=== PATIENT | female | born 2000 | race Caucasian/White ===

== ENCOUNTER 2023-10-23 14:11 | Outpatient (OUT) | payer OTHER, MEDICAID, SELFPAY ==
--- NOTE | 2023-10-23 14:14 | US_ITS ---
[address] [address] Patient Name: SHIV ZUÑIGA MRN: [id number] date: 2000 Sex: F Assigned Patient Location: [facility] Current Patient Location: [facility] Accession/Order Number: [id number] Exam Date: 10/23/2023 14:14 Report Date: 10/23/2023 15:13 At the request of: MEJIA BROWN Procedure: US OB transvaginal EXAMINATION: US OB transvaginal HISTORY: MISSED MENSES COMPARISON: No relevant comparison available. FINDINGS: Transvaginal images Alcocer intrauterine gestation Gestational sac: 3.18 cm, 8 weeks 1 day CRL: 2.16 cm, 8 weeks 6 days Yolk sac: 3.4 mm Heart rate: 174 beats minute Cervix: Closed, 3.5 cm The ovaries are normal in appearance Clinical age: 8 weeks 5 days Clinical VELMA: 05/29/2024 Ultrasound age: 8 weeks 6 days Ultrasound VELMA: 05/26/2024 US/US OB transvaginal IMPRESSION: Viable alcocer intrauterine gestation measuring 8 weeks 6 days Electronically authenticated by: HYUN WASHINGTON Date: 10/23/2023 15:13
== END 2023-10-23 14:12 | disposition home or self-care (01) ==
LOC: NOMS 14:11
PROVIDERS: PCP Internal Medicine; Visit Provider Obstetrics & Gynecology
DX: Z34.91 Encounter for supervision of normal pregnancy, unspecified, first trimester (principal); Z3A.08 8 weeks gestation of pregnancy; N92.6 Irregular menstruation, unspecified
CPT/HCPCS: 76817

== ENCOUNTER 2023-11-01 11:10 | Outpatient (OUT) | payer OTHER, MEDICAID, SELFPAY ==
[2023-11-01 11:39] LABS: Basophils Percent Auto 0.4 % (0.2-2.0); Eosinophils Absolute Auto 0.1 10^3/uL (0.0-0.7); Eosinophils Percent Auto 1.3 % (0.9-7.0); Hematocrit 37.1 % (36.0-48.0); Hemoglobin 12.6 g/dL (12.0-16.0); Immature Granulocytes Abs Auto 0.04 10^3/uL (0.00-0.03); Immature Granulocytes Pct Auto 0.5 % (0.0-0.5); Lymphocytes Absolute Auto 1.6 10^3/uL (1.2-3.8); Lymphocytes Percent Auto 18.7 % (20.5-60.0); Mean Corpuscular Hemoglobin 30.5 pg (26.7-34.0); Mean Corpuscular Volume 89.8 fL (81.0-99.0); Mean Platelet Volume 10.5 fL (9.5-13.5); Monocytes Absolute Auto 0.8 10^3/uL (0.3-0.8); Neutrophils Absolute Auto 5.9 10^3/uL (1.4-6.5); Neutrophils Percent Auto 70.1 % (43.0-75.0); Platelet Count 231 10^3/uL (150-450); Red Blood Count 4.13 10^6/uL (4.20-5.40); Red Cell Distribution Width 11.9 % (11.0-15.0); White Blood Count 8.4 10^3/uL (4.0-11.0)
[2023-11-01 11:48] LABS: Amphetamine Screen Urine NEGATIVE (NEGATIVE); Barbiturates Screen Urine NEGATIVE (NEGATIVE); Benzodiazepines Screen Urine NEGATIVE (NEGATIVE); Buprenorphine Screen Urine NEGATIVE (NEGATIVE); Cannabinoid Screen Urine NEGATIVE (NEGATIVE); Cocaine Screen Urine NEGATIVE (NEGATIVE); Methadone Screen Urine NEGATIVE (NEGATIVE); Methamphetamines Screen Urine NEGATIVE (NEGATIVE); Opiate Screen Urine NEGATIVE (NEGATIVE); Oxycodone Screen Urine NEGATIVE (NEGATIVE); Phencyclidine Screen Urine NEGATIVE (NEGATIVE); Tricyclic Antidepressant Urine NEGATIVE (NEGATIVE)
[2023-11-01 12:07] LABS: Estimated Average Glucose 103 mg/dL; Glycohemoglobin A1C 5.2 % (4.5-6.2)
[2023-11-01 12:52] LABS: BOX Test Sent Out UNITY
[2023-11-01 12:53] LABS: BOX Test Reference Lab UNITY
[2023-11-02 09:07] LABS: Rapid Plasma Reagin, Quant Non Reactive titer (NonRea<1:1); Rubella Antibodies, IgG 1.53 index (Immune >0.99)
[2023-11-02 11:07] LABS: HBsAg Screen Negative (Negative); HCV Ab Non Reactive (Non Reactive); HIV Ab/p24 Ag Screen Non Reactive (Non Reactive)
== END 2023-11-01 11:11 | disposition home or self-care (01) ==
LOC: LAB 11:11
PROVIDERS: PCP Internal Medicine; Visit Provider Obstetrics & Gynecology
DX: Z34.81 Encounter for supervision of other normal pregnancy, first trimester (principal); Z36.0 Encounter for antenatal screening for chromosomal anomalies; N92.6 Irregular menstruation, unspecified
CPT/HCPCS: 36415; 80307; 83036; 85025; 86592; 86762; 86803; 86850; 86900; 86901; 87086; 87340; 87389

== ENCOUNTER 2023-12-24 19:08 | Outpatient (REF) | payer MEDICAID, SELFPAY ==
--- OUTSIDE RECORDS SUMMARY | 2023-12-24 19:26 | XMS_ITS | CCD ---
Author Organization [facility] Care Team Providers Care Funnel Setter Name Role Phone Chica Whitmore Unavailable Unavailable Terence Pyle Unavailable Unavailable Nataprawira, Avani Unavailable Unavailable Chica Whitmore Unavailable Unavailable Al Bustillo Unavailable Unavailable Terence Pyle Primary Care Provider Pankaj Berger Unavailable Haim FILE CONVERSION OPERATOR-TRIMMING ASSEMBLER, FILE CONVERSION OPERATOR-CEMENT SPRAYER HELPERChica Unavailable Unavailable Terence Pyle Unavailable Unavailable Nataprawira, Avani Unavailable Unavailable Chica Whitmore Unavailable Unavailable Al Bustillo Unavailable Unavailable Terence Pyle Unavailable Unavailable Unavailable Chica Whitmore Unavailable Unavailable OK TYSON Primary Care Physician Pankaj Berger Unavailable Albert White Unavailable Chacho Domingo Unavailable Laura Day Unavailable Brenda Armstrong Unavailable DO Ok Tyson Primary Care Provider [phone] DO Ok Tyson Attending Provider Terence Pyle Primary Care Unavailabl e Self, Referral Referring Unavailable Ms. Chica Whitmore Attending UnavailTerence Munoz Primary Care Unavailemre e Ms. Chica Whitmore Attending Unavaila DO Ok Dlilon Primary Care Provider DO Terence Tolentino Attending Provider DO Chica Newman Attending Provider MD Yuval Pete Admit Provider MD Yuval Pete Attending Provider MD Reyna King Attending Provider Rayray Aquino Attending Unavailable DO Ok Tyson Primary Care Provider JOSE Molina Attending Provider MD Artur Kang Attending Provider Ok Tyson Primary Care Unavailable Yuval Pete Admitting Unavailable Yuval Pete Attending Unavailable Marbella, Ok Primary Care Unavailable Visci, Terence Admitting Unavailable Visci, Terence Attending Unavailable Charleschak, Ok Primary Care Unavailable Kuns - CHC, Florentino Blake Admitting Unavailable Kuns - CHC, Florentino Blake Attending Unavailable Charleschadrake, Ok Primary Care Unavailable Didion, Rahel Admitting Unavailable Didmeagan, Rahel Attending Unavailable Rinkes, Chica Admitting Unavailable Rinravindra, Chica Attending Unavailable Fernando, Reyna Admitting Unavailable Fernando, Reyna Attending Unavailable Marbella, Ok Primary Care Unavailable Chayaompaula, Artur Son Admitting Unavai labtammi Korompaula, Artur Son Attending Unavai lable Marbella, Ok Primary Care Unavailable DIDIONRAHEL Attending Unavailable VISCI, TERENCE Harry Attending Unavailable VISCI, TERENCE Harry Referring Unavailable VISCI, TERENCE Harry Attending Unavailable VISCI, TERENCE Harry Referring Unavailable MARBELLA, OK Munson Attending Unavailable OK TYSON Referring Unavailable VISCI, TERENCE Harry Attending Unavailable VISCI, TERENCE Harry Referring Unavailable NAVID CANTU Attending Unavailable Ok Tyson DO Primary Care Provider Luis Antonio Blas DO Unavailable Allergies Allergy Classification Reported Allergen(s) Allergy Type Date of Onset Reaction(s) Facility (6 sources) Wheat preparation; Translations: [wheat] Drug Allergy 08-30-2022 Abdominal Pain [facility] Medications Current Medications Medication Drug Class(es) Dates Sig (Normalized) Sig (Original) Ajovy (20 sources) Ajovy Active busPIRone hydrochloride 5 mg oral tablet (6 sources) Start: 07-03-2023 take 5 mg by mouth twice daily Buspirone Active 5 MG PO Twice daily July 03, 2023 12:00am Start: 02-16-2020 End: 08-30-2020 take 1 tablet by mouth twice daily busPIRone HCl - 5 MG Oral Tablet take 1 tablet by mouth twice a day Quantity: 60 Refills: 2 Ordered: 09-Mar-2020 Haim GARCIA-MT, Chica GROVES Start : 16-Feb-2020 End : 30-Aug-2020 Complete 1 ml galcanezumab-gnlm 120 mg/ml prefilled syringe (9 sources) Start: 07-09-2023 inject 120 mg by subcutaneous injection once Emgality 120 MG/ML prefilled syringe Inject 120 mg under the skin 1 (one) time 07/09/2023 Active Start: 04-26-2021 Emgality 120 M G/ML Subcutaneous Solution Auto-injector Start 240mg SC x 1 then 120mg SC q monthly Quantity: 1 Refills: 5 Ordered: 26-Apr-2021 Haim GARCIA-MT, Chica GROVES Start : 26-Apr-2021 Active This will replace Ajquynhy with insurance approval. hydrOXYzine pamoate 25 mg oral capsule (20 sources) Antihistamine Start: 01-14-2021 take 1-2 capsules by mouth four times daily as needed for anxiety Vistaril 25 mg Cap 1-2 cap(s), Oral, QID, PRN as needed for anxiety, # 20 cap(s), Refills(s) 0 Start Date: 01/14/21 Status: Ordered Start: 09-13-2019 hydrOXYzine HC l - 25 MG Oral Tablet TAKE 1 TABLET BY MOUTH NEEDED FOR ANXIETY Quantity: 90 Refills: 1 Ordered: 13-Apr-2020 Haim GARCIA-TM, Chica GROVES Start : 13-Sep-2019 Active hyoscyamine sulfate 0.125 mg sublingual tablet (20 sources) Start: 12-20-2020 take 1 tablet under the tongue every four to six hours Hyoscyamine Sulfate SL 0.125 MG 1 tablet under the tongue and allow to dissolve Sublingual every 4-6 hours for 30 days Dec, Active Start: 11-06-2020 Start: 12-24-2019 Hyoscyamine Argueta lfate 0.125 MG Sublingual Tablet Sublingual Quantity: 90 Refills: 0 Ordered: 24-Dec-2019 DO Start : 24-Dec-2019 Active Start: 12-24-2019 Hyoscyamine Argueta lfate 0.125 MG Sublingual Tablet Sublingual Quantity: 90 Refills: 0 Start : 24-Dec-2019 Active take 1 tablet under the tongue three times daily as needed Levsin/SL 0.125 MG 1 tablet under the tongue and allow to dissolve as needed Sublingual Three times a day for 30 Not-Taking ivabradine 5 mg oral tablet (1 source) Hyperpolarization-activated Cyclic Nucleotide-gated Channel Lexi Start: 07-04-2023 take 1 tablet by mouth twice daily at mealtime Ivabradine (Corlanor) 5 mg tablet Active 2.5 MG PO Twice daily 90 90 July 04, 2023 12:00am must administer with a meal/food linaclotide 0.145 mg oral capsule (20 sources) Guanylate Cyclase-C Agonist Start: 2021 Linzess 145 MCG 1 capsule at least 30 minutes before the first meal of the day on an empty stomach Orally Once a day for 30 day(s) Feb, Active Start: 10-16-2020 End: 09-18-2022 take 1 capsule by mouth once daily Linaclotide (Linzess) 72 mcg capsule Discontinued 72 MCG PO Daily October 16, 2020 12:00am September 18, 2022 8:28am Start: 03-16-2020 Linzess 290 MC G Oral Capsule Quantity: 90 Refills: 0 Ordered: 16-Mar-2020 DO Start : 16-Mar-2020 Active Start: 11-17-2019 End: 11-26-2019 take 1 capsule by mouth once daily Linaclotide (Linzess) 145 mcg capsule Discontinued 145 MCG PO Daily November 17, 2019 12:00am November 26, 2019 10:13am take 1 capsule by [facility] every twenty-four hours Linzess 72 MCG 1 cap(s) Orally Once a day for 30 day(s) Active take 1 capsule by [facility] every twenty-four hours Linzess 145 MCG 1 cap(s) Orally Once a day for 30 day(s) Active Linzess Active meclofenamate 100 mg oral capsule (1 source) Start: 05-17-2021 End: 05-22-2021 take 1 capsule by mouth three times daily meclofenamate 100 mg Cap 100 mg = 1 cap(s), Oral, TID, X 5 day(s), # 15 cap(s), Refills(s) 0, Pharmacy: [facility] [id number] [facility] [employer], 157.5, cm, 05/17/21 20:52:00 EDT, Height/Length Dosing, 47.8, kg, 05/17/21 20:52:00 EDT, Weight Dosing Start Date: 05/17/21 Stop Date: 05/22/21 Status: Ordered methylPREDNISolone 4 mg oral tablet (3 sources) Corticosteroid Start: 12-13-2020 Medrol (Dusty) 4 MG as directed Orally for 6 days Dec, Active 24 hr metoprolol succinate 25 mg extended release oral tablet (3 sources) beta-Adrenergic Lexi Start: 10-23-2023 End: 10-22-2024 take 1 tablet by mouth once daily metoprolol succinate XL (Toprol-XL) 25 MG 24 hr tablet Indications: Palpitations Take 1 tablet (25 mg) by mouth Daily Do not crush or chew. 30 tablet 10/23/2023 10/22/2024 Active propranolol hydrochloride 40 mg oral tablet (11 sources) beta-Adrenergic Lexi Start: 07-04-2023 take 40 mg by mouth twice daily Propranolol Active 40 MG PO Twice daily 180 90 July 04, 2023 12:00am Start: 07-03-2023 End: 07-04-2023 take 1 capsule by mouth once daily Propranolol (Inderal La) 80 mg capsule,extended release 24hr Discontinued 80 MG PO Daily July 03, 2023 12:00am July 04, 2023 11:03am Start: 09-26-2017 End: 09-28-2017 take 10 mg by mouth once daily Propranolol Discontinued 10 MG PO Daily September 26, 2017 12:00am September 28, 2017 10:12pm Completed/Discontinued Medications Medication Drug Class(es) Dates Sig (Normalized) Sig (Original) adapalene 0.001 mg/mg / benzoyl peroxide 0.025 mg/mg topical gel (13 sources) Retinoid Start: 07-03-2020 Adapalene-Benzoyl Peroxide 0.1-2.5 % External Gel Quantity: 45 Refills: 0 Ordered: 03-Jul-2020 DO Start : 03-Jul-2020 Active Ajovy 225 MG/1.5ML Subcutaneous Solution Auto-injector (1 source) Start: 11-05-2019 inject 225 mg by subcutaneous injection every month Ajovy 225 MG/1.5ML Subcutaneous Solution Auto-injector INJECT 225 MG Once monthly Quantity: 1 Refills: 3 Haim FILE CONVERSION OPERATOR-TRIMMING ASSEMBLER, FILE CONVERSION OPERATOR-CEMENT SPRAYER HELPER, Chica Start : 05-Nov-2019 Active 1.5 ML Pen [id number] 200 actuat albuterol 0.09 mg/actuat metered dose inhaler (18 sources) beta2-Adrenergic Agonist Start: 12-13-2020 take 2 puff(s) by inhalation every four hours as needed Albuterol Sulfate HFA 108 (90 Base) MCG/ACT 2 puffs as needed Inhalation every 4 hrs Dec, Active Start: 12-13-2020 take 2 puff(s) by in halation every four hours as needed Albuterol Sulfate HFA 108 (90 Base) MCG/ACT 2 puffs as needed Inhalation every 4 hrs Dec, Active Start: 12-13-2020 Start: 12-13-2020 take 2 puff(s) by mo uth every four hours as needed Albuterol Sulfate HFA 108 (90 Base) MCG/ACT Inhalation Aerosol Solution INHALE 2 PUFFS BY MOUTH EVERY 4 HOURS NEEDED Quantity: 7 Refills: 0 Ordered: 13-Dec-2020 DO Start : 13-Dec-2020 Active Start: 12-13-2020 take 2 puff(s) by mo uth every four hours as needed Albuterol Sulfate HFA 108 (90 Base) MCG/ACT Inhalation Aerosol Solution INHALE 2 PUFFS BY MOUTH EVERY 4 HOURS NEEDED Quantity: 7 Refills: 0 Ordered: 13-Dec-2020 DO Start : 13-Dec-2020 Active amitriptyline hydrochloride 25 mg oral tablet (2 sources) Tricyclic Antidepressant Start: 10-25-2020 take 1 tablet by mouth at bedtime Amitriptyline HCl - 25 MG Oral Tablet TAKE 1 TABLET BY MOUTH AT BEDTIME Quantity: 30 Refills: 0 Ordered: 21-Nov-2020 DO Start : 25-Oct-2020 Complete azithromycin 250 mg oral tablet (8 sources) Macrolide Antimicrobial Start: 10-09-2020 End: 10-16-2020 take 1 tablet by mouth once daily Azithromycin (Zithromax Z-Dusty) 250 mg Tablet Discontinued 250 MG PO Daily October 09, 2020 12:00am October 16, 2020 12:31am start on day 2 of therapy first dose given in ER cefdinir 300 mg oral capsule (17 sources) Cephalosporin Antibacterial Start: 11-05-2019 take 2 capsules by mouth once daily Cefdinir 300 MG Oral Capsule TAKE 2 CAPSULES DAILY. Quantity: 2 Refills: 0 Ordered: 05-Nov-2019 Haim HADDADN-TRIMMING ASSEMBLER, FILE CONVERSION OPERATOR-CEMENT SPRAYER HELPERChica Start : 05-Nov-2019 Active cephalexin 500 mg oral capsule (8 sources) Cephalosporin Antibacterial Start: 09-29-2017 End: 03-27-2018 take 1 capsule by mouth every eight hours Cephalexin (Keflex) 500 mg capsule Discontinued 500 MG PO Q8H 30 08September 29, 2017 12:00am March 27, 2018 10:29pm ciprofloxacin 500 mg oral tablet (1 source) Quinolone Antimicrobial Start: 01-02-2021 take 1 tablet by mouth every twelve hours Ciprofloxacin HCl 500 MG 1 tablet Orally every 12 hrs for 14 days Dec, Not-Taking ciprofloxacin 3 mg/ml / dexamethasone 1 mg/ml otic suspension (6 sources) Corticosteroid, Quinolone Antimicrobial Start: 11-19-2020 Ciprofloxacin-Dexa methasone 0.3-0.1 % Otic Suspension INSTILL 4 DROPS INTO EACH EAR TWICE A DAY FOR 7 DAYS Quantity: 8 Refills: 0 Ordered: 19-Nov-2020 DO Start : 19-Nov-2020 Complete Start: 11-19-2020 Ciprodex 0.3-0 .1 % 4 drops into both ears Otic Twice a day for 7 days Nov, Active citalopram 20 mg oral tablet (4 sources) Serotonin Reuptake Inhibitor Start: 08-25-2019 take 1 tablet by mouth once daily Citalopram Hydrobromide 20 MG Oral Tablet take 1 tablet by mouth once daily Quantity: 30 Refills: 3 Haim HADDADN-TRIMMING ASSEMBLER, FILE CONVERSION OPERATOR-CEMENT SPRAYER HELPERChica Start : 25-Aug-2019 Active Start: 08-25-2019 Citalopram Hyd robromide 10 MG Oral Tablet TAKE 1 AND 1/2 TABLETS DAILY. Quantity: 45 Refills: 5 Haim FILE CONVERSION OPERATOR-TRIMMING ASSEMBLER, FILE CONVERSION OPERATOR-CEMENT SPRAYER HELPER, Chica Start : 25-Aug-2019 Active clonazePAM 0.5 mg oral tablet (18 sources) Benzodiazepine Start: 12-25-2020 take 0.5-1 tablets by mouth three times daily as needed for anxiety clonazePAM 0.5 MG Oral Tablet TAKE 1/2-1 TABLET BY MOUTH 3 TIMES A DAY NEEDED FOR ANXIETY Quantity: 60 Refills: 0 Ordered: 25-Jan-2021 DO Start : 25-Dec-2020 Active Start: 10-16-2020 End: 09-18-2022 take 1 tablet by mouth twice daily Clonazepam (Klonopin) 0.5 mg tablet Discontinued 0.5 MG PO Twice daily 23 08October 16, 2020 6:51am September 18, 2022 8:28am dicyclomine hydrochloride 10 mg oral capsule (10 sources) Anticholinergic Start: 10-16-2020 End: 09-18-2022 take 10 mg by mouth three times daily Dicyclomine Discontinued 10 MG PO Three times daily October 16, 2020 12:00am September 18, 2022 8:28am diphenhydrAMINE hydrochloride 25 mg oral capsule (8 sources) Histamine-1 Receptor Antagonist Start: 03-27-2019 End: 11-12-2019 take 25 mg by mouth four times daily Diphenhydramine Hcl Discontinued 25 MG PO Four times daily March 27, 2019 1:00am November 12, 2019 9:48pm docusate sodium 100 mg oral capsule (5 sources) Start: 09-20-2022 End: 07-04-2023 take 1 capsule by mouth once daily Docusate Sodium (Colace) 100 mg capsule Discontinued 100 MG PO Daily September 20, 2022 12:00am July 04, 2023 10:12am doxycycline hyclate 100 mg oral capsule (20 sources) Tetracycline-class Drug Start: 11-26-2019 End: 10-09-2020 take 100 mg by mouth once daily Doxycycline Hyclate Discontinued 100 MG PO Daily November 26, 2019 12:00am October 09, 2020 3:24pm Start: 07-19-2019 Doxycycline Hy clate 100 MG Oral Capsule Quantity: 30 Refills: 0 Ordered: 19-Jul-2019 DO Start : 19-Jul-2019 Active Start: 03-27-2019 End: 11-12-2019 take 100 mg by mouth once daily Doxycycline Hyclate Discontinued 100 MG PO Daily March 27, 2019 1:00am November 12, 2019 9:48pm Doxycycline Not- Taking Doxycycline Acti ve DULoxetine 20 mg delayed release oral capsule (20 sources) Serotonin and Norepinephrine Reuptake Inhibitor Start: 02-05-2019 take 1 capsule by mouth twice daily DULoxetine HCl - 20 MG Oral Capsule Delayed Release Particles TAKE 1 CAPSULE BY MOUTH TWICE A DAY Quantity: 60 Refills: 4 Haim GARCIA-TRIMMING ASSEMBLER, JOSE-Chica CURTIS Start : 05-Feb-2019 Active Start: 10-11-2018 End: 10-16-2020 take 60 mg by mouth once daily Duloxetine Discontinued 60 MG PO Daily October 11, 2018 12:00am October 16, 2020 12:31am Start: 09-30-2018 take 1 capsule by mo ut once daily DULoxetine HCl - 40 MG Oral Capsule Delayed Release Particles TAKE 1 CAPSULE BY MOUTH EVERY DAY Quantity: 30 Refills: 2 Haim HADDADN-MT, JOSE-Chica CURTIS Start : 30-Sep-2018 Active DULoxetine HCl N ot-Taking DULoxetine HCl A ctive 1 ml erenumab-aooe 70 mg/ml auto-injector (7 sources) Start: 04-09-2021 inject 1 mL by subcutaneous injection every month Aimovig 70 MG/ML Subcutaneous Solution Auto-injector ADMINISTER 1 ML UNDER THE SKIN 1 TIME MONTHLY Quantity: 1 Refills: 3 Ordered: 09-Apr-2021 Haim HADDADN-TRIMMING ASSEMBLER, FILE CONVERSION OPERATOR-Chica CURTIS Start : 09-Apr-2021 Active escitalopram 10 mg oral tablet (8 sources) Serotonin Reuptake Inhibitor Start: 09-26-2017 End: 10-11-2018 take 10 mg by mouth once daily Escitalopram Oxalate Discontinued 10 MG PO Daily September 26, 2017 12:00am October 11, 2018 7:25pm Norethindrone-E.Est radiol-Iron (16 sources) Estrogen Start: 03-27-2019 End: 10-09-2020 take 1 tablet by mouth once daily Norethindrone-E.Es tradiol-Iron Discontinued 1 TAB PO Daily March 27, 2019 1:00am October 09, 2020 3:25pm Start: 10-11-2018 End: 03-27-2019 Norethindrone-E.Estradiol-Ir on (03/01 (28)) 1 mg-20 mcg (21)/75 mg (7) tablet Discontinued 1 TAB PO Daily October 11, 2018 12:00am March 27, 2019 10:57pm ferrous sulfate 325 mg oral tablet (5 sources) Start: 09-20-2022 End: 07-04-2023 take 325 mg by mouth once daily Ferrous Sulfate Discontinued 325 MG PO Daily September 20, 2022 12:00am July 04, 2023 10:12am fluconazole 150 mg oral tablet (1 source) Azole Antifungal Start: 06-29-2020 Fluconazole 1 50 MG Oral Tablet Quantity: 1 Refills: 0 Ordered: 29-Jun-2020 DO Start : 29-Jun-2020 Complete FLUoxetine 20 mg oral capsule (20 sources) Serotonin Reuptake Inhibitor Start: 11-29-2020 take 1 capsule by mouth once daily FLUoxetine HCl - 20 MG Oral Capsule TAKE 1 CAPSULE BY MOUTH EVERY DAY Quantity: 90 Refills: 0 Ordered: 29-Nov-2020 DO Start : 29-Nov-2020 Active Start: 11-01-2020 take 1 capsule by mo [facility] once daily FLUoxetine HCl - 10 MG Oral Capsule TAKE ONE CAPSULE BY MOUTH ONE TIME DAILY Quantity: 30 Refills: 0 Ordered: 01-Nov-2020 DO Start : 01-Nov-2020 Active Start: 03-29-2020 take 1 tablet by ashtyn once daily FLUoxetine HCl - 20 MG Oral Tablet TAKE 1 & 1/2 TABLETS BY MOUTH DAILY Quantity: 135 Refills: 1 Ordered: 30-Aug-2020 GERMAIN Manriquez Kathleen Start : 29-Mar-2020 Active Start: 03-29-2020 take 1.5 tablets by mouth once daily FLUoxetine HCl - 20 MG Oral Tablet TAKE 1.5 TABLET Daily Quantity: 45 Refills: 3 GERMAIN Manriquez Kathleen Start : 29-Mar-2020 Active PROzac Active 1.5 ml fremanezumab-vfrm 150 mg/ml prefilled syringe (18 sources) Start: 11-12-2019 End: 09-18-2022 Fremanezumab-Vfrm (Ajovy Autoinjector) 225 mg/1.5 mL auto-injector Discontinued 225 MG SUBCUT As Directed November 12, 2019 12:00am September 18, 2022 8:28am Start: 11-05-2019 End: 04-09-2021 inject 225 mg by subcutaneous injection every month Ajovy 225 MG/1.5ML Subcutaneous Solution Auto-injector INJECT 225 MG Once monthly Quantity: 1 Refills: 3 Ordered: 26-Mar-2021 Haim GARCIA-MT, JOSE-Chica CURTIS Start : 05-Nov-2019 End : 09-Apr-2021 Complete ibuprofen 800 mg oral tablet (16 sources) Nonsteroidal Anti-inflammatory Drug Start: 10-13-2018 End: 03-27-2019 take 800 mg by mouth every six hours Ibuprofen Discontinued 800 MG PO Q6H October 13, 2018 12:00am March 27, 2019 10:57pm Start: 09-29-2017 End: 10-11-2018 Ibuprofen Discontinued 600 M G PO every 6 to 8 hours September 29, 2017 12:00am October 11, 2018 7:25pm Julyl .07/09 (9 sources) .07/09 Not -Taking Act sigifredo ketorolac tromethamine 10 mg oral tablet (20 sources) Nonsteroidal Anti-inflammatory Drug, Cyclooxygenase Inhibitor Start: 03-29-2020 take 1 tablet by mouth every six hours Ketorolac Tromethamine 10 MG Oral Tablet take 1 tablet at headache onset may repeat once in 6 hours if needed. Quantity: 15 Refills: 0 Ordered: 22-Aug-2020 Haim GARCIA-MT, JOSE-Chica CURTIS Start : 29-Mar-2020 Active Start: 03-27-2019 End: 11-12-2019 take 10 mg by mouth four times daily Ketorolac Discontinued 10 MG PO Four times daily March 27, 2019 1:00am November 12, 2019 9:48pm Start: 04-29-2018 take 1 tablet by ashtyn th every six hours Ketorolac Tromethamine 10 MG Oral Tablet take 1 tablet at headache onset may repeat once in 6 hours if needed. Quantity: 15 Refills: 0 Haim GARCIA-MT, JOSE-Chica CURTIS Start : 29-Apr-2018 Active lamoTRIgine 25 mg oral tablet (20 sources) Mood Stabilizer, Anti-epileptic Agent Start: 11-26-2019 End: 10-16-2020 take 50 mg by mouth twice daily Lamotrigine Discontinued 50 MG PO Twice daily November 26, 2019 12:00am October 16, 2020 12:31am Start: 03-27-2019 End: 11-12-2019 take 25 mg by mouth four times daily Lamotrigine Discontinued 25 MG PO Four times daily March 27, 2019 1:00am November 12, 2019 9:48pm Start: 12-30-2018 End: 08-30-2020 take 2 tablets by mouth twice daily lamoTRIgine 25 MG Oral Tablet TAKE 2 TABLETS BY MOUTH TWICE A DAY Quantity: 360 Refills: 0 Ordered: 12-Dec-2019 Haim FILE CONVERSION OPERATOR-TRIMMING ASSEMBLER, FILE CONVERSION OPERATOR-CEMENT SPRAYER HELPER, Chica Start : 30-Dec-2018 End : 30-Aug-2020 Complete lamoTRIgine Not- Taking lamoTRIgine Acti ve LORazepam 0.5 mg oral tablet (20 sources) Benzodiazepine Start: 10-27-2019 End: 10-16-2020 Lorazepam Discontinued 0.5 MG PO As Directed November 12, 2019 12:00am October 16, 2020 12:31am lubiprostone 0.008 mg oral capsule (13 sources) Chloride Channel Activator Start: 12-08-2019 End: 08-30-2020 Amitiza 8 MCG Oral Capsule Quantity: 60 Refills: 0 Ordered: 08-Dec-2019 DO Start : 08-Dec-2019 End : 30-Aug-2020 Complete Start: 12-07-2019 take 1 capsule by mo [facility] twice daily at mealtime Amitiza 8 MCG 1 capsule with food and water Orally Twice a day for 30 day(s) Nov, Not-Taking magnesium oxide 400 mg oral capsule (2 sources) Start: 07-03-2023 End: 07-04-2023 take 400 mg by mouth once daily Magnesium Oxide Discontinued 400 MG PO Daily July 03, 2023 12:00am July 04, 2023 10:12am metoclopramide 10 mg oral tablet (8 sources) Dopamine-2 Receptor Antagonist Start: 03-27-2019 End: 11-12-2019 take 1 tablet by mouth every six hours Metoclopramide Hcl (Reglan) 10 mg tablet Discontinued 10 MG PO Q6H March 27, 2019 1:00am November 12, 2019 9:48pm metroNIDAZOLE 500 mg oral tablet (3 sources) Nitroimidazole Antimicrobial Start: 01-02-2021 take 1 tablet by mouth three times daily metroNIDAZOLE 500 MG Oral Tablet TAKE 1 TABLET BY MOUTH 3 TIMES A DAY FOR 14 DAYS Quantity: 42 Refills: 0 Ordered: 02-Jan-2021 DO Start : 02-Jan-2021 Complete midodrine hydrochloride 5 mg oral tablet (6 sources) alpha-Adrenergic Agonist Start: 05-11-2021 take 1 tablet by mouth three times daily Midodrine HCl - 5 MG Oral Tablet Take 1 tablet by mouth three times a day Quantity: 270 Refills: 0 Ordered: 03-Sep-2021 Haim FILE CONVERSION OPERATOR-TRIMMING ASSEMBLER, FILE CONVERSION OPERATOR-CEMENT SPRAYER HELPER, Chica Start : 11-May-2021 Active Josie 0.25-35 MG-MCG Oral Tablet (5 sources) Start: 05-21-2021 take 3 tablets by mouth once daily, then take 2 tablets by mouth once daily, then take 1 tablet by mouth once daily Josie 0.25-35 MG-MCG Oral Tablet TAKE 3 TABS DAILY FOR 3 DAYS, 2 TABS DAILY FOR 2 DAYS, THEN 1 TABLET DAILY THEREAFTER Quantity: 28 Refills: 0 Ordered: 21-May-2021 DO Start : 21-May-2021 Active minocycline 100 mg oral capsule (13 sources) Tetracycline-class Drug Start: 07-30-2020 Minocycline HCl - 100 MG Oral Capsule Quantity: 30 Refills: 0 Ordered: 30-Jul-2020 DO Start : 30-Jul-2020 Active naproxen 500 mg oral tablet (8 sources) Nonsteroidal Anti-inflammatory Drug Start: 03-27-2019 End: 11-12-2019 take 1 tablet by mouth twice daily Naproxen (Naprosyn) 500 mg tablet Discontinued 500 MG PO Twice daily March 27, 2019 1:00am November 12, 2019 9:48pm nitrofurantoin, macrocrystals 25 mg / nitrofurantoin, monohydrate 75 mg oral capsule (16 sources) Nitrofuran Antibacterial Start: 04-10-2022 End: 09-18-2022 take 1 capsule by mouth every twelve hours at mealtime Nitrofurantoin Monohyd/M-Cryst (Macrobid) 100 mg capsule Discontinued 100 MG PO Q12H April 10, 2022 1:00am September 18, 2022 8:28am Administer with a meal/food: swallow whole; do not open, crush, dissolve, or chew Start: 10-16-2020 End: 03-23-2021 take 1 capsule by mouth every twelve hours at mealtime Nitrofurantoin Monohyd/M-Cryst (Macrobid) 100 mg capsule Discontinued 100 MG PO Q12H 10 October 16, 2020 12:00am March 23, 2021 1:05pm administer with a meal/food; swallow whole; do not open, crush, dissolve , or chew omeprazole 40 mg delayed release oral capsule (20 sources) Proton Pump Inhibitor Start: 10-09-2020 End: 09-18-2022 take 40 mg by mouth once daily Omeprazole Discontinued 40 MG PO Daily 84 84 October 09, 2020 12:00am September 18, 2022 8:29am Omeprazole Activ e ondansetron 4 mg disintegrating oral tablet (20 sources) Serotonin-3 Receptor Antagonist Start: 03-27-2019 End: 11-12-2019 take 4 mg by mouth every eight hours Ondansetron Discontinued 4 MG PO Q8H March 27, 2019 1:00am November 12, 2019 9:48pm Start: 04-29-2018 Zofran 4 MG 1 tablet Orally prn for 21 days Sep, Active Start: 09-29-2017 End: 03-27-2018 take 1 tablet by mouth every eight hours Ondansetron (Zofran Odt) 4 mg tablet,disintegrating Discontinued 4 MG PO Q8H 9 3 September 29, 2017 12:00am March 27, 2018 10:30pm plecanatide 3 mg oral tablet (16 sources) Start: 11-26-2019 Trulance 3 MG Oral Tablet Quantity: 30 Refills: 0 Ordered: 26-Nov-2019 DO Start : 26-Nov-2019 Active Plecanatide (Trulance) 3 mg tablet (8 sources) Start: 11-26-2019 End: 10-09-2020 take 1 tablet by mouth once daily Plecanatide (Trulance) 3 mg tablet Discontinued 3 MG PO Daily November 26, 2019 12:00am October 09, 2020 3:25pm polyethylene glycol 3350 88332 mg powder for oral solution (20 sources) Osmotic Laxative Start: 11-13-2019 End: 10-16-2020 Polyethylene Glycol 3350 (Miralax) 17 gram/dose powder Discontinued 17 GM PO Twice daily 510 November 13, 2019 12:00am October 16, 2020 12:31am MiraLax Active polyethylene glycol 3350 638561 mg / potassium chloride 2970 mg / sodium bicarbonate 6740 mg / sodium chloride 5860 mg / sodium sulfate 42925 mg powder for oral solution (8 sources) Osmotic Laxative Start: 11-17-2019 End: 11-26-2019 Peg 3350-Electrolytes (Golytely) 236-22.74-6.74 -5.86 gram recon soln Discontinued 240 ML PO Once 4000 November 17, 2019 12:00am November 26, 2019 8:47am May drink 240 mLs or 8 ounces every 10 minutes until the entire bottle is consumed predniSONE 5 mg oral tablet (20 sources) Start: 10-09-2020 End: 03-23-2021 Prednisone Discontinued 5 MG PO Daily October 09, 2020 12:00am March 23, 2021 1:05pm take 4 tablets for 14 days. take 3 tablets for 7 days. take 2 tablets for 7 days. take 1 tablet for 7 days. Start: 10-13-2018 End: 10-13-2018 take 40 mg by mouth once daily Prednisone Discontinued 40 MG PO Daily October 13, 2018 12:00am October 13, 2018 6:20pm predniSONE Activ e Ghxnsjob-Wff-Up-Fa (5 sources) Start: 09-18-2022 End: 07-04-2023 take 1 tablet by mouth once Vtpimbrr-Oeu-Rh-Fa Discontinued TAB PO September 18, 2022 12:00am July 04, 2023 10:12am Start: 09-18-2022 take 1 tablet by mouth once Pr enatal Aouucnej-Pna-Ho-Fa Active TAB PO September 18, 2022 12:00am promethazine hydrochloride 12.5 mg oral tablet (20 sources) Phenothiazine Start: 07-03-2023 End: 07-04-2023 take 12.5 mg by mouth every six hours Promethazine Discontinued 12.5 MG PO Every 6 hours July 03, 2023 12:00am July 04, 2023 10:12am Start: 10-09-2020 take 1 tablet by ashtyn every six hours Promethazine HCl 12.5 MG 1 tablet as needed Orally every 6 hrs for 30 day(s) 30 Aug, 2021 Active Start: 09-27-2017 End: 09-28-2017 take 12.5 mg by mouth every six hours Promethazine Discontinued 12.5 MG PO Q6H September 27, 2017 12:00am September 28, 2017 10:12pm rifAXIMin 550 mg oral tablet (2 sources) Rifamycin Antibacterial Start: 11-24-2020 take 1 tablet by mouth three times daily Xifaxan 550 MG Oral Tablet TAKE ONE TABLET BY MOUTH THREE TIMES A DAY FOR 14 DAYS. Quantity: 42 Refills: 0 Ordered: 04-Dec-2020 DO Start : 24-Nov-2020 Complete rizatriptan 5 mg oral tablet (6 sources) Serotonin-1b and Serotonin-1d Receptor Agonist Start: 12-30-2018 take 1 tablet by mouth every two hours as needed, then take 3 tablets by mouth every twenty-four hours as needed Rizatriptan Benzoate 5 MG Oral Tablet TAKE 1 TABLET AT ONSET OF HEADACHE. MAY REPEAT EVERY 2 HOURS NEEDED. MAXIMUM 3 TABLETS IN 24 HOURS. Quantity: 9 Refills: 3 Haim FILE CONVERSION OPERATOR-TRIMMING ASSEMBLER, FILE CONVERSION OPERATOR-CEMENT SPRAYER HELPER, [place] Start : 30-Dec-2018 Active sacrosidase 8500 unt/ml oral solution (13 sources) Sucrose-specific Enzyme Start: 02-23-2021 take 1 mL by mouth three times daily at mealtime Sucraid 8500 UNIT/ML 1 ML Orally TID WITH MEALS AND SNACK for 30 day(s) Feb, Not-Taking Start: 02-23-2021 SUMAtriptan 25 mg oral tablet (8 sources) Serotonin-1b and Serotonin-1d Receptor Agonist Start: 10-11-2018 End: 03-27-2019 Sumatriptan Succinate (Imitrex) 25 mg tablet Discontinued 25 MG PO As Directed October 11, 2018 12:00am March 27, 2019 10:57pm tegaserod 6 mg oral tablet (13 sources) Serotonin-4 Receptor Antagonist Start: 07-11-2020 Zelnorm 6 MG Oral Tablet Quantity: 180 Refills: 0 Ordered: 11-Jul-2020 DO Start : 11-Jul-2020 Active 24 hr topiramate 50 mg extended release oral capsule (16 sources) Start: 10-11-2018 End: 03-27-2019 take 1 capsule by mouth once daily Topiramate (Trokendi Xr) 50 mg capsule,extended release 24hr Discontinued 50 MG PO Daily October 11, 2018 12:00am March 27, 2019 10:57pm Start: 09-26-2017 End: 10-11-2018 take 25 mg by mouth once daily Topiramate Discontinued 25 MG PO Daily September 26, 2017 12:00am October 11, 2018 7:25pm verapamil hydrochloride 40 mg oral tablet (7 sources) Calcium Channel Lexi Start: 03-22-2021 End: 05-30-2021 take 1 tablet by mouth three times daily Verapamil HCl - 40 MG Oral Tablet TAKE 1 TABLET 3 times daily Quantity: 90 Refills: 2 Ordered: 22-Mar-2021 Haim HADDADN-TRIMMING ASSEMBLER, JOSE-CEMENT SPRAYER HELPER, [place] Start : 22-Mar-2021 End : 30-May-2021 Complete Problems Active Problems Problem Classification Problem Date Documented Da te Episodic/Chronic Abdominal pain (20 sources) Unspecified abdominal pain; Translations: [Chronic abdominal pain] Onset: 04-27-2021 Resolved: 04-27-2021 Episodic Anxiety disorders (20 sources) Anxiety; Translations: [Anxiety state, unspecified] Onset: 02-21-2020 10-16-2020 Chronic Cardiac dysrhythmias (20 sources) Postural orthostatic tachycardia syndrome ; Translations: [Other specified cardiac dysrhythmias] 07-03-2023 Chronic Contraceptive and procreative management (1 source) Intrauterine contraception; Translations: [Presence of (intrauterine) contraceptive device] Episodic Fluid and electrolyte disorders (2 sources) Hypokalemia; Translations: [Hypokalemia] Onset: 05-17-2021 Episodic Headache; including migraine (20 sources) Migraine; Translations: [Migraine, unspecified, without mention of intractable migraine without mention of status migrainosus] Onset: 11-25-2021 05-04-2021 Chronic Headache; including migraine (8 sources) Headache; Translations: [Headache] 03-08-2021 Episodic Immunity disorders (13 sources) Immunoglobulin A deficiency; 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 Resolved: 2021 Chronic Menstrual disorders (3 sources) Menometrorrhagia; Translations: [Excessive and frequent menstruation with irregular cycle] Onset: 11-01-2022 11-01-2022 Chronic Mood disorders (6 sources) Mood swings; Translations: [Mood swings] Chronic Mood disorders (17 sources) Mood swings; Translations: [Emotional lability] Episodic Nausea and vomiting (20 sources) Nausea; Translations: [Nausea] Onset: 11-06-2020 Resolved: 11-06-2020 Episodic Nonspecific chest pain (17 sources) Precordial pain; Translations: [Precordial pain] Episodic Other bone disease and musculoskeletal deformities (8 sources) Costal chondritis; Translations: [Chondrocostal junction syndrome [Tietze]] 10-13-2018 Episodic Other circulatory disease (7 sources) Postural orthostatic tachycardia syndrome ; Translations: [POTS (postural orthostatic tachycardia syndrome)] Onset: 07-04-2023 Episodic Other disorders of stomach and duodenum (20 sources) Indigestion; Translations: [Functional dyspepsia] Episodic Other female genital disorders (2 sources) Abnormal uterine bleeding; Translations: [Other specified abnormal uterine and vaginal bleeding] Onset: 05-17-2021 Chronic Other female genital disorders (7 sources) History of past delivery; Translations: [Status post vaginal delivery] 09-19-2022 Episodic Other gastrointestinal disorders (20 sources) Celiac disease; Translations: [Celiac disease] Onset: 11-01-2022 05-04-2021 Chronic Other gastrointestinal disorders (4 sources) Celiac disease; Translations: [Celiac disease] Onset: 11-06-2020 Resolved: 2021 Chronic Other gastrointestinal disorders (17 sources) Other specified diseases of intestine; Translations: [Small intestinal bacterial overgrowth (SIBO)] Onset: 02-15-2021 Resolved: 07-03-2021 Episodic Other nutritional; endocrine; and metabolic disorders (14 sources) Fructose metabolism disorder; 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, unspecified] Chronic Other nutritional; endocrine; and metabolic disorders (1 source) Disorder of fructose metabolism, unspecified Onset: 2021 Resolved: 2021 Chronic Other and delivery including normal (8 sources) ; Translations: [Encounter for supervision of normal , unspecified, unspecified trimester] 04-10-2022 Episodic Other upper respiratory infections (10 sources) Acute pharyngitis, unspecified; Translations: [Acute upper respiratory infection, unspecified] Onset: 11-19-2020 Resolved: 12-13-2020 Episodic Pneumonia (except that caused by tuberculosis or sexually transmitted disease) (8 sources) Pneumonia; Translations: [Pneumonia, unspecified organism] 10-09-2020 Episodic Residual codes; unclassified (5 sources) Gestation period, 38 weeks; Translations: [38 weeks gestation of ] 09-18-2022 Episodic Residual codes; unclassified (2 sources) 38 weeks gestation of ; Translations: [ state, incidental] 09-20-2022 Episodic Residual codes; unclassified (2 sources) Gestation period, 13 weeks; Translations: [13 weeks gestation of ] 11-25-2023 Episodic Substance-related disorders (4 sources) Smoker; Translations: [Nicotine dependence, unspecified, uncomplicated] Onset: 11-01-2022 11-25-2021 Chronic Comment on above: Added secondary to d ocumentation in Social History. Syncope (20 sources) Syncope; Translations: [Syncope and collapse] Episodic Unclassified (1 source) Encounter for immunization; Translations: [Encounter for immunization] Onset: 11-11-2022 Unclassified (1 source) Encounter for care and examination of lactating mother; Translations: [Encounter for care and examination of lactating mother] Onset: 09-23-2022 Unclassified (1 source) Encounter for supervision of normal first , third trimester; Translations: [Encounter for supervision of normal first , third trimester] Onset: 09-18-2022 Unclassified (1 source) Encounter for screening for Streptococcus B; Translations: [Encounter for screening for Streptococcus B] Onset: 09-03-2022 Unclassified (1 source) Encounter for suspected problem with amniotic cavity and membrane ruled out; Translations: [Encounter for suspected problem with amniotic cavity and membrane ruled out] Onset: 08-10-2022 Unclassified (3 sources) OB Reminders Onset: 07-23-2022 07-23-2022 Urinary tract infections (20 sources) Bacterial urinary infection; Translations: [Urinary tract infection, site not specified] 10-16-2020 Episodic Past or Other Problems Problem Classification Problem Date Documented Da te Episodic/Chronic Cardiac dysrhythmias (7 sources) Palpitations; Translations: [Sinus tachycardia] Onset: 05-31-2023 06-18-2023 Episodic Immunizations and screening for infectious disease (4 sources) Contact with and (suspected) exposure to other viral communicable diseases; Translations: [Contact with and (suspected) exposure to other viral communicable diseases Z20.828] Onset: 11-19-2020 Resolved: 04-04-2021 Episodic Malaise and fatigue (9 sources) Asthenia; Translations: [Weakness] Onset: 02-21-2020 04-10-2022 Episodic Other connective tissue disease (20 sources) Pelvic floor dysfunction; Translations: [Other specified disorders of muscle] Onset: 11-01-2022 11-01-2022 Episodic Other connective tissue disease (1 source) Other specified disorders of muscle Onset: 2021 Resolved: 2021 Episodic Other ear and sense organ disorders (1 source) Other infective otitis externa, bilateral; Translations: [Other infective acute otitis externa of both ears H60.393] Onset: 11-19-2020 Resolved: 11-19-2020 Episodic Other gastrointestinal disorders (20 sources) Constipation; Translations: [Constipation, unspecified] Onset: 02-21-2020 11-17-2019 Episodic Other gastrointestinal disorders (3 sources) Constipation, unspecified; Translations: [Constipation K59.00] Onset: 11-06-2020 Resolved: 2021 Episodic Residual codes; unclassified (1 source) 36 weeks gestation of ; Translations: [36 weeks gestation of ] Onset: 09-03-2022 Episodic NEGATED: Highlighted row has not occurred!Residual codes; unclassified (20 sources) Disease Episodic Results Test Name Value Interpretation Reference Range Facility Urinalysis macro (dipstick) panel (U)on 11-25-2023 Bilirubin, UA Negative Negative - 4(70) +++ mg/dL [facility] Blood, UA Negative Negative - 50 Soto/mcL [facility] Clarity, UA Clear [facility] Color, UA Yellow [facility] Glucose, UA Negative Negative - 1999(110) ++++ mg/dL [facility] Interpretation and review of laboratory results Abnormal [facility] Ketones, UA Negative Negative - 160(16) ++++ mg/dL [facility] Leukocytes, UA Trace Negative - 500+++ Adarsh/mcL [facility] Nitrite, UA Negative Negative - Positive [facility] pH, UA 5.5 5 - 9 [facility] Protein, UA Negative Negative - 1999(20) ++++ mg/dL [facility] Spec Grav, UA 1.02 1 - 1.03 [facility] Urobilinogen, UA 0.2 0.2 - 12 mg/dL [facility] FPG ECG *OFFICE ONLY*on 06-11 FPG ECG *OFFICE ONLY* [facility] [place] [address] [place] [address] Electrocardiograph Report Signed Patient: Shiv Evangelista MR#: [id number] : 2000 Acct:[id number] Age/Sex: 23 / F ADM Date: 07/04/23 Loc: [facility] Room: Type: [facility] Attending Dr: Artur Kang MD Ordering Provider: Artur Kang MD Date of Service: 07/04/23 ECG/FPG ECG *OFFICE ONLY*: G90.A - Postural orthostatic tachycardia syndrome [POTS] Copies to: Test Reason : Blood Pressure : / mmHG Vent. Rate : 077 BPM Atrial Rate : 077 BPM P-R Int : 114 ms QRS Dur : 082 ms QT Int : 372 ms P-R-T Axes : 074 076 021 degrees QTc Int : 420 ms Normal sinus rhythm Nonspecific T wave abnormality Abnormal ECG Confirmed by Emmy Jimenez ([id number]) on 07/08/2023 1:09:14 PM Referred By: Electronically Signed By:mEmy Jimenez Transcribed By: MUS Signed By Emmy Jimenez MD 4 [id number] Normal [facility] Automated basophil %Ordered By: YUVAL PETE on 09-19-2022 Basophils/100 WBC (Bld) 0.2 % Normal . [facility] Comment on above: Order Comment: Comme nt Draw at 630 am Performed By: #### C BC #### [address] Automated basophil countOrde red By: YUVAL PETE on 09-19-2022 Basophils (Bld) [#/Vol] 0.0 10*3/uL Normal 0.0-0.2 [facility] Comment on above: Order Comment: Comme nt Draw at 630 am Result Comment: PERF ORMED BY: [place] [address] PATHOLOGIST JAVA DEVELOPER CONSULTANT CRAIG ROWE M.D. Performed By: #### C BC #### [address] Automated blood monocyte cou ntOrdered By: YUVAL PETE on 09-19-2022 Monocytes (Bld) [#/Vol] 1.5 10*3/uL High 0.0-0.8 [facility] Comment on above: Order Comment: Comme nt Draw at 630 am Performed By: #### C BC #### [address] Automated eosinophil %Ordere d By: YUVAL PETE on 09-19-2022 Eosinophils/100 WBC (Bld) 0.1 % Normal . [facility] Comment on above: Order Comment: Comme nt Draw at 630 am Performed By: #### C BC #### [address] Automated eosinophil countOr dered By: YUVAL PETE on 09-19-2022 Eosinophils (Bld) [#/Vol] 0.0 10*3/uL Normal 0.0-0.45 [facility] Comment on above: Order Comment: Comme nt Draw at 630 am Performed By: #### C BC #### [address] Automated monocyte %Ordered By: YUVAL PETE on 09-19-2022 Monocytes/100 WBC (Bld) 10.2 % Normal . [facility] Comment on above: Order Comment: Comme nt Draw at 630 am Performed By: #### C BC #### [address] Automated neutrophil %Ordere d By: YUVAL PETE on 09-19-2022 Neutrophils/100 WBC (Bld) 81.0 % Normal . [facility] Comment on above: Order Comment: Comme nt Draw at 630 am Performed By: #### C BC #### [place] [address] Complete Blood Count Auto Di ffon 09-19-2022 Mean Corpuscular HGB Conc 33.2 g/dL Normal 32.0-35.0 [facility] Comment on above: Order Comment: Comme nt Draw at 630 am Performed By: #### C BC #### [address] NRBC% 0.0 /100{WBC} Normal 0-0.5 [facility] Comment on above: Order Comment: Comme nt Draw at 630 am Performed By: #### C BC #### [address] Erythrocyte distribution wid th [Ratio] by Automated countOrdered By: YUVAL PETE on 09-19-2022 Erythrocyte distribution width (RBC) [Ratio] 13.3 % Normal 11.9-15.3 [facility] Comment on above: Order Comment: Comme nt Draw at 630 am Performed By: #### C BC #### [address] Erythrocytes [#/volume] in B lood by Automated countOrdered By: YUVAL PETE on 09-19-2022 RBC (Bld) [#/Vol] 3.24 10*6/uL Low 3.60-5.00 [facility] Comment on above: Order Comment: Comme nt Draw at 630 am Performed By: #### C BC #### [address] Hematocrit [Volume Fraction] of Blood by Automated countOrdered By: YUVAL PETE on 09-19-2022 Hematocrit (Bld) [Volume fraction] 28.0 % Low 34.0-46.4 [facility] Comment on above: Order Comment: Comme nt Draw at 630 am Performed By: #### C BC #### [address] Hemoglobin [Mass/volume] in BloodOrdered By: YUVAL PETE on 09-19-2022 Hemoglobin (Bld) [Mass/Vol] 9.3 g/dL Low 11.8-15.4 [facility] Comment on above: Order Comment: Comme nt Draw at 630 am Performed By: #### C BC #### [facility] [address] [place] [address] Leukocytes [#/volume] correc dionicio for nucleated erythrocytes in Blood by Automated counOrdered By: YUVAL PETE on 09-19-2022 WBC corrected for nucl RBC Auto (Bld) [#/Vol] 14.2 10*3/uL 3.8-11.6 [facility] Leukocytes [#/volume] in Blo od by Automated countOrdered By: YUVAL PETE on 09-19-2022 WBC (Bld) [#/Vol] 14.2 10*3/uL High 3.8-11.6 [facility] Comment on above: Order Comment: Comme nt Draw at 630 am Performed By: #### C BC #### [place] [address] [place] Lymphocytes [#/volume] in Bl ood by Automated countOrdered By: YUVAL PETE on 09-19-2022 Lymphocytes (Bld) [#/Vol] 1.2 10*3/uL Normal 1.00-4.8 [facility] Comment on above: Order Comment: Comme nt Draw at 630 am Performed By: #### C BC #### [place] [address] [place] Lymphocytes/100 leukocytes i n Blood by Automated countOrdered By: YUVAL PETE on 09-19-2022 Lymphocytes/100 WBC (Bld) 8.5 % Normal . [facility] Comment on above: Order Comment: Comme nt Draw at 630 am Performed By: #### C BC #### [place] [address] [place] MCH [Entitic mass] by Automa dionicio countOrdered By: YUVAL PETE on 09-19-2022 MCH (RBC) [Entitic mass] 28.7 pg Normal 24.7-34.3 [facility] Comment on above: Order Comment: Comme nt Draw at 630 am Performed By: #### C BC #### [address] [place] [address] [place] MCHC Auto (RBC) [Mass/Vol]Or dered By: YUVAL PETE on 09-19-2022 MCHC (RBC) [Mass/Vol] 33.2 g/dL 32.0-35.0 [facility] MCV [Entitic volume] by Auto mated countOrdered By: YUVAL PETE on 09-19-2022 MCV (RBC) [Entitic vol] 86.3 fL Normal 80-100 [facility] Comment on above: Order Comment: Comme nt Draw at 630 am Performed By: #### C BC #### [address] Neutrophils [#/volume] in Bl ood by Automated countOrdered By: YUVAL PETE on 09-19-2022 Neutrophils (Bld) [#/Vol] 11.5 10*3/uL High 1.8-7.7 [facility] Comment on above: Order Comment: Comme nt Draw at 630 am Performed By: #### C BC #### [address] Nucleated erythrocytes [Pres ence] in Blood by Automated countOrdered By: YUVAL PETE on 09-19-2022 Nucleated RBC Auto Ql (Bld) 0.0 /100{WBC} 0-0.5 [facility] Platelet mean volume [Entiti c volume] in Blood by Automated countOrdered By: YUVAL PETE on 09-19-2022 Platelet mean volume (Bld) [Entitic vol] 8.8 fL Normal 6.3-10.7 [facility] Comment on above: Order Comment: Comme nt Draw at 630 am Performed By: #### C BC #### [place] [address] [place] Platelets [#/volume] in Bloo d by Automated countOrdered By: YUVAL PETE on 09-19-2022 Platelets (Bld) [#/Vol] 181 10*3/uL Normal 150-450 [facility] Comment on above: Order Comment: Comme nt Draw at 630 am Performed By: #### C BC #### [address] [place] [address] [place] ABO/RH Typeon 09-18-2022 ABO and Rh group Nom (Bld) Blood group A Rh(D) positive Normal [facility] Comment on above: Result Comment: PERF ORMED BY: [place] [address] PATHOLOGIST JAVA DEVELOPER CONSULTANT CRAIG ROWE M.D. ABO/Rh Retypeon 09-18-2022 ABO/RH Recheck Result Positive Normal [facility] Comment on above: Result Comment: PERF ORMED BY: [place] [address] PATHOLOGIST JAVA DEVELOPER CONSULTANT CRAIG ROWE M.D. Amphetamine Screen Ql (U)Ord ered By: YUVAL PETE on 09-18-2022 Amphetamines Ql (U) Negative Negative [facility] Automated epithelial cells c ount in urine sediment (number/area)Ordered By: YUVAL PETE on 09-18-2022 Epithelial cells Auto (Urine sed) [#/Area] 10-19 [HPF] 0-2 [facility] Automated erythrocytes count in urine sediment (number/area)Ordered By: YUVAL PETE on 09-18-2022 RBC Auto (Urine sed) [#/Area] 0-1 [HPF] 0-4 [facility] Automated leukocytes count i n urine sediment (number/area)Ordered By: YUVAL PETE on 09-18-2022 WBC Auto (Urine sed) [#/Area] 20-49 [HPF] 0-4 [facility] Automated urine color determ inationOrdered By: YUVAL PETE on 09-18-2022 Color (U) Yellow Normal Yellow [facility] Comment on above: Order Comment: Name Collection Type:: Voided Performed By: #### R [place] W RFX #### [facility] , #### CBC #### [facility] [address] Automated urine hyaline cast s count (number/volume)Ordered By: YUVAL PETE on 09-18-2022 Hyaline casts Auto (U) [#/Vol] None seen [LPF] 0-1 [facility] Barbiturates [Presence] in U rine by Screen methodOrdered By: YUVAL PETE on 09-18-2022 Barbiturates Screen Ql (U) Negative Negative [facility] Benzodiazepines Screen Ql (U )Ordered By: YUVAL PETE on 09-18-2022 Benzodiazepines Ql (U) Negative Negative [facility] Benzoylecgonine [Presence] i n Urine by Screen methodOrdered By: YUVAL PETE on 09-18-2022 Benzoylecgonine Screen Ql (U) Negative Negative [facility] Bilirubin Test strip Ql (U)O rdered By: YUVAL PETE on 09-18-2022 Bilirubin Ql (U) Negative Negative [facility] Complete Blood Count Auto Di ffon 09-18-2022 Basophils (Bld) [#/Vol] 0.1 10*3/uL Normal 0.0-0.2 [facility] Comment on above: Result Comment: PERF ORMED BY: [place] [address] PATHOLOGIST JAVA DEVELOPER CONSULTANT CRAIG ROWE M.D. Performed By: #### R W[place] W RFX #### [facility] , #### CBC #### [facility] [address] [place] [address] [place] Basophils/100 WBC (Bld) 0.6 % Normal . [facility] Comment on above: Performed By: #### R W[place] W RFX #### [facility] , #### CBC #### [facility] [address] [place] [address] [place] Eosinophils (Bld) [#/Vol] 0.1 10*3/uL Normal 0.0-0.45 [facility] Comment on above: Performed By: #### R W[place] W RFX #### [facility] , #### CBC #### [facility] [address] [place] [address] [place] Eosinophils/100 WBC (Bld) 0.5 % Normal . [facility] Comment on above: Performed By: #### R W[place] W RFX #### [facility] , #### CBC #### [address] Erythrocyte distribution width (RBC) [Ratio] 13.2 % Normal 11.9-15.3 [facility] Comment on above: Performed By: #### R W[place] W RFX #### [facility] , #### CBC #### [address] Hematocrit (Bld) [Volume fraction] 31.8 % Low 34.0-46.4 [facility] Comment on above: Performed By: #### R W[place] W RFX #### [facility] , #### CBC #### [address] Hemoglobin (Bld) [Mass/Vol] 10.8 g/dL Low 11.8-15.4 [facility] Comment on above: Performed By: #### R W[place] W RFX #### [facility] , #### CBC #### [address] Lymphocytes (Bld) [#/Vol] 1.2 10*3/uL Normal 1.00-4.8 [facility] Comment on above: Performed By: #### R W[place] W RFX #### [facility] , #### CBC #### [place] [address] [place] Lymphocytes/100 WBC (Bld) 11.8 % Normal . [facility] Comment on above: Performed By: #### R WV W RFX #### [facility] , #### CBC #### [address] MCH (RBC) [Entitic mass] 29.0 pg Normal 24.7-34.3 [facility] Comment on above: Performed By: #### R WV W RFX #### [facility] , #### CBC #### [address] MCV (RBC) [Entitic vol] 85.7 fL Normal 80-100 [facility] Comment on above: Performed By: #### R WV W RFX #### [facility] , #### CBC #### [address] Mean Corpuscular HGB Conc 33.8 g/dL Normal 32.0-35.0 [facility] Comment on above: Performed By: #### R WV W RFX #### [facility] , #### CBC #### [address] Monocytes (Bld) [#/Vol] 1.0 10*3/uL High 0.0-0.8 [facility] Comment on above: Performed By: #### R WV W RFX #### [facility] , #### CBC #### [address] Monocytes/100 WBC (Bld) 9.3 % Normal . [facility] Comment on above: Performed By: #### R WV W RFX #### [facility] , #### CBC #### [address] Neutrophils (Bld) [#/Vol] 8.0 10*3/uL High 1.8-7.7 [facility] Comment on above: Performed By: #### R WV W RFX #### [facility] , #### CBC #### [address] Neutrophils/100 WBC (Bld) 77.8 % Normal . [facility] Comment on above: Performed By: #### R WV W RFX #### [facility] , #### CBC #### [facility] [address] NRBC% 0.1 /100{WBC} Normal 0-0.5 [facility] Comment on above: Performed By: #### R WV W RFX #### [facility] , #### CBC #### [facility] [address] [place] [address] Platelet mean volume (Bld) [Entitic vol] 8.9 fL Normal 6.3-10.7 [facility] Comment on above: Performed By: #### R WV W RFX #### [facility] , #### CBC #### [facility] [address] [place] [address] Platelets (Bld) [#/Vol] 195 10*3/uL Normal 150-450 [facility] Comment on above: Performed By: #### R WV W RFX #### [facility] , #### CBC #### [facility] [address] [place] [address] RBC (Bld) [#/Vol] 3.72 10*6/uL Normal 3.60-5.00 [facility] Comment on above: Performed By: #### R WV W RFX #### [facility] , #### CBC #### [facility] [address] [place] [address] WBC (Bld) [#/Vol] 10.3 10*3/uL Normal 3.8-11.6 [facility] Comment on above: Performed By: #### R WV W RFX #### [facility] , #### CBC #### [facility] [address] [place] [address] Dipstick and Microscopicon 0 09-18-2022 Appearance (U) Cloudy Critically abnormal Clear [facility] Comment on above: Order Comment: Name Collection Type:: Voided Performed By: #### R WV W RFX #### [facility] , #### CBC #### [address] Bacteria,Urine 2+ High None Seen [facility] Comment on above: Order Comment: Name Collection Type:: Voided Performed By: #### R WV W RFX #### [facility] , #### CBC #### [address] Bilirubin,Urine Negative Normal Negative [facility] Comment on above: Order Comment: Name Collection Type:: Voided Performed By: #### R WV W RFX #### [facility] , #### CBC #### [address] Glucose Ql (U) Normal Normal Normal [facility] Comment on above: Order Comment: Name Collection Type:: Voided Performed By: #### R WV W RFX #### [facility] , #### CBC #### [address] Hyaline Casts,Urine None Seen Normal 0-1 [facility] Comment on above: Order Comment: Name Collection Type:: Voided Result Comment: PERF ORMED BY: [place] [address] PATHOLOGIST JAVA DEVELOPER CONSULTANT CRAIG ROWE M.D. Performed By: #### R WV W RFX #### [facility] , #### CBC #### [address] Ketones Ql (U) Negative Normal Negative [facility] Comment on above: Order Comment: Name Collection Type:: Voided Performed By: #### R WV W RFX #### [facility] , #### CBC #### [address] Leukocyte esterase Test strip Ql (U) 4+ High Negative [facility] Comment on above: Order Comment: Name Collection Type:: Voided Performed By: #### R WV W RFX #### [facility] , #### CBC #### [address] Nitrite,Urine Negative Normal Negative [facility] Comment on above: Order Comment: Name Collection Type:: Voided Performed By: #### R WV W RFX #### [facility] , #### CBC #### [address] Occult Blood,Urine Trace High Negative [facility] Comment on above: Order Comment: Name Collection Type:: Voided Result Comment: PERF ORMED BY: [place] [address] PATHOLOGIST JAVA DEVELOPER CONSULTANT CRAIG ROWE M.D. Performed By: #### R WV W RFX #### [facility] , #### CBC #### [address] Protein,Urine Negative Normal Negative [facility] Comment on above: Order Comment: Name Collection Type:: Voided Performed By: #### R WV W RFX #### [facility] , #### CBC #### [facility] [address] [place] [address] [place] RBC LM.HPF (Urine sed) [#/Area] 0 /[HPF] Normal 0-4 [facility] Comment on above: Order Comment: Name Collection Type:: Voided Performed By: #### R WV W RFX #### [facility] , #### CBC #### [address] Specificy Abbot,Urine 1.004 Normal 1.001-1.030 [facility] Comment on above: Order Comment: Name Collection Type:: Voided Performed By: #### R WV W RFX #### [facility] , #### CBC #### [facility] [address] [place] [address] Squamous Epithelial Cell,Urine 10-19 High 0-2 [facility] Comment on above: Order Comment: Name Collection Type:: Voided Performed By: #### R WV W RFX #### [facility] , #### CBC #### [address] Urobilinogen,Urine Normal Normal Normal [facility] Comment on above: Order Comment: Name Collection Type:: Voided Performed By: #### R WV W RFX #### [facility] , #### CBC #### [address] WBC,Urine 20-49 High 0-4 [facility] Comment on above: Order Comment: Name Collection Type:: Voided Performed By: #### R WV W RFX #### [facility] , #### CBC #### [address] Ketones Auto test strip (U) [Mass/Vol]Ordered By: YUVAL PETE on 09-18-2022 Ketones (U) [Mass/Vol] Negative Negative [facility] Nitrite Test strip Ql (U)Ord ered By: YUVAL PETE on 09-18-2022 Nitrite Ql (U) Negative Negative [facility] OB Urine Drug Screen (NO THC )on 09-18-2022 Amphetamine Screen,Urine Negative Normal Negative [facility] Comment on above: Performed By: #### R WV W RFX #### [facility] , #### CBC #### [address] Barbiturate Screen,Urine Negative Normal Negative [facility] Comment on above: Performed By: #### R WV W RFX #### [facility] , #### CBC #### [facility] [address] Benzodiazepines Screen,Urine Negative Normal Negative [facility] Comment on above: Performed By: #### R WV W RFX #### [facility] , #### CBC #### [facility] [address] Cocaine Screen,Urine Negative Normal Negative [facility] Comment on above: Performed By: #### R WV W RFX #### [facility] , #### CBC #### [address] Opiate Screen,Urine Negative Normal Negative [facility] Comment on above: Performed By: #### R WV W RFX #### [facility] , #### CBC #### [address] Phencyclidine Screen, Urine Negative Normal Negative [facility] Comment on above: Result Comment: Thes e are unconfirmed results and should not be used for legal purposes. Drug Cut-Off Concentration: AMPH 1000 ng/mL LESLEY 200 ng/mL NETTIE 200 ng/mL COCM 300 ng/mL OP 300 ng/mL PCP 25 ng/mL PERFORMED BY: [place] [address] PATHOLOGIST JAVA DEVELOPER CONSULTANT CRAIG ROWE M.D. Performed By: #### R WV W RFX #### [facility] , #### CBC #### [address] Opiates [Presence] in Urine by Screen methodOrdered By: YUVAL PETE on 09-18-2022 Opiates Screen Ql (U) Negative Negative [facility] Phencyclidine Screen Ql (U)O rdered By: YUVAL PETE on 09-18-2022 Phencyclidine Ql (U) Negative Negative [facility] Comment on above: These are unconfirme d results and should not be used for legal purposes. Drug Cut-Off Concentration: AMPH 1000 ng/mL LESLEY 200 ng/mL NETTIE 200 ng/mL COCM 300 ng/mL OP 300 ng/mL PCP 25 ng/mL Protein Auto test strip (U) [Mass/Vol]Ordered By: YUVAL PETE on 09-18-2022 Protein (U) [Mass/Vol] Negative Negative [facility] RPR w/rfx to Quant TP Abson 09-18-2022 RPR, Rfx Quant RPR Non-Reactive Normal Non Reactive [facility] Comment on above: Result Comment: Perf ormed at: - [facility] [place] [address] [id number] [employer] Tender: Tony Avila PhD, Phone: [phone] PERFORMED BY: [place] [address] PATHOLOGIST JAVA DEVELOPER CONSULTANT CRAIG ROWE M.D. Performed By: #### R WV W RFX #### [facility] , #### CBC #### [address] Reagin Ab [Presence] in Seru m by RPROrdered By: YUVAL PETE on 09-18-2022 Reagin Ab RPR Ql (S) Non-Reactive Non Reactive [facility] Comment on above: Performed at: - [facility] [place] [id number] Director: Tony Avila PhD, Phone: [phone] Specific gravity Auto test s trip (U) [Rel density]Ordered By: YUVAL PETE on 09-18-2022 Specific gravity (U) [Rel density] 1.004 1.001-1.030 [facility] Urine Cultureon 09-18-2022 Bacteria identified Cx Nom (U) 50,000 colonies/ml mixed bacterial skin contaminants 2 Days PERFORMED BY: [place] [address] PATHOLOGIST JAVA DEVELOPER CONSULTANT CRAIG ROWE M.D. Normal [facility] Comment on above: Performed By: #### R WV W RFX #### [facility] , #### CBC #### [facility] [address] Urine bacteria detection by automated methodOrdered By: YUVAL PTEE on 09-18-2022 Bacteria Auto Ql (U) 2+ None Seen [facility] Urine clarity by refractomet ry automatedOrdered By: YUVAL PETE on 09-18-2022 Clarity Refractometry automated (U) Cloudy Clear [facility] Urine culture routineOrdered By: YUVAL PETE on 09-18-2022 Bacteria identified Cx Nom (U) 2 Days [facility] Urine glucose measurement by automated test strip (mass/volume)Ordered By: YUVAL PETE on 09-18-2022 Glucose Auto test strip (U) [Mass/Vol] Normal mg/dL Normal [facility] Urine hemoglobin detection b y automated test stripOrdered By: YUVAL PETE on 09-18-2022 Hemoglobin Auto test strip Ql (U) Trace Negative [facility] Urine leukocyte esterase det ection by automated test stripOrdered By: YUVAL PETE on 09-18-2022 Leukocyte esterase Auto test strip Ql (U) 4+ Negative [facility] Urine pH measurement by auto mated test stripOrdered By: YUVAL PETE on 09-18-2022 pH (U) 7.0 [pH] Normal 5.0-9.0 [facility] Comment on above: Order Comment: Name Collection Type:: Voided Performed By: #### R WV W RFX #### [facility] , #### CBC #### [facility] [address] [place] [address] Urobilinogen Auto test strip (U) [Mass/Vol]Ordered By: YUVAL PETE on 09-18-2022 Urobilinogen (U) [Mass/Vol] Normal mg/dL Normal [facility] Group B Streptococcus cultur eOrdered By: Chica Newman on 09-03-2022 S. agalactiae Org specific cx Ql (Unsp spec) No Group B Beta Streptococcus Isolated 3 Days [facility] Strep B Cultureon 09-03-2022 Strep B Culture No Group B Beta Streptococcus Isolated 3 Days PERFORMED BY: [place] [address] PATHOLOGIST JAVA DEVELOPER CONSULTANT CRAIG ROWE M.D. Normal [facility] Comment on above: Performed By: #### C USTB #### [address] Amnisure(Pamg-1)on Amnisure Negative Normal Negative [facility] Comment on above: Order Comment: Comme nt For suspected repture of membranes Result Comment: PERF ORMED BY: [place] [address] PATHOLOGIST JAVA DEVELOPER CONSULTANT CRAIG ROWE M.D. Performed By: #### R WV W RFX #### [facility] , #### CBC #### [address] Amphetamine Screen Ql (U)Ord ered By: Terence Tolentino on 08-10-2022 Amphetamines Ql (U) Negative Negative [facility] Automated erythrocytes count in urine sediment (number/area)Ordered By: Terence Tolentino on 08-10-2022 RBC Auto (Urine sed) [#/Area] 0-1 [HPF] 0-4 [facility] Automated leukocytes count i n urine sediment (number/area)Ordered By: Terence Tolentino on 08-10-2022 WBC Auto (Urine sed) [#/Area] 10-19 [HPF] 0-4 [facility] Automated urine color determ inationOrdered By: Terence Tolentino on 08-10-2022 Color (U) Yellow Normal Yellow [facility] Comment on above: Order Comment: Name Collection Type:: Voided Performed By: #### C UU, ADDONUAPLUS, OBUDS #### [facility] [address] [place] [address] Barbiturates [Presence] in U rine by Screen methodOrdered By: Terence Tolentino on 08-10-2022 Barbiturates Screen Ql (U) Negative Negative [facility] Benzodiazepines Screen Ql (U )Ordered By: Terence Tolentino on 08-10-2022 Benzodiazepines Ql (U) Negative Negative [facility] Benzoylecgonine [Presence] i n Urine by Screen methodOrdered By: Terence Tolentino on 08-10-2022 Benzoylecgonine Screen Ql (U) Negative Negative [facility] Bilirubin Test strip Ql (U)O rdered By: Terence Tolentino on 08-10-2022 Bilirubin Ql (U) Negative Negative [facility] Dipstick and Microscopicon 0 08-10-2022 Appearance (U) Clear Normal Clear [facility] Comment on above: Order Comment: Name Collection Type:: Voided Performed By: #### C UU, ADDONUAPLUS, OBUDS #### [address] Bacteria,Urine None Seen Normal None Seen [facility] Comment on above: Order Comment: Name Collection Type:: Voided Performed By: #### C UU, ADDONUAPLUS, OBUDS #### [address] Bilirubin,Urine Negative Normal Negative [facility] Comment on above: Order Comment: Name Collection Type:: Voided Performed By: #### C UU, ADDONUAPLUS, OBUDS #### [address] Glucose Ql (U) Normal Normal Normal [facility] Comment on above: Order Comment: Name Collection Type:: Voided Performed By: #### C UU, ADDONUAPLUS, OBUDS #### [address] Hyaline Casts,Urine None Seen Normal 0-8 [facility] Comment on above: Order Comment: Name Collection Type:: Voided Result Comment: PERF ORMED BY: [place] [address] PATHOLOGIST JAVA DEVELOPER CONSULTANT CRAIG ROWE M.D. Performed By: #### C UU, ADDONUAPLUS, OBUDS #### [address] Ketones Ql (U) Negative Normal Negative [facility] Comment on above: Order Comment: Name Collection Type:: Voided Performed By: #### C UU, ADDONUAPLUS, OBUDS #### [address] Leukocyte esterase Test strip Ql (U) 4+ High Negative [facility] Comment on above: Order Comment: Name Collection Type:: Voided Performed By: #### C UU, ADDONUAPLUS, OBUDS #### [place] [address] [place] Nitrite,Urine Negative Normal Negative [facility] Comment on above: Order Comment: Name Collection Type:: Voided Performed By: #### C UU, ADDONUAPLUS, OBUDS #### [address] Occult Blood,Urine Negative Normal Negative [facility] Comment on above: Order Comment: Name Collection Type:: Voided Result Comment: PERF ORMED BY: [place] [address] PATHOLOGIST JAVA DEVELOPER CONSULTANT CRAIG ROEW M.D. Performed By: #### C UU, ADDONUAPLUS, OBUDS #### [place] [address] [place] Protein,Urine Negative Normal Negative [facility] Comment on above: Order Comment: Name Collection Type:: Voided Performed By: #### C UU, ADDONUAPLUS, OBUDS #### [place] [address] [place] RBC LM.HPF (Urine sed) [#/Area] 0 /[HPF] Normal 0-4 [facility] Comment on above: Order Comment: Name Collection Type:: Voided Performed By: #### C UU, ADDONUAPLUS, OBUDS #### [address] Specificy Abbot,Urine 1.004 Normal 1.001-1.030 [facility] Comment on above: Order Comment: Name Collection Type:: Voided Performed By: #### C UU, ADDONUAPLUS, OBUDS #### [facility] [address] Squamous Epithelial Cell,Urine 0-1 Normal 0-2 [facility] Comment on above: Order Comment: Name Collection Type:: Voided Performed By: #### C UU, ADDONUAPLUS, OBUDS #### [address] Urobilinogen,Urine Normal Normal Normal [facility] Comment on above: Order Comment: Name Collection Type:: Voided Performed By: #### C UU, ADDONUAPLUS, OBUDS #### [address] WBC,Urine 10-19 High 0-4 [facility] Comment on above: Order Comment: Name Collection Type:: Voided Performed By: #### C UU, ADDONUAPLUS, OBUDS #### [address] Ketones Auto test strip (U) [Mass/Vol]Ordered By: Terence Tolentino on 08-10-2022 Ketones (U) [Mass/Vol] Negative Negative [facility] - UrinalysisOrder ed By: Terence Tolentino on 08-10-2022 Hyaline casts LM Ql (Urine sed) None seen [LPF] 0-8 [facility] Nitrite Test strip Ql (U)Ord ered By: Terence Tolentino on 08-10-2022 Nitrite Ql (U) Negative Negative [facility] No Panel InformationOrdered By: Terence Tolentino on 08-10-2022 Membranes Rupture (PAMG-1) Negative Negative [facility] OB Urine Drug Screen (NO THC )on 08-10-2022 Amphetamine Screen,Urine Negative Normal Negative [facility] Comment on above: Performed By: #### C UU, ADDONUAPLUS, OBUDS #### [address] Barbiturate Screen,Urine Negative Normal Negative [facility] Comment on above: Performed By: #### C UU, ADDONUAPLUS, OBUDS #### [facility] [address] Benzodiazepines Screen,Urine Negative Normal Negative [facility] Comment on above: Performed By: #### C UU, ADDONUAPLUS, OBUDS #### [address] Cocaine Screen,Urine Negative Normal Negative [facility] Comment on above: Performed By: #### C UU, ADDONUAPLUS, OBUDS #### [address] Opiate Screen,Urine Negative Normal Negative [facility] Comment on above: Performed By: #### C UU, ADDONUAPLUS, OBUDS #### [address] Phencyclidine Screen, Urine Negative Normal Negative [facility] Comment on above: Result Comment: Thes e are unconfirmed results and should not be used for legal purposes. Drug Cut-Off Concentration: AMPH 1000 ng/mL LESLEY 200 ng/mL NETTIE 200 ng/mL COCM 300 ng/mL OP 300 ng/mL PCP 25 ng/mL PERFORMED BY: [place] [address] PATHOLOGIST JAVA DEVELOPER CONSULTANT CRAIG ROWE M.D. Performed By: #### C UU, ADDONUAPLUS, OBUDS #### [facility] [address] [place] [address] Opiates [Presence] in Urine by Screen methodOrdered By: Terence Tolentino on 08-10-2022 Opiates Screen Ql (U) Negative Negative [facility] Phencyclidine Screen Ql (U)O rdered By: Terence Tolentino on 08-10-2022 Phencyclidine Ql (U) Negative Negative [facility] Comment on above: These are unconfirme d results and should not be used for legal purposes. Drug Cut-Off Concentration: AMPH 1000 ng/mL LESLEY 200 ng/mL NETTIE 200 ng/mL COCM 300 ng/mL OP 300 ng/mL PCP 25 ng/mL Protein Auto test strip (U) [Mass/Vol]Ordered By: Terence Tolentino on 08-10-2022 Protein (U) [Mass/Vol] Negative Negative [facility] Specific gravity Auto test s trip (U) [Rel density]Ordered By: Terence Tolentino on 08-10-2022 Specific gravity (U) [Rel density] 1.004 1.001-1.030 [facility] Squamous epithelial cells de tection in urine sediment by light microscopyOrdered By: Terence Tolentino on 08-10-2022 Epithelial cells.squamous LM Ql (Urine sed) 0-1 [HPF] 0-2 [facility] Urine Cultureon 08-10-2022 Bacteria identified Cx Nom (U) 50,000 colonies/ml mixed bacterial skin contaminants 2 Days PERFORMED BY: [place] [address] PATHOLOGIST JAVA DEVELOPER CONSULTANT CRAIG ROWE M.D. Normal [facility] Comment on above: Performed By: #### C UU, ADDONUAPLUS, OBUDS #### [address] Urine bacteria detection by automated methodOrdered By: Terence Tolentino on 08-10-2022 Bacteria Auto Ql (U) None seen None Seen [facility] Urine clarity by refractomet ry automatedOrdered By: Terence Tolentino on 08-10-2022 Clarity Refractometry automated (U) Clear Clear [facility] Urine culture routineOrdered By: Terence Tolentino on 08-10-2022 Bacteria identified Cx Nom (U) 2 Days [facility] Urine glucose measurement by automated test strip (mass/volume)Ordered By: Terence Tolentino on 08-10-2022 Glucose Auto test strip (U) [Mass/Vol] Normal mg/dL Normal [facility] Urine hemoglobin detection b y automated test stripOrdered By: Terence Tolentino on 08-10-2022 Hemoglobin Auto test strip Ql (U) Negative Negative [facility] Urine leukocyte esterase det ection by automated test stripOrdered By: Terence Tolentino on 08-10-2022 Leukocyte esterase Auto test strip Ql (U) 4+ Negative [facility] Urine pH measurement by auto mated test stripOrdered By: Terence Tolentino on 08-10-2022 pH (U) 7.0 [pH] Normal 5.0-9.0 [facility] Comment on above: Order Comment: Name Collection Type:: Voided Performed By: #### C DAYO RITCHIE OBUDS #### [address] Urobilinogen Auto test strip (U) [Mass/Vol]Ordered By: Terence Tolentino on 08-10-2022 Urobilinogen (U) [Mass/Vol] Normal mg/dL Normal [facility] Coding Summary.on 11-28-2021 Coding Summary. [id number] Gh0bWw+PGhlYWQ+PE1FV FMbF75vtPPyjC4OB7oJL F9KPFXWKOOTTT0VLX0hp LO3WJyaC3XvdnGf IxeadBFwUL07NSn5VDK3 uLmtXAcqsT3jsEZqX3y5 OeDiYU64wV65ULifPFFc WzW0WyVqcsycwZUj Q8lbJvAujTMqXlw+PHRh YmxlIHdpZHRoPScxMDAl OyRumFxvMZ4qGy4eWFDu LWNvbGxhcHNlOiBj l0mvNKFtUTmzGI3xzQlu P0GijOQ2VMDbo7s8Rj35 dHI+QCElXQS5xZggTMrw r400VkDsk6glSVH0 oXTqOCruPYU4F71gt5B9 DQAnLEErGYB6bLO5wK2e oOlqfilkE9OpiJKkClD6 UDB7sQYilS7hhIli syqghP5gKuz+K15USJ3B MODBJE4ZZvq8C1BvOeuo dHI+AM86FIHzQM83fARg rZUpi3vhhZp8WqRr UTWkFES8pHhyUFmas2Hc OCFpK40hqJStb6C6KEJf sAawaTChAmJoeWA3bV7q BKonodeeg4loswyz Jucff7qzsx58jD09T26b ZTfmPUZiAQY3VLCzYSMw mTotdj4bfA8jNv6+IDxj y8eva9vdcQw4XkVa IAOfksEldKitFXM5j0Nh Le77Z5HdvGujy0TnAfq8 ds69gOJzh9T2pCB1BQbf ECBozS2eDDjxKbJ5 IPEkTbPwtA52rXKyPSwy Mj3goBrlkLunHV9mWHLy uwuzBGDttZ6dKBOowPDl sBsiVM0fCVYkodxn o856PbJlGQV0CYThaFLq M3KzyV9uNyJaGOAuRIGk W5ChqITmQLvyQ231SHyx PrV7EOSleyYwU7Cu TVRgfSizBcO4d1Y1Lv4Y v0UwgrkqNLO1KFcrCTKl YfM9QvUfSjF7V5ZyVvm9 KVEfgCduCO9pO2In AESoqqxzikyumGX9MGMc XXLbgN61tWImAXgdLt7x v7L8m377TJGqBYXhnF81 Ap1xmZplGZAltFTX uT6zecznb7zxwndjWwFi FFLyBHc6FAn8ONQiaTxu NaSdOMK7InH6QOP5tUNp gR1ogPjzssbwzR5y Oyc+V03xeB9kHVT1AOQ5 wwmxRCFawdVmTP52PL96 B7ReTmtfkEXxcUK+PGRp eaJzzDhqUW7gSiXw g7oor6DkWTunM0JxQOZs JEgeQmt8TEEiYYC8bPB0 tC7mOXTdHByxq3B2aVZ2 I7RetvCxmf2es0qo JKRrBTtsF55waKWug6W7 RJSrnDI8MTFwbNgqDlJd iX82Jfc+PQKmsWffj5Cu Fqrbx5iye4hfvVh6 IjMwJSIgdmFsaWduPSJ0 b4DfXd46K04iYYypTDJu GIQpBYReLCMhoOvhdv7g vF2lPo4+PGNvbCB3 uEN2xA0pDUJqMqQ7DSxm Y821AoVtaKLjUhrus8ms c6zxwYy7XdBkBRIqhiYd fTgiMYC8i6CaLu24 F44lZJvgHCZaCMSwCNIb UVDugKneho0avP9mWi8+ IN9xq5jdpx47fY00xCU+ EJUvKFU3yJuyWEyy CBQsbT2oGEgiCwR7TXNv JvTbaU23pLQqQZlwXn2p kYhieZtmAB3mCQUcfdfz k726RzAqn6veMPCc zZMmWJnxPFE9N49df4Y9 THDoOZHeQUD8sCF1wZ6r bGlnbjogbGVmdDsgdmVy zGzbHNwvCCuaB430 IHRvcDsnPlBhdGllbnQg PzTpWDv3H9NnEyg9VMCt wNvtTP9woLVsPZrlCj6h nDjixYpnNB5sOBHq whioh065EfYry3fxYPAv iMJuRXkeFLW4X54se9D0 ZKEcLJItQHQ9tXB5fW5y bGlnbjogbGVmdDsg mcDigGklZGkwTLceK221 IHRvcDsnPkJpcnRoIERh yCO3RY19OO28tLNlh3A1 aZI0W1VyNXRbhhwr vjttrIR6HEQmAKZhuD90 Qc3bmHfpBj1jOIMyJUB8 COZwrUHnH8DihP3fLxNc DDIfRJQkO8LxtDDx EQfwI962CMcjHvW1JJKb toYpO2XkBZIdcTdlXzQ7 c3A2Gy0GQ1O5XS52KT49 eVOne3Z6jSE0L6Dh KPWkfksknsbjvPJ9OWLs GDMykT50Aw0tvAegYi7p PUJdUBP9TQIhoZQsN9So gF0lKhIoCXYbXIQr F3JxdSWzIFouX157QZdj GaU2FMByakKdC6PqOOGt uPuuStX9b1S6Ap8OHKp6 KZ18LK87cFPzk4E1 kKD9J8BuNDFowtnseuzl oOK0QLUiEODehS62Dk4q wAhfAr7zRVGbYVQ4NIPb aEHcI4UdmL9zZlIk JBEyRYHrM8CnvLElLCxl U223IVosXeP0KMLzsbMd G6CuYOJsfLuqAuV2w1D3 Vp6HAJFyHR07AWH1 iXQ2HF07DY23P5KgQsgz dGFibGU+PHRhYmxlIHdp ZHRoPScxMDAlJyBzdHls JK1vXn4xZGCwYVAq aKptvMIqRyDmd9ohUHRb YGhcSY7jlQucQ9WvhXP3 RFRsj6u3Em12K54cM9Qr dXA+MJZmkFU6aSW3 dX6tCePqUiO9YTwdW607 SaDdbSHpUjfpl6obz7sx sFx2IvP4TDYlzpZftIcf DSO0t7RlNu15F87j IHdpZHRoPSIxNSUiIHZh sVxwsb5zcN1eIq4+PGNv jYB2cEC8wL5sNxLqZcD1 XBhdK199AoCtyNZh Jbuzs2wub0jphMj3FuUr ZNDgjnOppWimWLX2n5Vh Ge30T9KqvYvrr3ZxKrr9 ot29jBEat0C4nBC2 B6DfXZFkdqiwwXFvrFrh AX2kFSGucsqpEKIqbL9d USPyE2p4LbNmCgR5RAcm E2ZrhbZ2HTBgnXXo RGdfJJQ1K17sc3V3VHBj SJEoCWK1mCL1sU3lyIbs bjogbGVmdDsgdmVydGlj SEikBPlaO547BVMb pNhhDLPcuV1jHKFdrXLd zDqdDO4uHMGzognnZyMJ EZhsKSATIL7LWEX9Z9Km Rhb5GMQqwSdeTT4k rDFzHJasAm2vvQulnPkc EB8bLRNnoimfXHYpwG2d VQHqcLEkeUxjJQ7rHSAo lqhuv408ZfUqLBP7 PPPbyVZoV6TpuI4jVjGo URYxTCZmP4QafWKyOEqm J077JWzcHbI1OWTvkuJm A0WgCXRgoGyiNhL4 l1O4Pp9gVP5yKO4pEESr ED81UM09xHXzw1L2jIR8 E2BuGIXkmcndinyqhJR2 SRNmRXXoqZ03jUZy OSvlCq7yq5D9z629NUMv BXEzaY63Ab7nsMofKNRf gEMQdL9snuxvl9uxeajs NtUwSEUbTJe3DEy7 WJYxpPykBoVeMIA0XaF4 VGI4yDOcmK8dnZclaygi xT5tOjx+MjAgWWVhcnM8 I9IaSpx0SXGreVyp PR7uxBUeVGypHm4gaPal pLtfJG6sBMQtjaleZMUn hW4tCTYvvWLnuWpzQK7q USDzyvibi006NhBp TDS2RVIdiWAlJ6OgmI3j HaMvPJIsSLCsI4WaoULr AYsrG446MDqnItY4OOQf ccJxU6NgTGNxwJfg ZuZ1n1A5Jv3EIP2cyUY0 Z1AiMec9LJKqpSksUL6x mRWnFXycPt2qfPhfqOyu XJ4nNSCzdnlaIPTb mS4fUKVccMXeeYbcXM1i XZVcxosoa784LwRmGOV4 OAMofTZlM2AogK3mGrHm EUWbSGUlI2BzkOJv HIyyH340OOdyHzS0JUQp atPqJ7PuOMSkjYklOzV2 o9J5No7CvQZxK7NoS6h5 X2TaGwqxaHY+PC90 LDGfAL87eTOlwRKbo3pk fVf1NnSfZJBmDBV2dCux UIgci8GbMWWyB49gtPFj a1J2UYHakAsvfCWj LkKvnMC3xC6jSPcgqqhv u2jrahpvHetfe4tjgj45 gY61G67oYVoeHIRpRKAs XSAfNDLxnAgkvw6d dB1bQa6+UFGfqUU8hHG7 hM7vFoClIdQ2VMfxY188 XlDkiVBsGyato8aar5xk eXe8SxXuVXAisuBf mIqgMGJ5q5FmFi88W87q IHdpZHRoPSIyMCUiIHZh tYxkbf6qrR7bNl4+PC9j o3hrcj36fA84rTA+ YRIlYXN5tTqzGCjsIQDw zM6oSTcbRcB1GWJrChXm gU94yLVjYGlgLg7ieDru jCwkLV1pNGHoppqp n155OdSmh4qyZDGisWJp PLokFGT7C97oq6I7DQOm ENMkKSX0kUJ9wE6hkKfg bjogbGVmdDsgdmVy nBerCZcqVFiwS359WZOg pHhiSpSxiIGeK2togzRT IC3wLooyhDI+PHRkIHN0 mJrfZSsyUONkhZ9w UVAiZ9i2MzKdNeW9SEvh W7CoikO0BPKxbULvWMUv hYTArE5fzgjwh9eorhxc YaVrHOEcKMn3REh6 AQEpoNvrXuPlMPA7WeS5 QUL8aWEwoO9fhQmfhcsv bZ7jFpq+RklOOjwvdGQ+ JJYrVXM7cVtsTTeo OJSszL2mYHNgS7b2WkXh SqY4SHikC4RwdvC7PAAj cMDrUNUpgSZXgO3hrrrf w5xgcsdfOuAzOWTc OXv4JIq0WLBdoDpvJsJd HPG5FvT5LNU5cPAktH0c rKcfmwzceH8uZfb+TVJO OjwvdGQ+PHRkIHN0 bIkrGFbzDGFkiG8lJMUe L8t5GfJgPaG2VOpfH2Eg wzR0CYPbrZLhNEMwfIRH rG4mzxixx1teiluj JgPrUYOnJPy8RWz5STNw zHqwNuNeRNY9TtK1SHE0 oBEzwW1bsWjdnljbbM3d Oyc+MSX3SMS3WJ63 EG92R8ZuFbganPSisWN+ PHRhYmxlIHdpZHRoPScx BSIbVtZzeQovRU4yEs4b ZGVyLWNvbGxhcHNl OiBj (more content not included)... [facility] Discharge Instructionson Discharge Instructions [id number] 5#1.00CD:127 [facility] ED Clinical Summaryon 2021 ED Clinical Summary [place] [address] ED Clinical Summary Person Information Name: SHIV EVANGELISTA/[facility] Age: 21 Years : 2000 Sex: Female Language: Moldovan PCP: OK TYSON DO Marital Status: Single Visit Id: Visit Reason: Headache - Recurrent; Nausea; MIGRAINE Speciality: Acuity: 3 Enc Type: Emergency Med Service: Emergency Arrival: 11/25/2021 18:57:45 Discharge: 11/25/2021 23:47:04 LOS: 000 04:50 Checkin: 11/25/2021 18:57:45 Checkout: 11/25/2021 23:47:04 Dispo Type: Home (Routine DC) EVENTS: Event Name Event Status Request Date/Time Start Date/Time Complete Date/Time Arrive Complete 11/25/2021 18:57:45 11/25/2021 18:57:45 11/25/2021 18:57:45 Document Home Meds Request 11/25/2021 18:57:45 Triage Complete 11/25/2021 18:57:45 11/25/2021 19:01:45 11/25/2021 19:01:45 RN Exam Complete 11/25/2021 20:17:40 11/25/2021 20:17:40 11/25/2021 20:17:40 Bed Assign Complete 11/25/2021 21:33:33 11/25/2021 21:33:33 11/25/2021 21:33:33 Dr Exam Complete 11/25/2021 21:33:33 11/25/2021 21:35:45 11/25/2021 21:35:45 Registration Complete 11/25/2021 21:35:45 11/25/2021 21:42:51 11/25/2021 21:42:51 Reg Complete Request 11/25/2021 21:42:51 Reg Bed Request Complete 11/25/2021 21:42:51 11/25/2021 21:42:51 11/25/2021 21:42:51 Meds Admin Complete 11/25/2021 22:06:16 11/25/2021 22:20:15 Discharge Complete 11/25/2021 23:32:03 11/25/2021 23:47:16 11/25/2021 23:47:16 Transfer Complete 11/25/2021 23:47:16 11/25/2021 23:47:16 11/25/2021 23:47:16 ADDR[address]: [id number] [facility] [id number] [facility] DOC NOTES: MEDICAL INFORMATION: Prescriptions Given: Medications to Continue with No Changes Other Medications hydrOXYzine (Vistaril 25 mg Cap) 1-2 cap(s) By Mouth 4 times a day as needed as needed for anxiety. Refills: 0. PATIENT EDUCATION INFORMATION: Instructions: Migraine Headache Follow up: With: Address: When: [address], [address] [address] [facility] (1) In 3 days DIAGNOSIS: Migraine headache [facility] ED Note-Physicianon 11-27-19 ED Note-Physician Basic Information Time Seen: Rayray Aquino DO 11/25/2021 21:35 Chief Complaint pt reports hx of headaches, tok her meds at home. not getting better. nausea History of Present Illness HPI: Patient is a 21-year-old female past medical history of celiac disease and migraines who presents the ED for a headache. Patient states that tonight she developed a headache that feels like her previous migraines. She tried taking her at home medications with minimal improvement. She states the pressure is mainly in her temples. She states that she has some slightly blurred vision but this is also typical of her past migraines. She denies any numbness or weakness. She denies any recent fevers or chills. She denies any neck pain or stiffness. ROS: A 10 point review of systems is negative except as noted above. Physical exam: General: nontoxic appearing and in no distress HEENT: Mucous membranes moist Neuro: awake and alert cranial nerves II through XII are intact. Gross motor and station all 4 extremities are intact. Neck: supple, trachea midline. No meningismus Card: Heart regular rate and rhythm no murmur Resp: Lungs clear to auscultation no wheeze or rhonchi Abd: Soft and nondistended. No tenderness with no rebound or guarding. Ext: No gross deformity or edema Physical Exam Vitals & Measurements T: 36.9 ?C(Tympanic) HR: 69(Peripheral) RR: 14 BP: 123/83 SpO2: 100% HT: 157 cm WT: 48 kg BMI: 19.47 Medical Decision Making Patient is well-appearing in no distress. His headache is typical of her prior migraines and have been progressively this evening. No recent trauma or illness. No signs of meningitis on my exam. We will give her IV fluids Toradol Reglan and Benadryl. On reassessment after medications and fluids the patient states that she has had complete resolution of the headache and she feels much better. We discussed the plan of discharge with continued oral hydration and rest and she will follow closely with her primary care physician. We discussed return precautions. Patient states understanding agreement this plan was discharged in stable condition. Assessment/Plan Migraine headache (G43.909: Migraine, unspecified, not intractable, without status migrainosus) Orders: diphenhydrAMINE, 25 mg = 0.5 mL, Injection, IV Push, Once, Stop date 11/25/21 22:05:00 EDT, STAT, Start date 11/25/21 22:05:00 EDT, 11/25/21 22:05:00 EDT ketorolac, 15 mg = 1 mL, Injection, IV Push, Once, Stop date 11/25/21 22:06:00 EDT, STAT, Start date 11/25/21 22:06:00 EDT, 11/25/21 22:06:00 EDT metoclopramide, 10 mg = 2 mL, Injection, IV Push, Once, Stop date 11/25/21 22:05:00 EDT, STAT, Start date 11/25/21 22:05:00 EDT, 11/25/21 22:05:00 EDT Sodium Chloride 0.9% intravenous solution, 1,000 mL, Soln-IV, IV, Once, Stop date 11/25/21 22:06:00 EDT, STAT, Start date 11/25/21 22:06:00 EDT, mL/hr, Infuse over 61, minute(s) Medications Administered Given diphenhydrAMINE 50 mg/mL Inj, 25 mg, IV Push ketorolac 15 mg/mL Inj, 15 mg, IV Push metoclopramide 5 mg/mL Inj, 10 mg, IV Push [id number] [F], 1000 mL, IV Disposition Plan Discharge Prescription List Prescriptions No active prescription medications Follow-up With When Contact Information OK TYSON In [address], [address] [place] [address]- Business (1) Additional Instructions: Patient Education Migraine Headache Problem List/Past Medical History Ongoing Smoker Historical Celiac disease Migraine Procedure/Surgical History Colonoscopy, Esophagogastroduoden oscopy. Medications Inpatient diphenhydrAMINE 50 mg/mL Inj, 25 mg= 0.5 mL, IV Push, Once ketorolac 15 mg/mL Inj, 15 mg= 1 mL, IV Push, Once metoclopramide 5 mg/mL Inj, 10 mg= 2 mL, IV Push, Once NS 1000 ml Bolus, 1000 mL, IV, Once Home Vistaril 25 mg Cap, 1-2 cap(s), Oral, QID, PRN Allergies No Known Allergies Social History Alcohol - Denies Alcohol Use, 01/14/2021 Current, 1-2 times per month, 11/25/2021 Substance Abuse - Denies Substance Abuse, 01/14/2021 Tobacco - Denies Tobacco Use, 01/14/2021 Vaping, 11/25/2021 Never (less than 100 in lifetime) Tobacco Use:., 01/14/2021 Lab Results No qualifying data available. Diagnostic Results No qualifying data available. [facility] Comment on above: Result Comment: Elec tronically Signed By: Rayray Aquino DO\.br\Date and Time Signed: 11/25/21 23:32 EDT ED Patient Education Noteon 11-26-2021 ED Patient Education Note Neurology Migraine Headache A migraine headache is an intense, throbbing pain on one side or both sides of the head. Migraine headaches may also cause other symptoms, such as nausea, vomiting, and sensitivity to light and noise. A migraine headache can last from 4 hours to 3 days. Talk with your doctor about what things may bring on (trigger) your migraine headaches. What are the causes? The exact cause of this condition is not known. However, a migraine may be caused when nerves in the brain become irritated and release chemicals that cause inflammation of blood vessels. This inflammation causes pain. This condition may be triggered or caused by: ? Drinking alcohol. ? Smoking. ? Taking medicines, such as: ? Medicine used to treat chest pain (nitroglycerin). ? control pills. ? Estrogen. ? Certain blood pressure medicines. ? Eating or drinking products that contain nitrates, glutamate, aspartame, or tyramine. Aged cheeses, chocolate, or caffeine may also be triggers. ? Doing physical activity. Other things that may trigger a migraine headache include: ? Menstruation. ? . ? Hunger. ? Stress. ? Lack of sleep or too much sleep. ? Weather changes. ? Fatigue. What increases the risk? The following factors may make you more likely to experience migraine headaches: ? Being a certain age. This condition is more common in people who are 25?55 years old. ? Being female. ? Having a family history of migraine headaches. ? Being . ? Having a mental health condition, such as depression or anxiety. ? Being obese. What are the signs or symptoms? The main symptom of this condition is pulsating or throbbing pain. This pain may: ? Happen in any area of the head, such as on one side or both sides. ? Interfere with daily activities. ? Get worse with physical activity. ? Get worse with exposure to bright lights or loud noises. Other symptoms may include: ? Nausea. ? Vomiting. ? Dizziness. ? General sensitivity to bright lights, loud noises, or smells. Before you get a migraine headache, you may get warning signs (an aura). An aura may include: ? Seeing flashing lights or having blind spots. ? Seeing bright spots, halos, or zigzag lines. ? Having tunnel vision or blurred vision. ? Having numbness or a tingling feeling. ? Having trouble talking. ? Having muscle weakness. Some people have symptoms after a migraine headache (postdromal phase), such as: ? Feeling tired. ? Difficulty concentrating. How is this diagnosed? A migraine headache can be diagnosed based on: ? Your symptoms. ? A physical exam. ? Tests, such as: ? CT scan or an MRI of the head. These imaging tests can help rule out other causes of headaches. ? Taking fluid from the spine (lumbar puncture) and analyzing it (cerebrospinal fluid analysis, or CSF analysis). How is this treated? This condition may be treated with medicines that: ? Relieve pain. ? Relieve nausea. ? Prevent migraine headaches. Treatment for this condition may also include: ? Acupuncture. ? Lifestyle changes like avoiding foods that trigger migraine headaches. ? Biofeedback. ? Cognitive behavioral therapy. Follow these instructions at home: Medicines ? Take vyhx-mdu-fvxpujz and prescription medicines only as told by your health care provider. ? Ask your health care provider if the medicine prescribed to you: ? Requires you to avoid driving or using heavy machinery. ? Can cause constipation. You may need to take these actions to prevent or treat constipation: ? Drink enough fluid to keep your urine pale yellow. ? Take hema-buc-spbgmer or prescription medicines. ? Eat foods that are high in fiber, such as beans, whole grains, and fresh fruits and vegetables. ? Limit foods that are high in fat and processed sugars, such as fried or sweet foods. Lifestyle ? Do not drink alcohol. ? Do not use any products that contain nicotine or tobacco, such as cigarettes, e-cigarettes, and chewing tobacco. If you need help quitting, ask your health care provider. ? Get at least 8 hours of sleep every night. ? Find ways to manage stress, such as meditation, deep breathing, or yoga. General instructions ? Keep a journal to find out what may trigger your migraine headaches. For example, write down: ? What you eat and drink. ? How much sleep you get. ? Any change to your diet or medicines. ? If you have a migraine headache: ? Avoid things that make your symptoms worse, such as bright lights. ? It may help to lie down in a dark, quiet room. ? Do not drive or use heavy machinery. ? Ask your health care provider what activities are safe for you while you are experiencing symptoms. ? Keep all follow-up visits as told by your health care provider. This is important. Contact a health care provider if: ? You develop symptoms that are different or (more content not included)... [facility] ED Patient Summaryon 022 ED Patient Summary [address] [address] Patient Discharge Instructions Person Information Name: SHIV EVANGELISTA Age: 21 Years Arrival Date: 11/25/2021 18:57:45 Discharge Diagnosis: Migraine headache Primary Care Physician: OK TYSON DO Provider Information Primary Provider: Rayray Aquino DO Advanced Construction Representative:None The exam and treatment you received in the Emergency Department were for an urgent problem and are not intended as complete care. It is important that you follow up with a doctor, nurse practitioner, or physician?s quality assistant for ongoing care. If your symptoms become worse or you do not improve as expected and you are unable to reach your usual health care provider, you should return to the Emergency Department. We are available 24 hours a day. SHIV EVANGELISTA has been given the following list of patient education materials, prescriptions and follow-up instructions: Follow-up Instructions: With: Address: When: [address], [address] [address] Business (1) In 3 days In the event that this physician does not participate in your insurance network, please consult with your insurance company to find a nearby participating provider. Patient Education Materials: Migraine Headache A MESSAGE TO ALL PATIENTS REGARDING OPIOIDS PRESCRIPTION OPIOIDS: WHAT YOU NEED TO KNOW Prescription opioids can be used to help relieve kpvfsrra-sa-njhijr pain and are often prescribed following a surgery or injury, or for certain health conditions. These medications can be an important part of the treatment but also come with serious risks. It is important to work with your healthcare provider to make sure you are getting the safest, most effective care. WHAT ARE THE RISKS AND SIDE EFFECTS OF OPIOID USE? Prescription opioids carry serious risks of addiction and overdose, especially with prolonged use. An opioid overdose, often marked by slowed breathing, can cause sudden . The use of prescription opioids can have a number of side effects as well, even when taken as directed: ? Tolerance?meaning you might need to take more of the medication for the same pain relief ? Physical dependence?meaning you have symptoms of withdrawal when a medication is stopped ? Increased sensitivity to pain ? Constipation ? Nausea, vomiting, and dry mouth ? Sleepiness and dizziness ? Confusion ? Depression ? Low levels of testosterone that can result in lower sex drive, energy, and strength ? Itching and sweating RISKS ARE GREATER WITH: ? History of drug misuse, substance use disorder, or overdose ? Mental health conditions (such as depression or anxiety) ? Sleep apnea ? Older age (65 years and older) ? Avoid alcohol while taking prescription opioids. Also, unless specifically advised by your health care provider, medications to avoid include: ? Benzodiazepines (such as Xanax or Valium) ? Muscle relaxants (such as Soma or Flexeril) ? Hypnotics (such as Ambien or Lunesta) ? Other prescription opioids KNOW YOUR OPTIONS Talk to your health care provider about ways to manage your pain that don?t involve prescription opioids. Some of these options may actually work better and have fewer risks and side effects. Options may include: ? Pain relievers such as acetaminophen, ibuprofen, and naproxen ? Some medication that are also used for depression or seizures ? Physical therapy and exercise ? Cognitive behavioral therapy, a psychological, goal-directed approach, in which patients learn how to modify physical, behavioral, and emotional triggers of pain and stress. IF YOU ARE PRESCRIBED OPIOIDS FOR PAIN: ? Never take opioids in greater amounts or more often than prescribed. ? Follow up with your primary health care provider. o Work together to create a plan on how to manage your pain. o Talk about ways to help manage your pain that don?t involve prescription opioids. o Talk about any and all concerns and side effects. ? Help prevent misuse and abuse o Never sell or share prescription opioids. o Never use another person?s prescription opioids. ? Store prescription opioids in a secure place and out of reach of others (this may include visitors, children, friends, and family). ? Safely dispose of unused prescription opioids: Find your community drug take-back program or your pharmacy mail-back program, or flush them down the toilet, following guidance from the Food and Drug Administration (www.fda.gov/Drugs/R esourcesForYou). ? Visit www.cdc.gov/drugover dose to learn about the risks of opioids abuse and overdose. ? If you believe you may be struggling with addiction, tell your health child care center assistant director and ask for guidance or call [facility]?S National Helpline at 7-022-625-Silvigen. .[employer] Source: Department of Health and Human (more content not included)... [facility] Progress Note-Nurseon 2021 Progress Note-Nurse Pt. brought back to ed bed 13 [facility] Progress Note-Nurse Pt. states her headache is completely gone and she is ready to go home. [facility] Consent for Treatmenton 11-10 Consent for Treatment [id number] 21 [id number] #1.00CD:127 [facility] Urine culture routineOrdered By: Ok Tyson on 10-11-2021 Bacteria identified Cx Nom (U) Klebsiella pneumoniae [facility] Automated epithelial cells c ount in urine sediment (number/area)Ordered By: Ok Tyson on 10-09-2021 Epithelial cells Auto (Urine sed) [#/Area] 20-49 [HPF] 0-2 [facility] Automated erythrocytes count in urine sediment (number/area)Ordered By: Ok Tyson on 10-09-2021 RBC Auto (Urine sed) [#/Area] None seen [HPF] 0-4 [facility] Automated leukocytes count i n urine sediment (number/area)Ordered By: Ok Tyson on 10-09-2021 WBC Auto (Urine sed) [#/Area] 1-2 [HPF] 0-4 [facility] Automated urine hyaline cast s count (number/volume)Ordered By: Ok Tyson on 10-09-2021 Hyaline casts Auto (U) [#/Vol] None seen [LPF] 0-1 [facility] Bilirubin Test strip Ql (U)O rdered By: Ok Tyson on 10-09-2021 Bilirubin Ql (U) Negative Negative [facility] Color Auto (U)Ordered By: Anna Tyson on 10-09-2021 Color (U) Yellow Yellow [facility] Ketones Auto test strip (U) [Mass/Vol]Ordered By: Ok Tyson on 10-09-2021 Ketones (U) [Mass/Vol] Negative Negative [facility] Nitrite Test strip Ql (U)Ord ered By: Ok Tyson on 10-09-2021 Nitrite Ql (U) Negative Negative [facility] Protein Auto test strip (U) [Mass/Vol]Ordered By: Ok Tyson on 10-09-2021 Protein (U) [Mass/Vol] Negative Negative [facility] Specific gravity Auto test s trip (U) [Rel density]Ordered By: Ok Tyson on 10-09-2021 Specific gravity (U) [Rel density] 1.005 1.001-1.030 [facility] Urine bacteria detection by automated methodOrdered By: Ok Tyson on 10-09-2021 Bacteria Auto Ql (U) 3+ None Seen [facility] Urine clarity by refractomet ry automatedOrdered By: Ok Tyson on 10-09-2021 Clarity Refractometry automated (U) Clear Clear [facility] Urine glucose measurement by automated test strip (mass/volume)Ordered By: Ok Tyson on 10-09-2021 Glucose Auto test strip (U) [Mass/Vol] Normal mg/dL Normal [facility] Urine hemoglobin detection b y automated test stripOrdered By: Ok Tyson on 10-09-2021 Hemoglobin Auto test strip Ql (U) Negative Negative [facility] Urine leukocyte esterase det ection by automated test stripOrdered By: Ok Tyson on 10-09-2021 Leukocyte esterase Auto test strip Ql (U) 2+ Negative [facility] Urobilinogen Auto test strip (U) [Mass/Vol]Ordered By: Ok Tyson on 10-09-2021 Urobilinogen (U) [Mass/Vol] Normal mg/dL Normal [facility] pH Auto test strip (U)Ordere d By: Ok Tyson on 10-09-2021 pH (U) 7.0 [pH] 5.0-9.0 [facility] Albumin [Mass/volume] in Ser um or PlasmaOrdered By: Ok Tyson on 09-13-2021 Albumin [Mass/Vol] 4.5 g/dL 3.2-5.5 [facility] Creatinine and Glomerular fi ltration rate.predicted panel (S/P/Bld)Ordered By: Ok Tyson on 09-13-2021 Creatinine [Mass/Vol] 0.71 mg/dL 0.44-1.03 [facility] Estimated glomerular filtrat ion rate (GFR) non- AmericanOrdered By: Ok Tyson on 09-13-2021 GFR/1.73 sq M.predicted among non-blacks MDRD (S/P/Bld) [Vol rate/Area] > 60 mL/Min [facility] Globulin Calc (S) [Mass/Vol] Ordered By: Ok Tyson on 09-13-2021 Globulin (S) [Mass/Vol] 2.5 g/dL [facility] No Panel InformationOrdered By: Ok Tyson on 09-13-2021 Estimated GFR () > 60 mL/Min [facility] Comment on above: GFR estimated refere nce range: According to KDOQI guidelines, <60 ml/min/1.73m2 is sufficient to diagnose a patient with chronic kidney disease. Pharmacy Creatinine Clearance (Chem N/A [facility] Protein [Mass/volume] in Ser um or PlasmaOrdered By: Ok Tyson on 09-13-2021 Protein [Mass/Vol] 7.0 g/dL 6.1-7.9 [facility] Serum or plasma alanine schmid otransferase measurement without P-5'-P (enzymatic activiOrdered By: Ok Tyson on 09-13-2021 ALT No additional P-5'-P [Catalytic activity/Vol] 18 U/L 10-60 [facility] Serum or plasma albumin/glob ulin mass ratioOrdered By: Ok Tyson on 09-13-2021 Albumin/Globulin [Mass ratio] 1.8 {ratio} [facility] Serum or plasma alkaline pascale sphatase measurement (enzymatic activity/volume)Ordered By: Ok Tyson on 09-13-2021 ALP [Catalytic activity/Vol] 51 U/L 32-92 [facility] Serum or plasma aspartate am inotransferase measurement (enzymatic activity/volume)Ordered By: Ok Tyson on 09-13-2021 AST [Catalytic activity/Vol] 23 U/L 10-42 [facility] Serum or plasma calcium acosta urement (mass/volume)Ordered By: Ok Tyson on 09-13-2021 Calcium [Mass/Vol] 9.2 mg/dL 8.2-10.2 [facility] Serum or plasma chloride danis surement (moles/volume)Ordered By: Ok Tyson on 09-13-2021 Chloride [Moles/Vol] 104 mmol/L 95-114 [facility] Serum or plasma glucose acosta urement (mass/volume)Ordered By: Ok Tyson on 09-13-2021 Glucose [Mass/Vol] 82 mg/dL 70-100 [facility] Comment on above: ADA recommended refe rence range Random Glucose Reference Range is dependent on time and content of last meal. Glucose of more than 200 mg/dL in a nonstressed, ambulatory subject supports the diagnosis of Diabetes Mellitus. Serum or plasma potassium me asurement (moles/volume)Ordered By: Ok Tyson on 09-13-2021 Potassium [Moles/Vol] 3.4 mmol/L 3.5-5.1 [facility] Serum or plasma sodium measu rement (moles/volume)Ordered By: Ok Tyson on 09-13-2021 Sodium [Moles/Vol] 139 mmol/L 136-146 [facility] Serum or plasma total biliru bin measurement (mass/volume)Ordered By: Ok Tyson on 09-13-2021 Bilirubin [Mass/Vol] 0.4 mg/dL 0.3-1.2 [facility] Serum or plasma total carbon dioxide measurement (moles/volume)Ordered By: Ok Tyson on 09-13-2021 CO2 [Moles/Vol] 28.3 mmol/L 22.0-30.0 [facility] Serum or plasma urea nitroge n measurement (mass/volume)Ordered By: Ok Tyson on 09-13-2021 Urea nitrogen [Mass/Vol] 8 mg/dL 11-02 [facility] Q - Strep pneumo Ab 23 serot ypeson 06-15-2021 SEROTYPE 1 (1) 91.7 Normal [facility] Specialist Comment on above: Order Comment: [facility] performed at: [employer] [facility],, [address] [place] [address], , Gis Professor: Angela Feng MD,PhD,MANOHAR [facility] Collection Date/Time: [facility] Results Received Date/Time: [facility] Reported Date/Time: FASTING: NO Performed By: #### 1 [id number] #### [facility] [address] [place] [address] SEROTYPE 12 (12F) 3.7 Normal [facility] Comment on above: Order Comment: [facility] performed at: [employer] [facility],, [address] [place] [address], , Gis Professor: Angela Feng MD,PhD,MANOHAR [facility] Collection Date/Time: [facility] Results Received Date/Time: [facility] Reported Date/Time: FASTING: NO Performed By: #### 1 [id number] #### [facility] [address] [place] [address] SEROTYPE 14 (14) 163.4 [facility] Comment on above: Order Comment: [facility] performed at: [employer],, [address] [place] [address], , Gis Professor: Angela Feng MD,PhD,MANOHAR [facility] Collection Date/Time: [facility] Results Received Date/Time: [facility] Reported Date/Time: FASTING: NO Performed By: #### 1 [id number] #### [facility] [address] [place] [address] SEROTYPE 17 (17F) 4.6 Normal [facility] Specialist Comment on above: Order Comment: [facility] performed at: , [facility],, [address] [place] [address], , Gis Professor: Angela Feng MD,PhD,MANOHAR [facility] Collection Date/Time: [facility] Results Received Date/Time: [facility] Reported Date/Time: FASTING: NO Performed By: #### 1 [id number] #### [facility] [address] [place] [address] SEROTYPE 19 (19F) 18.2 Normal [facility] Specialist Comment on above: Order Comment: [facility] performed at: [facility], [facility] [facility],, [address] [place] [address], , Gis Professor: Angela Feng MD,PhD,MANOHAR [facility] Collection Date/Time: [facility] Results Received Date/Time: [facility] Reported Date/Time: FASTING: NO Performed By: #### 1 [id number] #### [facility] [address] [place] [address] SEROTYPE 2 (2) 4.7 Normal [facility] [employer] Merch[employer]iser Comment on above: Order Comment: [facility] performed at: [facility], [facility],, [facility] [place], [place], , Gis Professor: Angela Feng MD,PhD,MANOHAR [facility] Collection Date/Time: [facility] Results Received Date/Time: [facility] Reported Date/Time: FASTING: NO Performed By: #### 1 [id number] #### [facility] [address] [place] [address] SEROTYPE 20 (20) 3.8 Normal [facility] Comment on above: Order Comment: [facility] performed at: [facility], [employer] [facility],, [address] [place] [address], , Gis Professor: Angela Feng MD,PhD,MANOHAR [facility] Collection Date/Time: [facility] Results Received Date/Time: [facility] Reported Date/Time: FASTING: NO Performed By: #### 1 [id number] #### [facility] [address] [place] [address] SEROTYPE 22 (22F) 4.0 Normal [facility] Comment on above: Order Comment: [facility] performed at: [facility], [facility] [facility],, [address] [place] [address], , Gis Professor: Angela Feng MD,PhD,MANOHAR [facility] Collection Date/Time: [facility] Results Received Date/Time: [facility] Reported Date/Time: FASTING: NO Performed By: #### 1 [id number] #### [facility] [address] [place] [address] SEROTYPE 23 (23F) 5.7 Normal [facility] Comment on above: Order Comment: [facility] performed at: [facility], [facility] [facility],, [address] [place] [address], , Gis Professor: Angela Feng MD,PhD,MANOHAR [facility] Collection Date/Time: [facility] Results Received Date/Time: [facility] Reported Date/Time: FASTING: NO Performed By: #### 1 [id number] #### [facility] [address] [place] [address] SEROTYPE 26 (6B) 7.1 Normal [facility] Comment on above: Order Comment: [facility] performed at: [facility], [employer] [facility] [facility],, [address] [place], [place], , Gis Professor: Angela Feng MD,PhD,MANOHAR [facility] Collection Date/Time: [facility] Results Received Date/Time: [facility] Reported Date/Time: FASTING: NO Performed By: #### 1 [id number] #### [facility] [address] [place] [address] SEROTYPE 3 (3) 5.2 Normal [facility] Comment on above: Order Comment: [facility] performed at: [facility], [employer] [facility] [facility],, [facility] [place], , Gis Professor: Angela Feng MD,PhD,MANOHAR [facility] Collection Date/Time: [facility] Results Received Date/Time: [facility] Reported Date/Time: FASTING: NO Performed By: #### 1 [id number] #### [facility] [address] [place] [address] SEROTYPE 34 (10A) 20.3 Normal [facility] Comment on above: Order Comment: [facility] performed at: [facility], [employer] [facility] [facility],, [address] [place], [place], , Gis Professor: Angela Feng MD,PhD,MANOHAR [facility] Collection Date/Time: [facility] Results Received Date/Time: [facility] Reported Date/Time: FASTING: NO Performed By: #### 1 [id number] #### [facility] [address] [place] [address] SEROTYPE 4 (4) 2.2 Normal [facility] Specialist Comment on above: Order Comment: [facility] performed at: [facility], [facility] [facility],, [address] [place], [place], , Gis Professor: Angela Feng MD,PhD,MANOHAR [facility] Collection Date/Time: [facility] Results Received Date/Time: [facility] Reported Date/Time: FASTING: NO Performed By: #### 1 [id number] #### [facility] [address] [place] [address] SEROTYPE 43 (11A) 10.7 Normal [facility] Comment on above: Order Comment: [facility] performed at: [facility], [employer] [facility] [facility],, [address] [place], [place] [address], , Gis Professor: Angela Feng MD,PhD,MANOHAR [facility] Collection Date/Time: [facility] Results Received Date/Time: [facility] Reported Date/Time: FASTING: NO Performed By: #### 1 [id number] #### [facility] [address] [place] [address] SEROTYPE 5 (5) 2.5 Normal [facility] Retail Sales Merchandiser Comment on above: Order Comment: [facility] performed at: [facility], [facility] [facility],, [address] [place], [place] [address], , Gis Professor: Angela Feng MD,PhD,MANOHAR [facility] Collection Date/Time: [facility] Results Received Date/Time: [facility] Reported Date/Time: FASTING: NO Performed By: #### 1 [id number] #### [facility] [address] [place] [address] SEROTYPE 51 (7F) 4.3 Normal [facility] Comment on above: Order Comment: [facility] performed at: [facility], [facility] [facility],, [address] [place] [address], , Gis Professor: Angela Feng MD,PhD,MANOHAR [facility] Collection Date/Time: [facility] Results Received Date/Time: [facility] Reported Date/Time: FASTING: NO Performed By: #### 1 [id number] #### [facility] [address] [place] [address] SEROTYPE 54 (15B) 9.3 Normal [facility] Comment on above: Order Comment: [facility] performed at: [facility], [facility],, [address] [place] [address], , Gis Professor: Angela Feng MD,PhD,MANOHAR [facility] Collection Date/Time: [facility] Results Received Date/Time: [facility] Reported Date/Time: FASTING: NO Performed By: #### 1 [id number] #### [facility] [address] [place] [address] SEROTYPE 56 (18C) 15.2 [facility] Comment on above: Order Comment: [facility] Testing performed at: [facility], [employer] [facility],, [address] [place] [address], , Gis Professor: Angela Feng MD,PhD,MANOHAR [facility] Collection Date/Time: [facility] Results Received Date/Time: [facility] Reported Date/Time: FASTING: NO Performed By: #### 1 [id number] #### [facility] [address] [place] [address] SEROTYPE 57 (19A) 1.3 Normal [facility] Comment on above: Order Comment: [facility] performed at: [employer], [employer] [facility] [facility],, [address] [place] [address], , Gis Professor: Angela Feng MD,PhD,MANOHAR [facility] Collection Date/Time: [facility] Results Received Date/Time: [facility] Reported Date/Time: FASTING: NO Performed By: #### 1 [id number] #### [facility] [address] [place] [address] SEROTYPE 68 (9V) 2.5 [facility] Comment on above: Order Comment: [facility] performed at: [employer], [employer] [facility] [facility],, [address] [place] [address], , Gis Professor: Angela Feng MD,PhD,MANOHAR [facility] Collection Date/Time: [facility] Results Received Date/Time: [facility] Reported Date/Time: FASTING: NO Performed By: #### 1 [id number] #### [facility] [address] [place] [address] SEROTYPE 70 (33F) 2.5 [facility] Comment on above: Order Comment: [facility] Testing performed at: [employer], [employer] [facility] [facility],, [address] [place] [address], , Gis Professor: Angela Feng MD,PhD,MANOHAR [facility] Collection Date/Time: [facility] Results Received Date/Time: [facility] Reported Date/Time: FASTING: NO Result Comment: Sero logic correlates of protection against pneumococcal disease have not been rigorously established for all patient populations. Published data and expert consensus (including WHO) suggest protection from invasive disease usually occurs at levels >or =0.3-0.50 mcg/mL for healthy children receiving pneumococcal conjugate vaccines. Higher titers may be necessary to protect from non-invasive infection (e.g., pneumonia, otitis, sinusitis). Expert opinion suggests that a cut-off of >= 1.3 mcg/mL may be a more relevant value to assess antibody responses after pneumococcal polysaccharide vaccines or for immunocompromised patients. In addition to antibody quantity, protection also depends on antibody avidity and opsonophagocytic activity. Some experts consider that post-vaccination (4-6 weeks) IgG seroconversion and/or 2- to 4-fold rise in IgG titers for >50% to 70% of vaccine serotypes demonstrates a normal post-vaccine serologic response. Persons with high initial serotype-specific titers may have less robust responses. [facility] uses a multi-analyte immunodetection (MAID) method. The method employs the Zamzee flow cytometric system which measures multiple analytes simultaneously. The FDA standard reference serum 89-S is used as the calibration standard. Results are reported in mcg/mL. This assay detects all of the 23 of the serotypes in the 23-valent polysaccharide vaccine and 12 of the 13 serotypes in the 13-valent conjugate vaccine. This test was developed and its analytical performance characteristics have been determined by [facility]. It has not been cleared or approved by FDA. This assay has been validated pursuant to the CLIA regulations and used for clinical purposes. For additional information, please refer to http://education.[employer]/faq/QHY623 (This link is being provided for informational/ educational purposes only.) Performed By: #### 1 [id number] #### [facility] [address] [place] [address] SEROTYPE 8 (8) 9.8 Normal [facility] Retail Sales Merchandiser Comment on above: Order Comment: [facility] performed at: [employer], [employer] [facility],, [address] [place], [address], Gis Professor: Angela Feng MD,PhD,MANOHAR [facility] Collection Date/Time: [id number] [facility] Results Received Date/Time: [facility] Reported Date/Time: FASTING: NO Performed By: #### 1 [id number] #### [facility] Default [address] [place] [address] SEROTYPE 9 (9N) 2.8 Normal [facility] Retail Sales Merchandiser Comment on above: Order Comment: [facility] Testing performed at: [employer], [employer] [facility] [facility],, [address] [place], [address], Gis Professor: Angela Feng MD,PhD,MANOHAR [facility] Collection Date/Time: [facility] Results Received Date/Time: [facility] Reported Date/Time: FASTING: NO Performed By: #### 1 [id number] #### [facility] Default [address] [place] [address] Office Visit (Pediatric Neur ology)on 05-30-2021 Follow-up visit Diagnoses/Problems Migraine (346.90) (G43.909) Anxiety (300.00) (F41.9) POTS (postural orthostatic tachycardia syndrome) (427.89) (I49.8) Patient Discussion/Summary You are doing better to some degree with the amount of things that you manage. Headaches may have had a mild improvement. Dizziness is still there but again may be slightly better. I have talked with you about the followin. Head MRI was normal. 2. Continue to watch headache frequency with the Aimovig. 3. Continue with the current Midodrine dose for another 1-2 weeks then call. will discuss the option of an incraese at that. 4. Continue with Prozac for now. 5. Continue to work on anxiety management strategies. 6. Can use cocktail to break headache once they occur. 7. Call with updates. My nurse is Yolanda Calvillo at [phone]. 8. Follow up in 2-3 months with updates in the interim. Chief Complaint Patient here for follow up migraines. Accompanied by mother. History of Present Illness Shiv is a 21 year old young woman with POTS, anxiety and headaches. She was seen last in March. At that time, headaches had increased. She was changed to Aimovig. Since the change to AImovig, she has not had a change in frequency but better in severity. She feels that they are secondary to final coming up. 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 She has 18 months left. Mood has been all over the place and has been like that through the school year. Her psychiatrist has her on Prozac, 40 mg daily without much change in mood. No thoughts of self harm She increased the dose 6 weeks ago. 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 She will be at [employer]. She has also been diagnosed IGA deficiency, celiac and fructose intolerance. She denies any other autoimmune issues. She has another rheumatology appt at the end of the month. She just got the pneumonia vaccine. Sleep: Hydroxyzine helps but causes hangover sleepiness. She does not like the way that she feels when taking it. Weight is 107 down from 123. Mood is better than it was 2 months ago. Panic attacks are there but manageable with all the changes--new job, new apartment, academics. Dizziness is still there, maybe slightly better, Midodrine was started and she just started on 5 mg TID. Review of Systems A review of systems finds no other pertinent positives. Active Problems Anxiety (300.00) (F41.9) Chest pain, midsternal (786.51) (R07.89) Migraine (346.90) (G43.909) Mood swings (799.24) (R45.86) POTS (postural orthostatic tachycardia syndrome) (427.89) (I49.8) Syncope (780.2) (R55) Urinary tract infection, bacterial (599.0,041.9) (N39.0,A49.9) Family History Family history of migraine headaches (V17.2) (Z82.0) Family history of syncope (V19.8) (Z84.89) Family history of syncope (V19.8) (Z84.89) Social History Feels safe at home Has smoke detectors Lives with parents () Non-smoker (V49.89) (Z78.9) Older siblings Allergies No Known Drug Allergies Recorded By: Mary Ellen Land; 06/27/2016 1:49:25 PM Current Meds Medication NameInstruction Adapalene-Benzoyl Peroxide 0.1-2.5 % External Gel Aimovig 70 MG/ML Subcutaneous Solution Auto-injectorADMINIS TER 1 ML UNDER THE SKIN 1 TIME MONTHLY Albuterol Sulfate HFA 108 (90 Base) MCG/ACT Inhalation Aerosol SolutionINHALE 2 PUFFS BY MOUTH EVERY 4 HOURS NEEDED Cefdinir 300 MG Oral CapsuleTAKE 2 CAPSULES DAILY. clonazePAM 0.5 MG Oral TabletTAKE 1/2-1 TABLET BY MOUTH 3 TIMES A DAY NEEDED FOR ANXIETY Doxycycline Hyclate 100 MG Oral Capsule Emgality 120 MG/ML Subcutaneous Solution Auto-injectorStart 240mg SC x 1 then 120mg SC q monthly FLUoxetine HCl - 10 MG Oral CapsuleTAKE ONE CAPSULE BY MOUTH ONE TIME DAILY FLUoxetine HCl - 20 MG Oral CapsuleTAKE 1 CAPSULE BY MOUTH EVERY DAY FLUoxetine HCl - 20 MG Oral TabletTAKE 1 AND 1/2 TABLETS BY MOUTH DAILY hydrOXYzine HCl - 25 MG Oral TabletTAKE 1 TABLET BY MOUTH NEEDED FOR ANXIETY hydrOXYzine Pamoate 25 MG Oral CapsuleTAKE 1 TO 2 CAPSULES BY MOUTH DIRECTED NEEDED FOR ANXIETY Hyoscyamine Sulfate 0.125 MG Sublingual Tablet Sublingual Ketorolac Tromethamine 10 MG Oral Tablettake 1 tablet at headache onset may repeat once in 6 hours if needed. Linzess 145 MCG Oral Capsule Linzess 290 MCG Oral Capsule LORazepam 0.5 MG Oral TabletTAKE 1 TABLET NEEDED BY MOUTH FOR ANXIETY Midodrine HCl - 5 MG Oral TabletTAKE 1 TABLET 3 TIMES DAILY. Josie 0.25-35 MG-MCG Oral TabletTAKE 3 TABS DAILY FOR 3 DAYS, 2 TABS DAILY FOR 2 DAYS, THEN 1 TABLET DAILY THEREAFTER Minocycline HCl - 100 MG Oral Capsule Omeprazole 40 MG Oral Capsule Delayed ReleaseTAKE 1 CAPSULE BY MOUTH EVERY DAY 30 MINUTES BEFORE MORNING MEAL FOR 30 DAYS Ondansetron HCl - 4 MG Oral Tablettake 1 tablet by mouth AT ONSET OF HEADACHE Trulance 3 MG Oral Tablet Verapamil HCl - 40 MG Oral TabletTAKE 1 TABLET 3 times daily Zelnorm 6 MG Oral Tablet Vitals V (more content not included)... Normal [facility] CHEMISTRYOrdered By: SYSTEM SYSTEM on 05-17-2021 Anion gap [Moles/Vol] 11 mmol/L Normal 6 - 16 mEq/L [facility] Calcium [Mass/Vol] 9.3 mg/dL Normal 8.9 - 11. 1 mg/dL [facility] Chloride [Moles/Vol] 103 mmol/L Normal 101 - 1 11 mmol/L [facility] CO2 [Moles/Vol] 27 mmol/L Normal 21 - 31 mmol/L [facility] Creatinine [Mass/Vol] 0.8 mg/dL Normal 0.5 - 1.3 mg/dL [facility] GFR/1.73 sq M.predicted among blacks MDRD (S/P/Bld) [Vol rate/Area] mL/min/1.73 m2 Normal >=59mL/min/ 1.73 m2 [facility] Chem S GFR/1.73 sq M.predicted among non-blacks MDRD (S/P/Bld) [Vol rate/Area] mL/min/1.73 m2 Normal >=59mL/min/ 1.73 m2 [facility] S Glucose [Mass/Vol] 152 mg/dL Normal 55 - 199 mg/dL [facility] Potassium [Moles/Vol] 3.3 mmol/L Low 3.5 - 5.3 mmol/L [facility] Sodium [Moles/Vol] 138 mmol/L Normal 135 - 145 mmol/L [facility] Urea nitrogen [Mass/Vol] 9 mg/dL Normal 5 - 21 mg/dL [facility] Urea nitrogen/Creatinine [Mass ratio] 11 mg/mg Normal 10 - 20 [facility] HEMATOLOGYOrdered By: SYSTEM SYSTEM on 05-17-2021 Basophils/100 WBC (Bld) 0.6 % Normal 0.0 - 2.0 % [facility] Basophils/Leukocytes Auto (Bld) [Pure # fraction] 0.0 E9/L Normal 0.0 - 0.2 E9/L [facility] Eosinophils/100 WBC (Bld) 2.1 % Normal 0.0 - 8.0 % [facility] Eosinophils/Leukocytes Auto (Bld) [Pure # fraction] 0.1 E9/L Normal 0.0 - 0.5 E9/L [facility] Lymphocytes/100 WBC (Bld) 33.5 % Normal 14.0 - 50.0 % [facility] Lymphocytes/Leukocytes Auto (Bld) [Pure # fraction] 2.0 E9/L Normal 1.0 - 4.0 E9/L [facility] Monocytes/100 WBC (Bld) 7.8 % Normal 4.0 - 14.0 % [facility] Monocytes/Leukocytes Auto (Bld) [Pure # fraction] 0.5 E9/L Normal 0.2 - 1.0 E9/L [facility] Neutrophils/100 WBC (Bld) 56.0 % Normal 36.0 - 75.0 % [facility] Neutrophils/Leukocytes Auto (Bld) [Pure # fraction] 3.4 E9/L Normal 2.0 - 7.5 E9/L [facility] HEMATOLOGYOrdered By: Laury Alexandra on 05-17-2021 Erythrocyte distribution width (RBC) [Ratio] 13.0 % Normal 10.9 - 14.2 % [facility] Hematocrit (Bld) [Volume fraction] 36.6 % Normal 34.0 - 46.0 % [facility] Hemoglobin (Bld) [Mass/Vol] 12.3 g/dL Normal 12.0 - 16.0 gm/dL [facility] MCH (RBC) [Entitic mass] 30.2 pg Normal 27.0 - 34.0 pg [facility] MCHC (RBC) [Mass/Vol] 33.6 g/dL Normal 31.4 - 36.0 gm/dL [facility] MCV (RBC) [Entitic vol] 90.0 fL Normal 80.0 - 100.0 fL [facility] Platelet mean volume (Bld) [Entitic vol] 8.2 fL Normal 6.4 - 10.8 fL [facility] Platelets (Bld) [#/Vol] 241.0 E9/L Normal 150. 0 - 500.0 E9/L [facility] RBC (Bld) [#/Vol] 4.1 E12/L Low 4.3 - 5.9 E12/L [facility] WBC corrected for nucl RBC Auto (Bld) [#/Vol] 6.1 E9/L Normal 4.0 - 11.0 E9/L [facility] SEROLOGYOrdered By: Genevieve Rodriguez lps on 05-17-2021 HCG.beta subunit (U) [Moles/Vol] Negative Normal [facility] URINALYSISOrdered By: Genevieve collins on 05-17-2021 Bilirubin Ql (U) Negative (05/17/21 9:31 PM) Normal Negative [facility] UA Auto SS Clarity (U) SL CLOUDY Invalid Interpretation Code [facility]A Auto SS Color (U) Red *ABN* (05/17/21 9:31 PM) Invalid Interpretation Code Yellow [facility] UA Auto SS Epithelial cells.squamous LM.HPF (Urine sed) [#/Area] 3-4 /HPF Normal 0-2/HPF [facility] UA Aut o SS Glucose Test strip (U) [Mass/Vol] Negative (05/17/21 9:31 PM) Normal Negative [facility] UA Auto SS Hemoglobin Ql (U) 3+ *ABN* (05/17/21 9:31 PM) Invalid Interpretation Code Negative [facility] UA Auto SS Ketones (U) [Mass/Vol] Negative (05/17/21 9:31 PM) Normal Negative [facility] UA Auto SS [place].plasma/[place]. RBC (Bld) [Mass ratio] >75 /HPF Invalid Interpretation Code 0-3/HPF [facility] UA Auto SS Nitrite Ql (U) Negative (05/17/21 9:31 PM) Normal Negative [facility] UA Auto SS pH (U) 6.0 *NA* (05/17/21 9:31 PM) Invalid Interpretation Code 5.0 - 9.0 [facility] UA Auto SS Protein (U) [Mass/Vol] 1+ *ABN* (05/17/21 9:31 PM) Invalid Interpretation Code Negative [facility] UA Auto SS Specific gravity (U) [Rel density] <=1.005 *NA* (05/17/21 9:31 PM) Invalid Interpretation Code 1.005 - 1.030 [facility] UA Auto SS UA Spec Desc Clean Catch (05/17/21 9:31 PM) Normal [facility] UA Auto SS Urobilinogen Qn (U) [id number] {Deny'U}/dL Normal 0.0 - 1.0 EU/dL [facility] UA Auto SS WBC Auto Ql (U) Negative (05/17/21 9:31 PM) Normal Negative [facility] UA Auto SS WBC LM.HPF (Urine sed) [#/Area] 0-5 /HPF Normal 0-5/HPF [facility] UA Auto SS Q - Diptheria/Tetanus Abon 0 04-13-2021 DIPHTHERIA ANTITOXOID 0.59 IU/mL Normal [facility] [employer] [employer] Comment on above: Order Comment: [facility] performed at: [facility], [facility], [address], [place], [place], , Gis Professor: Gurmeet Rabago M.D.,PhD [facility] Collection Date/Time: [facility] Results Received Date/Time: [facility] Reported Date/Time: Result Comment: Refe rence Range: 0.10 IU/mL or greater Interpretive Criteria: <0.10 IU/mL Nonprotective Antibody Level > Or = 0.10 IU/mL Protective Antibody Level Antibody levels >= 0.10 IU/mL are considered protective. After a primary series of three properly spaced diphtheria toxoid doses in adults or four doses in infants, a protective level of antitoxin (defined as > or = 0.10 IU of antitoxin/mL) is reached in more than 95% of immunized persons. This test was developed and its analytical performance characteristics have been determined by [facility] [place], [place]. It has not been cleared or approved by the U.S. Food and Drug Administration. This assay has been validated pursuant to the CLIA regulations and is used for clinical purposes. Performed By: #### 1 6963X, 24335M, 05420G, 11597Q, 46813P, 79139K, 64751 #### [facility] [address] [place] [address] TETANUS ANTITOXOID 0.71 IU/mL Normal [facility] [employer] Merch[employer] Comment on above: Order Comment: [facility] performed at: [facility], [facility], [address], [place], [place], , Gis Professor: Gurmeet Rabago M.D.,PhD [facility] Collection Date/Time: [facility] Results Received Date/Time: [facility] Reported Date/Time: Result Comment: Refe rence range (Healthy Immunized): 0.10 IU/mL or greater Antibody levels of >= 0.10 IU/mL are considered protective. However, tetanus can still occur in some individuals with such antibody levels. These results should not be used to determine the necessity to administer antitoxin when clinically indicated. This test was developed and its analytical performance characteristics have been determined by [facility] [place]. It has not been cleared or approved by the U.S. Food and Drug Administration. This assay has been validated pursuant to the CLIA regulations and is used for clinical purposes. Performed By: #### 1 6963X, 29571V, 51211Q, 11241J, 28752Y, 29736H, 95567 #### [facility] [address] [place] [address] Q - HIV AB, HIV 1/2, EIAon 0 04-13-2021 HIV AG/AB, 4TH GEN Non-Reactive Normal NON-REACT IV E [facility] Comment on above: Order Comment: [facility] performed at: [employer], [facility], [address] [place] [address], [address] [place] [address], [phone], Gis Professor: David Mancilla MD [facility] Collection Date/Time: [facility] Results Received Date/Time: [facility] Reported Date/Time: Result Comment: HIV- 1 antigen and HIV-1/HIV-2 antibodies were not detected. There is no laboratory evidence of HIV infection. PLEASE NOTE: This information has been disclosed to you from records whose confidentiality may be protected by state law. If your state requires such protection, then the state law prohibits you from making any further disclosure of the information without the specific written consent of the person to whom it pertains, or as otherwise permitted by law. A general authorization for the release of medical or other information is NOT sufficient for this purpose. For additional information please refer to http://education.[employer]/faq/KGB796 (This link is being provided for informational/ educational purposes only.) The performance of this assay has not been clinically validated in patients less than 2 years old. Performed By: #### 1 6963X, 23103W, 52470F, 47572I, 90048E, 75202Y, 16220 #### [facility] [address] [place] [address] Q - IGA,SERUMon 04-13-2021 IMMUNOGLOBULIN A 58 mg/dL Normal 47-310 [facility] Specialist Comment on above: Order Comment: [facility] performed at: [employer], [facility], [address] , [address] [place] [address], [address] [place] [address], Gis Professor: David Mancilla MD [facility] Collection Date/Time: [facility] Results Received Date/Time: [facility] Reported Date/Time: Performed By: #### 1 6963X, 83479R, 17382N, 24910N, 25671F, 21945Y, 05114 #### [facility] [address] [place] [address] Q - IGE,SERUMon 04-13-2021 IMMUNOGLOBULIN E 7 kU/L Normal [facility] Specialist Comment on above: Order Comment: [facility] performed at: [employer], [facility], [address] [facility], [address] [place] [address], [address] [place] [address], Gis Professor: David Mancilla MD [facility] Collection Date/Time: [facility] Results Received Date/Time: [facility] Reported Date/Time: Performed By: #### 1 6963X, 51056I, 92364X, 83407O, 33297M, 44259K, 09998 #### [facility] [address] [place] [address] Q - IGG,SERUMon 04-13-2021 IMMUNOGLOBULIN G 912 mg/dL Normal 600-1640 [facility] Retail Sales Merchandiser Comment on above: Order Comment: [facility] Testing performed at: [facility] [facility], [address] [facility], [address] [place] [address], [address] [place] [address], Gis Professor: David Mancilla MD [facility] Collection Date/Time: [facility] Results Received Date/Time: [facility] Reported Date/Time: Performed By: #### 1 6963X, 61364J, 97703Z, 18996L, 79027G, 16728O, 03874 #### [facility] [address] [place] [address] Q - IGM,SERUMon 04-13-2021 IMMUNOGLOBULIN M 73 mg/dL Normal 50-300 [facility] Specialist Comment on above: Order Comment: [facility] performed at: [facility], [facility], [address], [address], [place], [address], Gis Professor: David Mancilla MD [facility] Collection Date/Time: [facility] Results Received Date/Time: [facility] Reported Date/Time: Performed By: #### 1 6963X, 89047T, 59137K, 20161I, 88300X, 86366J, 00315 #### [facility] [address] [place] [address] Q - Strep pneumo Ab 23 serot ypeson 04-13-2021 SEROTYPE 1 (1) 0.8 Normal [facility] Specialist Comment on above: Order Comment: [facility] performed at: [facility], [facility],, [address] [place], [place], , Gis Professor: Angela Feng MD,PhD,MANOHAR [facility] Collection Date/Time: [facility] Results Received Date/Time: [facility] Reported Date/Time: Performed By: #### 1 6963X, 88428R, 81720X, 97054N, 66656J, 58688I, 27842 #### [facility] [address] [place] [address] SEROTYPE 12 (12F) <0.3 Normal [facility] Comment on above: Order Comment: [facility] performed at: [facility], [facility],, [address] [place], [place], , Gis Professor: Angela Feng MD,PhD,MANOHAR [facility] Collection Date/Time: [facility] Results Received Date/Time: [facility] Reported Date/Time: Performed By: #### 1 6963X, 96155A, 75655L, 10814G, 36667E, 58115X, 71100 #### [facility] [address] [place] [address] SEROTYPE 14 (14) 1.1 Normal [facility] Comment on above: Order Comment: [facility] performed at: [facility], [facility],, [address] [place], [place], , Gis Professor: Angela Feng MD,PhD,MANOHAR [facility] Collection Date/Time: [facility] Results Received Date/Time: [facility] Reported Date/Time: Performed By: #### 1 6963X, 83422V, 42511X, 52450J, 37654J, 74059N, 90751 #### [facility] [address] [place] [address] SEROTYPE 17 (17F) 1.9 Normal [facility] Comment on above: Order Comment: [facility] performed at: [facility], [facility],, [address] [place] [address], , Gis Professor: Angela Feng MD,PhD,MANOHAR [facility] Collection Date/Time: [facility] Results Received Date/Time: [facility] Reported Date/Time: Performed By: #### 1 6963X, 28253V, 74006Q, 21754U, 07170U, 00044P, 65759 #### [facility] [address] [place] [address] SEROTYPE 19 (19F) 2.3 Normal [facility] Comment on above: Order Comment: [facility] performed at: [facility], [facility],, [address] [place], [place], , Gis Professor: Angela Feng MD,PhD,MANOHAR [facility] Collection Date/Time: [facility] Results Received Date/Time: [facility] Reported Date/Time: Performed By: #### 1 6963X, 51050T, 99127U, 58811H, 41569O, 94075S, 05305 #### [facility] [address] [place] [address] SEROTYPE 2 (2) <0.3 Normal [facility] Specialist Comment on above: Order Comment: [facility] performed at: [facility], [facility],, [address] [place] [address], , Gis Professor: Angela Feng MD,PhD,MANOHAR [facility] Collection Date/Time: [facility] Results Received Date/Time: [facility] Reported Date/Time: Performed By: #### 1 6963X, 32632A, 12196E, 31877S, 09742L, 41295P, 66291 #### [facility] [address] [place] [address] SEROTYPE 20 (20) 1.0 Normal [facility] Comment on above: Order Comment: [facility] performed at: [facility], [facility],, [address] [place] [address], , Gis Professor: Angela Feng MD,PhD,MANOHAR [facility] Collection Date/Time: [facility] Results Received Date/Time: [facility] Reported Date/Time: Performed By: #### 1 6963X, 44363G, 59281B, 06325A, 17782Q, 96566Z, 12215 #### [facility] [address] [place] [address] SEROTYPE 22 (22F) <0.3 Normal [facility] Comment on above: Order Comment: [facility] performed at: [facility], [facility],, [address] [place] [address], , Gis Professor: Angela Feng MD,PhD,MANOHAR [facility] Collection Date/Time: [facility] Results Received Date/Time: [facility] Reported Date/Time: Performed By: #### 1 6963X, 39400C, 89198N, 02573V, 38517C, 07522O, 66915 #### [facility] [address] [place] [address] SEROTYPE 23 (23F) 3.6 Normal [facility] Comment on above: Order Comment: [facility] performed at: [employer], [facility],, [address] [place] [address], , Gis Professor: Angela Feng MD,PhD,MANOHAR [facility] Collection Date/Time: [facility] Results Received Date/Time: [facility] Reported Date/Time: Performed By: #### 1 6963X, 91243S, 48057B, 66575B, 83737Z, 58445F, 37422 #### [facility] [address] [place] [address] SEROTYPE 26 (6B) 4.5 Normal [facility] Comment on above: Order Comment: [facility] performed at: [employer] [facility],, [address] [place] [address], , Gis Professor: Angela Feng MD,PhD,MANOHAR [facility] Collection Date/Time: [facility] Results Received Date/Time: [facility] Reported Date/Time: Performed By: #### 1 6963X, 06182Q, 96789G, 83313B, 89876P, 40454Z, 24247 #### [facility] [address] [place] [address] SEROTYPE 3 (3) 1.7 Normal [facility] Specialist Comment on above: Order Comment: [facility] performed at: [facility], [facility],, [address] [place] [address], , Gis Professor: Angela Feng MD,PhD,MANOHAR [facility] Collection Date/Time: [facility] Results Received Date/Time: [facility] Reported Date/Time: Performed By: #### 1 6963X, 30639C, 95293T, 15463X, 13328F, 74758C, 37278 #### [facility] [address] [place] [address] SEROTYPE 34 (10A) 1.6 Normal [facility] Retail Sales Merchandiser Comment on above: Order Comment: [facility] performed at: [employer], [facility],, [address] [place] [address], , Gis Professor: Angela Feng MD,PhD,MANOHAR [facility] Collection Date/Time: [facility] Results Received Date/Time: [facility] Reported Date/Time: Performed By: #### 1 6963X, 99967U, 78925E, 62441K, 26267U, 56600D, 28472 #### [facility] [address] [place] [address] SEROTYPE 4 (4) 0.4 Normal [facility] Retail Sales Merchandiser Comment on above: Order Comment: [facility] performed at: [employer], [facility],, [address] [place], [place], , Gis Professor: Angela Feng MD,PhD,MANOHAR [facility] Collection Date/Time: [facility] Results Received Date/Time: [facility] Reported Date/Time: Performed By: #### 1 6963X, 48986X, 77855V, 42411P, 50052H, 48785S, 37163 #### [facility] [address] [place] [address] SEROTYPE 43 (11A) 0.9 Normal [facility] Comment on above: Order Comment: [facility] performed at: [facility], [facility],, [address] [place] [address], , Gis Professor: Angela Feng MD,PhD,MANOHAR [facility] Collection Date/Time: [facility] Results Received Date/Time: [facility] Reported Date/Time: Performed By: #### 1 6963X, 08908A, 76505D, 49267J, 09680L, 34160G, 33704 #### [facility] [address] [place] [address] SEROTYPE 5 (5) 0.6 Normal [facility] Specialist Comment on above: Order Comment: [facility] performed at: [facility], [facility],, [address] [place] [address], , Gis Professor: Angela Feng MD,PhD,MANOHAR [facility] Collection Date/Time: [facility] Results Received Date/Time: [facility] Reported Date/Time: Performed By: #### 1 6963X, 53389P, 45839O, 95044T, 38265T, 24429V, 20788 #### [facility] [address] [place] [address] SEROTYPE 51 (7F) 0.4 Normal [facility] Comment on above: Order Comment: [facility] performed at: [facility], [facility],, [address] [place], [place], , Gis Professor: Angela Feng MD,PhD,MANOHAR [facility] Collection Date/Time: [facility] Results Received Date/Time: [facility] Reported Date/Time: Performed By: #### 1 6963X, 18075R, 71720N, 97271X, 83812C, 24274E, 84713 #### [facility] Default [address] [place] [address] SEROTYPE 54 (15B) <0.3 Normal [facility] Comment on above: Order Comment: [facility] performed at: [facility], [facility],, [facility] [place], , Gis Professor: Angela Feng MD,PhD,MANOHAR [facility] Collection Date/Time: [facility] Results Received Date/Time: [facility] Reported Date/Time: Performed By: #### 1 6963X, 23851G, 05224F, 00622Y, 39114M, 86886R, 74389 #### [facility] [address] [place] [address] SEROTYPE 56 (18C) 1.1 Normal [facility] Comment on above: Order Comment: [facility] performed at: [facility], [facility],, [address] [place], [place] [address], [place], , Gis Professor: Angela Feng MD,PhD,MANOHAR [facility] Collection Date/Time: [facility] Results Received Date/Time: [facility] Reported Date/Time: Performed By: #### 1 6963X, 37026V, 63538S, 75270H, 42008S, 88527Y, 07789 #### [facility] [address] [place] [address] SEROTYPE 57 (19A) 0.4 [facility] Comment on above: Order Comment: [facility] Testing performed at: [facility], [facility],, [address] [place], [place], , Gis Professor: Angela Feng MD,PhD,MANOHAR [facility] Collection Date/Time: [facility] Results Received Date/Time: [facility] Reported Date/Time: Performed By: #### 1 6963X, 25569Z, 41957U, 94561G, 79306A, 00361U, 26260 #### [facility] [address] [place] [address] SEROTYPE 68 (9V) 0.5 Normal [facility] Comment on above: Order Comment: [facility] performed at: [employer],, [address] [place] [address], , Gis Professor: Angela Feng MD,PhD,MANOHAR [facility] Collection Date/Time: [facility] Results Received Date/Time: [facility] Reported Date/Time: Performed By: #### 1 6963X, 35857G, 76312G, 16152Q, 24325G, 78740G, 08833 #### [facility] [address] [place] [address] SEROTYPE 70 (33F) 0.3 Normal [facility] Comment on above: Order Comment: [facility] performed at: [employer],, [address] [place] [address], , Gis Professor: Angela Feng MD,PhD,MANOHAR [facility] Collection Date/Time: [facility] Results Received Date/Time: [facility] Reported Date/Time: Result Comment: Sero logic correlates of protection against pneumococcal disease have not been rigorously established for all patient populations. Published data and expert consensus (including WHO) suggest protection from invasive disease usually occurs at levels >or =0.3-0.50 mcg/mL for healthy children receiving pneumococcal conjugate vaccines. Higher titers may be necessary to protect from non-invasive infection (e.g., pneumonia, otitis, sinusitis). Expert opinion suggests that a cut-off of >= 1.3 mcg/mL may be a more relevant value to assess antibody responses after pneumococcal polysaccharide vaccines or for immunocompromised patients. In addition to antibody quantity, protection also depends on antibody avidity and opsonophagocytic activity. Some experts consider that post-vaccination (4-6 weeks) IgG seroconversion and/or 2- to 4-fold rise in IgG titers for >50% to 70% of vaccine serotypes demonstrates a normal post-vaccine serologic response. Persons with high initial serotype-specific titers may have less robust responses. [facility] uses a multi-analyte immunodetection (MAID) method. The method employs the Zamzee flow cytometric system which measures multiple analytes simultaneously. The FDA standard reference serum 89-S is used as the calibration standard. Results are reported in mcg/mL. This assay detects all of the 23 of the serotypes in the 23-valent polysaccharide vaccine and 12 of the 13 serotypes in the 13-valent conjugate vaccine. This test was developed and its analytical performance characteristics have been determined by [facility]. It has not been cleared or approved by FDA. This assay has been validated pursuant to the CLIA regulations and used for clinical purposes. For additional information, please refer to http://education.[employer]/faq/ALT266 (This link is being provided for informational/ educational purposes only.) Performed By: #### 1 6963X, 64196X, 27682A, 54295C, 92175T, 40487L, 53816 #### [facility] Default [address] [place] [address] SEROTYPE 8 (8) 0.3 Normal [facility] Retail Sales Merchandiser Comment on above: Order Comment: [facility] performed at: , [facility],, [address] [place] [address], [address], Gis Professor: Angela Feng MD,PhD,MANOHAR [facility] Collection Date/Time: [facility] Results Received Date/Time: [facility] Reported Date/Time: Performed By: #### 1 6963X, 52348K, 48290P, 93310M, 06248G, 54707Q, 92236 #### [facility] Default [address] [place] [address] SEROTYPE 9 (9N) <0.3 Normal [employer] Merchandiser Comment on above: Order Comment: [facility] performed at: [facility], [facility],, [address] [place], [address], Gis Professor: Angela Feng MD,PhD,MANOHAR [facility] Collection Date/Time: [facility] Results Received Date/Time: [facility] Reported Date/Time: Performed By: #### 1 6963X, 72966Z, 71873R, 62764T, 57219K, 67444V, 09244 #### [facility] [address] [place] [address] Chart Updateon 04-12-2021 Chart Update Chart Update Shiv had a migraine today and was unable to attend class. Signatures Electronically signed by : Chica Whitmore, FILE CONVERSION OPERATOR-TRIMMING ASSEMBLER FILE CONVERSION OPERATOR-CEMENT SPRAYER HELPER; Apr 12 2021 3:16PM EST (Author) Normal [employer] COVID + FLU Quick Testingon 04-04-2021 SARS-CoV-2 (COVID-19) RNA PAMELA+probe Ql (Unsp spec) Negative Electronifie Other COVID + FLU Quick Testing Negative Electronifie Other Office Visit (Pediatric Neur ology)on 03-22-2021 Follow-up visit Diagnoses/Problems Migraine (346.90) (G43.909) Anxiety (300.00) (F41.9) Orders Migraine Start: Verapamil HCl - 40 MG Oral Tablet; TAKE 1 TABLET 3 times daily MRI Brain without Contrast; Status:Hold For - Scheduling; Requested for:[id number]; Does patient have exposure to metal fragments? : N Radiologist to Determine Optimal Study : Y Requesting physician's phone/pager number? : [phone] Does the patient have a Cochlear Implant, Pacemaker, Defibrilator, Pacing Wire, Brain Aneurysm Clip, Implanted Nerve or Bone Graft Simulator, Implanted Breast Tissue Director Of Product Design, Glucose Monitor, or Neulasta Device? : No Is the patient or breast feeding? : No What are the patient's signs and symptoms? : Migraines that are now waking her from sleep Patient Discussion/Summary Shiv is having an increase in migraines, anxiety and moodiness. She continues to have issues with her bowels. She is having some issues with sleep initiation. She has had one headache that has woken her from a headache, without having gone to bed with a headache. I have talked with her about the followin. Headaches have woken her from sleep. I am ordering a head MRI 2. We talked about starting Verapamil. Dosing schedule will be sent 3. Continue with the Ajovy until the benefit from the Verapamil is noted. 4. Continue with Prozac as well as working with your psychiatrist. 5. Continue to work on anxiety management strategies. 6. Can use cocktail to break headache once they occur. 7. Call with updates. My nurse is Yolanda Calvillo at [phone]. 8. Follow up in 2-3 months with updates in the interim. Chief Complaint An interactive audio and video telecommunication system which permits real time communications between the patient (at the originating site) and provider (at the distant site) was utilized to provide this telehealth service. Verbal consent was requested and obtained from SHIV EVANGELISTA on this date, 03/22/2021 03:30 PM , for a telehealth visit. Follow up migraines Accompanied by alone. History of Present Illness This visit was completed via phone or [employer] due to the restrictions of the COVID-19 pandemic. All issues as below were discussed and addressed but no physical exam was performed. If it was felt that the patient should be evaluated in clinic then they were directed there. The patient/guardian verbally consented to the visit. Shiv is a 21 year old young woman with POTS, anxiety and headaches. She was seen last in August. She has also been diagnosed IGA deficiency, celiac and fructose intolerance. She denies any other autoimmune issues. She is still really constipated. Headaches have increased in frequency and she is now complaining of headaches 2-3 times per week. Anxiety is also increased She is on Prozac 30 mg daily. She is taking Hydroxyzine at bed but does not like the way that she feels in the morning. Ajovi monthly Zofran as needed and omeprazole. Sleep: Hydroxyzine helps but causes hangover sleepiness. She is able to fall asleep on her own. Weight is 107 down from 123. Mood is down, she does not smile as much. 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 She has been having more issues with dizziness. Review of Systems A review of systems finds headaches. Active Problems Anxiety (300.00) (F41.9) Chest pain, midsternal (786.51) (R07.89) Migraine (346.90) (G43.909) Mood swings (799.24) (R45.86) POTS (postural orthostatic tachycardia syndrome) (427.89) (I49.8) Syncope (780.2) (R55) Urinary tract infection, bacterial (599.0,041.9) (N39.0,A49.9) Family History Family history of migraine headaches (V17.2) (Z82.0) Family history of syncope (V19.8) (Z84.89) Family history of syncope (V19.8) (Z84.89) Social History Feels safe at home Has smoke detectors Lives with parents () Non-smoker (V49.89) (Z78.9) Older siblings Allergies No Known Drug Allergies Recorded By: Mary Ellen Land; 06/27/2016 1:49:25 PM Current Meds Medication NameInstruction Adapalene-Benzoyl Peroxide 0.1-2.5 % External Gel Ajovy 225 MG/1.5ML Subcutaneous Solution Auto-injectorINJECT 225 MG Once monthly Albuterol Sulfate HFA 108 (90 Base) MCG/ACT Inhalation Aerosol SolutionINHALE 2 PUFFS BY MOUTH EVERY 4 HOURS NEEDED Cefdinir 300 MG Oral CapsuleTAKE 2 CAPSULES DAILY. clonazePAM 0.5 MG Oral TabletTAKE 1/2-1 TABLET BY MOUTH 3 TIMES A DAY NEEDED FOR ANXIETY Doxycycline Hyclate 100 MG Oral Capsule FLUoxetine HCl - 10 MG Oral CapsuleTAKE ONE CAPSULE BY MOUTH ONE TIME DAILY FLUoxetine HCl - 20 MG Oral CapsuleTAKE 1 CAPSULE BY MOUTH EVERY DAY FLUoxetine HCl - 20 MG Oral TabletTAKE 1 AND 1/2 TABLETS BY MOUTH DAILY hydrOXYzine HCl - 25 MG Oral TabletTAKE 1 TABLET BY MOUTH NEEDED FOR ANXIETY Hyoscyamine Sulfate 0.125 MG Sublingual Tablet Sublingual Ketorolac Tromethamine 10 MG Oral Tablettake 1 tablet at headach (more content not included)... Normal [facility] XR Abdomen Single View (KUB) *on 03-08-2021 XR Abdomen Single View (KUB)* HISTORY: Nausea and generalized abdominal pain. Chronic constipation. COMPARISON: CT 11/12/2019 RESULT: Nonspecific nondilated bowel gas pattern. Feces throughout the colon. No abnormal calcifications. No acute osseous findings. Lung bases unremarkable. No other significant abnormality. IMPRESSION: No acute radiographic findings. Report reported and signed by Butch Sanchez on 03/08/2021 194 Normal [facility] [employer] COVID Quick Testingon 2021 Result Negative [employer] Other COVID Quick Testingon 2020 Result Negative [employer] Other COVID Quick Testingon 2020 Result Negative [facility] Other Quick Strepon 11-19-2020 S. pyogenes Org specific cx Ql (Throat) Negative [employer] Other Quick Strep [employer] Other CNTHERAPYon 11-13-2020 CNTHERAPY OT[facility] SHIV EVANGELISTA ([id number]) 2 F Date Time Provider Department 11/13/20 10:45 AM LYNN POTTS PTAGauri Date Time Provider Department Center 11/13/2020 10:45 AM [id number] POTTS PTAGauri [facility] Reason for Visit: Physical Therapy [503] PT Discharge [752] Visit Diagnosis:Spasm of muscle [M62.838] Allergies As of Date: 11/13/2020 (No Known Allergies) Date Reviewed: 02/21/2020 Reviewed by: Bela Esquivel MD - Fully Assessed Prescriptions as of 10/08/2021 - tegaserod hydrogen maleate 6 mg tablet (ZELNORM) Take 1 tablet (6 mg) by mouth twice daily before meals. - linaCLOtide (LINZESS) 290 mcg capsule Take 1 capsule by mouth DAILY (6 AM). - hyoscyamine sublingual (LEVSIN SL) 0.125 mg DISSOLVE 1 TABLET UNDER THE TONGUE THREE TIMES A DAY NEEDED - citalopram (CELEXA) 20 mg tablet Take 2 tablets by mouth once daily. - busPIRone (BUSPAR) 5 mg tablet Take 1 tablet by mouth daily at bedtime. - AJOVY AUTOINJECTOR 225 mg/1.5 mL auto-injector Inject 1.5 mL subcutaneously once every month. - hydrOXYzine HCl (ATARAX) 25 mg tablet Take 1 tablet by mouth every 4 hours as needed. - , 1.5 mg-30 mcg (21)/75 mg (7) tablet Take 1 tablet by mouth once daily. - lamoTRIgine ER (LAMICTAL XR) 50 mg 24 hr tablet Take 2 tablets by mouth twice daily. [facility] CNTHERAPYon 11-09-2020 CNTHERAPY OT/PT/Speech Visit ([facility]) SHIV EVANGELISTA ([id number]) 2 F Date Time Provider Department 11/09/20 11:30 AM ALEXANDRA SUAREZ Date Time Provider Department Center 11/09/2020 11:30 AM [id number] SUAREZ [facility] Reason for Visit: PT Eval [747] Primary Visit Diagnosis:Spasm of muscle [M62.838] Other Visit Diagnosis:Constipati on, unspecified constipation type [K59.00] Allergies As of Date: 11/09/2020 (No Known Allergies) Date Reviewed: 02/21/2020 Reviewed by: Bela Esquivel MD - Fully Assessed Prescriptions as of 11/09/2020 - tegaserod hydrogen maleate 6 mg tablet (ZELNORM) Take 1 tablet (6 mg) by mouth twice daily before meals. - linaCLOtide (LINZESS) 290 mcg capsule Take 1 capsule by mouth DAILY (6 AM). - hyoscyamine sublingual (LEVSIN SL) 0.125 mg DISSOLVE 1 TABLET UNDER THE TONGUE THREE TIMES A DAY NEEDED - citalopram (CELEXA) 20 mg tablet Take 2 tablets by mouth once daily. - busPIRone (BUSPAR) 5 mg tablet Take 1 tablet by mouth daily at bedtime. - AJOVY AUTOINJECTOR 225 mg/1.5 mL auto-injector Inject 1.5 mL subcutaneously once every month. - hydrOXYzine HCl (ATARAX) 25 mg tablet Take 1 tablet by mouth every 4 hours as needed. - JUNEL FE .5, 28, 1.5 mg-30 mcg (21)/75 mg (7) tablet Take 1 tablet by mouth once daily. - lamoTRIgine ER (LAMICTAL XR) 50 mg 24 hr tablet Take 2 tablets by mouth twice daily. Progress Notes: Alexandra Suarez, PT 11/09/2020 2:30 PM Signed Episode Visit Count: 1 Therapist That Will Oversee The Plan Of Care: Alexandra Howell Start of Care Date: 11/09/20 Onset Date: 11/10/19 Patient Identified by Name and Date of : Yes REHABILITATION AND SPORTS THERAPY PHYSICAL THERAPY EVALUATION PLAN OF CARE: Assessment: Shiv Evangelista is a 20 year old female seen today for constipation ongoing for over a year. Patient presents with impaired pelvic floor muscle dynamics, increased muscle spasm internally and/or externally, poor bowel/toileting habits, decreased fiber intake, decreased fluid intake, high level of anxiety and lack of home exercise program which are all contributing to patient's constipation. Patient may benefit from continuation of skilled physical therapy services to address these impairments and limitations to improve quality of life. Prognosis: Fair Fair due to: clinical presentation;chronic nature of impairments;decrease d motivation;limited tolerance to activity Goals for Episode of Care: created on 11/09/20 through 01/08/21 Pelvic Pain: Patient to demonstrate independence in HEP Patient displays increased flexibility in hips to allow for decrease pain Patient displays decreased muscle spasms in levator and puborectalis to allow for decreased pain levels and ability to lengthening pelvic floor for bowel movement. Patient demonstrates ability to perform diaphragmatic breathing and relaxation Patient will be able to decrease muscle resting tone of pelvic floor muscles to allow for decreased pain. Patient reports a reduction in abdominal pain, bloating or gas Patient reports less constipation that initial evaluation Pt will report bowel movement weekly. Knowledgeable regarding prophylaxis. Patient Goals: have a bowel movement Planned Interventions, Frequency, and Duration: Current Frequency: 1x/week Duration: 8 weeks Total Number of Visits Planned: 8 Planned Treatment Interventions: Therapeutic exercise (80629);Neuromuscula r re-education (39702);Manual therapy (13627);Therapeutic activities (88054);Self-fci management (38845);Patient/Fami ly/Caregiver Education;Biofeedbac k Pelvic (07501,02001) PLAN FOR NEXT VISIT: toileting positions, colon massage, internal release, external soft tissue work Patient demonstrates good understanding of plan of care and treatment. The above goals and plan of care were discussed and agreed upon by patient/family. Transfer of Care Due To: Closer to Home Patient transferring care to: Lynn Potts PT SUBJECTIVE: Shiv Evangelista is a 20 year old female seen today for Pt reports that she started to have constipation and nausea about a year ago without known cause. Pt has tried PT closer to home with no relief, They worked on her back and that was it, not pelvic floor PT. Pt was diagnosed with Celiac 3 weeks ago will have breath test coming up soon. Pt has high level of anxiety and has seen psych services for 2 weeks taking Prozac now. 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 Normal [facility] Office Visit (Pediatric Neur ology)on 08-30-2020 Follow-up visit Diagnoses/Problems Anxiety (300.00) (F41.9) Migraine (346.90) (G43.909) Mood swings (799.24) (R45.86) Syncope (780.2) (R55) Patient Discussion/Summary Shiv is having an increase in anxiety and moodiness. She continues to have issues with her bowels. She has been having more issues with headaches. Sleep is related to the level of anxiety but overall better. I have talked with her about the followin. Schedule a biofeedback session with Ramona Rice, EVER 2. Restart Prozac 10 mg then 20 mg at bed. Note effect on anxiety. 3. Look into counseling options through the school. 4. Continue to use Ativan for panic attacks. 5. Continue with the Ajovy for migraine management 6. Can use cocktail to break headache once they occur. 7. Call with updates. My nurse is Yolanda Calvillo at [phone]. 8. Follow up in 2-3 months with updates in the interim. Chief Complaint Follow up POTS Accompanied by mother. History of Present Illness Shiv is a 20 year old young woman with POTS, anxiety and headaches. She is taking 2 summer courses. She [facility] [employer] [employer] [facility] and is taking her courses through [employer] campus. She stopped all her meds because she felt foggy. She stopped all her meds a few weeks ago. She stopped the Prozac as she had been taking 30 mg.Anxiety was at least 50 % better on the Prozac, She sleeps with mom every night that she is at home. She sleeps better when she sleeps with mom. She still gets up and goes to work. She is seeing her friends more than in the past. When she is happy it's appropriate. She has had an increase in migraine complaints. The last one she lost vision in her left eye, peripheral in with a bad headache. She still takes Hydroxyzine 25 mg at anxiety onset. This is taken infrequently. She is also taking Amitiza 8 mg BID She is still having issues with constipation and GI has recommended pelvic floor PT. Panic attacks have reduced in frequency, last one being 2 months ago. Headaches have increased again but most likely related to the anxiety. She had a beneficial response to the Migraine cocktail in the past. Headaches may have worsened off the Lamictal. She had headaches over the holidays as well. She still works at [employer]. She denies any thoughts about hurting herself unless she is having a panic attack. She has been having more issues with dizziness. Review of Systems A review of systems finds soma anxiety and increase in headaches. Active Problems Anxiety (300.00) (F41.9) Chest pain, midsternal (786.51) (R07.89) Migraine (346.90) (G43.909) Mood swings (799.24) (R45.86) POTS (postural orthostatic tachycardia syndrome) (427.89) (I49.8) Syncope (780.2) (R55) Urinary tract infection, bacterial (599.0,041.9) (N39.0,A49.9) Family History Family history of migraine headaches (V17.2) (Z82.0) Family history of syncope (V19.8) (Z84.89) Family history of syncope (V19.8) (Z84.89) Social History Feels safe at home Has smoke detectors Lives with parents () Non-smoker (V49.89) (Z78.9) Older siblings Allergies No Known Drug Allergies Recorded By: Mary Ellen Land; 06/27/2016 1:49:25 PM Current Meds Medication NameInstruction Adapalene-Benzoyl Peroxide 0.1-2.5 % External Gel Ajovy 225 MG/1.5ML Subcutaneous Solution Auto-injectorINJECT 225 MG Once monthly Cefdinir 300 MG Oral CapsuleTAKE 2 CAPSULES DAILY. Doxycycline Hyclate 100 MG Oral Capsule FLUoxetine HCl - 20 MG Oral TabletTAKE 1 AND 1/2 TABLETS BY MOUTH DAILY hydrOXYzine HCl - 25 MG Oral TabletTAKE 1 TABLET BY MOUTH NEEDED FOR ANXIETY Hyoscyamine Sulfate 0.125 MG Sublingual Tablet Sublingual Ketorolac Tromethamine 10 MG Oral Tablettake 1 tablet at headache onset may repeat once in 6 hours if needed. Linzess 145 MCG Oral Capsule Linzess 290 MCG Oral Capsule LORazepam 0.5 MG Oral TabletTAKE 1 TABLET NEEDED BY MOUTH FOR ANXIETY Minocycline HCl - 100 MG Oral Capsule Ondansetron HCl - 4 MG Oral Tablettake 1 tablet by mouth AT ONSET OF HEADACHE Trulance 3 MG Oral Tablet Zelnorm 6 MG Oral Tablet Vitals Vital Signs Recorded: [id number] 01:02PM [id number] lb 7.31 oz 2-20 Weight Acwheogksr12 % Physical Exam Constitutional - Well dressed, well nourished child, no apparent distress. Skin - No neurocutaneous stigmata. HEENT- Normocephalic/atraum atic, mucous membranes moist, no scleral icterus, conjunctiva pink, and nondysmorphic facies. Cardiovascular - RRR, normal S1/S2. No murmur auscultated. No neurovascular bruits. Respiratory - Lungs clear to auscultation bilaterally with good air exchange Extremities - Full range of motion, warm and well perfused with brisk capillary refill Neurologic - Mental Status: Alert and interactive. Oriented to person, place and time. Normal attention and concentration. Fluent spontaneous speech with no paraphrasic errors. Cranial Nerve II: Visual morgan full to confrontation bilaterally. Fundoscopi (more content not included)... Normal [facility] No report was sent Normal [facility] Provider [facility] 01-17-2020 Provider Orders [id number] [facility] Vital Signs Date Time Vital Sign Value Performing Clinician Facility 11-25-2023 14:49-0400 Body mass index (BMI) [Ratio] 25.15 kg/m2 [employer] Work Phone: [facility] 11-25-2023 14:49-0400 Body weight 62.37 kg [employer] Work Phone: [facility] 11-25-2023 14:49-0400 Diastolic blood pressure 68 mm[Hg] [employer] Work Phone: [facility] 11-25-2023 14:49-0400 Systolic blood pressure 118 mm[Hg] [employer] Work Phone: [facility] 07-04-2023 10:15-0400 Body height 157.48 cm DO Ok [employer] Work Phone: [facility] 07-04-2023 10:15-0400 Body mass index (BMI) [Ratio] 23.8 kg/m2 DO Ok Charleschak Work Phone: [facility] 07-04-2023 10:15-0400 Body weight 58.96 kg DO Ok Vaschak Work Phone: [facility] 07-04-2023 10:15-0400 Diastolic blood pressure 70 mm[Hg] DO Ok Vaschak Work Phone: [facility] 07-04-2023 10:15-0400 Heart rate 72 /min DO Ok Charleschak Work Phone: [facility] 07-04-2023 10:15-0400 Respiratory rate 18 /min DO Ok Giacomok Work Phone: [facility] 07-04-2023 10:15-0400 SaO2% (BldA) [Mass fraction] 98 % DO Ok Giacomok Work Phone: [facility] 07-04-2023 10:15-0400 Systolic blood pressure 124 mm[Hg] DO Ok Charleschak Work Phone: [facility] 09-20-2022 08:00-0400 Body temperature 97.9 [degF] DO Ok Giacomok Work Phone: [facility] 09-20-2022 08:00-0400 Diastolic blood pressure 74 mm[Hg] DO Ok Charleschak Work Phone: [facility] 09-20-2022 08:00-0400 Heart rate 73 /min DO Ok Charleschak Work Phone: [facility] 09-20-2022 08:00-0400 Respiratory rate 18 /min DO Ok Charleschak Work Phone: [facility] 09-20-2022 08:00-0400 SaO2% (BldA) [Mass fraction] 98 % DO Ok Vaschak Work Phone: [facility] 09-20-2022 08:00-0400 Systolic blood pressure 118 mm[Hg] DO Ok Marbella Work Phone: [facility] 09-18-2022 08:29-0400 Body height 157.48 cm DO Ok Tyson Work Phone: [facility] 09-18-2022 08:29-0400 Body weight 72.57 kg DO Ok Tyson Work Phone: [facility] 08-10-2022 17:06-0400 Diastolic blood pressure 78 mm[Hg] DO Ok Tyson Work Phone: [facility] 08-10-2022 17:06-0400 Heart rate 105 /min DO Ok Tyson Work Phone: [facility] 08-10-2022 17:06-0400 Systolic blood pressure 133 mm[Hg] DO Ok Tyson Work Phone: [facility] 08-10-2022 17:00-0400 Respiratory rate 16 /min DO Ok Tyson Work Phone: [facility] 08-10-2022 16:38-0400 SaO2% (BldA) [Mass fraction] 98 % DO Ok Tyson Work Phone: [facility] 11-25-2021 23:45-0400 Diastolic blood pressure 71 mm[Hg] Rayray Kenia [facility] 11-25-2021 23:45-0400 Heart rate 77 /min Rayray Kenia [facility] 11-25-2021 23:45-0400 Hourly Rounding Rayray Kenia [facility] 11-25-2021 23:45-0400 Respiratory rate 18 /min Rayray Kenia [facility] 11-25-2021 23:45-0400 SaO2% (BldA) [Mass fraction] 100 % Rayray Kenia [facility] 11-25-2021 23:45-0400 Systolic blood pressure 105 mm[Hg] Rayray Kenia [facility] 11-25-2021 22:00-0400 Diastolic blood pressure 83 mm[Hg] Rayray Kenia [facility] 11-25-2021 22:00-0400 Heart rate 69 /min Rayray Kenia [facility] 11-25-2021 22:00-0400 Hourly Rounding Rayray Kenia [facility] 11-25-2021 22:00-0400 Respiratory rate 14 /min Rayray Kenia [facility] 11-25-2021 22:00-0400 Systolic blood pressure 123 mm[Hg] Rayray Kenia [facility] 11-25-2021 19:00-0400 Body temperature 98.42 [degF] Rayray Kenia [facility] 11-25-2021 19:00-0400 Diastolic blood pressure 81 mm[Hg] Rayray Kenia [facility] 11-25-2021 19:00-0400 Heart rate 79 /min Rayray Kenia [facility] 11-25-2021 19:00-0400 Hourly Rounding Rayray Kenia [facility] 11-25-2021 19:00-0400 Respiratory rate 12 /min Rayray Kenia [facility] 05-30-2021 12:44-0400 Body height 160 cm Treence Pyle Work Phone: BW-Fszzdybjv-Qynkvkr y H DO Work Phone: 05-30-2021 12:44-0400 Body mass index (BMI) [Ratio] 19.65 kg/m2 Terence Pyle Work Phone: NA-Fjodnctpn-Ycmnekg y H DO Work Phone: 05-30-2021 12:44-0400 Body surface area Derived from formula 1.5 m2 Terence Pyle Work Phone: JN-Wxiixwugc-Xxnsvom y H DO Work Phone: 05-30-2021 12:44-0400 Body temperature 98.5 [degF] Terence Pyle Work Phone: CU-Xheawdjhs-Vtfxfht y H DO Work Phone: 05-30-2021 12:44-0400 Body weight 50.3 kg Terence Pyle Work Phone: VK-Ioiujqnln-Athnzpk y H DO Work Phone: 05-30-2021 12:44-0400 Diastolic blood pressure 74 mm[Hg] Terence Pyle Work Phone: TB-Lcpotkcyc-Bgbxcxk y H DO Work Phone: 05-30-2021 12:44-0400 Heart rate 74 /min Terence Pyle Work Phone: UT-Apyaprubt-Owbcgaz y H DO Work Phone: 05-30-2021 12:44-0400 Systolic blood pressure 120 mm[Hg] Terence Pyle Work Phone: BF-Wcrtkyyqp-Sawjlkg y H DO Work Phone: 05-17-2021 23:00-0400 Diastolic blood pressure 61 mm[Hg] [facility] 05-17-2021 23:00-0400 Heart rate 81 /min [facility] 05-17-2021 23:00-0400 SaO2% (BldA) [Mass fraction] 97 % [facility] 05-17-2021 23:00-0400 Systolic blood pressure 106 mm[Hg] [facility] 05-17-2021 20:48-0400 Body temperature 98.6 [degF] [facility] 05-17-2021 20:48-0400 Diastolic blood pressure 83 mm[Hg] [facility] 05-17-2021 20:48-0400 Heart rate 97 /min [facility] 05-17-2021 20:48-0400 Respiratory rate 16 /min [facility] 05-17-2021 20:48-0400 SaO2% (BldA) [Mass fraction] 98 % [facility] 05-17-2021 20:48-0400 Systolic blood pressure 128 mm[Hg] [facility] 04-04-2021 14:45-0500 Body height 157.48 cm Albert White Other [employer] Other 04-04-2021 14:45-0500 Body mass index (BMI) [Ratio] 20.3 kg/m2 Albert White Other [employer] Other 04-04-2021 14:45-0500 Body temperature 100 [degF] Albert White Other [employer] Other 04-04-2021 14:45-0500 Body weight 50.35 kg Albert White Other [employer] Other 04-04-2021 14:45-0500 Respiratory rate 16 /min Albert White Other [employer] Other 04-04-2021 14:45-0500 SaO2% (BldA) [Mass fraction] 99 % Albert White Other [employer] Other 2021 10:00-0500 Body height 157.48 cm Pankaj Berger Other [employer] Other 2021 10:00-0500 Body mass index (BMI) [Ratio] 20.3 kg/m2 Pankaj Ditty Other [employer] Other 2021 10:00-0500 Body weight 50.35 kg Pankaj Dittangela Other [employer] Other 2021 10:00-0500 Diastolic blood pressure 67 mm[Hg] Pankaj Ab Other [employer] Other 2021 10:00-0500 Systolic blood pressure 108 mm[Hg] Pankaj Berger Other [employer] Other 12-13-2020 13:10-0400 Body height 157.48 cm Chacho Domingo Other [employer] Other 12-13-2020 13:10-0400 Body mass index (BMI) [Ratio] 21.03 kg/m2 Chacho Domingo Other [employer] Other 12-13-2020 13:10-0400 Body temperature 98.4 [degF] Chacho Domingo Other [employer] Other 12-13-2020 13:10-0400 Body weight 52.16 kg Chacho Domingo Other [employer] Other 12-13-2020 13:10-0400 Diastolic blood pressure 81 mm[Hg] Chacho Domingo Other [employer] Other 12-13-2020 13:10-0400 SaO2% (BldA) [Mass fraction] 100 % Chacho Domingo Other [employer] Other 12-13-2020 13:10-0400 Systolic blood pressure 127 mm[Hg] Chacho Domingo Other [employer] Other 11-19-2020 13:15-0400 Body height 157.48 cm Albert White Other [employer] Other 11-19-2020 13:15-0400 Body mass index (BMI) [Ratio] 20.12 kg/m2 Albert White Other [employer] Other 11-19-2020 13:15-0400 Body temperature 98.9 [degF] Albert Christopher Other [employer] Other 11-19-2020 13:15-0400 Body weight 49.9 kg Albert White Other [employer] Other 11-19-2020 13:15-0400 Diastolic blood pressure 91 mm[Hg] Albert White Other [employer] Other 11-19-2020 13:15-0400 SaO2% (BldA) [Mass fraction] 100 % Albert Christopher Other [employer] Other 11-19-2020 13:15-0400 Systolic blood pressure 149 mm[Hg] Albert Christopher Other [employer] Other 11-06-2020 15:00-0400 Body weight 51.26 kg Pankaj Berger Other [facility] Other 08-30-2020 13:02-0400 Body weight 56 kg Terence Hess Pyle Work Phone: PR-Mjyovkeedg-Nclxxb nds Work Phone: 08-30-2020 13:02-0400 42 1 Terence Pyle Work Phone: KF-Mazfsbwrem-Ykxmou nds Work Phone: Comment on above: 2-20_WPerc 11-05-2019 12:33-0400 BMI (Body Mass Index) 22.76 kg/m2 Chica Haim ZY-Ephdxhaqdw-Arcdmx ogy-Admin RBC 585 Work Phone: 11-05-2019 12:33-0400 Body weight 56.81 kg Chica Haim WC-Ykwyjmbxmh-H eurol ogy-Admin RBC 585 Work Phone: 11-05-2019 12:33-0400 BP Diastolic 77 mm[Hg] Chica Haim RR-Wpdhkuldky-C eurol ogy-Admin RBC 585 Work Phone: 11-05-2019 12:33-0400 BP Systolic 127 mm[Hg] Chica Haim JQ-Sdqjgjtkqi-T eurol ogy-Admin RBC 585 Work Phone: 11-05-2019 12:33-0400 BSA (Body Surface Area) 1.57 m2 Chica Haim OK-Fngsabgaow-Ehaofo ogy-Admin RBC 585 Work Phone: 11-05-2019 12:33-0400 Height 158 cm Chica Haim CS-Rlbchrwzkh-X eurol ogy-Admin RBC 585 Work Phone: 11-05-2019 12:33-0400 21 1 Chica Haim NT-Qxaxtvgeng-Q eurol ogy-Admin RBC 585 Work Phone: Comment on above: 2-20 Stature Percentile 11-05-2019 12:33-0400 49 1 Chica Haim QK-Ufrcfyajox-L eurol ogy-Admin RBC 585 Work Phone: Comment on above: 2-20 Weight Percentile 11-05-2019 12:33-0400 64 1 Chica Haim SQ-Aefywlonju-S eurol ogy-Admin RBC 585 Work Phone: Comment on above: BMI Percentile 08-25-2019 12:37-0400 BMI (Body Mass Index) 22.79 kg/m2 Chica Haim YB-Xprreateay-Bmuzcq og-Admin RBC 585 Work Phone: 08-25-2019 12:37-0400 Body weight 56.9 kg Chica Haim TZ-Ecwizvuabt-J eurol og-Admin RBC 585 Work Phone: 08-25-2019 12:37-0400 BP Diastolic 76 mm[Hg] Chica Haim IE-Kthzjhtizk-S eurol og-Admin RBC 585 Work Phone: 08-25-2019 12:37-0400 BP Systolic 126 mm[Hg] Chica Haim MY-Fbdkuurppz-C eurol og-Admin RBC 585 Work Phone: 08-25-2019 12:37-0400 BSA (Body Surface Area) 1.57 m2 Chica Haim ZQ-Fzkurfsynz-Ftkatx og-Admin RBC 585 Work Phone: 08-25-2019 12:37-0400 Height 158 cm Chica Haim DF-Nanqchixln-O eurol og-Admin RBC 585 Work Phone: 08-25-2019 12:37-0400 21 1 Chica Haim IS-Cowavmgxfy-D eurol og-Admin RBC 585 Work Phone: Comment on above: 2-20 Stature Percentile 08-25-2019 12:37-0400 51 1 Chica Haim SY-Zxesczvusj-O eurol og-Admin RBC 585 Work Phone: Comment on above: 2-20 Weight Percentile 08-25-2019 12:37-0400 65 1 Chica Haim WK-Nhkjjymade-D eurol og-Admin RBC 585 Work Phone: Comment on above: BMI Percentile Encounters Encounter Date Encounter Type Care Provider Facility Start: 11-25-2023 End: 11-25-2023 flow sheet Navid Alondra DO Work Phone: [facility] Comment on above: Second trimester pre gnancy; 13 weeks gestation of Start: 11-25-2023 End: 11-25-2023 Bamboo flowsheet Navid Alondra DO Work Phone: [facility] Start: 11-25-2023 End: 11-25-2023 Bamboo flowsheet Navid Alondra DO Work Phone: [facility] Start: 11-25-2023 End: 11-25-2023 ambulatory NAVID ALONDRA Not Available Start: 10-23-2023 End: 10-23-2023 ambulatory RAHEL DIDION Not Available Start: 08-06-2023 End: 08-06-2023 ambulatory TERENCE A VISCI Not Available Start: 07-04-2023 End: 07-04-2023 ambulatory DO Ok Tyson Work Phone: [facility] Work Phone: Start: 07-04-2023 End: 07-04-2023 Patient encounter procedure DO Ok Tyson Work Phone: [facility] Work Phone: Start: 06-18-2023 End: 06-18-2023 ambulatory OK TYSON Not Available Start: 06-07-2023 Non-patient / Non-visit DO Guillermo Tyson Work Phone: [facility] Work Phone: Start: 06-02-2023 End: 06-02-2023 ambulatory TERENCE A VISCI Not Available Start: 05-31-2023 End: 05-31-2023 Patient encounter procedure DO Ok Tyson Work Phone: [facility] Work Phone: Start: 05-31-2023 End: 05-31-2023 ambulatory DO Ok Tyson Work Phone: [facility] Work Phone: Start: 05-23-2023 End: 05-23-2023 ambulatory TERENCE TOLENTINO Not Available Start: 05-14-2023 End: 05-14-2023 ambulatory RAHEL MOLINA Not Available Start: 11-11-2022 End: 11-11-2022 ambulatory Ok Tyson Facility:[facility] Start: 09-23-2022 End: 09-23-2022 Patient encounter procedure DO Ok Tyson Work Phone: [facility]- [facility] Work Phone: Start: 09-23-2022 End: 09-23-2022 ambulatory DO Ok Tyson Work Phone: [facility] Work Phone: Start: 09-18-2022 End: 09-20-2022 Evaluation and management of inpatient DO Ok Tyson Work Phone: [facility] [place] Work Phone: Start: 09-03-2022 End: 09-03-2022 ambulatory Chica Newman Facility:[facility] Start: 09-03-2022 End: 09-03-2022 Departed Referred DO Ok Tyson Work Phone: [facility] [place] Work Phone: Start: 08-10-2022 End: 08-10-2022 Patient encounter procedure DO Ok Tyson Work Phone: [facility]-3 [place] - O/P Start: 08-10-2022 End: 08-10-2022 ambulatory DO Ok Tyson Work Phone: [facility] Work Phone: Start: 11-25-2021 End: 11-26-2021 Emergency department patient visit Rayray Aquino Facility[place] Start: 11-25-2021 End: 11-25-2021 Emergency department patient visit Rayray Aquino [facility] Start: 10-09-2021 End: 10-09-2021 Patient encounter procedure DO Ok Charlesisabela Work Phone: [facility] Start: 09-23-2021 End: 09-23-2021 ambulatory Pankaj Berger Other [employer] Other Start: 09-23-2021 Telephone encounter Pankaj Serrano [facility] Start: 09-18-2021 End: 09-18-2021 ambulatory Pankaj Berger Other [employer] Other Start: 09-18-2021 Telephone encounter Pankaj Serrano [facility] Start: 09-13-2021 End: 09-13-2021 Patient encounter procedure DO Ok Charlesisabela Work Phone: [facility] Start: 09-03-2021 Rx Renewal Terence Eugene er Work Phone: PV-Kiwxlhnzzb-Nqhhys 220 Work Phone: Start: 08-20-2021 End: 08-20-2021 Patient encounter procedure DO Ok Charlesisabela Work Phone: [facility] Start: 07-03-2021 End: 07-03-2021 ambulatory Pankaj Berger Other [employer] Other Start: 07-03-2021 Telephone encounter Pankaj Serrano [facility] Start: 06-11-2021 End: 06-11-2021 ambulatory Pankaj Berger Other [employer] Other Start: 06-11-2021 Telephone encounter Pankaj Serrano [facility] Start: 06-02-2021 Rx Renewal Terence Eugene er Work Phone: BZ-Vlvewbombl-Yjwrelqfe-Ad min RBC 585 Work Phone: Start: 05-30-2021 ambulatory Terence Negroph Edenilson Facility: Start: 05-30-2021 Office outpatient vi sit 15 minutes Terence Pyle Work Phone: FE-Oacslimdtu-Lyfkycyko-Ad min RBC 585 Work Phone: Start: 05-30-2021 Patient encounter procedure Terence Pyle Work Phone: JL-Cmyhdghgc-Zbbgykgf H DO Work Phone: Start: 05-17-2021 End: 05-17-2021 Emergency department patient visit [facility] Start: 05-11-2021 Telephone encounter Terence Pyle Work Phone: WO-Ihmqludpjd-Jskqftkmaok 220 Work Phone: Start: 04-27-2021 End: 04-27-2021 ambulatory Pankaj Berger Other [employer] Other Start: 04-27-2021 Telephone encounter Pankaj Serrano [facility] Start: 04-09-2021 AUDIT Terence Eugene er Work Phone: QZ-Spkpvnwcsw-Viyvtsssdsu 220 Work Phone: Start: 04-06-2021 End: 04-06-2021 ambulatory Albert White Other [employer] Other Start: 04-06-2021 Telephone encounter Albert Byr[facility] [address] Start: 04-05-2021 End: 04-05-2021 ambulatory Pankaj Berger Other [employer] Other Start: 04-05-2021 Telephone encounter Pankaj STONE [facility] Start: 04-04-2021 End: 04-04-2021 ambulatory Albert White Other [employer] Other Start: 04-04-2021 Office outpatient vi sit 15 minutes Albert White [facility] Start: 04-03-2021 End: 04-03-2021 ambulatory Pankaj Berger Other [employer] Other Start: 04-03-2021 Telephone encounter Pankaj STONE G [facility] Start: 03-30-2021 End: 03-30-2021 ambulatory Pankaj Berger Other [employer] Other Start: 03-30-2021 Telephone encounter Pankaj STONE [facility] Start: 03-26-2021 Rx Renewal Terence Eugene er Work Phone: IV-Zbmlqukcff-Itlautfl 1600 Work Phone: Start: 03-22-2021 ambulatory Terence Pyle Facility:[id number] Start: 03-22-2021 Office outpatient vi sit 15 minutes Terence Pyle Work Phone: AI-Jexrstmzxa-Algyhqqrh-Ad min RBC 585 Work Phone: Start: 03-22-2021 Patient encounter procedure Terence Pyle Work Phone: FX-Vdindppkxr-Wgaijq 220 Work Phone: Start: 2021 End: 2021 ambulatory Pankaj Berger Other [employer] Other Start: 2021 Patient encounter procedure Pankaj Berger [facility] Start: 03-07-2021 End: 03-07-2021 ambulatory Pankaj Berger Other [employer] Other Start: 03-07-2021 Telephone encounter Pankaj Serrano [facility] Start: 02-15-2021 End: 02-15-2021 ambulatory Pankaj Berger Other [employer] Other Start: 02-15-2021 Telephone encounter Pankaj Serrano [facility] Start: 02-12-2021 End: 02-12-2021 ambulatory Brenda Ginty Other [employer] Other Start: 02-12-2021 Office outpatient vi sit 5 minutes Brenda Gintangela [facility] Start: 12-20-2020 End: 12-20-2020 ambulatory Pankaj Berger Other [employer] Other Start: 12-20-2020 Telephone encounter Pankaj Serrano [facility] Start: 12-14-2020 (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 Laura Day F [facility] Start: 12-14-2020 End: 12-14-2020 ambulatory Laura Day Other [employer] Other Start: 12-13-2020 End: 12-13-2020 ambulatory Chacho Domingo Other [employer] Other Start: 12-13-2020 Office outpatient vi sit 15 minutes Chacho Domingo [facility] Start: 12-11-2020 End: 12-11-2020 ambulatory Pankaj Berger Other [employer] Other Start: 12-11-2020 Telephone encounter Pankaj STONE [facility] Start: 11-28-2020 AUDIT Terence Eugene er Work Phone: HE-Zrqbtzwuyh-Qaaanqfhx-Ad min RBC 585 Work Phone: Start: 11-27-2020 Telephone encounter Pankaj STONE G [facility] Start: 11-21-2020 Telephone encounter Pankaj STONE [facility] Start: 11-19-2020 Office outpatient vi sit 15 minutes Albert White [facility] [address] Start: 11-08-2020 Telephone encounter Pankaj Berger [facility] Start: 11-06-2020 Patient encounter procedure Pankaj Berger [facility] Start: 09-27-2020 AUDIT Terence R Valorie er Work Phone: YE-Jsovqmwihv-Gwrnavhks Work Phone: Start: 08-30-2020 Office outpatient vi sit 15 minutes Terence Pyle Work Phone: JU-Gxxvhzvbnb-Qnbbiueog Work Phone: Start: 08-22-2020 AUDIT Terence R Valorie er Work Phone: OW-Ecmmlyxosp-Vgkbyufrr-Ad min RBC 585 Work Phone: Start: 07-19-2020 Rx Renewal Terence R [place] er Work Phone: HQ-Pvpryrvtrt-Zbdpapcnz-Ad min RBC 585 Work Phone: Start: 03-29-2020 Patient encounter procedure Chicaandra Whitmore FILE CONVERSION OPERATOR-TRIMMING ASSEMBLER, FILE CONVERSION OPERATOR-CEMENT SPRAYER HELPER AN-Ejofbnubei-Uerjvasa 1600 Work Phone: Start: 12-29-2019 Patient encounter procedure Chica Whitmore FILE CONVERSION OPERATOR-TRIMMING ASSEMBLER, FILE CONVERSION OPERATOR-CEMENT SPRAYER HELPER HP-Jbjvytwbpo-Qhihfrwm 1600 Work Phone: Start: 12-24-2019 End: 12-24-2019 Patient encounter procedure Bree (Rug Backing Stenciler) Aleshia Work Phone: [facility] Start: 12-24-2019 Results Only Bree (Rug Backing Stenciler) Aleshia Work Phone: Colorectal Surgery Start: 12-10-2019 End: 12-10-2019 Orders Only Bree (Rug Backing Stenciler) Aleshia Work Phone: Gastroenterology Comment on above: Constipation, unspec ified constipation type (Primary Dx) Start: 11-05-2019 Patient encounter procedure Chica HOPEWG-Qfgbutihcn-Qyisbybok-Ad min RBC 585 Work Phone: Start: 08-25-2019 Patient encounter procedure Chica HOPECT-Dnhgvjodaw-Fmegsrgg-Adm in RBC 585 Work Phone: Start: 04-28-2019 Patient encounter procedure Chica HOPEKF-Rfwyjvzhcs-Hqblwznk-Adm in RBC 585 Work Phone: Start: 12-30-2018 Patient encounter procedure Chica HOPEUW-Ksgttrgzdi-Nyxvxmgeb Work Phone: Start: 09-30-2018 Patient encounter procedure Chica HOPEPF-Zwitnxclbf-Ydyypscxw Work Phone: Start: 04-29-2018 Patient encounter procedure Chica HOPEXN-Qoglrlboyg-Zaeywqbkc Work Phone: Start: 01-28-2018 Patient encounter procedure Chica HOPEOH-Uzwlxwgkwz-Mouqiphgv Work Phone: Start: 11-07-2017 Patient encounter procedure Chica HOPEKR-Joculbkkbi-Eegcgfonr Work Phone: Start: 08-01-2017 Patient encounter procedure Chica HOPEHB-Vjwmwzwrno-Eorrujcdx Work Phone: Start: 05-02-2017 Patient encounter procedure Chica HOPEVV-Gxpymteciz-Rwbuvkapd Work Phone: Procedures Date Procedure Procedure Detail Performing Clinician Start: 11-25-2023 Urnls dip stick/tablet rgnt non-auto w/o micrscp Navidangela Navaso DO Work Phone: Start: 09-18-2022 Urine culture DO Ok Charlesisabela Work Phone: Start: 09-03-2022 Streptococcus agalactiae culture DO Krunal tai Charlesmaritzadrake Work Phone: Start: 08-10-2022 Urine culture DO Ok Sotomaritzadrake Work Phone: Start: 12-24-2019 PT ED PATIENT INFORMATION Bree (Rug Backing Stenciler) Aleshia Work Phone: Start: 11-05-2019 IO EKG Electrocardiogram- 12 Lead Almaz Whitmore Colonoscopy Astrit Hajairoari Esophagogastroduodenoscopy A strit Matheusmarcus Urine culture DO Ok waters Work Phone: Plan of Treatment Date Care Activity Detail Author Start: 12-24-2023 End: 12-24-2023 Patient encounter procedure 12/24/2023 3:40 PM EST Routine [facility] [address] [place] [id number] Navid Cantu, DO [address] Jerardo Ann, [place] [address] [facility] Start: 11-25-2023 End: 11-25-2023 Patient encounter procedure 11/25/2023 2:10 PM EDT Routine [facility] [address] [place] [id number] Navid Cantu, DO [address] [place] [address] Dr Jerardo Ann, [facility] Arrived [facility] Comment on above: Arrived Start: 10-12-2023 Influenza vaccination Influenza Vacc ine (#1) [facility] Start: 07-04-2023 [facility] Start: 09-20-2022 [facility] Start: 09-19-2022 Hospital admission [facility] Start: 09-18-2022 Hospital admission [facility] Start: 08-10-2022 [facility] Start: 08-10-2022 Hospital admission [facility] Start: 08-10-2022 Bacteria identified in Urine by Culture Urine Culture [facility] Start: 10-09-2021 End: 10-09-2021 Patient encounter procedure Departed Clinical [facility] Start: 05-30-2021 FUV, Provider: Chica Whitmore, Status: Pen, Time: 12:30 PM FUV, Provider: Chica Whitmore, Status: Pen, Time: 12:30 PM QE-Zcrojyqito-Puumrw 220 Work Phone: Start: 02-28-2021 FUV, Provider: Chica Whitmore, Status: Pen, Time: 12:30 PM FUV, Provider: Chica Whitmore, Status: Pen, Time: 12:30 PM CZ-Ziwxnwbkrx-Xmiddv ogy-Admin RBC 585 Work Phone: Start: 08-30-2020 FUV, Provider: Chica Whitmore, Status: Pen, Time: 12:30 PM FUV, Provider: Chica Whitmore, Status: Pen, Time: 12:30 PM OW-Ndceglvmcp-Ekbzpa ogy-Admin RBC 585 Work Phone: Start: 10-12-2019 Influenza vaccination INFLUENZA (#1) [facility] Start: 2019 CHLAMYDIA SCREENING (18-24) CHLAMYDIA SCREENING (18-24) [facility] Start: 2019 GC (GONORRHEA) SCREE CHELSY (18-24) GC (GONORRHEA) SCREENING (18-24) [facility] Start: 2019 HEPATITIS C SCREENING HEPATITIS C SC REENING [facility] Start: 2019 HIV SCREENING HIV SCREENING [facility] Start: 2017 MENINGOCOCCAL CONJUG ATE (1 - 2-dose series) MENINGOCOCCAL CONJUGATE (1 - 2-dose series) [facility] Start: 2013 PHQ-A PHQ-A [facility] Start: 2012 HPV VACCINE (1 - 2-d ose series) HPV VACCINE (1 - 2-dose series) [facility] Start: 2008 Urine microalbumin profile DTAP,TDAP,TD (1 - Tdap) [facility] End: 12-09-2020 Anorectal manometry MANOMETRY ANORECTAL Endoscopy Routine Constipation, unspecified constipation type 1 Occurrences starting 12/23/2019 until 12/09/2020 [facility] Comment on above: 1 Occurrences starti ng 12/23/2019 until 12/09/2020 Patient Education [facility] Work Phone: Patient referral [facility] Work Phone: PT ED PATIENT INFORMATION PT ED PATIENT INFORMATION Other 12/24/2019 [facility] Immunizations Immunization Date Immunization Notes Care Provider Fa cili 11-11-2022 influenza, injectabl e, quadrivalent, preservative free Navid Alondra DO Work Phone: [facility] 11-11-2022 influenza virus vacc ine, unspecified formulation Navid Alondra DO Work Phone: [facility] 05-07-2021 pneumococcal polysaccharide vaccine, 23 valent Navid Alondra DO Work Phone: [facility] 10-25-2020 influenza, injectabl e, quadrivalent, preservative free Terence Pyle Work Phone: MR-Funetqulqv-Jcqkc a 220 Work Phone: 06-09-2020 COVID-19 mRNA-1273 (Moderna) DO Ok Tyson Work Phone: [facility] 06-06-2020 Moderna COVID-19 Vac cine 100 MCG/0.5ML Intramuscular Suspension Terence Pyle Work Phone: [facility] 05-09-2020 Moderna COVID-19 Vac cine 100 MCG/0.5ML Intramuscular Suspension Terence Pyle Work Phone: NU-Rnevcosdjt-Iuhjk ands Work Phone: 10-27-2019 meningococcal B vacc ine, recombinant, OMV, adjuvanted Terence Pyle Work Phone: JK-Ojnmigvbpv-Ysjje ands Work Phone: 10-07-2019 influenza, injectabl e, quadrivalent, preservative free Navid Alondra DO Work Phone: [facility] 03-04-2018 influenza, injectabl e, quadrivalent, preservative free Treence Pyle Work Phone: HI-Wadytxhmqa-Bbyxy ands Work Phone: 03-04-2018 meningococcal B vacc ine, recombinant, OMV, adjuvanted Terence Pyle Work Phone: YV-Eadmresnnm-Nrtax ands Work Phone: 03-04-2018 meningococcal oligosaccharide (groups A, C, Y and W-135) diphtheria toxoid conjugate vaccine (MCV4O) Terence Pyle Work Phone: SU-Fphwchussd-Bqwxg ands Work Phone: 10-24-2016 Human Papillomavirus 9-valent vaccine Terence Pyle Work Phone: UB-Qbhtseacjd-Voluh ands Work Phone: 10-02-2016 diphtheria, tetanus toxoids and acellular pertussis vaccine Navid Cantu Work Phone: [facility] 09-28-2015 Human Papillomavirus 9-valent vaccine Terence Pyle Work Phone: LX-Jnhkmpmbdc-Rwhfv ands Work Phone: 09-28-2015 meningococcal oligosaccharide (groups A, C, Y and W-135) diphtheria toxoid conjugate vaccine (MCV4O) Terence Pyle Work Phone: KB-Afltjoxdnb-Blbsz ands Work Phone: 08-26-2013 hepatitis A vaccine, pediatric/adolescent dosage, 2 dose schedule Terence Pyle Work Phone: ZT-Wonjuibkiw-Rrkiy ands Work Phone: 08-26-2013 tetanus toxoid, redu deisy diphtheria toxoid, and acellular pertussis vaccine, adsorbed Terence Pyle Work Phone: CK-Stjjkrbhsf-Irfnq ands Work Phone: 01-26-2009 novel Influenza-H1N1 -09, live virus for nasal administration Terence Pyle Work Phone: CW-Xmeoiynuod-Ftshe ands Work Phone: 12-28-2008 novel influenza-H1N1 -09, preservative-free, injectable Terence Pyle Work Phone: KU-Xfywbmyxtf-Enjbs ands Work Phone: 10-02-2006 diphtheria, tetanus toxoids and acellular pertussis vaccine, unspecified formulation Terence Jimena Edenilson Work Phone: JJ-Yjrzggbqfk-Hgyhd ands Work Phone: 10-02-2006 hepatitis A vaccine, unspecified formulation Terence Pyle Work Phone: NF-Bnwkhioqvr-Eitav ands Work Phone: 10-02-2006 measles, mumps and rubella virus vaccine Terence Plye Work Phone: QY-Qnwpyhlgbr-Fgmns ands Work Phone: 10-02-2006 poliovirus vaccine, inactivated Terence Pyle Work Phone: HY-Jxqmfvqeym-Chwsx ands Work Phone: 10-02-2006 varicella virus vaccine Marito Pyle Work Phone: WV-Ubnrkiccub-Krtat ands Work Phone: 06-01-2002 diphtheria, tetanus toxoids and acellular pertussis vaccine, unspecified formulation Terence Pyle Work Phone: QG-Duvjrmlaxq-Ikben ands Work Phone: 06-01-2002 haemophilus influenz ae type b vaccine, conjugate unspecified formulation Terence Pyle Work Phone: DY-Zpnplkskgp-Tldps ands Work Phone: 06-01-2002 measles, mumps and rubella virus vaccine Terence Pyle Work Phone: AR-Dzhactyaje-Cvoxr ands Work Phone: 06-01-2002 varicella virus vaccine Marito Pyle Work Phone: OK-Xdlcruielh-Vutye ands Work Phone: 2001 diphtheria, tetanus toxoids and acellular pertussis vaccine, unspecified formulation Terence Pyle Work Phone: IY-Lsemhllenq-Ceyuw ands Work Phone: 2001 haemophilus influenz ae type b conjugate and Hepatitis B vaccine Terence Pyle Work Phone: SV-Zumzbkwuac-Qnetj ands Work Phone: 2001 pneumococcal conjuga te vaccine, 7 valent Terence Pyle Work Phone: XM-Cbmtqztkfo-Enbtz ands Work Phone: 2001 poliovirus vaccine, inactivated Terence Pyle Work Phone: EH-Vodvqvxluy-Ssaqj ands Work Phone: 2001 diphtheria, tetanus toxoids and acellular pertussis vaccine, unspecified formulation Terence Pyle Work Phone: MM-Ewhzfjnwxn-Hijwm ands Work Phone: 2001 haemophilus influenz ae type b vaccine, conjugate unspecified formulation Terence Pyle Work Phone: OO-Gwrffzatys-Vvmpr ands Work Phone: 2001 pneumococcal conjuga te vaccine, 7 valent Terence Pyle Work Phone: IE-Kgggvdtmxr-Thmxc ands Work Phone: 2001 poliovirus vaccine, inactivated Terence Pyle Work Phone: SC-Xpnyczofkg-Rmftj ands Work Phone: 2001 diphtheria, tetanus toxoids and acellular pertussis vaccine, unspecified formulation Terence Pyle Work Phone: SN-Ufxcxmkszq-Lxtdi ands Work Phone: 2001 haemophilus influenz ae type b conjugate and Hepatitis B vaccine Terence Pyle Work Phone: VP-Wbplidortb-Leufv ands Work Phone: 2001 poliovirus vaccine, inactivated Terence Pyle Work Phone: UN-Aocbtznouo-Flekc ands Work Phone: 2001 hepatitis B vaccine, pediatric or pediatric/adolescent dosage Terence Pyle Work Phone: HA-Bvbmwmbboc-Ngnmx ands Work Phone: Payers Date Payer Category Payer Self-pay [id number] 2022 Private Health Insurance [employer] [id number] 2022 Unknown [id number] 2022 Medicaid [employer] [place] [id number] 2022 Medicaid [id number] 2021 Unknown 2021 Unknown [id number] 2019 Unknown MMO MMO SUPERMED PLUS [id number] 2019-Present PPO [id number] 2001 Unknown [id number] 2.16.840.1.743527.3.579.2. 356 2001 Unknown [id number] 2.16.840.1.011658.3.579.2. 727 2001 Unknown [id number] 2.16.840.1.690928.3.579.2. 1259 2001 Unknown [id number] 2.16.840.1.511776.3.579.2. 1259 2001 Unknown [id number] 2.16.840.1.996578.3.579.2. 9 2001 Unknown [id number] 2.16.840.1.663585.3.579.2. 9 2001 Unknown [id number] 2.16.840.1.435430.3.579.2. 1259 2001 Unknown [id number] 2.16.840.1.942491.3.579.2. 1259 2001 Unknown [id number] 2.16.840.1.707372.3.579.2. 1259 2001 Unknown [id number] 2.16.840.1.166647.3.579.2. 1259 1974 Unknown [id number] 2.16.840.1.802501.3.579.2. 356 Unknown [id number] Unknown HCAP/HFA/FAP Active [id number] Unknown [id number] 2.16.840.1.644402.3.579.2. 531 Unknown [id number] 2.16840.1.365946.3.579.2. 531 Unknown [id number] 2.16.840.1.369984.3.579.2. 531 Unknown [id number] 2.16.840.1.011916.3.579.2. 531 Unknown [id number] 2.16.840.1.140891.3.579.2. 531 Unknown [id number] 2.16.840.1.667081.3.579.2. 531 Unknown [id number] 2.16.840.1.295169.3.579.2. 531 Social History Date Type Detail Facility Assertion Unknown if ever smoked MG-Pe diatrics-[employer] Work Phone: Start: 2001 Sex Assigned At Not on file [facility] Exposure to SARS-CoV -2 (event) Unable to assess [facility] Start: 10-31-2022 End: 08-06-2023 Lives with parents () Lives with parents () VR-Pimttmvewq-Odnupfwoo- Admin RBC 585 Work Phone: Start: 01-14-2021 End: 07-16-2022 Tobacco smoking status Never smoked tobacco (finding) [facility] Start: 10-31-2022 End: 08-06-2023 Sex Assigned At Female [facility] Other Start: 2001 Sex Assigned At Female F [facility] Tobacco Vaping [facility] Tobacco smoking status No Smokin g Status Entered [facility] Start: 07-16-2022 Tobacco use and exposure Smokeless tobacco non-user [facility] Start: 10-23-2023 End: 11-25-2023 Alcoholic beverage intake Lifetime non-drinker (finding) [facility] How often to you hav e a drink containing alcohol? Never [facility] How many standard drinks containing alcohol do you have on a typical day? Patient does not drink [facility] Start: 07-16-2022 Alcohol Comment caffeine intak e: 1-2 cups per day; coffee [facility] Start: 09-06-2023 [facility] Start: 04-24-2022 Gender identity Identifies as female gender (finding) [facility] Medical Equipment Procedure Code Equipment Code Equipment Origin al Text Equipment Identifier Dates Capsule endoscopy, for patency of lumen evaluation Video capsule endoscopy system [id number] FDA Start: 04-25-2021 Goals Date Patient Goal Desired Activity /State Personal health goal Functional Status Date Assessment Result Facility 09-20-2022 Functional status Patient at Baseline [facility] Work Phone: 11-25-2021 Functional Status N/A [facility] NEGATED: Highlighted row Functional performance Functional status health issues are not documented Disease YQ-Holfmstbtz-Tpfdxv nds Work Phone: Mental Status Date Assessment Result Facility 09-20-2022 Cognitive function Cognitive Sta tus Patient at Baseline [facility] Work Phone: NEGATED: Highlighted row Cognitive function [Interpretation] Cognitive status health issues are not documented Disease [facility] Work Phone: Clinical Notes 08-10-2020 to 11-25-2023 Helene Thorne LPN - 11/25/2023 2:10 PM EDT Note Date & Type Note Facility 11-25-2023 History of Presen t illness Narrative Reason for Appointment: Patient ID: Shiv Evangelista is a 23 y.o. female who presents for Routine Visit Patient presents today for Return OB appointment. MEDICATIONS Current Outpatient Medications Medication Instructions Emgality 120 mg, Subcutaneous, Once metoprolol succinate XL (TOPROL-XL) 25 mg, Oral, Daily, Do not crush or chew. ALLERGIES Allergies Allergen Reactions Wheat Other Reaction(s): Unknown PROBLEMS Active Ambulatory Problems Diagnosis Date Noted Celiac disease ([facility]) 11/01/2022 Constipation due to outlet dysfunction 02/21/2020 Current smoker 11/01/2022 Menorrhagia with irregular cycle 11/01/2022 Migraine without aura ([facility]) 11/01/2022 Mixed anxiety depressive disorder 02/21/2020 Other fatigue 02/21/2020 Pelvic floor dysfunction 11/01/2022 Sinus tachycardia 06/18/2023 Palpitations 06/18/2023 Resolved Ambulatory Problems Diagnosis Date Noted No Resolved Ambulatory Problems Past Medical History: Diagnosis Date Anxiety Constipation, unspecified constipation type Depression (CMS/HCC) HISTORY PAST MEDICAL HISTORY SOCIAL HISTORY Past Medical History: Diagnosis Date Anxiety Celiac disease (CMS/HCC) Constipation, unspecified constipation type Depression (CMS/HCC) Menorrhagia with irregular cycle Migraine without aura (CMS/HCC) Pelvic floor dysfunction Social History Tobacco Use Smoking status: Never Smokeless tobacco: Never Vaping Use Vaping status: Never Used Substance Use Topics Alcohol use: Never Comment: caffeine intake: 1-2 cups per day; coffee Drug use: Never FAMILY HISTORY Family History Problem Relation Name Age of Onset Other (anxiety) Mother Shine Evangelista Hyperthyroidism Mother Westolin Evangelista hyperactive thyroid Diabetes Mother Mandolin Evangelista Hypertension Mother Mandolin Evangelista Hyperlipidemia Mother Westolin Evangelista Mental illness Mother Shine Evangelista No Known Problems Sister Hypertension Brother Eduardo Estrada Diabetes Maternal Grandmother Magy oN Other (blood clots) Paternal Great-Grandmother SURGICAL HISTORY Past Surgical History: Procedure Laterality Date ADENOIDECTOMY 01/01/2016 EGD 09/2020 EGD 02/2021 TONSILLECTOMY 01/01/2016 VAGINAL DELIVERY 09/18/2022 REVIEW OF SYSTEMS Review of Systems: Review of Systems Constitutional: Negative. HENT: Negative. Eyes: Negative. Respiratory: Negative. Cardiovascular: Negative. Gastrointestinal: Negative. Genitourinary: Negative. Musculoskeletal: Negative. Skin: Negative. Neurological: Negative. All other systems reviewed and are negative. Hematological: Negative. Endocrine: Negative. Allergic/Immunologic: Negative. OBJECTIVE Objective: Physical Exam Constitutional: Appearance: Normal appearance. She is well-developed. Cardiovascular: Rate and Rhythm: Normal rate and regular rhythm. Pulmonary: Effort: Pulmonary effort is normal. Breath sounds: Normal breath sounds. Abdominal: General: Bowel sounds are normal. There is no distension. Palpations: Abdomen is soft. Tenderness: There is no abdominal tenderness. There is no guarding or rebound. Musculoskeletal: General: No swelling. Normal range of motion. Right lower leg: No edema. Left lower leg: No edema. Neurological: Mental Status: She is alert and oriented to person, place, and time. Skin: General: Skin is warm and dry. Psychiatric: Mood and Affect: Mood normal. Behavior: Behavior normal. Vitals and nursing note reviewed. Exam conducted with a flower cutter present. Vitals: Estimated body mass index is 25.15 kg/m as calculated from the following: Height as of 6/26/24: 5' 2 . Weight as of this encounter: 137 lb 8 oz. BP: 118/68 Patient's last menstrual period was 08/23/2023. ASSESSMENT & PLAN ICD-10-CM 1. Second trimester Z34.92 2. 13 weeks gestation of Z3A.13 POCT urinalysis dipstick manually resulted New OB: Patient presents today for 1st time obstetrics appointment with provider. Patient is currently 13w3d . Patients history has been reviewed in great detail including any potential risks. Patient stated she currently has no complaints. Expectations throughout regarding labs, ultrasounds, and appointments have been discussed with the patient in detail. It was reiterated that the patient is to drink 6-8 glasses of water a day, eat 6 small meals a day, do not consume raw or undercooked meat, and stay away from [facility]. Patient has been consulted regarding any further do's and don'ts of . Patient voiced understanding and all questions and concerns were answered. Orders Placed This Encounter Procedures POCT urinalysis dipstick manually resulted Follow Up: Patient is to return in 4 weeks for routine OB appointment. Documented by Helene Thorne LPN on behalf of: Navid Cantu DO documented in this encounter 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 She denies any complaints, but does report mild left lower calf pressure . Reports lochia is moderate, denies passing any blood clots. Denies any lightheadedness, dizziness, vision changes,chest pain, shortness of breath, nausea, vomiting, fevers/chills. Denies havinga BM but does report passing flatus. Baby is doing well and is . Patient comments: no complaints, pain well controlled, tolerating diet and flatus present [place] baby status: doing well feeding status: exclusively breast feeding OB - PN: Obj Exam Physical Exam Vital signs: Vital Signs - 8 hr 09/20/22 00:25 Temperature 98.3 F Pulse Rate 77 Respiratory Rate 16 Blood Pressure 118/76 02 Sat by Pulse Oximetry 99 Oxygen Delivery Method Room Air Constitutional Constitutional: no acute distress HEENT Exam Head: Present normocephalic and atraumatic Eye: Present EOMI and PERRL ENT: Present mucous membranes moist Neck Exam Neck: Present supple and full ROM Respiratory Exam Respiratory: Present CTA bilaterally; Absent decreased breath sounds, rhonchi, stridor, wheezes, crackles or distant breath sounds Cardiovascular Exam Cardiovascular: Present RRR; Absent S1, S2, murmur, gallop or rubs Abdominal Exam Abdominal: Present soft and normoactive bowel sounds; Absent tenderness, distended, rebound, guarding or firm Fundus: Present firm Comments: U=0. no tenderness to palpation. Extremities Exam Extremities: Present pulses intact, normal capillary refill and calf tenderness;Absent cyanosis, clubbing, edema, palpable cord, Anabel's sign, tenderness or extremity cold to touch Comments: pt reports soreness in her LLE. Skin Exam Skin: Present intact and warm; Absent cyanosis or erythema Neurological Exam Neurological: Present alert and oriented X3 Psychiatric Exam Psychiatric: Present normal affect and normal thought process Urinary Catheter Management Urethral (Burton): Cath placed during this visit: no OB - PN: Obj Data Labs 09/19/22 07:02 Labs: 09/19/22 07:02: Uncorrected WBC Count 14.2 H, MCV 86.3, MCH 28.7, MCHC 33.2, RDW13.3, Plt Count 181, MPV 8.8, Neut % (Auto) 81.0, Lymph % (Auto) 8.5, [place] % (Auto) 10.2, Eos % (Auto) 0.1, Baso % (Auto) 0.2, Nucleat RBC Rel Count 0.0, Neut # (Auto) 11.5 H, Lymph # (Auto) 1.2, [place] # (Auto) 1.5 H, Eos # (Auto) 0.0,Baso # (Auto) 0.0 Microbiology Micro Results: Microbiology 09/18/22 08:20 Urine - Voided Urine Culture - Preliminary 50,000 colonies/ml mixed bacterial skin contaminants 1 Day Assessment/Plan Assessment (1) Status post vaginal delivery: Status: Acute Plan Vaginal delivery plan (if applicable): routine care Documented By: GAL Austin 09/20/22 07 13 Signed By: <Electronically signed by GAL Abraham> 09/20/22 1044 [facility] Work Phone: [phone]) 232-401608-10-2023 Progress note Author QUIN AVENDAÑO [facility] September 19, 2022 11:03am Note Date/Time September 19, 2022 11 :03am [facility] [address] [place] [address] SOCIAL WORK MANAGER Progress Note Signed Patient: Shiv Evangelista MR#: [id number] : 2000 Acct:[id number] Age/Sex: 22 / F Adm Date: 3 Loc: Room: [address] [place] [address] Type: ADM IN Attending Dr: Yuval Pete MD Copies to: ~ Date of Service: 09/19/2022 OB - PN: Subj Subjective Post Delivery Day #: Day 1 Interval history: Patient is status post forceps assisted vaginal delivery, PPD#1. Denies any complaints. Admits to perineal soreness . Reports lochia is moderate, denies passing any blood clots. Denies any chest pain, shortness of breath, nausea, vomiting, fevers/chills. Patient comments: no complaints, pain well controlled (Patient reports that her groin is sore and the pain is a 5/10. She does not feel she needs medication forthe pain yet.), tolerating diet (has not eaten much since delivery due to nausea) and other (Patient is ambulating and urinating without difficulty. She reports a moderate amount of vaginal bleeding with no clots. She has not passed gas or had a BM since delivery. She denies lightheadedness, SOB, chest pain, calf tenderness/edema, headache, or vision changes); no flatus present [place] baby status: doing well [place] feeding status: pumping and storing OB - PN: Obj Exam Physical Exam Vital signs: Vital Signs - 8 hr 09/18/22 22:43 09/18/22 22:44 09/18/22 22:47 Temperature 99.3 F H Pulse Rate 103 H 108 H Respiratory Rate Blood Pressure 111/56 L 106/52 L 02 Sat by Pulse Oximetry 09/18/22 23:03 09/18/22 23:18 09/18/22 23:32 Temperature Pulse Rate 102 H 85 85 Respiratory Rate Blood Pressure 115/68 112/57 L 110/55 L 02 Sat by Pulse Oximetry 09/18/22 23:47 09/19/22 00:02 09/19/22 00:18 Temperature Pulse Rate 78 85 91 H Respiratory Rate Blood Pressure 109/55 L 113/56 L 102/53 L 02 Sat by Pulse Oximetry 09/19/22 00:33 09/19/22 00:47 09/19/22 01:02 Temperature Pulse Rate 89 88 98 H Respiratory Rate Blood Pressure 105/65 97/57 L 102/55 L 02 Sat by Pulse Oximetry 09/19/22 01:17 09/19/22 01:32 09/19/22 02:45 Temperature 98.1 F Pulse Rate 91 H 81 87 Respiratory Rate Blood Pressure 102/56 L 104/58 L 119/68 02 Sat by Pulse Oximetry 09/18/22 22:55 09/18/22 23:10 09/18/22 23:25 Temperature Pulse Rate Respiratory Rate 16 16 16 Blood Pressure 02 Sat by Pulse Oximetry 09/18/22 23:40 09/18/22 23:55 09/19/22 00:10 Temperature 98.8 F Pulse Rate Respiratory Rate 16 16 16 Blood Pressure 02 Sat by Pulse Oximetry 09/19/22 00:25 09/19/22 00:40 09/19/22 01:10 Temperature Pulse Rate Respiratory Rate 16 16 16 Blood Pressure 02 Sat by Pulse Oximetry 09/19/22 01:40 09/19/22 02:40 09/19/22 03:40 Temperature 99.3 F H Pulse Rate 93 H Respiratory Rate 16 16 16 Blood Pressure 119/71 02 Sat by Pulse Oximetry 93 L 09/19/22 04:40 09/19/22 05:49 Temperature 98.9 F Pulse Rate 90 89 Respiratory Rate 16 16 Blood Pressure 120/62 115/70 02 Sat by Pulse Oximetry 98 98 Constitutional Constitutional: no acute distress and cooperative Comments: patient is tired but able to answer questions. She appears comfortable Respiratory Exam Respiratory: Present CTA bilaterally; Absent accessory muscle use, decreased breath sounds, rhonchi, stridor, wheezes or crackles Cardiovascular Exam Cardiovascular: Present RRR; Absent murmur, gallop or rubs Abdominal Exam Abdominal: Present soft; Absent normoactive bowel sounds (hypoactive bowel sounds), tenderness or distended Fundus: Present firm Comments: U=0 Extremities Exam Extremities: Present pulses intact; Absent cyanosis, clubbing, edema, calf tenderness, Anabel's sign or extremity cold to touch Skin Exam Skin: Present intact; Absent cyanosis or jaundice Psychiatric Exam Psychiatric: Present normal affect and normal thought process Urinary Catheter Management Urethral (Burton): Cath placed during this visit: no OB - PN: Obj Data Labs 09/18/22 14:25 Labs: 09/18/22 17:52: Blood Type Recheck A Positive 09/18/22 14:25: Blood Type A Positive 09/18/22 14:25: RPR w/Rflx to Titer Non reactive 09/18/22 14:25: Uncorrected WBC Count 10.3, MCV 85.7, MCH 29.0, MCHC 33.8, RDW 13.2, Plt Count 195, MPV 8.9, Neut % (Auto) 77.8, Lymph % (Auto) 11.8, [place] % (Auto) 9.3, Eos % (Auto) 0.5, Baso % (Auto) 0.6, Nucleat RBC Rel Count 0.1, Neut# (Auto) 8.0 H, Lymph # (Auto) 1.2, [place] # (Auto) 1.0 H, Eos # (Auto) 0.1, Baso # (Auto) 0.1 09/18/22 08:20: Urine Opiates Screen Negative, Ur Barbiturates Screen Negative, Ur Phencyclidine Scrn Negative, Ur Amphetamines Screen Negative, U Benzodiazepines Scrn Negative, Urine Cocaine Screen Negative 09/18/22 08:20: Urine Color Yellow, Urine Appearance Cloudy A, Urine pH 7.0, Ur Specific Abbot 1.004, Urine Protein Negative, Urine Glucose (UA) Normal, UrineKetones Negative, Urine Occult Blood Trace H, Urine Nitrite Negative, Urine Bilirubin Negative, Urine Urobilinogen Normal, Ur Leukocyte Esterase 4+ H, UrineRBC 0-1, Urine WBC 20-49 H, Ur Squamous Epith Cells 10-19 H, Urine Bacteria 2+ H, Hyaline Casts None seen Assessment/Plan Assessment (1) Status post vaginal delivery: Status: Acute Plan Vaginal delivery plan (if applicable): routine care Documented By: QUIN AVENDAÑO DO 09/19/22 0642 Signed By: <Electronically signed by QUIN AVENDAÑO DO> 09/19/22 1103 [facility] Work Phone: [phone]) 727-334808-09-2023 History and physical note Author YUVAL PETE [facility] September 18, 2022 9:22pm Note Date/Time September 18, 2022 9:2 2pm [facility] [address] [place] [address] SOCIAL WORK MANAGER History & Physical Signed Patient: Shiv Evangelista MR#: [id number] : 2000 Acct:[id number] Age/Sex: 22 / F Adm Date: 3 Loc: Room: [address] [place] [address] Type: ADM IN Attending Dr: Yuval Pete MD Copies to: MD Ok BOYD DO~ Date of Service: 09/18/2022 HPI History of Present Illness Chief complaint: I'm cramping HPI: Pt is a healthy primigravida at term. She presents to L+D complaining of contractions. 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 Para: 0 : 0 : 0 Livin LMP Date: 12/16/21 EDC by Ultrasound: 09/29/22 Family History (Updated 09/18/22 @ 15:54 by Mariangel Miller RN) Grandparent AA (aortic aneurysm) Myocardial infarction Social History Smoking Status: Never Smoked Tobacco Use: Denies Alcohol Use: Denies Drug Use: Denies Allergies & Medications Medications and Allergies Allergies wheat Allergy (Verified 09/18/22 08:27) Abdominal Pain Home Medications [id number]-[id number] 1 mg tablet tab PO 09/18/22 [History] Active Medications Carboprost Tromethamine (Carboprost Tromethamine 250 Mcg/Ml Vial) 250 mcg IM PRN PRN PRN Reason: Bleeding Stop: 09/19/22 14:14 Lactated Ringer's (Lactated Ringers) 1,000 mls @ 150 mls/hr IV .Q6H40M LASHA Stop: 09/18/23 14:14 Last Admin: 09/18/22 16:10 Dose: 150 mls/hr Oxytocin (Pitocin/Lr) 30 unit in 500 mls @ 2 mls/hr IV .Q24H [facility]; Protocol Stop: 09/18/23 14:14 Last Titration: 09/18/22 18:55 Dose: 16 milliunit/min, 16 mls/hr Lidocaine HCl (Lidocaine 1% 50 Ml Vial) 0 ml INFILTRATN PRN PRN PRN Reason: Local Anesthetics Stop: 09/19/22 14:14 Methylergonovine Maleate (Methylergonovine Maleate 0.2 Mg/Ml Ampul) 0.2 mg IM PRN PRN PRN Reason: Bleeding Stop: 09/19/22 14:14 Nalbuphine HCl (Nalbuphine 10 Mg/Ml Ampul) 5 mg IV-PUSH Q3H PRN PRN Reason: Pain Scale 1 - 3 Stop: 09/18/23 14:14 Nalbuphine HCl (Nalbuphine 10 Mg/Ml Ampul) 10 mg IV-PUSH Q3H PRN PRN Reason: Pain Scale 4 - 7 Stop: 09/18/23 14:14 Oxytocin (Oxytocin 10 Unit/Ml Vial) 20 unit IV ONCE PRN PRN Reason: Intraop Sodium Chloride (Sodium Chloride 0.9 % 10 Ml Syringe) 0 ml IV-PUSH PRN PRN PRN Reason: Flush Stop: 09/18/23 14:14 Last Admin: 09/18/22 14:47 Dose: 10 ml OB - Physical Exam Vital Signs Vital Signs: Temp 97.3 F L 09/18/22 21:13 Pulse 109 H 09/18/22 21:18 Resp 18 09/18/22 19:00 BP 122/88 09/18/22 21:18 Pulse Ox 99 09/18/22 15:45 Constitutional Constitutional: no acute distress HEENT Exam Head: Present normocephalic and atraumatic Respiratory Exam Respiratory: Absent respiratory distress Abdominal Exam Abdominal: Present soft; Absent rebound or guarding Detailed Labor and Delivery Exam Dilatation (cm): 3.5 cm Effacement (%): 70% Cervix: Mid Position Station: Minus 3 Membrane Status: Intact Heart Rate Baseline (Fetus A): 135 Heart Rate Decelerations (Fetus A): Absent Heart Rate Variability (Fetus A): Moderate (6-25 bpm) Contraction Pattern: Irritability OB Results Laboratory Results - Last 48 hrs. 09/18/22 17:52: Blood Type Recheck A Positive 09/18/22 14:25: Blood Type A Positive 09/18/22 14:25: Corrected WBC 10.3, Uncorrected WBC Count 10.3, RBC 3.72, Hgb 10.8 L, Hct 31.8 L, MCV 85.7, MCH 29.0, MCHC 33.8, RDW 13.2, Plt Count 195, MPV 8.9, Neut % (Auto) 77.8, Lymph % (Auto) 11.8, [place] % (Auto) 9.3, Eos % (Auto) 0.5, Baso % (Auto) 0.6, Nucleat RBC Rel Count 0.1, Neut # (Auto) 8.0 H, Lymph # (Auto) 1.2, [place] # (Auto) 1.0 H, Eos # (Auto) 0.1, Baso # (Auto) 0.1 09/18/22 08:20: Urine Opiates Screen Negative, Ur Barbiturates Screen Negative, Ur Phencyclidine Scrn Negative, Ur Amphetamines Screen Negative, U Benzodiazepines Scrn Negative, Urine Cocaine Screen Negative 09/18/22 08:20: Urine Color Yellow, Urine Appearance Cloudy A, Urine pH 7.0, Ur Specific Abbot 1.004, Urine Protein Negative, Urine Glucose (UA) Normal, Urine Ketones Negative, Urine Occult Blood Trace H, Urine Nitrite Negative, Urine Bilirubin Negative, Urine Urobilinogen Normal, Ur Leukocyte Esterase 4+ H, Urine RBC 0-1, Urine WBC 20-49 H, Ur Squamous Epith Cells 10-19 H, Urine Bacteria 2+ H, Hyaline Casts None seen Microbiology - Last 72 hours 09/18/22 08:20 Urine - Voided Urine Culture - Pending Assessment/Plan (1) 38 weeks gestation of : Code(s): Z3A.38 - 38 weeks gestation of Status: Acute Plan Admit in anticipation of vaginal delivery Documented By: YUVAL PETE MD 09/18/222117 Signed By: <Electronically signed by MD YUVAL PETE> 09/18/222121 [facility] Work Phone: [phone]) 687-247408-09-2023 [facility] Hospital Discharge instructions Patient Education 11/25/2021 23:47:17 Migraine Headache Migraine Headache A migraine headache is an intense, throbbing pain on one side or both sides of the head. Migraine headaches may also cause other symptoms, such as nausea, vomiting, and sensitivity to light and noise. A migraine headache can last from 4 hours to 3 days. Talk with your doctor about what things may bring on (trigger) your migraine headaches. What are the causes? The exact cause of this condition is not known. However, a migraine may be caused when nerves in the brain become irritated and release chemicals that cause inflammation of blood vessels. This inflammation causes pain. This condition may be triggered or caused by: Drinking alcohol. Smoking. Taking medicines, such as: ?Medicine used to treat chest pain (nitroglycerin). ? control pills. ?Estrogen. ?Certain blood pressure medicines. Eating or drinking products that contain nitrates, glutamate, aspartame, or tyramine. Aged cheeses,chocolate, or caffeine may also be triggers. Doing physical activity. Other things that may trigger a migraine headache include: Menstruation. . Hunger. Stress. Lack of sleep or too much sleep. Weather changes. Fatigue. What increases the risk? The following factors may make you more likely to experience migraine headaches: Being a certain age. This condition is more common in people who are 25 55 years old. Being female. Having a family history of migraine headaches. Being . Having a mental health condition, such as depression or anxiety. Being obese. What are the signs or symptoms? The main symptom of this condition is pulsating or throbbing pain. This pain may: Happen in any area of the head, such as on one side or both sides. Interfere with daily activities. Get worse with physical activity. Get worse with exposure to bright lights or loud noises. Other symptoms may include: Nausea. Vomiting. Dizziness. General sensitivity to bright lights, loud noises, or smells. Before you get a migraine headache, you may get warning signs (an aura). An aura may include: Seeing flashing lights or having blind spots. Seeing bright spots, halos, or zigzag lines. Having tunnel vision or blurred vision. Having numbness or a tingling feeling. Having trouble talking. Having muscle weakness. Some people have symptoms after a migraine headache (postdromal phase), such as: Feeling tired. Difficulty concentrating. How is this diagnosed? A migraine headache can be diagnosed based on: Your symptoms. A physical exam. Tests, such as: ?CT scan or an MRI of the head. These imaging tests can help rule out other causes of headaches. ?Taking fluid from the spine (lumbar puncture) and analyzing it (cerebrospinal fluid analysis, or CSF analysis). How is this treated? This condition may be treated with medicines that: Relieve pain. Relieve nausea. Prevent migraine headaches. Treatment for this condition may also include: Acupuncture. Lifestyle changes like avoiding foods that trigger migraine headaches. Biofeedback. Cognitive behavioral therapy. Follow these instructions at home: Medicines Take bxub-jdg-aewbjtd and prescription medicines only as told by your health care provider. Ask your health care provider if the medicine prescribed to you: ?Requires you to avoid driving or using heavy machinery. ?Can cause constipation. You may need to take these actions to prevent or treat constipation: ?Drink enough fluid to keep your urine pale yellow. ?Take gcki-sua-rqhggat or prescription medicines. ?Eat foods that are high in fiber, such as beans, whole grains, and fresh fruits and vegetables. ?Limit foods that are high in fat and processed sugars, such as fried or sweet foods. Lifestyle Do not drink alcohol. Do not use any products that contain nicotine or tobacco, such as cigarettes, e- cigarettes, and chewing tobacco. If you need help quitting, ask your health care provider. Get at least 8 hours of sleep every night. Find ways to manage stress, such as meditation, deep breathing, or yoga. General instructions Keep a journal to find out what may trigger your migraine headaches. For example, write down: ?What you eat and drink. ?How much sleep you get. ?Any change to your diet or medicines. If you have a migraine headache: ?Avoid things that make your symptoms worse, such as bright lights. ?It may help to lie down in a dark, quiet room. ?Do not drive or use heavy machinery. ?Ask your health care provider what activities are safe for you while you are experiencing symptoms. Keep all follow-up visits as told by your health care provider. This is important. Contact a health care provider if: You develop symptoms that are different or more severe than your usual migraine headache symptoms. You have more than 15 headache days in one month. Get help right away if: Your migraine headache becomes severe. Your migraine headache lasts longer than 72 hours. You have a fever. You have a stiff neck. You have vision loss. Your muscles feel weak or like you cannot control them. You start to lose your balance often. You have trouble walking. You faint. You have a seizure. Summary A migraine headache is an intense, throbbing pain on one side or both sides of the head. Migraines may also cause other symptoms, such as nausea, vomiting, and sensitivity to light and noise. This condition may be treated with medicines and lifestyle changes. You may also need to avoid certain things that trigger a migraine headache. Keep a journal to find out what may trigger your migraine headaches. Contact your health care provider if you have more than 15 headache days in a month or you develop symptoms that are different or more severe than your usual migraine headache symptoms. This information is not intended to replace advice given to you by your health care provider. Make sure you discuss any questions you have with your health care provider. Document Released: 01/27/2006 Document Revised: 05/21/2019 Document Reviewed: 03/11/2019 [employer] Patient Education 2020 [employer]. Follow Up Care 11/25/2021 18:58:56 With:OK TYSON Address: [address] [place] [address] [place], [facility] [address]- Business (1) When:Within 3 Day(s) [facility]10-16-2022 Evaluation + Plan noteExtracted from: Title:ED Note Author:Rayray Aquino DO Date :11/25/21 Migraine headache (G43.909: Migraine, unspecified, not intractable, without status migrainosus) Orders: diphenhydrAMINE, 25 mg = 0.5 mL, Injection, IV Push, Once, Stop date 11/25/21 22:05:00 EDT, STAT, Start date 11/25/21 22:05:00 EDT, 11/25/21 22:05:00 EDT ketorolac, 15 mg = 1 mL, Injection, IV Push, Once, Stop date 11/25/21 22:06:00 EDT, STAT, Start date 11/25/21 22:06:00 EDT, 11/25/21 22:06:00 EDT metoclopramide, 10 mg = 2 mL, Injection, IV Push, Once, Stop date 11/25/21 22:05:00 EDT, STAT, Start date 11/25/21 22:05:00 EDT, 11/25/21 22:05:00 EDT Sodium Chloride 0.9% intravenous solution, 1,000 mL, Soln-IV, IV, Once, Stop date 11/25/21 22:06:00 EDT, STAT, Start date 11/25/21 22:06:00 EDT, mL/hr, Infuse over 61, minute(s) [facility]08-29-2022 NoteHNO ID: [id number] Author: Lynn Potts, PT Service: ? Author Type: Physical Therapist Type: Progress Notes Filed: 10/08/2021 12:15 PM Note Text: 10/08/2021 [facility] REHABILITATION AND SPORTS THERAPY PHYSICAL THERAPY DISCONTINUANCE OF CARE Plan of Care Period: Start of Care Date: 11/09/20 Last Visit Date: 11/13/2020 Therapy Program: The following is a summary of the interventions provided for this episode of care; Therapeutic exercise, Neuromuscular re-education, Manual therapy, Therapeutic activities, Self-fci management, and Patient/Family/Caregiver Education Assessment: Based on most recent visit, patient was progressing as expected toward functional goals based on home exercise program compliance, pain levels, and documented subjective information on progress. Unable to formally assess goal achievement, as patient has not returned to therapy or scheduled additional follow-up appointments. Reason for Discontinuation of Care: Patient has not returned to therapy or scheduled additional follow-up appointments. [facility]05-24-2022 Evaluation note* Encounter Date Diagnosis Assessment Notes Treatment Notes Treatment Clinical Notes June, Small intestinal bacterial overgrowth (SIBO) (ICD-10 - K63.89) [employer] Other 05-02-2022 Evaluation note* Encounter Date Diagnosis Assessment Notes Treatment Notes Treatment Clinical Notes June, Small intestinal bacterial overgrowth (SIBO) (ICD-10 - K63.89) [facility] Other 04-08-2022 Hospital Discharge instructions Patient Education 05/17/2021 22:58:49 Hypokalemia Hypokalemia Hypokalemia means that the amount of potassium in the blood is lower than normal. Potassium is a chemical (electrolyte) that helps regulate the amount of fluid in the body. It also stimulates muscle tightening (contraction) and helps nerves work properly. Normally, most of the body's potassium is inside cells, and only a very small amount is in the blood. Because the amount in the blood is so small, minor changes to potassium levels in the blood can be life-threatening. What are the causes? This condition may be caused by: Antibiotic medicine. Diarrhea or vomiting. Taking too much of a medicine that helps you have a bowel movement (laxative)can cause diarrhea and lead to hypokalemia. Chronic kidney disease (CKD). Medicines that help the body get rid of excess fluid (diuretics). Eating disorders, such as bulimia. Low magnesium levels in the body. Sweating a lot. What are the signs or symptoms? Symptoms of this condition include: Weakness. Constipation. Fatigue. Muscle cramps. Mental confusion. Skipped heartbeats or irregular heartbeat (palpitations). Tingling or numbness. How is this diagnosed? This condition is diagnosed with a blood test. How is this treated? This condition may be treated by: Taking potassium supplements by mouth. Adjusting the medicines that you take. Eating more foods that contain a lot of potassium. If your potassium level is very low, you may need to get potassium through an IV and be monitored in the hospital. Follow these instructions at home: Take kdgn-wmv-deiaztt and prescription medicines only as told by your health care provider. This includes vitamins and supplements. Eat a healthy diet. A healthy diet includes fresh fruits and vegetables, whole grains, healthy fats, and lean proteins. If instructed, eat more foods that contain a lot of potassium. This includes: ?Nuts, such as peanuts and pistachios. ?Seeds, such as sunflower seeds and pumpkin seeds. ?Peas, lentils, and palmer beans. ?Whole grain and bran cereals and breads. ?Fresh fruits and vegetables, such as apricots, avocado, bananas, cantaloupe, kiwi, oranges, tomatoes, asparagus, and potatoes. ?Dunklin juice. ?Tomato juice. ?Red meats. ?Yogurt. Keep all follow-up visits as told by your health care provider. This is important. Contact a health care provider if you: Have weakness that gets worse. Feel your heart pounding or racing. Vomit. Have diarrhea. Have diabetes (diabetes mellitus) and you have trouble keeping your blood sugar (glucose) in your target range. Get help right away if you: Have chest pain. Have shortness of breath. Have vomiting or diarrhea that lasts for more than 2 days. Faint. Summary Hypokalemia means that the amount of potassium in the blood is lower than normal. This condition is diagnosed with a blood test. Hypokalemia may be treated by taking potassium supplements, adjusting the medicines that you take, or eating more foods that are high in potassium. If your potassium level is very low, you may need to get potassium through an IV and be monitored in the hospital. This information is not intended to replace advice given to you by your health care provider. Make sure you discuss any questions you have with your health care provider. Document Released: 01/27/2006 Document Revised: 09/09/2018 Document Reviewed: 09/09/2018 [employer] Patient Education 2020 [employer]. 05/17/2021 22:58:45 Abnormal Uterine Bleeding, Zzzi-cy-Wjea Abnormal Uterine Bleeding Abnormal uterine bleeding means bleeding more than usual from your uterus. It can include: Bleeding between periods. Bleeding after sex. Bleeding that is heavier than normal. Periods that last longer than usual. Bleeding after you have stopped having your period (menopause). There are many problems that may cause this. You should see a doctor for any kind of bleeding that is not normal. Treatment depends on the cause of the bleeding. Follow these instructions at home: Watch your condition for any changes. Do not use tampons, douche, or have sex, if your doctor tells you not to. Change your pads often. Get regular well-woman exams. Make sure they include a pelvic exam and cervical cancer screening. Keep all follow-up visits as told by your doctor. This is important. Contact a doctor if: The bleeding lasts more than one week. You feel dizzy at times. You feel like you are going to throw up (nauseous). You throw up. Get help right away if: You pass out. You have to change pads every hour. You have belly (abdominal) pain. You have a fever. You get sweaty. You get weak. You passing large blood clots from your vagina. Summary Abnormal uterine bleeding means bleeding more than usual from your uterus. There are many problems that may cause this. You should see a doctor for any kind of bleeding that is not normal. Treatment depends on the cause of the bleeding. This information is not intended to replace advice given to you by your health care provider. Make sure you discuss any questions you have with your health care provider. Document Released: 11/24/2009 Document Revised: 01/21/2017 Document Reviewed: 01/21/2017 [employer] Patient Education 2020 [employer]. Follow Up Care 05/17/2021 20:46:59 With:Sirisha MURPHY, ALICIA Bills Address: [address] [place] [id number]- When:2 to 4 days With:TERENCE PYLE MD Address: [address] [place] [id number]- When:05/20/2021 [facility]04-07-2022 Evaluation + Plan noteExtracted from: Title:ED Note Author:Mariana Steinberg PA-C Date :05/17/21 1. Dysfunctional uterine ble eding (N93.8: Other specified abnormal uterine and vaginal bleeding) Ordered: meclofenamate, 100 mg = 1 cap(s), Oral, TID, X 5 day(s), # 15 cap(s), Refills(s) 0, Pharmacy: [id number], 157.5, cm, 05/17/21 20:52:00 EDT, Height/Length Dosing, 47.8, kg, 05/17/21 20:52:00 EDT, Weight Dosing 2. Hypokalemia (E87.6: Hypokalemia) Ordered: meclofenamate, 100 mg = 1 cap(s), Oral, TID, X 5 day(s), # 15 cap(s), Refills(s) 0, Pharmacy: [facility] [id number] [facility], 157.5, cm, 05/17/21 20:52:00 EDT, Height/Length Dosing, 47.8, kg, 05/17/21 20:52:00 EDT, Weight Dosing Orders: potassium chloride, 40 mEq = 2 tab(s), Tab-ER, Oral, Once, Stop date 05/17/21 21:55:00 EDT, STAT, Start date 05/17/21 21:55:00 EDT, 05/17/21 21:55:00 EDT Automated Diff Basic Metabolic Panel CBC w/ Auto Diff eGFR U Beta Hcg Qual UA With Cult Reflex Urine Culture Diagnostic Tests Pending * Urine Culture 05/17/21 [facility]03-18-2022 Evaluation note* Encounter Date Diagnosis Assessment Notes Treatment Notes Treatment Clinical Notes Apr, Abdominal pain (ICD-10 - R10.9) [employer] Other 02-23-2022 Evaluation note* Encounter Date Diagnosis Assessment Notes Treatment Notes Treatment Clinical Notes Mar, Contact with and (suspected) exposure to other viral communicable diseases (ICD-10 - Z20.828) I suspect your symptoms are viral in origin. Your rapid Covid test was negative today, however, rapid Covid tests are not 100% accurate. We are going to send you for a covid PCR test. Drink plenty of fluids and get plenty of rest. If you develop chest pain, shortness of breath, or feel like you are going to pass out, go to the ER. [employer] Other 02-10-2022 Chief complaint Narrative - Reported* An interactive audio and video telecommunication system which permits real time communications between the patient (at the originating site) and provider (at the distant site) was utilized to providethis telehealth service. * Verbal consent was requested and obtained from SHIV EVANGELISTA on this date, 03/22/2021 03:30 PM , for atelehealth visit. * Follow up migraines * Accompanied by alone. WO-Napetpbaba-Yrezz[address] Work Phone: [phone] 458-934202-10-2022 Chief complaint Narrative - Reported* An interactive audio and video telecommunication system which permits real time communications between the patient (at the originating site) and provider (at the distant site) was utilized to providethis telehealth service. * Verbal consent was requested and obtained from SHIV EVANGELISTA on this date, 03/22/2021 03:30 PM , for atelehealth visit. * Follow up migraines * Accompanied by alone. SS-Avuqjjxlao-Whcwrotsa-Admin RBC [address] Work Phone: [phone] 394-173702-01-2022 History of Present illness Narrative* Shiv is a 21 year old young woman with POTS, anxiety and headaches. She was seen last in March. At that time, headaches had increased. She was changed to Aimovig. * Since the change to AImovig, she has not had a change in frequency but better in severity. She feels that they are secondary to final coming up. 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 She has 18 months left. * Mood has been all over the place and has been like that through the school year. * Her psychiatrist has her on Prozac, 40 mg daily without much change in mood. No thoughts of self harm She increased the dose 6 weeks ago. 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 She will be at [employer]. * She has also been diagnosed IGA deficiency, celiac and fructose intolerance. She denies any other autoimmune issues. She has another rheumatology appt at the end of the month. She just got the pneumonia vaccine. * Sleep: Hydroxyzine helps but causes hangover sleepiness. She does not like the way that she feels when taking it. * Weight is 107 down from 123. * Mood is better than it was 2 months ago. * Panic attacks are there but manageable with all the changes--new job, new apartment, academics. * Dizziness is still there, maybe slightly better, Midodrine was started and she just started on 5 mgTID. NB-Fcfceckvh-Xatvfimq H DO Work Phone: [phone]) [phone] History of Present illness Narrative* Shiv is a 21 year old young woman with POTS, anxiety and headaches. She was seen last in March. At that time, headaches had increased. She was changed to Aimovig. * Since the change to AImovig, she has not had a change in frequency but better in severity. She feels that they are secondary to final coming up. 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 She has 18 months left. * Mood has been all over the place and has been like that through the school year. * Her psychiatrist has her on Prozac, 40 mg daily without much change in mood. No thoughts of self harm She increased the dose 6 weeks ago. 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 She will be at [employer]. * She has also been diagnosed IGA deficiency, celiac and fructose intolerance. She denies any other autoimmune issues. She has another rheumatology appt at the end of the month. She just got the pneumonia vaccine. * Sleep: Hydroxyzine helps but causes hangover sleepiness. She does not like the way that she feels when taking it. * Weight is 107 down from 123. * Mood is better than it was 2 months ago. * Panic attacks are there but manageable with all the changes--new job, new apartment, academics. * Dizziness is still there, maybe slightly better, Midodrine was started and she just started on 5 mgTID. 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 Jones Feb, Constipation (ICD-10 - K59.00) Increase Linzess to 145mcg daily [employer] Other 01-06-2022 Evaluation note* Encounter Date Diagnosis Assessment Notes Treatment Notes Treatment Clinical Notes Feb, Small intestinal bacterial overgrowth (SIBO) (ICD-10 - K63.89) [employer] Other 01-03-2022 Evaluation note* Encounter Date Diagnosis Assessment Notes Treatment Notes Treatment Clinical Notes Feb, Contact with and (suspected) exposure to other viral communicable diseases (ICD-10 - Z20.828) Advised patient that rapid COVID antigen test today was negative. Encouraged supportive care including increasing rest, fluids, Tylenol/Motrin, OTC cold medications as directed on packaging. Patient to follow up with PCP if symptoms do not improve for COVID PCR test. Encouraged social distancing, good hand hygiene, mask wearing. Immediate evaluation in ER for shortness of breath, difficulty breathing, chest pain, fevers not breaking with antipyretic, any new or concerning symptoms listed on handout. Patient verbalizes understanding and is agreeable with treatment plan Feb, Other Additional time spent conducting pre-visit phone call, screening for symptoms, instructions on social distancing, application and removal of PPE, and cleaning of examination room, equipment and supplies was preformed. Patient education given for testing methodology and results. Patient care instructions given in writting by [facility] document [employer] Other 11-04-2021 Evaluation note* Encounter Date Diagnosis Assessment Notes Treatment Notes Treatment Clinical Notes Dec, Celiac disease/sprue (ICD-10 - K90.0) Dec, Constipation (ICD-10 - K59.00) Dec, Other Summary of Visit: (A) Low Fructose Nutriiton Therapy (B) Reviewed Gluten Free Nutrition Therapy (C) Log food and symptoms [employer] Other 11-03-2021 Evaluation note* Encounter Date Diagnosis Assessment Notes Treatment Notes Treatment Clinical Notes Dec, Contact with and (suspected) exposure to other viral communicable diseases (ICD-10 - Z20.828) covid test neg, see above tx plan. Dec, Viral URI (ICD-10 - J06.9) Informed pt that covid was negative. Will treat as viral at this time based on PE findings. Therefore, no abx is indicated for tx. Rx meds as directed. Take steroid with food. Use inhaler PRN. Supportive care as directed. Rest and push fluids. Pt denied school or work note. Pt to take otc antipyretic prn for fever and aches. If coughing patient may take otc cough medicine. Pt to f/u with pcp as needed for persistent or recurrent sx. Pt understood and agreed to treatment plan. Dec, Other Additional time spent conducting pre-visit phone call, screening for symptoms, instructions on social distancing, application and removal of PPE, and cleaning of examination room, equipment and supplies was preformed. Patient education given for testing methodology and results. Patient care instructions given in writting by [employer] [facility] document. [facility] Other 10-10-2021 Evaluation note* Encounter Date Diagnosis Assessment Notes Treatment Notes Treatment Clinical Notes Nov, Contact with and (suspected) exposure to other viral communicable diseases (ICD-10 - Z20.828) Nov, Sore throat (ICD-10 - J02.9) Nov, Other infective acute otitis externa of both ears (ICD-10 - H60.393) Use drops as directed. May use cotton ball to keep drops in place. Do not use any qtips or any other objects to clean out ears. Do not recommend swimming or baths while treatment going on; may shower. Nov, Other Additional time spent conducting pre-visit phone call, screening for symptoms, instructions on social distancing, application and removal of PPE, and cleaning of examination room, equipment and supplies was preformed. Patient education given for testing methodology and results. Patient care instructions given in writting by [employer] document. [employer] Other 10-04-2021 NoteHNO ID: [id number] Author: Lynn Potts PT Service: ? Author Type: Physical Therapist Type: Progress Notes Filed: 11/13/2020 3:32 PM Note Text: Episode Visit Count: 2 Therapist That Will Oversee The Plan Of Care: Lynn Potts Start of Care Date: 11/09/20 Onset Date: 11/10/19 Patient Identified by Name and Date of : Yes REHABILITATION AND SPORTS THERAPY PHYSICAL THERAPY TREATMENT NOTE ASSESSMENT: Shiv Evangelista demonstrated minimal improvement in symptoms and pain overall. Is going more regularly in terms of BM. Needs more work on lengthening, work on posture and deep breathing / relaxation. PLAN FOR NEXT VISIT: Continue with manual therapy, PF relaxation, deep breathing SUBJECTIVE: Patient Reason for Visit: Didn't do BFB at home wiht mirror or finger. Did do stretching. Had one BM yesterday, larger bowel movement but hard. Butt is sore after BM b/c its big. Not sore after first visit. Pain: Pain Pain Level: 7 Pain Location: Abdomen Description: Pressure Frequency: Continuous Post Treatment Pain Post Treatment Pain Level: No Change OBJECTIVE MEASURES WITH LEVEL OF FUNCTION: Pelvic Floor Water : 4-6 Bowel Aides / Supplements: linzess and miralax 1x per day Pelvic Floor Muscle Assessment Consent for pelvic assessment/testing and treatment: Patient was educated regarding pelvic floor physical therapy assessment/treatment which may include pelvic floor and girdle muscle assessment externally or internally (vaginal or rectal approach).;Patient verbalized consent for the above treatment approaches today. Patient understands they have control of the treatment and an opportunity to stop treatment at any time. Pelvic Floor Muscle Assessment: Muscle Dynamics (performed extenrally today) Recruitment of pelvic floor muscles: Uncoordinated Range of Motion: Decreased Ability to Lengthen pelvic floor: Difficulty at first, but improves with cueing and practice Non-leisa pelvic floor : Present Non-relaxing pelvic floor : Present Pelvic Floor Manual Assessment External Pelvic Region Tenderness/ Hyperactivity - Trunk: Upper abdominals;Rectus abdominus Upper abdominals: Bilateral (R>L mod) Lower abdominals: Bilateral (R>L miod) Suprapubic: Bilateral (min) Rectus abdominus: Bilateral (mod) TREATMENT: Manual Therapy: 1: See above 2: Colon massage 3: Tight R side thorughout 4: Educated on how to do at home Skilled Intervention: Manual skills to improve joint mobility, ROM, and decrease pain. Utilized anatomy knowledge of the therapist, and assessment of patient's response to intervention. Neuromuscular Re-Education: 1: Lengteing education - needs ongoing work on this 2: Some sort of BFB training at home 3: Relaxation training 4: Deep breathing 5: Posture, avoid position Skilled Intervention: Patient education as noted. Billing Neuromuscular Re-Education Treatment Minutes: 25 Manual TherapyTreatment Minutes: 20 Total Treatment Time Minutes (timed and untimed codes) : 45 Lynn Potts, [facility]30-[facility]21 NoteHNO ID: [id number] Author: Alexandra Suarez, PT Service: ? Author Type: Physical Therapist Type: Progress Notes Filed: 11/09/2020 2:30 PM Note Text: Episode Visit Count: 1 Therapist That Will Oversee The Plan Of Care: Alexandra Howell Start of Care Date: 11/09/20 Onset Date: 11/10/19 Patient Identified by Name and Date of : Yes REHABILITATION AND SPORTS THERAPY PHYSICAL THERAPY EVALUATION PLAN OF CARE: Assessment: Shiv Evangelista is a 20 year old female seen today for constipation ongoing for over a year. Patient presents with impaired pelvic floor muscle dynamics, increased muscle spasm internally and/or externally, poor bowel/toileting habits, decreased fiber intake, decreased fluid intake, high level of anxiety and lack of home exercise program which are all contributing to patient's constipation. Patient may benefit from continuation of skilled physical therapy services to address these impairments and limitations to improve quality of life. Prognosis: Fair Fair due to: clinical presentation;chronic nature of impairments;decreased motivation;limited tolerance to activity Goals for Episode of Care: created on 11/09/20 through 01/08/21 Pelvic Pain: Patient to demonstrate independence in HEP Patient displays increased flexibility in hips to allow for decrease pain Patient displays decreased muscle spasms in levator and puborectalis to allow for decreased pain levels and ability to lengthening pelvic floor for bowel movement. Patient demonstrates ability to perform diaphragmatic breathing and relaxation Patient will be able to decrease muscle resting tone of pelvic floor muscles to allow for decreased pain. Patient reports a reduction in abdominal pain, bloating or gas Patient reports less constipation that initial evaluation Pt will report bowel movement weekly. Knowledgeable regarding prophylaxis. Patient Goals: have a bowel movement Planned Interventions, Frequency, and Duration: Current Frequency: 1x/week Duration: 8 weeks Total Number of Visits Planned: 8 Planned Treatment Interventions: Therapeutic exercise (51699);Neuromuscular re-education (92151);Manual therapy (62344);Therapeutic activities (09842);Self-fci management (96291);Patient/Family/Caregiver Education;Biofeedback Pelvic ([id number]) PLAN FOR NEXT VISIT: toileting positions, colon massage, internal release, external soft tissue work Patient demonstrates good understanding of plan of care and treatment. The above goals and plan of care were discussed and agreed upon by patient/family. Transfer of Care Due To: Closer to Home Patient transferring care to: Lynn Potts, PT SUBJECTIVE: Shiv Evangelista is a 20 year old female seen today for Pt reports that she started to have constipation and nausea about a year ago without known cause. Pt has tried PT closer to home with no relief, They worked on her back and that was it, not pelvic floor PT. Pt was diagnosed with Celiac 3 weeks ago will have breath test coming up soon. Pt has high level of anxiety and has seen psych services for 2 weeks taking Prozac now. 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 Pain: Pain Pain Level: 8 Pain Location: Abdomen Description: Pressure (nauseous) Frequency: Continuous Post Treatment Pain Post Treatment Pain Level: No Change PROMIS Scales T-scores: mean of general population = 50. 5 points is clinically meaningfully difference Percentiles provide an indication of how the patient's score ranks in relation to the general population. Higher percentile rankings indicate better function/quality of life. 50th percentile is the average of the general population and indicates half of respondents had a worse score. T-scores: mean of general population = 50. 5 points is clinically meaningfully difference Percentiles provide an indication of how the patient's score ranks in relation to the general population. Higher percentile rankings indicate better function/quality of life. 50th percentile is the average of the general population and indicates half of respondents had a worse score. OBJECTIVE MEASURES WITH LEVEL OF FUNCTION: Pelvic Floor Pregnancies: 0 Pain with penetration: No History of low back pain: No Urinary/Bowel History : Bowel History;Urinary History Fluid Intake: Coffee;Water;Milk Water : 4 Coffee: 16 oz (decaf) Milk : 16 oz (almond) Difficulty evacuating / Excessive Straining: Sometimes Incomplete emptying: Yes Bowel Movement Frequency: will go months without a bowel movement Bowel Movement Co (more content not included)...[facility] 11-06-2020 Evaluation note* Encounter Date Diagnosis Assessment Notes Treatment Notes Treatment Clinical Notes Oct, Celiac disease/sprue (ICD-10 - K90.0) Celiac disease material was printed BEEN FOLLOWING GLUTEN FREE DIET. BREATH TESTING IS ORDERED AND SCHEDULED IN [place] Oct, Constipation (ICD-10 - K59.00) IS STILL TAKING THE MIRALAX AND LINZESS. PATIENT ENCOURAGED HOW TO USE MIRALAX MUCH SHE DOES NEED TO. ENCOURAGED TO GET UP AND MOVE SO BOWELS MOVE ALSO. STOP AMITRIPTYLINE AND START THE LEVSIN Oct, Nausea (ICD-10 - R11.0) [facility] Other 07-01-2021 History of Present illness Narrative* Shiv is a 20 year old young woman with POTS, anxiety and headaches. She is taking 2 summer courses. She [facility] [employer] [facility] and is taking her courses through [employer]. * She stopped all her meds because she felt foggy. She stopped all her meds a few weeks ago. She stopped the Prozac as she had been taking 30 mg.Anxiety was at least 50 % better on the Prozac, * She sleeps with mom every night that she is at home. She sleeps better when she sleeps with mom. She still gets up and goes to work. She is seeing her friends more than in the past. When she is happyit's appropriate. * She has had an increase in migraine complaints. The last one she lost vision in her left eye, peripheral in with a bad headache. * She still takes Hydroxyzine 25 mg at anxiety onset. This is taken infrequently. * She is also taking Amitiza 8 mg BID * She is still having issues with constipation and GI has recommended pelvic floor PT. * Panic attacks have reduced in frequency, last one being 2 months ago. * Headaches have increased again but most likely related to the anxiety. She had a beneficial response to the Migraine cocktail in the past. Headaches may have worsened off the Lamictal. She had headaches over the holidays as well. * She still works at [employer]. * She denies any thoughts about hurting herself unless she is having a panic attack. * She has been having more issues with dizziness. FU-Xsqtufkzxp-Dddiawhwy Work Phone: Evaluation noteNo InformationNort [facility] Other Evaluation noteNo assessment information available [facility] Work Phone: Evaluation note* Diagnosis Onset Date Resolution Status 38 weeks gestation of acute Status post vaginal delivery acute [facility] Work Phone: Evaluation note* Diagnosis Onset Date Resolution Status Anxiety acute Celiac disease acute POTS (postural orthostatic tachycardia syndrome) acute [facility] Work Phone: Evaluation note* Diagnosis Second trimester state, incidental 13 weeks gestation of documented in this encounter [facility] Narrative - Reported* Type Description Date Medical History anxiety Medical History celiac Medical History migraine headache Medical History POTS [facility] Other Hiskmym general Narrative - Reported* Type Description Date Medical History anxiety Medical History celiac disease Medical History migraine headache Medical History POTS [facility] Other Hisdjur general [facility] Other History of Present illness Narrative* This visit was completed via phone or [email or web address] due to the restrictions of the COVID-19 pandemic. Allissues as below were discussed and addressed but no physical exam was performed. If it was felt that the patient should be evaluated in clinic then they were directed there. The patient/guardian verbally consented to the visit. * Shiv is a 21 year old young woman with POTS, anxiety and headaches. She was seen last in August. She has also been diagnosed IGA deficiency, celiac and fructose intolerance. She denies any other autoimmune issues. She is still really constipated. * Headaches have increased in frequency and she is now complaining of headaches 2-3 times per week. Anxiety is also increased She is on Prozac 30 mg daily. She is taking Hydroxyzine at bed but does notlike the way that she feels in the morning. Ajovi monthly Zofran as needed and omeprazole. * Sleep: Hydroxyzine helps but causes hangover sleepiness. She is able to fall asleep on her own. * Weight is 107 down from 123. * Mood is down, she does not smile as much. 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 * She has been having more issues with dizziness. RV-Eqbfaebrgx-Zowyjl 220 Work Phone: History of Present illness Narrative* This visit was completed via phone or [email or web address] due to the restrictions of the COVID-19 pandemic. Allissues as below were discussed and addressed but no physical exam was performed. If it was felt that the patient should be evaluated in clinic then they were directed there. The patient/guardian verbally consented to the visit. * Shiv is a 21 year old young woman with POTS, anxiety and headaches. She was seen last in August. She has also been diagnosed IGA deficiency, celiac and fructose intolerance. She denies any other autoimmune issues. She is still really constipated. * Headaches have increased in frequency and she is now complaining of headaches 2-3 times per week. Anxiety is also increased She is on Prozac 30 mg daily. She is taking Hydroxyzine at bed but does notlike the way that she feels in the morning. Ajovi monthly Zofran as needed and omeprazole. * Sleep: Hydroxyzine helps but causes hangover sleepiness. She is able to fall asleep on her own. * Weight is 107 down from 123. * Mood is down, she does not smile as much. 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 * She has been having more issues with dizziness. WU-Vaabvioril-Gkapzomnd-Admin RBC 585 Work Phone: Hospital course Narrative No data available for this section [facility] Additional Instructions Try to rest today and stay off your feet. Take tylenol as needed.[facility] Work Phone: Instructions* Name Dates Details Instructions not documented PV-Wlznuwrtpw-Ujrheqcs 1600 Work Phone: Instructions* Name Dates Details Instructions not documented QO-Bxxpboepah-Xirkducv-Admin RBC 585 Work Phone: progress note No data available for this section [facility] Family History Grandmother Name Dates Details Family history of syncope(V1 9.8, Z84.89) Status:Active Mother Name Dates Details Family history of syncope(V1 9.8, Z84.89) Status:Active Family history of migraine h eadaches(V17.2, Z82.0) Status:Active Grandmother Name Dates Details Family history of syncope(V1 9.8, Z84.89) Status:Active Mother Name Dates Details Family history of syncope(V1 9.8, Z84.89) Status:Active Family history of migraine h eadaches(V17.2, Z82.0) Status:Active Grandmother Name Dates Details Family history of syncope(V1 9.8, Z84.89) Status:Active Mother Name Dates Details Family history of syncope(V1 9.8, Z84.89) Status:Active Family history of migraine h eadaches(V17.2, Z82.0) Status:Active Grandmother Name Dates Details Family history of syncope(V1 9.8, Z84.89) Status:Active Mother Name Dates Details Family history of syncope(V1 9.8, Z84.89) Status:Active Family history of migraine h eadaches(V17.2, Z82.0) Status:Active Grandmother Name Dates Details Family history of syncope(V1 9.8, Z84.89) Status:Active Mother Name Dates Details Family history of syncope(V1 9.8, Z84.89) Status:Active Family history of migraine h eadaches(V17.2, Z82.0) Status:Active Grandmother Name Dates Details Family history of syncope(V1 9.8, Z84.89) Status:Active Mother Name Dates Details Family history of syncope(V1 9.8, Z84.89) Status:Active Family history of migraine h eadaches(V17.2, Z82.0) Status:Active Grandmother Name Dates Details Family history of syncope(V1 9.8, Z84.89) Status:Active Mother Name Dates Details Family history of syncope(V1 9.8, Z84.89) Status:Active Family history of migraine h eadaches(V17.2, Z82.0) Status:Active Unknown Family Member Name Dates Details Family history of syncope: M other, Maternal Grandmother(V19.8, Z84.89) Status:Active Family history of migraine h eadaches: Mother(V17.2, Z82.0) Status:Active Unknown Family Member Name Dates Details Family history of migraine h eadaches: Mother(V17.2, Z82.0) Status:Active Family history of syncope: M other, Maternal Grandmother(V19.8, Z84.89) Status:Active Unknown Family Member Name Dates Details Family history of syncope: M other, Maternal Grandmother(V19.8, Z84.89) Status:Active Family history of migraine h eadaches: Mother(V17.2, Z82.0) Status:Active Unknown Family Member Name Dates Details Family history of syncope: M other, Maternal Grandmother(V19.8, Z84.89) Status:Active Family history of migraine h eadaches: Mother(V17.2, Z82.0) Status:Active Unknown Family Member Name Dates Details Family history of syncope: M other, Maternal Grandmother(V19.8, Z84.89) Status:Active Family history of migraine h eadaches: Mother(V17.2, Z82.0) Status:Active Grandmother Name Dates Details Family history of syncope(V1 9.8, Z84.89) Status:Active Mother Name Dates Details Family history of syncope(V1 9.8, Z84.89) Status:Active Family history of migraine h eadaches(V17.2, Z82.0) Status:Active Unknown Family Member Name Dates Details Family history of syncope: M other, Maternal Grandmother(V19.8, Z84.89) Status:Active Family history of migraine h eadaches: Mother(V17.2, Z82.0) Status:Active Unknown Family Member Name Dates Details Family history of syncope: M other, Maternal Grandmother(V19.8, Z84.89) Status:Active Family history of migraine h eadaches: Mother(V17.2, Z82.0) Status:Active Unknown Family Member Name Dates Details Family history of syncope: M other, Maternal Grandmother(V19.8, Z84.89) Status:Active Family history of migraine h eadaches: Mother(V17.2, Z82.0) Status:Active Unknown Family Member Name Dates Details Family history of migraine h eadaches: Mother(V17.2, Z82.0) Status:Active Family history of syncope: M other, Maternal Grandmother(V19.8, Z84.89) Status:Active Unknown Family Member Name Dates Details Family history of syncope: M other, Maternal Grandmother(V19.8, Z84.89) Status:Active Family history of migraine h eadaches: Mother(V17.2, Z82.0) Status:Active Unknown Family Member Name Dates Details Family history of migraine h eadaches: Mother(V17.2, Z82.0) Status:Active Family history of syncope: M other, Maternal Grandmother(V19.8, Z84.89) Status:Active Unknown Family Member Name Dates Details Family history of migraine h eadaches: Mother(V17.2, Z82.0) Status:Active Family history of syncope: M other, Maternal Grandmother(V19.8, Z84.89) Status:Active Unknown Family Member Name Dates Details Family history of migraine h eadaches: Mother(V17.2, Z82.0) Status:Active Family history of syncope: M other, Maternal Grandmother(V19.8, Z84.89) Status:Active Unknown Family Member Name Dates Details Family history of syncope: M other, Maternal Grandmother(V19.8, Z84.89) Status:Active Family history of migraine h eadaches: Mother(V17.2, Z82.0) Status:Active Relationship Condition Age at Onset Recorded Date/T imani Not Specified No pertinent family history Unknown Relationship Condition Age at Onset Recorded Date/T imani grandparent Aortic aneurysm Unknown Myocardial infarction Unknown Relationship Condition Age at Onset Recorded Date/T miani grandparent Aortic aneurysm Unknown Myocardial infarction Unknown Not Specified Hypertension Unknown Assessments Diagnosis Constipation, unspecified constipation type- Primary Summary Purpose Advance Directives Advance Directive Response Recorded Date/ Time Advance Directives No September 26, 2017 11:01pm Chief Complaint * Follow up POTS * Accompanied by mother. Patient here for follow up migraines.* Patient here for follow up migraines. * Accompanied by mother. Reason for Referral Reason evaluate and treat f or IgA deficiency Diagnosis 1 IgA deficiency (D80. 2) Referral Organization [facility] Referring Provider First Name Pankaj Referring Provider Last Name Ab Referring Provider Specialty Gastroenter ology Referred Organization [facility] Referred Provider Mike Jones Referred Address ,[place], [place],[address] Referred Provider Specialty Immunology Referral Priority Routine Chief Complaint and Reason for Visit Chief Complaint I49.8 R07.9 Elevated LFTs R35.0 Chief Complaint 33 wks iup, Contract ions, Possible Water Rupture Chief Complaint 33 wks iup, Contract ions, Possible Water Rupture Z36.85 Z3A.36 38 weeks iup contraction Reason for Visit 38 weeks gestation o f Status post vaginal delivery Chief Complaint 33 wks iup, Contract ions, Possible Water Rupture Z36.85 Z3A.36 38 weeks iup contraction z39.1 Reason for Visit 38 weeks gestation o f Status post vaginal delivery Chief Complaint R00.2 Chief Complaint R00.[address] requested by Rachel Fatima TRAP SETTER Chief Complaint R00.[address] requested by Rachel Fatima TRAP SETTER Reason for Visit Anxiety Celiac disease POTS (postural orthostatic tachycardia syndrome) Additional Source Comments Source Comments (unrecognize d section and content) In the event this informatio n is protected by the Federal Confidentiality of Alcohol and Drug Abuse Patient Records regulations: The Federal rules restrict any use of the information to criminally investigate or prosecute any alcohol or drug abuse patient.[facility] the event this information is protected by the Federal Confidentiality of Alcohol and Drug Abuse Patient Records regulations: The Federal rules restrict any use of the information to criminally investigate or prosecute any alcohol or drug abuse patient.[facility] INFORMATION SOURCE (unrecogn ized section and content) DATE CREATED AUTHOR 01/17/2020 [facility] DATE CREATED AUTHOR AUTHOR'S ORGANIZ ATION 06/08/2021 [facility] DATE CREATED AUTHOR AUTHOR'S ORGANIZ ATION 06/23/2021 [facility] dical Specialist DATE CREATED AUTHOR AUTHOR'S ORGANIZ ATION 10/09/2021 [facility] DATE CREATED AUTHOR AUTHOR'S ORGANIZ ATION 01/07/2022 [facility] ical Center DATE CREATED AUTHOR AUTHOR'S ORGANIZ ATION 11/16/2022 [facility] ical Center DATE CREATED AUTHOR AUTHOR'S ORGANIZ ATION 07/18/2023 [facility] DATE CREATED AUTHOR AUTHOR'S ORGANIZ ATION 11/27/2023 [facility] dical Specialists EPIC REASON FOR VISIT (unrecogniz ed section and content) Reason Comments Routine Visit Care Teams (unrecognized sec tion and content) Team Status: Inactive Member Role Status Dates Ok Tyson DO Primary Care Provider, Attending Lou mena Active Team Status: Active Member Role Status Dates Ok Tyson DO Primary Care Provider Active Team Status: Inactive Member Role Status Dates Ok Tyson DO Primary Care Provider Active Terence Tolentino DO Attending Provider Active Team Status: Inactive Member Role Status Dates Ok Tyson DO Primary Care Provider Active Yuval Pete MD Admit Provider, Attending Provider A ctive Team Status: Inactive Member Role Status Dates Chica Newman DO Attending Provider Active Team Status: Inactive Member Role Status Dates Ok Tyson DO Primary Care Provider Active Reyna King MD Attending Provider Active Team Status: Inactive Member Role Status Dates Ok Tyson DO Primary Care Provider Active Start: May 31, 2023 End: May 31, 2023 Rahel Molina APRN Attending Provider Active Start: May 31, 2023 End: May 31, 2023 Team Status: Active Member Role Status Dates Ok Tyson DO Primary Care Provider Active Start: June 07, 2023 Rahel Molina APRN Other Provider Active Star t: June 07, 2023 Emmy Jimenez MD Attending Provider Active Sta rt: June 07, 2023 Team Status: Active Member Role Status Dates Ok Tyson DO Primary Care Provider Active Start: July 04, 2023 Artur Kang MD Attending Provider Activ e Start: July 04, 2023 Team Status: Inactive Member Role Status Dates Ok Tyson DO Primary Care Provider Active Start: July 04, 2023 End: July 04, 2023 Artur Kang MD Attending Provider Activ e Start: July 04, 2023 End: July 04, 2023 Funnel Setter Relationship Specialty Start Date End Date Ok Tyson DO [address] [place] [address] PCP - General Internal Medicine 07/19/22 Luis Antonio Blas DO [address] [place] [address] PCP - Medical [place] [employer] 03/13/22 02/09/99 Funnel Setter Relationship Specialty Start Date End Date Ok Tyson DO [address] [place] [address] PCP - General Internal Medicine 07/19/22 Luis Antonio Blas DO [address] [place] [address] PCP - Medical [place] [employer] 03/13/22 02/09/99 Goals (unrecognized section and content) Goals may be documented in a n alternate section FOR RECORDS PERTAINING TO PATIENTS WHO ARE OR HAVE BEEN ENROLLED IN A CHEMICAL DEPENDENCY/SUBSTANCEABUSE PROGRAM, SOME INFORMATION MAY BE OMITTED. This clinical summary was aggregated from multiple sources. Caution should be exercised in using it in the provision of clinical care. This summary normalizes information from multiple sources, and as a consequence, information in this document may materially change the coding, format and clinical context of patient data. In addition, data may be omitted in some cases. CLINICAL DECISIONS SHOULD BE BASED ON THE PRIMARY CLINICAL RECORDS. [employer] [facility]. provides no warranty or guarantee of the accuracy or completeness of information in this document.
== END 2023-12-24 19:09 | disposition home or self-care (01) ==
LOC: LAB 19:08
PROVIDERS: PCP Internal Medicine; Visit Provider Obstetrics & Gynecology
DX: Z01.419 Encounter for gynecological examination (general) (routine) without abnormal findings (principal)
CPT/HCPCS: 88175

== ENCOUNTER 2024-01-10 08:04 | Outpatient (OUT) | payer MEDICAID, SELFPAY ==
--- NOTE | 2024-01-10 08:07 | US_ITS ---
[address] [address] Patient Name: SHIV ZUÑIGA MRN: [id number] date: 2000 Sex: F Assigned Patient Location: US Current Patient Location: Accession/Order Number: [id number] Exam Date: 01/10/2024 08:09 Report Date: 01/10/2024 08:59 At the request of: MEJIA BROWN Procedure: US OB cervical length EXAMINATION: US OB anatomy, US OB cervical length HISTORY: anatomic survey COMPARISON: Ultrasound OB transvaginal 10/23/2023 TECHNIQUE: Transabdominal sonographic examination was performed for obstetrical and evaluation. FINDINGS: Number: 1 Heart Rate: 142.11 bpm H.B. /min Amniotic Fluid Volume: Subjectively normal Placental Location: Anterior with lower margin 4.8 cm from os. Cervix Length: 4.27 cm ; closed. Incidental 0.5 cm nabothian cyst. ANATOMY: Normal Structures -cerebellum, choroid plexus, cisterna magna, lateral cerebral ventricles, orbits, midline falx, hard palate, four-chamber heart, RVOT, LVOT, stomach, kidneys, bladder, umbilical cord insertion into abdomen, three-vessel cord, cervical spine, thoracic spine, lumbar spine, sacral spine, right upper extremity, left upper extremity, right lower extremity, left lower extremity. SUBOPTIMALLY SEEN: None ABNORMALITIES: None BIOMETRY: BPD: 4.42 cm; 19 weeks 3 days; 24.10 % HC: 16.57 cm; 19 weeks 2 days; 13.20 % AC: 14.18 cm; 19 weeks 4 days; 29.40 % FL: 3.02 cm; 19 weeks 2 days; 20.20 % EFW:291.98 g; 17.70 % FL/AC: 21.29 FL/BPD: 68.31 HC/AC: 1.17 GESTATIONAL AGE: Age by EDC: 20 weeks 0 days Age by current US: 19 weeks 3 days VELMA by current US: 2024-06-02 VELMA by EDC: 2024-05-29 US/US OB cervical length IMPRESSION: 1. Single live intrauterine with growth detailed above. Electronically authenticated by: ALEXANDER WING Date: 01/10/2024 08:59
--- NOTE | 2024-01-10 08:07 | US_ITS ---
[address] [address] Patient Name: SHIV ZUÑIGA MRN: [id number] date: 2000 Sex: F Assigned Patient Location: US Current Patient Location: US Accession/Order Number: [id number] Exam Date: 01/10/2024 08:09 Report Date: 01/10/2024 08:59 At the request of: MEJIA BROWN Procedure: US OB anatomy EXAMINATION: US OB anatomy, US OB cervical length HISTORY: anatomic survey COMPARISON: Ultrasound OB transvaginal 10/23/2023 TECHNIQUE: Transabdominal sonographic examination was performed for obstetrical and evaluation. FINDINGS: Number: 1 Heart Rate: 142.11 bpm H.B. /min Amniotic Fluid Volume: Subjectively normal Placental Location: Anterior with lower margin 4.8 cm from os. Cervix Length: 4.27 cm ; closed. Incidental 0.5 cm nabothian cyst. ANATOMY: Normal Structures -cerebellum, choroid plexus, cisterna magna, lateral cerebral ventricles, orbits, midline falx, hard palate, four-chamber heart, RVOT, LVOT, stomach, kidneys, bladder, umbilical cord insertion into abdomen, three-vessel cord, cervical spine, thoracic spine, lumbar spine, sacral spine, right upper extremity, left upper extremity, right lower extremity, left lower extremity. SUBOPTIMALLY SEEN: None ABNORMALITIES: None BIOMETRY: BPD: 4.42 cm; 19 weeks 3 days; 24.10 % HC: 16.57 cm; 19 weeks 2 days; 13.20 % AC: 14.18 cm; 19 weeks 4 days; 29.40 % FL: 3.02 cm; 19 weeks 2 days; 20.20 % EFW:291.98 g; 17.70 % FL/AC: 21.29 FL/BPD: 68.31 HC/AC: 1.17 GESTATIONAL AGE: Age by EDC: 20 weeks 0 days Age by current US: 19 weeks 3 days VELMA by current US: 2024-06-02 VELMA by EDC: 2024-05-29 US/US OB anatomy IMPRESSION: 1. Single live intrauterine with growth detailed above. Electronically authenticated by: ALEXANDER WING Date: 01/10/2024 08:59
--- OUTSIDE RECORDS SUMMARY | 2024-01-10 08:07 | XMS_ITS | CCD ---
Author Organization [facility] Care Team Providers Care Mine Inspector Name Role Phone Chica Whitmore Unavailable Unavailable Terence Pyle Unavailable Unavailable Nataprawira, Avani Unavailable Unavailable Chica Whitmore Unavailable Unavailable Al Bustillo Unavailable Unavailable Terence Pyle Primary Care Provider Pankaj Berger Unavailable Haim FIRE CONTROL TECHNICIAN-RUBBER WASHER, FIRE CONTROL TECHNICIAN-THREAD MILLING MACHINE SET UP OPERATORChica Unavailable Unavailable Terence Pyle Unavailable Unavailable Nataprawira, Avani Unavailable Unavailable Chica Whitmore Unavailable Unavailable Al Bustillo Unavailable Unavailable Terence Pyle Unavailable Unavailable Unavailable Chica Whitmore Unavailable Unavailable OK TYSON Primary Care Physician [phone] Pankaj Berger Unavailable Albert White Unavailable Chacho Domingo Unavailable Laura Day Unavailable Brenda Armstrong Unavailable DO Ok Tyson Primary Care Provider DO Ok Tyson Attending Provider [phone] Terence Pyle Primary Care Unavailabl e Self, Referral Referring Unavailable Ms. Chica Whitmore Attending UnavailTerence Munoz Primary Care UnavailMs. Chica Lucia Attending UnavailDO Ok Rizzo Primary Care Provider [phone] DO Terence Tolentino Attending Provider DO Chica Newman Attending Provider [phone] MD Yuval Pete Admit Provider MD Yuval Pete Attending Provider MD Reyna King Attending Provider Rayray Aquino Attending Unavailable DO Ok Tyson Primary Care Provider JOSE Molina Attending Provider MD Artur Kang Attending Provider Ok Tyson DO Primary Care Provider Luis Antonio Blas DO Unavailable [phone] Artur Kang Attending Venecia Tyson, Ok Primary Care Unavailable Artur Kang Admitting Unavai marijale Rahel Molina Admitting Unavailable Didmeagan, Rahel Attending Unavailable Marbella, Ok [facility] Care Unavailable Yaritza Gonzalez Admitting Unavailable Yaritza Gonzalez Attending Unavailable Marbella, Ok [facility] Care Unavailable DIDRAHEL ESCALANTE Attending Unavailable VISCI, TERENCE Harry Attending Unavailable VISCI, TERENCE Harry Referring Unavailable VISCI, TERENCE Harry Attending Unavailable VISCI, TERENCE Harry Referring Unavailable OK TYSON Attending Unavailable OK TYSON Referring Unavailable VISCI, TERENCE Harry Attending Unavailable VISCI, TERENCE Harry Referring Unavailable ALONDRANAVID Melcohr Attending Unavailable SUZAN PATRICK Attending Unavailable ALONDRANAVID Melchor Attending Unavailable YARITZA GONZALEZ Attending Unavailable YARITZA GONZALEZ Referring Unavailable Allergies Allergy Classification Reported Allergen(s) Allergy Type Date of Onset Reaction(s) Facility (12 sources) Wheat preparation; Translations: [wheat] Drug Allergy 08-30-2022 Abdominal Pain [facility] Medications Current Medications Medication Drug Class(es) Dates Sig (Normalized) Sig (Original) Ajovy (20 sources) Ajovy Active 200 actuat albuterol 0.09 mg/actuat dry powder inhaler (20 sources) beta2-Adrenergic Agonist Start: 12-24-2023 End: 12-23-2024 take 2 puff(s) by inhalation every four hours for wheezing albuterol (ProAir RespiClick) 90 mcg/act breath-activated inhaler Indications: Upper respiratory tract infection, unspecified type Inhale 2 puffs every 4 (four) hours if needed for wheezing 1 each 12/24/2023 12/23/2024 Active Start: 12-13-2020 take 2 puff(s) by [...] Start: 12-13-2020 take 2 puff(s) by mo [facility] every four hours as needed Albuterol Sulfate HFA 108 (90 Base) MCG/ACT Inhalation Aerosol Solution INHALE 2 PUFFS BY MOUTH EVERY 4 HOURS NEEDED Quantity: 7 Refills: 0 Ordered: 13-Dec-2020 DO Start : 13-Dec-2020 Active Start: 12-13-2020 take 2 puff(s) by [facility] every four hours as needed Albuterol Sulfate HFA 108 (90 Base) MCG/ACT Inhalation Aerosol Solution INHALE 2 PUFFS BY MOUTH EVERY 4 HOURS NEEDED Quantity: 7 Refills: 0 Ordered: 13-Dec-2020 DO Start : 13-Dec-2020 Active busPIRone hydrochloride 5 mg oral tablet (6 sources) Start: 07-03-2023 take 5 mg by mouth twice daily Buspirone Active 5 MG PO Twice daily July 03, 2023 12:00am Start: 02-16-2020 End: 08-30-2020 take 1 tablet by mouth twice daily busPIRone HCl - 5 MG Oral Tablet take 1 tablet by mouth twice a day Quantity: 60 Refills: 2 Ordered: 09-Mar-2020 Haim GARCIA-RUBBER WASHER, JOSE-THREAD MILLING MACHINE SET UP OPERATORChica Start : 16-Feb-2020 End : 30-Aug-2020 Complete hydrOXYzine pamoate 25 mg oral capsule (20 [...] Quantity: 90 Refills: 1 Ordered: 13-Apr-2020 Haim FIRE CONTROL TECHNICIAN-RUBBER WASHER, FIRE CONTROL TECHNICIAN-THREAD MILLING MACHINE SET UP OPERATOR, Chica Start : 13-Sep-2019 Active hyoscyamine sulfate 0.125 [...] 26, 2019 10:13am take 1 capsule by [facility] every twenty-four hours Linzess 72 MCG 1 cap(s) Orally Once a day for 30 day(s) Active take 1 capsule by mo ut every twenty-four hours Linzess 145 MCG 1 cap(s) Orally Once a day for 30 day(s) Active Linzess Active magnesium oxide 400 mg oral tablet (8 sources) Start: 12-13-2023 take 1 tablet by mouth once daily magnesium oxide (Mag-Ox) 400 MG tablet Take 1 tablet by mouth Daily 12/13/2023 Active Start: 07-03-2023 End: 07-04-2023 take 400 mg by mouth once daily Magnesium Oxide Discontinued 400 MG PO Daily July 03, 2023 12:00am July 04, 2023 10:12am meclofenamate 100 mg oral capsule (1 source) Start: 05-17-2021 End: 05-22-2021 take 1 capsule by mouth three times daily meclofenamate 100 mg Cap 100 mg = 1 cap(s), Oral, TID, X 5 day(s), # 15 cap(s), Refills(s) 0, Pharmacy: [place] [id number] [facility], 157.5, cm, 05/17/21 20:52:00 EDT, Height/Length Dosing, 47.8, kg, 05/17/21 20:52:00 EDT, Weight Dosing Start Date: 05/17/21 Stop Date: 05/22/21 Status: Ordered methylPREDNISolone 4 mg oral tablet (3 sources) Corticosteroid Start: 12-13-2020 Medrol (Dusty) 4 MG as directed Orally for 6 days Dec, Active ondansetron 4 mg disintegrating oral tablet (20 sources) Serotonin-3 Receptor Antagonist Start: 12-13-2023 take 1 tablet by mouth every six hours for nausea ondansetron ODT (Zofran-ODT) 4 MG disintegrating tablet DISSOLVE 1 TABLET IN MOUTH EVERY 6 HOURS IF NEEDED FOR NAUSEA OR VOMITING 12/13/2023 Active Start: 03-27-2019 End: 11-12-2019 take 4 mg [...] 29, 2017 12:00am March 27, 2018 10:30pm propranolol hydrochloride 40 mg oral tablet (13 sources) beta-Adrenergic Lexi Start: 07-04-2023 take 1 tablet by mouth in the morning propranolol (Inderal) 40 MG tablet Take 40 mg by mouth in the morning and 40 mg before bedtime. 07/04/2023 Active Start: 07-03-2023 End: 07-04-2023 take 1 capsule [...] Once monthly Quantity: 1 Refills: 3 Haim FIRE CONTROL TECHNICIAN-RUBBER WASHER, Chica GROVES Start : 05-Nov-2019 Active 1.5 ML Pen amitriptyline hydrochloride 25 mg oral tablet (2 sources) Tricyclic Antidepressant Start: 10-25-2020 take 1 tablet by mouth at bedtime Amitriptyline HCl - 25 MG Oral Tablet TAKE 1 TABLET BY MOUTH AT BEDTIME Quantity: 30 Refills: 0 Ordered: 21-Nov-2020 DO Start : 25-Oct-2020 Complete azithromycin 250 mg oral tablet (14 sources) Macrolide Antimicrobial Start: 12-24-2023 End: 01-02-2024 azithromycin (Zithromax Z-Dusty) 250 MG tablet Indications: Acute cough , Exposure to pneumonia Take 2 tablets (500 mg) on Day 1, followed by 1 tablet (250 mg) once daily on Days 2 through 5. 6 tablet 12/24/2023 01/02/2024 Discontinued Start: 10-09-2020 End: 10-16-2020 take 1 tablet [...] Quantity: 2 Refills: 0 Ordered: 05-Nov-2019 Haim GARCIA-RUBBER WASHER, JOSE-Chica CURTIS Start : 05-Nov-2019 Active cephalexin 500 mg [...] once daily Quantity: 30 Refills: 3 Haim FIRE CONTROL TECHNICIAN-RUBBER WASHER, FIRE CONTROL TECHNICIAN-THREAD MILLING MACHINE SET UP OPERATOR, Chica Start : 25-Aug-2019 Active Start: 08-25-2019 Citalopram Hyd robromide 10 MG Oral Tablet TAKE 1 AND 1/2 TABLETS DAILY. Quantity: 45 Refills: 5 Haim FIRE CONTROL TECHNICIAN-RUBBER WASHER, FIRE CONTROL TECHNICIAN-THREAD MILLING MACHINE SET UP OPERATOR, Chica Start : 25-Aug-2019 Active clonazePAM 0.5 [...] A DAY Quantity: 60 Refills: 4 Haim STALLWORTH, Chica GROVES Start : 05-Feb-2019 Active Start: 10-11-2018 End: 10-16-2020 take 60 mg by mouth once daily Duloxetine Discontinued 60 MG PO Daily October 11, 2018 12:00am October 16, 2020 12:31am Start: 09-30-2018 take 1 capsule by [facility] once daily DULoxetine HCl - 40 MG Oral Capsule Delayed Release Particles TAKE 1 CAPSULE BY MOUTH EVERY DAY Quantity: 30 Refills: 2 Haim GARCIA-GERMAIN AMOR Kathleen Start : 30-Sep-2018 Active DULoxetine HCl N ot-Taking DULoxetine HCl A ctive 1 ml erenumab-aooe 70 mg/ml auto-injector (7 sources) Start: 04-09-2021 inject 1 mL by subcutaneous injection every month Aimovig 70 MG/ML Subcutaneous Solution Auto-injector ADMINISTER 1 ML UNDER THE SKIN 1 TIME MONTHLY Quantity: 1 Refills: 3 Ordered: 09-Apr-2021 Haim FIRE CONTROL TECHNICIAN-RUBBER WASHER, FIRE CONTROL TECHNICIAN-THREAD MILLING MACHINE SET UP OPERATOR, Chica Start : 09-Apr-2021 Active escitalopram 10 mg [...] Start: 10-11-2018 End: 03-27-2019 Norethindrone-E.Estradiol-Ir on (03/01 ()) 1 mg-20 mcg (21)/75 mg (7) tablet [...] Start: 11-01-2020 take 1 capsule by mo [facility] once daily FLUoxetine HCl - 10 MG Oral Capsule TAKE ONE CAPSULE BY MOUTH ONE TIME DAILY Quantity: 30 Refills: 0 Ordered: 01-Nov-2020 DO Start : 01-Nov-2020 Active Start: 02-17-2021 [facility] FLUox[facility] HCl - 20 MG [...] monthly Quantity: 1 Refills: 3 Ordered: 26-Mar-2021 GERMAIN Manriquez Kathleen Start : 05-Nov-2019 End : 09-Apr-2021 Complete 1 ml galcanezumab-gnlm 120 mg/ml prefilled syringe (11 sources) Start: 07-09-2023 End: 12-24-2023 inject 120 mg by subcutaneous injection once Emgality 120 MG/ML prefilled syringe Inject 120 mg under the skin 1 (one) time 07/09/2023 12/24/2023 Discontinued (Other) Start: 04-26-2021 Emgality 120 M G/ML Subcutaneous Solution Auto-injector Start 240mg SC x 1 then 120mg SC q monthly Quantity: 1 Refills: 5 Ordered: 26-Apr-2021 GERMAIN Manriquez Kathleen Start : 26-Apr-2021 Active This will replace Ajovy with insurance approval. ibuprofen 800 mg oral tablet (16 sources) Nonsteroidal Anti-inflammatory Drug Start: 10-13-2018 End: 03-27-2019 take 800 mg by mouth every six hours Ibuprofen Discontinued 800 MG PO Q6H October 13, 2018 12:00am March 27, 2019 10:57pm Start: 09-29-2017 End: 10-11-2018 Ibuprofen Discontinued 600 M G PO every 6 to 8 hours September 29, 2017 12:00am October 11, 2018 7:25pm Junel (9 sources) Julyl Not -Taking Act sigifredo ketorolac tromethamine 10 mg oral tablet (20 sources) Nonsteroidal Anti-inflammatory Drug, Cyclooxygenase Inhibitor Start: 03-29-2020 take 1 tablet by mouth every six hours Ketorolac Tromethamine 10 MG Oral Tablet take 1 tablet at headache onset may repeat once in 6 hours if needed. Quantity: 15 Refills: 0 Ordered: 22-Aug-2020 Haim GARCIA-MT, Chica GROVES Start : 29-Mar-2020 Active Start: 03-27-2019 End: [...] needed. Quantity: 15 Refills: 0 Haim GARCIA-MT, Chica GROVES Start : 29-Apr-2018 Active lamoTRIgine 25 mg [...] Quantity: 360 Refills: 0 Ordered: 12-Dec-2019 Haim FIRE CONTROL TECHNICIAN-RUBBER WASHER, FIRE CONTROL TECHNICIAN-THREAD MILLING MACHINE SET UP OPERATOR, Chica Start : 30-Dec-2018 End : 30-Aug-2020 [...] Complete Start: 12-07-2019 take 1 capsule by [facility] twice daily at mealtime Amitiza 8 MCG 1 capsule with food and water Orally Twice a day for 30 day(s) Nov, Not-Taking metoclopramide 10 mg oral tablet (8 sources) Dopamine-2 Receptor Antagonist Start: 03-27-2019 End: 11-12-2019 take 1 tablet by mouth every six hours Metoclopramide Hcl (Reglan) 10 mg tablet Discontinued 10 MG PO Q6H March 27, 2019 1:00am November 12, 2019 9:48pm 24 hr metoprolol succinate 25 mg extended release oral tablet (5 sources) beta-Adrenergic Lexi Start: 10-23-2023 End: 10-22-2024 take 1 tablet by mouth once daily metoprolol succinate XL (Toprol-XL) 25 MG 24 hr tablet Indications: Palpitations Take 1 tablet (25 mg) by mouth Daily Do not crush or chew. 30 tablet 10/23/2023 12/24/2023 Discontinued (Other) metroNIDAZOLE 500 mg oral tablet (3 sources) [...] Quantity: 270 Refills: 0 Ordered: 03-Sep-2021 Haim FIRE CONTROL TECHNICIAN-RUBBER WASHER, FIRE CONTROL TECHNICIAN-THREAD MILLING MACHINE SET UP OPERATOR, Chica Start : 11-May-2021 Active Josie 0.25-35 [...] mg capsule Discontinued 100 MG PO Q12H 11 14October 16, 2020 12:00am March 23, 2021 1:05pm administer with a meal/food; swallow whole; do not open, crush, dissolve , or chew omeprazole 40 mg delayed release oral capsule (20 sources) Proton Pump Inhibitor Start: 10-09-2020 End: 09-18-2022 take 40 mg by mouth once daily Omeprazole Discontinued 40 MG PO Daily 84 84 October 09, 2020 12:00am September 18, 2022 8:29am Omeprazole Activ e plecanatide 3 mg oral tablet (16 sources) [...] October 09, 2020 3:25pm polyethylene glycol 3350 09375 mg powder for oral solution (20 sources) Osmotic Laxative Start: 11-13-2019 End: 10-16-2020 Polyethylene Glycol 3350 (Miralax) 17 gram/dose powder Discontinued 17 GM PO Twice daily November 13, 2019 12:00am October 16, 2020 12:31am MiraLax Active polyethylene glycol 3350 [id number] mg / potassium chloride 2970 mg / sodium bicarbonate 6740 mg / sodium chloride 5860 mg / sodium sulfate 87292 mg powder for oral solution (8 sources) [...] October 13, 2018 6:20pm predniSONE Activ e Lzustlcw-Tah-Hn-Fa (5 sources) Start: 09-18-2022 End: 07-04-2023 take 1 tablet by mouth once Okdyoujc-Diu-Vm-Fa Discontinued TAB PO September 18, 2022 12:00am July 04, 2023 10:12am Start: 09-18-2022 take 1 tablet by mouth once Pr enatal Bzrnyvoe-Nuj-Ly-Fa Active TAB PO September 18, 2022 12:00am promethazine hydrochloride 12.5 mg oral tablet (20 sources) Phenothiazine Start: 07-03-2023 End: 07-04-2023 take 12.5 mg by mouth every six hours Promethazine Discontinued 12.5 MG PO Every 6 hours July 03, 2023 12:00am July 04, 2023 10:12am Start: 10-09-2020 take 1 tablet by ashtyn th every six hours Promethazine HCl 12.5 MG 1 tablet as needed Orally every 6 hrs for 30 day(s) Sep, Active Start: 09-27-2017 End: 09-28-2017 take 12.5 [...] 24 HOURS. Quantity: 9 Refills: 3 Haim HADDADN-RUBBER WASHER, JOSE-THREAD MILLING MACHINE SET UP OPERATOR, Chica Start : 30-Dec-2018 Active sacrosidase 8500 [...] Quantity: 90 Refills: 2 Ordered: 22-Mar-2021 Haim FIRE CONTROL TECHNICIAN-RUBBER WASHER, FIRE CONTROL TECHNICIAN-THREAD MILLING MACHINE SET UP OPERATOR, Chica Start : 22-Mar-2021 End : 30-May-2021 Complete Problems Active Problems Problem Classification Problem Date Documented Da te Episodic/Chronic Abdominal pain (20 sources) Unspecified abdominal pain; Translations: [Chronic abdominal pain] Onset: 04-27-2021 Resolved: 04-27-2021 Episodic Acute bronchitis (2 sources) Acute bronchitis; Translations: [Acute bronchitis, unspecified] 12-24-2023 Episodic Anxiety disorders (20 sources) Anxiety; Translations: [...] A [IgA]] Onset: 2021 Resolved: 2021 Chronic Immunizations and screening for infectious disease (6 sources) Contact with and (suspected) exposure to other viral communicable diseases; Translations: [Contact with and (suspected) exposure to other communicable diseases] Onset: 11-19-2020 Resolved: 04-04-2021 Episodic Menstrual disorders (9 sources) Menometrorrhagia; Translations: [Excessive and frequent menstruation [...] [Chondrocostal junction syndrome [Tietze]] 10-13-2018 Episodic Other connective tissue disease (1 source) Pain in left lower leg; Translations: [Pain in left lower leg] Onset: 01-03-2024 Episodic Other connective tissue disease (1 source) Other specified soft tissue disorders; Translations: [Other specified soft tissue disorders] Onset: 01-03-2024 Episodic Other connective tissue disease (2 sources) Pain of left calf; Translations: [Pain in left lower leg] 01-02-2024 Episodic Other connective tissue disease (2 sources) Swollen calf; Translations: [Other specified soft tissue disorders] 01-02-2024 Episodic Other disorders of stomach and duodenum [...] (SIBO)] Onset: 02-15-2021 Resolved: 07-03-2021 Episodic Other lower respiratory disease (2 sources) Cough; Translations: [Acute cough] 12-24-2023 Episodic Other nutritional; endocrine; and metabolic disorders [...] [13 weeks gestation of ] 11-25-2023 Episodic Residual codes; unclassified (2 sources) Gestation period, 18 weeks; Translations: [18 weeks gestation of ] 12-24-2023 Episodic Substance-related disorders (10 sources) Smoker; Translations: [Nicotine dependence, unspecified, uncomplicated] Onset: 11-01-2022 11-25-2021 Chronic Comment on above: Added secondary to d ocumentation in Social History. Syncope (20 sources) Syncope; Translations: [Syncope and collapse] Episodic Unclassified (9 sources) OB Reminders Onset: 07-23-2022 07-23-2022 Urinary tract infections (20 sources) Bacterial urinary infection; Translations: [Urinary tract infection, site not specified] 10-16-2020 Episodic Past or Other Problems Problem Classification Problem Date Documented Da te Episodic/Chronic Cardiac dysrhythmias (19 sources) Sinus tachycardia; Translations: [Tachycardia, unspecified] Onset: 05-31-2023 06-18-2023 Episodic Malaise and fatigue (15 sources) Asthenia; Translations: [Weakness] Onset: 02-21-2020 04-10-2022 Episodic Other circulatory disease (7 sources) Postural orthostatic tachycardia syndrome ; Translations: [POTS (postural orthostatic tachycardia syndrome)] Onset: 07-04-2023 Episodic Other connective tissue disease (20 sources) [...] [Constipation K59.00] Onset: 11-06-2020 Resolved: 2021 Episodic NEGATED: Highlighted row has not occurred!Residual codes; unclassified (20 sources) Disease Episodic Results Test Name Value Interpretation Reference Range Facility Comprehensive Metabolic Pane yaritza 01-03-2024 Albumin [Mass/Vol] 3.8 g/dL Normal 3.5-5.7 The Counts include 234 beds at the [facility] Comment on above: Performed By: #### C MP #### [address] Albumin/Globulin [Mass ratio] 1.7 {ratio} Normal [facility] Comment on above: Performed By: #### C MP #### [address] ALP [Catalytic activity/Vol] 34 U/L Normal 34-104 [facility] Comment on above: Result Comment: PERF ORMED BY: [place] [address] PATHOLOGIST ENROLLMENT NURSE SHAHANA BRITTON M.D. Performed By: #### C MP #### [address] ALT [Catalytic activity/Vol] 9 U/L Normal 7-52 [facility] Comment on above: Performed By: #### C MP #### [address] Anion gap [Moles/Vol] 8.8 mmol/L Normal 6.0-15.0 [facility] Comment on above: Performed By: #### C MP #### [address] AST [Catalytic activity/Vol] 18 U/L Normal 13-39 [facility] Comment on above: Performed By: #### C MP #### [address] Bilirubin [Mass/Vol] 0.4 mg/dL Normal 0.3-1.0 [facility] Comment on above: Performed By: #### C MP #### [address] Calcium [Mass/Vol] 8.6 mg/dL Normal 8.6-10.3 The Counts include 234 beds at the [facility] Comment on above: Performed By: #### C MP #### [address] Chloride [Moles/Vol] 106 mmol/L Normal 98-107 [facility] Comment on above: Performed By: #### C MP #### [address] CO2 [Moles/Vol] 25.6 mmol/L Normal 21.0-31.0 [facility] Comment on above: Performed By: #### C MP #### [address] Creatinine [Mass/Vol] 0.48 mg/dL Low 0.60-1.20 [facility] Comment on above: Performed By: #### C MP #### [place] [address] [place] GFR/1.73 sq M.predicted MDRD (S/P/Bld) [Vol rate/Area] mL/min/{1.73_m2} Normal [facility] Comment on above: Performed By: #### C MP #### [address] Globulin (S) [Mass/Vol] 2.2 g/dL Normal [facility] Comment on above: Performed By: #### C MP #### [address] Glucose [Mass/Vol] 70 mg/dL Normal 70-100 The Counts include 234 beds at the [facility] Comment on above: Result Comment: [place] Glucose Reference Range is dependent on time and content of last meal. Glucose of more than 200 mg/dL in a nonstressed, ambulatory subject supports the diagnosis of Diabetes Mellitus. ADA recommended reference range Performed By: #### C MP #### [address] Potassium [Moles/Vol] 4.4 mmol/L Normal 3.5-5.1 [facility] Comment on above: Performed By: #### C MP #### [address] Protein [Mass/Vol] 6.0 g/dL Low 6.4-8.9 The Counts include 234 beds at the [facility] Comment on above: Performed By: #### C MP #### [address] Sodium [Moles/Vol] 136 mmol/L Normal 136-145 The Counts include 234 beds at the [facility] Comment on above: Performed By: #### C MP #### [address] Urea nitrogen [Mass/Vol] 9 mg/dL Normal 7-25 [facility] Comment on above: Performed By: #### C MP #### [address] Hemogram CBC Without Diffon 01-03-2024 Erythrocyte distribution width (RBC) [Ratio] 13.3 % Normal 11.9-15.3 [facility] Comment on above: Performed By: #### C BCNO #### [address] Hematocrit (Bld) [Volume fraction] 32.2 % Low 34.0-46.4 [facility] Comment on above: Performed By: #### C BCNO #### [address] Hemoglobin (Bld) [Mass/Vol] 11.1 g/dL Low 11.8-15.4 [facility] Comment on above: Performed By: #### C BCNO #### [address] MCH (RBC) [Entitic mass] 31.3 pg Normal 24.7-34.3 [facility] Comment on above: Performed By: #### C BCNO #### [address] MCV (RBC) [Entitic vol] 90.8 fL Normal 80-100 [facility] Comment on above: Performed By: #### C BCNO #### [address] Mean Corpuscular HGB Conc 34.4 g/dL Normal 32.0-35.0 [facility] Comment on above: Performed By: #### C BCNO #### [address] Platelet mean volume (Bld) [Entitic vol] 8.2 fL Normal 6.3-10.7 [facility] Comment on above: Result Comment: PERF ORMED BY: [place] [address] PATHOLOGIST ENROLLMENT NURSE SHAHANA BRITTON M.D. Performed By: #### C BCNO #### [address] Platelets (Bld) [#/Vol] 219 10*3/uL Normal 150-450 [facility] Comment on above: Performed By: #### C BCNO #### [address] RBC (Bld) [#/Vol] 3.55 10*6/uL Low 3.60-5.00 [facility] Comment on above: Performed By: #### C BCNO #### [address] WBC (Bld) [#/Vol] 7.2 10*3/uL Normal 3.8-11.6 The Counts include 234 beds at the [facility] Comment on above: Performed By: #### C BCNO #### [address] Laboratory - Chemistry and C hemistry - challengeon 01-03-2024 Albumin [Mass/Vol] 3.8 g/dL 3.5 - 5.7 g/dL [facility] Albumin/Globulin [Mass ratio] 1.7 {ratio} [facility] ALP [Catalytic activity/Vol] 34 U/L 34 - 104 U/L [facility] ALT [Catalytic activity/Vol] 9 U/L 7 - 52 U/L [facility] Anion gap [Moles/Vol] 8.8 mmol/L 6.0 - 15.0 meq/L [facility] AST [Catalytic activity/Vol] 18 U/L 13 - 39 U/L [facility] Bilirubin [Mass/Vol] 0.4 mg/dL 0.3 - 1 .0 mg/dL [facility] Calcium [Mass/Vol] 8.6 mg/dL 8.6 - 10. 3 mg/dL [facility] Chloride [Moles/Vol] 106 mmol/L 98 - 10 7 mmol/L [facility] CO2 [Moles/Vol] 25.6 mmol/L 21.0 - 31.0 mmol/L [facility] Creatinine (U) [Mass/Vol] 0.48 mg/dL Low 0.60 - 1.20 mg/dL [facility] Globulin (S) [Mass/Vol] 2.2 g/dL [facility] Glucose [Mass/Vol] 70 mg/dL 70 - 100 mg/dL [facility] Comment on above: Random Glucose Refer ence Range is dependent on time and content of last meal. Glucose of more than 200 mg/dL in a nonstressed, ambulatory subject supports the diagnosis of Diabetes Mellitus. ADA recommended reference range Potassium [Moles/Vol] 4.4 mmol/L 3.5 - 5.1 mmol/L [facility] Protein [Mass/Vol] 6 g/dL Low 6.4 - 8.9 g/dL [facility] Sodium [Moles/Vol] 136 mmol/L 136 - 145 mmol/L [facility] Urea nitrogen [Mass/Vol] 9 mg/dL 7 - 25 mg/dL [facility] Laboratory - Hematology and Cell countson 01-03-2024 Erythrocyte distribution width (RBC) [Ratio] 13.3 % 11.9 - 15.3 % [facility] Hematocrit (Bld) [Volume fraction] 32.2 % Low 34.0 - 46.4 % [facility] Hemoglobin (Bld) [Mass/Vol] 11.1 g/dL Low 11.8 - 15.4 g/dL [facility] MCH (RBC) [Entitic mass] 31.3 pg 24.7 - 34.3 pg [facility] MCHC (RBC) [Mass/Vol] 34.4 g/dL 32.0 - 35.0 g/dL [facility] MCV (RBC) [Entitic vol] 90.8 fL 80 - 100 fL [facility] Platelet mean volume (Bld) [Entitic vol] 8.2 fL 6.3 - 10.7 fL [facility] Platelets (Bld) [#/Vol] 219 10*3/uL 150 - 450 10*3/uL [facility] Laboratory - Urinalysison RBC LM.HPF (Urine sed) [#/Area] 3.55 10*6/uL Low 3.60 - 5.00 10*6/uL [facility] WBC LM.HPF (Urine sed) [#/Area] 7.2 10*3/uL 3.8 - 11.6 10*3/uL [facility] No Panel Informationon 01-02 ESTIMATED GFR mL/Min [facility] care Interpretation and review of laboratory results Abnormal [facility] Interpretation and review of laboratory results Abnormal [facility] Rundown App e IGP,APTIMA HPV,AGE GDLNon AGE GDLN ACOG TESTING Note . [facility] Comment on above: TESTS RESULT FLAG UN ITS REF RANGE LAB Clinician Provided Cytology Information Source.............Cervix No. of containers..01 ThinPrep Vial Age Algo ACOG Raine... -10 03 FLAG LEGEND: L-Low Normal,H-High Normal,LL-Alert Low,HH-Alert High <-Panic Low,>-Panic High,A-Abnormal,AA-Critical Abnormal Performed at: 01 =G [facility] [address] [place] [address] Laila Addison MD, IGP, RFX APTIMA HPV ASCU Note . [facility] Comment on above: TESTS RESULT FLAG UN ITS REF RANGE LAB DIAGNOSIS: 02 NEGATIVE FOR INTRAEPITHELIAL LESION OR MALIGNANCY. THIS SPECIMEN WAS RESCREENED PART OF OUR AIR BRAKE MAN PROGRAM. Specimen adequacy: 02 Satisfactory for evaluation. Endocervical and/or squamous metaplastic cells (endocervical component) are present. Performed by: 03 Rachael Baig, Relay Assembler (ASC) QC reviewed by: 02 Mary Gonsalves, Relay Assembler (ASC) . 02 Note: Note 02 The Pap smear is a screening test designed to aid in the detection of premalignant and malignant conditions of the uterine cervix. It is not a diagnostic procedure and should not be used as the sole means of detecting cervical cancer. Both false-positive and false-negative reports do occur. Test Methodology: Note 02 This liquid based ThinPrep(R) pap test was screened with the use of an image guided system. . 02 The HPV DNA reflex criteria were not met with this specimen result therefore, no HPV testing was performed. FLAG LEGEND: L-Low Normal,H-High Normal,LL-Alert Low,HH-Alert High <-Panic Low,>-Panic High,A-Abnormal,AA-Critical Abnormal Performed at: 02 WB [facility] [address] [place], [place] [address] Laila Addison MD, 03 SERRANO [facility] [address] [place] [address] V Hugo PhD, Performed at: =G - [facility] [address], [place] [id number] Boat Loader Helper: Laila Addison MD, Phone: [phone] Performed at: - [facility], [place] [id number] Boat Loader Helper: Laila Addison MD, Phone: [phone] [facility] US.doppler Lower extremity v eidion - kay 01-02-2024 EXAM: [facility] US LOWER EXTREMITY VENOUS DUPLEX LEFT HISTORY: Pain TECHNIQUE: Real-time ultrasonographic evaluation with color-flow Doppler imaging is provided. Doppler spectral waveform analysis also included. COMPARISON: No comparison FINDINGS: The visualized left common femoral vein, superficial femoral vein, popliteal vein, and trifurcation vessels demonstrate appropriate compressibility and augmentation of flow. The left greater saphenous vein is patent. The left gastroc vein is patent. No perivascular fluid collection. No abnormality of the popliteal fossa. IMPRESSION: Negative for ultrasonographic evidence of DVT in the left lower extremity. Electronically Signed:Electronicall y signed by PITER CULVER MD at 02-Jan-2024 05:15:11 PM [facility] Teleradiology IMAGING Piter Culver MD - 01/02/2024 EXAM: [facility] US LOWER EXTREMITY VENOUS DUPLEX LEFT HISTORY: Pain TECHNIQUE: Real-time ultrasonographic evaluation with color-flow Doppler imaging is provided. Doppler spectral waveform analysis also included. COMPARISON: No comparison FINDINGS: The visualized left common femoral vein, superficial femoral vein, popliteal vein, and trifurcation vessels demonstrate appropriate compressibility and augmentation of flow. The left greater saphenous vein is patent. The left gastroc vein is patent. No perivascular fluid collection. No abnormality of the popliteal fossa. IMPRESSION: Negative for ultrasonographic evidence of DVT in the left lower extremity. Electronically Signed:Electronicall y signed by PITER CULVER MD at 02-Jan-2024 05:15:11 PM [facility] Teleradiology [facility] Radiology Study observation (narrative) [facility] US.doppler Lower extremity v ein - leftOrdered By: Piter Culver on 01-02-2024 [facility] US LOWER EXTREMITY VENO US DUPLEX LEFTon 01-02-2024 [facility] US LOWER EXTREMITY VENOUS DUPLEX LEFT EXAM: [facility] US LOWER EXTREMITY VENOUS DUPLEX LEFT HISTORY: Pain TECHNIQUE: Real-time ultrasonographic evaluation with color-flow Doppler imaging is provided. Doppler spectral waveform analysis also included. COMPARISON: No comparison FINDINGS: The visualized left common femoral vein, superficial femoral vein, popliteal vein, and trifurcation vessels demonstrate appropriate compressibility and augmentation of flow. The left greater saphenous vein is patent. The left gastroc vein is patent. No perivascular fluid collection. No abnormality of the popliteal fossa. IMPRESSION: Negative for ultrasonographic evidence of DVT in the left lower extremity. Electronically Signed:Electronicall y signed by PITER CULVER MD at 02-Jan-2024 05:15:11 PM [facility] Teleradiology Normal Not Available RECURRENT VAGINITIS (HTRX)on 12-26-2023 ATOPOBIUM VAGINAE 0 [facility] ATOPOBIUM VAGINAE Not detected [facility] BVAB 2,3 (BACTERIAL VAGINOSIS ASSOCIATED BACTERIA 2, 3); MOBILUNCUS SPP 0 [facility] BVAB 2,3 (BACTERIAL VAGINOSIS ASSOCIATED BACTERIA 2, 3); MOBILUNCUS SPP Not detected [facility] ROWENA ALBICANS, PARAPSILOSIS, TROPICALIS 0 [facility] Healthcare ROWENA ALBICANS, PARAPSILOSIS, TROPICALIS Not detected [facility] ROWENA GLABRATA 0 [facility] ROWENA GLABRATA Not detected [facility] ROWENA KRUSEI 0 [facility] ROWENA KRUSEI Not detected [facility] CHLAMYDIA TRACHOMATIS 0 [facility] CHLAMYDIA TRACHOMATIS Not detected [facility] GARDNERELLA VAGINALIS 0 [facility] GARDNERELLA VAGINALIS Not detected [facility] MEGASPHAERA (TYPES 1, 2) 0 [facility] MEGASPHAERA (TYPES 1, 2) Not detected [facility] MYCOPLASMA GENITALIUM 0 [facility] MYCOPLASMA GENITALIUM Not detected [facility] NEISSERIA GONORRHOEAE 0 [facility] NEISSERIA GONORRHOEAE Not detected [facility] TRICHOMONAS VAGINALIS 0 [facility] TRICHOMONAS VAGINALIS Not detected [facility] Urinalysis macro (dipstick) panel (U)on 11-25-2023 Bilirubin, UA Negative Negative - 4(70) +++ mg/dL [facility] Blood, UA Negative Negative - 50 Soto/mcL [facility] Clarity, UA Clear [facility] Health[facility] re Color, UA Yellow [facility] Glucose, UA Negative Negative - 1999(110) ++++ mg/dL [facility] Interpretation and review of laboratory results Abnormal [facility] Ketones, UA Negative Negative - 160(16) ++++ mg/dL [facility] Leukocytes, UA Trace Negative - 500+++ Adarsh/mcL [facility] Nitrite, UA Negative Negative - Positive [facility] pH, UA 5.5 5 - 9 [facility] Protein, UA Negative Negative - 1999(20) ++++ mg/dL [facility] Spec Grav, UA 1.02 1 - 1.03 [facility] Urobilinogen, UA 0.2 0.2 - 12 mg/dL [facility] *OFFICE ONLY*on 06-11 FPG ECG *OFFICE ONLY* [facility] [place] [address] [place] [address] Electrocardiograph Report Signed Patient: Shiv Evangelista MR#: [id number] : 2000 Acct:[id number] Age/Sex: 23 / F ADM Date: 07/04/23 Loc: [facility] Room: Type: [facility] Attending Dr: Artur Kang MD Ordering [...] abnormality Abnormal ECG Confirmed by Emmy Jimenez ([id number]) on 07/08/2023 1:09:14 PM Referred By: Electronically Signed By:Emmy Jimenez Transcribed By: MUS Signed By Emmy Jimenez MD 4 1309 Normal [facility] Basophils Auto (Bld) [#/Vol] Ordered By: YUVAL PETE on 09-19-2022 Basophils (Bld) [#/Vol] 0.0 10*3/uL 0.0-0.2 [facility] Basophils/100 WBC Auto (Bld) Ordered By: YUVAL PETE on 09-19-2022 Basophils/100 WBC (Bld) 0.2 % . [facility] Eosinophils Auto (Bld) [#/Vo l]Ordered By: YUVAL PETE on 09-19-2022 Eosinophils (Bld) [#/Vol] 0.0 10*3/uL 0.0-0.45 [facility] Eosinophils/100 WBC Auto (Bl d)Ordered By: YUVAL PETE on 09-19-2022 Eosinophils/100 WBC (Bld) 0.1 % . [facility] Erythrocyte distribution wid th Auto (RBC) [Ratio]Ordered By: YUVAL PETE on 09-19-2022 Erythrocyte distribution width (RBC) [Ratio] 13.3 % 11.9-15.3 [facility] Hematocrit Auto (Bld) [Volum e fraction]Ordered By: YUVAL PETE on 09-19-2022 Hematocrit (Bld) [Volume fraction] 28.0 % 34.0-46.4 [facility] Hemoglobin [Mass/volume] in BloodOrdered By: YUVAL PETE on 09-19-2022 Hemoglobin (Bld) [Mass/Vol] 9.3 g/dL 11.8-15.4 [facility] Leukocytes [#/volume] correc dionicio for nucleated erythrocytes in Blood by Automated counOrdered By: YUVAL PETE on 09-19-2022 WBC corrected for nucl RBC Auto (Bld) [#/Vol] 14.2 10*3/uL 3.8-11.6 [facility] Lymphocytes Auto (Bld) [#/Vo l]Ordered By: YUVAL PETE on 09-19-2022 Lymphocytes (Bld) [#/Vol] 1.2 10*3/uL 1.00-4.8 [facility] Lymphocytes/100 WBC Auto (Bl d)Ordered By: YUVAL PETE on 09-19-2022 Lymphocytes/100 WBC (Bld) 8.5 % . [facility] MCH Auto (RBC) [Entitic mass ]Ordered By: YUVAL PETE on 09-19-2022 MCH (RBC) [Entitic mass] 28.7 pg 24.7-34.3 [facility] MCHC Auto (RBC) [Mass/Vol]Or dered By: YUVAL PETE on 09-19-2022 MCHC (RBC) [Mass/Vol] 33.2 g/dL 32.0-35.0 [facility] MCV Auto (RBC) [Entitic vol] Ordered By: YUVAL PETE on 09-19-2022 MCV (RBC) [Entitic vol] 86.3 fL 80-100 [facility] Monocytes Auto (Bld) [#/Vol] Ordered By: YUVAL PETE on 09-19-2022 Monocytes (Bld) [#/Vol] 1.5 10*3/uL 0.0-0.8 [facility] Monocytes/100 WBC Auto (Bld) Ordered By: YUVAL PETE on 09-19-2022 Monocytes/100 WBC (Bld) 10.2 % . [facility] Neutrophils Auto (Bld) [#/Vo l]Ordered By: YUVAL PETE on 09-19-2022 Neutrophils (Bld) [#/Vol] 11.5 10*3/uL 1.8-7.7 [facility] Neutrophils/100 WBC Auto (Bl d)Ordered By: YUVAL PETE on 09-19-2022 Neutrophils/100 WBC (Bld) 81.0 % . [facility] Nucleated erythrocytes [Pres ence] in Blood by Automated countOrdered By: YUVAL PETE on 09-19-2022 Nucleated RBC Auto Ql (Bld) 0.0 /100{WBC} 0-0.5 [facility] Platelet mean volume Auto (B ld) [Entitic vol]Ordered By: YUVAL PETE on 09-19-2022 Platelet mean volume (Bld) [Entitic vol] 8.8 fL 6.3-10.7 [facility] Platelets Auto (Bld) [#/Vol] Ordered By: YUVAL PETE on 09-19-2022 Platelets (Bld) [#/Vol] 181 10*3/uL 150-450 [facility] RBC Auto (Bld) [#/Vol]Ordere d By: YUVAL PETE on 09-19-2022 RBC (Bld) [#/Vol] 3.24 10*6/uL 3.60-5.00 [facility] WBC Auto (Bld) [#/Vol]Ordere d By: YUVAL PETE on 09-19-2022 WBC (Bld) [#/Vol] 14.2 10*3/uL 3.8-11.6 [facility] Amphetamine Screen Ql (U)Ord ered By: YUVAL PETE on 09-18-2022 Amphetamines Ql (U) Negative Negative [facility] Automated epithelial cells c ount in urine sediment (number/area)Ordered By: YUVAL PETE on 09-18-2022 Epithelial cells Auto (Urine sed) [#/Area] 10-19 [HPF] 0-2 [facility] Automated erythrocytes count in urine sediment (number/area)Ordered By: YUVAL PETE on 09-18-2022 RBC Auto (Urine sed) [#/Area] 0-1 [HPF] 0-4 [facility] Automated leukocytes count i n urine sediment (number/area)Ordered By: YUVAL PETE on 09-18-2022 WBC Auto (Urine sed) [#/Area] 20-49 [HPF] 0-4 [facility] Automated urine hyaline cast s count (number/volume)Ordered By: YUVAL PETE on 09-18-2022 Hyaline casts Auto (U) [#/Vol] None seen [LPF] 0-1 [facility] Barbiturates [Presence] in U rine by Screen methodOrdered By: YUVAL PETE on 09-18-2022 Barbiturates Screen Ql (U) Negative Negative [facility] Benzodiazepines Screen Ql (U )Ordered By: YUVAL PETE on 09-18-2022 Benzodiazepines Ql (U) Negative Negative [facility] Benzoylecgonine [Presence] i n Urine by Screen methodOrdered By: YUVAL PETE on 09-18-2022 Benzoylecgonine Screen Ql (U) Negative Negative [facility] Bilirubin Test strip Ql (U)O rdered By: YUVAL PETE on 09-18-2022 Bilirubin Ql (U) Negative Negative [facility] Color Auto (U)Ordered By: CHARLES PETE on 09-18-2022 Color (U) Yellow Yellow [facility] Ketones Auto test strip (U) [Mass/Vol]Ordered By: YUVAL PETE on 09-18-2022 Ketones (U) [Mass/Vol] Negative Negative [facility] Nitrite Test strip Ql (U)Ord ered By: YUVAL PETE on 09-18-2022 Nitrite Ql (U) Negative Negative [facility] Opiates [Presence] in Urine by Screen methodOrdered By: YUVAL PETE on 09-18-2022 Opiates Screen Ql (U) Negative Negative [facility] Phencyclidine Screen Ql (U)O rdered By: YUVAL PETE on 09-18-2022 Phencyclidine Ql (U) Negative Negative [facility] Comment on above: These are unconfirme d results and should not be used for legal purposes. Drug Cut-Off Concentration: AMPH 1000 ng/mL LESLEY 200 ng/mL NETTIE 200 ng/mL COCM 300 ng/mL OP 300 ng/mL PCP 25 ng/mL Protein Auto test strip (U) [Mass/Vol]Ordered By: YUVAL PETE on 09-18-2022 Protein (U) [Mass/Vol] Negative Negative [facility] Reagin Ab [Presence] in Seru m by RPROrdered By: YUVAL PETE on 09-18-2022 Reagin Ab RPR Ql (S) Non-Reactive Non Reactive [facility] Comment on above: Performed at: [facility] [address] [id number] Director: Tony Avila PhD, Phone: [phone] Specific gravity Auto test s trip (U) [Rel density]Ordered By: YUVAL PETE on 09-18-2022 Specific gravity (U) [Rel density] 1.004 1.001-1.030 [facility] Urine bacteria detection by automated methodOrdered By: YUVAL PETE on 09-18-2022 Bacteria Auto Ql (U) 2+ None Seen [facility] Urine clarity by refractomet ry automatedOrdered By: YUVAL PETE on 09-18-2022 Clarity Refractometry automated (U) Cloudy Clear [facility] Urine culture routineOrdered By: YUVAL PETE on 09-18-2022 Bacteria identified Cx Nom (U) 2 Days [facility] Urine glucose measurement by automated test strip (mass/volume)Ordered By: YUVAL PETE on 09-18-2022 Glucose Auto test strip (U) [Mass/Vol] Normal mg/dL Normal [facility] Urine hemoglobin detection b y automated test stripOrdered By: YUVAL PETE on 09-18-2022 Hemoglobin Auto test strip Ql (U) Trace Negative [facility] Urine leukocyte esterase det ection by automated test stripOrdered By: YUVAL PETE on 09-18-2022 Leukocyte esterase Auto test strip Ql (U) 4+ Negative [facility] Urobilinogen Auto test strip (U) [Mass/Vol]Ordered By: YUVAL PETE on 09-18-2022 Urobilinogen (U) [Mass/Vol] Normal mg/dL Normal [facility] pH Auto test strip (U)Ordere d By: YUVAL PETE on 09-18-2022 pH (U) 7.0 [pH] 5.0-9.0 [facility] B Streptococcus cultur eOrdered By: Chica Newman on 09-03-2022 S. agalactiae Org specific cx Ql (Unsp spec) No Group B Beta Streptococcus Isolated 3 Days [facility] Amphetamine Screen Ql (U)Ord ered By: Terence Tolentino on 08-10-2022 Amphetamines Ql (U) Negative Negative [facility] Automated erythrocytes count in urine sediment (number/area)Ordered By: Terence Tolentino on 08-10-2022 RBC Auto (Urine sed) [#/Area] 0-1 [HPF] 0-4 [facility] Automated leukocytes count i n urine sediment (number/area)Ordered By: Terence Tolentino on 08-10-2022 WBC Auto (Urine sed) [#/Area] 10-19 [HPF] 0-4 [facility] Barbiturates [Presence] in U rine by Screen methodOrdered By: Terence Tolentino on 08-10-2022 Barbiturates Screen Ql (U) Negative Negative [facility] Benzodiazepines Screen Ql (U )Ordered By: Terence Tolentino on 08-10-2022 Benzodiazepines Ql (U) Negative Negative [facility] Benzoylecgonine [Presence] i n Urine by Screen methodOrdered By: Terence Tolentino on 08-10-2022 Benzoylecgonine Screen Ql (U) Negative Negative [facility] Bilirubin Test strip Ql (U)O rdered By: Terence Tolentino on 08-10-2022 Bilirubin Ql (U) Negative Negative [facility] Color Auto (U)Ordered By: Carla Tolentino on 08-10-2022 Color (U) Yellow Yellow [facility] Ketones Auto test strip (U) [Mass/Vol]Ordered By: Terence Tolentino on 08-10-2022 Ketones (U) [Mass/Vol] Negative Negative [facility] Laboratory - UrinalysisOrder ed By: Terence Tolentino on 08-10-2022 Hyaline casts LM Ql (Urine sed) None seen [LPF] 0-8 [facility] Nitrite Test strip Ql (U)Ord ered By: Terence Tolentino on 08-10-2022 Nitrite Ql (U) Negative Negative [facility] No Panel InformationOrdered By: Terence Tolentino on 08-10-2022 Membranes Rupture (PAMG-1) Negative Negative [facility] Opiates [Presence] in Urine by Screen methodOrdered By: Terence Tolentino on 08-10-2022 Opiates Screen Ql (U) Negative Negative [facility] Phencyclidine Screen Ql (U)O rdered By: Terence Tolentino on 08-10-2022 Phencyclidine Ql (U) Negative Negative [facility] Comment on above: These are unconfirme d results and should not be used for legal purposes. Drug Cut-Off Concentration: AMPH 1000 ng/mL LESLEY 200 ng/mL NETTIE 200 ng/mL COCM 300 ng/mL OP 300 ng/mL PCP 25 ng/mL Protein Auto test strip (U) [Mass/Vol]Ordered By: Terence Tolentino on 08-10-2022 Protein (U) [Mass/Vol] Negative Negative [facility] Specific gravity Auto test s trip (U) [Rel density]Ordered By: Terence Tolentino on 08-10-2022 Specific gravity (U) [Rel density] 1.004 1.001-1.030 [facility] Squamous epithelial cells de tection in urine sediment by light microscopyOrdered By: Terence Tolentino on 08-10-2022 Epithelial cells.squamous LM Ql (Urine sed) 0-1 [HPF] 0-2 [facility] Urine bacteria detection by automated methodOrdered By: Terence Tolentino on 08-10-2022 Bacteria Auto Ql (U) None seen None Seen [facility] Urine clarity by refractomet ry automatedOrdered By: Terence Tolentino on 08-10-2022 Clarity Refractometry automated (U) Clear Clear [facility] Urine culture routineOrdered By: Terence Tolentino on 08-10-2022 Bacteria identified Cx Nom (U) 2 Days [facility] Urine glucose measurement by automated test strip (mass/volume)Ordered By: Terence Tolentino on 08-10-2022 Glucose Auto test strip (U) [Mass/Vol] Normal mg/dL Normal [facility] Urine hemoglobin detection b y automated test stripOrdered By: Terence Tolentino on 08-10-2022 Hemoglobin Auto test strip Ql (U) Negative Negative [facility] Urine leukocyte esterase det ection by automated test stripOrdered By: Terence Tolentino on 08-10-2022 Leukocyte esterase Auto test strip Ql (U) 4+ Negative [facility] Urobilinogen Auto test strip (U) [Mass/Vol]Ordered By: Terence Tolentino on 08-10-2022 Urobilinogen (U) [Mass/Vol] Normal mg/dL Normal [facility] pH Auto test strip (U)Ordere d By: Terence Tolentino on 08-10-2022 pH (U) 7.0 [pH] 5.0-9.0 [facility] Coding Summary.on 11-28-2021 Coding Summary. [id number] Gh0bWw+PGhlYWQ+PE1FV JGnK39qsSSpbD7VO4bKT D8MCCQSOPJOAF6DLY2ew ZN4GCsvV6KgeoDf PzaaeXPdKM83ZTf5ZWK8 wHydKEmldS9prFBeH0t0 JjGlSA49sE44NZwiZTKo IqV4PvUqdvxupCFm B1fiIzMkoEHiLvk+PHRh YmxlIHdpZHRoPScxMDAl TzYerCjiVZ1cSn5sYCOr LWNvbGxhcHNlOiBj s1tuJLHhULarVF5geWdq X4MxgHN2YTMqp9p5Cn79 dHI+IBEuETC5aSpxCUie i503YtBae7ceBUG4 xYUnAMtkUXQ8W79mr1U0 QQEfASMjRHO2zMN9uM3r gTunxxgwQ3QhgTZfDsZ4 HBY7gKIdvP7oiYai siucwF0tTgc+U47QGK7A UJAKTX7TOau8R0EnWwbx dHI+GE34VZKcFF90uBXt rCPkz0fajKm7BnIe JYUxBRC2gXwlEGpdg2Gc QKEbK42emVHnh7S4PUNo rKfxtZEqXqWhdVK9sJ9i UMneqqbjb7zfzihh Wbftd9ulxg79aL05C18h EHpyABZmMNX1EDXzNODz oPrrxs2atQ6mZs7+IDxj z1yic0ybdVb9VkGb UWBikaIblEfjQSL4h3Dy Wn26Y0FsjIchj8WmHkz0 ey86lORiv3E7cDC0JKym WIFfiX7yAWmgAyH8 RVToWyMlmB82uZQfEHgf My3krAjcmGkzVA6lCEXa jhalSIKhgZ2gGBUvfSXr iFlrSW3tLMKpypeu z573UmAbDUX4IBYrtRIt V3XbhC8rLwWvCKRnOBIs A8QdjOGmCKibR691NAyv VhN9YZUzpqFgP2Yw TIOvxKmlExE5n3U9Pg2Z o2AotklbSQK6OWbwHUXz ZzW0EbEdTaG3N3XeKrk8 BZOhaYgjFZ6mJ9Ke HPAvkgzzwhrhxDD1OFCj UHJlwM33fRMgRZkrQi0c s3O9q616NYTkEAQqcF88 Lz0awWefBVIxeWXZ tF7ogltyf4lezwngQsIj RLCsOJk2DEx3RBJriCqp LsHjDCQ9GuA8RYE5kVDt tT6ioTootmfzwW7i Oyc+O39xdH2oNFN6VCP7 qnptVBYryiTkQW74JC20 S3XbUucpfLDbzRQ+PGRp giOgrRngMF0mOkBm q8bqc5ZoTDviK8MsCVSo WWcoVuw7AUJjHIB4zQA8 nN6lVZBaIDqfw8G4hBO1 W2QuboXghv7zm2jo HAStPXqrG14tlMDux1V2 UVSgsEV2NLPuxDotCeRq kK99Emk+WGLvpKhvz5Sx Zhmle7knl0xnhCc7 IjMwJSIgdmFsaWduPSJ0 k4RsMk19Z48vRHldLLYi KLUzBVQlLLBvyYtmny9e yV7fMm7+PGNvbCB3 iCT0nC4bPSAjPmG9ROyv L803NeOlkMUeZnihd7gw r6uiwIm3BbBpWQOyqgJm yQjpOKP3l3WmSz35 W71bYOypZVYwTRUdHTYg VZIvlDwfej4mxY6dCl4+ FV8kv9rgsh75xL60yLA+ CPXyEIB2yEliXFbl WRHhpD8zMSzcEoO2HTMj VzKllL10oLDpXYllHw2x xRwbaGxrIC0jAAQsmgbn s946FiFdz7tdVPSs zELcMIwaJLW8H68dt4D0 LYKeNYMcSWS5iLK1eY4f bGlnbjogbGVmdDsgdmVy qMqyKAbbRKwaT551 IHRvcDsnPlBhdGllbnQg HhKzDEf4T8PdXio6PIYk uPqyFJ6tlVWaBQigPz5o eZdztRecWO3kQEGv vzcxw572TeBqg7ggZZCi gZVmBYxyHSB4C94ew8L2 ICQeUOBjERH4qCR0qO3o bGlnbjogbGVmdDsg sxGbgBxrVWxfKHexE895 IHRvcDsnPkJpcnRoIERh hRM9XS18UP70oCHym2B5 kGE1Q3IpLANnzoxw wwkpvYS8ZLSbQJJboW65 Be9daCrlNx4pHHFaOQG0 OUWaeHSvC5JjuB3eDzJe VFTqJFDqS3PrfLUe NTckM546WHvhRhL8IALj snIqI6CaKBYryIitJdY9 l8I6Kf2LZ4P3NG17UP42 yHDuz4W1hJK5J9Ed NTEsgapnoldcuGL9CMEo CPCizJ32Wl6fhQjqPd2k RFEgWXU8DIMqzRPxD7Ya aH0oCpZwTSKgGQZo L5LhpYHzLJiyO522HCmq GuM2HJLlbiRuO7TjMVAe aXvuGmI8z8E5Ij7BXQe1 OD13XH34yKQxl9X0 qEJ8F9FgGNRjihxtzsld uDI5EPGaOTUxxI71Yz6l hCqhQa3dANYgOJQ4FAGu oFPtV3DjbN0nRhGm HHDxWCSkR7ZnnBNbWCzn N207OYruFaE7WLQshbTw R2VqCCTjlGsqDpM3y7Z3 Kj6CKKPwED30CVE3 uTY7NP80FG45U9GvSkwi dGFibGU+PHRhYmxlIHdp ZHRoPScxMDAlJyBzdHls ZH7uTu4zUSHnIPDf kUuutCPgKfAjx9qiOPQk QBqrFO6crZonQ2IxhWO3 GUIhj3x5Ca01A85cA0Yr dXA+IBOezUA5uXA4 yO4zUqDuWdJ5GLllO801 QcXcuCKpIfexd5cle5sl cFo3RvN0BZRrlvFuuRdy VHN6i2LxCz08N59o IHdpZHRoPSIxNSUiIHZh vOxmcj0tgV9rLs1+PGNv yQG3gZB3mA9fHvAiGlO6 LLtlN503KcHnvAIf Rcjuo4hhp0wrwIw2PzAg WTHvdzUqyMgxQOR9v3Hl Lw04J5VqxJkwj7YgWft5 bm58sIMyd8W9fZU1 R1DxWBNyquuttGChdWnu IL6mKNIstgpbHPArwH0r ETRbJ1s2RfIaBpG4DPrz J4RrdnM8HGSldAKz KZcnKVH3C48no2L7BJNb XKObNWP2pCU6fF7qnDnz bjogbGVmdDsgdmVydGlj OOfqJJnnQ393MLSs kUorPFFsdT8pZRTsdBOq yGnoWK2tYEPqqfjyVcSF FJwtGLSWFF8QDFK4R7Uj Gfc0JXMqjWtfGQ2e fJIfXRwqLj4kaFtpcEhs LS2gXLMrggrkCAMoeZ0w PFMltCLvsDwkCJ7qQRCw zwaea486GySsVUO1 YXCzvDEoU1OxjF8pXoUe GFElCKWmH0ButRQcSNcu B139WPcfYeO2AGCwicCy A9ZuESBjkYwzXpI2 g7F0Mv8cFQ5gGX2gTSEk GH14EZ44tCMog4P4mPB4 R7IxZFIkrixthcfbbNR0 MHXtOPDeyF58oVEu WOyoQg2rr1N0u566EGRj VSStuP49It7jwLsiQTSf nBDAwX6ydjgxq8djeawh BgDpHEDgFVb7APx4 PNVdhKttRxZqFHN6BtZ3 WNV9jQLptT8zfLvciybn qE9pHuw+MjAgWWVhcnM8 H5BcFav3AODxfJsj SV8aaFGeHUvpHy1nnIwv aWxuTH5sCIOkcsrtEGIa eL5pVAYupYFidSkoCV5c MYFerkzrz632WiTx PPF0FFNkeZVrX1DirE8p JnVzCJWeQCAjW8EssZVq GQrwV182PCkqGdK0LXIg bvAnE1RxYOWxzWmf KiP4u0O9Yp3YIA7hlKE2 P8TiHsz4RAGssGewCE1e sBAuUPedRt5imQnccEun QP4yCYOmutfiIKTs cE1dMRQyjMNzkBdiIA8f WZTuxflra452SrEcRUQ3 GCFqyKCfC1ZcsJ2sCsAj QYNyFRBaM4XrgSPr ADaeS611SJywPpZ3QNSw wwChB6GnOZUuxVxgTpV9 r2P8Wu7EpTJgG6AlJ4q3 S0OdBedihFQ+PC90 OLThHL04mWExbKByb9uf jRw2HgJcXWHhKWJ3tQsc OHgvw5JgMVLpY18frEEo z2E2LDZqtZggrYGy LgNzmCY1bQ8mLNxyvimr w7dzohmkBrgre2fews36 eF29Q12mMLkjISIzQJBc BDXhKDWqgLyejk2x eK9zWb0+QCIrkZE1rGO7 aL7lNvSnExW8PBxuW167 DrKqoHOuFbrwg9lmy9ir hAk1NaFaPEPqruBy uLfjJSA6h2TrSd96W00q IHdpZHRoPSIyMCUiIHZh dIysyx4htA6xQl7+PC9j u0gmwx76pM12aGM+ IKNeQJV3qPrsIXvcFEQa gI0zSTlyTvZ7KCTsKfGp xE75uBIrNUmzNg5kzWvg fRtgRA2nKCGslrgl n450ZnSob9ilQYCtfVNi NBuhWHK8W11dc1F8ZKQz SXEwAAL0oIU3pE7kuQcx bjogbGVmdDsgdmVy lJuoCLlgHFoeL278GAXh aCxoPgFmaLUsD5pohxOM LX2mPvjvbCA+PHRkIHN0 zTmrEHgwCGSsvO2t HVNcD8m3UtEiKoH8JQfj N8XjzmA0JXAlfJMaBFIt pAISqJ8yhjavs6tbfhiy ZfUsEKXrXBp0RGu7 JBIzjMrwGvAbLSE3XmG9 DKM5lXIuwK7tkPojupfg lG4bTcl+RklOOjwvdGQ+ JFByZIM7dCipVSom DUSdzV3iMCTjM8x7VhTn WlR0MIwaA3OayqC8FQAd cJFaHKCsvFTMiB4wwtep l5ejrcwmGvTyLWCd AFr6LMk3ZZNjeBszLdFg ZUG0GnB0VFA0mVFheW3e zBwxfcsukZ2dTax+TVJO OjwvdGQ+PHRkIHN0 mAxhVGszNLDejX2yWGGy U5b8LqNuGdT7TFrxJ8Wi lfQ0ZSMsiOJtIVJpyQDD fX9nywqzt5lxrxxw YzDpEHVvCJu2ZVx8FUSf yLlmPbNtREG0HpY9SNL2 zJFzmN7snNfedxzbcM5z Oyc+XKJ0DCN5SU90 KO41I9VjFaqxkOHvbKW+ PHRhYmxlIHdpZHRoPScx PXYiHsNgxGujQZ8rHy4p ZGVyLWNvbGxhcHNl OiBj (more content not included)... Normal [facility] Discharge Instructionson Discharge Instructions [id number]#1.00CD:127 Normal [facility] ED Clinical Summaryon 2021 ED Clinical Summary [place] [id number] ED Clinical Summary Person Information Name: SHIV EVANGELISTA/[facility] Age: 21 Years : 2000 Sex: Female Language: Ukrainian PCP: OK TYSON DO Marital Status: Single [...] 11/25/2021 23:47:16 11/25/2021 23:47:16 11/25/2021 23:47:16 ADDRESS: [address] [place] [id number] [facility] SA[facility] DOC NOTES: MEDICAL INFORMATION: Prescriptions Given: Medications to Continue with No Changes Other Medications hydrOXYzine (Vistaril 25 mg Cap) 1-2 cap(s) By Mouth 4 times a day as needed as needed for anxiety. Refills: 0. PATIENT EDUCATION INFORMATION: Instructions: Migraine Headache Follow up: With: Address: When: OK HONEYCUTTGEOVANI [address] , [address] [address] Business (1) In 3 days DIAGNOSIS: Migraine headache Normal [facility] ED Note-Physicianon 11-27-19 ED Note-Physician Basic Information Time Seen: Kenia Rayray 11/25/2021 21:35 Chief Complaint pt reports hx [...] 5 mg/mL Inj, 10 mg, IV Push [id number] [F], 1000 mL, IV Disposition Plan Discharge Prescription List Prescriptions No active prescription medications Follow-up With When Contact Information OK TYSON In [address], [address] [place] [phone] Business (1) Additional Instructions: Patient Education Migraine [...] available. Diagnostic Results No qualifying data available. [facility] Comment on above: Result Comment: Elec tronically Signed By: Kenia DO, Rayray S.\.br\Date and Time Signed: 11/25/21 23:32 EDT ED [...] these instructions at home: Medicines ? Take sijx-wyh-megnvaf and prescription medicines only as told by your health care provider. ? Ask your health care provider if the medicine prescribed to you: ? Requires you to avoid driving or using heavy machinery. ? Can cause constipation. You may need to take these actions to prevent or treat constipation: ? Drink enough fluid to keep your urine pale yellow. ? Take iqbs-ome-hgfzpzq or prescription medicines. ? Eat foods that [...] different or (more content not included)... Normal [facility] ED Patient Summaryon 022 ED Patient Summary [address] [address] Patient Discharge Instructions Person Information Name: SHIV EVANGELISTA Age: 21 Years Arrival Date: 11/25/2021 18:57:45 Discharge Diagnosis: Migraine headache Primary Care Physician: OK TYSON DO Provider Information Primary Provider: Rayray Aquino DO [employer] Executive:None The exam and treatment you received in the Emergency Department were for an urgent problem and are not intended as complete care. It is important that you follow up with a doctor, nurse practitioner, or physician?s title i assistant for ongoing care. If your symptoms [...] Follow-up Instructions: With: Address: When: OK LOMBARDO , [facility] [address] [place] [address] Business (1) In 3 days In the event that this physician does not participate in your insurance network, please consult with your insurance company to find a nearby participating provider. Patient Education Materials: Migraine Headache A MESSAGE TO ALL PATIENTS REGARDING OPIOIDS PRESCRIPTION OPIOIDS: WHAT YOU NEED TO KNOW Prescription opioids can be used to help relieve owqdxdgf-iz-rprhef pain and are often prescribed following a [...] be struggling with addiction, tell your health care transport nurse and ask for guidance or call [facility]?S National Helpline at 4-156-779-HELP. v Source: US Department of Health and Human (more content not included)... Normal [facility] Progress Note-Nurseon 2021 Progress Note-Nurse Pt. brought back to ed bed 13 Normal [facility] Progress Note-Nurse Pt. states her headache is completely gone and she is ready to go home. Normal [facility] Consent for Treatmenton 11-10 Consent for Treatment [id number] #1.00CD:127 [facility] Urine culture routineOrdered By: Ok Tyson on 10-11-2021 Bacteria identified Cx Nom (U) Klebsiella pneumoniae [facility] Automated epithelial cells c ount in urine sediment (number/area)Ordered By: Ok Tyson on 10-09-2021 Epithelial cells Auto (Urine sed) [#/Area] 20-49 [HPF] 0-2 [facility] Automated erythrocytes count in urine sediment (number/area)Ordered By: Ok Tyson on 10-09-2021 RBC Auto (Urine sed) [#/Area] None seen [HPF] 0-4 [facility] Automated leukocytes count i n urine sediment (number/area)Ordered By: Ok Tyson on 10-09-2021 WBC Auto (Urine sed) [#/Area] 1-2 [HPF] 0-4 [facility] Automated urine hyaline cast s count (number/volume)Ordered By: Ok Tyson on 10-09-2021 Hyaline casts Auto (U) [#/Vol] None seen [LPF] 0-1 [facility] Bilirubin Test strip Ql (U)O rdered By: Ok Tyson on 10-09-2021 Bilirubin Ql (U) Negative Negative [facility] Color Auto (U)Ordered By: Anna Tyson on 10-09-2021 Color (U) Yellow Yellow [facility] Ketones Auto test strip (U) [Mass/Vol]Ordered By: Ok Tyson on 10-09-2021 Ketones (U) [Mass/Vol] Negative Negative [facility] Nitrite Test strip Ql (U)Ord ered By: Ok Tyson on 10-09-2021 Nitrite Ql (U) Negative Negative [facility] Protein Auto test strip (U) [Mass/Vol]Ordered By: Ok Tyson on 10-09-2021 Protein (U) [Mass/Vol] Negative Negative [facility] Specific gravity Auto test s trip (U) [Rel density]Ordered By: Ok Tyson on 10-09-2021 Specific gravity (U) [Rel density] 1.005 1.001-1.030 [facility] Urine bacteria detection by automated methodOrdered By: Ok Tyson on 10-09-2021 Bacteria Auto Ql (U) 3+ None Seen [facility] Urine clarity by refractomet ry automatedOrdered By: Ok Tyson on 10-09-2021 Clarity Refractometry automated (U) Clear Clear [facility] Urine glucose measurement by automated test strip (mass/volume)Ordered By: Ok Tyson on 10-09-2021 Glucose Auto test strip (U) [Mass/Vol] Normal mg/dL Normal [facility] Urine hemoglobin detection b y automated test stripOrdered By: Ok Tyson on 10-09-2021 Hemoglobin Auto test strip Ql (U) Negative Negative [facility] Urine leukocyte esterase det ection by automated test stripOrdered By: Ok Tyson on 10-09-2021 Leukocyte esterase Auto test strip Ql (U) 2+ Negative [facility] Urobilinogen Auto test strip (U) [Mass/Vol]Ordered By: Ok Tyson on 10-09-2021 Urobilinogen (U) [Mass/Vol] Normal mg/dL Normal [facility] pH Auto test strip (U)Ordere d By: Ok Tyson on 10-09-2021 pH (U) 7.0 [pH] 5.0-9.0 [facility] Albumin [Mass/volume] in Ser um or PlasmaOrdered By: Ok Tyson on 09-13-2021 Albumin [Mass/Vol] 4.5 g/dL 3.2-5.5 [facility] Creatinine and Glomerular fi ltration rate.predicted panel (S/P/Bld)Ordered By: Ok Tyson on 09-13-2021 Creatinine [Mass/Vol] 0.71 mg/dL 0.44-1.03 [facility] Estimated glomerular filtrat ion rate (GFR) non- AmericanOrdered By: Ok Tyson on 09-13-2021 GFR/1.73 sq M.predicted among non-blacks MDRD (S/P/Bld) [Vol rate/Area] > 60 mL/Min [facility] Globulin Calc (S) [Mass/Vol] Ordered By: Ok Tyson on 09-13-2021 Globulin (S) [Mass/Vol] 2.5 g/dL [facility] No Panel InformationOrdered By: Ok Tyson on 09-13-2021 Estimated GFR () > 60 mL/Min [facility] Comment on above: GFR estimated refere nce range: According to KDOQI guidelines, <60 ml/min/1.73m2 is sufficient to diagnose a patient with chronic kidney disease. Pharmacy Creatinine Clearance (Chem N/A [facility] Protein [Mass/volume] in Ser um or PlasmaOrdered By: Ok Tyson on 09-13-2021 Protein [Mass/Vol] 7.0 g/dL 6.1-7.9 [facility] Serum or plasma alanine schmid otransferase measurement without P-5'-P (enzymatic activiOrdered By: Ok Tyson on 09-13-2021 ALT No additional P-5'-P [Catalytic activity/Vol] 18 U/L 10-60 [facility] Serum or plasma albumin/glob ulin mass ratioOrdered By: Ok Tyson on 09-13-2021 Albumin/Globulin [Mass ratio] 1.8 {ratio} [facility] Serum or plasma alkaline pascale sphatase measurement (enzymatic activity/volume)Ordered By: Ok Tyson on 09-13-2021 ALP [Catalytic activity/Vol] 51 U/L 32-92 [facility] Serum or plasma aspartate am inotransferase measurement (enzymatic activity/volume)Ordered By: Ok Tyson on 09-13-2021 AST [Catalytic activity/Vol] 23 U/L 10-42 [facility] Serum or plasma calcium acosta urement (mass/volume)Ordered By: Ok Tyson on 09-13-2021 Calcium [Mass/Vol] 9.2 mg/dL 8.2-10.2 [facility] Serum or plasma chloride danis surement (moles/volume)Ordered By: Ok Tyson on 09-13-2021 Chloride [Moles/Vol] 104 mmol/L 95-114 [facility] Serum or plasma glucose acosta urement (mass/volume)Ordered By: Ok Tyson on 09-13-2021 Glucose [Mass/Vol] 82 mg/dL 70-100 [facility] Comment on above: ADA recommended refe rence range Random Glucose Reference Range is dependent on time and content of last meal. Glucose of more than 200 mg/dL in a nonstressed, ambulatory subject supports the diagnosis of Diabetes Mellitus. Serum or plasma potassium me asurement (moles/volume)Ordered By: Ok Tyson on 09-13-2021 Potassium [Moles/Vol] 3.4 mmol/L 3.5-5.1 [facility] Serum or plasma sodium measu rement (moles/volume)Ordered By: Ok Tyson on 09-13-2021 Sodium [Moles/Vol] 139 mmol/L 136-146 [facility] Serum or plasma total biliru bin measurement (mass/volume)Ordered By: Ok Tyson on 09-13-2021 Bilirubin [Mass/Vol] 0.4 mg/dL 0.3-1.2 [facility] Serum or plasma total carbon dioxide measurement (moles/volume)Ordered By: Ok Tyson on 09-13-2021 CO2 [Moles/Vol] 28.3 mmol/L 22.0-30.0 [facility] Serum or plasma urea nitroge n measurement (mass/volume)Ordered By: Ok Tyson on 09-13-2021 Urea nitrogen [Mass/Vol] 8 mg/dL 9-23 [facility] Q - Strep pneumo Ab 23 serot ypeson 06-15-2021 SEROTYPE 1 (1) 91.7 Normal [facility] [employer]iator Comment on above: Order Comment: [facility] Testing performed at: [facility], [employer],, [address] [place] [address], , Neurology Specialist: Angela Feng MD,PhD,MANOHAR [facility] Date/Time: [facility] Results Received Date/Time: [facility] Reported Date/Time: FASTING: NO Performed By: #### 1 [id number] #### [facility] Default [address] [place] [address] SEROTYPE 12 (12F) 3.7 Normal [facility] Comment on above: Order Comment: [facility] performed at: [facility] [employer], [employer],, [address] [place] [address], , Neurology Specialist: Angela Feng MD,PhD,MANOHAR [facility] Date/Time: [facility] Results Received Date/Time: [facility] Reported Date/Time: FASTING: NO Performed By: #### 1 [id number] #### [facility] Default [address] [place] [address] SEROTYPE 14 (14) 163.4 [facility] Comment on above: Order Comment: [facility] performed at: [employer],, [address] [place] [address], , Neurology Specialist: Angela Feng MD,PhD,MANOHAR [facility] Date/Time: [facility] Results Received Date/Time: [facility] Reported Date/Time: FASTING: NO Performed By: #### 1 [id number] #### [facility] Default [address] [place] [address] SEROTYPE 17 (17F) 4.6 Normal [facility] Comment on above: Order Comment: [facility] performed at: [facility], [employer],, [facility] [place], [place], , Neurology Specialist: Angela Feng MD,PhD,MANOHAR [facility] Date/Time: [facility] Results Received Date/Time: [facility] Reported Date/Time: FASTING: NO Performed By: #### 1 [id number] #### [facility] Default [address] [place] [address] SEROTYPE 19 (19F) 18.2 Normal [facility] Comment on above: Order Comment: [facility] performed at: [facility], [employer],, [address] [place], [place] [address], , Neurology Specialist: Angela Feng MD,PhD,MANOHAR [facility] Date/Time: [facility] Results Received Date/Time: [facility] Reported Date/Time: FASTING: NO Performed By: #### 1 [id number] #### [facility] Default [address] [place] [address] SEROTYPE 2 (2) 4.7 Normal [facility] Specialist Comment on above: Order Comment: [facility] performed at: [facility], [employer],, [address] [place], [place] [address], , Neurology Specialist: Angela Feng MD,PhD,MANOHAR [facility] Date/Time: [facility] Results Received Date/Time: [facility] Reported Date/Time: FASTING: NO Performed By: #### 1 [id number] #### [facility] Default [address] [place] [address] SEROTYPE 20 (20) 3.8 Normal [facility] Specialist Comment on above: Order Comment: [facility] performed at: [facility], [employer],, [address] [place] [address], , Neurology Specialist: Angela Feng MD,PhD,MANOHAR [facility] Date/Time: [facility] Results Received Date/Time: [facility] Reported Date/Time: FASTING: NO Performed By: #### 1 [id number] #### [facility] Default [address] [place] [address] SEROTYPE 22 (22F) 4.0 [facility] Comment on above: Order Comment: [facility] performed at: [facility], [employer],, [address] [place] [address], , Neurology Specialist: Angela Feng MD,PhD,MANOHAR [facility] Date/Time: [facility] Results Received Date/Time: [facility] Reported Date/Time: FASTING: NO Performed By: #### 1 [id number] #### [facility] Default [address] [place] [address] SEROTYPE 23 (23F) 5.7 [facility] Comment on above: Order Comment: [facility] performed at: [facility], [employer],, [address] [place] [address], , Neurology Specialist: Angela Feng MD,PhD,MANOHAR [facility] Date/Time: [facility] Results Received Date/Time: [facility] Reported Date/Time: FASTING: NO Performed By: #### 1 [id number] #### [facility] Default [address] [place] [address] SEROTYPE 26 (6B) 7.1 [facility] Comment on above: Order Comment: [facility] performed at: [facility], [employer],, [address] [place] [address], , Neurology Specialist: Angela Feng MD,PhD,MANOHAR [facility] Date/Time: [facility] Results Received Date/Time: [facility] Reported Date/Time: FASTING: NO Performed By: #### 1 [id number] #### [facility] Default [address] [place] [address] SEROTYPE 3 (3) 5.2 Normal [facility] Hostage Negotiator Comment on above: Order Comment: [facility] performed at: [facility], [employer],, [facility] [place], , Neurology Specialist: Angela Feng MD,PhD,MANOHAR [facility] Date/Time: [facility] Results Received Date/Time: [facility] Reported Date/Time: FASTING: NO Performed By: #### 1 [id number] #### [facility] Default [address] [place] [address] SEROTYPE 34 (10A) 20.3 Normal [facility] Specialist Comment on above: Order Comment: [facility] performed at: [facility], [employer],, [facility] [place], , Neurology Specialist: Angela Feng MD,PhD,MANOHAR [facility] Date/Time: [facility] Results Received Date/Time: [facility] Reported Date/Time: FASTING: NO Performed By: #### 1 [id number] #### [facility] Default [address] [place] [address] SEROTYPE 4 (4) 2.2 Normal [facility] Hostage Negotiator Comment on above: Order Comment: [facility] performed at: [facility], [employer],, [address] [place], [place], , Neurology Specialist: Angela Feng MD,PhD,MANOHAR [facility] Date/Time: [facility] Results Received Date/Time: [facility] Reported Date/Time: FASTING: NO Performed By: #### 1 [id number] #### [facility] Default [address] [place] [address] SEROTYPE 43 (11A) 10.7 Normal [facility] Comment on above: Order Comment: [facility] performed at: [facility], [employer],, [facility] [place], , Neurology Specialist: Angela Feng MD,PhD,MANOHAR [facility] Date/Time: [facility] Results Received Date/Time: [facility] Reported Date/Time: FASTING: NO Performed By: #### 1 [id number] #### [facility] Default [address] [place] [address] SEROTYPE 5 (5) 2.5 Normal [facility] Comment on above: Order Comment: [facility] performed at: [facility], [employer],, [facility] [place], , Neurology Specialist: Angela Feng MD,PhD,MANOHAR [facility] Date/Time: [facility] Results Received Date/Time: [facility] Reported Date/Time: FASTING: NO Performed By: #### 1 [id number] #### [facility] Default [address] [place] [address] SEROTYPE 51 (7F) 4.3 Normal [facility] Comment on above: Order Comment: [facility] performed at: [facility], [employer],, [address] [place], [place], , Neurology Specialist: Angela Feng MD,PhD,MANOHAR [facility] Date/Time: [facility] Results Received Date/Time: [facility] Reported Date/Time: FASTING: NO Performed By: #### 1 [id number] #### [facility] Default [address] [place] [address] SEROTYPE 54 (15B) 9.3 [facility] Comment on above: Order Comment: [facility] performed at: [facility], [employer],, [facility] [place], , Neurology Specialist: Angela Feng MD,PhD,MANOHAR [facility] Date/Time: [facility] Results Received Date/Time: [facility] Reported Date/Time: FASTING: NO Performed By: #### 1 [id number] #### [facility] Default [address] [place] [address] SEROTYPE 56 (18C) 15.2 [facility] Comment on above: Order Comment: [facility] performed at: [facility], [employer],, [facility] [place], , Neurology Specialist: Angela Feng MD,PhD,MANOHAR [facility] Date/Time: [facility] Results Received Date/Time: [facility] Reported Date/Time: FASTING: NO Performed By: #### 1 [id number] #### [facility] Default [address] [place] [address] SEROTYPE 57 (19A) 1.3 [facility] Comment on above: Order Comment: [facility] performed at: [facility], [employer],, [facility] [place], , Neurology Specialist: Angela Feng MD,PhD,MANOHAR [facility] Date/Time: [facility] Results Received Date/Time: [facility] Reported Date/Time: FASTING: NO Performed By: #### 1 [id number] #### [facility] Default [address] [place] [address] SEROTYPE 68 (9V) 2.5 Normal [facility] Comment on above: Order Comment: [facility] Testing performed at: [employer], [employer],, [address] [place] [address], , Neurology Specialist: Angela Feng MD,PhD,MANOHAR [facility] Date/Time: [id number] [facility] Results Received Date/Time: [facility] Reported Date/Time: FASTING: NO Performed By: #### 1 [id number] #### [facility] Default [address] [place] [address] SEROTYPE 70 (33F) 2.5 Normal [facility] Comment on above: Order Comment: [facility] performed at: [employer], [employer],, [address] [place] [address], , Neurology Specialist: Angela Feng MD,PhD,MANOHAR [facility] Date/Time: [facility] [...] serotype-specific titers may have less robust responses. [employer] uses a multi-analyte immunodetection (MAID) method. The method employs the Lumin[employer] SPINE flow cytometric system which measures multiple analytes [...] analytical performance characteristics have been determined by [employer]. It has not been cleared or approved by FDA. This assay has been validated pursuant to the CLIA regulations and used for clinical purposes. For additional information, please refer to http://education.Ex[employer]/faq/VVN295 (This link is being provided for informational/ educational purposes only.) Performed By: #### 1 [id number] #### [facility] Default [address] [place] [address] SEROTYPE 8 (8) 9.8 Normal [facility] Specialist Comment on above: Order Comment: [facility] Testing performed at: [employer],, [address] [place] [address], , Neurology Specialist: Angela Feng MD,PhD,MANOHAR [facility] Date/Time: [facility] Results Received Date/Time: [facility] Reported Date/Time: FASTING: NO Performed By: #### 1 [id number] #### [facility] Default [address] [place] [address] SEROTYPE 9 (9N) 2.8 Normal [facility] Specialist Comment on above: Order Comment: [facility] performed at: [employer], [employer],, [address] [place] [address], , Neurology Specialist: Angela Feng MD,PhD,MANOHAR [facility] Date/Time: [facility] Results Received Date/Time: [facility] Reported Date/Time: FASTING: NO Performed By: #### 1 [id number] #### [facility] Default [address] [place] [address] Office Visit (Pediatric Neur ology)on 05-30-2021 Follow-up [...] updates. My nurse is Yolanda Calvillo at [phone]. 8. 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 She will be at [employer]. She has also been diagnosed IGA deficiency, [...] Vitals V (more content not included)... Normal [facility] CHEMISTRYOrdered By: SYSTEM SYSTEM on 05-17-2021 Anion gap [Moles/Vol] 11 mmol/L Normal 6 - 16 mEq/L [facility] Remisol Calcium [Mass/Vol] 9.3 mg/dL Normal 8.9 - 11. 1 mg/dL [facility] Chloride [Moles/Vol] 103 mmol/L Normal 101 - 1 11 mmol/L [facility] CO2 [Moles/Vol] 27 mmol/L Normal 21 - 31 mmol/L [facility] Creatinine [Mass/Vol] 0.8 mg/dL Normal 0.5 - 1.3 mg/dL [facility] GFR/1.73 sq M.predicted among blacks MDRD (S/P/Bld) [Vol rate/Area] mL/min/1.73 m2 Normal >=59mL/min/1 .73 m2 [facility] S GFR/1.73 sq M.predicted among non-blacks MDRD (S/P/Bld) [Vol rate/Area] mL/min/1.73 m2 Normal >=59mL/min/1 .73 m2 [facility] Chem S Glucose [Mass/Vol] 152 mg/dL Normal [...] Normal 0.0 - 8.0 % [facility] HemeAutoSS Eosinophils/Leukocyte s Auto (Bld) [Pure # fraction] 0.1 E9/L Normal 0.0 - 0.5 E9/L [facility] HemeAutoSS Lymphocytes/100 WBC (Bld) 33.5 % Normal 14.0 - 50.0 % [facility] HemeAutoSS Lymphocytes/Leukocyte s Auto (Bld) [Pure # fraction] 2.0 E9/L Normal 1.0 - 4.0 E9/L [facility] HemeAutoSS Monocytes/100 WBC (Bld) 7.8 % Normal 4.0 - 14.0 % [facility] HemeAutoSS Monocytes/Leukocytes Auto (Bld) [Pure # fraction] 0.5 E9/L Normal 0.2 - 1.0 E9/L [facility] HemeAutoSS Neutrophils/100 WBC (Bld) 56.0 % Normal 36.0 - 75.0 % [facility] HemeAutoSS Neutrophils/Leukocyte s Auto (Bld) [Pure # fraction] 3.4 E9/L Normal 2.0 - 7.5 E9/L FT [facility]SS HEMATOLOGYOrdered By: Laury Alexandra on 05-17-2021 Erythrocyte distribution width (RBC) [Ratio] 13.0 % Normal 10.9 - 14.2 % [facility] Hematocrit (Bld) [Volume fraction] 36.6 % [...] [facility] Platelets (Bld) [#/Vol] 241.0 E9/L Normal 150.0 - 500.0 E9/L [facility]eAutoSS RBC (Bld) [#/Vol] 4.1 E12/L Low 4.3 - 5.9 E12/L [facility]eAutoSS WBC corrected for nucl RBC Auto (Bld) [#/Vol] 6.1 E9/L Normal 4.0 - 11.0 E9/L [facility] SEROLOGYOrdered By: Genevieve jimenez on 05-17-2021 HCG.beta subunit (U) [Moles/Vol] Negative Normal [facility] [place] [facility] URINALYSISOrdered By: Genevieve collins on [...] PM) Normal Negative [facility] UA Auto SS [place].plasma/Lithiu m.RBC (Bld) [Mass ratio] >75 /HPF Invalid Interpretation [...] [facility] UA Auto SS Urobilinogen Qn (U) 0.5902498 {Deny'U}/dL Normal 0.0 - 1.0 EU/dL [facility] UA Auto SS WBC Auto Ql (U) Negative (05/17/21 9:31 PM) Normal Negative [facility] UA Auto SS WBC LM.HPF (Urine sed) [#/Area] 0-5 /HPF Normal 0-5/HPF [facility] UA Auto SS Q - Diptheria/Tetanus Abon 0 - DIPHTHERIA ANTITOXOID 0.59 IU/mL Normal [facility] [place] [facility] Negotiator Comment on above: Order Comment: [facility] performed at: [facility], [employer], [address], [place], [place], , Neurology Specialist: Gurmeet Rabago M.D.,PhD [facility] Collection Date/Time: Quest [...] analytical performance characteristics have been determined by [employer] [place]. It has not been cleared or approved by the U.S. Food and Drug Administration. This assay has been validated pursuant to the CLIA regulations and is used for clinical purposes. Performed By: #### 1 6963X, 56748K, 43450C, 31875E, 83314N, 39731B, 98205 #### [facility] Default [address] [place] [address] TETANUS ANTITOXOID 0.71 IU/mL Normal [facility] [place] [employer] Negotiator Comment on above: Order Comment: [facility] performed at: [facility], [employer], [address], [place], [place], , Neurology Specialist: Gurmeet Rabago M.D.,PhD [facility] Date/Time: Quest [...] analytical performance characteristics have been determined by [employer] [place]. It has not been cleared or approved by the U.S. Food and Drug Administration. This assay has been validated pursuant to the CLIA regulations and is used for clinical purposes. Performed By: #### 1 6963X, 13018Y, 49767X, 27268B, 83165Q, 82461A, 48078 #### [facility] Default [address] [place] [address] Q - HIV AB, HIV 1/2, EIAon 0 04-13-2021 HIV AG/AB, 4TH GEN Non-Reactive Normal NON-REACTIVE No rthern [place] Hostage Negotiator Comment on above: Order Comment: [facility] performed at: [employer], [employer] [facility], [address], [address] [place] [address], [address], Neurology Specialist: David Mancilla MD [facility] Date/Time: [facility] [...] purpose. For additional information please refer to http://education.OLX/faq/YTQ833 (This link is being provided for informational/ educational purposes only.) The performance of this assay has not been clinically validated in patients less than 2 years old. Performed By: #### 1 6963X, 21486K, 66321H, 16044U, 39628R, 54581V, 05823 #### [facility] Default [address] [place] [address] Q - IGA,SERUMon 04-13-2021 IMMUNOGLOBULIN A 58 mg/dL Normal 47-310 [facility] Comment on above: Order Comment: [facility] performed at: [facility] [facility], [address], [address] [place], [address], Neurology Specialist: David Mancilla MD [facility] Date/Time: [facility] Results Received Date/Time: [facility] Reported Date/Time: Performed By: #### 1 6963X, 28525I, 10683P, 18288G, 09345M, 90987A, 55976 #### [facility] Default [address] [place] [address] Q - IGE,SERUMon 04-13-2021 IMMUNOGLOBULIN E 7 kU/L Normal [facility] Comment on above: Order Comment: [facility] performed at: [employer], [employer] [facility], [address] [facility], [address] [place] [address], [address] [place] [address], Neurology Specialist: David Mancilla MD [facility] Date/Time: [facility] Results Received Date/Time: [facility] Reported Date/Time: Performed By: #### 1 6963X, 22763U, 65650X, 24667H, 75696Y, 16465U, 68494 #### [facility] Default [address] [place] [address] Q - IGG,SERUMon 04-13-2021 IMMUNOGLOBULIN G 912 mg/dL Normal 600-1640 [facility] Specialist Comment on above: Order Comment: [facility] performed at: [employer], [employer] [facility], 5 [facility], [address] [place] [address], [address] [place] [address], Neurology Specialist: David Mancilla MD [facility] Date/Time: [facility] Results Received Date/Time: [facility] Reported Date/Time: Performed By: #### 1 6963X, 71565J, 80508Y, 49241S, 22811V, 52035T, 00707 #### [facility] Default [address] [place] [address] Q - IGM,SERUMon 04-13-2021 IMMUNOGLOBULIN M 73 mg/dL Normal 50-300 [facility] Specialist Comment on above: Order Comment: [facility] performed at: [employer], [employer] [facility], [address] [facility], [address] [place] [address], [address] [place] [address], Neurology Specialist: David Mancilla MD [facility] Date/Time: [facility] Results Received Date/Time: [facility] Reported Date/Time: Performed By: #### 1 6963X, 35173A, 01679W, 63911G, 40642A, 13911L, 94938 #### [facility] Default [address] [place] [address] Q - Strep pneumo Ab 23 serot ypeson 04-13-2021 SEROTYPE 1 (1) 0.8 Normal [facility] Comment on above: Order Comment: [facility] performed at: [facility], [employer],, [address] [place], [place], , Neurology Specialist: Angela Feng MD,PhD,MANOHAR [facility] Collection Date/Time: [facility] Results Received Date/Time: [facility] Reported Date/Time: Performed By: #### 1 6963X, 18118P, 67027G, 59525B, 26850H, 17896P, 86582 #### [facility] Default [address] [place] [address] SEROTYPE 12 (12F) <0.3 Normal [facility] Comment on above: Order Comment: [facility] performed at: [facility], [employer],, [address] [place], [place], , Neurology Specialist: Angela Feng MD,PhD,MANOHAR [facility] Collection Date/Time: [facility] Results Received Date/Time: [facility] Reported Date/Time: Performed By: #### 1 6963X, 91795B, 36467G, 54687V, 01327O, 56243O, 20536 #### [facility] Default [address] [place] [address] SEROTYPE 14 (14) 1.1 Normal [facility] Comment on above: Order Comment: [facility] performed at: [facility], [employer],, [address] [place], [place], , Neurology Specialist: Angela Feng MD,PhD,MANOHAR [facility] Collection Date/Time: [facility] Results Received Date/Time: [facility] Reported Date/Time: Performed By: #### 1 6963X, 82023H, 23212M, 98856U, 92603L, 61081X, 77314 #### [facility] Default [address] [place] [address] SEROTYPE 17 (17F) 1.9 Normal [facility] Specialist Comment on above: Order Comment: [facility] performed at: [facility], [employer],, [address] [place] [address], , Neurology Specialist: Angela Feng MD,PhD,MANOHAR [facility] Collection Date/Time: [facility] Results Received Date/Time: [facility] Reported Date/Time: Performed By: #### 1 6963X, 63277I, 80695I, 02610D, 39401H, 59203C, 69341 #### [facility] Default [address] [place] [address] SEROTYPE 19 (19F) 2.3 Normal [facility] Comment on above: Order Comment: [facility] performed at: [facility], [employer],, [address] [place] [address], , Neurology Specialist: Angela Feng MD,PhD,MANOHAR [facility] Collection Date/Time: [facility] Results Received Date/Time: [facility] Reported Date/Time: Performed By: #### 1 6963X, 90973S, 11350B, 56842E, 31137J, 33330B, 02301 #### [facility] Default [address] [place] [address] SEROTYPE 2 (2) <0.3 Normal [facility] Hostage Negotiator Comment on above: Order Comment: [facility] performed at: [facility], [employer],, [address] [place], [place], , Neurology Specialist: Angela Feng MD,PhD,MANOHAR [facility] Collection Date/Time: [facility] Results Received Date/Time: [facility] Reported Date/Time: Performed By: #### 1 6963X, 99655C, 10619Q, 98304P, 78590F, 35216I, 09103 #### [facility] Default [address] [place] [address] SEROTYPE 20 (20) 1.0 [facility] Comment on above: Order Comment: [facility] Testing performed at: , [employer],, [address] [place] [address], , Neurology Specialist: Angela Feng MD,PhD,MANOHAR [facility] Collection Date/Time: [facility] Results Received Date/Time: [facility] Reported Date/Time: Performed By: #### 1 6963X, 75522E, 41755S, 29151N, 77924M, 02585L, 98589 #### [facility] Default [address] [place] [address] SEROTYPE 22 (22F) <0.3 [facility] Comment on above: Order Comment: [facility] Testing performed at: [employer], [employer],, [address] [place] [address], , Neurology Specialist: Angela Feng MD,PhD,MANOHAR [facility] Collection Date/Time: [facility] Results Received Date/Time: [facility] Reported Date/Time: Performed By: #### 1 6963X, 42291B, 65002P, 80024R, 83796Q, 67446M, 56484 #### [facility] Default [address] [place] [address] SEROTYPE 23 (23F) 3.6 [facility] Comment on above: Order Comment: [facility] Testing performed at: [facility], [employer],, [facility] [place], [place], , Neurology Specialist: Angela Feng MD,PhD,MANOHAR [facility] Collection Date/Time: [facility] Results Received Date/Time: [facility] Reported Date/Time: Performed By: #### 1 6963X, 90089P, 55689J, 34617R, 79302H, 47649U, 05205 #### [facility] Default [address] [place] [address] SEROTYPE 26 (6B) 4.5 Normal [facility] Specialist Comment on above: Order Comment: [facility] Testing performed at: [facility], [employer],, [address] [place] [address], , Neurology Specialist: Angela Feng MD,PhD,MANOHAR [facility] Collection Date/Time: [facility] Results Received Date/Time: [facility] Reported Date/Time: Performed By: #### 1 6963X, 64624H, 66557U, 66754P, 46253V, 60350I, 13145 #### [facility] Default [address] [place] [address] SEROTYPE 3 (3) 1.7 Normal [facility] Hostage Negotiator Comment on above: Order Comment: [facility] Testing performed at: [facility], [employer],, [address] [place] [address], , Neurology Specialist: Angela Feng MD,PhD,MANOHAR [facility] Collection Date/Time: [facility] Results Received Date/Time: [facility] Reported Date/Time: Performed By: #### 1 6963X, 95982T, 85553I, 38084O, 41607X, 44884A, 37617 #### [facility] Default [address] [place] [address] SEROTYPE 34 (10A) 1.6 Normal [facility] Comment on above: Order Comment: [facility] Testing performed at: [facility], [employer],, [address] [place] [address], , Neurology Specialist: Angela Feng MD,PhD,MANOHAR [facility] Collection Date/Time: [facility] Results Received Date/Time: [facility] Reported Date/Time: Performed By: #### 1 6963X, 26583C, 95627K, 45907Y, 28004W, 08572S, 74443 #### [facility] Default [address] [place] [address] SEROTYPE 4 (4) 0.4 Normal [facility] Specialist Comment on above: Order Comment: [facility] Testing performed at: [facility], [employer],, [address] [place] [address], , Neurology Specialist: Angela Feng MD,PhD,MANOHAR [facility] Collection Date/Time: [facility] Results Received Date/Time: [facility] Reported Date/Time: Performed By: #### 1 6963X, 27093O, 73592B, 98454T, 26763N, 84630O, 53250 #### [facility] Default [address] [place] [address] SEROTYPE 43 (11A) 0.9 Normal [facility] Comment on above: Order Comment: [facility] Testing performed at: [facility], [employer],, [address] [place] [address], , Neurology Specialist: Angela Feng MD,PhD,MANOHAR [facility] Collection Date/Time: [facility] Results Received Date/Time: [facility] Reported Date/Time: Performed By: #### 1 6963X, 44372Y, 29865O, 85272D, 69710V, 66421A, 44575 #### [facility] Default [address] [place] [address] SEROTYPE 5 (5) 0.6 Normal [facility] Specialist Comment on above: Order Comment: [facility] performed at: [facility], [employer],, [facility] [place], [place], , Neurology Specialist: Angela Feng MD,PhD,MANOHAR [facility] Collection Date/Time: [facility] Results Received Date/Time: [facility] Reported Date/Time: Performed By: #### 1 6963X, 89564L, 58064E, 22283U, 34990N, 29007H, 75236 #### [facility] Default [address] [place] [address] SEROTYPE 51 (7F) 0.4 Normal [facility] Comment on above: Order Comment: [facility] Testing performed at: [facility], [employer],, [address] [place] [address], , Neurology Specialist: Angela Feng MD,PhD,MANOHAR [facility] Collection Date/Time: [facility] Results Received Date/Time: [facility] Reported Date/Time: Performed By: #### 1 6963X, 19258U, 56112O, 01465H, 67760W, 75894W, 19787 #### [facility] Default [address] [place] [address] SEROTYPE 54 (15B) <0.3 Normal [facility] Comment on above: Order Comment: [facility] performed at: [facility], [employer],, [address] [place], [place], , Neurology Specialist: Angela Feng MD,PhD,MANOHAR [facility] Collection Date/Time: [facility] Results Received Date/Time: [facility] Reported Date/Time: Performed By: #### 1 6963X, 90172C, 30222S, 37741X, 63864F, 78173A, 13867 #### [facility] Default [address] [place] [address] SEROTYPE 56 (18C) 1.1 Normal [facility] Comment on above: Order Comment: [facility] Testing performed at: [facility], [employer],, [address] [place] [address], , Neurology Specialist: Angela Feng MD,PhD,MANOHAR [facility] Collection Date/Time: [facility] Results Received Date/Time: [facility] Reported Date/Time: Performed By: #### 1 6963X, 28392X, 28150F, 50524X, 18662A, 77715F, 44765 #### [facility] Default [address] [place] [address] SEROTYPE 57 (19A) 0.4 Normal [facility] Comment on above: Order Comment: [facility] Testing performed at: [facility], [employer],, [address] [place] [address], , Neurology Specialist: Angela Feng MD,PhD,MANOHAR [facility] Collection Date/Time: [facility] Results Received Date/Time: [facility] Reported Date/Time: Performed By: #### 1 6963X, 31673Q, 30240I, 52063E, 58891O, 33298H, 39194 #### [facility] Default [address] [place] [address] SEROTYPE 68 (9V) 0.5 Normal [facility] Comment on above: Order Comment: [facility] Testing performed at: [facility], [employer],, [address] [place] [address], [place], , Neurology Specialist: Angela Feng MD,PhD,MANOHAR [facility] Collection Date/Time: [facility] Results Received Date/Time: [facility] Reported Date/Time: Performed By: #### 1 6963X, 90829M, 86067S, 50356F, 68703D, 73458V, 22008 #### [facility] Default [address] [place] [address] SEROTYPE 70 (33F) 0.3 Normal [facility] Comment on above: Order Comment: [facility] Testing performed at: , [employer],, [address] [place] [address], , Neurology Specialist: Angela Feng MD,PhD,MANOHAR [facility] Collection Date/Time: Quest [...] serotype-specific titers may have less robust responses. [employer] uses a multi-analyte immunodetection (MAID) method. The method employs the Kontron flow cytometric system which measures multiple analytes [...] analytical performance characteristics have been determined by [employer]. It has not been cleared or approved by FDA. This assay has been validated pursuant to the CLIA regulations and used for clinical purposes. For additional information, please refer to http://education.Exosite.[employer]/faq/UPV905 (This link is being provided for informational/ educational purposes only.) Performed By: #### 1 6963X, 63860F, 55772P, 01438Z, 83608C, 32396L, 77098 #### [facility] Default [address] [place] [address] SEROTYPE 8 (8) 0.3 Normal [facility] Specialist Comment on above: Order Comment: [facility] Testing performed at: [employer],, [address] [place] [address], , Neurology Specialist: Angela Feng MD,PhD,MANOHAR [facility] Collection Date/Time: [facility] Results Received Date/Time: [facility] Reported Date/Time: Performed By: #### 1 6963X, 68500O, 08814S, 42975O, 60196D, 57312J, 80598 #### [facility] Default [address] [place] [address] SEROTYPE 9 (9N) <0.3 Normal [facility] Comment on above: Order Comment: [facility] Testing performed at: [employer], [employer],, [address] [place] [address], , Neurology Specialist: Angela Feng MD,PhD,MANOHAR [facility] Collection Date/Time: [facility] Results Received Date/Time: [facility] Reported Date/Time: Performed By: #### 1 6963X, 58950Q, 82629F, 61944K, 67184J, 01514I, 35249 #### [facility] Default [address] [place] [address] Chart Updateon 04-12-2021 Chart Update Chart Update Shiv had a migraine today and was unable to attend class. Signatures Electronically signed by : Chica Whitmore, JOSE-RUBBER WASHER FIRE CONTROL TECHNICIAN-THREAD MILLING MACHINE SET UP OPERATOR; Apr 12 2021 3:16PM EST (Author) Normal [facility] COVID + FLU Quick Testingon 04-04-2021 SARS-CoV-2 (COVID-19) RNA PAMELA+probe Ql (Unsp spec) Negative [facility] Other COVID + FLU Quick Testing Negative [facility] Other Office Visit (Pediatric Neur ology)on 03-22-2021 Follow-up visit Diagnoses/Problems Migraine (346.90) (G43.909) Anxiety (300.00) (F41.9) Orders Migraine Start: Verapamil HCl - 40 MG Oral Tablet; TAKE 1 TABLET 3 times daily MRI Brain without Contrast; Status:Hold For - Scheduling; Requested for:[id number]; Does patient have exposure to metal fragments? : N Radiologist to Determine Optimal Study : Y Requesting physician's phone/pager number? : [phone] Does the patient have a Cochlear Implant, Pacemaker, Defibrilator, Pacing Wire, Brain Aneurysm Clip, Implanted Nerve or Bone Graft Simulator, Implanted Breast Tissue Batch Room Technician, Glucose Monitor, or Neulasta Device? : No [...] updates. My nurse is Yolanda Calvillo at [phone]. 8. Follow up in 2-3 months with [...] at headach (more content not included)... Normal [facility] XR Abdomen Single View (KUB) *on 03-08-2021 XR Abdomen Single View (KUB)* HISTORY: Nausea and generalized abdominal pain. Chronic constipation. COMPARISON: CT 11/12/2019 RESULT: Nonspecific nondilated bowel gas pattern. Feces throughout the colon. No abnormal calcifications. No acute osseous findings. Lung bases unremarkable. No other significant abnormality. IMPRESSION: No acute radiographic findings. Report reported and signed by Butch Sanchez on 03/08/2021 194 Normal [facility] Hostage Negotiator Cnekt Testingon 2021 Result Negative [facility] Other COVID Quick Testingon 2020 Result Negative [facility] Other COVID Quick Testingon 2020 Result Negative [facility] Other Quick Strepon 11-19-2020 S. pyogenes Org specific cx Ql (Throat) Negative [facility] Other Quick Strep [facility] Other CNTHERAPYon 11-13-2020 CNTHERAPY OT/PT/Speech Visit ([facility]) SHIV EVANGELISTA ([id number]) 2 F Date Time Provider Department 11/13/20 10:45 AM LYNN POTTS [facility] Date Time Provider Department [place] 11/13/2020 10:45 AM [id number], MEGAN [facility] Reason for Visit: Physical Therapy [503] PT Discharge [282] Visit Diagnosis:Spasm of muscle [M62.838] Allergies As [...] Take 2 tablets by mouth twice daily. Normal [facility] CNTHERAPYon 11-09-2020 CNTHERAPY OT/PT/Speech Visit ([facility]) SHIV EVANGELISTA ([id number]) 2 F Date Time Provider Department 11/09/20 11:30 AM ALEXANDRA SUAREZ Date Time Provider Department [place] 11/09/2020 11:30 AM [id number] SUAREZ [facility] Reason for Visit: [...] mouth every 4 hours as needed. - .07/09, 28, 1.5 mg-30 mcg (21)/75 mg (7) [...] Planned: 8 Planned Treatment Interventions: Therapeutic exercise (50236);Neuromuscula r re-education (88259);Manual therapy (38027);Therapeutic activities (79983);Self-senior care management (10999);Patient/Fami ly/Caregiver Education;Biofeedbac k Pelvic (64590,82847) PLAN FOR NEXT VISIT: toileting positions, colon [...] Family Intake Information: Prescription present Previous Treatment: Candy Waffle Assembler (more content not included)... Normal [facility] Office Visit (Pediatric Neur ology)on 08-30-2020 Follow-up [...] updates. My nurse is Yolanda Calvillo at [phone]. 8. Follow up in 2-3 months with updates in the interim. Chief Complaint Follow up POTS Accompanied by mother. History of Present Illness Shiv is a 20 year old young woman with POTS, anxiety and headaches. She is taking 2 summer courses. [facility] [employer] [facility] and is taking her courses through [employer]. She stopped all her [...] holidays as well. She still works at [employer]. She denies any thoughts about hurting herself [...] MG Oral Tablet Vitals Vital Signs Recorded: [id number] 01:02PM [id number] lb 7.31 oz 2-20 Weight Njithxdgfa18 % Physical Exam Constitutional - Well dressed, [...] bilaterally. Fundoscopi (more content not included)... Normal [facility] Adulton Psychiatry Adult No report was sent Normal [facility] Provider Orderson 01-17-2020 Provider Orders [id number] Normal [facility] Vital Signs Date Time Vital Sign Value Performing Clinician Facility 01-02-2024 17:15-0500 Body mass index (BMI) [Ratio] 25.24 kg/m2 Yaritza Micheal MIX TECHNICIAN Work Phone: [facility] 01-02-2024 17:15-0500 Body temperature 98.01 [degF] Yaritza Micheal MIX TECHNICIAN Work Phone: [facility] 01-02-2024 17:15-0500 Body weight 62.6 kg Yaritza Micheal MIX TECHNICIAN Work Phone: [facility] 01-02-2024 17:15-0500 Heart rate 100 /min Yaritza Gonzalez MIX TECHNICIAN Work Phone: [facility] 01-02-2024 17:15-0500 SaO2% (BldA) [Mass fraction] 99 % Yaritza Micheal MIX TECHNICIAN Work Phone: [facility] 12-24-2023 13:55-0500 Body mass index (BMI) [Ratio] 25.28 kg/m2 Suzan Patrick MIX TECHNICIAN Work Phone: [facility] 12-24-2023 13:55-0500 Body temperature 98.71 [degF] Suzan Patrick MIX TECHNICIAN Work Phone: [facility] 12-24-2023 13:55-0500 Body weight 62.7 kg Suzan Patrick MIX TECHNICIAN Work Phone: [facility] 12-24-2023 13:55-0500 Diastolic blood pressure 62 mm[Hg] Suzan Quinonesradha MIX TECHNICIAN Work Phone: [facility] 12-24-2023 13:55-0500 Heart rate 96 /min Suzan Patrick MIX TECHNICIAN Work Phone: [facility] 12-24-2023 13:55-0500 SaO2% (BldA) [Mass fraction] 97 % Suzan Patrick MIX TECHNICIAN Work Phone: [facility] 12-24-2023 13:55-0500 Systolic blood pressure 118 mm[Hg] Suzan Patrick MIX TECHNICIAN Work Phone: [facility] 11-25-2023 14:49-0400 Body mass index (BMI) [Ratio] 25.15 kg/m2 Navid Alondra DO Work Phone: [facility] 11-25-2023 14:49-0400 Body weight 62.37 kg Navid Alondra DO Work Phone: [facility] 11-25-2023 14:49-0400 Diastolic blood pressure 68 mm[Hg] Navid Alondra DO Work Phone: [facility] 11-25-2023 14:49-0400 Systolic blood pressure 118 mm[Hg] Navid Alondra DO Work Phone: [facility] 07-04-2023 10:15-0400 Body height 157.48 cm DO Ok Vasmaritzak Work Phone: [facility] 07-04-2023 10:15-0400 Body mass index (BMI) [Ratio] 23.8 kg/m2 DO Ok Vaschak Work Phone: [facility] 07-04-2023 10:15-0400 Body weight 58.96 kg DO Ok Vaschak Work Phone: [facility] 07-04-2023 10:15-0400 Diastolic blood pressure 70 mm[Hg] DO Ok Vaschak Work Phone: [facility] 07-04-2023 10:15-0400 Heart rate 72 /min DO Ok Vaschak Work Phone: [facility] 07-04-2023 10:15-0400 Respiratory rate 18 /min DO Ok Charleschak Work Phone: [facility] 07-04-2023 10:15-0400 SaO2% (BldA) [Mass fraction] 98 % DO Ok Giacomok Work Phone: [facility] 07-04-2023 10:15-0400 Systolic blood pressure 124 mm[Hg] DO Ok Giacomok Work Phone: [facility] 09-20-2022 08:00-0400 Body temperature 97.9 [degF] DO Ok Giacomok Work Phone: [facility] 09-20-2022 08:00-0400 Diastolic blood pressure 74 mm[Hg] DO Ok Giacomok Work Phone: [facility] 09-20-2022 08:00-0400 Heart rate 73 /min DO Ok Giacomok Work Phone: [facility] 09-20-2022 08:00-0400 Respiratory rate 18 /min DO Ok Giacomok Work Phone: [facility] 09-20-2022 08:00-0400 SaO2% (BldA) [Mass fraction] 98 % DO Ok Marbella Work Phone: [facility] 09-20-2022 08:00-0400 Systolic blood pressure 118 mm[Hg] DO Ok Giacomok Work Phone: [facility] 09-18-2022 08:29-0400 Body height 157.48 cm DO Ok Giacomok Work Phone: [facility] 09-18-2022 08:29-0400 Body weight 72.57 kg DO Ok Giacomok Work Phone: [facility] 08-10-2022 17:06-0400 Diastolic blood pressure 78 mm[Hg] DO Ok Vasmaritzak Work Phone: [facility] 08-10-2022 17:06-0400 Heart rate 105 /min DO Ok Giacomok Work Phone: [facility] 08-10-2022 17:06-0400 Systolic blood pressure 133 mm[Hg] DO Ok Giacomok Work Phone: [facility] 08-10-2022 17:00-0400 Respiratory rate 16 /min DO Ok Giacomok Work Phone: [facility] 08-10-2022 16:38-0400 SaO2% (BldA) [Mass fraction] 98 % DO Ok Giacomok Work Phone: [facility] 11-25-2021 23:45-0400 Diastolic blood pressure 71 mm[Hg] Rayray Kenia [facility] 11-25-2021 23:45-0400 Heart rate 77 /min Rayray Kenia [facility] 11-25-2021 23:45-0400 Hourly Rounding Rayray Kenia [facility] 11-25-2021 23:45-0400 Respiratory rate 18 /min Rayray Kenia [facility] 11-25-2021 23:45-0400 SaO2% (BldA) [Mass fraction] 100 % Rayray Kenia [facility] 11-25-2021 23:45-0400 Systolic blood pressure 105 mm[Hg] Rayray Kenia [facility] 11-25-2021 22:00-0400 Diastolic blood pressure 83 mm[Hg] Rayray Kenia [facility] 11-25-2021 22:00-0400 Heart rate 69 /min Rayray Kenia [facility] 11-25-2021 22:00-0400 Hourly Rounding Rayray Kenia [facility] 11-25-2021 22:00-0400 Respiratory rate 14 /min Rayray Kenia [facility] 11-25-2021 22:00-0400 Systolic blood pressure 123 mm[Hg] Rayray Kenia [facility] 11-25-2021 19:00-0400 Body temperature 98.42 [degF] Rayray Kenia [facility] 11-25-2021 19:00-0400 Diastolic blood pressure 81 mm[Hg] Rayray Kenia [facility] 11-25-2021 19:00-0400 Heart rate 79 /min Rayray Kenia [facility] 11-25-2021 19:00-0400 Hourly Rounding Rayray Kenia [facility] 11-25-2021 19:00-0400 Respiratory rate 12 /min Rayray Kenia [facility] 05-30-2021 12:44-0400 Body height 160 cm Terence Pyle Work Phone: ZC-Zwytoevrj-Dyybxva y H DO Work Phone: 05-30-2021 12:44-0400 Body mass index (BMI) [Ratio] 19.65 kg/m2 Terence Pyle Work Phone: TI-Mbdpdfjuh-Cyznuup y H DO Work Phone: 05-30-2021 12:44-0400 Body surface area Derived from formula 1.5 m2 Terence Pyle Work Phone: NR-Jsqktvyyz-Zepltii y H DO Work Phone: 05-30-2021 12:44-0400 Body temperature 98.5 [degF] Terence Pyle Work Phone: WB-Vtdhhggxq-Fcqqoch y H DO Work Phone: 05-30-2021 12:44-0400 Body weight 50.3 kg Terence Pyle Work Phone: IK-Hysckklxt-Xclqibn y H DO Work Phone: 05-30-2021 12:44-0400 Diastolic blood pressure 74 mm[Hg] Terence Pyle Work Phone: GN-Omfwdumsm-Dapkaek y H DO Work Phone: 05-30-2021 12:44-0400 Heart rate 74 /min Terence Pyle Work Phone: AD-Kymhcklqz-Ipgoufa y H DO Work Phone: 05-30-2021 12:44-0400 Systolic blood pressure 120 mm[Hg] Terence Pyle Work Phone: QB-Qqhriumoc-Pwttjnw y H DO Work Phone: 05-17-2021 23:00-0400 Diastolic blood pressure 61 mm[Hg] [facility] 05-17-2021 23:00-0400 Heart rate 81 /min [facility] 05-17-2021 23:00-0400 SaO2% (BldA) [Mass fraction] 97 % [facility] 05-17-2021 23:00-0400 Systolic blood pressure 106 mm[Hg] [facility] 05-17-2021 20:48-0400 Body temperature 98.6 [degF] [facility] 05-17-2021 20:48-0400 Diastolic blood pressure 83 mm[Hg] [facility] 05-17-2021 20:48-0400 Heart rate 97 /min [facility] 05-17-2021 20:48-0400 Respiratory rate 16 /min [facility] 05-17-2021 20:48-0400 SaO2% (BldA) [Mass fraction] 98 % [facility] 05-17-2021 20:48-0400 Systolic blood pressure 128 mm[Hg] [facility] 04-04-2021 14:45-0500 Body height 157.48 cm Albert White Other [employer] Other 04-04-2021 14:45-0500 Body mass index (BMI) [Ratio] 20.3 kg/m2 Albert White Other [employer] Other 04-04-2021 14:45-0500 Body temperature 100 [degF] Albert White Other [employer] Other 04-04-2021 14:45-0500 Body weight 50.35 kg Albert White Other [employer] Other 04-04-2021 14:45-0500 Respiratory rate 16 /min Albert White Other [employer] Other 04-04-2021 14:45-0500 SaO2% (BldA) [Mass fraction] 99 % Albert White Other [employer] Other 2021 10:00-0500 Body height 157.48 cm Pankaj Berger Other [employer] Other 2021 10:00-0500 Body mass index (BMI) [Ratio] 20.3 kg/m2 Pankaj Berger Other [employer] Other 2021 10:00-0500 Body weight 50.35 kg Pankaj Berger Other [employer] Other 2021 10:00-0500 Diastolic blood pressure 67 mm[Hg] Pankaj Berger Other [employer] Other 2021 10:00-0500 Systolic blood pressure 108 mm[Hg] Pankaj Berger Other [employer] Other 12-13-2020 13:10-0400 Body height 157.48 cm Chacho Domingo Other [employer] Other 12-13-2020 13:10-0400 Body mass index (BMI) [Ratio] 21.03 kg/m2 Chacho Domingo Other [employer] Other 12-13-2020 13:10-0400 Body temperature 98.4 [degF] Chacho Domingo Other [employer] Other 12-13-2020 13:10-0400 Body weight 52.16 kg Chacho Domingo Other [employer] Other 12-13-2020 13:10-0400 Diastolic blood pressure 81 mm[Hg] Chacho Domingo Other [employer] Other 12-13-2020 13:10-0400 SaO2% (BldA) [Mass fraction] 100 % Chacho Domingo Other [employer] Other 12-13-2020 13:10-0400 Systolic blood pressure 127 mm[Hg] Chacho Domingo Other [employer] Other 11-19-2020 13:15-0400 Body height 157.48 cm Albert White Other [employer] Other 11-19-2020 13:15-0400 Body mass index (BMI) [Ratio] 20.12 kg/m2 Albert White Other [employer] Other 11-19-2020 13:15-0400 Body temperature 98.9 [degF] Albert White Other [employer] Other 11-19-2020 13:15-0400 Body weight 49.9 kg Albert White Other [employer] Other 11-19-2020 13:15-0400 Diastolic blood pressure 91 mm[Hg] Albert White Other [employer] Other 11-19-2020 13:15-0400 SaO2% (BldA) [Mass fraction] 100 % Albert White Other [employer] Other 11-19-2020 13:15-0400 Systolic blood pressure 149 mm[Hg] Albert White Other [employer] Other 11-06-2020 15:00-0400 Body weight 51.26 kg Pankaj Berger Other [employer] Other 08-30-2020 13:02-0400 Body weight 56 kg Terence Pyle Work Phone: IC-Eowdmnhvdk-Wsnbtx nds Work Phone: 08-30-2020 13:02-0400 42 1 Terence Pyle Work Phone: GC-Findbgbytv-Fcfvjg nds Work Phone: Comment on above: 2-20_WPerc 11-05-2019 12:33-0400 BMI (Body Mass Index) 22.76 kg/m2 Chica Haim WU-Wtzrvgoklc-Fuuqvr ogy-Admin RBC 585 Work Phone: 11-05-2019 12:33-0400 Body weight 56.81 kg Chica Haim UL-Gskvgmuxlp-B eurol ogy-Admin RBC 585 Work Phone: 11-05-2019 12:33-0400 BP Diastolic 77 mm[Hg] Chica Haim UX-Dgcgehrnwq-Y eurol ogy-Admin RBC 585 Work Phone: 11-05-2019 12:33-0400 BP Systolic 127 mm[Hg] Chica Haim DC-Euoqhswlki-U eurol ogy-Admin RBC 585 Work Phone: 11-05-2019 12:33-0400 BSA (Body Surface Area) 1.57 m2 Chica Haim EZ-Imkwcxoqyy-Kvcjmo ogy-Admin RBC 585 Work Phone: 11-05-2019 12:33-0400 Height 158 cm Chica Haim GG-Spbzxtvlfx-D eurol ogy-Admin RBC 585 Work Phone: 11-05-2019 12:33-0400 21 1 Chica Haim OB-Ihbjuyspuy-A eurol ogy-Admin RBC 585 Work Phone: Comment on above: 2-20 Stature Percentile 11-05-2019 12:33-0400 49 1 Chica Haim EQ-Iigaphdmpt-H eurol ogy-Admin RBC 585 Work Phone: Comment on above: 2-20 Weight Percentile 11-05-2019 12:33-0400 64 1 Chica Haim GX-Brqacrmmly-J eurol ogy-Admin RBC 585 Work Phone: Comment on above: BMI Percentile 08-25-2019 12:37-0400 BMI (Body Mass Index) 22.79 kg/m2 Chica Haim ZJ-Gcdefvtixh-Rqgwkg og-Admin RBC 585 Work Phone: 08-25-2019 12:37-0400 Body weight 56.9 kg Chica Haim PJ-Ugdvsfhwxx-C eurol og-Admin RBC 585 Work Phone: 08-25-2019 12:37-0400 BP Diastolic 76 mm[Hg] Chica Haim IN-Uwrhocikfa-U eurol og-Admin RBC 585 Work Phone: 08-25-2019 12:37-0400 BP Systolic 126 mm[Hg] Chica Haim UG-Spknezykxj-L eurol og-Admin RBC 585 Work Phone: 08-25-2019 12:37-0400 BSA (Body Surface Area) 1.57 m2 Chica Haim EQ-Awqmlijmrm-Infvbz og-Admin RBC 585 Work Phone: 08-25-2019 12:37-0400 Height 158 cm Chica Haim CZ-Hmbsjchegd-I eurol og-Admin RBC 585 Work Phone: 08-25-2019 12:37-0400 21 1 Chica Haim GI-Rtyifloutl-C eurol og-Admin RBC 585 Work Phone: Comment on above: 2-20 Stature Percentile 08-25-2019 12:37-0400 51 1 Chica Haim UU-Wwndlfwnoh-G eurol og-Admin RBC 585 Work Phone: Comment on above: 2-20 Weight Percentile 08-25-2019 12:37-0400 65 1 Chiac Haim LU-Bkzwutguwn-R eurol og-Admin RBC 585 Work Phone: Comment on above: BMI Percentile Encounters Encounter Date Encounter Type Care Provider Facility Start: 01-03-2024 End: 01-03-2024 ambulatory Yaritza Gonzalez Facility:[facility] Start: 01-02-2024 End: 01-02-2024 Office outpatient visit 25 minutes Yaritza Gonzalez MIX TECHNICIAN Work Phone: [facility] Comment on above: Pain of left calf (P rimary Dx); Swelling of calf Start: 01-02-2024 End: 01-02-2024 ambulatory YARITZA GONZALEZ Not Available Start: 12-24-2023 End: 12-24-2023 ambulatory NAVID ALONDRA Not Available Start: 12-24-2023 End: 01-02-2024 Clinisync Result Encounter Generic External Data Provider [facility] External Department Unsolicited Start: 12-24-2023 End: 01-02-2024 Clinisync Result Encounter Generic External Data Provider [facility] External Department Unsolicited Start: 12-24-2023 End: 12-26-2023 External Result Encounter Navid Alondra DO Work Phone: [facility] Unsolicited Start: 12-24-2023 End: 12-24-2023 Office outpatient visit 25 minutes Suzan Patrick MIX TECHNICIAN Work Phone: [facility] Comment on above: Acute bronchitis, un specified organism (Primary Dx); Acute cough; Exposure to pneumonia; 18 weeks gestation of Start: 12-24-2023 End: 12-24-2023 ambulatory SUZAN PATRICK Not Available Start: 11-25-2023 End: 11-25-2023 flow sheet Navid [...] Available Start: 08-06-2023 End: 08-06-2023 ambulatory TERENCE TOLENTINO Not Available Start: 07-04-2023 End: 07-04-2023 ambulatory DO Ok Tyson Work Phone: [facility] Work Phone: Start: 07-04-2023 End: 07-04-2023 Patient encounter procedure DO Ok Tyson Work Phone: [facility] Work Phone: Start: 06-18-2023 End: 06-18-2023 ambulatory OK TYSON Not Available Start: 06-07-2023 Non-patient / Non-visit DO Guillermo Tyson Work Phone: [facility] Work Phone: Start: 06-02-2023 End: 06-02-2023 ambulatory TERENCE Harry VISCI Not Available Start: 05-31-2023 End: 05-31-2023 Patient encounter procedure DO Ok Tyson Work Phone: [facility] Work Phone: Start: 05-31-2023 End: 05-31-2023 ambulatory DO Ok Tyson Work Phone: [facility] Work Phone: Start: 05-23-2023 End: 05-23-2023 ambulatory TERENCE Harry VISCI Not Available Start: 05-14-2023 End: 05-14-2023 ambulatory RAHEL Mane NORA Not Available Start: 09-23-2022 End: 09-23-2022 ambulatory DO Ok Tyson Work Phone: [facility] Work Phone: Start: 09-23-2022 End: 09-23-2022 Patient encounter procedure DO Ok Tyson Work Phone: [facility] Work Phone: Start: 09-18-2022 End: 09-20-2022 Evaluation and management of inpatient DO Ok Tyson Work Phone: [facility] [place] Work Phone: Start: 09-03-2022 End: 09-03-2022 Departed Referred DO Ok Tyson Work Phone: [facility] [place] Work Phone: Start: 08-10-2022 End: 08-10-2022 ambulatory DO Ok Tyson Work Phone: [facility] Work Phone: Start: 08-10-2022 End: 08-10-2022 Patient encounter procedure DO Ok Tyson Work Phone: [facility] [place] - O/P Start: 11-25-2021 End: 11-26-2021 Emergency department patient visit Rayray Aquino [place] Start: 11-25-2021 End: 11-25-2021 Emergency department patient visit Rayray Aquino [facility] Start: 10-09-2021 End: 10-09-2021 Patient encounter procedure DO Ok Tyson Work Phone: [facility] Start: 09-23-2021 End: 09-23-2021 ambulatory Pankaj Berger Other [employer] Other Start: 09-23-2021 Telephone encounter Pankaj Serrano [facility] Start: 09-18-2021 End: 09-18-2021 ambulatory Pankaj Berger Other [employer] Other Start: 09-18-2021 Telephone encounter Pankaj Serrano [facility] Start: 09-13-2021 End: 09-13-2021 Patient encounter procedure DO Ok Tyson Work Phone: [facility] Start: 09-03-2021 Rx Renewal Terence Eugene er Work Phone: RV-Dfmpgmyrxf-Ddmdyj 220 Work Phone: Start: 08-20-2021 End: 08-20-2021 Patient encounter procedure DO Ok Tyson Work Phone: [facility] Start: 07-03-2021 End: 07-03-2021 ambulatory Pankaj Berger Other [employer] Other Start: 07-03-2021 Telephone encounter Pankaj Serrano [facility] Start: 06-11-2021 End: 06-11-2021 ambulatory Pankaj Berger Other [employer] Other Start: 06-11-2021 Telephone encounter Pankaj Serrano [facility] Start: 06-02-2021 Rx Renewal Terence Eugene er Work Phone: NI-Plepoqttbx-Yhscucezj-Ad min RBC 585 Work Phone: Start: 05-30-2021 ambulatory Terence Pyle Facility: Start: 05-30-2021 Office outpatient vi sit 15 minutes Terence Pyle Work Phone: LP-Nniilnyvlf-Rjzuyiinq-Ad min RBC 585 Work Phone: Start: 05-30-2021 Patient encounter procedure Terence Pyle Work Phone: PM-Opshotrdi-Pobnzprs H DO Work Phone: Start: 05-17-2021 End: 05-17-2021 Emergency department patient visit Bipin Skelton [facility] Start: 05-11-2021 Telephone encounter Terence Pyle Work Phone: DA-Pscciwbmjj-Mjanzsvzktt 220 Work Phone: Start: 04-27-2021 End: 04-27-2021 ambulatory Pankaj Berger Other [employer] Other Start: 04-27-2021 Telephone encounter Pankaj Serrano [facility] Start: 04-09-2021 AUDIT Terence Eugene er Work Phone: AP-Xijocioxji-Drradghqpoa 220 Work Phone: Start: 04-06-2021 End: 04-06-2021 ambulatory Albert White Other [employer] Other Start: 04-06-2021 Telephone encounter Albert [facility] Start: 04-05-2021 End: 04-05-2021 ambulatory Pankaj Berger Other [employer] Other Start: 04-05-2021 Telephone encounter Pankaj Serrano [facility] Start: 04-04-2021 End: 04-04-2021 ambulatory Albert White Other [employer] Other Start: 04-04-2021 Office outpatient vi sit 15 minutes Albert White [facility] Start: 04-03-2021 End: 04-03-2021 ambulatory Pankaj Berger Other [employer] Other Start: 04-03-2021 Telephone encounter Pankaj Serrano [facility] Start: 03-30-2021 End: 03-30-2021 ambulatory Pankaj Berger Other [employer] Other Start: 03-30-2021 Telephone encounter Pankaj STONE [facility] Start: 03-26-2021 Rx Renewal Terence Eugene er Work Phone: TS-Axzzjanrks-Qxpewpzk 1600 Work Phone: Start: 03-22-2021 ambulatory Terence Pyle Facility:[id number] Start: 03-22-2021 Office outpatient vi sit 15 minutes Terence Pyle Work Phone: XM-Lzhekvdxls-Rqymjfqix-Ad min RBC 585 Work Phone: Start: 03-22-2021 Patient encounter procedure Terence Hess Pyle Work Phone: AF-Hxatoefkhq-Fvuwdm 220 Work Phone: Start: 2021 End: 2021 ambulatory Pankaj Hopey Other [employer] Other Start: 2021 Patient encounter procedure Pankaj Berger [facility] Start: 03-07-2021 End: 03-07-2021 ambulatory Pankaj Hopey Other [employer] Other Start: 03-07-2021 Telephone encounter Pankaj STONE [facility] Start: 02-15-2021 End: 02-15-2021 ambulatory Pankaj Hopey Other [employer] Other Start: 02-15-2021 Telephone encounter Pankaj STONE [facility] Start: 02-12-2021 End: 02-12-2021 ambulatory Brenda Ginty Other [employer] Other Start: 02-12-2021 Office outpatient vi sit 5 minutes Brenda Ginty [facility] Start: 12-20-2020 End: 12-20-2020 ambulatory Pankaj Hopey Other [employer] Other Start: 12-20-2020 Telephone encounter Pankaj STONE [facility] Start: 12-14-2020 (Cra) Cra Laura Byrnes [facility] Start: 12-14-2020 End: 12-14-2020 ambulatory Laura Day Other [employer] Other Start: 12-13-2020 End: 12-13-2020 ambulatory Cahcho Domingo Other [employer] Other Start: 12-13-2020 Office outpatient vi sit 15 minutes Maldonadovicenta Shiv [facility] Start: 12-11-2020 End: 12-11-2020 ambulatory Pankaj Wellermiladisangela Other [employer] Other Start: 12-11-2020 Telephone encounter Pankaj STONE G [facility] Start: 11-28-2020 AUDIT Terence Nassarl er Work Phone: WO-Kntnqhxdxn-Rebpxubmq-Ad min RBC 585 Work Phone: Start: 11-27-2020 Telephone encounter Pankaj STONE G [facility] Start: 11-21-2020 Telephone encounter Pankaj STONE G [facility] Start: 11-19-2020 Office outpatient vi sit 15 minutes Albert [place] [facility] Start: 11-08-2020 Telephone encounter Pankaj STONE [facility] Start: 11-06-2020 Patient encounter procedure Pankaj Berger [facility] Start: 09-27-2020 AUDIT Terence Eugene er Work Phone: VF-Zmncrrcmxe-Vrzyoqnpd Work Phone: Start: 08-30-2020 Office outpatient vi sit 15 minutes Terence Pyle Work Phone: AV-Xwihfvfawv-Eqfsilvyn Work Phone: Start: 08-22-2020 AUDIT Terence Eugene er Work Phone: QM-Kejnuzfoju-Hmtwlkocl-Ad min RBC 585 Work Phone: Start: 07-19-2020 Rx Renewal Terence Eugene er Work Phone: RG-Ammtrooblx-Psyueryju-Ad min RBC 585 Work Phone: Start: 03-29-2020 Patient encounter procedure Chica Whitmore FIRE CONTROL TECHNICIAN-RUBBER WASHER, FIRE CONTROL TECHNICIAN-THREAD MILLING MACHINE SET UP OPERATOR MA-Qudmbyvzco-Tdppmbjz 1600 Work Phone: Start: 12-29-2019 Patient encounter procedure Chica Whitmore FIRE CONTROL TECHNICIAN-RUBBER WASHER, FIRE CONTROL TECHNICIAN-THREAD MILLING MACHINE SET UP OPERATOR JS-Gvyaihbccd-Epvyqqzd 1600 Work Phone: Start: 12-24-2019 End: 12-24-2019 Patient encounter procedure Bree Whittaker) Aleshia Work Phone: [facility] Start: 12-24-2019 Results Only Bree Whittaker) Aleshia Work Phone: Colorectal Surgery Start: 12-10-2019 End: 12-10-2019 Orders Only Bree Whittaker) Aleshia Work Phone: Gastroenterology Comment on above: Constipation, unspec ified constipation type (Primary Dx) Start: 11-05-2019 Patient encounter procedure Chica Finkwell QB-Wgweviiscu-Imhkscqzn-Ad min RBC 585 Work Phone: Start: 08-25-2019 Patient encounter procedure Chicaandra Finkwell UE-Zxwvsvdnao-Cpfiigoo-Adm in RBC 585 Work Phone: Start: 04-28-2019 Patient encounter procedure Chicaandra Finkwell ZT-Kicixjjcoe-Tbmdmwrx-Adm in RBC 585 Work Phone: Start: 12-30-2018 Patient encounter procedure Chicaandra Finkwell JA-Aawdsvfcxj-Tqdmrfadw Work Phone: Start: 09-30-2018 Patient encounter procedure Chica Haim SU-Hmxgqypxum-Boqolioaj Work Phone: Start: 04-29-2018 Patient encounter procedure Chicaandra Finkwell HR-Uzofckqozx-Zjwjqcjqj Work Phone: Start: 01-28-2018 Patient encounter procedure Chica Haim NI-Bfuscorjwp-Hhfwxlzoi Work Phone: Start: 11-07-2017 Patient encounter procedure Chicaandra Finkwell AN-Hhbtneuane-Zhepdddda Work Phone: Start: 08-01-2017 Patient encounter procedure Chica Haim AJ-Sftljlsdld-Srijylazj Work Phone: Start: 05-02-2017 Patient encounter procedure Chica Haim MS-Qzpzrwipuo-Vufaojelh Work Phone: Procedures Date Procedure Procedure Detail Performing Clinician Start: 01-03-2024 Comprehensive metabolic panel Yaritza Gonzalez MIX TECHNICIAN Work Phone: Start: 01-03-2024 HEMOGRAM CBC WITHOUT DIFF ([facility] Yaritza Mast Micheal MIX TECHNICIAN Work Phone: Start: 12-24-2023 RECURRENT VAGINITIS (HTRX) Navid Alondra D O Work Phone: Start: 12-24-2023 IGP,APTIMA HPV,AGE GDLN Navid Alondra DO Work Phone: Start: 11-25-2023 Urnls dip stick/tablet rgnt non-auto w/o micrscp Navid Aolndra DO Work Phone: Start: 09-18-2022 Urine culture DO Ok Tyson Work Phone: Start: 09-03-2022 Streptococcus agalactiae culture DO Krunal Tyson Work Phone: Start: 08-10-2022 Urine culture DO Ok Tyson Work Phone: Start: 12-24-2019 PT ED PATIENT INFORMATION Bree (Radio Engineering Teacher) Aleshia Work Phone: Start: 11-05-2019 IO EKG Electrocardiogram- 12 Lead Almaz Whitmore Colonoscopy Astrit Hajdari Esophagogastroduodenoscopy A strit Hajdari Urine culture DO Ok waters Work Phone: Plan of Treatment Date Care Activity Detail Author Start: 01-22-2024 End: 01-22-2024 Patient encounter procedure 01/22/2024 3:40 PM EST Routine [facility] [address] [address] Linda Robert PA [address] [place] [address] [facility] Start: 01-12-2024 End: 01-12-2024 Patient encounter procedure 01/12/2024 3:00 PM EST Office Visit [facility] [address] [place] [address] Ok Tyson, DO [address] [place] [address] [facility] Start: 12-24-2023 End: 12-24-2023 Patient encounter procedure 12/24/2023 3:40 PM EST Routine [facility] [address] [place] [address] Navid Cantu, [address] [facility] [address] Jerardo Ann, [facility] Start: 11-25-2023 End: 11-25-2023 Patient encounter procedure 11/25/2023 2:10 PM EDT Routine [facility] [address] [place] [id number] Navid Cantu, [address] [facility] [facility] [address] Jerardo Ann, [facility]11 Arrived [facility] Comment on above: Arrived Start: 10-12-2023 Influenza vaccination Influenza Vacc ine (#1) [facility] Start: 07-04-2023 [facility] Start: 09-20-2022 [facility] Start: 09-19-2022 Hospital admission [facility] Start: 09-18-2022 Hospital admission [facility] Start: 08-10-2022 [facility] Start: 08-10-2022 Hospital admission [facility] Start: 08-10-2022 Bacteria identified in Urine by Culture Urine Culture [facility] Start: 10-09-2021 End: 10-09-2021 Patient encounter procedure Departed Clinical [facility] Start: 05-30-2021 FUV, Provider: Chica Whitmore, Status: Pen, Time: 12:30 PM FUV, Provider: Chica Whitmore, Status: Pen, Time: 12:30 PM DJ-Dkfgybzlvj-Mhjycm 220 Work Phone: Start: 02-28-2021 FUV, Provider: Chica Whitmore, Status: Pen, Time: 12:30 PM FUV, Provider: Chica Whitmore, Status: Pen, Time: 12:30 PM XI-Knhxujjymv-Psnadb ogy-Admin RBC 585 Work Phone: Start: 08-30-2020 FUV, Provider: Chica Whitmore, Status: Pen, Time: 12:30 PM FUV, Provider: Chica Whitmore, Status: Pen, Time: 12:30 PM TW-Vtsrzonoui-Ffuqyh ogy-Admin RBC 585 Work Phone: Start: 10-12-2019 Influenza vaccination INFLUENZA (#1) [facility] Start: 2019 CHLAMYDIA SCREENING (18-24) CHLAMYDIA SCREENING (18-24) [facility] Start: 2019 GC (GONORRHEA) SCREE CHELSY (18-24) GC (GONORRHEA) SCREENING (18-24) [facility] Start: 2019 HEPATITIS C SCREENING HEPATITIS C SC REENING [facility] Start: 2019 HIV SCREENING HIV SCREENING [facility] Start: 2017 MENINGOCOCCAL CONJUG ATE (1 - 2-dose series) MENINGOCOCCAL CONJUGATE (1 - 2-dose series) [facility] Start: 2013 PHQ-A PHQ-A [facility] Start: 2012 HPV VACCINE (1 - 2-d ose series) HPV VACCINE (1 - 2-dose series) [facility] Start: 2008 Urine microalbumin profile DTAP,TDAP,TD (1 - Tdap) [facility] End: 12-09-2020 Anorectal manometry MANOMETRY ANORECTAL Endoscopy Routine Constipation, unspecified constipation type 1 Occurrences starting 12/23/2019 until 12/09/2020 [facility] Comment on above: 1 Occurrences starti ng 12/23/2019 until 12/09/2020 Patient Education [facility] Work Phone: Patient referral [facility] Work Phone: PT ED PATIENT INFORMATION PT ED PATIENT INFORMATION Other 12/24/2019 [facility] Immunizations Immunization Date Immunization Notes Care Provider Fa cility 11-11-2022 influenza, injectabl e, quadrivalent, preservative free Navid Alondra DO Work Phone: [facility] 11-11-2022 influenza virus vacc ine, unspecified formulation Navid Alondra DO Work Phone: [facility] 05-07-2021 pneumococcal polysaccharide vaccine, 23 [facility]ent [facility] Work Phone: [facility] 10-25-2020 influenza, injectabl e, quadrivalent, preservative free Terence Pyle Work Phone: JR[facility]Kuczvonemu[facility]Xrpxm a 220 Work Phone: 06-09-2020 COVID-19 [id number] (Moderna) DO Ok Tyson Work Phone: [facility] 06-06-2020 Moderna COVID-19 Vac cine 100 MCG/0.5ML Intramuscular Suspension Terence Pyle Work Phone: [facility] 05-09-2020 Moderna COVID-19 Vac cine 100 MCG/0.5ML Intramuscular Suspension Terence Pyle Work Phone: LQ-Kzqpbciwdc-Xhiax ands Work Phone: 10-27-2019 meningococcal B vacc ine, recombinant, OMV, adjuvanted Terence Pyle Work Phone: HY-Peffzrnyzn-Pvlhw ands Work Phone: 10-07-2019 influenza, injectabl e, quadrivalent, preservative free Navid Alondra DO Work Phone: [facility] 03-04-2018 influenza, injectabl e, quadrivalent, preservative free Terence Pyle Work Phone: IZ-Tzqbuvnhex-Mohyf ands Work Phone: 03-04-2018 meningococcal B vacc ine, recombinant, OMV, adjuvanted Terence Pyle Work Phone: VD-Yyzepkohlp-Igyrt ands Work Phone: 03-04-2018 meningococcal oligosaccharide (groups A, C, Y and W-135) diphtheria toxoid conjugate vaccine (MCV4O) Terence Pyle Work Phone: PP-Uxeynmwmfj-Ydmxd ands Work Phone: 10-24-2016 Human Papillomavirus 9-valent vaccine Terence Pyle Work Phone: EM-Ezdrmyrgul-Hzica ands Work Phone: 10-02-2016 diphtheria, tetanus toxoids and acellular pertussis vaccine Navid Cantu DO Work Phone: [facility] 09-28-2015 Human Papillomavirus 9-valent vaccine Terence Pyle Work Phone: GC-Prhhckekne-Dvdao ands Work Phone: 09-28-2015 meningococcal oligosaccharide (groups A, C, Y and W-135) diphtheria toxoid conjugate vaccine (MCV4O) Terence Pyle Work Phone: RS-Mkzmjjsnop-Qogod ands Work Phone: 08-26-2013 hepatitis A vaccine, pediatric/adolescent dosage, 2 dose schedule Terence Pyle Work Phone: YE-Xyurnpknql-Vjanz ands Work Phone: 08-26-2013 tetanus toxoid, redu deisy diphtheria toxoid, and acellular pertussis vaccine, adsorbed Terence Pyle Work Phone: TU-Owmwicrdqs-Noges ands Work Phone: 01-26-2009 novel Influenza-H1N1 -09, live virus for nasal administration Terence Pyle Work Phone: BL-Tkllpwzfxh-Zfvir ands Work Phone: 12-28-2008 novel influenza-H1N1 -09, preservative-free, injectable Terence Pyle Work Phone: JX-Bjimvolwox-Fcqyj ands Work Phone: 10-02-2006 diphtheria, tetanus toxoids and acellular pertussis vaccine, unspecified formulation Terence Pyle Work Phone: YW-Wcjjaaoocx-Esirg ands Work Phone: 10-02-2006 hepatitis A vaccine, unspecified formulation Terence Pyle Work Phone: MX-Pquojijvid-Hdnfr ands Work Phone: 10-02-2006 measles, mumps and rubella virus vaccine Terence Pyle Work Phone: XX-Uuzoqrdglx-Bqjpz ands Work Phone: 10-02-2006 poliovirus vaccine, inactivated Terence Nassarler Work Phone: LC-Ftecglomaj-Korqk ands Work Phone: 10-02-2006 varicella virus vaccine Marito Hess Edenilson Work Phone: VN-Lnxgnrxmdg-Qfxwx ands Work Phone: 06-01-2002 diphtheria, tetanus toxoids and acellular pertussis vaccine, unspecified formulation Terence Pyle Work Phone: TU-Gojpdsjsuu-Mbvwj ands Work Phone: 06-01-2002 haemophilus influenz ae type b vaccine, conjugate unspecified formulation Terence Pyle Work Phone: YQ-Okcfmnuode-Iqher ands Work Phone: 06-01-2002 measles, mumps and rubella virus vaccine Terence Nassarler Work Phone: QS-Nkpdbyvsco-Mvhlj ands Work Phone: 06-01-2002 varicella virus vaccine Marito Hess Edenilson Work Phone: UD-Bbpvzrvcxe-Rqrth ands Work Phone: 2001 diphtheria, tetanus toxoids and acellular pertussis vaccine, unspecified formulation Terence Pyle Work Phone: BJ-Kwmcmiksaj-Jpsxh ands Work Phone: 2001 haemophilus influenz ae type b conjugate and Hepatitis B vaccine Terence Pyle Work Phone: HN-Ycoldhbqyu-Xbplz ands Work Phone: 2001 pneumococcal conjuga te vaccine, 7 valent Terence Pyle Work Phone: TQ-Kabzqrzqdo-Vuwlq ands Work Phone: 2001 poliovirus vaccine, inactivated Terence Pyle Work Phone: IK-Psopvontxp-Ldmpw ands Work Phone: 2001 diphtheria, tetanus toxoids and acellular pertussis vaccine, unspecified formulation Terence Nassarler Work Phone: MU-Yesgbloonm-Ynypc ands Work Phone: 2001 haemophilus influenz ae type b vaccine, conjugate unspecified formulation Terence Nassarler Work Phone: UA-Qyrzffsfvq-Quisu ands Work Phone: 2001 pneumococcal conjuga te vaccine, 7 valent Terence Pyle Work Phone: OT-Bmihtgqawx-Wbbzz ands Work Phone: 2001 poliovirus vaccine, inactivated Terence Pyle Work Phone: DA-Psogmeosvg-Pdxzj ands Work Phone: 2001 diphtheria, tetanus toxoids and acellular pertussis vaccine, unspecified formulation Terence Pyle Work Phone: SY-Pukkwtvggk-Ydomp ands Work Phone: 2001 haemophilus influenz ae type b conjugate and Hepatitis B vaccine Terence Hess Pyle Work Phone: EK-Apchvfhdjb-Rtzpn ands Work Phone: 2001 poliovirus vaccine, inactivated Terence Nassarler Work Phone: JT-Xcfbfixiqi-Bhpmb ands Work Phone: 2001 hepatitis B vaccine, pediatric or pediatric/adolescent dosage Terence Pyle Work Phone: NQ-Lqogplgxsz-Alzko ruma Work Phone: Payers Date Payer Category Payer Self-pay [id number] 2022 Private Health Insurance [employer] [id number] 2022 Unknown [id number] 2022 Medicaid [employer] [place] 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 2001 Unknown [id number] 2.16.840.1.560535.3.579.2. 356 2001 Unknown [id number] 2.16.840.1.356419.3.579.2. 727 2001 Unknown [id number] 2.16.840.1.710439.3.579.2. 9 2001 Unknown [id number] 2.16.840.1.360117.3.579.2. 1259 2001 Unknown [id number] 2.16.840.1.916729.3.579.2. 9 2001 Unknown [id number] 2.16.840.1.351019.3.579.2. 9 2001 Unknown [id number] 2.16.840.1.111450.3.579.2. 9 2001 Unknown [id number] 2.16.840.1.014555.3.579.2. 9 2001 Unknown [id number] 2.16.840.1.545169.3.579.2. 9 2001 Unknown [id number] 2.16.840.1.455574.3.579.2. 9 2001 Unknown [id number] 2.16.840.1.639417.3.579.2. 9 2001 Unknown [id number] 2.16.840.1.230537.3.579.2. 9 2001 Unknown [id number] 2.16.840.1.351952.3.579.2. 9 2001 Unknown [id number] 2.16.840.1.774348.3.579.2. 9 1974 Unknown [id number] 2.16.840.1.505114.3.579.2. 356 Unknown [id number] Unknown HCAP/HFA/FAP Active [id number] Unknown [id number] 2.16.840.1.129001.3.579.2. 531 Unknown [id number] 2.16.840.1.213370.3.579.2. 531 Unknown [id number] 2.16.840.1.545434.3.579.2. 531 Social History Date Type Detail Facility Assertion Unknown if ever smoked [facility] Work Phone: Start: 2001 Sex Assigned At Not on file C [facility] Exposure to SARS-CoV -2 (event) Unable to assess [facility] Start: 10-31-2022 End: 01-02-2024 Lives with parents () Lives with parents () PJ-Oevtmyfdax-Bgohvfhzt- Admin [facility] 585 Work Phone: Start: 01-14-2021 End: 07-16-2022 Tobacco smoking status Never smoked tobacco (finding) [facility] Start: 10-31-2022 End: 01-02-2024 Sex Assigned At Female [facility] [employer] Other Start: 2001 Sex Assigned At Female F [facility] Tobacco Vaping [facility] Tobacco smoking status No Smokin g Status Entered [facility] Start: 07-16-2022 Tobacco use and exposure Smokeless tobacco non-user [facility] Start: 10-23-2023 End: 01-02-2024 Alcoholic beverage intake Lifetime non-drinker (finding) [facility] [...] of lumen evaluation Video capsule endoscopy system ()[id number] FDA Start: 04-25-2021 Goals Date Patient Goal Desired Activity /State Personal health goal Functional Status Date Assessment Result Facility 09-20-2022 Functional status Patient at Baseline [facility] Work Phone: 11-25-2021 Functional Status N/A [facility] NEGATED: Highlighted row Functional performance Functional status health issues are not documented Disease CY-Rrkogduorr-Nentjy nds Work Phone: Mental Status Date Assessment Result Facility 09-20-2022 Cognitive function Cognitive Sta tus Patient at Baseline [facility] Work Phone: NEGATED: Highlighted row Cognitive function [Interpretation] Cognitive status health issues are not documented Disease MQ-Dciyyibxtv-Fzunzp nds Work Phone: Clinical Notes 08-10-2020 to 01-02-2024 Yaritza Gonzalez, MIX TECHNICIAN - 01/02/2024 3:45 PM Katelynn Patrick NP - 12/24/2023 1:55 PM Sydni Thorne LPN - 11/25/2023 2:10 PM EDT Note Date & Type Note Facility 01-02-2024 History of Presen t illness Narrative HPI: Historian of HPI: patient Shiv Evangelista is a 23 y.o. female who presents today to the Urgent Care with the following complaints and denials due left lower leg pain which has been present for 1 day(s). C/O Denies Symptom Comments [x] [] swelling [] [x] ecchymosis [] [x] erythema [] [x] tingling [] [x] numbness [x] [] Pain radiation Knee area [x] [] Weakness [x] [] Decreased ROM [] [x] Trauma Additional Comments: pt has not taken any OTC medications Pt denies heat application to the affected area Pt denies cold application to the affected area Pt woke up in the middle of the night with excruciating cramp pain in her calf and the pain has not got better all day. Pt is 19 weeks . Pt just got over pneumonia. ROS: A complete system ROS was performed and negative aside from the pertinent positives noted in the HPI and PE. Visit Vitals LMP 08/23/2023 Comment: Sporadic periods. OB Status Smoking Status Never Physical Exam Vitals reviewed. Constitutional: General: She is not in acute distress. Appearance: Normal appearance. HENT: Head: Normocephalic and atraumatic. Nose: Nose normal. Pulmonary: Effort: Pulmonary effort is normal. No respiratory distress. Breath sounds: No wheezing, rhonchi or rales. Musculoskeletal: General: Normal range of motion. Cervical back: Normal range of motion and neck supple. Skin: General: Skin is warm and dry. Findings: No rash. Neurological: General: No focal deficit present. Mental Status: She is alert and oriented to person, place, and time. Psychiatric: Mood and Affect: Mood normal. Behavior: Behavior normal. Thought Content: Thought content normal. Judgment: Judgment normal. 1. Pain of left calf (Primary) Patient presents today for evaluation of left calf pain. Patient woke up in the middle of the night with a severe cramp in her left calf. The pain is still present. Venous duplex completed and pre-liminary report negative for acute DVT. Patient was made aware that US was negative for DVT. She is requesting lab work and it was ordered to [facility]. Tylenol for pain as she is and cannot take anything else. Perform calf stretches and follow up with E TAILER if no improvement. She expressed an understanding. - Vascular US lower extremity venous duplex left; Future - HEMOGRAM CBC WITHOUT DIFF ([facility]); Future - Comprehensive metabolic panel; Future 2. Swelling of calf See above. - Vascular US lower extremity venous duplex left; Future - HEMOGRAM CBC WITHOUT DIFF ([facility]); Future - Comprehensive metabolic panel; Future FINDINGS: The visualized left common femoral vein, superficial femoral vein, popliteal vein, and trifurcation vessels demonstrate appropriate compressibility and augmentation of flow. The left greater saphenous vein is patent. The left gastroc vein is patent. No perivascular fluid collection. No abnormality of the popliteal fossa. IMPRESSION: Negative for ultrasonographic evidence of DVT in the left lower extremity. documented in this encounter [place] [address]179-13-2024 History of Presen t illness Narrative HPI: Historian of HPI: patient Shiv Evangelista is a 23 y.o. female who presents today to the Urgent Care with the following complaints and denials which have been present for 3 day(s) pt states her son was just dx with walking pneumonia. Pt denies any V/D/N at this time. Pt states she is 18 weeks . Pt states she did an at home COVID test today which came back negative. C/O Denies Symptom Comments [] [x] Runny Nose [x] [] Difficulty Swallowing [x] [] Sore Throat X2 days [x] [] Cough Wheezing last night, chest tightness [] [x] Ear Pain [] [x] Fever [] [x] Chills [x] [] Nasal Congestion [x] [] Myalgia [x] [] Sinus Pain Headache on and off [] [x] Sinus Pressure Additional Comments: pt has taken tylenol OTC medication with relief states her sx are worsening, not improving. Pt would like to see a provider before any testing. ROS: A complete system ROS was performed and negative aside from the pertinent positives noted in the HPI and PE. Examination General Examination: General Examination: in no acute distress, well developed, well nourished Head: normocephalic, atraumatic Eyes: no discharge Ears: BOTH EARS canals normal. TM with mild erythema bilat. Nose: nares patent, sinuses nontender bilaterally Oral Cavity: mucosa moist Throat: pharynx with erythema and PND. No trismus, muffled voice, drooling or protrusion of soft palate. Uvula midline Neck/Thyroid: neck supple, trachea midline Lymph Nodes: no cervical adenopathy Skin: warm and dry Heart: S1, S2 normal, regular rate and rhythm, no S3, S4, no murmurs, rubs, gallops Lungs: diminished breath sounds t/o. no wheezes, rales, rhonchi Chest: normal shape and expansion, normal anteroposterior (AP) diameter Psych: alert, oriented. 1. Acute bronchitis, unspecified organism (Primary) Pt reports close exposure to pneumonia, pos cold sx that pt states are worsening and mainly chest c/o. Pt does have diminished breath sounds on exam today. No imaging obtained today due to concurrent . Discussed will send zithromax to pharmacy and pt MUST obtain approval from OB to start. Immediate eval if new, worsening or warning s/s otherwise follow up with OB. 2. Acute cough See 1 - azithromycin (Zithromax Z-Dusty) 250 MG tablet; Take 2 tablets (500 mg) on Day 1, followed by 1 tablet (250 mg) once daily on Days 2 through 5. Dispense: 6 tablet; Refill: 0 3. Exposure to pneumonia See 1 - azithromycin (Zithromax Z-Dusty) 250 MG tablet; Take 2 tablets (500 mg) on Day 1, followed by 1 tablet (250 mg) once daily on Days 2 through 5. Dispense: 6 tablet; Refill: 0 4. 18 weeks gestation of See 1 . documented in this encounter [facility] 11-25-2023 History of Presen t illness Narrative [...] Ambulatory Problems Diagnosis Date Noted Celiac disease (CMS/HCC) 11/01/2022 Constipation due to outlet dysfunction 02/21/2020 Current smoker 11/01/2022 Menorrhagia with irregular cycle 11/01/2022 Migraine without aura (CMS/HCC) 11/01/2022 Mixed anxiety depressive disorder 02/21/2020 Other [...] Other (anxiety) Mother Shine Evangelista Hyperthyroidism Mother Shine Evangelista hyperactive thyroid Diabetes Mother Shine Evangelista Hypertension Mother Shine Evangelista Hyperlipidemia Mother Shine Evangelista Mental illness Mother Shine Evangelista No Known Problems Sister Hypertension Brother Eduardo Estrada Diabetes Maternal Grandmother Magy No Other (blood clots) Paternal Great-Grandmother SURGICAL HISTORY [...] nursing note reviewed. Exam conducted with a construction and maintenance inspector present. Vitals: Estimated body mass index is 25.15 kg/m as calculated from the following: Height as of 08/06/23: 5' 2 . Weight as of this [...] or undercooked meat, and stay away from [facility]. Patient has been consulted regarding any further do's and don'ts of . Patient voiced understanding and all questions and concerns were answered. Orders Placed This Encounter Procedures POCT urinalysis dipstick manually resulted Follow Up: Patient is to return in 4 weeks for routine OB appointment. Documented by Helene Thorne LPN on behalf of: Navid Cantu DO documented in this encounter [facility] 09-20-2022 Progress note Note Date/Time September 20, 2022 8:51am [facility] [address] [place] [address] E TAILER Progress Note Signed Patient: Shiv Evangelista MR#: [id number] : 2000 Acct:[id number] Age/Sex: 22 / F Adm Date: 3 Loc: 3S Room: [address] [place] [address] Type: ADM IN Attending Dr: Yuval Pete [...] well controlled, tolerating diet and flatus present Leupp baby status: doing well Leupp feeding status: exclusively breast feeding OB - [...] % (Auto) 81.0, Lymph % (Auto) 8.5, Dunn % (Auto) 10.2, Eos % (Auto) 0.1, Baso % (Auto) 0.2, Nucleat RBC Rel Count 0.0, Neut # (Auto) 11.5 H, Lymph # (Auto) 1.2, Dunn # (Auto) 1.5 H, Eos # (Auto) [...] <Electronically signed by GAL Abraham> 09/20/22 1044 [facility] Work Phone: 1(164) 314-637508-10-2023 Progress note Author QUIN AVENDAÑO [facility] September 19, 2022 11:03am Note Date/Time September 19, 2022 11 :03am [facility] [address] [place] [address] E TAILER Progress Note Signed Patient: Shiv Evangelista MR#: [id number] : 2000 Acct:[id number] Age/Sex: 22 / F Adm Date: 3 Loc: 3S Room: [address] [place] [address] Type: ADM IN Attending Dr: Yuval Pete [...] headache, or vision changes); no flatus present Leupp baby status: doing well Leupp feeding status: pumping and storing OB - [...] % (Auto) 77.8, Lymph % (Auto) 11.8, Dunn % (Auto) 9.3, Eos % (Auto) 0.5, Baso % (Auto) 0.6, Nucleat RBC Rel Count 0.1, Neut# (Auto) 8.0 H, Lymph # (Auto) 1.2, Dunn # (Auto) 1.0 H, Eos # (Auto) 0.1, Baso # (Auto) 0.1 09/18/22 08:20: Urine Opiates Screen Negative, Ur Barbiturates Screen Negative, Ur Phencyclidine Scrn Negative, Ur Amphetamines Screen Negative, U Benzodiazepines Scrn Negative, Urine Cocaine Screen Negative 09/18/22 08:20: Urine Color Yellow, Urine Appearance Cloudy A, Urine pH 7.0, Ur Specific [place] 1.004, Urine Protein Negative, Urine Glucose (UA) [...] signed by QUIN AVENDAÑO DO> 09/19/22 1103 [facility] Work Phone: 1(445) 720-707108-09-2023 History and physical note Author YUVAL PETE [facility] September 18, 2022 9:22pm Note Date/Time September 18, 2022 9:2 2pm [facility] [address] [place] [address] E TAILER History & Physical Signed Patient: Shiv Evangelista MR#: [id number] : 2000 Acct:[id number] Age/Sex: 22 / F Adm Date: 3 Loc: Room: [address] [place] [address] Type: ADM IN Attending Dr: Yuval Pete MD Copies to: MD Ok BOYD DO~ Date of Service: 09/18/2022 HPI History of Present Illness Chief complaint: I'm cramping HPI: Pt is a healthy primigravida at term. She presents to L+D complaining of contractions. After a period of observation, she was found to be in early laborand admitted in anticipation of delivery OB [facility] Medical History (Updated 09/18/22 @ 21:22 by Yuval Pete MD) Anxiety Celiac disease Depression Migraines Surgical History (Updated 09/18/22 @ 15:53 by Mariangel Miller RN) Hx of tonsillectomy Arthur teeth removed E TAILER Hx : 1 Para: 0 : 0 [...] (Verified 09/18/22 08:27) Abdominal Pain Home Medications zfjfbear-obx-Pi-FA 1 mg tablet tab PO 08/09/23 [History] Active Medications Carboprost Tromethamine (Carboprost Tromethamine 250 Mcg/Ml Vial) 250 mcg IM PRN PRN PRN Reason: Bleeding Stop: 09/19/22 14:14 Lactated Ringer's (Lactated Ringers) 1,000 mls @ 150 mls/hr IV .Q6H40M [facility] Stop: 09/18/23 14:14 Last Admin: 09/18/22 16:10 Dose: 150 mls/hr Oxytocin (Pitocin/Lr) 30 unit in 500 mls @ 2 mls/hr IV .Q24H [facility]; Protocol Stop: 09/18/23 14:14 Last Titration: 09/18/22 [...] % (Auto) 77.8, Lymph % (Auto) 11.8, Dunn % (Auto) 9.3, Eos % (Auto) 0.5, Baso % (Auto) 0.6, Nucleat RBC Rel Count 0.1, Neut # (Auto) 8.0 H, Lymph # (Auto) 1.2, Dunn # (Auto) 1.0 H, Eos # (Auto) 0.1, Baso # (Auto) 0.1 09/18/22 08:20: Urine Opiates Screen Negative, Ur Barbiturates Screen Negative, Ur Phencyclidine Scrn Negative, Ur Amphetamines Screen Negative, U Benzodiazepines Scrn Negative, Urine Cocaine Screen Negative 09/18/22 08:20: Urine Color Yellow, Urine Appearance Cloudy A, Urine pH 7.0, Ur Specific [place] 1.004, Urine Protein Negative, Urine Glucose (UA) [...] <Electronically signed by MD YUVAL PETE> 09/18/222121 [facility] Work Phone: 1(918) 988-526808-09-2023 Procedure [facility]10-17-2022 Hospital Discharge instructions Patient Education 11/25/2021 23:47:17 [...] Follow these instructions at home: Medicines Take rcxd-suk-pnauigz and prescription medicines only as told by your health care provider. Ask your health care provider if the medicine prescribed to you: ?Requires you to avoid driving or using heavy machinery. ?Can cause constipation. You may need to take these actions to prevent or treat constipation: ?Drink enough fluid to keep your urine pale yellow. ?Take dncu-cad-qzahufs or prescription medicines. ?Eat foods that are [...] 01/27/2006 Document Revised: 05/21/2019 Document Reviewed: 03/11/2019 [employer] Patient Education 2020 [employer]. Follow Up Care 11/25/2021 18:58:56 With:OK TYSON Address: [address] [place] [address] [place] , [address] [address] Business (1) When:Within 3 Day(s) [facility]10-16-2022 Evaluation + Plan noteExtracted from: Title:ED Note Author:Rayray Aquino DO Date :11/25/21 Migraine headache (G43.909: Migraine, unspecified, not intractable, without status migrainosus) Orders: diphenhydrAMINE, 25 mg = 0.5 mL, Injection, IV Push, Once, Stop date 11/25/21 22:05:00 EDT, STAT, Start date 10/16/22 22:05:00 EDT, 11/25/21 22:05:00 EDT ketorolac, 15 [...] 22:06:00 EDT, mL/hr, Infuse over 61, minute(s) [facility]08-29-2022 NoteHNO ID: [id number] Author: Lynn Potts PT Service: ? Author Type: Physical Therapist Type: Progress Notes Filed: 10/08/2021 12:15 PM Note Text: 10/08/2021 [facility] PHYSICAL THERAPY DISCONTINUANCE OF CARE Plan of Care Period: Start of Care Date: 11/09/20 Last Visit Date: 11/13/2020 Therapy Program: The following is a summary of the interventions provided for this episode of care; Therapeutic exercise, Neuromuscular re-education, Manual therapy, Therapeutic activities, Self-senior care management, and Patient/Family/Caregiver Education Assessment: Based on [...] or scheduled additional follow-up appointments. Lynn Potts [facility]05-24-2022 Evaluation note* Encounter Date Diagnosis Assessment Notes Treatment Notes Treatment Clinical Notes June, Small intestinal bacterial overgrowth (SIBO) (ICD-10 - K63.89) [facility] Other 05-02-2022 Evaluation note* Encounter Date Diagnosis Assessment Notes Treatment Notes Treatment Clinical Notes June, Small intestinal bacterial overgrowth (SIBO) (ICD-10 - K63.89) [facility] Other 04-08-2022 Hospital Discharge instructions Patient Education [...] hospital. Follow these instructions at home: Take ehrf-dtf-lplxier and prescription medicines only as told by [...] cantaloupe, kiwi, oranges, tomatoes, asparagus, and potatoes. ?Barnes juice. ?Tomato juice. ?Red meats. ?Yogurt. Keep [...] 01/27/2006 Document Revised: 09/09/2018 Document Reviewed: 09/09/2018 [employer] Patient Education 2020 [employer]. 05/17/2021 22:58:45 Abnormal Uterine Bleeding, Kfvr-bh-Ctjw Abnormal Uterine Bleeding Abnormal uterine bleeding means [...] 11/24/2009 Document Revised: 01/21/2017 Document Reviewed: 01/21/2017 [employer] Patient Education 2020 [employer]. Follow Up Care 05/17/2021 20:46:59 With:Sirisha MURPHY, ALICIA Bills Address: [address] [place] [id number]- When:2 to 4 days With:TERENCE PYLE MD Address: [address] [place] [id number]- When:05/20/2021 [facility]04-07-2022 Evaluation + Plan noteExtracted from: Title:ED Note Author:Mariana Steinberg PA-C Date :05/17/21 1. Dysfunctional uterine ble eding (N93.8: Other specified abnormal uterine and vaginal bleeding) Ordered: meclofenamate, 100 mg = 1 cap(s), Oral, TID, X 5 day(s), # 15 cap(s), Refills(s) 0, Pharmacy: [facility] [id number] [facility] [employer], 157.5, cm, 05/17/21 20:52:00 EDT, Height/Length Dosing, 47.8, kg, 05/17/21 20:52:00 EDT, Weight Dosing 2. Hypokalemia (E87.6: Hypokalemia) Ordered: meclofenamate, 100 mg = 1 cap(s), Oral, TID, X 5 day(s), # 15 cap(s), Refills(s) 0, Pharmacy: [facility] [id number] [facility] [employer], 157.5, cm, 05/17/21 20:52:00 EDT, [...] Diagnostic Tests Pending * Urine Culture 05/17/21 [facility]03-18-2022 Evaluation note* Encounter Date Diagnosis Assessment Notes Treatment Notes Treatment Clinical Notes Apr, Abdominal pain (ICD-10 - R10.9) [facility] Other 02-23-2022 Evaluation note* Encounter Date Diagnosis [...] to pass out, go to the ER. [facility] Other 02-10-2022 Chief complaint Narrative - Reported* [...] Follow up migraines * Accompanied by alone. QJ-Umbjgxrxkd-Haviiv 220 Work Phone: [phone] 440-994102-10-2022 Chief complaint Narrative - Reported* An interactive [...] Follow up migraines * Accompanied by alone. 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 She will be at [employer]. * She has also been diagnosed IGA [...] and she just started on 5 mgTID. OG-Ctwtjozev-Roobiprp H DO Work Phone: [phone]) 805-303402-01-2022 History of Present illness Narrative* Shiv is [...] is starting a new job as a [employer]. She will be at [employer]. * She has also been diagnosed IGA [...] and she just started on 5 mgTID. 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 Jones Feb, Constipation (ICD-10 - K59.00) Increase Linzess to 145mcg daily [facility] Other 01-06-2022 Evaluation note* Encounter Date Diagnosis Assessment Notes Treatment Notes Treatment Clinical Notes Feb, Small intestinal bacterial overgrowth (SIBO) (ICD-10 - K63.89) [facility] Other 01-03-2022 Evaluation note* Encounter Date Diagnosis [...] Patient care instructions given in writting by [facility] At Home document [facility] Other 11-04-2021 Evaluation note* Encounter Date Diagnosis Assessment Notes Treatment Notes Treatment Clinical Notes Dec, Celiac disease/sprue (ICD-10 - K90.0) Dec, Constipation (ICD-10 - K59.00) Dec, Other Summary of Visit: (A) Low Fructose Nutriiton Therapy (B) Reviewed Gluten Free Nutrition Therapy (C) Log food and symptoms [facility] Other 11-03-2021 Evaluation note* Encounter Date Diagnosis [...] Patient care instructions given in writting by [facility] document. [facility] Other 10-10-2021 Evaluation note* Encounter Date Diagnosis [...] Patient care instructions given in writting by [facility] document. [facility] Other 10-04-2021 NoteHNO ID: [id number] Author: Lynn Potts PT Service: ? Author [...] (timed and untimed codes) : 46 Lynn Potts [facility]09-30-2021 NoteHNO ID: [id number] Author: Alexandra Suarez PT Service: ? Author Type: Physical Therapist [...] Planned: 8 Planned Treatment Interventions: Therapeutic exercise (89648);Neuromuscular re-education (37422);Manual therapy (08897);Therapeutic activities (54459);Self-senior care management (99968);Patient/Family/Caregiver Education;Biofeedback Pelvic (56562,30070) PLAN FOR NEXT VISIT: toileting positions, colon [...] movement Bowel Movement Co (more content not included)...[facility] 11-06-2020 Evaluation note* Encounter Date Diagnosis Assessment Notes Treatment Notes Treatment Clinical Notes Oct, Celiac disease/sprue (ICD-10 - K90.0) Celiac disease material was printed BEEN FOLLOWING GLUTEN FREE DIET. BREATH TESTING IS ORDERED AND SCHEDULED IN [facility] Oct, Constipation (ICD-10 - K59.00) IS STILL TAKING THE MIRALAX AND LINZESS. PATIENT ENCOURAGED HOW TO USE MIRALAX MUCH SHE DOES NEED TO. ENCOURAGED TO GET UP AND MOVE SO BOWELS MOVE ALSO. STOP AMITRIPTYLINE AND START THE LEVSIN Oct, Nausea (ICD-10 - R11.0) [facility] Other 07-01-2021 History of Present illness Narrative* Shiv is a 20 year old young woman with POTS, anxiety and headaches. She is taking 2 summer courses. She continues through [facility] and is taking her courses through [facility]. * She stopped all her meds because [...] as well. * She still works at [employer]. * She denies any thoughts about hurting herself unless she is having a panic attack. * She has been having more issues with dizziness. EP-Pfpzbqlfyl-Ofcprktom Work Phone: Evaluation noteNo InformationNort [employer] Other Evaluation noteNo assessment information available [facility] Work Phone: Evaluation note* Diagnosis Onset Date Resolution Status 38 weeks gestation of acute Status post vaginal delivery acute [facility] Work Phone: Evaluation note* Diagnosis Onset Date Resolution Status Anxiety acute Celiac disease acute POTS (postural orthostatic tachycardia syndrome) acute [facility] Work Phone: Evaluation note* Diagnosis Second trimester state, incidental 13 weeks gestation of documented in [facility] Diagnosis Acute bronchitis, unspecified organism- Primary Acute cough Exposure to pneumonia 18 weeks gestation of documented in [facility]* Diagnosis Pain of left calf- Primary Swelling of calf Pain of left calf Swelling of calf documented in this encounter [facility] Narrative - Reported* Type Description Date Medical History anxiety Medical History celiac Medical History migraine headache Medical History [employer] Other History general Narrative - Reported* Type Description Date Medical History anxiety Medical History celiac disease Medical History migraine headache Medical History [employer] Other History [facility] - [facility] Other History of Present illness Narrative* This visit was completed via phone or Doxy.hi due to the restrictions of the COVID-19 [...] has been having more issues with dizziness. TQ-Lmqreixqib-Shakrn 220 Work Phone: History of Present illness [...] has been having more issues with dizziness. SN-Seagrnqzkh-Bqibjnwwa-Admin RBC 585 Work Phone: Hospital course Narrative No data available for this section [facility] Additional Instructions Try to rest today and stay off your feet. Take tylenol as needed.[facility] Work Phone: Instructions* Name Dates Details Instructions not documented RE-Gvaakbhnhy-Yguazmha 1600 Work Phone: Instructions* Name Dates Details Instructions not documented YH-Detmabqirl-Rwlxsawl-Admin RBC 585 Work Phone: progress note No data available for this section [facility] Family History No Family History Records Found Grandmother Name Dates Details Family history of [...] constipation type- Primary Summary Purpose Advance Directives No Advanced Directives Records Found Advance Directive Response Recorded Date/ Time Advance [...] [facility] Referred Provider Mike Jones Referred Address ,[place], [place],[address] Referred Provider Specialty Immunology Referral Priority Routine [...] R00.[address] requested by Rachel Fatima MIX TECHNICIAN Chief Complaint R00.[address] requested by Rachel Fatima MIX TECHNICIAN Reason for Visit Anxiety Celiac disease POTS (postural orthostatic tachycardia syndrome) Additional Source Comments Source Comments (unrecognize d section and content) In the event this informatio n is protected by the Federal Confidentiality of Alcohol and Drug Abuse Patient Records regulations: The Federal rules restrict any use of the information to criminally investigate or prosecute any alcohol or drug abuse patient.[facility] the event this information is protected by the Federal Confidentiality of Alcohol and Drug Abuse Patient Records regulations: The Federal rules restrict any use of the information to criminally investigate or prosecute any alcohol or drug abuse patient.[facility] INFORMATION SOURCE (unrecogn ized section and content) DATE CREATED AUTHOR 01/17/2020 [facility] DATE CREATED AUTHOR AUTHOR'S PHOEBE ATION 06/08/2021 [facility] DATE CREATED AUTHOR AUTHOR'S ORGANIZ ATION 06/23/2021 [facility] DATE CREATED AUTHOR AUTHOR'S ORGANIZ ATION 10/09/2021 [facility] DATE CREATED AUTHOR AUTHOR'S ORGANIZ ATION 01/07/2022 [facility] DATE CREATED AUTHOR AUTHOR'S ORGANIZ ATION 11/16/2022 [facility] ical [facility] DATE CREATED AUTHOR AUTHOR'S ORGANIZ ATION 01/06/2024 [facility] y[facility] DATE CREATED AUTHOR AUTHOR'S ORGANIZ ATION 01/08/2024 [facility] dical Specialists EPIC REASON FOR VISIT (unrecogniz ed section and content) Reason Comments Routine Visit Care Teams (unrecognized sec tion and content) Team Status: Inactive Member Role Status Dates Ok Tyson DO Primary Care Provider, Attending Lou mnea Active Team Status: Active Member Role Status [...] July 04, 2023 End: July 04, 2023 Mine Inspector Relationship Specialty Start Date End Date Ok Tyson DO [address] [place] [address] PCP - General Internal Medicine 07/19/22 Luis Antonio Blas DO [address] [place] [address] PCP - Medical [place] [employer] 03/13/22 02/09/99 Mine Inspector Relationship Specialty Start Date End Date Ok Tyson DO [address] [place] [address] PCP - General Internal Medicine 07/19/22 Luis Antonio Blas DO [address] [place] [address] PCP - Medical [place] [employer] 03/13/22 02/09/99 Mine Inspector Relationship Specialty Start Date End Date Ok Tyson DO [address] [place] [address] PCP - General Internal Medicine 07/19/22 Luis Antonio Blas DO [address] [place] [address] PCP - Medical [place] [employer] 03/13/22 02/09/99 Mine Inspector Relationship Specialty Start Date End Date Ok Tyson DO [address] [place] [address] PCP - General Internal Medicine 07/19/22 Luis Antonio Blas, DO [address] [place] [address] PCP - [facility] 03/13/22 02/09/99 Mine Inspector Relationship Specialty Start Date End Date Ok Tyson, DO [address] [place] [address] PCP - General Internal Medicine 07/19/22 Luis Antonio Blas Maggie, DO [address] [facility] [address] PCP - [facility] 03/13/22 02/09/99 Goals (unrecognized section and content) [...] BE BASED ON THE PRIMARY CLINICAL RECORDS. [facility]. provides no warranty or guarantee of the accuracy or completeness of information in this document.
[2024-01-14 00:07] LABS: AFP Value 93.2 ng/mL (.); Insulin Dep Diabetes No (.); Maternal Age At EDD 23.2 yr (.); OSBR Risk 1 IN 2270 (.); Results Report (.)
== END 2024-01-10 08:05 | disposition home or self-care (01) ==
LOC: US 08:05
PROVIDERS: PCP Internal Medicine; Visit Provider Obstetrics & Gynecology
DX: Z34.92 Encounter for supervision of normal pregnancy, unspecified, second trimester (principal); Z36.89 Encounter for other specified antenatal screening; Z3A.20 20 weeks gestation of pregnancy
CPT/HCPCS: 36415; 76805; 76817; 82105

== ENCOUNTER 2024-02-21 10:47 | Outpatient (OUT) | payer MEDICAID, SELFPAY ==
--- OUTSIDE RECORDS SUMMARY | 2024-02-21 10:51 | XMS_ITS | CCD ---
Author Organization [facility] Care Team Providers Care Process Area Supervisor Name Role Phone Chica Whitmore Unavailable Unavailable Terence Pyle Unavailable Unavailable Nataprawira, Avani Unavailable Unavailable Chica Whitmore Unavailable Unavailable Al Bustillo Unavailable Unavailable Terence Pyle Primary Care Provider Pankaj Berger Unavailable Haim BLEACH ANALYST-LABORER, BLEACH ANALYST-HANDBAG FINISHERChica Unavailable Unavailable Terence Pyle Unavailable Unavailable Nataprawira, Avani Unavailable Unavailable Chica Whitmore Unavailable Unavailable Al Bustillo Unavailable Unavailable Terence Pyle Unavailable Unavailable Unavailable Chica Whitmore Unavailable Unavailable OK TYSON Primary Care Physician Pankaj Berger Unavailable Albert White Unavailable Chacho Domigno Unavailable Laura Day Unavailable Brenda Armstrong Unavailable DO Ok Tyson Primary Care Provider [phone] DO Ok Tyson Attending Provider Terence Pyle Primary Care Unavailabl e Self, Referral Referring Unavailable Ms. Chica Whitmore Attending UnavailTerence Munoz Primary Care UnavailMs. Chica Lucia Attending UnavailDO Ok Rizzo Primary Care Provider DO Terence Garcia Attending Provider DO Chica Newman Attending Provider MD Yuval Pete Admit Provider MD Yuval Pete Attending Provider MD Reyna King Attending Provider Rayray Aquino Attending Unavailable DO Ok Tyson Primary Care Provider JOSE Molina Attending Provider MD Artur Kang Attending Provider Ok Tyson DO Primary Care Provider Luis Antonio Blas DO Unavailable Artur Kang Attending Roni Ok [facility] Care Unavailable Artur Kang Admitting Unaaurorai Rahel Aceves Admitting Unavailable Rahel Molina Attending Unavailable Ok Tyson [facility] Care Unavailable Yaritza Gonzalez Admitting Unavailable Yaritza Gonzalez Attending Unavailable Ok Tyson [facility] Care Unavailable Ok Tyson DO Unavailable Luis Antonio Blas DO Unavailable [phone] RAHEL MOLINA Attending Unavailable VISCI, TERENCE Harry Attending Unavailable VISCI, TERENCE Harry Referring Unavailable VISCI, TERENCE Harry Attending Unavailable VISCI, TERENCE Harry Referring Unavailable OK TYSON Attending Unavailable OK TYSON Referring Unavailable VISCI, TERENCE Harry Attending Unavailable VISCI, TERENCE Harry Referring Unavailable NAVID CANTU Attending Unavailable SUZAN PATRICK Attending Unavailable NAVID CANTU Attending Unavailable YARITZA GONZALEZ Attending Unavailable YARITZA GONZALEZ Referring Unavailable OK TYSON Attending Unavailable OK TYSON Referring Unavailable HARRIETLINDA SAL Attending Unavailable RAHEL MOLINA Attending Unavailable Allergies Allergy Classification Reported Allergen(s) Allergy Type Date of Onset Reaction(s) Facility (20 sources) Wheat preparation; Translations: [wheat] Drug Allergy 08-30-2022 Abdominal Pain [facility] Medications Current Medications Medication Drug Class(es) Dates [...] Ordered: 13-Dec-2020 DO Start : 13-Dec-2020 Active amoxicillin 875 mg / clavulanate 125 mg oral tablet (2 sources) Penicillin-class Antibacterial Start: 02-09-2024 End: 02-16-2024 take 1 tablet by mouth in the morning amoxicillin-clavulanate (Augmentin) 875-125 MG tablet Indications: Acute non-recurrent pansinusitis Take 1 tablet (875 mg) by mouth in the morning and 1 tablet (875 mg) before bedtime. Do all this for 7 days. 14 tablet 02/09/2024 02/16/2024 Active busPIRone hydrochloride 5 mg oral tablet (7 sources) Start: 12-02-2022 End: 10-23-2023 take 5 mg by mouth twice daily Buspirone Active 5 MG PO Twice daily July 03, 2023 12:00am Start: 02-16-2020 End: 08-30-2020 take 1 tablet by mouth twice daily busPIRone HCl - 5 MG Oral Tablet take 1 tablet by mouth twice a day Quantity: 60 Refills: 2 Ordered: 09-Mar-2020 Haim GARCIA-TM, Chica GROVES Start : 16-Feb-2020 End : [...] Quantity: 90 Refills: 1 Ordered: 13-Apr-2020 Haim GARCIA-MT, Chica GROVES Start : 13-Sep-2019 Active hyoscyamine [...] Three times a day for 30 Not-Taking linaclotide 0.145 mg oral capsule (20 sources) [...] 26, 2019 10:13am take 1 capsule by [facility] every twenty-four hours Linzess 72 MCG 1 cap(s) Orally Once a day for 30 day(s) Active take 1 capsule by mo ut every twenty-four hours Linzess 145 MCG 1 cap(s) Orally Once a day for 30 day(s) Active Linzess Active magnesium oxide 400 mg oral tablet (19 sources) Start: 12-13-2023 take 1 tablet by mouth once daily magnesium oxide (Mag-Ox) 400 MG tablet Take 1 tablet by mouth Daily 12/13/2023 Active Start: 10-23-2023 End: 11-22-2023 take 1 tablet by mouth once daily magnesium oxide (Mag-Ox) 400 MG tablet Indications: Migraine without aura and without status migrainosus, not intractable (CMS/HCC) Take 1 tablet (400 mg) by mouth Daily 30 tablet 6 10/23/2023 11/22/2023 Active Start: 07-03-2023 End: 07-04-2023 take 400 mg by mouth once daily Magnesium Oxide Discon tinued 400 MG PO Daily July 03, 2023 12:00am July 04, 2023 10:12am meclofenamate 100 mg oral capsule (1 source) Start: 05-17-2021 End: 05-22-2021 take 1 capsule by mouth three times daily meclofenamate 100 mg Cap 100 mg = 1 cap(s), Oral, TID, X 5 day(s), # 15 cap(s), Refills(s) 0, Pharmacy: [place] [id number] [facility], 157.5, cm, 05/17/21 20:52:00 EDT, [...] FOR NAUSEA OR VOMITING 12/13/2023 Active Start: 10-23-2023 End: 11-22-2023 take 1 tablet by mouth every six hours as needed for nausea and vomiting and nausea and nausea ondansetron ODT (Zofran-ODT) 4 MG disintegrating tablet Indications: Nausea Take 1 tablet (4 mg) by mouth every 6 (six) hours if needed for nausea or vomiting 30 tablet 2 10/23/2023 11/22/2023 Active Start: 03-27-2019 End: 11-12-2019 take 4 [...] tablet,disintegrating Discontinued 4 MG PO Q8H 9 September 29, 2017 12:00am March 27, 2018 10:30pm propranolol hydrochloride 40 mg oral tablet (20 sources) beta-Adrenergic Lexi Start: 07-04-2023 take 1 [...] 2023 12:00am July 04, 2023 11:03am Start: 11-01-2022 End: 11-01-2023 take 1 capsule by mouth every twenty-four hours in the morning propranolol LA (Inderal LA) 80 MG 24 hr capsule Indications: Migraine without aura and without status migrainosus, not intractable (CMS/HCC) Take 1 capsule (80 mg) by mouth in the morning. Do not crush, chew, or split. . 30 capsule 11/01/2022 11/01/2023 Active Start: 09-26-2017 End: 09-28-2017 take 10 mg [...] Once monthly Quantity: 1 Refills: 3 Haim BLEACH ANALYST-LABORER, BLEACH ANALYST-HANDBAG FINISHER, Chica Start : 05-Nov-2019 Active 1.5 ML Pen amitriptyline hydrochloride 25 mg oral tablet (2 sources) Tricyclic Antidepressant Start: 10-25-2020 take 1 tablet by mouth at bedtime Amitriptyline HCl - 25 MG Oral Tablet TAKE 1 TABLET BY MOUTH AT BEDTIME Quantity: 30 Refills: 0 Ordered: 21-Nov-2020 DO Start : 25-Oct-2020 Complete azithromycin 250 mg oral tablet (16 sources) Macrolide Antimicrobial Start: 12-24-2023 End: 01-02-2024 [...] Quantity: 2 Refills: 0 Ordered: 05-Nov-2019 Haim HADDADN-LABORER, JOSE-HANDBAG FINISHER, Chica Start : 05-Nov-2019 Active cephalexin 500 mg oral capsule (8 sources) Cephalosporin Antibacterial Start: 09-29-2017 End: 03-27-2018 take 1 capsule by mouth every eight hours Cephalexin (Keflex) 500 mg capsule Discontinued 500 MG PO Q8H 21 September 29, 2017 12:00am March 27, 2018 10:29pm [...] once daily Quantity: 30 Refills: 3 Haim HADDADN-LABORER, BLEACH ANALYST-LEE Chica Start : 25-Aug-2019 Active Start: 08-25-2019 Citalopram Hyd robromide 10 MG Oral Tablet TAKE 1 AND 1/2 TABLETS DAILY. Quantity: 45 Refills: 5 Haim HADDADN-LABORER, BLEACH ANALYST-HANDBAG FINISHER, Chica Start : 25-Aug-2019 Active clonazePAM 0.5 [...] A DAY Quantity: 60 Refills: 4 Haim GARCIA-LABORER, JOSE-Chica CURTIS Start : 05-Feb-2019 Active Start: 10-11-2018 End: 10-16-2020 take 60 mg by mouth once daily Duloxetine Discontinued 60 MG PO Daily October 11, 2018 12:00am October 16, 2020 12:31am Start: 09-30-2018 take 1 capsule by [facility] once daily DULoxetine HCl - 40 MG Oral Capsule Delayed Release Particles TAKE 1 CAPSULE BY MOUTH EVERY DAY Quantity: 30 Refills: 2 Haim GARCIA-MT, JOSE-Chica CURTIS Start : 30-Sep-2018 Active DULoxetine HCl N ot-Taking DULoxetine HCl A ctive 1 ml erenumab-aooe 70 mg/ml auto-injector (7 sources) Start: 04-09-2021 inject 1 mL by subcutaneous injection every month Aimovig 70 MG/ML Subcutaneous Solution Auto-injector ADMINISTER 1 ML UNDER THE SKIN 1 TIME MONTHLY Quantity: 1 Refills: 3 Ordered: 09-Apr-2021 Haim GARCIA-MT, JOSE-Chica CURTIS Start : 09-Apr-2021 Active escitalopram 10 [...] Start: 11-01-2020 take 1 capsule by mo [facility] once daily FLUoxetine HCl - 10 MG Oral Capsule TAKE ONE CAPSULE BY MOUTH ONE TIME DAILY Quantity: 30 Refills: 0 Ordered: 01-Nov-2020 DO Start : 01-Nov-2020 Active Start: 03-29-2020 take 1 tablet by ashtyn once daily FLUoxetine HCl - 20 MG Oral Tablet TAKE 1 & 1/2 TABLETS BY MOUTH DAILY Quantity: 135 Refills: 1 Ordered: 30-Aug-2020 Haim GARCIA-MT, Chica GROVES Start : 29-Mar-2020 Active Start: 03-29-2020 take 1.5 tablets by mouth once daily FLUoxetine HCl - 20 MG Oral Tablet TAKE 1.5 TABLET Daily Quantity: 45 Refills: 3 Haim GARCIA-MTGERMAIN Kathleen Start : 29-Mar-2020 Active PROzac Active [...] 1 ml galcanezumab-gnlm 120 mg/ml prefilled syringe (15 sources) Start: 07-09-2023 End: 12-24-2023 inject 120 [...] 29, 2017 12:00am October 11, 2018 7:25pm ivabradine 5 mg oral tablet (2 sources) Hyperpolarization-activated Cyclic Nucleotide-gated Channel Lexi Start: 07-04-2023 End: 10-23-2023 Ivabradine HCl 5 MG tablet Twice daily 07/04/2023 10/23/2023 Discontinued (9 sources) Not-Taking Act sigifredo ketorolac tromethamine 10 mg oral tablet (20 sources) Nonsteroidal Anti-inflammatory Drug, Cyclooxygenase Inhibitor Start: 03-29-2020 take 1 tablet by mouth every six hours Ketorolac Tromethamine 10 MG Oral Tablet take 1 tablet at headache onset may repeat once in 6 hours if needed. Quantity: 15 Refills: 0 Ordered: 22-Aug-2020 Haim BLEACH ANALYST-LABORER, BLEACH ANALYST-HANDBAG FINISHER, Chica Start : 29-Mar-2020 Active Start: 03-27-2019 End: [...] if needed. Quantity: 15 Refills: 0 Haim BLEACH ANALYST-LABORER, BLEACH ANALYST-HANDBAG FINISHER, Chica Start : 29-Apr-2018 Active lamoTRIgine 25 mg [...] Quantity: 360 Refills: 0 Ordered: 12-Dec-2019 Haim BLEACH ANALYST-LABORER, BLEACH ANALYST-HANDBAG FINISHER, Chica Start : 30-Dec-2018 End : 30-Aug-2020 [...] Start: 12-07-2019 take 1 capsule by mo [facility] twice daily at mealtime Amitiza 8 MCG 1 capsule with food and water Orally Twice a day for 30 day(s) Nov, Not-Taking Magnesium (1 source) Start: 06-18-2023 End: 10-23-2023 take 1 capsule by mouth once daily Magnesium 400 MG capsule Indications: Palpitations Take 400 mg by mouth Daily 30 capsule 06/18/2023 10/23/2023 Discontinued metoclopramide 10 mg oral tablet (8 sources) Dopamine-2 Receptor Antagonist Start: 03-27-2019 End: 11-12-2019 take 1 tablet by mouth every six hours Metoclopramide Hcl (Reglan) 10 mg tablet Discontinued 10 MG PO Q6H March 27, 2019 1:00am November 12, 2019 9:48pm 24 hr metoprolol succinate 25 mg extended release oral tablet (8 sources) beta-Adrenergic Lexi Start: 10-23-2023 End: 10-22-2024 take 1 tablet by mouth once daily metoprolol succinate XL (Toprol-XL) 25 MG 24 hr tablet Indications: Palpitations Take 1 tablet (25 mg) by mouth Daily Do not crush or chew. 30 tablet 11 10/23/2023 12/24/2023 Discontinued (Other) metroNIDAZOLE 500 mg [...] Quantity: 270 Refills: 0 Ordered: 03-Sep-2021 Haim BLEACH ANALYST-LABORER, BLEACH ANALYST-HANDBAG FINISHER, Chica Start : 11-May-2021 Active Josie 0.25-35 [...] October 09, 2020 3:25pm polyethylene glycol 3350 57077 mg powder for oral solution (20 sources) Osmotic Laxative Start: 11-13-2019 End: 10-16-2020 Polyethylene Glycol 3350 (Miralax) 17 gram/dose powder Discontinued 17 GM PO Twice daily November 13, 2019 12:00am October 16, 2020 12:31am MiraLax Active polyethylene glycol 3350 797404 mg / potassium chloride 2970 mg / sodium bicarbonate 6740 mg / sodium chloride 5860 mg / sodium sulfate 81956 mg powder for oral solution (8 sources) [...] October 13, 2018 6:20pm predniSONE Activ e Phloggbr-Lfy-So-Fa (5 sources) Start: 09-18-2022 End: 07-04-2023 take 1 tablet by mouth once Mialfsct-Iqf-Ag-Fa Discontinued TAB PO September 18, 2022 12:00am July 04, 2023 10:12am Start: 09-18-2022 take 1 tablet by mouth once Pr enatal Nzmydkum-Syu-Fs-Fa Active TAB PO September 18, 2022 12:00am [...] 24 HOURS. Quantity: 9 Refills: 3 Haim HADDADN-LABORER, BLEACH ANALYST-HANDBAG FINISHER, Chica Start : 30-Dec-2018 Active sacrosidase 8500 [...] Quantity: 90 Refills: 2 Ordered: 22-Mar-2021 Haim BLEACH ANALYST-LABORER, BLEACH ANALYST-HANDBAG FINISHER, Chica Start : 22-Mar-2021 End : 30-May-2021 [...] Translations: [Presence of (intrauterine) contraceptive device] Episodic Fever of unknown origin (2 sources) Fever; Translations: [Fever, unspecified] 02-09-2024 Episodic Fluid and electrolyte disorders (2 sources) [...] Chronic Immunizations and screening for infectious disease (8 sources) Contact with and (suspected) exposure to other viral communicable diseases; Translations: [Contact with and (suspected) exposure to other communicable diseases] Onset: 11-19-2020 Resolved: 04-04-2021 Episodic Menstrual disorders (20 sources) Menometrorrhagia; Translations: [Excessive and frequent menstruation with irregular cycle] Onset: 11-01-2022 11-01-2022 Chronic Mood disorders (6 sources) Mood swings; Translations: [Mood swings] Chronic Mood disorders (17 sources) Mood swings; Translations: [Emotional lability] Episodic Nausea and vomiting (20 sources) Nausea; Translations: [Nausea] Onset: 11-06-2020 Resolved: 11-06-2020 Episodic Nonspecific chest pain (17 sources) Precordial pain; Translations: [Precordial pain] Episodic Other acquired deformities (9 sources) Acquired deformity of lower limb; Translations: [Unspecified acquired deformity of right lower leg] Onset: 01-18-2024 01-18-2024 Episodic Other bone disease and musculoskeletal deformities [...] specified soft tissue disorders] 01-02-2024 Episodic Other connective tissue disease (4 sources) Pain in right lower limb; Translations: [Pain in right leg] Onset: 01-12-2024 01-12-2024 Episodic Other disorders of stomach and duodenum (20 sources) Indigestion; Translations: [Functional dyspepsia] Episodic Other female genital disorders (2 sources) Abnormal uterine bleeding; Translations: [Other specified abnormal uterine and vaginal bleeding] Onset: 05-17-2021 Chronic Other female genital disorders (7 sources) History of past delivery; Translations: [Status post vaginal delivery] 09-19-2022 Episodic Other female genital disorders (2 sources) Vaginal discharge; Translations: [Other specified noninflammatory disorders of vagina] 12-24-2023 Episodic Other gastrointestinal disorders (20 sources) Celiac [...] source) Disorder of fructose metabolism, 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 Other and delivery including normal (18 sources) ; Translations: [Encounter for supervision of normal , unspecified, unspecified trimester] Onset: 01-22-2024 04-10-2022 Episodic Other screening for suspected conditions (not mental disorders or infectious disease) (4 sources) Patient encounter status; Translations: [Encounter for other specified screening] 12-24-2023 Episodic Other upper respiratory infections (16 sources) Acute pharyngitis, unspecified; Translations: [Acute upper [...] [18 weeks gestation of ] 12-24-2023 Episodic Residual codes; unclassified (2 sources) Gestation period, 17 weeks; Translations: [17 weeks gestation of ] 12-24-2023 Episodic Residual codes; unclassified (6 sources) Gestation period, 21 weeks; Translations: [21 weeks gestation of ] Onset: 01-22-2024 01-22-2024 Episodic Substance-related disorders (20 sources) Smoker; Translations: [Nicotine dependence, unspecified, uncomplicated] Onset: 11-01-2022 11-25-2021 Chronic Comment on above: Added secondary to d ocumentation in Social History. Syncope (20 sources) Syncope; Translations: [Syncope and collapse] Episodic Unclassified (20 sources) OB Reminders Onset: 07-23-2022 07-23-2022 Urinary tract infections (20 sources) Bacterial urinary infection; Translations: [Urinary tract infection, site not specified] 10-16-2020 Episodic Past or Other Problems Problem Classification Problem Date Documented Da te Episodic/Chronic Cardiac dysrhythmias (20 sources) Sinus tachycardia; Translations: [Tachycardia, unspecified] Onset: 05-31-2023 06-18-2023 Episodic Malaise and fatigue (20 sources) Asthenia; Translations: [Weakness] Onset: 02-21-2020 Resolved: 01-18-2024 04-10-2022 Episodic Other circulatory disease (7 sources) Postural orthostatic tachycardia syndrome ; Translations: [POTS (postural orthostatic tachycardia syndrome)] Onset: 07-04-2023 Episodic Other connective tissue disease (20 sources) Pelvic floor dysfunction; Translations: [Other specified disorders of muscle] Onset: 11-01-2022 11-01-2022 Episodic Other connective tissue disease (1 source) Other specified disorders of muscle Onset: 2021 Resolved: 2021 Episodic Other connective tissue disease (7 sources) Pain of right calf; Translations: [Pain in right lower leg] Onset: 01-18-2024 Resolved: 01-18-2024 01-18-2024 Episodic Other ear and sense organ disorders [...] Test Name Value Interpretation Reference Range Facility Laboratory - Microbiology an d Antimicrobial susceptibilityon 02-09-2024 SARS-CoV-2 (COVID-19) RNA PAMELA+probe Ql (Unsp spec) Negative [facility] No Panel Informationon 02-08 FLU A Negative [facility] FLU B Negative [facility] Urinalysis macro (dipstick) panel (U)on 01-22-2024 Bilirubin, UA Negative Negative - 4(70) +++ mg/dL [facility] Blood, UA Negative Negative - 50 Soto/mcL [facility] Clarity, UA Clear [facility] Color, UA Yellow [facility] Glucose, UA Negative Negative - 1999(110) ++++ mg/dL [facility] Interpretation and review of laboratory results Abnormal [facility] Ketones, UA Negative Negative - 160(16) ++++ mg/dL [facility] Leukocytes, UA 1+ Negative - 500+++ Adarsh/mcL [facility] Comment on above: small Nitrite, UA Negative Negative - Positive [facility] pH, UA 6 5 - 9 [facility] Protein, UA Negative Negative - 1999(20) ++++ mg/dL [facility] Spec Grav, UA 1.02 1 - 1.03 [facility] Urobilinogen, UA 0.2 0.2 - 12 mg/dL [facility] Comprehensive Metabolic Pane [facility] 01-03-2024 Albumin [Mass/Vol] 3.8 g/dL Normal 3.5-5.7 [facility] Comment on above: Performed By: #### C MP #### [address] Albumin/Globulin [Mass ratio] 1.7 {ratio} Normal [facility] Comment on above: Performed By: #### C MP #### [address] ALP [Catalytic activity/Vol] 34 U/L Normal 34-104 [facility] Comment on above: Result Comment: PERF ORMED BY: [place] [id number] PATHOLOGIST POST SPLITTER SHAHANA BRITTON M.D. Performed By: #### C MP #### [address] ALT [Catalytic activity/Vol] 9 U/L Normal 7-52 [facility] Comment on above: Performed By: #### C MP #### [address] Anion gap [Moles/Vol] 8.8 mmol/L Normal 6.0-15.0 [facility] Comment on above: Performed By: #### C MP #### [address] AST [Catalytic activity/Vol] 18 U/L Normal 13-39 [facility] Comment on above: Performed By: #### C MP #### [address] Bilirubin [Mass/Vol] 0.4 mg/dL Normal 0.3-1.0 [facility] Comment on above: Performed By: #### C MP #### [address] Calcium [Mass/Vol] 8.6 mg/dL Normal 8.6-10.3 [facility] Comment on above: Performed By: #### C MP #### [address] Chloride [Moles/Vol] 106 mmol/L Normal 98-107 [facility] Comment on above: Performed By: #### C MP #### [address] CO2 [Moles/Vol] 25.6 mmol/L Normal 21.0-31.0 [facility] Comment on above: Performed By: #### C MP #### [address] Creatinine [Mass/Vol] 0.48 mg/dL Low 0.60-1.20 [facility] Comment on above: Performed By: #### C MP #### [address] GFR/1.73 sq M.predicted MDRD (S/P/Bld) [Vol rate/Area] mL/min/{1.73_m2} Normal [facility] Comment on above: Performed By: #### C MP #### [address] Globulin (S) [Mass/Vol] 2.2 g/dL Normal [facility] Comment on above: Performed By: #### C MP #### [address] Glucose [Mass/Vol] 70 mg/dL Normal 70-100 [facility] Comment on above: Result Comment: [place] Glucose Reference Range is dependent on time and content of last meal. Glucose of more than 200 mg/dL in a nonstressed, ambulatory subject supports the diagnosis of Diabetes Mellitus. ADA recommended reference range Performed By: #### C MP #### [address] Potassium [Moles/Vol] 4.4 mmol/L Normal 3.5-5.1 [facility] Comment on above: Performed By: #### C MP #### [address] Protein [Mass/Vol] 6.0 g/dL Low 6.4-8.9 [facility] Comment on above: Performed By: #### C MP #### [address] Sodium [Moles/Vol] 136 mmol/L Normal 136-145 [facility] Comment on above: Performed By: #### C MP #### [place] [address] [place] Urea nitrogen [Mass/Vol] 9 mg/dL Normal 7-25 [facility] Comment on above: Performed By: #### C MP #### [address] Hemogram CBC Without Diffon 01-03-2024 Erythrocyte distribution width (RBC) [Ratio] 13.3 % Normal 11.9-15.3 [facility] Comment on above: Performed By: #### C BCNO #### [place] [address] [place] Hematocrit (Bld) [Volume fraction] 32.2 % Low 34.0-46.4 [facility] Comment on above: Performed By: #### C BCNO #### [address] Hemoglobin (Bld) [Mass/Vol] 11.1 g/dL Low 11.8-15.4 [facility] Comment on above: Performed By: #### C BCNO #### [facility] [address] MCH (RBC) [Entitic mass] 31.3 pg Normal 24.7-34.3 [facility] Comment on above: Performed By: #### C BCNO #### [address] MCV (RBC) [Entitic vol] 90.8 fL Normal 80-100 [facility] Comment on above: Performed By: #### C BCNO #### [address] Mean Corpuscular HGB Conc 34.4 g/dL Normal 32.0-35.0 [facility] Comment on above: Performed By: #### C BCNO #### [address] Platelet mean volume (Bld) [Entitic vol] 8.2 fL Normal 6.3-10.7 [facility] Comment on above: Result Comment: PERF ORMED BY: [place] [address] PATHOLOGIST [employer] SPLITTER SHAHANA BRITTON M.D. Performed By: #### C BCNO #### [address] Platelets (Bld) [#/Vol] 219 10*3/uL Normal 150-450 [facility] Comment on above: Performed By: #### C BCNO #### [address] RBC (Bld) [#/Vol] 3.55 10*6/uL Low 3.60-5.[address] [facility] Comment on above: Performed By: #### C BCNO #### [address] WBC (Bld) [#/Vol] 7.2 10*3/uL Normal 3.8-11.6 [facility] Comment on above: Performed By: #### C BCNO #### [facility] [address] [id number] [facility] Laboratory - Chemistry and C hemistry - challengeon 01-03-2024 Albumin [Mass/Vol] 3.8 g/dL 3.5 - 5.7 g/dL [facility] Albumin/Globulin [Mass ratio] 1.7 {ratio} [facility] ALP [Catalytic activity/Vol] 34 U/L 34 - 104 U/L [facility] ALT [Catalytic activity/Vol] 9 U/L 7 - 52 U/L [facility] Anion gap [Moles/Vol] 8.8 mmol/L 6.0 - 15.0 meq/L [facility] AST [Catalytic activity/Vol] 18 U/L 13 - 39 U/L [facility] Bilirubin [Mass/Vol] 0.4 mg/dL 0.3 - 1 .0 mg/dL [facility] Calcium [Mass/Vol] 8.6 mg/dL 8.6 - 10. 3 mg/dL [facility] Chloride [Moles/Vol] 106 mmol/L 98 - 10 7 mmol/L [facility] CO2 [Moles/Vol] 25.6 mmol/L 21.0 - 31.0 mmol/L [facility] Creatinine (U) [Mass/Vol] 0.48 mg/dL Low 0.60 - 1.20 mg/dL [facility] Globulin (S) [Mass/Vol] 2.2 g/dL [facility] Glucose [Mass/Vol] 70 mg/dL 70 - 100 mg/dL [facility] Comment on above: Random Glucose Refer ence Range is dependent on time and content of last meal. Glucose of more than 200 mg/dL in a nonstressed, ambulatory subject supports the diagnosis of Diabetes Mellitus. ADA recommended reference range Potassium [Moles/Vol] 4.4 mmol/L 3.5 - 5.1 mmol/L [facility] Protein [Mass/Vol] 6 g/dL Low 6.4 - 8.9 g/dL [facility] Sodium [Moles/Vol] 136 mmol/L 136 - 145 mmol/L [facility] Urea nitrogen [Mass/Vol] 9 mg/dL 7 - 25 mg/dL [facility] Laboratory - Hematology and Cell countson 01-03-2024 Erythrocyte distribution width (RBC) [Ratio] 13.3 % 11.9 - 15.3 % [facility] Hematocrit (Bld) [Volume fraction] 32.2 % Low 34.0 - 46.4 % [facility] Hemoglobin (Bld) [Mass/Vol] 11.1 g/dL Low 11.8 - 15.4 g/dL [facility] MCH (RBC) [Entitic mass] 31.3 pg 24.7 - 34.3 pg [facility] MCHC (RBC) [Mass/Vol] 34.4 g/dL 32.0 - 35.0 g/dL [facility] MCV (RBC) [Entitic vol] 90.8 fL 80 - 100 fL [facility] Platelet mean volume (Bld) [Entitic vol] 8.2 fL 6.3 - 10.7 fL [facility] Platelets (Bld) [#/Vol] 219 10*3/uL 150 - 450 10*3/uL [facility] Laboratory - Urinalysison RBC LM.HPF (Urine sed) [#/Area] 3.55 10*6/uL Low 3.60 - 5.00 10*6/uL [facility] WBC LM.HPF (Urine sed) [#/Area] 7.2 10*3/uL 3.8 - 11.6 10*3/uL [facility] No Panel Informationon 01-02 ESTIMATED GFR mL/Min [facility] care Interpretation and review of laboratory results Abnormal [facility] Interpretation and review of laboratory results Abnormal [facility] e IGP,APTIMA HPV,AGE GDLNon AGE GDLN ACOG TESTING Note . [facility] Comment on above: TESTS RESULT FLAG UN ITS REF RANGE LAB Clinician Provided Cytology Information Source.............Cervix No. of containers..01 ThinPrep Vial Age Algo ACOG Raine... FLAG LEGEND: L-Low Normal,H-High Normal,LL-Alert Low,HH-Alert High <-Panic Low,>-Panic High,A-Abnormal,AA-Critical Abnormal Performed at: 01 =G [facility] [place] [address] [place] [address] Laila Addison MD, IGP, RFX APTIMA HPV ASCU Note . [facility] Comment on above: TESTS RESULT FLAG UN ITS REF RANGE LAB DIAGNOSIS: 02 NEGATIVE FOR INTRAEPITHELIAL LESION OR MALIGNANCY. THIS SPECIMEN WAS RESCREENED PART OF OUR COACH TOUR DRIVER PROGRAM. Specimen adequacy: 02 Satisfactory for evaluation. Endocervical and/or squamous metaplastic cells (endocervical component) are present. Performed by: 03 Rachael Baig, [employer] And Hat Production Supervisor (ASC) QC reviewed by: 02 Mary Gonsalves, [employer] And Hat Production Supervisor (ASCP) . 02 Note: Note 02 The Pap [...] <-Panic Low,>-Panic High,A-Abnormal,AA-Critical Abnormal Performed at: [address] [address] Laila Addison MD, 03 [facility] [address] [address] V Hugo PhD, Performed at: - [address] [id number] Director Of Market Intelligence: Laila Addison MD, Phone: [phone] Performed at: [facility] [address] [id number] Director Of Market Intelligence: Laila Addison MD, Phone: [phone] [facility] US.doppler Lower extremity v matthieu villanueva 01-02-2024 EXAM: [facility] US LOWER EXTREMITY VENOUS DUPLEX LEFT HISTORY: [...] PITER CULVER MD at 02-Jan-2024 05:15:11 PM [facility] Piter Culver MD - 01/02/2024 EXAM: [facility] US LOWER EXTREMITY VENOUS DUPLEX LEFT HISTORY: [...] DVT in the left lower extremity. Electronically Signed:Celio miller signed by PITER CULVER MD at 02-Jan-2024 05:15:11 PM [facility] Radiology Study observation (narrative) [facility] US.doppler Lower extremity v ein - leftOrdered By: Piter Culver on 01-02-2024 [facility] [employer] Work Phone: [facility] US LOWER EXTREMITY VENO US DUPLEX LEFTon [...] DVT in the left lower extremity. Electronically Signed:Celio y signed by PITER CULVER MD at 02-Jan-2024 05:15:11 PM [facility] Normal Not Available RECURRENT VAGINITIS (HTRX)on 12-26-2023 ATOPOBIUM VAGINAE 0 [facility] ATOPOBIUM VAGINAE Not detected [facility] BVAB 2,3 (BACTERIAL VAGINOSIS ASSOCIATED BACTERIA 2, 3); MOBILUNCUS SPP 0 [facility] BVAB 2,3 (BACTERIAL VAGINOSIS ASSOCIATED BACTERIA 2, 3); MOBILUNCUS SPP Not detected [facility] ROWENA ALBICANS, PARAPSILOSIS, TROPICALIS 0 [facility] ROWENA ALBICANS, PARAPSILOSIS, TROPICALIS Not detected [facility] ROWENA GLABRATA 0 [facility] ROWENA GLABRATA Not detected [facility] ROWENA KRUSEI 0 [facility] ROWENA KRUSEI Not detected [facility] CHLAMYDIA TRACHOMATIS 0 [facility] CHLAMYDIA TRACHOMATIS Not detected [facility] GARDNERELLA VAGINALIS 0 [facility] GARDNERELLA VAGINALIS Not detected [facility] MEGASPHAERA (TYPES 1, 2) 0 [facility] MEGASPHAERA (TYPES 1, 2) Not detected [facility] MYCOPLASMA GENITALIUM 0 [facility] MYCOPLASMA GENITALIUM Not detected [facility] NEISSERIA GONORRHOEAE 0 [facility] NEISSERIA GONORRHOEAE Not detected [facility] TRICHOMONAS VAGINALIS 0 [facility] TRICHOMONAS VAGINALIS Not detected [facility] Urinalysis macro (dipstick) panel (U)on 12-24-2023 Bilirubin, UA Negative Negative - 4(70) +++ mg/dL [facility] Blood, UA Negative Negative - 50 Soto/mcL [facility] Healthcare Clarity, UA Clear [facility] re Color, UA Yellow [facility] Glucose, UA Negative Negative - 1999(110) ++++ mg/dL [facility] Interpretation and review of laboratory results Normal [facility] Ketones, UA Positive Negative - 160(16) ++++ mg/dL [facility] Leukocytes, UA Positive Negative - 500+++ Adarsh/mcL [facility] Nitrite, UA Negative Negative - Positive [facility] pH, UA 5.5 5 - 9 [facility] Health[facility] e Protein, UA Negative Negative - 1999(20) ++++ mg/dL [facility] Spec Grav, UA 1.02 1 - 1.03 [facility] Urobilinogen, UA 1.0 0.2 - 12 mg/dL [facility] Urinalysis macro (dipstick) panel (U)on 11-25-2023 Bilirubin, UA Negative Negative - 4(70) +++ mg/dL [facility] Blood, UA Negative Negative - 50 Soto/mcL [facility] Healthcare Clarity, UA Clear [facility] Health[facility] re Color, UA Yellow [facility] Glucose, UA Negative Negative - 1999(110) ++++ mg/dL [facility] Interpretation and review of laboratory results Abnormal [facility] Ketones, UA Negative Negative - 160(16) ++++ mg/dL [facility] Leukocytes, UA Trace Negative - 500+++ Adarsh/mcL [facility] Nitrite, UA Negative Negative - Positive [facility] pH, UA 5.5 5 - 9 [facility] e Protein, UA Negative Negative - 1999(20) ++++ mg/dL [facility] Spec Grav, UA 1.02 1 - 1.03 [facility] Urobilinogen, UA 0.2 0.2 - 12 mg/dL [facility] ALL CBC WITH AUTO DIFFon BASOPHILS ABSOLUTE AUTO 0.0 [facility] Basophils/100 WBC (Bld) 0.4 % 0.2 - 2.0 % [facility] Eosinophils/100 WBC (Bld) 1.3 % 0.9 - 7.0 % [facility] Erythrocyte distribution width (RBC) [Ratio] 11.9 % 11.0 - 15.0 % [facility] Hematocrit (Bld) [Volume fraction] 37.1 % 36.0 - 48.0 % [facility] Hemoglobin (Bld) [Mass/Vol] 12.6 g/dL 12.0 - 16.0 g/dL [facility] IMMATURE GRANULOCYTES ABS AUTO 0.04 High [facility] Immature granulocytes/100 WBC (Bld) 0.5 % 0.0 - 0.5 % [facility] Interpretation and review of laboratory results Abnormal [facility] LYMPHOCYTES ABSOLUTE AUTO 1.6 [facility] Lymphocytes/100 WBC (Bld) 18.7 % Low 20.5 - 60.0 % [facility] MCH (RBC) [Entitic mass] 30.5 pg 26.7 - 34.0 pg [facility] MCHC (RBC) [Mass/Vol] 34.0 g/dL 29.9 - 35.2 g/dL [facility] MCV (RBC) [Entitic vol] 89.8 fL 81.0 - 99.0 fL [facility] MONOCYTES ABSOLUTE AUTO 0.8 [facility] Monocytes/100 WBC (Bld) 9.0 % 1.7 - 12.0 % [facility] NEUTROPHILS ABSOLUTE AUTO 5.9 [facility] Neutrophils/100 WBC (Bld) 70.1 % 43.0 - 75.0 % [facility] Platelet mean volume (Bld) [Entitic vol] 10.5 fL 9.5 - 13.5 fL [facility] TBH EO # 0.1 [facility] e TBH PLT 231 [facility] RBC 4.13 Low [facility] WBC 8.4 [facility] HCG ( test) Ql (U)o n 10-23-2023 Interpretation and review of laboratory results Abnormal [facility] Preg Test, Ur Positive [facility] care [facility] Urinalysis macro (dipstick) panel (U)on 10-23-2023 Bilirubin, UA Negative Negative - 4(70) +++ mg/dL [facility] Blood, UA Positive Negative - 50 Soto/mcL [facility] Comment on above: small Clarity, UA Clear [facility] re Color, UA Yellow [facility] Glucose, UA Negative Negative - 1999(110) ++++ mg/dL [facility] Interpretation and review of laboratory results Abnormal [facility] Ketones, UA Negative Negative - 160(16) ++++ mg/dL [facility] Leukocytes, UA Positive Negative - 500+++ Adarsh/mcL [facility] Comment on above: large Nitrite, UA Negative Negative - Positive [facility] pH, UA 5.5 5 - 9 [facility] Protein, UA Negative Negative - 1999(20) ++++ mg/dL [facility] Spec Grav, UA 1.025 1 - 1.03 [facility] Urobilinogen, UA 0.2 0.2 - 12 mg/dL [facility] *OFFICE ONLY*on 06-11 [facility] ECG *OFFICE ONLY* [facility] [place] [address] Electrocardiograph Report Signed Patient: Shiv Evangelista MR#: [id number] : 2000 Acct:[id number] Age/Sex: 23 / F ADM Date: 07/04/23 Loc: EKGCARDIO Room: Type: [facility] Attending Dr: Artur Kang MD Ordering Provider: [...] abnormality Abnormal ECG Confirmed by Emmy Jimenez ([id number]) on 07/08/2023 1:09:14 PM Referred By: Electronically Signed By:Emmy Jimenez Transcribed By: MUS Signed By Emmy Jimenez MD 4 1309 Normal [facility] Basophils Auto (Bld) [#/Vol] Ordered By: YUVAL PETE on 09-19-2022 Basophils (Bld) [#/Vol] 0.0 10*3/uL 0.0-0.2 [facility] Basophils/100 WBC Auto (Bld) Ordered By: YUVAL PETE on 09-19-2022 Basophils/100 WBC (Bld) 0.2 % . [facility] Eosinophils Auto (Bld) [#/Vo l]Ordered By: YUVAL PETE on 09-19-2022 Eosinophils (Bld) [#/Vol] 0.0 10*3/uL 0.0-0.45 [facility] Eosinophils/100 WBC Auto (Bl d)Ordered By: YUVAL PETE on 09-19-2022 Eosinophils/100 WBC (Bld) 0.1 % . [facility] Erythrocyte distribution wid th Auto (RBC) [Ratio]Ordered By: YUVAL PETE on 09-19-2022 Erythrocyte distribution width (RBC) [Ratio] 13.3 % 11.9-15.3 [facility] Hematocrit Auto (Bld) [Volum e fraction]Ordered By: YUVAL PETE on 09-19-2022 Hematocrit (Bld) [Volume fraction] 28.0 % 34.0-46.4 [facility] Hemoglobin [Mass/volume] in BloodOrdered By: YUVAL PETE on 09-19-2022 Hemoglobin (Bld) [Mass/Vol] 9.3 g/dL 11.8-15.4 [facility] Leukocytes [#/volume] correc dionicio for nucleated erythrocytes in Blood by Automated counOrdered By: YUVAL PETE on 09-19-2022 WBC corrected for nucl RBC Auto (Bld) [#/Vol] 14.2 10*3/uL 3.8-11.6 [facility] Lymphocytes Auto (Bld) [#/Vo l]Ordered By: YUVAL PETE on 09-19-2022 Lymphocytes (Bld) [#/Vol] 1.2 10*3/uL 1.00-4.8 [facility] Lymphocytes/100 WBC Auto (Bl d)Ordered By: YUVAL PETE on 09-19-2022 Lymphocytes/100 WBC (Bld) 8.5 % . [facility] MCH Auto (RBC) [Entitic mass ]Ordered By: YUVAL PETE on 09-19-2022 MCH (RBC) [Entitic mass] 28.7 pg 24.7-34.3 [facility] MCHC Auto (RBC) [Mass/Vol]Or dered By: YUVAL PETE on 09-19-2022 MCHC (RBC) [Mass/Vol] 33.2 g/dL 32.0-35.0 [facility] MCV Auto (RBC) [Entitic vol] Ordered By: YUVAL PETE on 09-19-2022 MCV (RBC) [Entitic vol] 86.3 fL 80-100 [facility] Monocytes Auto (Bld) [#/Vol] Ordered By: YUVAL PETE on 09-19-2022 Monocytes (Bld) [#/Vol] 1.5 10*3/uL 0.0-0.8 [facility] Monocytes/100 WBC Auto (Bld) Ordered By: YUVAL PETE on 09-19-2022 Monocytes/100 WBC (Bld) 10.2 % . [facility] Neutrophils Auto (Bld) [#/Vo l]Ordered By: YUVAL PETE on 09-19-2022 Neutrophils (Bld) [#/Vol] 11.5 10*3/uL 1.8-7.7 [facility] Neutrophils/100 WBC Auto (Bl d)Ordered By: YUVAL PETE on 09-19-2022 Neutrophils/100 WBC (Bld) 81.0 % . [facility] Nucleated erythrocytes [Pres ence] in Blood by Automated countOrdered By: YUVAL PETE on 09-19-2022 Nucleated RBC Auto Ql (Bld) 0.0 /100{WBC} 0-0.5 [facility] Platelet mean volume Auto (B ld) [Entitic vol]Ordered By: YUVAL PETE on 09-19-2022 Platelet mean volume (Bld) [Entitic vol] 8.8 fL 6.3-10.7 [facility] Platelets Auto (Bld) [#/Vol] Ordered By: YUVAL PETE on 09-19-2022 Platelets (Bld) [#/Vol] 181 10*3/uL 150-450 [facility] RBC Auto (Bld) [#/Vol]Ordere d By: YUVAL PETE on 09-19-2022 RBC (Bld) [#/Vol] 3.24 10*6/uL 3.60-5.00 [facility] WBC Auto (Bld) [#/Vol]Ordere d By: YUVAL PETE on 09-19-2022 WBC (Bld) [#/Vol] 14.2 10*3/uL 3.8-11.6 [facility] Amphetamine Screen Ql (U)Ord ered By: YUVAL PETE on 09-18-2022 Amphetamines Ql (U) Negative Negative [facility] Automated epithelial cells c ount in urine sediment (number/area)Ordered By: YUVAL PETE on 09-18-2022 Epithelial cells Auto (Urine sed) [#/Area] 10-19 [HPF] 0-2 [facility] Automated erythrocytes count in urine sediment (number/area)Ordered By: YUVAL PETE on 09-18-2022 RBC Auto (Urine sed) [#/Area] 0-1 [HPF] 0-4 [facility] Automated leukocytes count i n urine sediment (number/area)Ordered By: YUVAL PETE on 09-18-2022 WBC Auto (Urine sed) [#/Area] 20-49 [HPF] 0-4 [facility] Automated urine hyaline cast s count (number/volume)Ordered By: YUVAL PETE on 09-18-2022 Hyaline casts Auto (U) [#/Vol] None seen [LPF] 0-1 [facility] Barbiturates [Presence] in U rine by Screen methodOrdered By: YUVAL PETE on 09-18-2022 Barbiturates Screen Ql (U) Negative Negative [facility] Benzodiazepines Screen Ql (U )Ordered By: YUVAL PETE on 09-18-2022 Benzodiazepines Ql (U) Negative Negative [facility] Benzoylecgonine [Presence] i n Urine by Screen methodOrdered By: YUVAL PETE on 09-18-2022 Benzoylecgonine Screen Ql (U) Negative Negative [facility] Bilirubin Test strip Ql (U)O rdered By: YUVAL PETE on 09-18-2022 Bilirubin Ql (U) Negative Negative [facility] Color Auto (U)Ordered By: CHARLES PETE on 09-18-2022 Color (U) Yellow Yellow [facility] Ketones Auto test strip (U) [Mass/Vol]Ordered By: YUVAL PETE on 09-18-2022 Ketones (U) [Mass/Vol] Negative Negative [facility] Nitrite Test strip Ql (U)Ord ered By: YUVAL PETE on 09-18-2022 Nitrite Ql (U) Negative Negative [facility] Opiates [Presence] in Urine by Screen methodOrdered By: YUVAL PETE on 09-18-2022 Opiates Screen Ql (U) Negative Negative [facility] Phencyclidine Screen Ql (U)O rdered By: YUVAL PETE on 09-18-2022 Phencyclidine Ql (U) Negative Negative [facility] Comment on above: These are unconfirme d results and should not be used for legal purposes. Drug Cut-Off Concentration: AMPH 1000 ng/mL LESLEY 200 ng/mL NETTIE 200 ng/mL COCM 300 ng/mL OP 300 ng/mL PCP 25 ng/mL Protein Auto test strip (U) [Mass/Vol]Ordered By: YUVAL PETE on 09-18-2022 Protein (U) [Mass/Vol] Negative Negative [facility] Reagin Ab [Presence] in Seru m by RPROrdered By: YUVAL PETE on 09-18-2022 Reagin Ab RPR Ql (S) Non-Reactive Non Reactive [facility] Comment on above: Performed at: [address] [id number] Director: Tony Avila PhD, Phone: [phone] Specific gravity Auto test s trip (U) [Rel density]Ordered By: YUVAL PETE on 09-18-2022 Specific gravity (U) [Rel density] 1.004 1.001-1.030 [facility] Urine bacteria detection by automated methodOrdered By: YUVAL PETE on 09-18-2022 Bacteria Auto Ql (U) 2+ None Seen [facility] Urine clarity by refractomet ry automatedOrdered By: YUVAL PETE on 09-18-2022 Clarity Refractometry automated (U) Cloudy Clear [facility] Urine culture routineOrdered By: YUVAL PETE on 09-18-2022 Bacteria identified Cx Nom (U) 2 Days [facility] Urine glucose measurement by automated test strip (mass/volume)Ordered By: YUVAL PETE on 09-18-2022 Glucose Auto test strip (U) [Mass/Vol] Normal mg/dL Normal [facility] Urine hemoglobin detection b y automated test stripOrdered By: YUVAL PETE on 09-18-2022 Hemoglobin Auto test strip Ql (U) Trace Negative [facility] Urine leukocyte esterase det ection by automated test stripOrdered By: YUVAL PETE on 09-18-2022 Leukocyte esterase Auto test strip Ql (U) 4+ Negative [facility] Urobilinogen Auto test strip (U) [Mass/Vol]Ordered By: YUVAL PETE on 09-18-2022 Urobilinogen (U) [Mass/Vol] Normal mg/dL Normal [facility] pH Auto test strip (U)Ordere d By: YUVAL PETE on 09-18-2022 pH (U) 7.0 [pH] 5.0-9.0 [facility] Group B Streptococcus cultur eOrdered By: Chica Newman on 09-03-2022 S. agalactiae Org specific cx Ql (Unsp spec) No Group B Beta Streptococcus Isolated 3 Days [facility] Amphetamine Screen Ql (U)Ord ered By: Terence Garcia on 08-10-2022 Amphetamines Ql (U) Negative Negative [facility] Automated erythrocytes count in urine sediment (number/area)Ordered By: Terence Garcia on 08-10-2022 RBC Auto (Urine sed) [#/Area] 0-1 [HPF] 0-4 [facility] Automated leukocytes count i n urine sediment (number/area)Ordered By: Terence Garcia on 08-10-2022 WBC Auto (Urine sed) [#/Area] 10-19 [HPF] 0-4 [facility] Barbiturates [Presence] in U rine by Screen methodOrdered By: Terence Garcia on 08-10-2022 Barbiturates Screen Ql (U) Negative Negative [facility] Benzodiazepines Screen Ql (U )Ordered By: Terence Garcia on 08-10-2022 Benzodiazepines Ql (U) Negative Negative [facility] Benzoylecgonine [Presence] i n Urine by Screen methodOrdered By: Terence Garcia on 08-10-2022 Benzoylecgonine Screen Ql (U) Negative Negative [facility] Bilirubin Test strip Ql (U)O rdered By: Terence Garcia on 08-10-2022 Bilirubin Ql (U) Negative Negative [facility] Color Auto (U)Ordered By: Carla Garcia on 08-10-2022 Color (U) Yellow Yellow [facility] Ketones Auto test strip (U) [Mass/Vol]Ordered By: Terence Garcia on 08-10-2022 Ketones (U) [Mass/Vol] Negative Negative [facility] Laboratory - UrinalysisOrder ed By: Terence Garcia on 08-10-2022 Hyaline casts LM Ql (Urine sed) None seen [LPF] 0-8 [facility] Nitrite Test strip Ql (U)Ord ered By: Terence Garcia on 08-10-2022 Nitrite Ql (U) Negative Negative [facility] No Panel InformationOrdered By: Terence Garcia on 08-10-2022 Membranes Rupture (PAMG-1) Negative Negative [facility] Opiates [Presence] in Urine by Screen methodOrdered By: Terence Garcia on 08-10-2022 Opiates Screen Ql (U) Negative Negative [facility] Phencyclidine Screen Ql (U)O rdered By: Terence Garcia on 08-10-2022 Phencyclidine Ql (U) Negative Negative [facility] Comment on above: These are unconfirme d results and should not be used for legal purposes. Drug Cut-Off Concentration: AMPH 1000 ng/mL LESLEY 200 ng/mL NETTIE 200 ng/mL COCM 300 ng/mL OP 300 ng/mL PCP 25 ng/mL Protein Auto test strip (U) [Mass/Vol]Ordered By: Terence Garcia on 08-10-2022 Protein (U) [Mass/Vol] Negative Negative [facility] Specific gravity Auto test s trip (U) [Rel density]Ordered By: Treence Garcia on 08-10-2022 Specific gravity (U) [Rel density] 1.004 1.001-1.030 [facility] Squamous epithelial cells de tection in urine sediment by light microscopyOrdered By: Terence Garcia on 08-10-2022 Epithelial cells.squamous LM Ql (Urine sed) 0-1 [HPF] 0-2 [facility] Urine bacteria detection by automated methodOrdered By: Terence Garcia on 08-10-2022 Bacteria Auto Ql (U) None seen None Seen [facility] Urine clarity by refractomet ry automatedOrdered By: Terence Garcia on 08-10-2022 Clarity Refractometry automated (U) Clear Clear [facility] Urine culture routineOrdered By: Terence Garcia on 08-10-2022 Bacteria identified Cx Nom (U) 2 Days [facility] Urine glucose measurement by automated test strip (mass/volume)Ordered By: Terence Garcia on 08-10-2022 Glucose Auto test strip (U) [Mass/Vol] Normal mg/dL Normal [facility] Urine hemoglobin detection b y automated test stripOrdered By: Terence Garcia on 08-10-2022 Hemoglobin Auto test strip Ql (U) Negative Negative [facility] Urine leukocyte esterase det ection by automated test stripOrdered By: Terence Garcia on 08-10-2022 Leukocyte esterase Auto test strip Ql (U) 4+ Negative [facility] Urobilinogen Auto test strip (U) [Mass/Vol]Ordered By: Terence Garcia on 08-10-2022 Urobilinogen (U) [Mass/Vol] Normal mg/dL Normal [facility] pH Auto test strip (U)Ordere d By: Terence Garcia on 08-10-2022 pH (U) 7.0 [pH] 5.0-9.0 [facility] Cytology Cervical or vaginal smear or scraping studyon 03-12-2022 [facility] [employer] Coding Summary.on 11-28-2021 Coding Summary. [id number] Gh0bWw+PGhlYWQ+PE1FV FGpB80gtOLhvX3XY5lIZ A6JWYYVKCKULE3GIC8tt IQ5WXpdP1McqoAf FktufWPyXT24NXt5MDE5 bSgoZCirvU6vuBAlF5w0 SbIwYT01kR42QEfhZLNk ZsZ8YpWpucprtHQz S4aiVkVcaVOeVuc+PHRh YmxlIHdpZHRoPScxMDAl CxFgwIopNM4xOh0fBKZx LWNvbGxhcHNlOiBj o3kgDJWbAVjnMD8mfIkq P6UsiFR0TDImv8m0Jk46 dHI+OUQpWOI4rObqTFuw i055ByUwl7tuNWT8 wUJeXFxeYVM7B79py0W9 ROCmMNEoBGZ2bWP8yD4b bJejhbuaJ1QcdYWxPoI6 HMC4eWJbjT0kvCfw eoazmS6oNkj+Q39EBN5G AIBJDR7VZvy6I5WlIcwk dHI+AQ00RBKwUV56oRBu tTPai7bdjYp3HqBn YJHpTUG2lSmoXGbae6Zf BIUaK50mxQUgc8I7HYXd cLqofWBlRjUpmNW4kP7l DAjwnycpy0uthvbq Elscw3bhel46fM31L34q IFifWIDyAPV4WHMrITJa lDvlgn4ufK4uZe3+IDxj q2xgq4mzzRx1ZyCw CQQnvnOccDycWCL4t0Jl Sj45W1ObbTpbw1QbEns7 cz29fKJhl7D0uAX5YCcp ITJmmI7oLSypOvF6 RXFrGtOuyR55sZCwKEuf Wt5lnGilxRimRP0oVLEl pthlBQUmpS1iFKCsrKWp bFfiHO6gNRQdjmuj r295DxYaXDG8OQGjqPFp Y8LmvK3dEtUnWHQvROMx U1IvfIHzQFrzF785GYac HgS0KYPegtWuA9Dp ODCcbQkePvZ4r6B9Hl2A z8XvrkoyQPE7CFoeSTHf OzY8PpPiEyV1C0BzGrk4 EDQdjWawMZ7gS4Cd FUVbbmzomtmktES0MNYk ITYbhM43qKZdPIfcHt5s g9E0q780MMZlFJIrhL06 Fx1slPoxQGDmlCHL cH5rnsnvh4fewddaSsSx YIYoKFv7SSe4IDDlqGzw YfSgFLW3IeK0JQW9bVOb iN4gwVlytfafqF4u Oyc+C36ngW3jTOD9OIP0 sqbtRBJrhpGhIH12DK47 X6TdGamvrLVrsCY+PGRp wlGzxTbwCM8yLlJb o5noq1GtIZplR2QtIJDv BYywNqd3VPKvVML3gPH0 cJ4eICKcPUvtf3I0vHW3 W7MkoxOgtw4kj6na JWGuSYckW94xfUBzp4B1 OOJnbZF2FFEblLxnUmCg cG98Irf+PBXzcYecy7Mg Ifevr8tiy1yejRg4 IjMwJSIgdmFsaWduPSJ0 y0XaBc60A01rDXyaKLSn YZYzBAAkVLVlpHmhyy3y pS7rPw1+PGNvbCB3 nQI5aI7wLVZwQoV0CDxd K243FpImrUCzZlexr9zn v8lfgHq7HdFwXREupaIu eLntHHN4h7DwTq13 J76fQRweWPCfHMXrHBUy QKAiuJannm0urV0bCs4+ XS4iy4marr78bO92tWS+ DJUoFBL4pYiwAUdq ENKbmV5aHSdzKgE9YISc QuGhjO51fMOgGUusEe8r nDqysHexQG0lWASztrnp c583XaPja8avCPOb aXCpDDwrRWH4V34kt9F7 OBZnBAViNIJ5hAG4lY1f bGlnbjogbGVmdDsgdmVy dEhcJGcdIHcnH418 IHRvcDsnPlBhdGllbnQg FsOgSJx5F3LgOaa1WNAl qNpkXZ8wiRPaOQmgKp9z cYjvoPjnOS3gEWBp kfcbe242KoNur1rnVCUx yUAhVInzKUZ5U58om0J5 QLOiCQIyOEI1uCU5mS4m bGlnbjogbGVmdDsg arYwePpzVDrdAMslM122 IHRvcDsnPkJpcnRoIERh xVL0KH85HC48xAFtn7N5 lYE4C7MpIGRworqq dzbjjIW5PQEqJSElhX11 Id1dtAaaTu4gDNUwNWN3 TNWwhUIyU7NlgM2hOeSz HIAxBVKvZ4HfrOIu PEupZ196GGpxRqA1HJZw xpUuW4FlEAIbbUmxVvC2 s7W4Lg2UM5E9KD20WR66 uRVsx7N3hNU7F9Tt HDLdyndijxbefPV3CZCj RTPgeW87Hz5olWvbWt5s MAKgWYP6LYMrlQTuL1Aq pX4eTwLbGCElGTWx L7BpyRPxFEevA620SBao GfF9NXFqbeIiP0UnMSJx iLojXyL8e7V2Hy4RSVo3 LV06XU64eHAxb4A8 fND7Z4EoSFFghmkqqfwu qAW3HRRyIMQejY07Dn4f tIyfZv2fKOIaQOR2PUSr pBCbI2PyhT7zZjTu BAObSIEmC6HmbGCfJDew I507XXrgKxS4XTMyliJb Q8TvVZHdpWkqVcM9l3Y1 Ni8CGQIbRZ06JVE5 lJG3KO24CK48L9CzKpzp dGFibGU+PHRhYmxlIHdp ZHRoPScxMDAlJyBzdHls MC9dMw0eLMNdHUAq nTzftHZbQtUno5clWGGx RZqqDQ3mpIogO2YxoQJ8 PLNvp7o4Ek86E30cT9Iu dXA+MREwbKU5aNL6 gQ1cPfUmGbL0UFkbO448 CaWmzBCaFceod1pcd4cn kGi1TcS1ILFrxqWseHyq KMK9j7FdRh34J27u IHdpZHRoPSIxNSUiIHZh fWnpms3gwW9yRk7+PGNv lMZ2nCC3uG9sHfDmMoL2 VIdjM376EeLggFJi Zgiiz5flx9gbtEd6FiHg MQFylmQnwEueKDT8q2Xr Bx87O1FzpWfmj5UzSsf3 tw72dVEri5O5fWP3 D3LhGOTcuiegbOHtxWie CN7sTEGoyekhPLFeoJ2c NDHjF4v7HgSkYjQ1IFbi A8PpkfZ1YMZitBTu OCdmVLW6P11hr6X9YDKt RVMvLHJ9vYF3qR8jbMvc bjogbGVmdDsgdmVydGlj HLupTEtkD915XZIh vAsmWYRvxR0nZJThvQTu yNtdTV8vFXFpvlxdTeMH AJeuGDXNUN5HQDV9N7Xt Brs8OTPaxUkbCL4h wBSjXKzvVz8sdKkavKwj ZN9mDCLhflzvDZZtnQ9u EWXkdUFfuXrkBG3lFEFx xswsu258WaCxPDO0 XDHajUZnZ0SrwF2lVeAf TDGlVCTgA1GumVEmPPbv I336ADxaDkH3SZCkhrNk V5PcLHRveWwxDvQ2 v3P5Dq7rTD0hMC7yMRUy AX69RK25lDCdy3G0qHV8 Y9NoTYYdnqphbcnmaSN9 NCXfEOJjoG20xXNs QKheQw4xk1I1c005PQCs YNLijO77Cd1ilTuvQBTs dIXLmO6xtkrhy6kbwipp MdSzEULsNDd1HAv2 WRSoiUvsUpVoPCP9GxJ8 HNR3xYRhdW8ehEkaavdx fU7jMhu+MjAgWWVhcnM8 N7FtTnw1JXSbjGuf XA3raRVnCXqeJs1saEbo zXcxTT2vMBRglnzlGVAf hR6bGMEfpHMdkJxmWJ1t NTIknjwrr721ZvGf BCO4SACpvKWcF5IrrB0j IzHsLRZgQGZlA1UxdUIx DCwhU804UKcmKeS0AUHj mnElE1YrCSMdvOzm OlA9j6V7Lt6WIQ4rkFJ4 V4RvEjh4MUKesPwqFI8g aOWkMAbcAo2udHxgmDax DV0jZJHqrtynARHo uE7xDMLnwCOrrBzvHF8j CNYsksaqo866ZgMcNCD5 RVZfxBQvW7YkgU2zHuWc QZYtZVZgG8DvxNJn ANcuF008RUeiTzI5TLUn qdFqL3AwBHVgfUljOeV0 q2U3Xq9WbVDhP2VhS4o1 A8ZyDfwmtLR+PC90 YONqTU95yUDqoVSlb6an hGg8CgXyHOMoDCX6lDkd OJxeq6LaFERtP09piGHj w4Z3AWOgoNtmcKEm JnTddEW7pB2rHQqkfdti n7txynsuLwvrn3lrzx05 sY34K95sDMgbKATsOQMf ARUbLDYdrDavkl1b oM4kLo9+ZEWpsSX8wVT5 cP2nFzToHiA1ZWybP178 JjGjjBZxYrvak5krp8jf pXu7DuQoDIZjgcIo vRypWOX2t1ReOl77A07q IHdpZHRoPSIyMCUiIHZh xVjtch6fkE8tWi1+PC9j e0rrnc91eU88qFC+ MIQjEDG1qFahHUzmRGEy dL1nMYshJoC4SSUxOdWa eV58eCHbKUinHp1phOwh yKepGX0aTWAcejfx b637GiBgv3agHBPboPWb HRhtMVN9A49jy4R4ILAn IPFfZQJ2nCG9cD7wxEpr bjogbGVmdDsgdmVy lEhkBQvuPZirI172LSRn jDgzKwQbjQHnW3peafGX RZ0lMafptGB+PHRkIHN0 xMybIMzoLPVaoA9p XMRqD3m0NfFvAwH9QGdu K0YwaaE4SBNgjXDvMQXu vLFJiV0sbpklo6gqvjyt QfTdWMMsCEj1THy4 MPCyxRvfAjTuALF4WkX5 LZX7eMQtjD3cyCosgdum uC4fZfm+RklOOjwvdGQ+ KLRoAUY8rNzjZHkq QOBbdK0yDFXxW0i4HkGf GiO9WNvxG8EztsO5UVGh hBZrXHFwjRRSoI1tsovp k3vdlaudGaHtUCOh AAd6ABi8TDNunDnvPfBl DFF0AsQ8FEP5iHArrF0b cMecfvgwsN9kOmf+TVJO OjwvdGQ+PHRkIHN0 uWlaQYznHHJzlJ0iQFJz W3y6LlJsDtX9STgyR3Xr cmB6LBEvsIWfTVSvjTQY aS8hmkvrf3glqwxd PxAbBEQjEIc0AQn4AABx xHbdTsVeHHF0PjJ8SOP9 nGDukU1qhIufajwroC2c Oyc+LPJ7ROL7TT40 ME36P9FrWjeslYSkrFB+ PHRhYmxlIHdpZHRoPScx VTCdTdRhfVjnTA7fJs9d ZGVyLWNvbGxhcHNl OiBj (more content not included)... [facility] Discharge Instructionson Discharge Instructions [id number]#1.00CD:127 [facility] ED Clinical Summaryon 2021 ED Clinical Summary [place] [address] ED Clinical Summary Person Information Name: SHIV EVANGELISTA Gauri Carisa/[facility] Age: 21 Years : 2000 Sex: Female Language: Italian PCP: OK TYSON DO Marital Status: Single [...] 11/25/2021 23:47:16 11/25/2021 23:47:16 11/25/2021 23:47:16 ADDRESS: [address] [place] [id number] PHYS DOC NOTES: MEDICAL INFORMATION: Prescriptions Given: Medications to Continue with No Changes Other Medications hydrOXYzine (Vistaril 25 mg Cap) 1-2 cap(s) By Mouth 4 times a day as needed as needed for anxiety. Refills: 0. PATIENT EDUCATION INFORMATION: Instructions: Migraine Headache Follow up: With: Address: When: [address], [address] [address] Business (1) In 3 days DIAGNOSIS: Migraine headache [facility] ED Note-Physicianon 11-27-19 ED Note-Physician Basic Information Time Seen: aRyray Aquino DO 11/25/2021 21:35 Chief Complaint pt [...] 5 mg/mL Inj, 10 mg, IV Push [id number] [F], 1000 mL, IV Disposition Plan Discharge Prescription List Prescriptions No active prescription medications Follow-up With When Contact Information OK TYSON In [address], [facility] [address] [place] [address] [facility] (1) Additional Instructions: Patient Education Migraine Headache [...] Diagnostic Results No qualifying data available. [facility] Comment on above: Result Comment: Kiet brenton Signed By: Rayray Aquino DO\.br\Date and Time [...] these instructions at home: Medicines ? Take lasz-tts-syqjrim and prescription medicines only as told by your health care provider. ? Ask your health care provider if the medicine prescribed to you: ? Requires you to avoid driving or using heavy machinery. ? Can cause constipation. You may need to take these actions to prevent or treat constipation: ? Drink enough fluid to keep your urine pale yellow. ? Take koxn-pow-emmxccz or prescription medicines. ? Eat foods that [...] different or (more content not included)... [facility] ED Patient Summaryon 022 ED Patient Summary [address] [address] Patient Discharge Instructions Person Information Name: SHIV EVANGELISTA Age: 21 Years Arrival Date: 11/25/2021 18:57:45 Discharge Diagnosis: Migraine headache Primary Care Physician: OK TYSON DO Provider Information Primary Provider: Rayray Aquino DO Advanced [employer] De Partie:None The exam and treatment you received in the Emergency Department were for an urgent problem and are not intended as complete care. It is important that you follow up with a doctor, nurse practitioner, or physician?s appeals assistant for ongoing care. If your symptoms [...] Instructions: With: Address: When: [address], [address] [address] Business (1) In 3 days In the event that this physician does not participate in your insurance network, please consult with your insurance company to find a nearby participating provider. Patient Education Materials: Migraine Headache A MESSAGE TO ALL PATIENTS REGARDING OPIOIDS PRESCRIPTION OPIOIDS: WHAT YOU NEED TO KNOW Prescription opioids can be used to help relieve mgwjvnmf-ns-tgnvgo pain and are often prescribed following a [...] be struggling with addiction, tell your health certified caregiver and ask for guidance or call [facility]?S National Helpline at 0-639-884-[employer]. [employer] Source: Department of Health and [facility] (more content not included)... [facility] Progress Note-Nurseon 2021 Progress Note-Nurse Pt. brought back to ed bed 13 [facility] Progress Note-Nurse Pt. states her headache is completely gone and she is ready to go home. [facility] Consent for Treatmenton 11-10 Consent for Treatment [id number] #1.00CD:127 [facility] Urine culture routineOrdered By: Ok Tyson on 10-11-2021 Bacteria identified Cx Nom (U) Klebsiella pneumoniae [facility] Automated epithelial cells c ount in urine sediment (number/area)Ordered By: Ok Tyson on 10-09-2021 Epithelial cells Auto (Urine sed) [#/Area] 20-49 [HPF] 0-2 [facility] Automated erythrocytes count in urine sediment (number/area)Ordered By: Ok Tyson on 10-09-2021 RBC Auto (Urine sed) [#/Area] None seen [HPF] 0-4 [facility] Automated leukocytes count i n urine sediment (number/area)Ordered By: Ok Tyson on 10-09-2021 WBC Auto (Urine sed) [#/Area] 1-2 [HPF] 0-4 [facility] Automated urine hyaline cast s count (number/volume)Ordered By: Ok Tyson on 10-09-2021 Hyaline casts Auto (U) [#/Vol] None seen [LPF] 0-1 [facility] Bilirubin Test strip Ql (U)O rdered By: Ok Tyson on 10-09-2021 Bilirubin Ql (U) Negative Negative [facility] Color Auto (U)Ordered By: Anna Tyson on 10-09-2021 Color (U) Yellow Yellow [facility] Ketones Auto test strip (U) [Mass/Vol]Ordered By: Ok Tyson on 10-09-2021 Ketones (U) [Mass/Vol] Negative Negative [facility] Nitrite Test strip Ql (U)Ord ered By: Ok Tyson on 10-09-2021 Nitrite Ql (U) Negative Negative [facility] Protein Auto test strip (U) [Mass/Vol]Ordered By: Ok Tyson on 10-09-2021 Protein (U) [Mass/Vol] Negative Negative [facility] Specific gravity Auto test s trip (U) [Rel density]Ordered By: Ok Tyson on 10-09-2021 Specific gravity (U) [Rel density] 1.005 1.001-1.030 [facility] Urine bacteria detection by automated methodOrdered By: Ok Tyson on 10-09-2021 Bacteria Auto Ql (U) 3+ None Seen [facility] Urine clarity by refractomet ry automatedOrdered By: Ok Tyson on 10-09-2021 Clarity Refractometry automated (U) Clear Clear [facility] Urine glucose measurement by automated test strip (mass/volume)Ordered By: Ok Tyson on 10-09-2021 Glucose Auto test strip (U) [Mass/Vol] Normal mg/dL Normal [facility] Urine hemoglobin detection b y automated test stripOrdered By: Ok Tyson on 10-09-2021 Hemoglobin Auto test strip Ql (U) Negative Negative [facility] Urine leukocyte esterase det ection by automated test stripOrdered By: Ok Tyson on 10-09-2021 Leukocyte esterase Auto test strip Ql (U) 2+ Negative [facility] Urobilinogen Auto test strip (U) [Mass/Vol]Ordered By: Ok Tyson on 10-09-2021 Urobilinogen (U) [Mass/Vol] Normal mg/dL Normal [facility] pH Auto test strip (U)Ordere d By: Ok Tyson on 10-09-2021 pH (U) 7.0 [pH] 5.0-9.0 [facility] Albumin [Mass/volume] in Ser um or PlasmaOrdered By: Ok Tyson on 09-13-2021 Albumin [Mass/Vol] 4.5 g/dL 3.2-5.5 [facility] Creatinine and Glomerular fi ltration rate.predicted panel (S/P/Bld)Ordered By: Ok Tyson on 09-13-2021 Creatinine [Mass/Vol] 0.71 mg/dL 0.44-1.03 [facility] Estimated glomerular filtrat ion rate (GFR) non- AmericanOrdered By: Ok Tyson on 09-13-2021 GFR/1.73 sq M.predicted among non-blacks MDRD (S/P/Bld) [Vol rate/Area] > 60 mL/Min [facility] Globulin Calc (S) [Mass/Vol] Ordered By: Ok Tyson on 09-13-2021 Globulin (S) [Mass/Vol] 2.5 g/dL [facility] No Panel InformationOrdered By: Ok Tyson on 09-13-2021 Estimated GFR () > 60 mL/Min [facility] Comment on above: GFR estimated refere nce range: According to KDOQI guidelines, <60 ml/min/1.73m2 is sufficient to diagnose a patient with chronic kidney disease. Pharmacy Creatinine Clearance (Chem N/A [facility] Protein [Mass/volume] in Ser um or PlasmaOrdered By: Ok Tsyon on 09-13-2021 Protein [Mass/Vol] 7.0 g/dL 6.1-7.9 [facility] Serum or plasma alanine schmid otransferase measurement without P-5'-P (enzymatic activiOrdered By: Ok Tyson on 09-13-2021 ALT No additional P-5'-P [Catalytic activity/Vol] 18 U/L 10-60 [facility] Serum or plasma albumin/glob ulin mass ratioOrdered By: Ok Tyson on 09-13-2021 Albumin/Globulin [Mass ratio] 1.8 {ratio} [facility] Serum or plasma alkaline pascale sphatase measurement (enzymatic activity/volume)Ordered By: Ok Tyson on 09-13-2021 ALP [Catalytic activity/Vol] 51 U/L 32-92 [facility] Serum or plasma aspartate am inotransferase measurement (enzymatic activity/volume)Ordered By: Ok Tyson on 09-13-2021 AST [Catalytic activity/Vol] 23 U/L 10-42 [facility] Serum or plasma calcium acosta urement (mass/volume)Ordered By: Ok Tyson on 09-13-2021 Calcium [Mass/Vol] 9.2 mg/dL 8.2-10.2 [facility] Serum or plasma chloride danis surement (moles/volume)Ordered By: Ok Tyson on 09-13-2021 Chloride [Moles/Vol] 104 mmol/L 95-114 [facility] Serum or plasma glucose acosta urement (mass/volume)Ordered By: Ok Tyson on 09-13-2021 Glucose [Mass/Vol] 82 mg/dL 70-100 [facility] Comment on above: ADA recommended refe rence range Random Glucose Reference Range is dependent on time and content of last meal. Glucose of more than 200 mg/dL in a nonstressed, ambulatory subject supports the diagnosis of Diabetes Mellitus. Serum or plasma potassium me asurement (moles/volume)Ordered By: Ok Tyson on 09-13-2021 Potassium [Moles/Vol] 3.4 mmol/L 3.5-5.1 [facility] Serum or plasma sodium measu rement (moles/volume)Ordered By: Ok Tyson on 09-13-2021 Sodium [Moles/Vol] 139 mmol/L 136-146 [facility] Serum or plasma total biliru bin measurement (mass/volume)Ordered By: Ok Tyson on 09-13-2021 Bilirubin [Mass/Vol] 0.4 mg/dL 0.3-1.2 [facility] Serum or plasma total carbon dioxide measurement (moles/volume)Ordered By: Ok Tyson on 09-13-2021 CO2 [Moles/Vol] 28.3 mmol/L 22.0-30.0 [facility] Serum or plasma urea nitroge n measurement (mass/volume)Ordered By: Ok Tyson on 09-13-2021 Urea nitrogen [Mass/Vol] 8 mg/dL 11-02 [facility] Q - Strep pneumo Ab 23 serot ypeson 06-15-2021 SEROTYPE 1 (1) 91.7 Normal [facility] Specialist Comment on above: Order Comment: [facility] performed at: [facility],, [address] [place] [address], , Head Miller: Angela Feng MD,PhD,MANOHAR [facility] Date/Time: [facility] Results Received Date/Time: [facility] Reported Date/Time: FASTING: NO Performed By: #### 1 [id number] #### [facility] Default [address] [place] [address] SEROTYPE 12 (12F) 3.7 Normal [facility] Comment on above: Order Comment: [facility] performed at: [facility], [facility],, [facility] [place], , Head Miller: Angela Feng MD,PhD,MANOHAR [facility] Date/Time: [facility] Results Received Date/Time: [facility] Reported Date/Time: FASTING: NO Performed By: #### 1 [id number] #### [facility] Default [address] [place] [address] SEROTYPE 14 (14) 163.4 Normal [facility] Comment on above: Order Comment: [facility] performed at: [facility], [facility],, [address] [place] [address], , Head Miller: Angela Feng MD,PhD,MANOHAR [facility] Date/Time: [facility] Results Received Date/Time: [facility] Reported Date/Time: FASTING: NO Performed By: #### 1 [id number] #### [facility] Default [address] [place] [address] SEROTYPE 17 (17F) 4.6 [facility] Comment on above: Order Comment: [facility] performed at: [facility], [facility],, [address] [place] [address], , Head Miller: Angela Feng MD,PhD,MANOHAR [facility] Date/Time: [facility] Results Received Date/Time: [facility] Reported Date/Time: FASTING: NO Performed By: #### 1 [id number] #### [facility] [address] [place] [address] SEROTYPE 19 (19F) 18.2 [facility] Comment on above: Order Comment: [facility] performed at: [facility], [facility],, [address] [place] [address], , Head Miller: Angela Feng MD,PhD,MANOHAR [facility] Date/Time: [facility] Results Received Date/Time: [facility] Reported Date/Time: FASTING: NO Performed By: #### 1 [id number] #### [facility] [address] [place] [address] SEROTYPE 2 (2) 4.7 Normal [facility] Comment on above: Order Comment: [facility] performed at: [facility], [facility],, [address] [place] [address], , Head Miller: Angela Feng MD,PhD,MANOHAR [facility] Date/Time: [facility] Results Received Date/Time: [facility] Reported Date/Time: FASTING: NO Performed By: #### 1 [id number] #### [facility] Default [address] [place] [address] SEROTYPE 20 (20) 3.[address] [facility] Comment on above: Order Comment: [facility] performed at: [facility], [facility],, [address] [place] [address], , Head Miller: Angela Feng MD,PhD,MANOHAR [facility] Date/Time: [facility] Results Received Date/Time: [facility] Reported Date/Time: FASTING: NO Performed By: #### 1 [id number] #### [facility] Default [address] [place] [address] SEROTYPE 22 (22F) 4.0 [facility] Comment on above: Order Comment: [facility] performed at: , [facility],, [address] [place] [address], , Head Miller: Angela Feng MD,PhD,MANOHAR [facility] Date/Time: [facility] Results Received Date/Time: [facility] Reported Date/Time: FASTING: NO Performed By: #### 1 [id number] #### [facility] Default [address] [place] [address] SEROTYPE 23 (23F) 5.7 [facility] Comment on above: Order Comment: [facility] performed at: [facility],, [address] [place] [address], , Head Miller: Angela Feng MD,PhD,MANOHAR [facility] Date/Time: [facility] Results Received Date/Time: [facility] Reported Date/Time: FASTING: NO Performed By: #### 1 [id number] #### [facility] Default [address] [place] [address] SEROTYPE 26 (6B) 7.1 Normal [facility] Comment on above: Order Comment: [facility] performed at: , [facility],, [address] [place] [address], , Head Miller: Angela Feng MD,PhD,MANOHAR [facility] Date/Time: [facility] Results Received Date/Time: [facility] Reported Date/Time: FASTING: NO Performed By: #### 1 [id number] #### [facility] Default [address] [place] [address] SEROTYPE 3 (3) 5.2 Normal [facility] Comment on above: Order Comment: [facility] performed at: , [facility],, [address] [place] [address], , Head Miller: Angela Feng MD,PhD,MANOHAR [facility] Date/Time: [facility] Results Received Date/Time: [facility] Reported Date/Time: FASTING: NO Performed By: #### 1 [id number] #### [facility] Default [address] [place] [address] SEROTYPE 34 (10A) 20.3 Normal [facility] Comment on above: Order Comment: [facility] performed at: , [facility],, [address] [place] [address], , Head Miller: Angela Feng MD,PhD,MANOHAR [facility] Date/Time: [facility] Results Received Date/Time: [facility] Reported Date/Time: FASTING: NO Performed By: #### 1 [id number] #### [facility] Default [address] [place] [address] SEROTYPE 4 (4) 2.2 Normal [facility] Comment on above: Order Comment: [facility] performed at: [facility], [facility],, [facility] [place], , Head Miller: Angela Feng MD,PhD,MANOHAR [facility] Date/Time: [facility] Results Received Date/Time: [facility] Reported Date/Time: FASTING: NO Performed By: #### 1 [id number] #### [facility] Default [address] [place] [address] SEROTYPE 43 (11A) 10.7 Normal [facility] Comment on above: Order Comment: [facility] performed at: [facility], [facility],, [address] [place], [place] [address] [place], , Head Miller: Angela Feng MD,PhD,MANOHAR [facility] Date/Time: [facility] Results Received Date/Time: [facility] Reported Date/Time: FASTING: NO Performed By: #### 1 [id number] #### [facility] Default [address] [place] [address] SEROTYPE 5 (5) 2.5 Normal [facility] Specialist Comment on above: Order Comment: [facility] performed at: [facility], [facility],, [address] [place] [address], , Head Miller: Angela Feng MD,PhD,MANOHAR [facility] Date/Time: [facility] Results Received Date/Time: [facility] Reported Date/Time: FASTING: NO Performed By: #### 1 [id number] #### [facility] Default [address] [place] [address] SEROTYPE 51 (7F) 4.3 Normal [facility] Rand Cementer Comment on above: Order Comment: [facility] performed at: [facility], [facility],, [address] [place] [address], , Head Miller: Angela Feng MD,PhD,MANOHAR [facility] Date/Time: [facility] Results Received Date/Time: [facility] Reported Date/Time: FASTING: NO Performed By: #### 1 [id number] #### [facility] Default [address] [place] [address] SEROTYPE 54 (15B) 9.3 [facility] Comment on above: Order Comment: [facility] performed at: [facility], [facility],, [facility] [place], , Head Miller: Anegla Feng MD,PhD,MANOHAR [facility] Date/Time: [facility] Results Received Date/Time: [facility] Reported Date/Time: FASTING: NO Performed By: #### 1 [id number] #### [facility] Default [address] [place] [address] SEROTYPE 56 (18C) 15.2 [facility] Comment on above: Order Comment: [facility] performed at: [facility], [facility],, [facility] [place], , Head Miller: Angela Feng MD,PhD,MANOHAR [facility] Date/Time: [facility] Results Received Date/Time: [facility] Reported Date/Time: FASTING: NO Performed By: #### 1 [id number] #### [facility] Default [address] [place] [address] SEROTYPE 57 (19A) 1.3 [facility] Comment on above: Order Comment: [facility] performed at: [facility], [facility],, [address], [place], , Head Miller: Angela Feng MD,PhD,MANOHAR [facility] Date/Time: [facility] Results Received Date/Time: [facility] Reported Date/Time: FASTING: NO Performed By: #### 1 [id number] #### [facility] Default [address] [place] [address] SEROTYPE 68 (9V) 2.[address] [facility] Comment on above: Order Comment: [facility] performed at: [facility],, [address] [place] [address], , Head Miller: Angela Feng MD,PhD,MANOHAR [facility] Date/Time: [facility] Results Received Date/Time: [facility] Reported Date/Time: FASTING: NO Performed By: #### 1 [id number] #### [facility] Default [address] [place] [address] SEROTYPE 70 (33F) 2.5 Normal [facility] Comment on above: Order Comment: [facility] performed at: [facility],, [address] [place] [address], , Head Miller: Angela Feng MD,PhD,MANOHAR [facility] Date/Time: [facility] [...] serotype-specific titers may have less robust responses. [facility] uses a multi-analyte immunodetection (MAID) method. The method employs the [employer] flow cytometric system which measures multiple analytes [...] analytical performance characteristics have been determined by [facility]. It has not been cleared or approved by FDA. This assay has been validated pursuant to the CLIA regulations and used for clinical purposes. For additional information, please refer to http://education.QuantiaMD/faq/CUP078 (This link is being provided for informational/ educational purposes only.) Performed By: #### 1 [id number] #### [facility] Default [address] [place] [address] SEROTYPE 8 (8) 9.8 Normal [facility] Rand Cementer Comment on above: Order Comment: [facility] performed at: [facility],, [address] [place], [place], , Head Miller: Angela Feng MD,PhD,MANOHAR Quest Collection Date/Time: [id number] Quest Results Received Date/Time: [facility] Reported Date/Time: FASTING: NO Performed By: #### 1 [id number] #### [facility] Default [address] [place] [address] SEROTYPE 9 (9N) 2.8 Normal [facility] Rand Cementer Comment on above: Order Comment: Quest Testing performed at: [facility],, [address] [place], [address], Head Miller: Angela Feng MD,PhD,MANOHAR Quest Collection Date/Time: [facility] Results Received Date/Time: [facility] Reported Date/Time: FASTING: NO Performed By: #### 1 [id number] #### [facility] Default [address] [place] [address] Office Visit (Pediatric Neur ology)on 05-30-2021 Follow-up [...] updates. My nurse is Yolanda Calvillo at [phone]. 8. 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 She will be at [employer]. She has also been diagnosed [...] Vitals V (more content not included)... Normal [facility] CHEMISTRYOrdered By: SYSTEM SYSTEM on 05-17-2021 Anion [...] rate/Area] mL/min/1.73 m2 Normal >=59mL/min/1 .73 m2 [facility] Chem S GFR/1.73 sq M.predicted among non-blacks MDRD (S/P/Bld) [Vol rate/Area] mL/min/1.73 m2 Normal >=59mL/min/1 .73 m2 [facility] Chem S Glucose [Mass/Vol] 152 mg/dL Normal 55 - 199 mg/dL [facility] Potassium [Moles/Vol] 3.3 mmol/L Low 3.5 - 5.3 mmol/L [facility] Sodium [Moles/Vol] 138 mmol/L Normal 135 - 145 mmol/L [facility] Urea nitrogen [Mass/Vol] 9 mg/dL Normal 5 - 21 mg/dL [facility] Urea nitrogen/Creatinine [Mass ratio] 11 mg/mg Normal 10 - 20 [facility] HEMATOLOGYOrdered By: SYSTEM SYSTEM on 05-17-2021 [...] 05-17-2021 HCG.beta subunit (U) [Moles/Vol] Negative Normal [facility] URINALYSISOrdered By: Genevieve collins on [...] PM) Normal Negative [facility] UA Auto SS [place].plasma/Lithiu m.RBC (Bld) [Mass ratio] >75 /HPF Invalid [...] [facility] UA Auto SS Urobilinogen Qn (U) 0.7919802 {Deny'U}/dL Normal 0.0 - 1.0 EU/dL [facility] UA Auto SS WBC Auto Ql (U) Negative (05/17/21 9:31 PM) Normal Negative [facility] UA Auto SS WBC LM.HPF (Urine sed) [#/Area] 0-5 /HPF Normal 0-5/HPF [facility] UA Auto SS Q - Diptheria/Tetanus Abon 0 04-13-2021 DIPHTHERIA ANTITOXOID 0.59 IU/mL Normal [facility] [place] [facility] Cementer Comment on above: Order Comment: Quest Testing performed at: [facility], [facility], [address], [place], [place], , Head Miller: Gurmeet Rabago M.D.,PhD Quest Collection Date/Time: Quest [...] analytical performance characteristics have been determined by [facility] [place]. It has not been cleared or approved by the U.S. Food and Drug Administration. This assay has been validated pursuant to the CLIA regulations and is used for clinical purposes. Performed By: #### 1 6963X, 07161W, 30883M, 67207B, 32728H, 90108F, 55401 #### [facility] Default [address] [place] [id number] TETANUS ANTITOXOID 0.71 IU/mL Normal [place] [place] Rand Cementer Comment on above: Order Comment: Quest Testing performed at: [facility], [facility], [address], [place], [place], , Head Miller: Gurmeet Rabago M.D.,PhD Quest Collection Date/Time: Quest [...] analytical performance characteristics have been determined by [employer] [place]. It has not been cleared or approved by the U.S. Food and Drug Administration. This assay has been validated pursuant to the CLIA regulations and is used for clinical purposes. Performed By: #### 1 6963X, 33696N, 76134J, 04854H, 34038P, 98224C, 11299 #### [facility] Default [address] [place] [address] Q - HIV AB, HIV 1/2, EIAon 0 04-13-2021 HIV AG/AB, 4TH GEN Non-Reactive Normal NON-REACTIVE No rthern [facility] Comment on above: Order Comment: Quest Testing performed at: [email or web address], [facility], [address], [address] [place] [address], [address], Head Miller: David Mancilla MD Quest Collection Date/Time: Quest [...] purpose. For additional information please refer to http://education.QuantiaMD/faq/YNX971 (This link is being provided for informational/ educational purposes only.) The performance of this assay has not been clinically validated in patients less than 2 years old. Performed By: #### 1 6963X, 16359K, 66338I, 33391P, 72531P, 78437X, 68311 #### [facility] Default [address] [place] [address] Q - IGA,SERUMon 04-13-2021 IMMUNOGLOBULIN A 58 mg/dL Normal 47-310 [facility] Comment on above: Order Comment: Quest Testing performed at: [email or web address], [facility], [address], [address] [place] [address], [address], Head Miller: David Mancilla MD Quest Collection Date/Time: Quest Results Received Date/Time: [facility] Reported Date/Time: Performed By: #### 1 6963X, 60532X, 72297F, 28187E, 74196W, 09434C, 50951 #### [facility] Default [address] [place] [address] Q - IGE,SERUMon 04-13-2021 IMMUNOGLOBULIN E 7 kU/L Normal [facility] Specialist Comment on above: Order Comment: Quest Testing performed at: [email or web address], [facility], [address], [address] [place] [address], [address] [place] [address], Head Miller: David Mancilla MD Quest Collection Date/Time: [facility] Results Received Date/Time: [facility] Reported Date/Time: Performed By: #### 1 6963X, 42678S, 97501I, 10736N, 92587O, 82104Q, 85755 #### [facility] Default [address] [place] [address] Q - IGG,SERUMon 04-13-2021 IMMUNOGLOBULIN G 912 mg/dL Normal 600-1640 [facility] Rand Cementer Comment on above: Order Comment: Quest Testing performed at: [employer] [facility], [address] [place] [address], [address] [place] [address], Head Miller: David Mancilla MD Quest Collection Date/Time: [facility] Results Received Date/Time: [facility] Reported Date/Time: Performed By: #### 1 6963X, 73731J, 02083U, 53645M, 95174P, 08855M, 70507 #### [facility] Default [address] [place] [address] Q - IGM,SERUMon 04-13-2021 IMMUNOGLOBULIN M 73 mg/dL Normal 50-300 [facility] Rand Cementer Comment on above: Order Comment: Quest Testing performed at: [email or web address], [facility], [address], [address] [place] [address], [address] [place] [address], Head Miller: David Mancilla MD Quest Collection Date/Time: [facility] Results Received Date/Time: [facility] Reported Date/Time: Performed By: #### 1 6963X, 22611K, 37455X, 90012L, 26653D, 91640Q, 13696 #### [facility] Default [address] [place] [address] Q - Strep pneumo Ab 23 serot ypeson 04-13-2021 SEROTYPE 1 (1) 0.8 Normal [facility] Specialist Comment on above: Order Comment: Quest Testing performed at: [facility],, [address] [place] [address], , Head Miller: Angela Feng MD,PhD,MANOHAR Quest Collection Date/Time: [facility] Results Received Date/Time: [facility] Reported Date/Time: Performed By: #### 1 6963X, 85297T, 69887G, 81306Y, 62536N, 23349Z, 92825 #### [facility] Default [address] [place] [address] SEROTYPE 12 (12F) <0.3 Normal [facility] Comment on above: Order Comment: Quest Testing performed at: [facility],, [address] [place] [address], , Head Miller: Angela Feng MD,PhD,MANOHAR Quest Collection Date/Time: [facility] Results Received Date/Time: [facility] Reported Date/Time: Performed By: #### 1 6963X, 72979C, 35474S, 57146Y, 75930I, 76095D, 02523 #### [facility] Default [address] [place] [address] SEROTYPE 14 (14) 1.[address] [facility] Comment on above: Order Comment: Quest Testing performed at: [facility],, [address] [place], [place], , Head Miller: Angela Feng MD,PhD,MANOHAR Quest Collection Date/Time: [facility] Results Received Date/Time: [facility] Reported Date/Time: Performed By: #### 1 6963X, 91297M, 29819M, 78146F, 71610N, 89519E, 98382 #### [facility] Default [address] [place] [address] SEROTYPE 17 (17F) 1.9 [facility] Comment on above: Order Comment: Quest Testing performed at: [facility], [facility],, [address] [place] [address], , Head Miller: Angela Feng MD,PhD,MANOHAR Quest Collection Date/Time: [facility] Results Received Date/Time: [facility] Reported Date/Time: Performed By: #### 1 6963X, 90143W, 73292S, 88705J, 23151J, 05708V, 70810 #### [facility] Default [address] [place] [address] SEROTYPE 19 (19F) 2.3 [facility] Comment on above: Order Comment: Quest Testing performed at: [facility], [facility],, [address] [place], [place], , Head Miller: Angela Feng MD,PhD,MANOHAR Quest Collection Date/Time: Quest Results Received Date/Time: [facility] Reported Date/Time: Performed By: #### 1 6963X, 30141C, 13214M, 32035L, 13843D, 35595D, 69644 #### [facility] Default [address] [place] [address] SEROTYPE 2 (2) <0.3 Normal [facility] Rand Cementer Comment on above: Order Comment: Quest Testing performed at: [facility], [facility],, [address] [place] [address], , Head Miller: Angela Feng MD,PhD,MANOHAR Quest Collection Date/Time: Quest Results Received Date/Time: [facility] Reported Date/Time: Performed By: #### 1 6963X, 53009X, 30396V, 36479A, 23887C, 88421G, 61092 #### [facility] Default [address] [place] [address] SEROTYPE 20 (20) 1.[address] [facility] Comment on above: Order Comment: Quest Testing performed at: [facility], [facility],, [address] [place] [address], , Head Miller: Angela Feng MD,PhD,MANOHAR Quest Collection Date/Time: Quest Results Received Date/Time: [facility] Reported Date/Time: Performed By: #### 1 6963X, 84326D, 66908Q, 59426B, 13323M, 03920A, 87112 #### [facility] Default [address] [place] [address] SEROTYPE 22 (22F) <0.3 Normal [facility] Comment on above: Order Comment: Quest Testing performed at: [facility], [facility],, [address] [place] [address], , Head Miller: Angela Feng MD,PhD,MANOHAR Quest Collection Date/Time: [facility] Results Received Date/Time: [facility] Reported Date/Time: Performed By: #### 1 6963X, 97618B, 40202J, 97245V, 98220E, 57956O, 02043 #### [facility] Default [address] [place] [address] SEROTYPE 23 (23F) 3.6 Normal [facility] Comment on above: Order Comment: Quest Testing performed at: [facility], [facility],, [address], [place], , Head Miller: Angela Feng MD,PhD,MANOHAR Quest Collection Date/Time: [facility] Results Received Date/Time: [facility] Reported Date/Time: Performed By: #### 1 6963X, 97217P, 23286V, 83916V, 67288D, 22110S, 77184 #### [facility] Default [address] [place] [address] SEROTYPE 26 (6B) 4.5 Normal [facility] Comment on above: Order Comment: Quest Testing performed at: [facility], [facility],, [facility] [address], [place], , Head Miller: Angela Feng MD,PhD,MANOHAR Quest Collection Date/Time: Quest Results Received Date/Time: Quest Reported Date/Time: Performed By: #### 1 6963X, 80599A, 97904K, 77547O, 57463S, 22308O, 19647 #### [facility] Default [address] [place] [address] SEROTYPE 3 (3) 1.7 Normal [facility] Rand Cementer Comment on above: Order Comment: Quest Testing performed at: [facility], [facility],, [address], [place], , Head Miller: Angela Feng MD,PhD,MANOHAR Quest Collection Date/Time: Quest Results Received Date/Time: Quest Reported Date/Time: Performed By: #### 1 6963X, 42793H, 70665S, 48214N, 82704H, 37533O, 66687 #### [facility] Default [address] [place] [address] SEROTYPE 34 (10A) 1.6 Normal [facility] Comment on above: Order Comment: Quest Testing performed at: [facility], [facility],, [address] [place] [address], , Head Miller: Angela Feng MD,PhD,MANOHAR Quest Collection Date/Time: Quest Results Received Date/Time: Quest Reported Date/Time: Performed By: #### 1 6963X, 62391R, 87511O, 36252Q, 88537M, 07741I, 66039 #### [facility] Default [address] [place] [address] SEROTYPE 4 (4) 0.4 Normal [facility] Specialist Comment on above: Order Comment: [facility] Testing performed at: [facility], [facility],, [address] [place] [address], , Head Miller: Angela Feng MD,PhD,MANOHAR Quest Collection Date/Time: Quest Results Received Date/Time: [facility] Reported Date/Time: Performed By: #### 1 6963X, 81079P, 16649C, 46595Q, 36504I, 32730G, 67743 #### [facility] Default [address] [place] [address] SEROTYPE 43 (11A) 0.9 Normal [facility] Rand Cementer Comment on above: Order Comment: Quest Testing performed at: [facility], [facility],, [address] [facility] [place], [place], , Head Miller: Angela Feng MD,PhD,MANOHAR Quest Collection Date/Time: Quest Results Received Date/Time: [facility] Reported Date/Time: Performed By: #### 1 6963X, 44681U, 32468E, 37163W, 16448C, 43971I, 71970 #### [facility] Default [address] [place] [address] SEROTYPE 5 (5) 0.6 Normal [facility] Specialist Comment on above: Order Comment: [facility] Testing performed at: [facility],, [address] [place] [address], , Head Miller: Angela Feng MD,PhD,MANOHAR Quest Collection Date/Time: Quest Results Received Date/Time: [facility] Reported Date/Time: Performed By: #### 1 6963X, 73169H, 06843W, 84569J, 93199Z, 83850O, 41573 #### [facility] Default [address] [place] [address] SEROTYPE 51 (7F) 0.4 [facility] Specialist Comment on above: Order Comment: Quest Testing performed at: [facility],, [address] [place] [address], , Head Miller: Angela Feng MD,PhD,MANOHAR Quest Collection Date/Time: Quest Results Received Date/Time: [facility] Reported Date/Time: Performed By: #### 1 6963X, 31740F, 96828E, 83526P, 57456M, 84335A, 11222 #### [facility] Default [address] [place] [address] SEROTYPE 54 (15B) <0.3 Normal [facility] Rand Cementer Comment on above: Order Comment: Quest Testing performed at: [facility], [facility],, [address], [place], , Head Miller: Angela Feng MD,PhD,MANOHAR Quest Collection Date/Time: Quest Results Received Date/Time: [facility] Reported Date/Time: Performed By: #### 1 6963X, 59550C, 41150W, 52318Y, 48217V, 17209R, 31582 #### [facility] Default [address] [place] [address] SEROTYPE 56 (18C) 1.1 [facility] Comment on above: Order Comment: Quest Testing performed at: [facility], [facility],, [address], [place], , Head Miller: Angela Feng MD,PhD,MANOHAR Quest Collection Date/Time: Quest Results Received Date/Time: [facility] Reported Date/Time: Performed By: #### 1 6963X, 64320M, 48965G, 81116W, 92363Q, 12330F, 67731 #### [facility] Default [address] [place] [address] SEROTYPE 57 (19A) 0.4 [facility] Comment on above: Order Comment: Quest Testing performed at: [facility], [facility],, [address], [place], [place], , Head Miller: Angela Feng MD,PhD,MANOHAR Quest Collection Date/Time: Quest Results Received Date/Time: [facility] Reported Date/Time: Performed By: #### 1 6963X, 95711Z, 99562F, 48438K, 45587Q, 40883N, 79038 #### [facility] Default [address] [place] [address] SEROTYPE 68 (9V) 0.5 Normal [facility] Comment on above: Order Comment: Quest Testing performed at: [facility],, [address] [place], [place], , Head Miller: Angela Feng MD,PhD,MANOHAR Quest Collection Date/Time: [id number] Quest Results Received Date/Time: [facility] Reported Date/Time: Performed By: #### 1 6963X, 06873L, 32797J, 21929Z, 97473Q, 70106P, 36994 #### [facility] Default [address] [place] [address] SEROTYPE 70 (33F) 0.3 Normal [facility] Comment on above: Order Comment: Quest Testing performed at: [facility],, [address] [place], [place], , Head Miller: Angela Feng MD,PhD,MANOHAR Quest Collection Date/Time: Quest [...] serotype-specific titers may have less robust responses. [facility] uses a multi-analyte immunodetection (MAID) method. The method employs the PriceArea flow cytometric system which measures multiple analytes [...] analytical performance characteristics have been determined by [facility]. It has not been cleared or approved by FDA. This assay has been validated pursuant to the CLIA regulations and used for clinical purposes. For additional information, please refer to http://education.QuantiaMD/faq/IGD789 (This link is being provided for informational/ educational purposes only.) Performed By: #### 1 6963X, 72530W, 44528P, 46890E, 41135X, 83064U, 12124 #### [facility] Default [address] [place] [address] SEROTYPE 8 (8) 0.3 Normal [facility] Rand Cementer Comment on above: Order Comment: Quest Testing performed at: [facility],, [address] [place] [address], , Head Miller: Angela Feng MD,PhD,MANOHAR Quest Collection Date/Time: Quest Results Received Date/Time: [facility] Reported Date/Time: Performed By: #### 1 6963X, 38528P, 54708V, 56147Y, 79675J, 96550N, 75337 #### [facility] Default [address] [place] [address] SEROTYPE 9 (9N) <0.3 Normal [facility] Rand Cementer Comment on above: Order Comment: [facility] Testing performed at: [facility], [facility],, [address] [place] [address], , Head Miller: Angela Feng MD,PhD,MANOHAR Quest Collection Date/Time: Quest Results Received Date/Time: [facility] Reported Date/Time: Performed By: #### 1 6963X, 12909X, 04090V, 91679E, 89461Z, 66140B, 74882 #### [facility] Default [address] [place] [address] Chart Updateon 04-12-2021 Chart Update Chart Update Shiv had a migraine today and was unable to attend class. Signatures Electronically signed by : Chica Whitmore, BLEACH ANALYST-LABORER BLEACH ANALYST-HANDBAG FINISHER; Apr 12 2021 3:16PM EST (Author) Normal [facility] COVID + FLU Quick Testingon 04-04-2021 SARS-CoV-2 (COVID-19) RNA PAMELA+probe Ql (Unsp spec) Negative [facility] Other COVID + FLU Quick Testing Negative [facility] Other Office Visit (Pediatric Neur ology)on 03-22-2021 Follow-up visit Diagnoses/Problems Migraine (346.90) (G43.909) Anxiety (300.00) (F41.9) Orders Migraine Start: Verapamil HCl - 40 MG Oral Tablet; TAKE 1 TABLET 3 times daily MRI Brain without Contrast; Status:Hold For - Scheduling; Requested for:[id number]; Does patient have exposure to metal fragments? : N Radiologist to Determine Optimal Study : Y Requesting physician's phone/pager number? : [phone] Does the patient have a Cochlear Implant, Pacemaker, Defibrilator, Pacing Wire, Brain Aneurysm Clip, Implanted Nerve or Bone Graft Simulator, Implanted Breast Tissue Canvassing Manager, Glucose Monitor, or Neulasta Device? : No [...] updates. My nurse is Yolanda Calvillo at [phone]. 8. Follow up in 2-3 months with [...] at headach (more content not included)... Normal [facility] X[facility] Abdomen Single View (KUB) *on 03-08-2021 XR Abdomen Single View (KUB)* HISTORY: Nausea and generalized abdominal pain. Chronic constipation. COMPARISON: CT 11/12/2019 RESULT: Nonspecific nondilated bowel gas pattern. Feces throughout the colon. No abnormal calcifications. No acute osseous findings. Lung bases unremarkable. No other significant abnormality. IMPRESSION: No acute radiographic findings. Report reported and signed by Butch Sanchez on 03/08/2021 194 Normal [facility] Rand Cementer COVID Quick Testingon 2021 Result Negative [facility] Other COVID Quick Testingon 2020 Result Negative [facility] Other COVID Quick Testingon 2020 Result Negative [facility] Other Quick Strepon 11-19-2020 S. pyogenes Org specific cx Ql (Throat) Negative [facility] Other Quick Strep [facility] Other CNTHERAPYon 11-13-2020 CNTHERAPY OT/PT/Speech Visit ([facility]) SHIV EVANGELISTA ([id number]) 2 F Date Time Provider Department 11/13/20 10:45 AM LYNN POTTS PTAGauri Date Time Provider Department Center 11/13/2020 10:45 AM [id number], MEGAN [facility] Reason for Visit: Physical Therapy [503] PT [...] 2 tablets by mouth twice daily. Normal [facility] CNTHERAPYon 11-09-2020 CNTHERAPY OT/PT/Speech Visit ([facility]) SHIV EVANGELISTA ([id number]) 2 F Date Time Provider Department 11/09/20 11:30 AM ALEXANDRA SUAREZ Date Time Provider Department Center 11/09/2020 11:30 AM [id number] SUAREZ C Bldg Reason for Visit: PT Eval [...] 4 hours as needed. - JUNEL FE 1.5/30, 28, 1.5 mg-30 mcg (21)/75 mg (7) [...] Planned: 8 Planned Treatment Interventions: Therapeutic exercise (04438);Neuromuscula r re-education (43070);Manual therapy (90748);Therapeutic activities (14975);Self-shelter management (58930);Patient/Fami ly/Caregiver Education;Biofeedbac k Pelvic (92997,26667) PLAN FOR NEXT VISIT: toileting positions, colon [...] Family Intake Information: Prescription present Previous Treatment: Communication Spec (more content not included)... Normal [facility] Office Visit (Pediatric Neur ology)on 08-30-2020 [...] Schedule a biofeedback session with Ramona Rice, LEE 2. Restart Prozac 10 mg then 20 mg at bed. Note effect on anxiety. 3. Look into counseling options through the school. 4. Continue to use Ativan for panic attacks. 5. Continue with the Ajovy for migraine management 6. Can use cocktail to break headache once they occur. 7. Call with updates. My nurse is Yolanda Calvillo at [phone]. 8. Follow up in 2-3 months with updates in the interim. Chief Complaint Follow up POTS Accompanied by mother. History of Present Illness Shiv is a 20 year old young woman with POTS, anxiety and headaches. She is taking 2 summer courses. She continues through [employer] and is taking her courses through [employer]. She stopped all her meds because [...] holidays as well. She still works at [employer]. She denies any thoughts about hurting herself [...] MG Oral Tablet Vitals Vital Signs Recorded: [id number] 01:02PM Gejdke445 lb 7.31 oz 2-20 Weight [id number] % Physical Exam Constitutional - Well dressed, [...] bilaterally. Fundoscopi (more content not included)... Normal [facility] Psych[facility] Adult No report was sent Normal [facility] Provider Orderson 01-17-2020 Provider Orders [id number] [facility] Vital Signs Date Time Vital Sign Value Performing Clinician Facility 02-09-2024 16:38-0500 Diastolic blood pressure 60 mm[Hg] Rahel Fuentesion ROD TAPE OPERATOR Work Phone: [facility] 02-09-2024 16:38-0500 Heart rate 78 /min Rahel Didion ROD TAPE OPERATOR Work Phone: [facility] 02-09-2024 16:38-0500 Respiratory rate 16 /min Raheljanie Fuentesion ROD TAPE OPERATOR Work Phone: [facility] 02-09-2024 16:38-0500 SaO2% (BldA) [Mass fraction] 98 % Rahel Ginaion ROD TAPE OPERATOR Work Phone: [facility] 02-09-2024 16:38-0500 Systolic blood pressure 118 mm[Hg] Rahel Didion ROD TAPE OPERATOR Work Phone: [facility] 01-22-2024 16:40-0500 Body mass index (BMI) [Ratio] 26.48 kg/m2 Linda MITCHELL Work Phone: [facility] 01-22-2024 16:40-0500 Body weight 65.68 kg Linda MITCHELL Work Phone: [facility] 01-22-2024 16:40-0500 Diastolic blood pressure 60 mm[Hg] Linda MITCHELL Work Phone: [facility] 01-22-2024 16:40-0500 Systolic blood pressure 118 mm[Hg] Linda MITCHELL Work Phone: [facility] 01-12-2024 15:14-0500 Body height 157.5 cm Ok Tyson DO Work Phone: [facility] 01-12-2024 15:14-0500 Body mass index (BMI) [Ratio] 25.61 kg/m2 Ok Tyson DO Work Phone: [facility] 01-12-2024 15:14-0500 Body weight 63.5 kg Ok Tyson DO Work Phone: [facility] 01-12-2024 15:14-0500 Diastolic blood pressure 60 mm[Hg] Ok Tyson DO Work Phone: [facility] 01-12-2024 15:14-0500 Heart rate 87 /min Ok Tyson DO Work Phone: [facility] 01-12-2024 15:14-0500 SaO2% (BldA) [Mass fraction] 99 % Ok Tyson DO Work Phone: [facility] 01-12-2024 15:14-0500 Systolic blood pressure 114 mm[Hg] Ok Tyson DO Work Phone: [facility] 01-02-2024 17:15-0500 Body mass index (BMI) [Ratio] 25.24 kg/m2 Yaritza Gonzalez ROD TAPE OPERATOR Work Phone: [facility] 01-02-2024 17:15-0500 Body temperature 98.01 [degF] Yaritza Gonzalez ROD TAPE OPERATOR Work Phone: [facility] 01-02-2024 17:15-0500 Body weight 62.6 kg Yaritza Gonzalez ROD TAPE OPERATOR Work Phone: [facility] 01-02-2024 17:15-0500 Heart rate 100 /min Yaritza Gonzalez ROD TAPE OPERATOR Work Phone: [facility] 01-02-2024 17:15-0500 SaO2% (BldA) [Mass fraction] 99 % Yaritza Gonzalez ROD TAPE OPERATOR Work Phone: [facility] 12-24-2023 15:56-0500 Body mass index (BMI) [Ratio] 25.13 kg/m2 Navid Alondra DO Work Phone: [facility] 12-24-2023 15:56-0500 Body weight 62.32 kg Navid Alondra DO Work Phone: [facility] 12-24-2023 15:56-0500 Diastolic blood pressure 74 mm[Hg] Navid Alondra DO Work Phone: [facility] 12-24-2023 15:56-0500 Systolic blood pressure 116 mm[Hg] Navid Alondra DO Work Phone: [facility] 12-24-2023 13:55-0500 Body mass index (BMI) [Ratio] 25.28 kg/m2 Suzan Patrick ROD TAPE OPERATOR Work Phone: [facility] 12-24-2023 13:55-0500 Body temperature 98.71 [degF] Suzan Patrick ROD TAPE OPERATOR Work Phone: [facility] 12-24-2023 13:55-0500 Body weight 62.7 kg Suzan Patrick ROD TAPE OPERATOR Work Phone: [facility] 12-24-2023 13:55-0500 Diastolic blood pressure 62 mm[Hg] Suzan Patrick ROD TAPE OPERATOR Work Phone: [facility] 12-24-2023 13:55-0500 Heart rate 96 /min Suzan Patrick ROD TAPE OPERATOR Work Phone: [facility] 12-24-2023 13:55-0500 SaO2% (BldA) [Mass fraction] 97 % Suzan Patrick ROD TAPE OPERATOR Work Phone: [place] [id number] 13:55-0500 Systolic blood pressure 118 mm[Hg] Suzan Quinonesradha ROD TAPE OPERATOR Work Phone: [facility] 11-25-2023 14:49-0400 Body mass index (BMI) [Ratio] 25.15 kg/m2 Navid Alondra DO Work Phone: [facility] 11-25-2023 14:49-0400 Body weight 62.37 kg Navid Alondra DO Work Phone: [facility] 11-25-2023 14:49-0400 Diastolic blood pressure 68 mm[Hg] Navid Alondra DO Work Phone: [facility] 11-25-2023 14:49-0400 Systolic blood pressure 118 mm[Hg] Navid Alondra DO Work Phone: [facility] 10-23-2023 15:19-0400 Body mass index (BMI) [Ratio] 24.4 kg/m2 Nom Nurse [facility] 10-23-2023 15:19-0400 Body weight 60.51 kg [facility] Nurse [facility] 10-23-2023 15:19-0400 Diastolic blood pressure 70 mm[Hg] [facility] Nurse [facility] 10-23-2023 15:19-0400 Systolic blood pressure 120 mm[Hg] [facility] Nurse [facility] 07-04-2023 10:15-0400 Body height 157.48 cm DO Ok Tyson Work Phone: [facility] 07-04-2023 10:15-0400 Body mass index (BMI) [Ratio] 23.8 kg/m2 DO Ok Vaschak Work Phone: [facility] 07-04-2023 10:15-0400 Body weight 58.96 kg DO Ok Giacomok Work Phone: [facility] 07-04-2023 10:15-0400 Diastolic blood pressure 70 mm[Hg] DO Ok Charleschak Work Phone: [facility] 07-04-2023 10:15-0400 Heart rate 72 /min DO Ok Vaschak Work Phone: [facility] 07-04-2023 10:15-0400 Respiratory rate 18 /min DO Ok Charleschak Work Phone: [facility] 07-04-2023 10:15-0400 SaO2% (BldA) [Mass fraction] 98 % DO Ok Vaschak Work Phone: [facility] 07-04-2023 10:15-0400 Systolic blood pressure 124 mm[Hg] DO Ok Vaschak Work Phone: [facility] 09-20-2022 08:00-0400 Body temperature 97.9 [degF] DO Ok Giacomok Work Phone: [facility] 09-20-2022 08:00-0400 Diastolic blood pressure 74 mm[Hg] DO Ok Giacomok Work Phone: [facility] 09-20-2022 08:00-0400 Heart rate 73 /min DO Ok Charleschak Work Phone: [facility] 09-20-2022 08:00-0400 Respiratory rate 18 /min DO Ok Giacomok Work Phone: [facility] 09-20-2022 08:00-0400 SaO2% (BldA) [Mass fraction] 98 % DO Ok Giacomok Work Phone: [facility] 09-20-2022 08:00-0400 Systolic blood pressure 118 mm[Hg] DO Ok Vaschak Work Phone: [facility] 09-18-2022 08:29-0400 Body height 157.48 cm DO Ok Giacomok Work Phone: [facility] 09-18-2022 08:29-0400 Body weight 72.57 kg DO Ok Charleschak Work Phone: [facility] 08-10-2022 17:06-0400 Diastolic blood pressure 78 mm[Hg] DO Ok Vaschak Work Phone: [facility] 08-10-2022 17:06-0400 Heart rate 105 /min DO Ok Tyson Work Phone: [facility] 08-10-2022 17:06-0400 Systolic blood pressure 133 mm[Hg] DO Ok Tyson Work Phone: [facility] 08-10-2022 17:00-0400 Respiratory rate 16 /min DO Ok Tyson Work Phone: [facility] 08-10-2022 16:38-0400 SaO2% (BldA) [Mass fraction] 98 % DO Ok Tyson Work Phone: [facility] 11-25-2021 23:45-0400 Diastolic blood pressure 71 mm[Hg] Rayray Kenia [facility] 11-25-2021 23:45-0400 Heart rate 77 /min Rayray Kenia [facility] 11-25-2021 23:45-0400 Hourly Rounding Rayray Kenia [facility] 11-25-2021 23:45-0400 Respiratory rate 18 /min Rayray Kenia [facility] 11-25-2021 23:45-0400 SaO2% (BldA) [Mass fraction] 100 % Rayray Kenia [facility] 11-25-2021 23:45-0400 Systolic blood pressure 105 mm[Hg] Rayray Kenia [facility] 11-25-2021 22:00-0400 Diastolic blood pressure 83 mm[Hg] Rayray Kenia [facility] 11-25-2021 22:00-0400 Heart rate 69 /min Rayray Kenia [facility] 11-25-2021 22:00-0400 Hourly Rounding Rayray Kenia [facility] 11-25-2021 22:00-0400 Respiratory rate 14 /min Rayray Kenia [facility] 11-25-2021 22:00-0400 Systolic blood pressure 123 mm[Hg] Rayray Kenia [facility] 11-25-2021 19:00-0400 Body temperature 98.42 [degF] Rayray Kenia [facility] 11-25-2021 19:00-0400 Diastolic blood pressure 81 mm[Hg] Rayray Kenia [facility] 11-25-2021 19:00-0400 Heart rate 79 /min Rayray Kenia [facility] 11-25-2021 19:00-0400 Hourly Rounding Rayray Kenia [facility] 11-25-2021 19:00-0400 Respiratory rate 12 /min Rayray Kenia [facility] 05-30-2021 12:44-0400 Body height 160 cm Terence Pyle Work Phone: NX-Obxeahyyc-Bbybgqk y H DO Work Phone: 05-30-2021 12:44-0400 Body mass index (BMI) [Ratio] 19.65 kg/m2 Terence Pyle Work Phone: RL-Mtbmrztwi-Oknbqtv y H DO Work Phone: 05-30-2021 12:44-0400 Body surface area Derived from formula 1.5 m2 Terence Pyle Work Phone: LQ-Rjzqxpjxe-Hvdbmds y H DO Work Phone: 05-30-2021 12:44-0400 Body temperature 98.5 [degF] Terence Pyle Work Phone: NH-Ehvyaxuyz-Lzgweuc y H DO Work Phone: 05-30-2021 12:44-0400 Body weight 50.3 kg Terence Pyle Work Phone: GO-Ajsbltgcn-Asnaaon y H DO Work Phone: 05-30-2021 12:44-0400 Diastolic blood pressure 74 mm[Hg] Terence Pyle Work Phone: AW-Wznovfgog-Opfiklr y H DO Work Phone: 05-30-2021 12:44-0400 Heart rate 74 /min Terence Pyle Work Phone: IJ-Erezxzsvs-Nyhqpru y H DO Work Phone: 05-30-2021 12:44-0400 Systolic blood pressure 120 mm[Hg] Terence Pyle Work Phone: OU-Dpluxwtdi-Zqyhavk y H DO Work Phone: 05-17-2021 23:00-0400 Diastolic blood pressure 61 mm[Hg] [facility] 05-17-2021 23:00-0400 Heart rate 81 /min [facility] 05-17-2021 23:00-0400 SaO2% (BldA) [Mass fraction] 97 % [facility] 05-17-2021 23:00-0400 Systolic blood pressure 106 mm[Hg] [facility] 05-17-2021 20:48-0400 Body temperature 98.6 [degF] [facility] 05-17-2021 20:48-0400 Diastolic blood pressure 83 mm[Hg] [facility] 05-17-2021 20:48-0400 Heart rate 97 /min [facility] 05-17-2021 20:48-0400 Respiratory rate 16 /min [facility] 05-17-2021 20:48-0400 SaO2% (BldA) [Mass fraction] 98 % [facility] 05-17-2021 20:48-0400 Systolic blood pressure 128 mm[Hg] [facility] 04-04-2021 14:45-0500 Body height 157.48 cm Albert White Other [employer] Other 04-04-2021 14:45-0500 Body mass index (BMI) [Ratio] 20.3 kg/m2 Albert White Other [employer] Other 04-04-2021 14:45-0500 Body temperature 100 [degF] Albert White Other [employer] Other 04-04-2021 14:45-0500 Body weight 50.35 kg Albert White Other [employer] Other 04-04-2021 14:45-0500 Respiratory rate 16 /min Albert White Other [employer] Other 04-04-2021 14:45-0500 SaO2% (BldA) [Mass fraction] 99 % Albert White Other [employer] Other 2021 10:00-0500 Body height 157.48 cm Pankaj Berger Other [employer] Other 2021 10:00-0500 Body mass index (BMI) [Ratio] 20.3 kg/m2 Pankaj Berger Other [employer] Other 2021 10:00-0500 Body weight 50.35 kg Pankaj Berger Other [employer] Other 2021 10:00-0500 Diastolic blood pressure 67 mm[Hg] Pankaj Berger Other [employer] Other 2021 10:00-0500 Systolic blood pressure 108 mm[Hg] Pankaj Berger Other [employer] Other 12-13-2020 13:10-0400 Body height 157.48 cm Chacho Domingo Other [employer] Other 12-13-2020 13:10-0400 Body mass index (BMI) [Ratio] 21.03 kg/m2 Chacho Domingo Other [employer] Other 12-13-2020 13:10-0400 Body temperature 98.4 [degF] Chacho Domingo Other [employer] Other 12-13-2020 13:10-0400 Body weight 52.16 kg Chacho Domingo Other [employer] Other 12-13-2020 13:10-0400 Diastolic blood pressure 81 mm[Hg] Chacho Domingo Other [employer] Other 12-13-2020 13:10-0400 SaO2% (BldA) [Mass fraction] 100 % Chacho Domingo Other [employer] Other 12-13-2020 13:10-0400 Systolic blood pressure 127 mm[Hg] Chacho Domingo Other [employer] Other 11-19-2020 13:15-0400 Body height 157.48 cm Albert White Other [employer] Other 11-19-2020 13:15-0400 Body mass index (BMI) [Ratio] 20.12 kg/m2 Albert White Other [employer] Other 11-19-2020 13:15-0400 Body temperature 98.9 [degF] Albert White Other [employer] Other 11-19-2020 13:15-0400 Body weight 49.9 kg Albert White Other [employer] Other 11-19-2020 13:15-0400 Diastolic blood pressure 91 mm[Hg] Albert White Other [employer] Other 11-19-2020 13:15-0400 SaO2% (BldA) [Mass fraction] 100 % Albert White Other [employer] Other 11-19-2020 13:15-0400 Systolic blood pressure 149 mm[Hg] Albert White Other [employer] Other 11-06-2020 15:00-0400 Body weight 51.26 kg Pankaj Berger Other [employer] Other 08-30-2020 13:02-0400 Body weight 56 kg Terence Pyle Work Phone: MT-Icopopgwun-Yqvbeq nds Work Phone: 08-30-2020 13:02-0400 42 1 Terence Pyle Work Phone: IF-Ogckmipdtr-Inomnt nds Work Phone: Comment on above: 2-20_WPerc 11-05-2019 12:33-0400 BMI (Body Mass Index) 22.76 kg/m2 Chica Haim VR-Uyrrinrcwy-Zwaesu ogy-Admin RBC 585 Work Phone: 11-05-2019 12:33-0400 Body weight 56.81 kg Chica Haim WB-Qumffwlean-P eurol ogy-Admin RBC 585 Work Phone: 11-05-2019 12:33-0400 BP Diastolic 77 mm[Hg] Chica Haim HC-Sxefdktxrd-A eurol ogy-Admin RBC 585 Work Phone: 11-05-2019 12:33-0400 BP Systolic 127 mm[Hg] Chica Haim CA-Reasepmjaa-N eurol ogy-Admin RBC 585 Work Phone: 11-05-2019 12:33-0400 BSA (Body Surface Area) 1.57 m2 Chica Haim ON-Gzavwytmdr-Lpqhxa ogy-Admin RBC 585 Work Phone: 11-05-2019 12:33-0400 Height 158 cm Chica Haim YL-Oanpmsvmom-L eurol ogy-Admin RBC 585 Work Phone: 11-05-2019 12:33-0400 21 1 Chica Haim PN-Ymtrbsaezk-S eurol ogy-Admin RBC 585 Work Phone: Comment on above: 2-20 Stature Percentile 11-05-2019 12:33-0400 49 1 Chica Haim AG-Hanvjkrdof-I eurol ogy-Admin RBC 585 Work Phone: Comment on above: 2-20 Weight Percentile 11-05-2019 12:33-0400 64 1 Chica Haim FF-Umbtufmgos-P eurol ogy-Admin RBC 585 Work Phone: Comment on above: BMI Percentile 08-25-2019 12:37-0400 BMI (Body Mass Index) 22.79 kg/m2 Chica Haim QT-Stqaulonvw-Dhnowm og-Admin RBC 585 Work Phone: 08-25-2019 12:37-0400 Body weight 56.9 kg Chica Haim HA-Axhkkwnedl-O eurol og-Admin RBC 585 Work Phone: 08-25-2019 12:37-0400 BP Diastolic 76 mm[Hg] Chica Haim RV-Sixyiamwht-T eurol og-Admin RBC 585 Work Phone: 08-25-2019 12:37-0400 BP Systolic 126 mm[Hg] Chica Haim OU-Fwbnjvmlfr-B eurol og-Admin RBC 585 Work Phone: 08-25-2019 12:37-0400 BSA (Body Surface Area) 1.57 m2 Chica Haim LR-Pnpaduhyyf-Iyyhgs og-Admin RBC 585 Work Phone: 08-25-2019 12:37-0400 Height 158 cm Chica Haim VS-Wwugmryhii-X eurol og-Admin RBC 585 Work Phone: 08-25-2019 12:37-0400 21 1 Chica Haim LC-Wnfztklcoq-N eurol og-Admin RBC 585 Work Phone: Comment on above: 2-20 Stature Percentile 08-25-2019 12:37-0400 51 1 Chica Haim GO-Chzswiesec-S eurol og-Admin RBC 585 Work Phone: Comment on above: 2-20 Weight Percentile 08-25-2019 12:37-0400 65 1 Chica Haim MC-Ctfxvaahyr-U eurol og-Admin RBC 585 Work Phone: Comment on above: BMI Percentile Encounters Encounter Date Encounter Type Care Provider Facility Start: 02-09-2024 End: 02-09-2024 Office outpatient visit 15 minutes Rahel Molina ROD TAPE OPERATOR Work Phone: [facility] Comment on above: Acute non-recurrent pansinusitis (Primary Dx); Fever, unspecified fever cause Start: 02-09-2024 End: 02-09-2024 ambulatory RAHEL MOLINA Not Available Start: 01-22-2024 End: 01-22-2024 Office outpatient visit 15 minutes Linda MITCHELL Work Phone: [facility] Comment on above: Second trimester pre gnancy; 21 weeks gestation of ; Diabetes mellitus screening Start: 01-22-2024 End: 01-22-2024 ambulatory LIDNA ROBERT Not Available Start: 01-22-2024 End: 01-22-2024 Bamboo flowsheet Linda MITCHELL Work Phone: [facility] Start: 01-22-2024 End: 01-22-2024 Bamboo flowsheet Linda Robert PA Work Phone: [facility] Start: 01-12-2024 End: 01-12-2024 Periodic preventive med est patient 18-39 yrs Ok Arpit Tyson DO Work Phone: [facility] [place] Comment on above: Wellness examination (Primary Dx); Right leg pain; Celiac disease (CMS/HCC); Acquired right calf asymmetry Start: 01-12-2024 End: 01-12-2024 ambulatory OK TYSON Not Available Start: 01-12-2024 End: 01-12-2024 Patient encounter status Ok Munson Marbella DO Work Phone: [facility] Start: 01-03-2024 End: 01-03-2024 ambulatory Yaritza Gonzalez Facility:[facility] Start: 01-02-2024 End: 01-02-2024 Office outpatient visit 25 minutes Yaritza Gonzalez ROD TAPE OPERATOR Work Phone: [facility] Comment on above: Pain of left calf (P rimary Dx); Swelling of calf Start: 01-02-2024 End: 01-02-2024 ambulatory YARITZA GONZALEZ Not Available Start: 12-24-2023 End: 12-24-2023 Patient encounter procedure Navid Alondra DO Work Phone: [facility] Work Phone: Start: 12-24-2023 End: 12-24-2023 Periodic preventive med est patient 18-39 yrs Navid Alondra DO Work Phone: [facility] Comment on above: Well woman exam with routine gynecological exam; Second trimester ; 17 weeks gestation of ; Vaginal discharge; STD exposure; Screening, , for anatomic survey; Upper respiratory tract infection, unspecified type Start: 12-24-2023 End: 12-24-2023 ambulatory NAVID ALONDRA [...] Office outpatient visit 25 minutes Suzan Patrick ROD TAPE OPERATOR Work Phone: [facility] Comment on above: Acute bronchitis, un specified organism (Primary Dx); Acute cough; Exposure to pneumonia; 18 weeks gestation of Start: 12-24-2023 End: 12-24-2023 ambulatory SUZAN PATRICK Not Available Start: 11-25-2023 End: 11-25-2023 flow sheet Navid Alondra DO Work Phone: [facility] Comment on above: Second trimester pre gnancy; 13 weeks gestation of Start: 11-25-2023 End: 11-25-2023 Bamboo flowsheet Navid Alondra DO Work Phone: [facility] Start: 11-25-2023 End: 11-25-2023 Bamboo flowsheet Navid Alondra DO Work Phone: [facility] Start: 11-25-2023 End: 11-25-2023 ambulatory NAVID ALONDRA Not Available Start: 11-01-2023 End: 11-01-2023 Clinisync Result Encounter Generic External Data Provider [facility] External Department Unsolicited Start: 11-01-2023 End: 11-01-2023 Clinisync Result Encounter Generic External Data Provider [facility] External Department Unsolicited Start: 10-23-2023 End: 10-23-2023 ambulatory RAHEL DIDION Not Available Start: 10-23-2023 End: 10-23-2023 Office outpatient visit 5 minutes [facility] Alondra Nurse [facility] Comment on above: GA: 8w5d Start: 08-06-2023 End: 08-06-2023 ambulatory TERENCE A VISCI Not Available Start: 07-04-2023 End: 07-04-2023 ambulatory DO Ok Tyson Work Phone: [facility] Work Phone: Start: 07-04-2023 End: 07-04-2023 Patient encounter procedure DO Ok Tyson Work Phone: [facility] Work Phone: Start: 06-18-2023 End: 06-18-2023 ambulatory OK TYSON Not Available Start: 06-07-2023 Non-patient / Non-visit DO Guillermo kaia Marbella Work Phone: [facility] Work Phone: Start: 06-02-2023 End: 06-02-2023 ambulatory TERENCE A VISCI Not Available Start: 05-31-2023 End: 05-31-2023 Patient encounter procedure DO Ok Tyson Work Phone: [facility] Work Phone: Start: 05-31-2023 End: 05-31-2023 ambulatory DO Ok Tyson Work Phone: [facility] Work Phone: Start: 05-23-2023 End: 05-23-2023 ambulatory TERENCE A VISCI Not Available Start: 05-14-2023 End: 05-14-2023 ambulatory RAHEL L DIDION Not Available Start: 09-23-2022 End: 09-23-2022 ambulatory DO Ok Tyson Work Phone: [facility] Work Phone: Start: 09-23-2022 End: 09-23-2022 Patient encounter procedure DO Ok Tyson Work Phone: [facility] Work Phone: Start: 09-18-2022 End: 09-20-2022 Evaluation and management of inpatient DO Ok Tyson Work Phone: [facility] [place] Work Phone: Start: 09-03-2022 End: 09-03-2022 Departed Referred DO Ok Tyson Work Phone: [facility] [place] Work Phone: Start: 08-10-2022 End: 08-10-2022 ambulatory DO Ok Tyson Work Phone: [facility] Work Phone: Start: 08-10-2022 End: 08-10-2022 Patient encounter procedure DO Ok Tyson Work Phone: [facility] [place] - O/P Start: 11-25-2021 End: 11-26-2021 Emergency department patient visit Rayray Aquino Facility:[facility] Start: 11-25-2021 End: 11-25-2021 Emergency department patient visit Rayray WrightCharley Kenia [facility] Start: 10-09-2021 End: 10-09-2021 Patient encounter procedure DO Ok Tyson Work Phone: [facility] [place] [place] Start: 09-23-2021 End: 09-23-2021 ambulatory Pankaj Berger Other [facility] [employer] Other Start: 09-23-2021 Telephone encounter Pankaj Berger [facility] Start: 09-18-2021 End: 09-18-2021 ambulatory Pankaj Berger Other [employer] Other Start: 09-18-2021 Telephone encounter Pankaj Serrano Gastroenterology Start: 09-13-2021 End: 09-13-2021 Patient encounter procedure DO Ok Tyson Work Phone: [facility] [place] [place] Start: 09-03-2021 Rx Renewal Terence Jimena Valorie er Work Phone: XI-Jrtlghwlhj-Mpwvqx 220 Work Phone: Start: 08-20-2021 End: 08-20-2021 Patient encounter procedure DO Ok Tyson Work Phone: [facility] Start: 07-03-2021 End: 07-03-2021 ambulatory Pankaj Berger Other [employer] Other Start: 07-03-2021 Telephone encounter Pankaj Serrano Gastroenterology Start: 06-11-2021 End: 06-11-2021 ambulatory Pankaj Berger Other [employer] Other Start: 06-11-2021 Telephone encounter Pankaj Serrano Gastroenterology Start: 06-02-2021 Rx Renewal Terence Jimena Nassarl er Work Phone: JP-Tuzcsbpbxk-Iyfrcbjrc-Ad min RBC 585 Work Phone: Start: 05-30-2021 ambulatory Terence Pyle Facility: Start: 05-30-2021 Office outpatient vi sit 15 minutes Terence Pyle Work Phone: WS-Zfpikxviht-Xggrrmmlj-Ad min RBC 585 Work Phone: Start: 05-30-2021 Patient encounter procedure Terence Pyle Work Phone: NR-Aoviuvbmf-Bsodwweh H DO Work Phone: Start: 05-17-2021 End: 05-17-2021 Emergency department patient visit Astrit H Hajdari [facility] Start: 05-11-2021 Telephone encounter Terence Pyle Work Phone: CR-Niaveqquai-Bzcyeoljszd 220 Work Phone: Start: 04-27-2021 End: 04-27-2021 ambulatory Pankaj Berger Other [employer] Other Start: 04-27-2021 Telephone encounter Pankaj STONE G G[facility]enter[facility] Start: 04-09-2021 AUDIT Terence Eugene er Work Phone: [facility] 944 Work Phone: Start: 04-06-2021 End: 04-06-2021 ambulatory Albert Christopher Other [employer] Other Start: 04-06-2021 Telephone encounter Albert Byrnes [facility] Start: 04-05-2021 End: 04-05-2021 ambulatory Pankaj Berger Other [employer] Other Start: 04-05-2021 Telephone encounter Pankaj STONE [facility]enter[facility] Start: 04-04-2021 End: 04-04-2021 ambulatory Albert Montcalm Other [employer] Other Start: 04-04-2021 Office outpatient vi sit 15 minutes Albert Montcalm [facility] Start: 04-03-2021 End: 04-03-2021 ambulatory Pankaj Berger Other [employer] Other Start: 04-03-2021 Telephone encounter Pankaj STONE [facility] Start: 03-30-2021 End: 03-30-2021 ambulatory Pankaj Berger Other [employer] Other Start: 03-30-2021 Telephone encounter Pankaj STONE [facility] Start: 03-26-2021 Rx Renewal Terence Eugene er Work Phone: SE-Wywbtfgjgy-Cqdxghwe 1600 Work Phone: Start: 03-22-2021 ambulatory Terence Pyle Facility:[id number] Start: 03-22-2021 Office outpatient vi sit 15 minutes Terence Pyle Work Phone: GV-Tnvqufdvhu-Cyecxyecd-Ad min RBC 585 Work Phone: Start: 03-22-2021 Patient encounter procedure Terence Pyle Work Phone: SB-Lestjhuxvw-Zcirqb 220 Work Phone: Start: 2021 End: 2021 ambulatory Pankaj Berger Other [employer] Other Start: 2021 Patient encounter procedure Pankaj RODRIGUEZ Gastroenterology Start: 03-07-2021 End: 03-07-2021 ambulatory Pankaj Berger Other [employer] Other Start: 03-07-2021 Telephone encounter Pankaj STONE [facility] Start: 02-15-2021 End: 02-15-2021 ambulatory Pankaj Berger Other [employer] Other Start: 02-15-2021 Telephone encounter Pankaj STONE [facility]enter[facility] Start: 02-12-2021 End: 02-12-2021 ambulatory Brenda Armstorng Other [employer] Other Start: 02-12-2021 Office outpatient vi sit 5 minutes Brenda Nathaniel [facility] Start: 12-20-2020 End: 12-20-2020 ambulatory Pankaj Berger Other [employer] Other Start: 12-20-2020 Telephone encounter Pankaj STONE [facility]enter[facility] Start: 12-14-2020 (Human Relations Professor) Human Relations Professor Laura Byrnes [facility] Start: 12-14-2020 End: 12-14-2020 ambulatory Laura Day Other [employer] Other Start: 12-13-2020 End: 12-13-2020 ambulatory Maldonadovicenta Shiv Other [employer] Other Start: 12-13-2020 Office outpatient vi sit 15 minutes Chacho Domingo [facility] Start: 12-11-2020 End: 12-11-2020 ambulatory Pankaj Berger Other [employer] Other Start: 12-11-2020 Telephone encounter Pankaj STONE [facility] Start: 11-28-2020 AUDIT Terence Eugene er Work Phone: OR-Qbxlvjoamt-Gdepfkqlx-Ad min RBC 585 Work Phone: Start: 11-27-2020 Telephone encounter Pankaj [facility] Start: 11-21-2020 Telephone encounter [facility] Start: 11-19-2020 Office outpatient vi sit 15 minutes Albert White [facility] Start: 11-08-2020 Telephone encounter [facility]aj [facility] Start: 11-06-2020 Patient encounter procedure [facility]ankaj [facility] Start: 09-27-2020 AUDIT Terence Eugene er Work Phone: GC-Ldilxzyzrt-Cbxtjijsp Work Phone: Start: 08-30-2020 Office outpatient vi sit 15 minutes Terence Pyle Work Phone: SZ-Evxfbkzcio-Klzxcuoog Work Phone: Start: 08-22-2020 AUDIT Terence Eugene er Work Phone: QP-Elgrrlemnb-Bxahxnisg-Ad min RBC 585 Work Phone: Start: 07-19-2020 Rx Renewal Terence Eugene er Work Phone: TA-Kypsfxaqmj-Lwtpgtrff-Ad min RBC 585 Work Phone: Start: 03-29-2020 Patient encounter procedure Chica Whitmore BLEACH ANALYST-LABORER, BLEACH ANALYST-HANDBAG FINISHER EZ-Tztdzqjnan-Fwonfhap 1600 Work Phone: Start: 12-29-2019 Patient encounter procedure Chica Whitmore BLEACH ANALYST-LABORER, BLEACH ANALYST-HANDBAG FINISHER VP-Loxuvwmprd-Zyadrizt 1600 Work Phone: Start: 12-24-2019 End: 12-24-2019 Patient encounter procedure Bree (Mining Speculator) Aleshia Work Phone: [facility] Start: 12-24-2019 Results Only Bree (Mining Speculator) Aleshia Work Phone: Colorectal Surgery Start: 12-10-2019 End: 12-10-2019 Orders Only Bree (Mining Speculator) Aleshia Work Phone: Gastroenterology Comment on above: Constipation, unspec ified constipation type (Primary Dx) Start: 11-05-2019 Patient encounter procedure Chica Whitmore IP-Doyvbdqpzn-Uvjjetukt-Ad min RBC 585 Work Phone: Start: 08-25-2019 Patient encounter procedure Chica Whitmore FD-Niknfuhght-Vgaayzzu-Adm in RBC 585 Work Phone: Start: 04-28-2019 Patient encounter procedure Chica Whitmore LL-Vsvnthkmuz-Wjoycmte-Adm in RBC 585 Work Phone: Start: 12-30-2018 Patient encounter procedure Chica Whitmore JG-Hmxwicsfow-Cwgyhszpt Work Phone: Start: 09-30-2018 Patient encounter procedure Chica Whitmore YT-Eayzijvgdp-Xfrekgfix Work Phone: Start: 04-29-2018 Patient encounter procedure Chica Whitmore XU-Fgcfklkfpz-Xrqxdbmym Work Phone: Start: 01-28-2018 Patient encounter procedure Chica Whitmore OJ-Ecstrtmimc-Vpjtinplo Work Phone: Start: 11-07-2017 Patient encounter procedure Chica Whitmore [facility] Work Phone: Start: 08-01-2017 Patient encounter procedure Chica Whitmore [facility] Work Phone: Start: 05-02-2017 Patient encounter procedure Chica Whitmore [facility] Work Phone: Procedures Date Procedure Procedure Detail Performing Clinician Start: 02-09-2024 STATUS COVID-19/FLU Rahel Molina ROD TAPE OPERATOR Work Phone: Start: 01-22-2024 Urnls dip stick/tablet rgnt non-auto w/o micrscp Linda Robert PA Work Phone: Start: 01-03-2024 Comprehensive metabolic panel Yaritza Gonzalez ROD TAPE OPERATOR Work Phone: Start: 01-03-2024 HEMOGRAM CBC WITHOUT DIFF ([facility]) Yaritza Gonzalez ROD TAPE OPERATOR Work Phone: Start: 12-24-2023 RECURRENT VAGINITIS (HTRX) Navid Alondra D O Work Phone: Start: 12-24-2023 Urnls dip stick/tablet rgnt non-auto w/o micrscp Navid Alondra DO Work Phone: Start: 12-24-2023 IGP,APTIMA HPV,AGE GDLN Navid Alondra DO Work Phone: Start: 11-25-2023 Urnls dip stick/tablet rgnt non-auto w/o micrscp Navid Alondra DO Work Phone: Start: 11-01-2023 ALL CBC WITH AUTO DIFF Navid Alondra DO Work Phone: Start: 10-23-2023 End: 10-23-2023 Urnls dip stick/tablet rgnt non-auto w/o micrscp Navid Alondra DO Work Phone: Start: 09-18-2022 Urine culture DO Ok Tyson Work Phone: Start: 09-03-2022 Streptococcus agalactiae culture DO Krunal Tyson Work Phone: Start: 08-10-2022 Urine culture DO Ok Tyson Work Phone: Start: 03-12-2022 Cytp cerv/vag auto thin layer prep mnl screen [facility] Alondra Nurse Start: 12-24-2019 PT ED PATIENT INFORMATION Bree (Lee) Aleshia Work Phone: Start: 11-05-2019 IO EKG Electrocardiogram- 12 Lead Almaz en Haim Colonoscopy Astrit Hajdari Esophagogastroduodenoscopy A strit Hajairoari Urine culture DO Ok Sotomadhuri jt Work Phone: Plan of Treatment Date Care Activity Detail Author Start: 02-25-2024 End: 02-25-2024 Patient encounter procedure 02/25/2024 3:10 PM EST Routine [facility] [address] [place] [id number] Navid Cantu DO [address] [place], [place] [id number] [facility] Start: 01-22-2024 End: 01-22-2024 Patient encounter procedure [facility] Comment on above: Arrived Start: 01-22-2024 End: 01-21-2025 CBC panel - Blood by Automated count CBC Lab Routine Second trimester 21 weeks gestation of Diabetes mellitus screening Expected: 01/22/2024 (Approximate), Expires: 01/21/2025 [facility] Work Phone: Comment on above: Expected: 01/22/2024 (Approximate), Expires: 01/21/2025 Start: 01-22-2024 End: 01-21-2025 Measurement of glucose 1 hour after glucose challenge for glucose tolerance test Glucose tolerance, 1 hour Lab Routine Second trimester 21 weeks gestation of Diabetes mellitus screening Expected: 01/22/2024 (Approximate), Expires: 01/21/2025 [facility] Healthcare Comment on above: Expected: 01/22/2024 (Approximate), Expires: 01/21/2025 Start: 01-12-2024 End: 01-12-2024 Patient encounter procedure 01/12/2024 3:00 PM EST Office Visit [facility] [address] [place] [address] Ok Tyson, DO [address] [place] [address] [facility] Start: 12-24-2023 End: 12-24-2023 Patient encounter procedure 12/24/2023 3:40 PM EST Routine [facility] [address] [place] [id number] Navid Cantu DO [address] [place] [place] [address] [facility] Start: 12-24-2023 End: 06-22-2024 Alpha fetoprotein, maternal Alpha fetoprotein, maternal Lab Routine Second trimester 17 weeks gestation of Expected: 12/24/2023 (Approximate), Expires: 06/22/2024 [facility] Comment on above: Expected: 12/24/2023 (Approximate), Expires: 06/22/2024 Start: 12-24-2023 End: 12-23-2024 US for US OB ANATOMY SINGLE W US OB CERVICAL LENGTH Imaging Routine Screening, , for anatomic survey Expected: 12/24/2023 (Approximate), Expires: 12/23/2024 [facility] Comment on above: Expected: 12/24/2023 (Approximate), Expires: 12/23/2024 Start: 11-25-2023 End: 11-25-2023 Patient encounter procedure [facility] Comment on above: Arrived Start: 10-23-2023 End: 10-22-2024 ABO/Rh ABO/Rh Lab Routine Missed menses Expected: 10/23/2023 (Approximate), Expires: 10/22/2024 [facility] Comment on above: Expected: 10/23/2023 (Approximate), Expires: 10/22/2024 Start: 10-23-2023 End: 10-22-2024 Blood type and Indirect antibody screen panel - Blood Type and screen Lab Routine Missed menses Expected: 10/23/2023 (Approximate), Expires: 10/22/2024 [facility] Work Phone: Comment on above: Expected: 10/23/2023 (Approximate), Expires: 10/22/2024 Start: 10-23-2023 End: 10-22-2024 Drugs of abuse panel - Urine by Screen method Rapid drug screen, urine Lab Routine Encounter for supervision of normal first in first trimester , unspecified gestational age Expected: 10/23/2023 (Approximate), Expires: 10/22/2024 [facility] Comment on above: Expected: 10/23/2023 (Approximate), Expires: 10/22/2024 Start: 10-23-2023 End: 10-22-2024 US Pelvis transvaginal US OB transvaginal Imaging Routine Missed menses Expected: 10/23/2023 (Approximate), Expires: 10/22/2024 [facility] Comment on above: Expected: 10/23/2023 (Approximate), Expires: 10/22/2024 Start: 10-12-2023 Influenza vaccination Influenza Vacc ine (#1) [facility] Start: 07-04-2023 [facility] Start: 09-20-2022 [facility] Start: 09-19-2022 Hospital admission [facility] Start: 09-18-2022 Hospital admission [facility] Start: 08-10-2022 [facility] Start: 08-10-2022 Hospital admission [facility] Start: 08-10-2022 Bacteria identified in Urine by Culture Urine Culture [facility] Start: 10-09-2021 End: 10-09-2021 Patient encounter procedure Departed Clinical [facility] [place] [place] Start: 05-30-2021 FUV, Provider: Chica Whitmore, Status: Pen, Time: 12:30 PM FUV, Provider: Chica Whitmore, Status: Pen, Time: 12:30 PM EC-Kcfbodjqhn-Potrvb 220 Work Phone: Start: 02-28-2021 FUV, Provider: Chica Whitmore, Status: Pen, Time: 12:30 PM FUV, Provider: Chica Whitmore, Status: Pen, Time: 12:30 PM US-Vkcoqbjcln-Kwvtol ogy-Admin RBC 585 Work Phone: Start: 08-30-2020 FUV, Provider: Chica Whitmore, Status: Pen, Time: 12:30 PM FUV, Provider: Chica Whitmore, Status: Pen, Time: 12:30 PM YL-Pnssujpouu-Bkjrwy ogy-Admin RBC 585 Work Phone: Start: 10-12-2019 Influenza vaccination INFLUENZA (#1) [facility] Start: 2019 CHLAMYDIA SCREENING (18-24) CHLAMYDIA SCREENING (18-24) [facility] Start: 2019 GC (GONORRHEA) SCREE CHELSY (18-24) GC (GONORRHEA) SCREENING (18-24) [facility] Start: 2019 HEPATITIS C SCREENING [facility] Start: 2019 HIV SCREENING HIV SCREENING [facility] Start: 2017 MENINGOCOCCAL CONJUG ATE (1 - 2-dose series) MENINGOCOCCAL CONJUGATE (1 - 2-dose series) [facility] Start: 2013 PHQ-A PHQ-A [facility] Start: 2012 HPV VACCINE (1 - 2-d ose series) HPV VACCINE (1 - 2-dose series) [facility] Start: 2008 Urine microalbumin profile DTAP,TDAP,TD (1 - Tdap) [facility] End: 12-09-2020 Anorectal manometry MANOMETRY ANORECTAL Endoscopy Routine Constipation, unspecified constipation type 1 Occurrences starting 12/23/2019 until 12/09/2020 [facility] Comment on above: 1 Occurrences starti ng 12/23/2019 until 12/09/2020 Bacteria identified in Urine by Culture Urine culture Microbiology Routine Missed menses Ordered: 10/23/2023 [facility] Comment on above: Ordered: 10/23/2023 CBC W Auto Different ial panel - Blood CBC and differential Lab Routine Missed menses Ordered: 10/23/2023 [facility] Comment on above: Ordered: 10/23/2023 CHLAMYDIA TRACHOMATI S (GENITO/STI) CHLAMYDIA TRACHOMATIS (GENITO/STI) Lab Routine STD exposure Ordered: 12/24/2023 [facility] Comment on above: Ordered: 12/24/2023 Cytology Cervical or vaginal smear or scraping study Pap Smear Pathology and Cytology Routine Well woman exam with routine gynecological exam Ordered: 12/24/2023 [facility] Comment on above: Ordered: 12/24/2023 Hemoglobin A1c/Hemoglobin.total in Blood Hemoglobin A1c Lab Routine Missed menses Ordered: 10/23/2023 [facility] Comment on above: Ordered: 10/23/2023 Hepatitis B virus surface Ag [Presence] in Serum or Plasma by Immunoassay Hepatitis B surface antigen Lab Routine Missed menses Ordered: 10/23/2023 [facility] Comment on above: Ordered: 10/23/2023 Hepatitis C virus Ab [Presence] in Serum or Plasma by Immunoassay Hepatitis C antibody Lab Routine Missed menses Ordered: 10/23/2023 [facility] Comment on above: Ordered: 10/23/2023 HIV-1/HIV-2 antigen/antibody combination immunoassay HIV-1 and HIV-2 antibodies Lab Routine Missed menses Ordered: 10/23/2023 [facility] Comment on above: Ordered: 10/23/2023 Neisseria gonorrhoea e DNA [Presence] in Unspecified specimen by PAMELA with probe detection Neisseria gonorrhea DNA probe, direct Lab Routine STD exposure Ordered: 12/24/2023 [facility] Comment on above: Ordered: 12/24/2023 Patient Education [facility] Work Phone: Patient referral [facility] Work Phone: PT ED PATIENT INFORMATION PT ED PATIENT INFORMATION Other 12/24/2019 [facility] Reagin Ab [Presence] in Serum by RPR RPR Lab Routine Missed menses Ordered: 10/23/2023 [facility] Comment on above: Ordered: 10/23/2023 Rubella antibody, IgG Rubella an tibody, IgG Lab Routine Missed menses Ordered: 10/23/2023 [facility] Comment on above: Ordered: 10/23/2023 SURESWAB(R) ADVANCED VAGINITIS PLUS, TMA SURESWAB(R) ADVANCED VAGINITIS PLUS, TMA Pathology and Cytology Routine Vaginal discharge Ordered: 12/24/2023 [facility] Work Phone: Comment on above: Ordered: 12/24/2023 [facility] Immunization Date Immunization Notes Care Provider Jorge concepcion 11-11-2022 influenza, injectabl e, quadrivalent, preservative free [facility] 11-11-2022 influenza virus vacc ine, unspecified formulation [facility] Nurse [facility] 05-07-2021 pneumococcal polysaccharide vaccine, 23 valent [facility] Nurse [facility] 10-25-2020 influenza, injectabl e, quadrivalent, preservative free Terence Pyle Work Phone: BH-Zzfuwvupsn-Mediy a 220 Work Phone: 06-09-2020 COVID-19 mRNA-3185 (Moderna) DO Ok Tyson Work Phone: [facility] 06-06-2020 Moderna COVID-19 Vac cine 100 MCG/0.5ML Intramuscular Suspension Terence Pyle Work Phone: [facility] 05-09-2020 Moderna COVID-19 Vac cine 100 MCG/0.5ML Intramuscular Suspension Terence Pyle Work Phone: KG-Phbmjtvzcr-Rmbew ands Work Phone: 10-27-2019 meningococcal B vacc ine, recombinant, OMV, adjuvanted Terence Pyle Work Phone: CL-Xumwvcjmuz-Fnpbq ands Work Phone: 10-07-2019 influenza, injectabl e, quadrivalent, preservative free [facility] Nurse [facility] 03-04-2018 influenza, injectabl e, quadrivalent, preservative free Terence Pyle Work Phone: BC-Ymzlgfhgok-Rvycs ands Work Phone: 03-04-2018 meningococcal B vacc ine, recombinant, OMV, adjuvanted Terence Pyle Work Phone: AT-Jufkufdvge-Nhqap ands Work Phone: 03-04-2018 meningococcal oligosaccharide (groups A, C, Y and W-135) diphtheria toxoid conjugate vaccine (MCV4O) Terence Pyle Work Phone: NI-Zzlfppmuip-Tmehw ands Work Phone: 10-24-2016 Human Papillomavirus 9-valent vaccine Terence Pyle Work Phone: KT-Yaidbwtcnx-Svvwb ands Work Phone: 10-02-2016 diphtheria, tetanus toxoids and acellular pertussis vaccine [facility] Nurse [facility] 09-28-2015 Human Papillomavirus 9-valent vaccine Terence Pyle Work Phone: FE-Oojbqzdmhp-Ukbtf ands Work Phone: 09-28-2015 meningococcal oligosaccharide (groups A, C, Y and W-135) diphtheria toxoid conjugate vaccine (MCV4O) Terence Pyle Work Phone: OH-Oszcociwrz-Symcg ands Work Phone: 08-26-2013 hepatitis A vaccine, pediatric/adolescent dosage, 2 dose schedule Terence Pyle Work Phone: TI-Yfusrrqerj-Vjzel ands Work Phone: 08-26-2013 tetanus toxoid, redu deisy diphtheria toxoid, and acellular pertussis vaccine, adsorbed Terence Pyle Work Phone: WH-Tbndthicca-Umkja ands Work Phone: 01-26-2009 novel Influenza-H1N1 -09, live virus for nasal administration Terence Pyle Work Phone: XD-Modladjmhy-Ovkyz ands Work Phone: 12-28-2008 novel influenza-H1N1 -09, preservative-free, injectable Terence Pyle Work Phone: IB-Rgwladfbmv-Ltjzu ands Work Phone: 10-02-2006 diphtheria, tetanus toxoids and acellular pertussis vaccine, unspecified formulation Terence Pyle Work Phone: ZL-Glyhfvvfnd-Rsvnj ands Work Phone: 10-02-2006 hepatitis A vaccine, unspecified formulation Terence Pyle Work Phone: TY-Jgiwczyxgy-Ljyhe ands Work Phone: 10-02-2006 measles, mumps and rubella virus vaccine Terence Pyle Work Phone: RP-Ozciuspxmv-Nvxdk ands Work Phone: 10-02-2006 poliovirus vaccine, inactivated Terence Pyle Work Phone: FC-Bsvargonpm-Gifho ands Work Phone: 10-02-2006 varicella virus vaccine Marito Nassarler Work Phone: VC-Bhsuibbwoi-Cibcw ands Work Phone: 06-01-2002 diphtheria, tetanus toxoids and acellular pertussis vaccine, unspecified formulation Terence Nassarler Work Phone: EB-Uvfxncnqlx-Dwxik ands Work Phone: 06-01-2002 haemophilus influenz ae type b vaccine, conjugate unspecified formulation Terence Pyle Work Phone: NJ-Cfcifxzptm-Dmkbg ands Work Phone: 06-01-2002 measles, mumps and rubella virus vaccine Terence Pyle Work Phone: CV-Ehcaxpmvsz-Gcgwn ands Work Phone: 06-01-2002 varicella virus vaccine Marito Hess Edenilson Work Phone: SA-Dioagzmejs-Kneot ands Work Phone: 2001 diphtheria, tetanus toxoids and acellular pertussis vaccine, unspecified formulation Terence Hess Pyle Work Phone: BV-Zqinmcwbhx-Tlrcx ands Work Phone: 2001 haemophilus influenz ae type b conjugate and Hepatitis B vaccine Terence Pyle Work Phone: RM-Rvxyxmrrcu-Ocqtk ands Work Phone: 2001 pneumococcal conjuga te vaccine, 7 valent Terence Pyle Work Phone: BL-Gujgsesnxa-Mgmaf ands Work Phone: 2001 poliovirus vaccine, inactivated Terence Pyle Work Phone: PD-Dxwsqgsqqd-Tilwo ands Work Phone: 2001 diphtheria, tetanus toxoids and acellular pertussis vaccine, unspecified formulation Terence Pyle Work Phone: GR-Zlmgonvkze-Alhbx ands Work Phone: 2001 haemophilus influenz ae type b vaccine, conjugate unspecified formulation Terence Nassarler Work Phone: VD-Esqhxzanoi-Iadpu ands Work Phone: 2001 pneumococcal conjuga te vaccine, 7 valent Terence Pyle Work Phone: MR-Nnkbjmxpor-Nlznw ands Work Phone: 2001 poliovirus vaccine, inactivated Terence Pyle Work Phone: NS-Kljnxcsndw-Wcmau ands Work Phone: 2001 diphtheria, tetanus toxoids and acellular pertussis vaccine, unspecified formulation Terence Pyle Work Phone: OP-Agnpmefxgb-Ilqef ands Work Phone: 2001 haemophilus influenz ae type b conjugate and Hepatitis B vaccine Terence Nassarler Work Phone: NK-Bzqkxxkqlk-Xibab ands Work Phone: 2001 poliovirus vaccine, inactivated Terence Pyle Work Phone: DM-Lrjqylgevr-Prpht ands Work Phone: 2001 hepatitis B vaccine, pediatric or pediatric/adolescent dosage Terence Jimena Edenilson Work Phone: GZ-Dgdhtvjttt-Usbos and Work Phone: Payers Date Payer Category Payer Self-pay [id number] 2022 Private Health Insurance [employer] [id number] 2022 Unknown [id number] 2022 Medicaid [id number] 2022 Medicaid [id number] 2021 Unknown 2021 Unknown [id number] 2019 Unknown MMO MMO SUPERMED PLUS [id number] 2019-Present PPO [id number] 2001 Unknown [id number] 2.16.840.1.477710.3.579.2. 356 2001 Unknown [id number] 2.16.840.1.234905.3.579.2. 727 2001 Unknown [id number] 2.16.840.1.773077.3.579.2. 1259 2001 Unknown [id number] 2.16.840.1.367801.3.579.2. 1258 2001 Unknown [id number] 2.16.840.1.283691.3.579.2. 1258 2001 Unknown [id number] 2.16.840.1.442801.3.579.2. 1258 2001 Unknown [id number] 2.16.840.1.423231.3.579.2. 1258 2001 Unknown [id number] 2.16.840.1.663026.3.579.2. 1258 2001 Unknown [id number] 2.16.840.1.497729.3.579.2. 1258 2001 Unknown [id number] 2.16.840.1.546965.3.579.2. 1258 2001 Unknown [id number] 2.16.840.1.460615.3.579.2. 1258 2001 Unknown [id number] 2.16.840.1.806068.3.579.2. 1258 2001 Unknown [id number] 2.16.840.1.969038.3.579.2. 1258 2001 Unknown [id number] 2.16.840.1.646566.3.579.2. 1258 2001 Unknown [id number] 2.16.840.1.035251.3.579.2. 1258 2001 Unknown [id number] 2.16.840.1.706849.3.579.2. 1258 2001 Unknown [id number] 2.16.840.1.176563.3.579.2. 1258 1974 Unknown [id number] 2.16.840.1.099965.3.579.2. 356 Unknown [id number] Unknown HCAP/HFA/FAP Active [id number] Unknown [id number] 2.16.840.1.028944.3.579.2. 531 Unknown [id number] 2.16.840.1.434451.3.579.2. 531 Unknown [id number] 2.16.840.1.381111.3.579.2. 531 Social History Date Type Detail Facility Assertion Unknown if ever smoked [facility] Work Phone: Start: 2001 Sex Assigned At Not on file C [facility] Exposure to SARS-CoV -2 (event) Unable to assess [facility] Start: 10-31-2022 End: 01-12-2024 Lives with parents () Lives with parents () OS-Mjhmfqgysz-Xmnwajpkr- Admin RBC 585 Work Phone: Start: 01-14-2021 End: 07-16-2022 Tobacco smoking status Never smoked tobacco (finding) [facility] Start: 10-31-2022 End: 01-12-2024 Sex Assigned At Female [facility] Other Start: 2001 Sex Assigned At Female F [facility] Tobacco Vaping [facility] Tobacco smoking status No Smokin g Status Entered [facility] Start: 07-16-2022 Tobacco use and exposure Smokeless tobacco non-user [facility] Start: 10-23-2023 End: 01-12-2024 Alcoholic beverage intake Lifetime non-drinker (finding) [facility] [...] of lumen evaluation Video capsule endoscopy system ([id number] FDA Start: 04-25-2021 Goals Date Patient Goal Desired Activity /State Personal health goal Functional Status Date Assessment Result Facility 09-20-2022 Functional status Patient at Baseline [facility] Work Phone: 11-25-2021 Functional Status N/A [facility] NEGATED: Highlighted row Functional performance Functional status health issues are not documented Disease JG-Vijtqygwsh-Pytdad nds Work Phone: Mental Status Date Assessment Result Facility 09-20-2022 Cognitive function Cognitive Sta tus Patient at Baseline [facility] Work Phone: NEGATED: Highlighted row Cognitive function [Interpretation] Cognitive status health issues are not documented Disease TK-Tpuwwtnhnw-Zfygau nds Work Phone: Clinical Notes 08-10-2020 to 02-09-2024 Rahel Molina NP - 02/09/2024 4:00 PM PAULA Mark - 01/22/2024 3:50 PM Elvia Tyson, - 01/12/2024 3:00 PM Magali Gonzalez NP - 01/02/2024 3:45 PM EST Note Date & Type Note Facility 02-09-2024 History of Presen t illness Narrative Images from the original note were not included. Subjective Patient ID: Shiv Evangelista (: 2000) is a 23 y.o. female who presents for URI. HPI History of Present Illness The patient presents for evaluation of sinusitis. She began experiencing symptoms on night or Friday morning, characterized by upper body congestion and a nonproductive cough. She also reported a low-grade fever last week, which she described as similar to her previous COVID-19 infection. Despite her symptoms, she tested negative for COVID-19. 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 She has been self-medicating with Tylenol and Robitussin. She reports feeling pressure in her ears but no soreness. She is currently 24 weeks and has missed work today due to her illness. She plans to return to work tomorrow. 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 ALLERGIES The patient is allergic to WHEAT. MEDICATIONS Current: Tylenol, Robitussin IMMUNIZATIONS She has had the COVID-19 boosters and flu shot for work. Current Outpatient Medications Medication Instructions albuterol (ProAir RespiClick) 90 mcg/act breath-activated inhaler 2 puffs, Inhalation, Every 4 hours PRN amoxicillin-clavulanate (Augmentin) 875-125 MG tablet 875 mg, Oral, 2 times daily magnesium oxide (Mag-Ox) 400 MG tablet 1 tablet, Daily ondansetron ODT (Zofran-ODT) 4 MG disintegrating tablet DISSOLVE 1 TABLET IN MOUTH EVERY 6 HOURS IF NEEDED FOR NAUSEA OR VOMITING propranolol (INDERAL) 40 mg, 2 times daily Allergies Allergen Reactions Wheat Other Reaction(s): Unknown Patient Active Problem List Diagnosis Celiac disease (CMS/[facility]) Constipation due to outlet dysfunction Current smoker Menorrhagia with irregular cycle Migraine without aura (CMS/[facility]) Mixed anxiety depressive disorder Pelvic floor dysfunction Sinus tachycardia Palpitations Wellness examination Acquired calf asymmetry Second trimester 21 weeks gestation of Review of Systems As listed in HPI Objective Vital signs: BP 118/60 (Patient Position: Sitting) Pulse 78 Resp 16 LMP 08/23/2023 Comment: Sporadic periods. SpO2 98% Physical Exam Constitutional: Appearance: She is ill-appearing. HENT: Head: Normocephalic. Right Ear: Hearing normal. A middle ear effusion is present. Tympanic membrane is bulging. Left Ear: Hearing normal. A middle ear effusion is present. Tympanic membrane is bulging. Nose: Congestion (maxillary tenderness) present. Mouth/Throat: Mouth: Mucous membranes are moist. Pharynx: Posterior oropharyngeal erythema (PND) present. Eyes: Pupils: Pupils are equal, round, and reactive to light. Cardiovascular: Rate and Rhythm: Normal rate and regular rhythm. Pulmonary: Effort: Pulmonary effort is normal. Breath sounds: Normal breath sounds. Skin: General: Skin is warm and dry. Neurological: Mental Status: She is alert and oriented to person, place, and time. Psychiatric: Mood and Affect: Mood normal. Assessment/Plan Assessment & Plan 1. Sinusitis. The patient reports upper body congestion, a low-grade fever last week, and a dry cough. She has taken Tylenol and Robitussin for symptom relief. Given her at 24 weeks, it is crucial to prescribe antibiotics that are safe for the baby. Augmentin will be prescribed, to be taken twice daily for 7 days. The prescription will be sent to [facility]. A work note has been provided for her absence today. If any unexpected results arise from the COVID-19 test, she will be contacted. Problem List Items Addressed This Visit None Visit Diagnoses Acute non-recurrent pansinusitis - Primary Relevant Medications amoxicillin-clavulanate (Augmentin) 875-125 MG tablet Fever, unspecified fever cause Relevant Orders STATUS COVID-19/FLU (Completed) Health Maintenance Topic Date Due Influenza Vaccine Completed Immunization History Administered Date(s) Administered DTaP 10/02/2016 DTaP, Unspecified 2001, 2001, 2001, 06/01/2002, 10/02/2006 HPV 9-Valent 09/28/2015, 10/24/2016 Hep A, Unspecified 10/02/2006 Hep A, ped/adol, 2 dose 08/26/2013 Hep B, Adolescent or Pediatric 2001 HiB, unspecified 2001, 06/01/2002 Hib / Hep B 2001, 2001 IPV 2001, 2001, 2001, 10/02/2006 Influenza, injectable, quadrivalent, preservative free 03/04/2018, 10/07/2019, 10/25/2020, 11/11/2022 MMR 06/01/2002, 10/02/2006 Meningococcal B, Omv 03/04/2018, 10/27/2019 Meningococcal MCV4O 09/28/2015, 03/04/2018 Moderna SARS-CoV-2 Vaccination 05/09/2020, 06/06/2020 Novel [id number], nasal 01/26/2009 Novel [id number], preservative-free 12/28/2008 Pneumococcal Conjugate PCV 7 2001, 2001 Pneumococcal Polysaccharide PPSV23 05/07/2021 SARS-COV-2 (COVID-19) vaccine, mRNA, spike protein, LNP, PF, 50 mcg/0.5 mL 09/17/2023 Tdap 08/26/2013 Varicella 06/01/2002, 10/02/2006 -Patient's chronic conditions have been reviewed in preparation for this appointment. Protocols reviewed and updated. A collaborative plan of care has been created for pt regarding specific health concerns. Any barriers to care have been identified and addressed. Any part of this document that has been added/copied from other documents has been reviewed for accuracy and updated as appropriate at the time of the patient encounter. -Follow up for Next scheduled follow-up. Rahel Molina NP documented in this encounter [facility] 01-22-2024 History of Presen t illness Narrative Reason for Appointment: Patient ID: Shiv Evangelista is a 23 y.o. female who presents for Routine Visit Patient presents today for Return OB appointment. MEDICATIONS Current Outpatient Medications Medication Instructions albuterol (ProAir RespiClick) 90 mcg/act breath-activated inhaler 2 puffs, Inhalation, Every 4 hours PRN magnesium oxide (Mag-Ox) 400 MG tablet 1 tablet, Daily ondansetron ODT (Zofran-ODT) 4 MG disintegrating tablet DISSOLVE 1 TABLET IN MOUTH EVERY 6 HOURS IF NEEDED FOR NAUSEA OR VOMITING propranolol (INDERAL) 40 mg, 2 times daily ALLERGIES Allergies Allergen Reactions Wheat Other Reaction(s): Unknown PROBLEMS Active Ambulatory Problems Diagnosis Date Noted Celiac disease (CMS/HCC) 11/01/2022 Constipation due to outlet dysfunction 02/21/2020 Current smoker 11/01/2022 Menorrhagia with irregular cycle 11/01/2022 Migraine without aura (CMS/HCC) 11/01/2022 Mixed anxiety depressive disorder 02/21/2020 Pelvic floor dysfunction 11/01/2022 Sinus tachycardia 06/18/2023 Palpitations 06/18/2023 Wellness examination 01/12/2024 Acquired calf asymmetry 01/18/2024 Second trimester 01/22/2024 21 weeks gestation of 01/22/2024 Resolved Ambulatory Problems Diagnosis Date Noted Other fatigue 02/21/2020 Right calf pain 01/18/2024 Past Medical History: Diagnosis Date Anxiety Constipation, [...] Exam Constitutional: Appearance: Normal appearance. She is normal weight. HENT: Head: Normocephalic. Cardiovascular: Rate and Rhythm: Normal rate. Pulses: Normal pulses. Pulmonary: Effort: Pulmonary effort is normal. Breath sounds: Normal breath sounds. Abdominal: Palpations: Abdomen is soft. Musculoskeletal: General: Normal range of motion. Neurological: General: No focal deficit present. Mental Status: She is alert and oriented to person, place, and time. Psychiatric: Mood and Affect: Mood normal. Behavior: Behavior normal. Thought Content: Thought content normal. Judgment: Judgment normal. Vitals and nursing note reviewed. Vitals: Estimated body mass index is 25.61 kg/m as calculated from the following: Height as of 01/12/24: 5' 2 . Weight as of 01/12/24: 140 lb. BP: Patient's last menstrual period was 08/23/2023. ASSESSMENT & PLAN ICD-10-CM 1. Second trimester Z34.92 CBC Glucose tolerance, 1 hour CBC Glucose tolerance, 1 hour 2. 21 weeks gestation of Z3A.21 CBC Glucose tolerance, 1 hour CBC Glucose tolerance, 1 hour 3. Diabetes mellitus screening Z13.1 CBC Glucose tolerance, 1 hour CBC Glucose tolerance, 1 hour Return OB: Patient presents today for a routine obstetrics appointment. Patient is currently 21w5d . Patient states she is doing well but has complaints of being tired due to current . Patient has verbalizes frequent movement. Orders Placed This Encounter Procedures CBC Glucose tolerance, 1 hour Follow Up: Patient is to return to office in 4 week for routine OB appointment. Documented by Kay Pyle LPN on behalf of: PAULA Lopez documented in this encounter [facility] 01-12-2024 History of Presen t illness Narrative Images from the original note were not included. Shiv Evangelista is a 23 y.o. female presents with chief complaint of Annual Exam HPI: HPI History of Present Illness The patient presents for evaluation of leg pain. She experienced severe leg pain two weeks ago, which was intense enough to disrupt her sleep. The pain, located in her calf, was intermittent and not related to any injury. Despite a family history of blood clots, her imaging results were normal. She was advised that dehydration might be the cause, even though she maintains a high fluid intake. She has a history of low potassium levels and suspected this might be causing cramps, but the pain did not feel like cramping. She spends most of her day on her feet and noticed some swelling and limping, which have since improved. She requested lab work to rule out other causes. She does not exercise. She reports experiencing intermittent palpitations, which she believes are alleviated by propranolol. She has consulted a inspector circuitry negative and undergone a heart monitor test, which showed no abnormalities. She had a few episodes of tachycardia, but overall, the results were satisfactory. She was prescribed propranolol 40 mg twice daily by Dr. Kang, who also suggested the possibility of future titration. She was previously on metoprolol, but due to her current (20 weeks), her OB switched her to propranolol. She also takes magnesium and Emgality injections for migraines. Her blood sugar levels are normal, and her blood count was slightly low at 11.1. She is taking vitamins. Her comprehensive metabolic panel (CMP) results were normal. She has a 14 to 31-updyl-hnu son and is currently . FAMILY HISTORY She has a family history of blood clots. HISTORIES: PAST MEDICAL HISTORY: Past Medical History: Diagnosis Date Anxiety Celiac disease (CMS/HCC) Constipation, unspecified constipation type Depression (CMS/HCC) Menorrhagia with irregular cycle Migraine without aura (CMS/HCC) Pelvic floor dysfunction SURGICAL HISTORY: Past Surgical History: Procedure Laterality Date ADENOIDECTOMY 01/01/2016 EGD 09/2020 EGD 02/2021 TONSILLECTOMY 01/01/2016 VAGINAL DELIVERY 09/18/2022 SOCIAL HISTORY: Social History Tobacco Use Smoking status: Never Smokeless tobacco: Never Vaping Use Vaping status: Never Used Substance Use Topics Alcohol use: Never Comment: caffeine intake: 1-2 cups per day; coffee Drug use: Never Depression: Not at risk (10/31/2022) PHQ-2 PHQ-2 Score: 0 FAMILY HISTORY: Family History Problem Relation Name Age of Onset Other (anxiety) Mother Shine Evangelista Hyperthyroidism Mother Shine Evangelista hyperactive thyroid Diabetes Mother Shine Evangelista Hypertension Mother Shine Evangelista Hyperlipidemia Mother Shine Evangelista Mental illness Mother Shine Evangelista No Known Problems Sister Hypertension Brother Eduardo Estrada Diabetes Maternal Grandmother Magy No Other (blood clots) Paternal Great-Grandmother MEDICATIONS: Current Outpatient Medications Medication Instructions albuterol (ProAir RespiClick) 90 mcg/act breath-activated inhaler 2 puffs, Inhalation, Every 4 hours PRN magnesium oxide (Mag-Ox) 400 MG tablet 1 tablet, Daily ondansetron ODT (Zofran-ODT) 4 MG disintegrating tablet DISSOLVE 1 TABLET IN MOUTH EVERY 6 HOURS IF NEEDED FOR NAUSEA OR VOMITING propranolol (INDERAL) 40 mg, 2 times daily ALLERGIES: Allergies Allergen Reactions Wheat Other Reaction(s): Unknown PHYSICAL EXAM: Visit Vitals BP 114/60 (BP Location: Right arm, Patient Position: Sitting) Pulse 87 Ht 5' 2 Wt 140 lb LMP 08/23/2023 Comment: Sporadic periods. SpO2 99% BMI 25.61 kg/m OB Status Smoking Status Never BSA 1.67 m BP Readings from Last 3 Encounters: 01/12/24 114/60 12/24/23 116/74 12/24/23 118/62 Wt Readings from Last 3 Encounters: 01/12/24 140 lb 01/02/24 138 lb 12/24/23 137 lb 6.4 oz Physical Exam Constitutional: Appearance: Normal appearance. Neck: Vascular: No carotid bruit. Cardiovascular: Rate and Rhythm: Normal rate and regular rhythm. Pulmonary: Effort: Pulmonary effort is normal. Breath sounds: Normal breath sounds. Abdominal: General: Bowel sounds are normal. Palpations: Abdomen is soft. Musculoskeletal: General: No swelling. Comments: Calves are very well developed, muscular ( out of proportion to her degree of working out-which she does not do) POCUS vasc of the right calf shows complete collapsability of superficial and deep veins No abnl in popliteal fossa Right calf slightly larger then left Neurological: Comments: normal Psychiatric: Mood and Affect: Mood and affect normal. Physical Exam Results Laboratory Studies Blood count was a little low at 11.1. Blood sugar was 78. ASSESSMENT AND PLAN: Assessment & Plan Wellness visit See below. 1. Palpitations. She reports occasional palpitations but feels that propranolol has been helpful. She was seen by Dr. Kang, who adjusted her propranolol dosage to 40 mg twice a day. She is currently 20 weeks , and her OB confirmed that propranolol is safe for her during and . She will continue with propranolol 40 mg twice a day. 2. Leg pain. POCUS vasc/MSKUS right lower leg normal. She experienced excruciating leg pain two weeks ago, which led her to visit urgent care. An ultrasound was performed at that time which showed no DVT. 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 Her lab results indicated slightly low protein and blood count. The pain has improved but still comes and goes. She will continue to monitor her symptoms and stay hydrated. If the pain persists, further evaluation may be necessary. 3. Migraines. She has been using magnesium for her migraines but is unsure of its effectiveness. She has not had to use it frequently. She will continue with magnesium as needed for migraine relief. 4. Anemia. Her blood count was slightly low at 11.1. She is currently taking vitamins . I suggested OTC fish oil which there is data for benefit in reducing ADD , especially in boys. She will continue with these supplements to help manage her anemia. Diagnosis Plan 1. Wellness examination 2. Right leg pain 3. Celiac disease (CMS/HCC) Stable. This visit was completed by the assistance of LIT Vinson. documented in this encounter [facility] 01-02-2024 History of Presen t illness Narrative [...] lab work and it was ordered to [facility]. Tylenol for pain as she is and cannot take anything else. Perform calf stretches and follow up with POTATO PICKER if no improvement. She expressed an understanding. - Vascular US lower extremity venous duplex left; Future - HEMOGRAM CBC WITHOUT DIFF ([facility]); Future - Comprehensive metabolic panel; Future 2. Swelling of calf See above. - Vascular US lower extremity venous duplex left; Future - HEMOGRAM CBC WITHOUT DIFF ([facility]); Future - Comprehensive metabolic panel; Future FINDINGS: [...] left lower extremity. documented in this encounter [facility] 12-24-2023 History of Presen t illness Narrative Reason for Appointment: Patient ID: Shiv Evangelista is a 23 y.o. female who presents for Well Women Visit, Routine Visit, and STI Screening Patient presents today for Annual Exam. Current Medications: has a current medication list which includes the following prescription(s): albuterol, magnesium oxide, ondansetron odt, and propranolol. Medical History: Active Ambulatory Problems Diagnosis Date Noted Celiac disease (CMS/HCC) 11/01/2022 Constipation due to outlet dysfunction 02/21/2020 Current smoker 11/01/2022 Menorrhagia with irregular cycle 11/01/2022 Migraine without aura (CMS/HCC) 11/01/2022 Mixed anxiety depressive disorder 02/21/2020 Other fatigue 02/21/2020 Pelvic floor dysfunction 11/01/2022 Sinus tachycardia 06/18/2023 Palpitations 06/18/2023 Wellness examination 01/12/2024 Right leg pain 01/12/2024 Resolved Ambulatory Problems Diagnosis Date Noted No Resolved Ambulatory Problems Past Medical History: Diagnosis Date Anxiety Constipation, unspecified constipation type Depression (CMS/HCC) Family History Problem Relation Name Age of Onset Other (anxiety) Mother Shine Evangelista Hyperthyroidism Mother Shine Evangelista hyperactive thyroid Diabetes Mother Shine Evangelista Hypertension Mother Shine Evangelista Hyperlipidemia Mother Shine Evangelista Mental illness Mother Shine Evangelista No Known Problems Sister Hypertension Brother Eduardo Estrada Diabetes Maternal Grandmother Magy No Other (blood clots) Paternal Great-Grandmother Social History Tobacco Use Smoking status: Never Smokeless tobacco: Never Vaping Use Vaping status: Never Used Substance Use Topics Alcohol use: Never Comment: caffeine intake: 1-2 cups per day; coffee Drug use: Never Past Surgical History: Procedure Laterality Date ADENOIDECTOMY 01/01/2016 EGD 09/2020 EGD 02/2021 TONSILLECTOMY 01/01/2016 VAGINAL DELIVERY 09/18/2022 Allergies Allergen Reactions Wheat Other Reaction(s): Unknown Review of Systems: Review of Systems All other systems reviewed and are negative. Objective Physical Exam Constitutional: Appearance: Normal appearance. She is well-developed. Genitourinary: Vulva normal. Cardiovascular: Rate and Rhythm: Normal rate and [...] nursing note reviewed. Exam conducted with a correctional case manager present. Vitals: Estimated body mass index is 25.13 kg/m as calculated from the following: Height as of 08/06/23: 5' 2 . Weight as of this encounter: 137 lb 6.4 oz. BP: 116/74 Patient's last menstrual period was 08/23/2023. Assessment/Plan Encounter Diagnosis: ICD-10-CM 1. Well woman exam with routine gynecological exam Z01.419 Pap Smear 2. Second trimester Z34.92 POCT urinalysis dipstick manually resulted Alpha fetoprotein, maternal Alpha fetoprotein, maternal 3. 17 weeks gestation of Z3A.17 POCT urinalysis dipstick manually resulted Alpha fetoprotein, maternal Alpha fetoprotein, maternal 4. Vaginal discharge N89.8 SURESWAB(R) ADVANCED VAGINITIS PLUS, TMA 5. STD exposure Z20.2 CHLAMYDIA TRACHOMATIS (GENITO/STI) Neisseria gonorrhea DNA probe, direct 6. Screening, , for anatomic survey Z36.89 US OB ANATOMY SINGLE W US OB CERVICAL LENGTH 7. Upper respiratory tract infection, unspecified type J06.9 albuterol (ProAir RespiClick) 90 mcg/act breath-activated inhaler Annual Exam: Patient presents today for an annual exam. Patient states she is doing well and has no complaints. Pap was obtained without difficulty. Orders Placed This Encounter Procedures US OB ANATOMY SINGLE W US OB CERVICAL LENGTH CHLAMYDIA TRACHOMATIS (GENITO/STI) Neisseria gonorrhea DNA probe, direct Alpha fetoprotein, maternal POCT urinalysis dipstick manually resulted Follow Up: Patient is to return in one year for annual unless needed otherwise. documented in this encounter [facility] 12-24-2023 History of Presen t illness Narrative HPI: [...] See 1 . documented in this encounter [facility] 11-25-2023 History of Presen t illness Narrative [...] Hypertension Brother Eduardo Estrada Diabetes Maternal Grandmother Magykhadijah No Other (blood clots) Paternal Great-Grandmother SURGICAL [...] nursing note reviewed. Exam conducted with a correctional case manager present. Vitals: Estimated body mass index is [...] or undercooked meat, and stay away from [facility]. Patient has been consulted regarding any further do's and don'ts of . Patient voiced understanding and all questions and concerns were answered. Orders Placed This Encounter Procedures POCT urinalysis dipstick manually resulted Follow Up: Patient is to return in 4 weeks for routine OB appointment. Documented by Helene Thorne LPN on behalf of: Navid Cantu DO documented in this encounter [facility] 10-23-2023 History of Presen t illness Narrative Reason for Appointment: Patient ID: Shiv Evangelista is a 23 y.o. female who presents for Amenorrhea Patient presents today for a Nurse OB Intake appointment. Patient is 8w5d with a Estimated Date of Delivery: 05/29/24 OB History Para Term AB Living 2 1 1 0 0 1 SAB IAB Ectopic Multiple Live Births 0 0 0 0 1 # Outcome Date GA Lbr Keny/2nd Weight Sex Type Anes PTL Lv 2 Current 1 Term 09/18/22 38w3d 8 lb 13 oz M Vag-Forceps EPI KHADIJAH Obstetric Comments Pap 03/12/22- Neg Current Medications: has a current medication list which includes the following prescription(s): emgality and propranolol la. Medical History: Active Ambulatory Problems Diagnosis Date Noted Celiac [...] Anxiety Constipation, unspecified constipation type Depression (CMS/HCC) Family History Problem Relation Name Age of Onset Other (anxiety) Mother Shine Evangelista Hyperthyroidism Mother Shine Evangelista hyperactive thyroid Diabetes Mother Shine Evangelista Hypertension Mother Mandolin Evangelista Hyperlipidemia Mother Shine Evangelista Mental illness Mother Shine Evangelista No Known Problems Sister Hypertension Brother Eduardo Estrada Diabetes Maternal Grandmother Magy No Other (blood clots) Paternal Great-Grandmother Social History Tobacco Use Smoking status: Never Smokeless tobacco: Never Vaping Use Vaping status: Never Used Substance Use Topics Alcohol use: Never Comment: caffeine intake: 1-2 cups per day; coffee Drug use: Never Past Surgical History: Procedure Laterality Date ADENOIDECTOMY 01/01/2016 EGD 09/2020 EGD 02/2021 TONSILLECTOMY 01/01/2016 VAGINAL DELIVERY 09/18/2022 Allergies Allergen Reactions Wheat Other Reaction(s): Unknown Vitals: Estimated body mass index is 24.4 kg/m as calculated from the following: Height as of 08/06/23: 5' 2 . Weight as of this encounter: 133 lb 6.4 oz. BP: 120/70 Patient's last menstrual period was 08/23/2023. Assessment/Plan Diagnoses and all orders for this visit: Missed menses - Type and screen; Future - ABO/Rh; Future - CBC and differential - Hemoglobin A1c - RPR - Rubella antibody, IgG - Hepatitis B surface antigen - Hepatitis C antibody - HIV-1 and HIV-2 antibodies - Urine culture - US OB transvaginal; Future - POCT , urine manually resulted - POCT urinalysis dipstick manually resulted Encounter for supervision of normal first in first trimester - Rapid drug screen, urine; Future , unspecified gestational age - Rapid drug screen, urine; Future Migraine without aura and without status migrainosus, not intractable ([facility]) Nurse Note: OB Intake: Patient presents today for first OB visit. Patients history has been reviewed in great detail including any potential risks. Patient signed consent forms and patient desires testing in both trimesters. Patient currently has no complaints and has been advised to drink 6-8 glasses of water a day, eat no raw or undercooked meat, and stay away from [facility]. Patient has also been advised to not change litter boxes and eat 6 small meals a day. Patient has been consulted regarding the do's and don'ts of . Patient was given labs and all questions and concerns were answered. Patient was asking about taking the Emgality she ws advised we would sent in the Magnesium Oxide for her and advised Propanolol is not recommended and he will use Labetalol or Procardia. Patient will follow with PCP as she does take this for heart rate. Follow Up: Patient is to return in 4 weeks for routine OB appointment. Follow Up: Patient is to have labs drawn at directed and return to office for initial OB appointment with provider. Patient may call office as needed with any concerns or questions. Nurse Visit Completed by: Beti Mcbride LPN documented in this encounter [facility] 09-20-2022 Progress note Note Date/Time September 20, 2022 8:51am [facility] [address] [place] [address] POTATO PICKER Progress Note Signed Patient: Shiv Evangelista MR#: [id number] : 2000 Acct:[id number] Age/Sex: 22 / F Adm Date: 3 Loc: 3S Room: [address] [place] [address] Type: ADM IN Attending Dr: Yuval Pete [...] well controlled, tolerating diet and flatus present [place] baby status: doing well [place] feeding status: exclusively breast feeding OB - [...] % (Auto) 81.0, Lymph % (Auto) 8.5, [place] % (Auto) 10.2, Eos % (Auto) 0.1, Baso % (Auto) 0.2, Nucleat RBC Rel Count 0.0, Neut # (Auto) 11.5 H, Lymph # (Auto) 1.2, [place] # (Auto) 1.5 H, Eos # (Auto) [...] <Electronically signed by GAL Abraham> 09/20/22 [address] [facility] Work Phone: 1(626) 331-401108-10-2023 Progress note Author QUIN AVENDAÑO [facility] September 19, 2022 11:03am Note Date/Time September 19, 2022 11 :03am [facility] [address] [place] [address] POTATO PICKER Progress Note Signed Patient: Shiv Evangelista MR#: [id number] : 2000 Acct:[id number] Age/Sex: 22 / F Adm Date: 3 Loc: 3S Room: [address] [place] [address] Type: ADM IN Attending Dr: Yuval Pete [...] headache, or vision changes); no flatus present [place] baby status: doing well feeding status: pumping and storing OB - [...] % (Auto) 77.8, Lymph % (Auto) 11.8, [place] % (Auto) 9.3, Eos % (Auto) 0.5, Baso % (Auto) 0.6, Nucleat RBC Rel Count 0.1, Neut# (Auto) 8.0 H, Lymph # (Auto) 1.2, [place] # (Auto) 1.0 H, Eos # (Auto) 0.1, Baso # (Auto) 0.1 09/18/22 08:20: Urine Opiates Screen Negative, Ur Barbiturates Screen Negative, Ur Phencyclidine Scrn Negative, Ur Amphetamines Screen Negative, U Benzodiazepines Scrn Negative, Urine Cocaine Screen Negative 09/18/22 08:20: Urine Color Yellow, Urine Appearance Cloudy A, Urine pH 7.0, Ur Specific [place] 1.004, Urine Protein Negative, Urine Glucose (UA) [...] signed by QUIN AVENDAÑO DO> 09/19/22 [address] [facility] Work Phone: 1(277) 924-616808-09-2023 History and physical note Author YUVAL PETE [facility] September 18, 2022 9:22pm Note Date/Time September 18, 2022 9:2 2pm [facility] [address] [place] [address] POTATO PICKER History & Physical Signed Patient: Shiv Evangelista MR#: [id number] : 2000 Acct:[id number] Age/Sex: 22 / F Adm Date: 3 Loc: Room: [address] [place] [address] Type: ADM IN Attending Dr: Yuval Pete MD Copies to: MD Ok BOYD DO~ Date of Service: 09/18/2022 HPI History of Present Illness Chief complaint: I'm cramping HPI: Pt is a healthy primigravida at term. She presents to L+D complaining of contractions. After a period of observation, she was found to be in early laborand admitted in anticipation of delivery OB [facility] Medical History (Updated 09/18/22 @ 21:22 by Yuval Pete MD) Anxiety Celiac disease Depression Migraines Surgical History (Updated 09/18/22 @ 15:53 by Mariangel Miller RN) Hx of tonsillectomy [place] teeth removed POTATO PICKER Hx : 1 Para: 0 : 0 [...] (Verified 09/18/22 08:27) Abdominal Pain Home Medications hamrzycs-cnb-Nb-FA 1 mg tablet tab PO 09/18/22 [History] Active Medications Carboprost Tromethamine (Carboprost Tromethamine 250 Mcg/Ml Vial) 250 mcg IM PRN PRN PRN Reason: Bleeding Stop: 09/19/22 14:14 Lactated Ringer's (Lactated Ringers) 1,000 mls @ 150 mls/hr IV .Q6H40M [facility] Stop: 09/18/23 14:14 Last Admin: 09/18/22 16:10 Dose: 150 mls/hr Oxytocin (Pitocin/Lr) 30 unit in 500 mls @ 2 mls/hr IV .Q24H [facility]; Protocol Stop: 09/18/23 14:14 Last Titration: [...] % (Auto) 77.8, Lymph % (Auto) 11.8, [place] % (Auto) 9.3, Eos % (Auto) 0.5, Baso % (Auto) 0.6, Nucleat RBC Rel Count 0.1, Neut # (Auto) 8.0 H, Lymph # (Auto) 1.2, [place] # (Auto) 1.0 H, Eos # (Auto) 0.1, Baso # (Auto) 0.1 09/18/22 08:20: Urine Opiates Screen Negative, Ur Barbiturates Screen Negative, Ur Phencyclidine Scrn Negative, Ur Amphetamines Screen Negative, U Benzodiazepines Scrn Negative, Urine Cocaine Screen Negative 09/18/22 08:20: Urine Color Yellow, Urine Appearance Cloudy A, Urine pH 7.0, Ur Specific [place] 1.004, Urine Protein Negative, Urine Glucose (UA) [...] <Electronically signed by MD YUVAL PETE> 09/18/222121 [facility] Work Phone: 1(841) 837-640008-09-2023 [facility] Discharge instructions Patient Education 11/25/2021 23:47:17 [...] Follow these instructions at home: Medicines Take lgsg-fpw-ovofdbp and prescription medicines only as told by your health care provider. Ask your health care provider if the medicine prescribed to you: ?Requires you to avoid driving or using heavy machinery. ?Can cause constipation. You may need to take these actions to prevent or treat constipation: ?Drink enough fluid to keep your urine pale yellow. ?Take mhoy-yko-heedide or prescription medicines. ?Eat foods that are [...] 01/27/2006 Document Revised: 05/21/2019 Document Reviewed: 03/11/2019 RFEyeD Patient Education 2019 [employer]. Follow Up Care 11/25/2021 18:58:56 With:OK TYSON Address: [facility]. [address] , [place] [address] [place] [address] Business (1) When:Within 3 Day(s) [facility]10-16-2022 Evaluation + Plan noteExtracted from: Title:ED Note [...] 22:06:00 EDT, mL/hr, Infuse over 61, minute(s) [facility]08-29-2022 NoteHNO ID: [id number] Author: Lynn Potts PT Service: ? Author Type: Physical Therapist Type: Progress Notes Filed: 10/08/2021 12:15 PM Note Text: 10/08/2021 [facility] PHYSICAL THERAPY DISCONTINUANCE OF CARE Plan of Care Period: Start of Care Date: 11/09/20 Last Visit Date: 11/13/2020 Therapy Program: The following is a summary of the interventions provided for this episode of care; Therapeutic exercise, Neuromuscular re-education, Manual therapy, Therapeutic activities, Self-shelter management, and Patient/Family/Caregiver Education Assessment: Based on [...] or scheduled additional follow-up appointments. Lynn Potts [facility]05-24-2022 Evaluation note* Encounter Date Diagnosis Assessment Notes Treatment Notes Treatment Clinical Notes June, Small intestinal bacterial overgrowth (SIBO) (ICD-10 - K63.89) [email or web address] Other 05-02-2022 Evaluation note* Encounter Date Diagnosis Assessment Notes Treatment Notes Treatment Clinical Notes June, Small intestinal bacterial overgrowth (SIBO) (ICD-10 - K63.89) [facility] Other 04-08-2022 Hospital Discharge instructions Patient Education [...] hospital. Follow these instructions at home: Take kpxm-mdu-tvsywvx and prescription medicines only as told by [...] cantaloupe, kiwi, oranges, tomatoes, asparagus, and potatoes. ?[place] juice. ?Tomato juice. ?Red meats. ?Yogurt. Keep [...] 01/27/2006 Document Revised: 09/09/2018 Document Reviewed: 09/09/2018 RFEyeD Patient Education 2020 [employer] 05/17/2021 22:58:45 Abnormal Uterine Bleeding, Aozi-hi-Qnpz Abnormal Uterine Bleeding Abnormal uterine bleeding means [...] 11/24/2009 Document Revised: 01/21/2017 Document Reviewed: 01/21/2017 RFEyeD Patient Education 2020 [employer] Follow Up Care 05/17/2021 20:46:59 With:Sirisha MURPHY, ALICIA Bills Address: [address], [address] [place] [address]- When:2 to 4 days With:TERENCE PYLE MD Address: [address] [place] [address]- When:05/20/2021 [facility]04-07-2022 Evaluation + Plan noteExtracted from: Title:ED Note Author:Mariana Steinberg PA-C Date :05/17/21 1. Dysfunctional uterine ble eding (N93.8: Other specified abnormal uterine and vaginal bleeding) Ordered: meclofenamate, 100 mg = 1 cap(s), Oral, TID, X 5 day(s), # 15 cap(s), Refills(s) 0, Pharmacy: [facility] [id number] [facility], 157.5, cm, 05/17/21 20:52:00 EDT, Height/Length Dosing, 47.8, kg, 05/17/21 20:52:00 EDT, Weight Dosing 2. Hypokalemia (E87.6: Hypokalemia) Ordered: meclofenamate, 100 mg = 1 cap(s), Oral, TID, X 5 day(s), # 15 cap(s), Refills(s) 0, Pharmacy: [facility] [id number] [facility], 157.5, cm, 05/17/21 20:52:00 EDT, [...] Diagnostic Tests Pending * Urine Culture 05/17/21 [facility]03-18-2022 Evaluation note* Encounter Date Diagnosis Assessment Notes Treatment Notes Treatment Clinical Notes Apr, Abdominal pain (ICD-10 - R10.9) [facility] Other 02-23-2022 Evaluation note* Encounter Date Diagnosis [...] to pass out, go to the ER. [email or web address] Other 02-10-2022 Chief complaint Narrative - Reported* [...] Follow up migraines * Accompanied by alone. HZ-Qczsymnsez-Lkotgv 220 Work Phone: [phone] 544-701302-10-2022 Chief complaint Narrative - Reported* An interactive [...] Follow up migraines * Accompanied by alone. 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 * She has also been [...] and she just started on 5 mgTID. 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 * She has also been [...] and she just started on 5 mgTID. 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 Jones Feb, Constipation (ICD-10 - K59.00) Increase Linzess to 145mcg daily [facility] Other 01-06-2022 Evaluation note* Encounter Date Diagnosis Assessment Notes Treatment Notes Treatment Clinical Notes Feb, Small intestinal bacterial overgrowth (SIBO) (ICD-10 - K63.89) [facility] Other 01-03-2022 Evaluation note* Encounter Date Diagnosis [...] Patient care instructions given in writting by [facility] Care At Home document [email or web address] Other 11-04-2021 Evaluation note* Encounter Date Diagnosis Assessment Notes Treatment Notes Treatment Clinical Notes Dec, Celiac disease/sprue (ICD-10 - K90.0) Dec, Constipation (ICD-10 - K59.00) Dec, Other Summary of Visit: (A) Low Fructose Nutriiton Therapy (B) Reviewed Gluten Free Nutrition Therapy (C) Log food and symptoms [facility] Other 11-03-2021 Evaluation note* Encounter Date Diagnosis [...] Patient care instructions given in writting by [facility] Care At Home document. [facility] Other 10-10-2021 Evaluation note* Encounter Date Diagnosis [...] Patient care instructions given in writting by [facility] Care At Home document. [facility] Other 10-04-2021 NoteHNO ID: [id number] Author: Lynn Potts PT Service: ? Author [...] and untimed codes) : 46 Lynn Potts [facility]09-30-2021 NoteHNO ID: [id number] Author: Alexandra Suarez, PT Service: ? Author [...] Planned: 8 Planned Treatment Interventions: Therapeutic exercise (37029);Neuromuscular re-education (84466);Manual therapy (40149);Therapeutic activities (37544);Self-shelter management (63379);Patient/Family/Caregiver Education;Biofeedback Pelvic (75623,36642) PLAN FOR NEXT VISIT: toileting positions, colon [...] movement Bowel [facility] (more content not included)...[facility] Evaluation note* Encounter Date Diagnosis Assessment Notes Treatment Notes Treatment Clinical Notes Oct, Celiac disease/sprue (ICD-10 - K90.0) Celiac disease material was printed BEEN FOLLOWING GLUTEN FREE DIET. BREATH TESTING IS ORDERED AND SCHEDULED IN [place] Oct, Constipation (ICD-10 - K59.00) IS STILL TAKING THE MIRALAX AND LINZESS. PATIENT ENCOURAGED HOW TO USE MIRALAX MUCH SHE DOES NEED TO. ENCOURAGED TO GET UP AND MOVE SO BOWELS MOVE ALSO. STOP AMITRIPTYLINE AND START THE LEVSIN Oct, Nausea (ICD-10 - R11.0) [facility] Other 07-01-2021 History of Present illness Narrative* Shiv is a 20 year old young woman with POTS, anxiety and headaches. She is taking 2 summer courses. [facility] and is taking her courses through [employer] [facility]. * She stopped all her meds [...] as well. * She still works at [employer]. * She denies any thoughts about hurting herself unless she is having a panic attack. * She has been having more issues with dizziness. PI-Xsgoncyalg-Arbbnvwxy Work Phone: Evaluation noteNo InformationNort [employer] Other Evaluation noteNo assessment information available [facility] Work Phone: Evaluation note* Diagnosis Onset Date Resolution Status 38 weeks gestation of acute Status post vaginal delivery acute [facility] Work Phone: Evaluation note* Diagnosis Onset Date Resolution Status Anxiety acute Celiac disease acute POTS (postural orthostatic tachycardia syndrome) acute [facility] Work Phone: Evaluation note* Diagnosis Second trimester state, incidental 13 weeks gestation of documented [facility] Diagnosis Acute bronchitis, unspecified organism- Primary Acute cough Exposure to pneumonia 18 weeks gestation of documented [facility]* Diagnosis Pain of left calf- Primary Swelling of calf Pain of left calf Swelling of calf documented [facility]* Diagnosis Well woman exam with routine gynecological exam Routine gynecological examination Second trimester state, incidental 17 weeks gestation of Vaginal discharge Leukorrhea, not specified as infective STD exposure Screening, , for anatomic survey Encounter for anatomic survey Upper respiratory tract infection, unspecified type [facility]* Diagnosis Wellness examination- Primary Right leg pain Pain in soft tissues of limb Celiac disease (CMS/HCC) Celiac disease Acquired right calf asymmetry [facility] Diagnosis Missed menses Encounter for supervision of normal first in first trimester , unspecified gestational age Migraine without aura and without status migrainosus, not intractable (CMS/HCC) Nausea Nausea alone [facility]* Diagnosis Second trimester state, incidental 21 weeks gestation of Diabetes mellitus screening Screening for diabetes mellitus documented [facility]* Diagnosis Acute non-recurrent pansinusitis- Primary Fever, unspecified fever cause documented in this encounter [facility] Narrative - Reported* Type Description Date Medical History anxiety Medical History celiac Medical History migraine headache Medical History [employer] Other History general Narrative - Reported* Type Description Date Medical History anxiety Medical History celiac disease Medical History migraine headache Medical History [employer] Other Hislypv general Narrative - ReportedNofreeman [facility] system [employer] Other History of Present illness Narrative* This visit was completed via phone or Doxy.mt due to the restrictions of the COVID-19 [...] has been having more issues with dizziness. MP-Iomsimvlsc-Whigrq 220 Work Phone: History of Present illness [...] has been having more issues with dizziness. UM-Ahdflvvrpr-Ogcvslxfj-Admin RBC 585 Work Phone: Hospital course Narrative No data available for this section [facility] Additional Instructions Try to rest today and stay off your feet. Take tylenol as needed.[facility] Work Phone: Instructions* Name Dates Details Instructions not documented CA-Bwtfunbogp-Sodntsbp 1600 Work Phone: Instructions* Name Dates Details Instructions not documented XN-Vxdbduyxkw-Muacnymp-Admin RBC 585 Work Phone: progress note No data available for this section [facility] Family History No Family History Records Found [...] [facility] Referred Provider Mike Jones Referred Address ,[place], [place],[address] Referred Provider Specialty Immunology Referral Priority Routine [...] R00.[address] requested by Rachel Fatima ROD TAPE OPERATOR Chief Complaint R00.[address] requested by Rachel Fatima ROD TAPE OPERATOR Reason for Visit Anxiety Celiac disease POTS (postural orthostatic tachycardia syndrome) Additional Source Comments Source Comments (unrecognize d section and content) In the event this informatio n is protected by the Federal Confidentiality of Alcohol and Drug Abuse Patient Records regulations: The Federal rules restrict any use of the information to criminally investigate or prosecute any alcohol or drug abuse patient.[facility] the event this information is protected by the Federal Confidentiality of Alcohol and Drug Abuse Patient Records regulations: The Federal rules restrict any use of the information to criminally investigate or prosecute any alcohol or drug abuse patient.[facility] INFORMATION SOURCE (unrecogn ized section and content) DATE CREATED AUTHOR 01/17/2020 [facility] DATE CREATED AUTHOR AUTHOR'S ORGANIZ ATION 06/08/2021 [employer] DATE CREATED AUTHOR AUTHOR'S ORGANIZ ATION 06/23/2021 [facility] dical Specialist DATE CREATED AUTHOR AUTHOR'S ORGANIZ ATION 10/09/2021 [facility] DATE CREATED AUTHOR AUTHOR'S ORGANIZ ATION 01/07/2022 [facility] DATE CREATED AUTHOR AUTHOR'S ORGANIZ ATION 11/16/2022 [facility] DATE CREATED AUTHOR AUTHOR'S ORGANIZ ATION 01/06/2024 [facility] DATE CREATED AUTHOR AUTHOR'S ORGANIZ ATION 02/20/2024 [facility] dical Specialists EPIC REASON FOR VISIT (unrecogniz ed section and content) Reason Comments Routine Visit Reason Comments Well Women Visit Routine Visit STI Screening Reason Comments Annual Exam Reason Comments Amenorrhea Reason Comments URI Care Teams (unrecognized sec tion and content) Team Status: Inactive Member Role Status Dates Ok Tyson DO Primary Care Provider, Attending Lou mena Active Team Status: Active Member Role Status Dates Ok Tyson DO Primary Care Provider Active Team Status: Inactive Member Role Status Dates Ok Tyson DO Primary Care Provider Active Terence Garcia DO Attending Provider Active Team Status: Inactive [...] July 04, 2023 End: July 04, 2023 Process Area Supervisor Relationship Specialty Start Date End Date Ok Tyson DO [address] [place] [address] PCP - General Internal Medicine 07/19/22 Luis Antonio Blas DO [address] [place] [address] PCP - Medical [employer] 03/13/22 02/09/99 Process Area Supervisor Relationship Specialty Start Date End Date Ok Tyson DO [address] [place] [address] PCP - General Internal Medicine 07/19/22 Luis Antonio Blas DO [address] [place] [address] PCP - Medical [employer] 03/13/22 02/09/99 Process Area Supervisor Relationship Specialty Start Date End Date Ok Tyson DO [address] [place] [address] PCP - General Internal Medicine 07/19/22 Luis Antonio Blas DO [address] [place] [address] PCP - Medical [employer] 03/13/22 02/09/99 Process Area Supervisor Relationship Specialty Start Date End Date Ok Tyson DO [address] [place] [address] PCP - General Internal Medicine 07/19/22 Luis Antonio Blas DO [address] [place] [address] PCP - Medical [employer] 03/13/22 02/09/99 Process Area Supervisor Relationship Specialty Start Date End Date Ok Tyson DO [address] [place] [address] PCP - General Internal Medicine 07/19/22 Luis Antonio Blas DO [address] [place] [address] PCP - Medical [employer] 03/13/22 02/09/99 Process Area Supervisor Relationship Specialty Start Date End Date Ok Tyson DO [address] [place] [address] PCP - General Internal Medicine 07/19/22 Luis Antonio Blas DO [address] [place] [address] PCP - Medical [employer] 03/13/22 02/09/99 Process Area Supervisor Relationship Specialty Start Date End Date Ok Tyson DO [address] [place] [address] PCP - General Internal Medicine 07/19/22 Ok Tyson, [address] [place] [address] PCP - Medical [employer] 03/13/22 02/09/99 Process Area Supervisor Relationship Specialty Start Date End Date Ok Tyson, DO [address] [place] [address] PCP - General Internal Medicine 07/19/22 Luis Antonio Blas, DO [address] [place] [address] PCP - [facility] 03/13/22 01/22/24 Process Area Supervisor Relationship Specialty Start Date End Date Ok Tyson, DO [address] [place] [address] PCP - General Internal Medicine 07/19/22 Luis Antonio Blas, DO [address] [place] [address] PCP - [facility] 03/13/22 02/09/99 Process Area Supervisor Relationship Specialty Start Date End Date Ok Tyson, DO [address] [place] [address] PCP - General Internal Medicine 07/19/22 Goals (unrecognized section and content) Goals may [...] BE BASED ON THE PRIMARY CLINICAL RECORDS. [employer] [facility]. provides no warranty or guarantee of the accuracy or completeness of information in this document.
[2024-02-21 12:10] LABS: Basophils Percent Auto 0.6 % (0.2-2.0); Eosinophils Absolute Auto 0.1 10^3/uL (0.0-0.7); Eosinophils Percent Auto 1.4 % (0.9-7.0); Hematocrit 31.2 % (36.0-48.0); Hemoglobin 10.5 g/dL (12.0-16.0); Immature Granulocytes Abs Auto 0.13 10^3/uL (0.00-0.03); Immature Granulocytes Pct Auto 1.8 % (0.0-0.5); Lymphocytes Absolute Auto 1.2 10^3/uL (1.2-3.8); Lymphocytes Percent Auto 17.1 % (20.5-60.0); Mean Corpuscular HGB Conc 33.7 g/dL (29.9-35.2); Mean Corpuscular Hemoglobin 31.5 pg (26.7-34.0); Mean Corpuscular Volume 93.7 fL (81.0-99.0); Mean Platelet Volume 9.8 fL (9.5-13.5); Monocytes Absolute Auto 0.5 10^3/uL (0.3-0.8); Monocytes Percent Auto 6.6 % (1.7-12.0); Neutrophils Absolute Auto 5.3 10^3/uL (1.4-6.5); Neutrophils Percent Auto 72.5 % (43.0-75.0); Platelet Count 194 10^3/uL (150-450); Red Blood Count 3.33 10^6/uL (4.20-5.40); Red Cell Distribution Width 12.3 % (11.0-15.0); White Blood Count 7.3 10^3/uL (4.0-11.0)
[2024-02-21 12:20] LABS: Glucose 1 Hour 135 mg/dL (<130)
== END 2024-02-21 10:48 | disposition home or self-care (01) ==
LOC: LAB 10:47
PROVIDERS: PCP Internal Medicine; Visit Provider Physician Assistant
DX: Z34.92 Encounter for supervision of normal pregnancy, unspecified, second trimester (principal)
CPT/HCPCS: 36415; 82950; 85025

== ENCOUNTER 2024-03-06 08:03 | Outpatient (OUT) | payer MEDICAID, SELFPAY ==
--- OUTSIDE RECORDS SUMMARY | 2024-03-06 08:06 | XMS_ITS | CCD ---
Author Organization [facility] CliniSymn Care Team Providers Care Dormitory Supervisor Name Role Phone Chica Whitmore Unavailable Unavailable Terence Pyle Unavailable Unavailable Nataprawira, Avani Unavailable Unavailable Chica Whitmore Unavailable Unavailable Al Bustillo Unavailable Unavailable Terence Pyle Primary Care Provider Pankaj Berger Unavailable Haim PENSION CONSULTANT-STUDENT SUCCESS COUNSELOR, PENSION CONSULTANT-CONSUMER ATTORNEYChica Unavailable Unavailable Terence Pyle Unavailable Unavailable Nataprawira, Avani Unavailable Unavailable Chica Whitmore Unavailable Unavailable Al Bustillo Unavailable Unavailable Terence Pyle Unavailable Unavailable Unavailable Chica Whitmore Unavailable Unavailable OK TYSON Primary Care Physician [phone] Pankaj Berger Unavailable Albert White Unavailable Chacho Domingo Unavailable Laura Day Unavailable Brenda Armstrong Unavailable DO Ok Tyson Primary Care Provider DO Ok Tyson Attending Provider [phone] Terence Pyle Primary Care Unavailabl e Self, Referral Referring Unavailable Ms. Chica Whitmore Attending UnavailTerence Munoz Primary Care Unavailemre e Ms. Chica Whitmore Attending UnavailDO Ok Rizzo Primary Care Provider [phone] DO Terence Tolentino Attending Provider DO Chica Newman Attending Provider MD Yuval Pete Admit Provider MD Yuval Pete Attending Provider [phone] MD Belkys Kingh Attending Provider [phone] Rayray Aquino Attending Unavailable DO Ok Tyson Primary Care Provider [phone] JOSE Molina Attending Provider MD Artur Kang Attending Provider Ok Tyson DO Primary Care Provider Luis Antonio Blas DO Unavailable Artur Kang Attending Roni Ok Mckinney Primary Care Unavailable Artur Kang Admitting Unavai delmi DidRahel escalante Admitting Unavailable Rahel Molina Attending Unavailable Ok Tyson [facility] Unavailable Yaritza Gonzalez Admitting Unavailable Yaritza Gonzalez Attending Unavailable Ok Tyson [facility] Unavailable Ok Tyson DO Unavailable [phone] Luis Antonio Blas DO Unavailable [phone] NAVID CANTU Attending Unavailable DIDIONRAHEL Attending Unavailable HARRIETLINDA SAL Attending Unavailable OK TYSON Attending Unavailable OK TYSON Referring Unavailable YARITZA GONZALEZ Referring Unavailable YARITZA GONZALEZ Attending Unavailable NAVID CANTU Attending Unavailable SUZAN PATRICK Attending Unavailable NAVID CANTU Attending Unavailable VISCITERENCE Attending Unavailable VISCI, TERENCE Harry Referring Unavailable OK TYSON Attending Unavailable OK TYSON Referring Unavailable DIDRAHEL ESCALANTE Attending Unavailable VISCI, TERENCE Harry Attending Unavailable VISCI, TERENCE Harry Referring Unavailable VISCI, TERENCE Harry Referring Unavailable VISCI, TERENCE Harry Attending Unavailable Allergies Allergy Classification Reported Allergen(s) Allergy Type Date of Onset Reaction(s) Facility (20 sources) Wheat preparation; Translations: [wheat] Drug Allergy 08-30-2022 Abdominal Pain [facility] [place] Medications Current Medications Medication Drug Class(es) Dates [...] 26, 2019 10:13am take [address] [facility] every twenty-four hours Linzess 72 MCG 1 cap(s) Orally Once a day for 30 day(s) Active take 1 capsule by mo ut every twenty-four hours Linzess 145 MCG 1 cap(s) Orally Once a day for 30 day(s) Active Linzess Active magnesium oxide 400 mg oral tablet (20 sources) Start: 12-13-2023 take 1 tablet by [...] day(s), # 15 cap(s), Refills(s) 0, Pharmacy: [place] [id number] [facility], 157.5, cm, 05/17/21 20:52:00 EDT, [...] crush, chew, or split. . 30 capsule 11 11/01/2022 11/01/2023 Active Start: 09-26-2017 End: 09-28-2017 [...] Once monthly Quantity: 1 Refills: 3 Haim PENSION CONSULTANT-STUDENT SUCCESS COUNSELOR, PENSION CONSULTANT-CONSUMER ATTORNEY, Chica Start : 05-Nov-2019 Active 1.5 ML [...] Quantity: 2 Refills: 0 Ordered: 05-Nov-2019 Haim HADDADN-STUDENT SUCCESS COUNSELOR, JOSE-CONSUMER ATTORNEY, Chica Start : 05-Nov-2019 Active cephalexin 500 [...] once daily Quantity: 30 Refills: 3 Haim PENSION CONSULTANT-STUDENT SUCCESS COUNSELOR, JOSE-Vincent CURITSeen Start : 25-Aug-2019 Active Start: 08-25-2019 Citalopram Hyd robromide 10 MG Oral Tablet TAKE 1 AND 1/2 TABLETS DAILY. Quantity: 45 Refills: 5 Haim JOSE-STUDENT SUCCESS COUNSELOR, JOSE-Vincent CURTISeen Start : 25-Aug-2019 Active clonazePAM 0.5 mg [...] A DAY Quantity: 60 Refills: 4 Haim GARCIA-MT, Chica GROVES Start : 05-Feb-2019 Active Start: 10-11-2018 End: 10-16-2020 take 60 mg by mouth once daily Duloxetine Discontinued 60 MG PO Daily October 11, 2018 12:00am October 16, 2020 12:31am Start: 09-30-2018 take [address] [facility] once daily DULoxetine HCl - 40 [...] Start: 11-01-2020 take 1 capsule by mo [facility] once daily FLUoxetine HCl - 10 MG Oral Capsule TAKE ONE CAPSULE BY MOUTH ONE TIME DAILY Quantity: 30 Refills: 0 Ordered: 01-Nov-2020 DO Start : 01-Nov-2020 Active Start: 03-29-2020 take 1 tablet by ashtyn once daily FLUoxetine HCl - 20 MG Oral Tablet TAKE 1 & 1/2 TABLETS BY MOUTH DAILY Quantity: 135 Refills: 1 Ordered: 30-Aug-2020 Haim HADDADN-MT, JOSE-Chica CURTIS Start : 29-Mar-2020 Active Start: 03-29-2020 take 1.5 tablets by mouth once daily FLUoxetine HCl - 20 MG Oral Tablet TAKE 1.5 TABLET Daily Quantity: 45 Refills: 3 Haim GERMAIN STALLWORTH Kathleen Start : 29-Mar-2020 Active PROzac Active [...] Quantity: 15 Refills: 0 Ordered: 22-Aug-2020 Haim HADDADN-STUDENT SUCCESS COUNSELOR, PENSION CONSULTANT-CONSUMER ATTORNEY, Chica Start : 29-Mar-2020 Active Start: 03-27-2019 [...] if needed. Quantity: 15 Refills: 0 Haim HADDADN-STUDENT SUCCESS COUNSELOR, PENSION CONSULTANT-CONSUMER ATTORNEY, Chica Start : 29-Apr-2018 Active lamoTRIgine 25 [...] Quantity: 360 Refills: 0 Ordered: 12-Dec-2019 Haim PENSION CONSULTANT-STUDENT SUCCESS COUNSELOR, PENSION CONSULTANT-CONSUMER ATTORNEY, Chica Start : 30-Dec-2018 End : 30-Aug-2020 [...] Start: 12-07-2019 take 1 capsule by mo [facility] twice daily at mealtime Amitiza [...] Quantity: 270 Refills: 0 Ordered: 03-Sep-2021 Haim PENSION CONSULTANT-STUDENT SUCCESS COUNSELOR, PENSION CONSULTANT-CONSUMER ATTORNEY, Chica Start : 11-May-2021 Active Josie 0.25-35 [...] October 09, 2020 3:25pm polyethylene glycol 3350 57384 mg powder for oral solution (20 sources) Osmotic Laxative Start: 11-13-2019 End: 10-16-2020 Polyethylene Glycol 3350 (Miralax) 17 gram/dose powder Discontinued 17 GM PO Twice daily November 13, 2019 12:00am October 16, 2020 12:31am MiraLax Active polyethylene glycol 3350 [id number] mg / potassium chloride 2970 mg / sodium bicarbonate 6740 mg / sodium chloride 5860 mg / sodium sulfate 14648 mg powder for oral solution (8 sources) [...] October 13, 2018 6:20pm predniSONE Activ e Dtpaqlrh-Emm-Nf-Fa (5 sources) Start: 09-18-2022 End: 07-04-2023 take 1 tablet by mouth once Bdnoifqk-Myk-Er-Fa Discontinued TAB PO September 18, 2022 12:00am July 04, 2023 10:12am Start: 09-18-2022 take 1 tablet by mouth once Pr enatal Ezlhglso-Vfr-Jp-Fa Active TAB PO September 18, 2022 12:00am [...] 24 HOURS. Quantity: 9 Refills: 3 Haim PENSION CONSULTANT-STUDENT SUCCESS COUNSELOR, JOSE-Chica CURTIS Start : 30-Dec-2018 Active sacrosidase 8500 unt/ml [...] Quantity: 90 Refills: 2 Ordered: 22-Mar-2021 Haim GARCIA-STUDENT SUCCESS COUNSELOR, JOSE-Chica CURTIS Start : 22-Mar-2021 End : 30-May-2021 Complete [...] Translations: [Precordial pain] Episodic Other acquired deformities (13 sources) Acquired deformity of lower limb; Translations: [Unspecified acquired deformity of right lower leg] Onset: 01-18-2024 01-18-2024 Episodic Other bone disease and musculoskeletal deformities (8 sources) Costal chondritis; Translations: [Chondrocostal junction syndrome [Tietze]] 10-13-2018 Episodic Other complications of (2 sources) size does not accord with dates; Translations: [Uterine size-date discrepancy, unspecified trimester] 02-25-2024 Episodic Other connective tissue disease (1 source) [...] 2021 Chronic Other and delivery including normal (20 sources) ; Translations: [Encounter for supervision of [...] of ] 12-24-2023 Episodic Residual codes; unclassified (10 sources) Gestation period, 21 weeks; Translations: [21 weeks gestation of ] Onset: 01-22-2024 01-22-2024 Episodic Residual codes; unclassified (2 sources) Gestation period, 26 weeks; Translations: [26 weeks gestation of ] 02-25-2024 Episodic Substance-related disorders (20 sources) Smoker; Translations: [...] Resolved: 2021 Episodic Other connective tissue disease (11 sources) Pain of right calf; Translations: [Pain [...] Range Facility Urinalysis macro (dipstick) panel (U)on 02-25-2024 Bilirubin, UA Negative Negative - 4(70) +++ mg/dL [facility] Blood, UA Negative Negative - 50 Soto/mcL [facility] Clarity, UA Clear [facility] re Color, UA Yellow [facility] Healthcar e Glucose, UA Negative Negative - 1999(110) ++++ mg/dL [facility] Interpretation and review of laboratory results Normal [facility] Ketones, UA Negative Negative - 160(16) ++++ mg/dL [facility] Leukocytes, UA Negative Negative - 500+++ Adarsh/mcL [facility] Nitrite, UA Negative Negative - Positive [facility] pH, UA 5.5 5 - 9 [facility] e Protein, UA Negative Negative - 1999(20) ++++ mg/dL [facility] Spec Grav, UA 1.03 1 - 1.03 [facility] Urobilinogen, UA 0.2 0.2 - 12 mg/dL [facility] e ALL CBC WITH AUTO DIFFon BASOPHILS ABSOLUTE AUTO 0 [facility] Basophils/100 WBC (Bld) 0.6 % 0.2 - 2.0 % [facility] Eosinophils/100 WBC (Bld) 1.4 % 0.9 - 7.0 % [facility] Erythrocyte distribution width (RBC) [Ratio] 12.3 % 11.0 - 15.0 % [facility] Hematocrit (Bld) [Volume fraction] 31.2 % Low 36.0 - 48.0 % [facility] Hemoglobin (Bld) [Mass/Vol] 10.5 g/dL Low 12.0 - 16.0 g/dL [facility] IMMATURE GRANULOCYTES ABS AUTO 0.13 High [facility] Immature granulocytes/100 WBC (Bld) 1.8 % High 0.0 - 0.5 % [facility] Interpretation and review of laboratory results Abnormal [facility] LYMPHOCYTES ABSOLUTE AUTO 1.2 [facility] Lymphocytes/100 WBC (Bld) 17.1 % Low 20.5 - 60.0 % [facility] MCH (RBC) [Entitic mass] 31.5 pg 26.7 - 34.0 pg [facility] MCHC (RBC) [Mass/Vol] 33.7 g/dL 29.9 - 35.2 g/dL [facility] MCV (RBC) [Entitic vol] 93.7 fL 81.0 - 99.0 fL [facility] MONOCYTES ABSOLUTE AUTO 0.5 [facility] Monocytes/100 WBC (Bld) 6.6 % 1.7 - 12.0 % [facility] NEUTROPHILS ABSOLUTE AUTO 5.3 [facility] Neutrophils/100 WBC (Bld) 72.5 % 43.0 - 75.0 % [facility] Platelet mean volume (Bld) [Entitic vol] 9.8 fL 9.5 - 13.5 fL [facility] TBH EO # 0.1 [facility] TBH PLT 194 [facility] TB[facility] RBC 3.33 Low [facility] WBC 7.3 [facility] e Laboratory - Microbiology an d Antimicrobial susceptibilityon 02-09-2024 SARS-CoV-2 (COVID-19) RNA PAMELA+probe Ql (Unsp spec) Negative [facility] No Panel Informationon 02-08 FLU A Negative [facility] FLU B Negative [facility] Healthcar e [facility] Health[facility] e Urinalysis macro (dipstick) panel (U)on 01-22-2024 Bilirubin, UA Negative Negative - 4(70) +++ mg/dL [facility] Blood, UA Negative Negative - 50 Soto/mcL [facility] Clarity, UA Clear [facility] re Color, UA Yellow [facility] e Glucose, UA Negative Negative - 1999(110) ++++ mg/dL [facility] Interpretation and review of laboratory results Abnormal [facility] Ketones, UA Negative Negative - 160(16) ++++ mg/dL [facility] Leukocytes, UA 1+ Negative - 500+++ Adarsh/mcL [facility] Comment on above: small Nitrite, UA Negative Negative - Positive [facility] pH, UA 6 5 - 9 [facility] Protein, UA Negative Negative - 1999(20) ++++ mg/dL [facility] Spec Grav, UA 1.02 1 - 1.03 [facility] Urobilinogen, UA 0.2 0.2 - 12 mg/dL [facility] Comprehensive Metabolic Pane yaritza 01-03-2024 Albumin [Mass/Vol] 3.8 g/dL Normal 3.5-5.7 [facility] Comment on above: Performed By: #### C MP #### [facility] [address] Albumin/Globulin [Mass ratio] 1.7 {ratio} Normal [facility] Comment on above: Performed By: #### C MP #### [address] ALP [Catalytic activity/Vol] 34 U/L Normal 34-104 [facility] Comment on above: Result Comment: PERF ORMED BY: [place] [address] PATHOLOGIST SEISMIC PROSPECTING SUPERVISOR SHAHANA BRITTON M.D. Performed By: #### C MP #### [address] ALT [Catalytic activity/Vol] 9 U/L Normal 7-52 [facility] Comment on above: Performed By: #### C MP #### [address] Anion gap [Moles/Vol] 8.8 mmol/L Normal 6.0-15.0 [facility] Comment on above: Performed By: #### C MP #### [address] AST [Catalytic activity/Vol] 18 U/L Normal 13-39 [facility] Comment on above: Performed By: #### C MP #### [address] Bilirubin [Mass/Vol] 0.4 mg/dL Normal 0.3-1.0 [facility] Comment on above: Performed By: #### C MP #### [address] Calcium [Mass/Vol] 8.6 mg/dL Normal 8.6-10.3 [facility] Comment on above: Performed By: #### C MP #### [address] Chloride [Moles/Vol] 106 mmol/L Normal 98-107 [facility] Comment on above: Performed By: #### C MP #### [address] CO2 [Moles/Vol] 25.6 mmol/L Normal 21.0-31.0 [facility] Comment on above: Performed By: #### C MP #### [address] Creatinine [Mass/Vol] 0.48 mg/dL Low 0.60-1.20 [facility] Comment on above: Performed By: #### C MP #### [address] GFR/1.73 sq M.predicted MDRD (S/P/Bld) [Vol rate/Area] mL/min/{1.73_m2} Normal [facility] Comment on above: Performed By: #### C MP #### [address] Globulin (S) [Mass/Vol] 2.2 g/dL Normal [facility] Comment on above: Performed By: #### C MP #### [address] Glucose [Mass/Vol] 70 mg/dL Normal 70-100 [facility] Comment on above: Result Comment: [facility] Glucose Reference Range is dependent on time and content of last meal. Glucose of more than 200 mg/dL in a nonstressed, ambulatory subject supports the diagnosis of Diabetes Mellitus. ADA recommended reference range Performed By: #### C MP #### [address] Potassium [Moles/Vol] 4.4 mmol/L Normal 3.5-5.1 [facility] Comment on above: Performed By: #### C MP #### [address] Protein [Mass/Vol] 6.0 g/dL Low 6.4-8.9 [facility] Comment on above: Performed By: #### C MP #### [address] Sodium [Moles/Vol] 136 mmol/L Normal 136-145 [facility] Comment on above: Performed By: #### C MP #### [address] Urea nitrogen [Mass/Vol] 9 mg/dL Normal 7-25 [facility] Comment on above: Performed By: #### C MP #### [address] Hemogram CBC Without Diffon 01-03-2024 Erythrocyte distribution width (RBC) [Ratio] 13.3 % Normal 11.9-15.3 [facility] Comment on above: Performed By: #### C BCNO #### [address] Hematocrit (Bld) [Volume fraction] 32.2 % Low 34.0-46.4 [facility] Comment on above: Performed By: #### C BCNO #### [address] Hemoglobin (Bld) [Mass/Vol] 11.1 g/dL Low 11.8-15.4 [facility] Comment on above: Performed By: #### C BCNO #### [address] MCH (RBC) [Entitic mass] 31.3 pg Normal 24.7-34.3 [facility] Comment on above: Performed By: #### C BCNO #### [address] MCV (RBC) [Entitic vol] 90.8 fL Normal 80-100 [facility] Comment on above: Performed By: #### C BCNO #### [address] Mean Corpuscular HGB Conc 34.4 g/dL Normal 32.0-35.0 [facility] Comment on above: Performed By: #### C BCNO #### [address] Platelet mean volume (Bld) [Entitic vol] 8.2 fL Normal 6.3-10.7 [facility] Comment on above: Result Comment: PERF ORMED BY: [address] [id number] PATHOLOGIST SEISMIC PROSPECTING SUPERVISOR SHAHANA BRITTON M.D. Performed By: #### C BCNO #### [facility] [address] Platelets (Bld) [#/Vol] 219 10*3/uL Normal 150-450 [facility] Comment on above: Performed By: #### C BCNO #### [address] RBC (Bld) [#/Vol] 3.55 10*6/uL Low 3.60-5.00 [facility] Comment on above: Performed By: #### C BCNO #### [facility] [address] WBC (Bld) [#/Vol] 7.2 10*3/uL Normal 3.8-11.6 [facility] Comment on above: Performed By: #### C BCNO #### [address] Laboratory - Chemistry and C hemistry - challengeon 01-03-2024 Albumin [Mass/Vol] 3.8 g/dL 3.5 - 5.7 g/dL [facility] Albumin/Globulin [Mass ratio] 1.7 {ratio} [facility] ALP [Catalytic activity/Vol] 34 U/L 34 - 104 U/L [facility] ALT [Catalytic activity/Vol] 9 U/L 7 - 52 U/L [facility] Anion gap [Moles/Vol] 8.8 mmol/L 6.0 - 15.0 meq/L [facility] AST [Catalytic activity/Vol] 18 U/L 13 - 39 U/L [facility] Bilirubin [Mass/Vol] 0.4 mg/dL 0.3 - 1 .0 mg/dL [facility] Calcium [Mass/Vol] 8.6 mg/dL 8.6 - 10. 3 mg/dL [facility] Chloride [Moles/Vol] 106 mmol/L 98 - 10 7 mmol/L [facility] CO2 [Moles/Vol] 25.6 mmol/L 21.0 - 31.0 mmol/L [facility] Creatinine (U) [Mass/Vol] 0.48 mg/dL Low 0.60 - 1.20 mg/dL [facility] Globulin (S) [Mass/Vol] 2.2 g/dL [facility] Glucose [Mass/Vol] 70 mg/dL 70 - 100 mg/dL [facility] Comment on above: Random Glucose Refer ence Range is dependent on time and content of last meal. Glucose of more than 200 mg/dL in a nonstressed, ambulatory subject supports the diagnosis of Diabetes Mellitus. ADA recommended reference range Potassium [Moles/Vol] 4.4 mmol/L 3.5 - 5.1 mmol/L [facility] Protein [Mass/Vol] 6 g/dL Low 6.4 - 8.9 g/dL [facility] Sodium [Moles/Vol] 136 mmol/L 136 - 145 mmol/L [facility] Urea nitrogen [Mass/Vol] 9 mg/dL 7 - 25 mg/dL [facility] Laboratory - Hematology and Cell countson 01-03-2024 Erythrocyte distribution width (RBC) [Ratio] 13.3 % 11.9 - 15.3 % [facility] Hematocrit (Bld) [Volume fraction] 32.2 % Low 34.0 - 46.4 % [facility] Hemoglobin (Bld) [Mass/Vol] 11.1 g/dL Low 11.8 - 15.4 g/dL [facility] MCH (RBC) [Entitic mass] 31.3 pg 24.7 - 34.3 pg [facility] MCHC (RBC) [Mass/Vol] 34.4 g/dL 32.0 - 35.0 g/dL [facility] MCV (RBC) [Entitic vol] 90.8 fL 80 - 100 fL [facility] Platelet mean volume (Bld) [Entitic vol] 8.2 fL 6.3 - 10.7 fL [facility] Platelets (Bld) [#/Vol] 219 10*3/uL 150 - 450 10*3/uL [facility] Laboratory - Urinalysison RBC LM.HPF (Urine sed) [#/Area] 3.55 10*6/uL Low 3.60 - 5.00 10*6/uL [facility] WBC LM.HPF (Urine sed) [#/Area] 7.2 10*3/uL 3.8 - 11.6 10*3/uL [facility] No Panel Informationon 01-02 ESTIMATED GFR mL/Min [facility] care Interpretation and review of laboratory results Abnormal [facility] Interpretation and review of laboratory results Abnormal [facility] e IGP,APTIMA HPV,AGE GDLNon AGE GDLN ACOG TESTING Note . [facility] Comment on above: TESTS RESULT FLAG UN ITS REF RANGE LAB Clinician Provided Cytology Information Source.............Cervix No. of containers..01 ThinPrep Vial Age Algo ACOG Raine... FLAG LEGEND: L-Low Normal,H-High Normal,LL-Alert Low,HH-Alert High <-Panic Low,>-Panic High,A-Abnormal,AA-Critical Abnormal Performed at: 01 =G [address] [id number] Laila Addison MD, IGP, RFX APTIMA HPV ASCU Note . [facility] Comment on above: TESTS RESULT FLAG UN ITS REF RANGE LAB DIAGNOSIS: 02 NEGATIVE FOR INTRAEPITHELIAL LESION OR MALIGNANCY. THIS SPECIMEN WAS RESCREENED PART OF OUR LIE DETECTOR OPERATOR PROGRAM. Specimen adequacy: 02 Satisfactory for evaluation. Endocervical and/or squamous metaplastic cells (endocervical component) are present. Performed by: 03 Rachael Baig, Promotions Team Leader ([facility]) QC reviewed by: 02 Mary Gonsalves, Promotions Team Leader ([facility]) . 02 Note: Note 02 The Pap [...] <-Panic Low,>-Panic High,A-Abnormal,AA-Critical Abnormal Performed at: [address] [place] [address] Laila Addison MD, 03 [facility] [address] [address] Татьяна Arias PhD, Performed at: = - [facility] [id number] Perforator: Laila Addison MD, Phone: [phone] Performed at: [address] [id number] Perforator: Laila Addison MD, Phone: [phone] [facility] [employer] e US.doppler Lower extremity v ein - lefton 01-02-2024 EXAM: [facility] US LOWER EXTREMITY VENOUS DUPLEX LEFT [...] PITER CULVER MD at 02-Jan-2024 05:15:11 PM [facility] [employer] Piter Culver MD - 01/02/2024 EXAM: [facility] US LOWER EXTREMITY VENOUS DUPLEX LEFT [...] PITER CULVER MD at 02-Jan-2024 05:15:11 PM [facility] [employer] [employer] [employer] Radiology Study observation (narrative) [facility] [employer] US.doppler Lower extremity v ein - leftOrdered By: Piter Culver on 01-02-2024 [facility] Work Phone: [facility] US LOWER EXTREMITY VENO US DUPLEX LEFTon 01-02-2024 VAS US LOWER EXTREMITY VENOUS DUPLEX LEFT EXAM: [facility] US LOWER EXTREMITY VENOUS DUPLEX LEFT [...] PITER CULVER MD at 02-Jan-2024 05:15:11 PM [facility]iology Normal Not Available RECURRENT VAGINITIS (HTRX)on 12-26-2023 ATOPOBIUM VAGINAE 0 [facility] althcare ATOPOBIUM VAGINAE Not detected [facility] BVAB 2,3 (BACTERIAL VAGINOSIS ASSOCIATED BACTERIA 2, 3); MOBILUNCUS SPP 0 [facility] BVAB 2,3 (BACTERIAL VAGINOSIS ASSOCIATED BACTERIA 2, 3); MOBILUNCUS SPP Not detected [facility] ROWENA ALBICANS, PARAPSILOSIS, TROPICALIS 0 [facility] ROWENA ALBICANS, PARAPSILOSIS, TROPICALIS Not detected [facility] Healthcare ROWENA GLABRATA 0 [facility] Hea lthcare ROWENA GLABRATA Not detected [facility] R[facility] KRUSEI [facility] R[facility] KRUSEI Not detected [facility] lthcare CHLAMYDIA TRACHOMATIS 0 [facility] CHLAMYDIA TRACHOMATIS Not detected N [facility] GARDNERELLA VAGINALIS 0 [facility] GARDNERELLA VAGINALIS Not detected N [facility] MEGASPHAERA (TYPES 1, 2) 0 [facility] MEGASPHAERA (TYPES 1, 2) Not detected [facility] MYCOPLASMA GENITALIUM 0 [facility] MYCOPLASMA GENITALIUM Not detected N [facility] NEISSERIA GONORRHOEAE 0 [facility] NEISSERIA GONORRHOEAE Not detected N [facility] TRICHOMONAS VAGINALIS 0 [facility] TRICHOMONAS VAGINALIS Not detected N [facility] Urinalysis macro (dipstick) panel (U)on 12-24-2023 Bilirubin, UA Negative Negative - 4(70) +++ mg/dL [facility] Blood, UA Negative Negative - 50 Soto/mcL [facility] Clarity, UA Clear [facility] re Color, UA Yellow [facility] Healthcar e Glucose, UA Negative Negative - 2000(110) ++++ mg/dL [facility] Interpretation and review of laboratory results Normal [facility] Ketones, UA Positive Negative - 160(16) ++++ mg/dL [facility] Leukocytes, UA Positive Negative - 500+++ Adarsh/mcL [facility] Nitrite, UA Negative Negative - Positive [facility] pH, UA 5.5 5 - 9 [facility] Healthcar e Protein, UA Negative Negative - 1999(20) ++++ mg/dL [facility] Spec Grav, UA 1.02 1 - 1.03 [facility] Urobilinogen, UA 1.0 0.2 - 12 mg/dL [facility] Urinalysis macro (dipstick) panel (U)on 11-25-2023 Bilirubin, UA Negative Negative - 4(70) +++ mg/dL [facility] Blood, UA Negative Negative - 50 Soto/mcL [facility] Clarity, UA Clear [facility] re Color, UA Yellow [facility], [facility] Negative Negative - 1999(110) ++++ mg/dL [facility] Interpretation and review of laboratory results Abnormal [facility] Ketones, UA Negative Negative - 160(16) ++++ mg/dL [facility] Leukocytes, UA Trace Negative - 500+++ Adarsh/mcL [facility] Nitrite, UA Negative Negative - Positive [facility] pH, UA 5.5 5 - [facility], UA Negative Negative - 1999(20) ++++ mg/dL [facility] Spec Grav, UA 1.02 1 - 1.03 [facility] Urobilinogen, UA 0.2 0.2 - 12 mg/dL [facility] ALL CBC WITH AUTO DIFFon BASOPHILS ABSOLUTE AUTO 0.0 [facility] Basophils/100 WBC (Bld) 0.4 % 0.2 - 2.0 % [facility] Eosinophils/100 WBC (Bld) 1.3 % 0.9 - 7.0 % [facility] Erythrocyte distribution width (RBC) [Ratio] 11.9 % 11.0 - 15.0 % [facility] Hematocrit (Bld) [Volume fraction] 37.1 % 36.0 - 48.0 % [facility] Hemoglobin (Bld) [Mass/Vol] 12.6 g/dL 12.0 - 16.0 g/dL [facility] IMMATURE GRANULOCYTES ABS AUTO 0.04 High [facility] Immature granulocytes/100 WBC (Bld) 0.5 % 0.0 - 0.5 % [facility] Interpretation and review of laboratory results Abnormal [facility] LYMPHOCYTES ABSOLUTE AUTO 1.6 [facility] Lymphocytes/100 WBC (Bld) 18.7 % Low 20.5 - 60.0 % [facility] MCH (RBC) [Entitic mass] 30.5 pg 26.7 - 34.0 pg [facility] MCHC (RBC) [Mass/Vol] 34.0 g/dL 29.9 - 35.2 g/dL [facility] MCV (RBC) [Entitic vol] 89.8 fL 81.0 - 99.0 fL [facility] MONOCYTES ABSOLUTE AUTO 0.8 [facility] Monocytes/100 WBC (Bld) 9.0 % 1.7 - 12.0 % [facility] NEUTROPHILS ABSOLUTE AUTO 5.9 [facility] Neutrophils/100 WBC (Bld) 70.1 % 43.0 - 75.0 % [facility] Platelet mean volume (Bld) [Entitic vol] 10.5 fL 9.5 - 13.5 fL [facility] TBH EO # 0.1 [facility] e TB PLT 231 [facility] e TB RBC 4.13 Low [facility] e TB WBC 8.4 [facility] e HCG ( test) Ql (U)o n 10-23-2023 Interpretation and review of laboratory results Abnormal [facility] Preg Test, Ur Positive [facility] Urinalysis macro (dipstick) panel (U)on 10-23-2023 Bilirubin, UA Negative Negative - 4(70) +++ mg/dL [facility] Blood, UA Positive Negative - 50 Soto/mcL [facility] Comment on above: small Clarity, UA Clear [facility] re Color, UA Yellow [facility] e Glucose, UA Negative Negative - 1999(110) ++++ mg/dL [facility] Interpretation and review of laboratory results Abnormal [facility] Ketones, UA Negative Negative - 160(16) ++++ mg/dL [facility] Leukocytes, UA Positive Negative - 500+++ Adarsh/mcL [facility] Comment on above: large Nitrite, UA Negative Negative - Positive [facility] pH, UA 5.5 5 - 9 [facility] e Protein, UA Negative Negative - 1999(20) ++++ mg/dL [facility] Spec Grav, UA 1.025 1 - 1.03 [facility] care Urobilinogen, UA 0.2 0.2 - 12 mg/dL [facility] ECG *OFFICE ONLY*on 06-11 [facility] ECG *OFFICE ONLY* [facility] [place] [address] Electrocardiograph Report Signed Patient: Shiv Evangelista MR#: [id number] : 2000 Acct:[id number] Age/Sex: 23 / F ADM Date: 07/04/23 Loc: EKGCARDIO Room: Type: [facility] Attending Dr: Artur Kang MD Ordering Provider: [...] abnormality Abnormal ECG Confirmed by Emmy Jimenez ([id number]) on 07/08/2023 1:09:14 PM Referred By: Electronically Signed By:Emmy Jimenez Transcribed By: MUS Signed By Emmy Jimenez MD 4 [id number] Normal [facility] Basophils Auto (Bld) [#/Vol] Ordered By: YUVAL PETE on 09-19-2022 Basophils (Bld) [#/Vol] 0.0 10*3/uL 0.0-0.2 [facility] Basophils/100 WBC Auto (Bld) Ordered By: YUVAL PETE on 09-19-2022 Basophils/100 WBC (Bld) 0.2 % . [facility] Eosinophils Auto (Bld) [#/Vo l]Ordered By: YUVAL PETE on 09-19-2022 Eosinophils (Bld) [#/Vol] 0.0 10*3/uL 0.0-0.45 [facility] Eosinophils/100 WBC Auto (Bl d)Ordered By: YUVAL PETE on 09-19-2022 Eosinophils/100 WBC (Bld) 0.1 % . [facility] Erythrocyte distribution wid th Auto (RBC) [Ratio]Ordered By: YUVAL PETE on 09-19-2022 Erythrocyte distribution width (RBC) [Ratio] 13.3 % 11.9-15.3 [facility] Hematocrit Auto (Bld) [Volum e fraction]Ordered By: YUVAL PETE on 09-19-2022 Hematocrit (Bld) [Volume fraction] 28.0 % 34.0-46.4 [facility] Hemoglobin [Mass/volume] in BloodOrdered By: YUVAL PETE on 09-19-2022 Hemoglobin (Bld) [Mass/Vol] 9.3 g/dL 11.8-15.4 [facility] Leukocytes [#/volume] correc dionicio for nucleated erythrocytes in Blood by Automated counOrdered By: YUVAL PETE on 09-19-2022 WBC corrected for nucl RBC Auto (Bld) [#/Vol] 14.2 10*3/uL 3.8-11.6 [facility] Lymphocytes Auto (Bld) [#/Vo l]Ordered By: YUVAL EPTE on 09-19-2022 Lymphocytes (Bld) [#/Vol] 1.2 10*3/uL 1.00-4.8 [facility] Lymphocytes/100 WBC Auto (Bl d)Ordered By: YUVAL PETE on 09-19-2022 Lymphocytes/100 WBC (Bld) 8.5 % . [facility] MCH Auto (RBC) [Entitic mass ]Ordered By: YUVAL PETE on 09-19-2022 MCH (RBC) [Entitic mass] 28.7 pg 24.7-34.3 [facility] MCHC Auto (RBC) [Mass/Vol]Or dered By: YUVAL PETE on 09-19-2022 MCHC (RBC) [Mass/Vol] 33.2 g/dL 32.0-35.0 [facility] MCV Auto (RBC) [Entitic vol] Ordered By: YUVAL PETE on 09-19-2022 MCV (RBC) [Entitic vol] 86.3 fL 80-100 [facility] Monocytes Auto (Bld) [#/Vol] Ordered By: YUVAL PETE on 09-19-2022 Monocytes (Bld) [#/Vol] 1.5 10*3/uL 0.0-0.8 [facility] Monocytes/100 WBC Auto (Bld) Ordered By: YUVAL PETE on 09-19-2022 Monocytes/100 WBC (Bld) 10.2 % . [facility] Neutrophils Auto (Bld) [#/Vo l]Ordered By: YUVAL PETE on 09-19-2022 Neutrophils (Bld) [#/Vol] 11.5 10*3/uL 1.8-7.7 [facility] Neutrophils/100 WBC Auto (Bl d)Ordered By: YUVAL PETE on 09-19-2022 Neutrophils/100 WBC (Bld) 81.0 % . [facility] Nucleated erythrocytes [Pres ence] in Blood by Automated countOrdered By: YUVAL PETE on 09-19-2022 Nucleated RBC Auto Ql (Bld) 0.0 /100{WBC} 0-0.5 [facility] Platelet mean volume Auto (B ld) [Entitic vol]Ordered By: YUVAL PETE on 09-19-2022 Platelet mean volume (Bld) [Entitic vol] 8.8 fL 6.3-10.7 [facility] Platelets Auto (Bld) [#/Vol] Ordered By: YUVAL PETE on 09-19-2022 Platelets (Bld) [#/Vol] 181 10*3/uL 150-450 [facility] RBC Auto (Bld) [#/Vol]Ordere d By: YUVAL PETE on 09-19-2022 RBC (Bld) [#/Vol] 3.24 10*6/uL 3.60-5.00 [facility] WBC Auto (Bld) [#/Vol]Ordere d By: YUVAL PETE on 09-19-2022 WBC (Bld) [#/Vol] 14.2 10*3/uL 3.8-11.6 [facility] Amphetamine Screen Ql (U)Ord ered By: YUVAL PETE on 09-18-2022 Amphetamines Ql (U) Negative Negative [facility] Automated epithelial cells c ount in urine sediment (number/area)Ordered By: YUVAL PETE on 09-18-2022 Epithelial cells Auto (Urine sed) [#/Area] 10-19 [HPF] 0-2 [facility] Automated erythrocytes count in urine sediment (number/area)Ordered By: YUVAL PETE on 09-18-2022 RBC Auto (Urine sed) [#/Area] 0-1 [HPF] 0-4 [facility] Automated leukocytes count i n urine sediment (number/area)Ordered By: YUVAL PETE on 09-18-2022 WBC Auto (Urine sed) [#/Area] 20-49 [HPF] 0-4 [facility] Automated urine hyaline cast s count (number/volume)Ordered By: YUVAL PETE on 09-18-2022 Hyaline casts Auto (U) [#/Vol] None seen [LPF] 0-1 [facility] Barbiturates [Presence] in U rine by Screen methodOrdered By: YUVAL PETE on 09-18-2022 Barbiturates Screen Ql (U) Negative Negative [facility] Benzodiazepines Screen Ql (U )Ordered By: YUVAL PETE on 09-18-2022 Benzodiazepines Ql (U) Negative Negative [facility] Benzoylecgonine [Presence] i n Urine by Screen methodOrdered By: YUVAL PETE on 09-18-2022 Benzoylecgonine Screen Ql (U) Negative Negative [facility] Bilirubin Test strip Ql (U)O rdered By: YUVAL PETE on 09-18-2022 Bilirubin Ql (U) Negative Negative [facility] Color Auto (U)Ordered By: CHARLES PETE on 09-18-2022 Color (U) Yellow Yellow [facility] Ketones Auto test strip (U) [Mass/Vol]Ordered By: YUVAL PETE on 09-18-2022 Ketones (U) [Mass/Vol] Negative Negative [facility] Nitrite Test strip Ql (U)Ord ered By: YUVAL PETE on 09-18-2022 Nitrite Ql (U) Negative Negative [facility] Opiates [Presence] in Urine by Screen methodOrdered By: YUVAL PETE on 09-18-2022 Opiates Screen Ql (U) Negative Negative [facility] Phencyclidine Screen Ql (U)O rdered By: YUVAL PETE on 09-18-2022 Phencyclidine Ql (U) Negative Negative [facility] Comment on above: These are unconfirme d results and should not be used for legal purposes. Drug Cut-Off Concentration: AMPH 1000 ng/mL LESLEY 200 ng/mL NETTIE 200 ng/mL COCM 300 ng/mL OP 300 ng/mL PCP 25 ng/mL Protein Auto test strip (U) [Mass/Vol]Ordered By: YUVAL PETE on 09-18-2022 Protein (U) [Mass/Vol] Negative Negative [facility] Reagin Ab [Presence] in Seru m by RPROrdered By: YUVAL PETE on 09-18-2022 Reagin Ab RPR Ql (S) Non-Reactive Non Reactive [facility] Comment on above: Performed at: [facility] [employer] [address] Director: Tony Avila PhD, Phone: [phone] Specific gravity Auto test s trip (U) [Rel density]Ordered By: YUVAL PETE on 09-18-2022 Specific gravity (U) [Rel density] 1.004 1.001-1.030 [facility] Urine bacteria detection by automated methodOrdered By: YUVAL PETE on 09-18-2022 Bacteria Auto Ql (U) 2+ None Seen [facility] Urine clarity by refractomet ry automatedOrdered By: YUVAL PETE on 09-18-2022 Clarity Refractometry automated (U) Cloudy Clear [facility] Urine culture routineOrdered By: YUVAL PETE on 09-18-2022 Bacteria identified Cx Nom (U) 2 Days [facility] Urine glucose measurement by automated test strip (mass/volume)Ordered By: YUVAL PETE on 09-18-2022 Glucose Auto test strip (U) [Mass/Vol] Normal mg/dL Normal [facility] Urine hemoglobin detection b y automated test stripOrdered By: YUVAL PETE on 09-18-2022 Hemoglobin Auto test strip Ql (U) Trace Negative [facility] Urine leukocyte esterase det ection by automated test stripOrdered By: YUVAL PETE on 09-18-2022 Leukocyte esterase Auto test strip Ql (U) 4+ Negative [facility] Urobilinogen Auto test strip (U) [Mass/Vol]Ordered By: YUVAL PETE on 09-18-2022 Urobilinogen (U) [Mass/Vol] Normal mg/dL Normal [facility] pH Auto test strip (U)Ordere d By: YUVAL PETE on 09-18-2022 pH (U) 7.0 [pH] 5.0-9.0 [facility] Group B Streptococcus cultur eOrdered By: Chica Newman on 09-03-2022 S. agalactiae Org specific cx Ql (Unsp spec) No Group B Beta Streptococcus Isolated 3 Days [facility] Amphetamine Screen Ql (U)Ord ered By: Terence Tolentino on 08-10-2022 Amphetamines Ql (U) Negative Negative [facility] Automated erythrocytes count in urine sediment (number/area)Ordered By: Terence Tolentino on 08-10-2022 RBC Auto (Urine sed) [#/Area] 0-1 [HPF] 0-4 [facility] Automated leukocytes count i n urine sediment (number/area)Ordered By: Terence Tolentino on 08-10-2022 WBC Auto (Urine sed) [#/Area] 10-19 [HPF] 0-4 [facility] Barbiturates [Presence] in U rine by Screen methodOrdered By: Terence Tolentino on 08-10-2022 Barbiturates Screen Ql (U) Negative Negative [facility] Benzodiazepines Screen Ql (U )Ordered By: Terence Tolentino on 08-10-2022 Benzodiazepines Ql (U) Negative Negative [facility] Benzoylecgonine [Presence] i n Urine by Screen methodOrdered By: Terence Tolentino on 08-10-2022 Benzoylecgonine Screen Ql (U) Negative Negative [facility] Bilirubin Test strip Ql (U)O rdered By: Terence Tolentino on 08-10-2022 Bilirubin Ql (U) Negative Negative [facility] Color Auto (U)Ordered By: Carla Tolentino on 08-10-2022 Color (U) Yellow Yellow [facility] Ketones Auto test strip (U) [Mass/Vol]Ordered By: Terence Tolentino on 08-10-2022 Ketones (U) [Mass/Vol] Negative Negative [facility] Laboratory - UrinalysisOrder ed By: Terence Tolentino on 08-10-2022 Hyaline casts LM Ql (Urine sed) None seen [LPF] 0-8 [facility] Nitrite Test strip Ql (U)Ord ered By: Terence Tolentino on 08-10-2022 Nitrite Ql (U) Negative Negative [facility] No Panel InformationOrdered By: Terence Tolentino on 08-10-2022 Membranes Rupture (PAMG-1) Negative Negative [facility] Opiates [Presence] in Urine by Screen methodOrdered By: Terence Tolentino on 08-10-2022 Opiates Screen Ql (U) Negative Negative [facility] Phencyclidine Screen Ql (U)O rdered By: Terence Tolentino on 08-10-2022 Phencyclidine Ql (U) Negative Negative [facility] Comment on above: These are unconfirme d results and should not be used for legal purposes. Drug Cut-Off Concentration: AMPH 1000 ng/mL LESLEY 200 ng/mL NETTIE 200 ng/mL COCM 300 ng/mL OP 300 ng/mL PCP 25 ng/mL Protein Auto test strip (U) [Mass/Vol]Ordered By: Terence Tolentino on 08-10-2022 Protein (U) [Mass/Vol] Negative Negative [facility] Specific gravity Auto test s trip (U) [Rel density]Ordered By: Terence Tolentino on 08-10-2022 Specific gravity (U) [Rel density] 1.004 1.001-1.030 [facility] Squamous epithelial cells de tection in urine sediment by light microscopyOrdered By: Terence Tolentino on 08-10-2022 Epithelial cells.squamous LM Ql (Urine sed) 0-1 [HPF] 0-2 [facility] Urine bacteria detection by automated methodOrdered By: Terence Tolentino on 08-10-2022 Bacteria Auto Ql (U) None seen None Seen [facility] Urine clarity by refractomet ry automatedOrdered By: Terence Tolentino on 08-10-2022 Clarity Refractometry automated (U) Clear Clear [facility] Urine culture routineOrdered By: Terence Tolentino on 08-10-2022 Bacteria identified Cx Nom (U) 2 Days [facility] Urine glucose measurement by automated test strip (mass/volume)Ordered By: Terence Tolentino on 08-10-2022 Glucose Auto test strip (U) [Mass/Vol] Normal mg/dL Normal [facility] Urine hemoglobin detection b y automated test stripOrdered By: Terence Tolentino on 08-10-2022 Hemoglobin Auto test strip Ql (U) Negative Negative [facility] Urine leukocyte esterase det ection by automated test stripOrdered By: Terence Tolentino on 08-10-2022 Leukocyte esterase Auto test strip Ql (U) 4+ Negative [facility] Urobilinogen Auto test strip (U) [Mass/Vol]Ordered By: Terence Tolentino on 08-10-2022 Urobilinogen (U) [Mass/Vol] Normal mg/dL Normal [facility] pH Auto test strip (U)Ordere d By: Terence Tolentino on 08-10-2022 pH (U) 7.0 [pH] 5.0-9.0 [facility] Cytology Cervical or vaginal smear or scraping studyon 03-12-2022 [facility] Coding Summary.on 11-28-2021 Coding Summary. [id number] Gh0bWw+PGhlYWQ+PE1FV CZrQ78ogOHzaI3LG8uWR D8HIFJZKEHESX7GUB1vz AF2BQdfZ9PbgtUk CmhhzTTdWS57FMe1YID5 xOjtJCjodP0piJYbL5e2 DoDxED49gR48TFddOMHl PkS1XsJwtrujbDDe P5txGmTmzJNhCxu+PHRh YmxlIHdpZHRoPScxMDAl ZrZkyHqmAZ7uGr0hHTKb LWNvbGxhcHNlOiBj y0niNRHeYXnuGL2lmMrm M3TtaKH3RRQhz6f7Tq54 dHI+CHGlOSH9gYpiNRyp h723RnDbg7idWRD8 mPDhVDdnSFR0X31dg0B9 XEPsDWMvYSG7qLC0aE2w hIcwpszdM8SplLLzUmV6 OUT4qGMvnY0emJpt aeatmG0xCcp+Y77EVU8R TCZVBN1ASsc0V9MfEaeh dHI+VH20QCXpVL95nXBr dAXcq3jieQn6XbGg XNIxUGL5lGawJNcxk5Kl HYQiU35mnJNsx7F4PBJd yVplcSKnOcMwjQU3sO6c NHxomulxe4ftmkgr Ljhww2csmo10pZ80U15j HRpuINYbJUD4KMCqQYHj iNjtqc0tmU7gAp3+IDxj l0pkw7vsgSe3FgRx SEJurePclGnaXHH6m5El Zw01I9VrhKfdt1SfJsd4 ot01pNFdt1H7hBB4IJts ZBKjoG0cWBccPnC2 DJUnIuLnfP38wJDkTWgb Qy0epQwjuLfbFH0sVUAy qfqkZBWdnW8xAMJxqXKi mStuMK2tROOkvbgi l222YyUfASF6EYVkhMRt R1OjbV1oNsCtIDZtWCVg F6YdgABnDWpqT554CDwj WjI3GETrsnRqK2Hh ZKAuqUnwBiQ8k0P3En0D l7WacbynNXJ2RTfsVAMf DkH3LiDlRzZ0B4GeCgg4 OHYwmSulDV2xY6Bz QMEwcscmataozCV9ISRo QWQxcL64tHPvLPmmWl5w a1G3o201TYYeCZCwoM96 Sc1ubDpqIQVjbEJD oO6wduiuy6ytvsjxAkKk NPZqPAu0TTg2DHBcuRyo VsLwJAQ7SiM7HYV5zDUz bH9noBkakyzosH2j Oyc+W97rlQ4tRVO4ITB8 whtaVLTeyxPfNX25TH70 P7FqPkpgaDFaoRU+PGRp ntZgdQrqLJ3bRiTa j6gfx3XdEJwfT1SsNKKi OOheOwr7AGVuNNG1nZR8 qT3qDKMsCQrbk2M2dJO2 V7IbkeUkkg1dr6jn CBZzNTsbM20vuRTje9P5 QGUnyFX6WOEotIfjVcFn tW68Zwy+PFJvcUjit9Tk Xcxqc7hfb4htcZm1 IjMwJSIgdmFsaWduPSJ0 e8PbMk79Y85aAQptZNPm OELqJDIrHIFjgYehcb1t yW2aTe5+PGNvbCB3 mIN7kR4jOVQyFzM6CEaa P958MlOqtHCpMxdug6sf b1prpGz8GzGnJIEcjmEr eBpjWFV4f5XrBp51 Y86jZImrAEYiWHWbTTDn HHLbdSyjmp2ajZ1dOl5+ SW6sk1optw50kJ34zUH+ DCKgFVU3pZjuHLyl XBNhdY0aAHlcAdL0YALp TuAvlV24bAPzTQarKl4i mMosiFdtUS1dZKSjdpow y729LmSki5ocZOSq cDOiMAchCAQ8G28we2U7 DVGjGQQtNRG0pTQ1uW3o bGlnbjogbGVmdDsgdmVy kFnxRQooKLqnI101 IHRvcDsnPlBhdGllbnQg DoYvAJu4V7TvJsc6HVYe bRywEU6irIQgBBblBb8l qPwonOoiCG5sJAQf ncjiz705WgQsd3sbGLWv zGLwOAxjBIU6W34ro6Z6 IGRhOLQcCMU4hCX9rA9u bGlnbjogbGVmdDsg uaVvjWvnYUhrVTmmI298 IHRvcDsnPkJpcnRoIERh vTD2IJ26MN04yUKzj4F0 oBX6I6AcOOZkwltx labayDD5TNFxDYAzoU97 Dz2zhCjdGc5rDDMmIHC1 QHGwpTGhZ1LwjP6uIvXq TIHsMSUbN7OtlXJz JZvsN166OMcuHvO4GAHc poAtH4HcXNHvkFkkJgV6 e7U7Tg1UL1H7CG84DN62 nELja5M4wNR5O8Io XHNkroopiodupMO1DTKq ILKorG00Ud2hcKwgNi0a ZVQiIVZ9NYIhbHOqN4Cm aQ9uShWtPDEeGIJv J8NapHWmWKkxO434GEgs SmF5JAJkreNuY9ZzHALi iUsdJvU4r7W2Uy0CITy5 PK43HI34uUVpc8Y5 gVY5Z1NpKZKshmursvzx oPJ7TJVaBMIbaW61Bi7p mRszMk6kGRSqXUU6KSBe gRGdZ4MwoP3eTzHa HYMuIFTeH1IhfXMdMCrj U696OAhlVqV5FYAhgeJs W2QnCIOxhFygNpP3y9Z2 Lx4DYUMrZB83BIY5 xZU7SA31KI57K1DgVrxx dGFibGU+PHRhYmxlIHdp ZHRoPScxMDAlJyBzdHls VX4lLf4uAQQqAVYt eCfxmSHhZcPqs3tmSCBd GTeeMD6otHxdC2UayDL3 ASKhs9l2Ws49V11dV5Yc dXA+CKKbpUW8rGY3 yG6xXkWsTcM1TYwoH152 IuSbmWVjOaorq9whl9yf jWm7LqY7PBYocdBgdHbg KSQ6v7JhXk25D06f IHdpZHRoPSIxNSUiIHZh wJmxza4cpY8xIo9+PGNv lMO1gMX7qY0uMzFrKaY4 PLajQ151ZqDjjFAb Ppsyw0sjb0mkkKj7CmSj DTCuzaOklQtaRMM1k9Ht Qe35I9YdyBfdh2BkBbw5 ef98cKJds5Z4kEU5 Q4OtEQWzwlpaoTMddXqj PW4rMDNgdhniQKPktC9j UNPmO2o2CcUrKmK9AUjx Y8ZsrdX0XWVoyJKw UYiiGVI1J32qv1L4PAWj RBDkDCG5sCV9mL1xbIym bjogbGVmdDsgdmVydGlj ENxwRAlcF652SRNe sKyfKYYujI0fYLUtiGQt lHiiAS6tIZJlvoceFmSK HXjbUAYKFZ1AJOI7U3Ki Uyv4JFLjrJwaWN8i xBGdXXmlWy4nrWefbHui ZQ1yDDHxmamjSFLjeI3j FVVliRQzkBylQA2yRVSi cifwj852RaSeKSO8 BHIwdROsN3TfoV1aLuWp OXTsWJAeU8PlgBMkBSym B819GNmiDbR2GGYvyyZu X6XnBNVvdBbhLxY3 v5W8Mm9pSA5wYE1iBAVw QJ51HD96eUCog7F5zZS4 P8CaRAPeytnlfrjaaZI9 PBKgGIXmkF11cHIx OVcnVw7ce2L7q226MUBm BEZnoI49Va3nzKtfRJGe eLGYcH1hhuako9mpfawi RxGtBBTfBCh1FLo4 JWImtUluIjZsMOA8ZvH4 YDY4qDElcN1faIkywthw uP5qJav+MjAgWWVhcnM8 K0GrOfi6WWPjcLbn ZG3xvBEnFEseIc0stFdf jLhaFD4fHZPdaiplGHXf vH4hMKQrnNTeiGlrEM7g GGPlmkcgc654JuSu DIS6BHNinZHeL2IgeF9d NkDiNIPsQDKeN6CcnVBv ZUbtC993EXjlFdO5FCLn vvEaX6KdOOBazEdg QiT8q6N0Uh3LYA9ixTC5 E2EkDaw8AKTtoVjaNE4i xYXaCFtbHf9hkOlapNjc QW9eDJUvhjozYRMq tQ8uUVZmzUFnqBgaSQ6o ZGEpahokv714IeBsWFJ1 YSFniAVsU8McjI2sHeYs DWDmJGQnK9UbiLBg ZNgyZ494QEriBsJ4RASd neFiN1QiXUByhZniLnM2 y8R1Ba8HsERxZ5HqC8r3 S3CnQtwxqMJ+PC90 YZGqYM56qKYzuCZgq1it wKc8QhVpUSOhPGH5pSvw FQcea5OqWQUyI25slFDh u1O2KPAfdVefbAZp FpEkjHS7hC8pDXpbfllk o6eheiltMoycu7fwtc58 jB03A24aEUqaXKXjCPFm HGHmEMAgcNmujc8i jE1gQh9+LCDspIE0lJT8 uC8cKpWoRnG1SBtfD968 OhTzjZVkLkazo3zlu9ne hHc8YsIdBBLswqWv xYjkSKN0z5VgYn80D31x IHdpZHRoPSIyMCUiIHZh oNktnk5xtO8fQv9+PC9j t5klzf16jI96xIC+ SHOdAHL3qHaoFDjbEMRy cD3lDPpmHeS0JXNtHaGr fA10vYTfDUmdHn7taIeo cBpfQX3mNDIpzvac l858XtXbb0kvFBZhbQXf ZTnaTFB5G34qd8U8PVXv THVbWGA2jBS9jD0nwLwj bjogbGVmdDsgdmVy dVzyFLcaBPwjP412CBGm kXgmFoCofPEmI5dbvuLQ BJ3qSykseHS+PHRkIHN0 tScnXSbfTVAuyH3f ZTLpP6t4ZrAmZwA7NDxu U1XkgdX2LAZkfDEzZBUs qWJLmB0airpcc9oksglf KvLjGDKxVEv2LPs7 QSRhrKlvMrTlELE4KaO6 LEN0rPYnlM4qtKmsvkyc jK4jBnz+RklOOjwvdGQ+ ZEQxKXN5xIuqRSwd XZNaaD0lEYDgM3x6WhKp CcH4FHnjB6CdnhI1SCKo vWVfNQUumIORnS8mvokc p9cxwvxtSaKnAZRp SMi8OPm8TCRfmXmyOsCy IUX5QqW4LOC8aFPrfW1g sZuqjxczoJ1xVcu+TVJO OjwvdGQ+PHRkIHN0 cThsARdoTBYhpD2jLDVd C2j1FpKrLeB6RCmnK0Tb vmJ6LNKpcQLfKHMulILA mN8xmgehu1wdedib VfQnYVIfKFf3NPu1JRIj dVwyIlDnGLF0RkB8AXK7 kYKubC2gtJcgydrqdH6v Oyc+QSO6CYN9IC50 GK97C5KwJwodvSLbgQG+ PHRhYmxlIHdpZHRoPScx BQLbHbYsjKuiDC9cQz7k ZGVyLWNvbGxhcHNl OiBj (more content not included)... Normal [facility] Discharge Instructionson Discharge Instructions [id number]#1.00CD:127 Normal [facility] ED Clinical Summaryon 2021 ED Clinical Summary [address] [address] ED Clinical Summary Person Information Name: EVANGELISTA, SHIV E [place] Age: 21 Years : 2000 Sex: Female Language: Lao PCP: OK TYSON DO Marital Status: Single [...] 23:47:16 11/25/2021 23:47:16 ADDRESS: [id number] [facility] [id number] PHYS DOC NOTES: MEDICAL INFORMATION: Prescriptions Given: Medications to Continue with No Changes Other Medications hydrOXYzine (Vistaril 25 mg Cap) 1-2 cap(s) By Mouth 4 times a day as needed as needed for anxiety. Refills: 0. PATIENT EDUCATION INFORMATION: Instructions: Migraine Headache Follow up: With: Address: When: [place] [address] [place] [address] Business (1) In 3 days DIAGNOSIS: Migraine headache Normal [facility] ED Note-Physicianon 11-27-19 ED Note-Physician Basic Information Time Seen: Rayray Aquino DOCharley 11/25/2021 21:35 Chief Complaint pt reports hx [...] 5 mg/mL Inj, 10 mg, IV Push [id number] [F], 1000 mL, IV Disposition Plan Discharge Prescription List Prescriptions No active prescription medications Follow-up With When Contact Information OK TYSON In [address], [address] [place] [id number] Business (1) Additional Instructions: Patient Education Migraine [...] Diagnostic Results No qualifying data available. Normal [facility] Comment on above: Result Comment: Elec [...] these instructions at home: Medicines ? Take zlef-seh-dszfalu and prescription medicines only as told by your health care provider. ? Ask your health care provider if the medicine prescribed to you: ? Requires you to avoid driving or using heavy machinery. ? Can cause constipation. You may need to take these actions to prevent or treat constipation: ? Drink enough fluid to keep your urine pale yellow. ? Take evpd-qas-lcvagqs or prescription medicines. ? Eat foods that [...] different or (more content not included)... Normal [facility] ED Patient Summaryon 022 ED Patient Summary [place] [id number] Patient Discharge Instructions Person Information Name: SHIV EVANGELISTA Age: 21 Years Arrival Date: 11/25/2021 18:57:45 Discharge Diagnosis: Migraine headache Primary Care Physician: OK TYSON DO Provider Information Primary Provider: Rayray Aquino DO Advanced Mud Trucker:None The exam and treatment you received in the Emergency Department were for an urgent problem and are not intended as complete care. It is important that you follow up with a doctor, nurse practitioner, or physician?s optometrist assistant for ongoing care. If your symptoms [...] Instructions: With: Address: When: [place] [address] , [facility] [address] [place] [id number] Business (1) In 3 days In the event that this physician does not participate in your insurance network, please consult with your insurance company to find a nearby participating provider. Patient Education Materials: Migraine Headache A MESSAGE TO ALL PATIENTS REGARDING OPIOIDS PRESCRIPTION OPIOIDS: WHAT YOU NEED TO KNOW Prescription opioids can be used to help relieve vqjdomcz-vs-bestot pain and are often prescribed following a [...] be struggling with addiction, tell your health rn care transition and ask for guidance or call SAMHSA?S National Helpline at 1-599-083-HELP. v Source: US Department of Health and Human (more content not included)... [facility] Progress Note-Nurseon 2021 Progress Note-Nurse Pt. brought back to ed bed 13 [facility] Progress Note-Nurse Pt. states her headache is completely gone and she is ready to go home. [facility] Consent for Treatmenton 11-10 Consent for Treatment [id number] #1.00CD:127 [facility] Urine culture routineOrdered By: Ok Tyson on 10-11-2021 Bacteria identified Cx Nom (U) Klebsiella pneumoniae [facility] Automated epithelial cells c ount in urine sediment (number/area)Ordered By: Ok Tyson on 10-09-2021 Epithelial cells Auto (Urine sed) [#/Area] 20-49 [HPF] 0-2 [facility] Automated erythrocytes count in urine sediment (number/area)Ordered By: Ok Tyson on 10-09-2021 RBC Auto (Urine sed) [#/Area] None seen [HPF] 0-4 [facility] Automated leukocytes count i n urine sediment (number/area)Ordered By: Ok Tyson on 10-09-2021 WBC Auto (Urine sed) [#/Area] 1-2 [HPF] 0-4 [facility] Automated urine hyaline cast s count (number/volume)Ordered By: Ok Tyson on 10-09-2021 Hyaline casts Auto (U) [#/Vol] None seen [LPF] 0-1 [facility] Bilirubin Test strip Ql (U)O rdered By: Ok Tyson on 10-09-2021 Bilirubin Ql (U) Negative Negative [facility] Color Auto (U)Ordered By: Anna Tyson on 10-09-2021 Color (U) Yellow Yellow [facility] Ketones Auto test strip (U) [Mass/Vol]Ordered By: Ok Tyson on 10-09-2021 Ketones (U) [Mass/Vol] Negative Negative [facility] Nitrite Test strip Ql (U)Ord ered By: Ok Tyson on 10-09-2021 Nitrite Ql (U) Negative Negative [facility] Protein Auto test strip (U) [Mass/Vol]Ordered By: Ok Tyson on 10-09-2021 Protein (U) [Mass/Vol] Negative Negative [facility] Specific gravity Auto test s trip (U) [Rel density]Ordered By: Ok Tyson on 10-09-2021 Specific gravity (U) [Rel density] 1.005 1.001-1.030 [facility] Urine bacteria detection by automated methodOrdered By: Ok Tyson on 10-09-2021 Bacteria Auto Ql (U) 3+ None Seen [facility] Urine clarity by refractomet ry automatedOrdered By: Ok Tyson on 10-09-2021 Clarity Refractometry automated (U) Clear Clear [facility] Urine glucose measurement by automated test strip (mass/volume)Ordered By: Ok Tyson on 10-09-2021 Glucose Auto test strip (U) [Mass/Vol] Normal mg/dL Normal [facility] Urine hemoglobin detection b y automated test stripOrdered By: Ok Tyson on 10-09-2021 Hemoglobin Auto test strip Ql (U) Negative Negative [facility] Urine leukocyte esterase det ection by automated test stripOrdered By: Ok Tyson on 10-09-2021 Leukocyte esterase Auto test strip Ql (U) 2+ Negative [facility] Urobilinogen Auto test strip (U) [Mass/Vol]Ordered By: Ok Tyson on 10-09-2021 Urobilinogen (U) [Mass/Vol] Normal mg/dL Normal [facility] pH Auto test strip (U)Ordere d By: Ok Tyson on 10-09-2021 pH (U) 7.0 [pH] 5.0-9.0 [facility] Albumin [Mass/volume] in Ser um or PlasmaOrdered By: Ok Tyson on 09-13-2021 Albumin [Mass/Vol] 4.5 g/dL 3.2-5.5 [facility] Creatinine and Glomerular fi ltration rate.predicted panel (S/P/Bld)Ordered By: Ok Tyson on 09-13-2021 Creatinine [Mass/Vol] 0.71 mg/dL 0.44-1.03 [facility] Estimated glomerular filtrat ion rate (GFR) non- AmericanOrdered By: Ok Tyson on 09-13-2021 GFR/1.73 sq M.predicted among non-blacks MDRD (S/P/Bld) [Vol rate/Area] > 60 mL/Min [facility] Globulin Calc (S) [Mass/Vol] Ordered By: Ok Tyson on 09-13-2021 Globulin (S) [Mass/Vol] 2.5 g/dL [facility] No Panel InformationOrdered By: Ok Tyson on 09-13-2021 Estimated GFR () > 60 mL/Min [facility] Comment on above: GFR estimated refere nce range: According to KDOQI guidelines, <60 ml/min/1.73m2 is sufficient to diagnose a patient with chronic kidney disease. Pharmacy Creatinine Clearance (Chem N/A [facility] Protein [Mass/volume] in Ser um or PlasmaOrdered By: Ok Tyson on 09-13-2021 Protein [Mass/Vol] 7.0 g/dL 6.1-7.9 [facility] Serum or plasma alanine schmid otransferase measurement without P-5'-P (enzymatic activiOrdered By: Ok Tyson on 09-13-2021 ALT No additional P-5'-P [Catalytic activity/Vol] 18 U/L 10-60 [facility] Serum or plasma albumin/glob ulin mass ratioOrdered By: Ok Tyson on 09-13-2021 Albumin/Globulin [Mass ratio] 1.8 {ratio} [facility] Serum or plasma alkaline pascale sphatase measurement (enzymatic activity/volume)Ordered By: Ok Tyson on 09-13-2021 ALP [Catalytic activity/Vol] 51 U/L 32-92 [facility] Serum or plasma aspartate am inotransferase measurement (enzymatic activity/volume)Ordered By: Ok Tyson on 09-13-2021 AST [Catalytic activity/Vol] 23 U/L 10-42 [facility] Serum or plasma calcium acosta urement (mass/volume)Ordered By: Ok Tyson on 09-13-2021 Calcium [Mass/Vol] 9.2 mg/dL 8.2-10.2 [facility] Serum or plasma chloride danis surement (moles/volume)Ordered By: Ok Tyson on 09-13-2021 Chloride [Moles/Vol] 104 mmol/L 95-114 [facility] Serum or plasma glucose acosta urement (mass/volume)Ordered By: Ok Tyson on 09-13-2021 Glucose [Mass/Vol] 82 mg/dL 70-100 [facility] Comment on above: ADA recommended refe rence range Random Glucose Reference Range is dependent on time and content of last meal. Glucose of more than 200 mg/dL in a nonstressed, ambulatory subject supports the diagnosis of Diabetes Mellitus. Serum or plasma potassium me asurement (moles/volume)Ordered By: Ok Tyson on 09-13-2021 Potassium [Moles/Vol] 3.4 mmol/L 3.5-5.1 [facility] Serum or plasma sodium measu rement (moles/volume)Ordered By: Ok Tyson on 09-13-2021 Sodium [Moles/Vol] 139 mmol/L 136-146 [facility] Serum or plasma total biliru bin measurement (mass/volume)Ordered By: Ok Tyson on 09-13-2021 Bilirubin [Mass/Vol] 0.4 mg/dL 0.3-1.2 [facility] Serum or plasma total carbon dioxide measurement (moles/volume)Ordered By: Ok Tyson on 09-13-2021 CO2 [Moles/Vol] 28.3 mmol/L 22.0-30.0 [facility] Serum or plasma urea nitroge n measurement (mass/volume)Ordered By: Ok Tyson on 09-13-2021 Urea nitrogen [Mass/Vol] 8 mg/dL 9 [facility] Q - Strep pneumo Ab 23 serot ypeson 06-15-2021 SEROTYPE 1 (1) 91.7 Normal [facility] Quarantine Officer Comment on above: Order Comment: [facility] performed at: [facility],, [address] [place], [address], Brake Lining Driller: Angela Feng MD,PhD,MANOHAR [facility] Date/Time: [facility] Results Received Date/Time: [facility] Reported Date/Time: FASTING: NO Performed By: #### 1 [id number] #### [facility] Default [address] [place] [address] SEROTYPE 12 (12F) 3.7 Normal [facility] Quarantine Officer Comment on above: Order Comment: [facility] performed at: [facility], [facility],, [facility] [place], , Brake Lining Driller: Angela Feng MD,PhD,MANOHAR [facility] Date/Time: [facility] Results Received Date/Time: [facility] Reported Date/Time: FASTING: NO Performed By: #### 1 [id number] #### [facility] Default [address] [place] [address] SEROTYPE 14 (14) 163.4 Normal [facility] Comment on above: Order Comment: [facility] performed at: [facility], [facility],, [facility] [place], , Brake Lining Driller: Angela Feng MD,PhD,MANOHAR [facility] Date/Time: [facility] Results Received Date/Time: [facility] Reported Date/Time: FASTING: NO Performed By: #### 1 [id number] #### [facility] Default [address] [place] [address] SEROTYPE 17 (17F) 4.6 Normal [facility] Comment on above: Order Comment: [facility] performed at: [facility], [facility],, [address] [place], [place] [address], , Brake Lining Driller: Angela Feng MD,PhD,MANOHAR [facility] Date/Time: [facility] Results Received Date/Time: [facility] Reported Date/Time: FASTING: NO Performed By: #### 1 [id number] #### [facility] Default [address] [place] [address] SEROTYPE 19 (19F) 18.2 Normal [facility] Comment on above: Order Comment: [facility] performed at: [facility], [facility],, [address] [place] [place], [place], , Brake Lining Driller: Angela Feng MD,PhD,MANOHAR [facility] Date/Time: [facility] Results Received Date/Time: [facility] Reported Date/Time: FASTING: NO Performed By: #### 1 [id number] #### [facility] Default [address] [place] [address] SEROTYPE 2 (2) 4.7 Normal [facility] Quarantine Officer Comment on above: Order Comment: [facility] performed at: [facility], [facility],, [address] [place], [place] [address], , Brake Lining Driller: Angela Feng MD,PhD,MANOHAR [facility] Date/Time: [facility] Results Received Date/Time: [facility] Reported Date/Time: FASTING: NO Performed By: #### 1 [id number] #### [facility] Default [address] [place] [address] SEROTYPE 20 (20) 3.8 Normal [facility] Specialist Comment on above: Order Comment: [facility] performed at: [facility], [facility],, [address] [place], [place] [address], , Brake Lining Driller: Angela Feng MD,PhD,MANOHAR [facility] Date/Time: [facility] Results Received Date/Time: [facility] Reported Date/Time: FASTING: NO Performed By: #### 1 [id number] #### [facility] Default [address] [place] [address] SEROTYPE 22 (22F) 4.0 Normal [facility] Specialist Comment on above: Order Comment: [facility] performed at: [facility], [facility],, [address] [place], [place], , Brake Lining Driller: Angela Feng MD,PhD,MANOHAR [facility] Date/Time: [facility] Results Received Date/Time: [facility] Reported Date/Time: FASTING: NO Performed By: #### 1 [id number] #### [facility] Default [address] [place] [address] SEROTYPE 23 (23F) 5.7 Normal [facility] Comment on above: Order Comment: [facility] performed at: [facility], [facility],, [address] [place], [place], , Brake Lining Driller: Angela Feng MD,PhD,MANOHAR [facility] Date/Time: [facility] Results Received Date/Time: [facility] Reported Date/Time: FASTING: NO Performed By: #### 1 [id number] #### [facility] Default [address] [place] [address] SEROTYPE 26 (6B) 7.1 Normal [facility] Specialist Comment on above: Order Comment: [facility] performed at: [facility], [facility],, [facility] [place], , Brake Lining Driller: Angela Feng MD,PhD,MANOHAR [facility] Date/Time: [facility] Results Received Date/Time: [facility] Reported Date/Time: FASTING: NO Performed By: #### 1 [id number] #### [facility] Default [address] [place] [address] SEROTYPE 3 (3) 5.2 Normal [facility] Specialist Comment on above: Order Comment: [facility] performed at: [facility], [facility],, [address] [place], [place], , Brake Lining Driller: Angela Feng MD,PhD,MANOHAR [facility] Date/Time: [facility] Results Received Date/Time: [facility] Reported Date/Time: FASTING: NO Performed By: #### 1 [id number] #### [facility] Default [address] [place] [address] SEROTYPE 34 (10A) 20.3 Normal [facility] Comment on above: Order Comment: [facility] performed at: [facility], [facility],, [facility] [place], , Brake Lining Driller: Angela Feng MD,PhD,MANOHAR [facility] Date/Time: [facility] Results Received Date/Time: [facility] Reported Date/Time: FASTING: NO Performed By: #### 1 [id number] #### [facility] Default [address] [place] [address] SEROTYPE 4 (4) 2.2 Normal [facility] Comment on above: Order Comment: [facility] performed at: [facility], [facility],, [facility] [place], , Brake Lining Driller: Angela Feng MD,PhD,MANOHAR [facility] Date/Time: [facility] Results Received Date/Time: [facility] Reported Date/Time: FASTING: NO Performed By: #### 1 [id number] #### [facility] Default [address] [place] [address] SEROTYPE 43 (11A) 10.7 Normal [facility] Comment on above: Order Comment: [facility] performed at: [facility], [facility],, [facility] [place], , Brake Lining Driller: Angela Feng MD,PhD,MANOHAR [facility] Date/Time: [facility] Results Received Date/Time: [facility] Reported Date/Time: FASTING: NO Performed By: #### 1 [id number] #### [facility] Default [address] [place] [address] SEROTYPE 5 (5) 2.5 Normal [facility] Specialist Comment on above: Order Comment: [facility] performed at: [facility], [facility],, [address] [place], [place] [address], [place], , Brake Lining Driller: Angela Feng MD,PhD,MANOHAR [facility] Date/Time: [facility] Results Received Date/Time: [facility] Reported Date/Time: FASTING: NO Performed By: #### 1 [id number] #### [facility] Default [address] [place] [address] SEROTYPE 51 (7F) 4.3 Normal [facility] Comment on above: Order Comment: [facility] performed at: [facility], [facility],, [address] [place], [place] [address], , Brake Lining Driller: Angela Feng MD,PhD,MANOHAR [facility] Date/Time: [facility] Results Received Date/Time: [facility] Reported Date/Time: FASTING: NO Performed By: #### 1 [id number] #### [facility] Default [address] [place] [address] SEROTYPE 54 (15B) 9.3 Normal [facility] Comment on above: Order Comment: [facility] performed at: [facility], [facility],, [facility] [place], , Brake Lining Driller: Angela Feng MD,PhD,MANOHAR [facility] Date/Time: [facility] Results Received Date/Time: [facility] Reported Date/Time: FASTING: NO Performed By: #### 1 [id number] #### [facility] Default [address] [place] [address] SEROTYPE 56 (18C) 15.2 [facility] Comment on above: Order Comment: [facility] performed at: [facility], [facility],, [address] [place] [address], , Brake Lining Driller: Angela Feng MD,PhD,MANOHAR [facility] Date/Time: [facility] Results Received Date/Time: [facility] Reported Date/Time: FASTING: NO Performed By: #### 1 [id number] #### [facility] Default [address] [place] [address] SEROTYPE 57 (19A) 1.3 [facility] Comment on above: Order Comment: [facility] performed at: [facility], [facility],, [address] [place] [address], , Brake Lining Driller: Angela Feng MD,PhD,MANOHAR [facility] Date/Time: [facility] Results Received Date/Time: [facility] Reported Date/Time: FASTING: NO Performed By: #### 1 [id number] #### [facility] Default [address] [place] [address] SEROTYPE 68 (9V) 2.5 [facility] Comment on above: Order Comment: [facility] performed at: [facility], [facility],, [address] [place] [address], , Brake Lining Driller: Angela Feng MD,PhD,MANOHAR [facility] Date/Time: [facility] Results Received Date/Time: [facility] Reported Date/Time: FASTING: NO Performed By: #### 1 [id number] #### [facility] Default [address] [place] [address] SEROTYPE 70 (33F) 2.5 [facility] Comment on above: Order Comment: [facility] performed at: , [facility],, [address] [place], [address], Brake Lining Driller: Angela Feng MD,PhD,MANOHAR [facility] Collection Date/Time: [id number] [facility] Results Received Date/Time: [facility] Reported Date/Time: [...] serotype-specific titers may have less robust responses. [facility] uses a multi-analyte immunodetection (MAID) method. The method employs the My eShoe flow cytometric system which measures multiple analytes [...] analytical performance characteristics have been determined by [facility] [employer]. It has not been cleared or approved by FDA. This assay has been validated pursuant to the CLIA regulations and used for clinical purposes. For additional information, please refer to http://education.[facility].[employer]/faq/UBI124 (This link is being provided for informational/ educational purposes only.) Performed By: #### 1 [id number] #### [facility] Default [address] [place] [address] SEROTYPE 8 (8) 9.8 Normal [facility] Quarantine Officer Comment on above: Order Comment: [facility] performed at: , [employer] [facility] [employer]/[facility],, [address] [place] [address], , Brake Lining Driller: Angela Feng MD,PhD,MANOHAR [facility] Date/Time: [facility] Results Received Date/Time: [facility] Reported Date/Time: FASTING: NO Performed By: #### 1 [id number] #### [facility] Default [address] [place] [address] SEROTYPE 9 (9N) 2.8 Normal [facility] Quarantine Officer Comment on above: Order Comment: [facility] performed at: , [facility] [employer],, [address] [place], [place], , Brake Lining Driller: Angela Feng MD,PhD,MANOHAR [facility] Date/Time: [facility] Results Received Date/Time: [facility] Reported Date/Time: FASTING: NO Performed By: #### 1 [id number] #### [facility] Default [address] [place] [address] Office Visit (Pediatric Neur ology)on 05-30-2021 Follow-up [...] updates. My nurse is Yolanda Calvillo at [phone]. 8. 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 She will be at [employer]. She has also been diagnosed IGA [...] Vitals V (more content not included)... Normal [facility] CHEMISTRYOrdered By: SYSTEM SYSTEM on 05-17-2021 Anion gap [Moles/Vol] 11 mmol/L Normal 6 - 16 mEq/L [facility] Calcium [Mass/Vol] 9.3 mg/dL Normal 8.9 - 11. 1 mg/dL [facility] Remisol Chloride [Moles/Vol] 103 mmol/L Normal 101 - 1 11 mmol/L [facility] Remisol CO2 [Moles/Vol] 27 mmol/L Normal 21 - 31 mmol/L [facility] Remisol Creatinine [Mass/Vol] 0.8 mg/dL Normal 0.5 - 1.3 mg/dL [facility] Remisol GFR/1.73 sq M.predicted among blacks MDRD (S/P/Bld) [Vol rate/Area] mL/min/1.73 m2 Normal >=59mL/min/1 .73 m2 [facility] Chem S GFR/1.73 sq M.predicted among non-blacks MDRD (S/P/Bld) [Vol rate/Area] mL/min/1.73 m2 Normal >=59mL/min/1 .73 m2 [facility] Chem S Glucose [Mass/Vol] 152 mg/dL Normal [...] PM) Normal Negative [facility] UA Auto SS [place].plasma/Lithiu m.RBC (Bld) [Mass ratio] >75 /HPF Invalid [...] [facility] UA Auto SS Urobilinogen Qn (U) [id number] {Deny'U}/dL Normal 0.0 - 1.0 EU/dL [facility]A Auto SS WBC Auto Ql (U) Negative (05/17/21 9:31 PM) Normal Negative [facility] UA Auto SS WBC LM.HPF (Urine sed) [#/Area] 0-5 /HPF Normal 0-5/HPF [facility] UA Auto SS Q - Diptheria/Tetanus Abon 0 04-13-2021 DIPHTHERIA ANTITOXOID 0.59 IU/mL Normal Christiano espinoza [place] Quarantine Officer Comment on above: Order Comment: [facility] performed at: [facility], [address], [place], [place], , Brake Lining Driller: Gurmeet Rabago M.D.,PhD [facility] Collection Date/Time: [facility] [...] analytical performance characteristics have been determined by [facility] [place], [place]. It has not been cleared or approved by the U.S. Food and Drug Administration. This assay has been validated pursuant to the CLIA regulations and is used for clinical purposes. Performed By: #### 1 6963X, 15688E, 74268L, 80564R, 49840V, 17642Q, 07387 #### [facility] Default [address] [place] [address] TETANUS ANTITOXOID 0.71 IU/mL Normal Minnie mondragon [place] Quarantine Officer Comment on above: Order Comment: [facility] performed at: [facility], [facility], [address], [place], [place], , Brake Lining Driller: Gurmeet Rabago M.D.,PhD [facility] Date/Time: [facility] [...] analytical performance characteristics have been determined by [facility], [place], [place]. It has not been cleared or approved by the U.S. Food and Drug Administration. This assay has been validated pursuant to the CLIA regulations and is used for clinical purposes. Performed By: #### 1 6963X, 87981M, 81404X, 31321Q, 14460C, 65866K, 52109 #### [facility] Default [address] [place] [address] Q - HIV AB, HIV 1/2, EIAon 0 04-13-2021 HIV AG/AB, 4TH GEN Non-Reactive Normal NON-REACTIVE No rthern [place] Quarantine Officer Comment on above: Order Comment: [facility] performed at: [facility], [facility], [address] [facility], [address] [place], [address], Brake Lining Driller: David Mancilla MD [facility] Collection Date/Time: [facility] [...] purpose. For additional information please refer to http://education.[facility].[employer]ner[employer]/faq/PVD278 (This link is being provided for informational/ educational purposes only.) The performance of this assay has not been clinically validated in patients less than 2 years old. Performed By: #### 1 6963X, 20828H, 79272Z, 17411W, 36504T, 66855R, 56192 #### [facility] Default [address] [place] [address] Q - IGA,SERUMon 04-13-2021 IMMUNOGLOBULIN A 58 mg/dL Normal 47-310 [facility] Specialist Comment on above: Order Comment: [facility] performed at: [place], [facility], [address] [place] [address], [address] [place] [address], [address] [place] [address], Brake Lining Driller: David Mancilla MD [facility] Collection Date/Time: [facility] Results Received Date/Time: [facility] Reported Date/Time: Performed By: #### 1 6963X, 82800D, 33298I, 16763Z, 17066K, 25272T, 47195 #### [facility] Default [address] [place] [address] Q - IGE,SERUMon 04-13-2021 IMMUNOGLOBULIN E 7 kU/L Normal [facility] Comment on above: Order Comment: [facility] performed at: [place], [facility], [address] [facility], [address] [place] [address], [address] [place] [address], Brake Lining Driller: David Mancilla MD [facility] Date/Time: [facility] Results Received Date/Time: [facility] Reported Date/Time: Performed By: #### 1 6963X, 44427R, 40288J, 59776Q, 84972V, 39090R, 63869 #### [facility] Default [address] [place] [address] Q - IGG,SERUMon 04-13-2021 IMMUNOGLOBULIN G 912 mg/dL Normal 600-1640 [facility] Specialist Comment on above: Order Comment: [facility] performed at: [facility], [facility], [address], [address] [place] [address], [address], Brake Lining Driller: David Mancilla MD [facility] Date/Time: [facility] Results Received Date/Time: [facility] Reported Date/Time: Performed By: #### 1 6963X, 81073J, 29549K, 96939J, 25725N, 30731O, 96829 #### [facility] Default [address] [place] [address] Q - IGM,SERUMon 04-13-2021 IMMUNOGLOBULIN M 73 mg/dL Normal 50-300 [facility] Specialist Comment on above: Order Comment: [facility] performed at: [facility], [facility], [address], [address] [place] [address], [address], Brake Lining Driller: David Mancilla MD [facility] Collection Date/Time: [facility] Results Received Date/Time: [facility] Reported Date/Time: Performed By: #### 1 6963X, 63577U, 46005K, 89202V, 27418U, 54074P, 15501 #### [facility] Default [address] [place] [address] Q - Strep pneumo Ab 23 serot ypeson 04-13-2021 SEROTYPE 1 (1) 0.8 Normal [facility] Specialist Comment on above: Order Comment: [facility] performed at: [facility], [facility],, [address] [place], [address], Brake Lining Driller: Angela Feng MD,PhD,MANOHAR [facility] Collection Date/Time: [facility] Results Received Date/Time: [facility] Reported Date/Time: Performed By: #### 1 6963X, 33481R, 65577K, 88251H, 24079U, 00491B, 51870 #### [facility] Default [address] [place] [address] SEROTYPE 12 (12F) <0.3 Normal [facility] Comment on above: Order Comment: [facility] performed at: [facility], [facility],, [address] [place] [address], , Brake Lining Driller: Angela Feng MD,PhD,MANOHAR [facility] Collection Date/Time: [facility] Results Received Date/Time: [facility] Reported Date/Time: Performed By: #### 1 6963X, 84202C, 97014G, 51144D, 36104W, 45149L, 19791 #### [facility] Default [address] [place] [address] SEROTYPE 14 (14) 1.1 Normal [facility] Comment on above: Order Comment: [facility] performed at: [facility], [facility],, [address] [place] [address], , Brake Lining Driller: Angela Feng MD,PhD,MANOHAR [facility] Collection Date/Time: [facility] Results Received Date/Time: [facility] Reported Date/Time: Performed By: #### 1 6963X, 83014Z, 03720E, 82791P, 57605H, 25533V, 26092 #### [facility] Default [address] [place] [address] SEROTYPE 17 (17F) 1.9 [facility] Comment on above: Order Comment: [facility] Testing performed at: [facility], [facility],, [address] [place] [address], , Brake Lining Driller: Angela Feng MD,PhD,MANOHAR [facility] Collection Date/Time: [facility] Results Received Date/Time: [facility] Reported Date/Time: Performed By: #### 1 6963X, 33169O, 70599C, 47874B, 14564O, 37388M, 05626 #### [facility] Default [address] [place] [address] SEROTYPE 19 (19F) 2.3 Normal [facility] Comment on above: Order Comment: [facility] performed at: [facility], [facility],, [address] [place] [address], , Brake Lining Driller: Angela Feng MD,PhD,MANOHAR [facility] Collection Date/Time: [facility] Results Received Date/Time: [facility] Reported Date/Time: Performed By: #### 1 6963X, 01676G, 35071G, 11601Z, 06614I, 65428R, 67830 #### [facility] [address] [place] [address] SEROTYPE 2 (2) <0.3 Normal [facility] Comment on above: Order Comment: [facility] Testing performed at: [facility], [facility],, [address] [place] [address], , Brake Lining Driller: Angela Feng MD,PhD,MANOHAR [facility] Collection Date/Time: [facility] Results Received Date/Time: [facility] Reported Date/Time: Performed By: #### 1 6963X, 94955H, 27893F, 90870G, 01347Y, 52415E, 04739 #### [facility] Default [address] [place] [address] SEROTYPE 20 (20) 1.0 [facility] Comment on above: Order Comment: [facility] Testing performed at: [facility], [facility],, [address] [place] [address], , Brake Lining Driller: Angela Feng MD,PhD,MANOHAR [facility] Collection Date/Time: [facility] Results Received Date/Time: [facility] Reported Date/Time: Performed By: #### 1 6963X, 52210E, 29562M, 83880J, 20369J, 37507G, 36768 #### [facility] Default [address] [place] [address] SEROTYPE 22 (22F) <0.3 Normal [facility] Comment on above: Order Comment: [facility] performed at: [facility], [facility],, [address] [place] [address], , Brake Lining Driller: Angela Feng MD,PhD,MANOHAR [facility] Collection Date/Time: [facility] Results Received Date/Time: [facility] Reported Date/Time: Performed By: #### 1 6963X, 01370K, 91945J, 15135R, 49786F, 94049O, 86776 #### [facility] Default [address] [place] [address] SEROTYPE 23 (23F) 3.6 Normal [facility] Comment on above: Order Comment: [facility] performed at: [facility], [facility],, [address] [place] [address], , Brake Lining Driller: Angela Feng MD,PhD,MANOHAR [facility] Collection Date/Time: [facility] Results Received Date/Time: [facility] Reported Date/Time: Performed By: #### 1 6963X, 69495R, 13078H, 60743Y, 10148S, 12028L, 19189 #### [facility] Default [address] [place] [address] SEROTYPE 26 (6B) 4.5 Normal [facility] Comment on above: Order Comment: [facility] Testing performed at: [facility], [facility],, [address] [place], [place], , Brake Lining Driller: Angela Feng MD,PhD,MANOHAR [facility] Collection Date/Time: [facility] Results Received Date/Time: [facility] Reported Date/Time: Performed By: #### 1 6963X, 82635O, 47756A, 73615Y, 46577S, 05322I, 32699 #### [facility] Default [address] [place] [address] SEROTYPE 3 (3) 1.7 Normal [facility] Quarantine Officer Comment on above: Order Comment: [facility] Testing performed at: [facility], [facility],, [address] [place] [address], , Brake Lining Driller: Angela Feng MD,PhD,MANOHAR [facility] Collection Date/Time: [facility] Results Received Date/Time: [facility] Reported Date/Time: Performed By: #### 1 6963X, 47024L, 39001C, 97181M, 53167L, 40169B, 46713 #### [facility] Default [address] [place] [address] SEROTYPE 34 (10A) 1.6 Normal [facility] Quarantine Officer Comment on above: Order Comment: [facility] Testing performed at: [facility], [facility],, [address] [place] [address], , Brake Lining Driller: Angela Feng MD,PhD,MANOHAR [facility] Collection Date/Time: [facility] Results Received Date/Time: [facility] Reported Date/Time: Performed By: #### 1 6963X, 14010B, 71295N, 49076Q, 86872B, 40511R, 50840 #### [facility] Default [address] [place] [address] SEROTYPE 4 (4) 0.4 Normal [facility] Quarantine Officer Comment on above: Order Comment: [facility] Testing performed at: [facility], [facility],, [facility] [place], , Brake Lining Driller: Angela Feng MD,PhD,MANOHAR [facility] Collection Date/Time: [facility] Results Received Date/Time: [facility] Reported Date/Time: Performed By: #### 1 6963X, 11232I, 42313D, 65153Q, 33418C, 24980K, 07022 #### [facility] Default [address] [place] [address] SEROTYPE 43 (11A) 0.9 Normal [facility] Quarantine Officer Comment on above: Order Comment: [facility] Testing performed at: [facility], [facility],, [facility] [place], , Brake Lining Driller: Angela Feng MD,PhD,MANOHAR [facility] Collection Date/Time: [facility] Results Received Date/Time: [facility] Reported Date/Time: Performed By: #### 1 6963X, 48264G, 08215C, 48656U, 26003H, 01774F, 74087 #### [facility] Default [address] [place] [address] SEROTYPE 5 (5) 0.6 Normal [facility] Quarantine Officer Comment on above: Order Comment: [facility] Testing performed at: [facility], [facility],, [address] [place], [place], , Brake Lining Driller: Angela Feng MD,PhD,MANOHAR [facility] Collection Date/Time: [facility] Results Received Date/Time: [facility] Reported Date/Time: Performed By: #### 1 6963X, 81197V, 02512U, 95722K, 91813M, 26782O, 78735 #### [facility] Default [address] [place] [address] SEROTYPE 51 (7F) 0.4 Normal [facility] Comment on above: Order Comment: [facility] Testing performed at: [facility], [facility],, [address] [place], [place], , Brake Lining Driller: Angela Feng MD,PhD,MANOHAR [facility] Collection Date/Time: [facility] Results Received Date/Time: [facility] Reported Date/Time: Performed By: #### 1 6963X, 32527U, 38626Z, 88124U, 18272I, 37462V, 57464 #### [facility] Default [address] [place] [address] SEROTYPE 54 (15B) <0.3 Normal [facility] Comment on above: Order Comment: [facility] Testing performed at: [facility], [facility],, [address] [place], [place], , Brake Lining Driller: Angela Fneg MD,PhD,MANOHAR [facility] Collection Date/Time: [facility] Results Received Date/Time: [facility] Reported Date/Time: Performed By: #### 1 6963X, 76565Y, 72530K, 90231F, 65257K, 45577G, 65819 #### [facility] Default [address] [place] [address] SEROTYPE 56 (18C) 1.1 Normal [facility] Comment on above: Order Comment: [facility] Testing performed at: [facility], [facility],, [address] [place], [place], , Brake Lining Driller: Angela Feng MD,PhD,MANOHAR [facility] Collection Date/Time: [facility] Results Received Date/Time: [facility] Reported Date/Time: Performed By: #### 1 6963X, 77312R, 68964G, 42562D, 51699Z, 39940P, 53382 #### [facility] Default [address] [place] [address] SEROTYPE 57 (19A) 0.4 Normal [facility] Comment on above: Order Comment: [facility] Testing performed at: [facility], [facility],, [address] [place] [address], , Brake Lining Driller: Angela Feng MD,PhD,MANOHAR [facility] Collection Date/Time: [facility] Results Received Date/Time: [facility] Reported Date/Time: Performed By: #### 1 6963X, 79413R, 33143G, 23298G, 41294F, 87375R, 33269 #### [facility] Default [address] [place] [address] SEROTYPE 68 (9V) 0.5 Normal [facility] Comment on above: Order Comment: [facility] Testing performed at: [facility], [facility],, [address] [place] [address], , Brake Lining Driller: Angela Feng MD,PhD,MANOHAR [facility] Collection Date/Time: [facility] Results Received Date/Time: [facility] Reported Date/Time: Performed By: #### 1 6963X, 51308D, 37766D, 07203S, 31642I, 37790W, 19154 #### [facility] Default [address] [place] [address] SEROTYPE 70 (33F) 0.3 Normal [facility] Specialist Comment on above: Order Comment: [facility] Testing performed at: [facility], [facility],, [address] [place] [address], [address], Brake Lining Driller: Angela Feng MD,PhD,MANOHAR [facility] Collection Date/Time: Quest [...] serotype-specific titers may have less robust responses. [facility] uses a multi-analyte immunodetection (MAID) method. The method employs the My eShoe flow cytometric system which measures multiple analytes [...] analytical performance characteristics have been determined by [facility]. It has not been cleared or approved by FDA. This assay has been validated pursuant to the CLIA regulations and used for clinical purposes. For additional information, please refer to http://education.[facility].com/faq/RXI650 (This link is being provided for informational/ educational purposes only.) Performed By: #### 1 6963X, 42150N, 63430G, 65816N, 78657Q, 04419Y, 17749 #### [facility] Default [address] [place] [address] SEROTYPE 8 (8) 0.3 Normal [facility] Quarantine Officer Comment on above: Order Comment: [facility] Testing performed at: [facility], [facility],, [address] [place] [address], , Brake Lining Driller: Angela Feng MD,PhD,MANOHAR [facility] Collection Date/Time: [facility] Results Received Date/Time: [facility] Reported Date/Time: Performed By: #### 1 6963X, 15814G, 93297S, 79515P, 17172F, 62104S, 11949 #### [facility] Default [address] [place] [address] SEROTYPE 9 (9N) <0.3 Normal [facility] Specialist Comment on above: Order Comment: [facility] Testing performed at: [facility], [facility],, [address] [place] [address], , Brake Lining Driller: Angela Feng MD,PhD,MANOHAR [facility] Collection Date/Time: [facility] Results Received Date/Time: [facility] Reported Date/Time: Performed By: #### 1 6963X, 87698H, 34550P, 52769N, 84613F, 18765M, 08743 #### [facility] Default [address] [place] [address] Chart Updateon 04-12-2021 Chart Update Chart Update Shiv had a migraine today and was unable to attend class. Signatures Electronically signed by : Chica Whitmore, PENSION CONSULTANT-STUDENT SUCCESS COUNSELOR PENSION CONSULTANT-CONSUMER ATTORNEY; Apr 12 2021 3:16PM EST (Author) Normal [facility] COVID + FLU Quick Testingon 04-04-2021 SARS-CoV-2 (COVID-19) RNA PAMELA+probe Ql (Unsp spec) Negative [facility] Other COVID + FLU Quick Testing Negative [facility] Other Office Visit (Pediatric Neur ology)on 03-22-2021 Follow-up visit Diagnoses/Problems Migraine (346.90) (G43.909) Anxiety (300.00) (F41.9) Orders Migraine Start: Verapamil HCl - 40 MG Oral Tablet; TAKE 1 TABLET 3 times daily MRI Brain without Contrast; Status:Hold For - Scheduling; Requested for:[id number]; Does patient have exposure to metal fragments? : N Radiologist to Determine Optimal Study : Y Requesting physician's phone/pager number? : [phone] Does the patient have a Cochlear Implant, Pacemaker, Defibrilator, Pacing Wire, Brain Aneurysm Clip, Implanted Nerve or Bone Graft Simulator, Implanted Breast Tissue Field Case Manager, Glucose Monitor, or Neulasta Device? : [...] updates. My nurse is Yolanda Calvillo at [phone]. 8. Follow up in 2-3 months with [...] at headach (more content not included)... Normal [facility] XR Abdomen Single View (KUB) *on 03-08-2021 XR Abdomen Single View (KUB)* HISTORY: Nausea and generalized abdominal pain. Chronic constipation. COMPARISON: CT 11/12/2019 RESULT: Nonspecific nondilated bowel gas pattern. Feces throughout the colon. No abnormal calcifications. No acute osseous findings. Lung bases unremarkable. No other significant abnormality. IMPRESSION: No acute radiographic findings. Report reported and signed by Butch Sanchez on 03/08/2021 194 Normal [facility] Quarantine Officer COVID Quick Testingon 2021 Result Negative [facility] Other COVID Quick Testingon 2020 Result Negative [facility] Other COVID Quick Testingon 2020 Result Negative [facility] Other Quick Strepon 11-19-2020 S. pyogenes Org specific cx Ql (Throat) Negative [facility] Other Quick Strep [facility] Other CNTHERAPYon 11-13-2020 CNTHERAPY OT/PT/Speech Visit (PTAMHE) SHIV EVANGELISTA ([id number]) 2 F Date Time Provider Department 11/13/20 10:45 AM LYNN POTTS ELIJAH Date Time Provider Department Center 11/13/2020 10:45 AM [id number], MEGAN [facility] for Visit: Physical Therapy [503] PT [...] 2 tablets by mouth twice daily. Normal [facility] CNTHERAPYon 11-09-2020 CNTHERAPY OT/PT/Speech Visit (PHYTMN) SHIV EVANGELISTA ([id number]) 2 F Date Time Provider Department 11/09/20 11:30 AM ALEXANDRA SUAREZ Date Time Provider Department Center 11/09/2020 11:30 AM [id number] SUAREZ C Bldg Reason for Visit: PT [...] Planned: 8 Planned Treatment Interventions: Therapeutic exercise (40646);Neuromuscula r re-education (11087);Manual therapy (78922);Therapeutic activities (70941);Self-shelter management (14688);Patient/Fami ly/Caregiver Education;Biofeedbac k Pelvic (07194,39035) PLAN FOR NEXT VISIT: toileting positions, colon [...] Family Intake Information: Prescription present 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 Normal [facility] Office Visit (Pediatric Neur ology)on 08-30-2020 [...] updates. My nurse is Yolanda Calvillo at [phone]. 8. Follow up in 2-3 months with updates in the interim. Chief Complaint Follow up POTS Accompanied by mother. History of Present Illness Shiv is a 20 year old young woman with POTS, anxiety and headaches. She is taking 2 summer courses. [facility] [employer] [facility] and is taking her courses through [employer] [facility]. She stopped all her meds because [...] holidays as well. She still works at [employer]. She denies any thoughts about hurting herself [...] MG Oral Tablet Vitals Vital Signs Recorded: [id number] 01:02PM Dlvqwa745 lb 7.31 oz 2-20 Weight [id number] % Physical Exam Constitutional - Well dressed, [...] bilaterally. Fundoscopi (more content not included)... Normal [facility] Psychiatry Adulton 1 Psychiatry Adult No report was sent Normal [facility] Provider Orderson 01-17-2020 Provider Orders [id number] Normal [facility] Vital Signs Date Time Vital Sign Value Performing Clinician Facility 02-25-2024 15:37-0500 Body mass index (BMI) [Ratio] 27.09 kg/m2 [facility] Alondra DO Work Phone: [facility] 02-25-2024 15:37-0500 Body weight 67.19 kg Navid Alondra DO Work Phone: [facility] 02-25-2024 15:37-0500 Diastolic blood pressure 66 mm[Hg] Navid Alondra DO Work Phone: [facility] 02-25-2024 15:37-0500 Systolic blood pressure 114 mm[Hg] Navid Alondra DO Work Phone: [facility] 02-09-2024 16:38-0500 Diastolic blood pressure 60 mm[Hg] Rahel Didion FILLETER Work Phone: [facility] 02-09-2024 16:38-0500 Heart rate 78 /min Rahel Didion FILLETER Work Phone: [facility] 02-09-2024 16:38-0500 Respiratory rate 16 /min Rahel Didion FILLETER Work Phone: [facility] 02-09-2024 16:38-0500 SaO2% (BldA) [Mass fraction] 98 % Rahel Didion FILLETER Work Phone: [facility] 02-09-2024 16:38-0500 Systolic blood pressure 118 mm[Hg] Rahel Didion FILLETER Work Phone: [facility] 01-22-2024 16:40-0500 Body mass index (BMI) [Ratio] 26.48 kg/m2 Linda MITCHELL Work Phone: [facility] 01-22-2024 16:40-0500 Body weight 65.68 kg Linda MITCHELL Work Phone: [facility] 01-22-2024 16:40-0500 Diastolic blood pressure 60 mm[Hg] Linda MITCHELL Work Phone: [facility] 01-22-2024 16:40-0500 Systolic blood pressure 118 mm[Hg] Linda MITCHELL Work Phone: [facility] 01-12-2024 15:14-0500 Body height 157.5 cm Ok Tyson DO Work Phone: [facility] 01-12-2024 15:14-0500 Body mass index (BMI) [Ratio] 25.61 kg/m2 Ok Tyson DO Work Phone: [facility] 01-12-2024 15:14-0500 Body weight 63.5 kg Ok Tyson DO Work Phone: [facility] 01-12-2024 15:14-0500 Diastolic blood pressure 60 mm[Hg] Ok Tyson DO Work Phone: [facility] 01-12-2024 15:14-0500 Heart rate 87 /min Ok Tyson DO Work Phone: [facility] 01-12-2024 15:14-0500 SaO2% (BldA) [Mass fraction] 99 % Ok Tyson DO Work Phone: [facility] 01-12-2024 15:14-0500 Systolic blood pressure 114 mm[Hg] Ok Tyson DO Work Phone: [facility] 01-02-2024 17:15-0500 Body mass index (BMI) [Ratio] 25.24 kg/m2 Yaritza Gonzalez FILLETER Work Phone: [facility] 01-02-2024 17:15-0500 Body temperature 98.01 [degF] Yaritza Gonzalez FILLETER Work Phone: [facility] 01-02-2024 17:15-0500 Body weight 62.6 kg Yaritza Gonzalez FILLETER Work Phone: [facility] 01-02-2024 17:15-0500 Heart rate 100 /min Yaritza Gonzalez FILLETER Work Phone: [facility] 01-02-2024 17:15-0500 SaO2% (BldA) [Mass fraction] 99 % Yaritza Gonzalez FILLETER Work Phone: [facility] 12-24-2023 15:56-0500 Body mass index (BMI) [Ratio] 25.13 kg/m2 Navid Alondra DO Work Phone: [facility] 12-24-2023 15:56-0500 Body weight 62.32 kg Navid Alondra DO Work Phone: [facility] 12-24-2023 15:56-0500 Diastolic blood pressure 74 mm[Hg] Navid Alondra DO Work Phone: [facility] 12-24-2023 15:56-0500 Systolic blood pressure 116 mm[Hg] Navid Alondra DO Work Phone: [facility] 12-24-2023 13:55-0500 Body mass index (BMI) [Ratio] 25.28 kg/m2 Suzan Patrick FILLETER Work Phone: [facility] 12-24-2023 13:55-0500 Body temperature 98.71 [degF] Suzan Patrick FILLETER Work Phone: [facility] 12-24-2023 13:55-0500 Body weight 62.7 kg Suzan Patrick FILLETER Work Phone: [facility] 12-24-2023 13:55-0500 Diastolic blood pressure 62 mm[Hg] Suzan Patrick FILLETER Work Phone: [facility] 12-24-2023 13:55-0500 Heart rate 96 /min Suzan Patrick FILLETER Work Phone: [facility] 12-24-2023 13:55-0500 SaO2% (BldA) [Mass fraction] 97 % Suzan Patrick FILLETER Work Phone: [facility] 12-24-2023 13:55-0500 Systolic blood pressure 118 mm[Hg] Suzan Patrick FILLETER Work Phone: [facility] 11-25-2023 14:49-0400 Body mass index (BMI) [Ratio] 25.15 kg/m2 Navid Alondra DO Work Phone: [facility] 11-25-2023 14:49-0400 Body weight 62.37 kg Navid Alondra DO Work Phone: [facility] 11-25-2023 14:49-0400 Diastolic blood pressure 68 mm[Hg] Navid Alondra DO Work Phone: [facility] 11-25-2023 14:49-0400 Systolic blood pressure 118 mm[Hg] Navid Alondra DO Work Phone: [facility] 10-23-2023 15:19-0400 Body mass index (BMI) [Ratio] 24.4 kg/m2 [facility] Nurse [facility] 10-23-2023 15:19-0400 Body weight 60.51 kg [facility] Nurse [facility] 10-23-2023 15:19-0400 Diastolic blood pressure 70 mm[Hg] [facility] Nurse [facility] 10-23-2023 15:19-0400 Systolic blood pressure 120 mm[Hg] [facility] Nurse [facility] 07-04-2023 10:15-0400 Body height 157.48 cm DO Ok Marbella Work Phone: [facility] [place] 07-04-2023 10:15-0400 Body mass index (BMI) [Ratio] 23.8 kg/m2 DO Ok Marbella Work Phone: [facility] [place] 07-04-2023 10:15-0400 Body weight 58.96 kg DO Ok Giacomok Work Phone: [facility] [place] 07-04-2023 10:15-0400 Diastolic blood pressure 70 mm[Hg] DO Ok Giacomok Work Phone: [facility] [place] 07-04-2023 10:15-0400 Heart rate 72 /min DO Ok Charleschak Work Phone: [facility] [place] 07-04-2023 10:15-0400 Respiratory rate 18 /min DO Ok Giacomok Work Phone: [facility] [place] 07-04-2023 10:15-0400 SaO2% (BldA) [Mass fraction] 98 % DO Ok Vaschak Work Phone: [facility] [place] 07-04-2023 10:15-0400 Systolic blood pressure 124 mm[Hg] DO Ok Vaschak Work Phone: [facility] [place] 09-20-2022 08:00-0400 Body temperature 97.9 [degF] DO Ok Giacomok Work Phone: [facility] [place] 09-20-2022 08:00-0400 Diastolic blood pressure 74 mm[Hg] DO Ok Vaschak Work Phone: [facility] [place] 09-20-2022 08:00-0400 Heart rate 73 /min DO Ok Giacomok Work Phone: [facility] [place] 09-20-2022 08:00-0400 Respiratory rate 18 /min DO Ok Giacomok Work Phone: [facility] [place] 09-20-2022 08:00-0400 SaO2% (BldA) [Mass fraction] 98 % DO Ok Giacomok Work Phone: [facility] [place] 09-20-2022 08:00-0400 Systolic blood pressure 118 mm[Hg] DO Ok Giacomok Work Phone: [facility] [place] 09-18-2022 08:29-0400 Body height 157.48 cm DO Ok Giacomok Work Phone: [facility] [place] 09-18-2022 08:29-0400 Body weight 72.57 kg DO Ok Giacomok Work Phone: [facility] [place] 08-10-2022 17:06-0400 Diastolic blood pressure 78 mm[Hg] DO Ok Charleschak Work Phone: [facility] [place] 08-10-2022 17:06-0400 Heart rate 105 /min DO Ok Charleschak Work Phone: [facility] [place] 08-10-2022 17:06-0400 Systolic blood pressure 133 mm[Hg] DO Ok Charleschak Work Phone: [facility] [place] 08-10-2022 17:00-0400 Respiratory rate 16 /min DO Ok Tyson Work Phone: [facility] [place] 08-10-2022 16:38-0400 SaO2% (BldA) [Mass fraction] 98 % DO Ok Tyson Work Phone: [facility] [place] 11-25-2021 23:45-0400 Diastolic blood pressure 71 mm[Hg] [facility] 11-25-2021 23:45-0400 Heart rate 77 /min [facility] 11-25-2021 23:45-0400 Hourly Rounding [facility] 11-25-2021 23:45-0400 Respiratory rate 18 /min [facility] 11-25-2021 23:45-0400 SaO2% (BldA) [Mass fraction] 100 % [facility] 11-25-2021 23:45-0400 Systolic blood pressure 105 mm[Hg] [facility] 11-25-2021 22:00-0400 Diastolic blood pressure 83 mm[Hg] [facility] 11-25-2021 22:00-0400 Heart rate 69 /min [facility] 11-25-2021 22:00-0400 Hourly Rounding [facility]ray [facility] 11-25-2021 22:00-0400 Respiratory rate 14 /min [facility] 11-25-2021 22:00-0400 Systolic blood pressure 123 mm[Hg] [facility] 11-25-2021 19:00-0400 Body temperature 98.42 [degF] [facility] 11-25-2021 19:00-0400 Diastolic blood pressure 81 mm[Hg] [facility] 11-25-2021 19:00-0400 Heart rate 79 /min [facility] 11-25-2021 19:00-0400 Hourly Rounding [facility] 11-25-2021 19:00-0400 Respiratory rate 12 /min [facility] 05-30-2021 12:44-0400 Body height 160 cm Terence Pyle Work Phone: QM-Gidwzhhpy-Tkyjzcu y H DO Work Phone: 05-30-2021 12:44-0400 Body mass index (BMI) [Ratio] 19.65 kg/m2 Terence Pyle Work Phone: IJ-Kbmknotta-Wqzdjfu y H DO Work Phone: 05-30-2021 12:44-0400 Body surface area Derived from formula 1.5 m2 Terence Pyle Work Phone: PR-Yhqdwwrwq-Raydaoa y H DO Work Phone: 05-30-2021 12:44-0400 Body temperature 98.5 [degF] Terence Pyle Work Phone: VZ-Nqboafhsg-Hqewmjv y H DO Work Phone: 05-30-2021 12:44-0400 Body weight 50.3 kg Terence Pyle Work Phone: ZR-Ntqyeptyc-Jnreohv y H DO Work Phone: 05-30-2021 12:44-0400 Diastolic blood pressure 74 mm[Hg] Terence Pyle Work Phone: LV-Uivuazgmz-Nvwxscb y H DO Work Phone: 05-30-2021 12:44-0400 Heart rate 74 /min Terence Pyle Work Phone: TI-Cceapzvgb-Histfwk y H DO Work Phone: 05-30-2021 12:44-0400 Systolic blood pressure 120 mm[Hg] Terence Pyle Work Phone: UL-Avuizuemb-Tvbwbtn y H DO Work Phone: 05-17-2021 23:00-0400 Diastolic blood pressure 61 mm[Hg] [facility] 05-17-2021 23:00-0400 Heart rate 81 /min [facility] 05-17-2021 23:00-0400 SaO2% (BldA) [Mass fraction] 97 % [facility] 05-17-2021 23:00-0400 Systolic blood pressure 106 mm[Hg] [facility] 05-17-2021 20:48-0400 Body temperature 98.6 [degF] [facility] 05-17-2021 20:48-0400 Diastolic blood pressure 83 mm[Hg] [facility] 05-17-2021 20:48-0400 Heart rate 97 /min [facility] 05-17-2021 20:48-0400 Respiratory rate 16 /min [facility] 05-17-2021 20:48-0400 SaO2% (BldA) [Mass fraction] 98 % [facility] 05-17-2021 20:48-0400 Systolic blood pressure 128 mm[Hg] [facility] 04-04-2021 14:45-0500 Body height 157.48 cm Albert [place] Other [employer] Other 04-04-2021 14:45-0500 Body mass index (BMI) [Ratio] 20.3 kg/m2 Albert White Other [employer] Other 04-04-2021 14:45-0500 Body temperature 100 [degF] Albert White Other [employer] Other 04-04-2021 14:45-0500 Body weight 50.35 kg Albert White Other [employer] Other 04-04-2021 14:45-0500 Respiratory rate 16 /min Albert White Other [employer] Other 04-04-2021 14:45-0500 SaO2% (BldA) [Mass fraction] 99 % Albert hWite Other [employer] Other 2021 10:00-0500 Body height 157.48 cm Pankaj Berger Other [employer] Other 2021 10:00-0500 Body mass index (BMI) [Ratio] 20.3 kg/m2 Pankaj Berger Other [employer] Other 2021 10:00-0500 Body weight 50.35 kg Pankaj Berger Other [employer] Other 2021 10:00-0500 Diastolic blood pressure 67 mm[Hg] Pankaj Berger Other [employer] Other 2021 10:00-0500 Systolic blood pressure 108 mm[Hg] Pankaj Berger Other [employer] Other 12-13-2020 13:10-0400 Body height 157.48 cm Chacho Domingo Other [employer] Other 12-13-2020 13:10-0400 Body mass index (BMI) [Ratio] 21.03 kg/m2 Chacho Domingo Other [employer] Other 12-13-2020 13:10-0400 Body temperature 98.4 [degF] Chacho Domingo Other [employer] Other 12-13-2020 13:10-0400 Body weight 52.16 kg Chacho Domingo Other [employer] Other 12-13-2020 13:10-0400 Diastolic blood pressure 81 mm[Hg] Chacho Domingo Other [employer] Other 12-13-2020 13:10-0400 SaO2% (BldA) [Mass fraction] 100 % Chacho Domingo Other [employer] Other 12-13-2020 13:10-0400 Systolic blood pressure 127 mm[Hg] Chacho Domingo Other [employer] Other 11-19-2020 13:15-0400 Body height 157.48 cm Albert White Other [employer] Other 11-19-2020 13:15-0400 Body mass index (BMI) [Ratio] 20.12 kg/m2 Albert White Other [employer] Other 11-19-2020 13:15-0400 Body temperature 98.9 [degF] Albert White Other [employer] Other 11-19-2020 13:15-0400 Body weight 49.9 kg Albert White Other [employer] Other 11-19-2020 13:15-0400 Diastolic blood pressure 91 mm[Hg] Albert White Other [employer] Other 11-19-2020 13:15-0400 SaO2% (BldA) [Mass fraction] 100 % Albert White Other [employer] Other 11-19-2020 13:15-0400 Systolic blood pressure 149 mm[Hg] Albert White Other [employer] Other 11-06-2020 15:00-0400 Body weight 51.26 kg Pankaj Berger Other [employer] Other 08-30-2020 13:02-0400 Body weight 56 kg Terence Pyle Work Phone: JF-Zinevvjbqa-Pvqhfj nds Work Phone: 08-30-2020 13:02-0400 42 1 Terence Pyle Work Phone: MD-Dqiptbromq-Dlrxqi nds Work Phone: Comment on above: 2-20_WPerc 11-05-2019 12:33-0400 BMI (Body Mass Index) 22.76 kg/m2 Chica HOPEQF-Kgikgkvghv-Qhvjsq ogy-Admin RBC 585 Work Phone: 11-05-2019 12:33-0400 Body weight 56.81 kg Chica Whitmore FP-Jynchfmqmj-C eurol ogy-Admin RBC 585 Work Phone: 11-05-2019 12:33-0400 BP Diastolic 77 mm[Hg] Chica Haim JU-Ynmoauqslp-T eurol ogy-Admin RBC 585 Work Phone: 11-05-2019 12:33-0400 BP Systolic 127 mm[Hg] Chica Haim XG-Xhoobwmdwi-O eurol ogy-Admin RBC 585 Work Phone: 11-05-2019 12:33-0400 BSA (Body Surface Area) 1.57 m2 Chica Haim ZR-Pajboqztjr-Mlehpx ogy-Admin RBC 585 Work Phone: 11-05-2019 12:33-0400 Height 158 cm Chica Haim VG-Iydsexccae-X eurol ogy-Admin RBC 585 Work Phone: 11-05-2019 12:33-0400 21 1 Chica Haim BN-Mdjsgyidcc-C eurol ogy-Admin RBC 585 Work Phone: Comment on above: 2-20 Stature Percentile 11-05-2019 12:33-0400 49 1 Chica Haim HE-Ulmrqjczwf-F eurol ogy-Admin RBC 585 Work Phone: Comment on above: 2-20 Weight Percentile 11-05-2019 12:33-0400 64 1 Chica Haim LI-Mxyslfpkvr-K eurol ogy-Admin RBC 585 Work Phone: Comment on above: BMI Percentile 08-25-2019 12:37-0400 BMI (Body Mass Index) 22.79 kg/m2 Chica Haim FA-Cfrbhtwmsc-Wxglnb og-Admin RBC 585 Work Phone: 08-25-2019 12:37-0400 Body weight 56.9 kg Chica Haim VI-Yxckgpytqg-V eurol og-Admin RBC 585 Work Phone: 08-25-2019 12:37-0400 BP Diastolic 76 mm[Hg] Chica Haim UV-Jhdivgufsk-F eurol og-Admin RBC 585 Work Phone: 08-25-2019 12:37-0400 BP Systolic 126 mm[Hg] Chica Finkwell FW-Jsnnvuffvu-S eurol og-Admin RBC 585 Work Phone: 08-25-2019 12:37-0400 BSA (Body Surface Area) 1.57 m2 Chica Haim XD-Dlzgofnpor-Mgiwbf og-Admin RBC 585 Work Phone: 08-25-2019 12:37-0400 Height 158 cm Chica Haim NR-Nbdchpjaon-G eurol og-Admin RBC 585 Work Phone: 08-25-2019 12:37-0400 21 1 Chica Haim QH-Kknfuqqgdf-N eurol og-Admin RBC 585 Work Phone: Comment on above: 2-20 Stature Percentile 08-25-2019 12:37-0400 51 1 Chica Haim YY-Tekuriiukb-Q eurol og-Admin RBC 585 Work Phone: Comment on above: 2-20 Weight Percentile 08-25-2019 12:37-0400 65 1 Chica Haim AC-Yqtqlliwwa-F eurol og-Admin RBC 585 Work Phone: Comment on above: BMI Percentile Encounters Encounter Date Encounter Type Care Provider Facility Start: 02-25-2024 End: 02-25-2024 Office outpatient visit 15 minutes Navid Alondra DO Work Phone: [facility] Comment on above: size inconsist ent with dates (Primary Dx); Second trimester ; 26 weeks gestation of Start: 02-25-2024 End: 02-25-2024 ambulatory NAVID ALONDRA Not Available Start: 02-25-2024 End: 02-25-2024 Bamboo flowsheet Navid Alondra DO Work Phone: [facility] Start: 02-25-2024 End: 02-25-2024 Bamboo flowsheet Navid Alondra DO Work Phone: [facility] Start: 02-21-2024 End: 02-21-2024 Clinisync Result Encounter Linda MITCHELL Work Phone: [facility] External Department Unsolicited Start: 02-21-2024 End: 02-21-2024 Clinisync Result Encounter Linda Robert PAULA Work Phone: [facility] External Department Unsolicited Start: 02-09-2024 End: 02-09-2024 Office outpatient visit 15 minutes Rahel Molina FILLETER Work Phone: [facility] Comment on above: Acute non-recurrent pansinusitis (Primary Dx); Fever, unspecified fever cause Start: 02-09-2024 End: 02-09-2024 ambulatory RAHEL L DIDION Not Available Start: 01-22-2024 End: 01-22-2024 Office outpatient visit 15 minutes Linda Robert PAULA Work Phone: [facility] Comment on above: Second trimester pre gnancy; 21 weeks gestation of ; Diabetes mellitus screening Start: 01-22-2024 End: 01-22-2024 ambulatory LINDA HARRIET Not Available Start: 01-22-2024 End: 01-22-2024 Bamboo flowsheet Linda Robert PAULA Work Phone: [facility] Start: 01-22-2024 End: 01-22-2024 Bamboo flowsheet Linda Robert PAULA Work Phone: [facility] Start: 01-12-2024 End: 01-12-2024 Periodic preventive med est patient 18-39 yrs Ok Tyson DO Work Phone: [facility] Comment on above: Wellness examination (Primary Dx); Right leg pain; Celiac disease (CMS/HCC); Acquired right calf asymmetry Start: 01-12-2024 End: 01-12-2024 ambulatory OK TYSON Not Available Start: 01-12-2024 End: 01-12-2024 Patient encounter status Ok Tyson DO Work Phone: [facility] Start: 01-03-2024 End: 01-03-2024 ambulatory Yaritza Gonzalez Facility:[facility] [place] Start: 01-02-2024 End: 01-02-2024 Office outpatient visit 25 minutes Yaritza Gonzalez FILLETER Work Phone: [facility] Comment on above: Pain of left calf (P rimary Dx); Swelling of calf Start: 01-02-2024 End: 01-02-2024 ambulatory YARITZA GONZALEZ Not Available Start: 12-24-2023 End: 12-24-2023 Patient encounter procedure Navid Cantu DO Work Phone: [facility] Work Phone: Start: 12-24-2023 End: 12-24-2023 Periodic preventive med est patient 18-39 yrs Navid Cantu DO Work Phone: [facility] Comment on above: Well woman exam with routine gynecological exam; Second trimester ; 17 weeks gestation of ; Vaginal discharge; STD exposure; Screening, , for anatomic survey; Upper respiratory tract infection, unspecified type Start: 12-24-2023 End: 12-24-2023 ambulatory NAVID CANTU Not Available Start: 12-24-2023 End: 01-02-2024 Clinisync Result Encounter Generic External Data Provider [facility] External Department Unsolicited Start: 12-24-2023 End: 01-02-2024 Clinisync Result Encounter Generic External Data Provider [facility] External Department Unsolicited Start: 12-24-2023 End: 12-26-2023 External Result Encounter Navid Cantu [employer] Work Phone: [facility] External Department Unsolicited Start: 12-24-2023 End: 12-24-2023 Office outpatient visit 25 minutes Suzan Patrick FILLETER Work Phone: [facility] Comment on above: Acute bronchitis, un specified organism (Primary Dx); Acute cough; Exposure to pneumonia; 18 weeks gestation of Start: 12-24-2023 End: 12-24-2023 ambulatory SUZAN PATRICK Not Available Start: 11-25-2023 End: 11-25-2023 flow sheet Navid Cantu DO Work Phone: [facility] Comment [...] Department Unsolicited Start: 10-23-2023 End: 10-23-2023 ambulatory NAVID ALONDRA Not Available Start: 10-23-2023 End: 10-23-2023 Office outpatient visit 5 minutes [facility] Al[facility]ra Nurse [facility] Comment on above: GA: 8w5d Start: 08-06-2023 End: 08-06-2023 ambulatory TERENCE A VISCI Not Available Start: 07-04-2023 End: 07-04-2023 ambulatory DO Ok Charlesisabela Work Phone: [facility] Work Phone: Start: 07-04-2023 End: 07-04-2023 Patient encounter procedure DO Ok Charlesisabela Work Phone: [facility] Work Phone: Start: 06-18-2023 End: 06-18-2023 ambulatory OK TYSON Not Available Start: 06-07-2023 Non-patient / Non-visit DO Guillermo Tyson Work Phone: [facility] Work Phone: Start: 06-02-2023 End: 06-02-2023 ambulatory TERENCE A VISCI Not Available Start: 05-31-2023 End: 05-31-2023 Patient encounter procedure DO Ok Charlesisabela Work Phone: [facility] Work Phone: Start: 05-31-2023 End: 05-31-2023 ambulatory DO Ok Tyson Work Phone: [facility] Work Phone: Start: 05-23-2023 End: 05-23-2023 ambulatory TERENCE TOLENTINO Not Available Start: 05-14-2023 End: 05-14-2023 ambulatory RAHEL MOLINA Not Available Start: 09-23-2022 End: 09-23-2022 ambulatory DO Ok Tyson Work Phone: [facility] Work Phone: Start: 09-23-2022 End: 09-23-2022 Patient encounter procedure DO Ok Tyson Work Phone: [facility]- Visit Work Phone: Start: 09-18-2022 End: 09-20-2022 Evaluation and management of inpatient DO Ok Tyson Work Phone: [facility] [place] Work Phone: Start: 09-03-2022 End: 09-03-2022 Departed Referred DO Ok Tyson Work Phone: [facility] [place] Work Phone: Start: 08-10-2022 End: 08-10-2022 ambulatory DO Ok Tyson Work Phone: [facility] Work Phone: Start: 08-10-2022 End: 08-10-2022 Patient encounter procedure DO Ok Tyson Work Phone: [facility] [place] [facility] - O/P Start: 11-25-2021 End: 11-26-2021 Emergency department patient visit Rayray Aquino Facility:[facility] Start: 11-25-2021 End: 11-25-2021 Emergency department patient visit Rayray Aqu[facility] Start: 10-09-2021 End: 10-09-2021 Patient encounter procedure DO Ok Tyson Work Phone: [facility] Start: 09-23-2021 End: 09-23-2021 ambulatory Pankaj Berger Other [employer] Other Start: 09-23-2021 Telephone encounter Pankaj STONE [facility] Start: 09-18-2021 End: 09-18-2021 ambulatory Pankaj Berger Other [employer] Other Start: 09-18-2021 Telephone encounter Pankaj STONE [facility] Start: 09-13-2021 End: 09-13-2021 Patient encounter procedure DO Ok Tyson Work Phone: [facility] Start: 09-03-2021 Rx Renewal Terence Eugene er Work Phone: ZQ-Pynaeynrgb-Yitfyh 220 Work Phone: Start: 08-20-2021 End: 08-20-2021 Patient encounter procedure DO Ok Tyson Work Phone: [facility] Start: 07-03-2021 End: 07-03-2021 ambulatory Pankaj Berger Other [employer] Other Start: 07-03-2021 Telephone encounter Pankaj STONE [facility] Start: 06-11-2021 End: 06-11-2021 ambulatory Pankaj Berger Other [employer] Other Start: 06-11-2021 Telephone encounter Pankaj STONE [facility] Start: 06-02-2021 Rx Renewal Terence Hess Valorie er Work Phone: ET-Pnzrldkezw-Jtmzfhhkr-Ad min RBC 585 Work Phone: Start: 05-30-2021 ambulatory Terence Marroquin Pyle Facility: Start: 05-30-2021 Office outpatient vi sit 15 minutes Terence Jimena Pyle Work Phone: CW-Jiitgejusv-Manyldsqn-Ad min RBC 585 Work Phone: Start: 05-30-2021 Patient encounter procedure Terence Pyle Work Phone: QQ-Bfweyugyu-Irpmdumw H DO Work Phone: Start: 05-17-2021 End: 05-17-2021 Emergency department patient visit [facility] Start: 05-11-2021 Telephone encounter Terence Jimena Pyle Work Phone: YX-Wexkanzwqd-Xartwxwgsxi 220 Work Phone: Start: 04-27-2021 End: 04-27-2021 ambulatory Pankaj Berger Other [employer] Other Start: 04-27-2021 Telephone encounter Pankaj Serrano [facility] Start: 04-09-2021 AUDIT Terence Eugene er Work Phone: WB-Xikhupxfjz-Ebytqafylal 220 Work Phone: Start: 04-06-2021 End: 04-06-2021 ambulatory Albert White Other [employer] Other Start: 04-06-2021 Telephone encounter Albert Byr[facility] [address] Start: 04-05-2021 End: 04-05-2021 ambulatory Pankaj Berger Other [employer] Other Start: 04-05-2021 Telephone encounter Pankaj Serrano [facility] Start: 04-04-2021 End: 04-04-2021 ambulatory Albert White Other [employer] Other Start: 04-04-2021 Office outpatient vi sit 15 minutes Albert White [facility] [address] Start: 04-03-2021 End: 04-03-2021 ambulatory Pankaj Berger Other [employer] Other Start: 04-03-2021 Telephone encounter Pankaj STONE [facility] Start: 03-30-2021 End: 03-30-2021 ambulatory Pankaj Berger Other [employer] Other Start: 03-30-2021 Telephone encounter Pankaj STONE [facility] Start: 03-26-2021 Rx Renewal Terence Eugene er Work Phone: CT-Vggxjjzeni-Rmzspgap 1600 Work Phone: Start: 03-22-2021 ambulatory Terence Pyle Facility:[id number] Start: 03-22-2021 Office outpatient vi sit 15 minutes Terence Pyle Work Phone: PR-Nsqmdemcpm-Utotgehhw-Ad min RBC 585 Work Phone: Start: 03-22-2021 Patient encounter procedure Terence Pyle Work Phone: JU-Ctcghplfog-Spakpe 220 Work Phone: Start: 2021 End: 2021 ambulatory Pankaj Berger Other [employer] Other Start: 2021 Patient encounter procedure Pankaj Berger [facility] Start: 03-07-2021 End: 03-07-2021 ambulatory aPnkaj Berger Other [employer] Other Start: 03-07-2021 Telephone encounter Pankaj STONE [facility] Start: 02-15-2021 End: 02-15-2021 ambulatory Pankaj Berger Other [employer] Other Start: 02-15-2021 Telephone encounter Pankaj Serrano [facility] Start: 02-12-2021 End: 02-12-2021 ambulatory Brenda Janeynty Other [employer] Other Start: 02-12-2021 Office outpatient vi sit 5 minutes Brenda Armstrong [facility] Start: 12-20-2020 End: 12-20-2020 ambulatory Pankaj Berger Other [employer] Other Start: 12-20-2020 Telephone encounter Pankaj Serrano [facility] Start: 12-14-2020 (Monitoring Manager) Monitoring Manager Laura Byrnes [facility] Start: 12-14-2020 End: 12-14-2020 ambulatory Laura Day Other [employer] Other Start: 12-13-2020 End: 12-13-2020 ambulatory Chacho Domingo Other [employer] Other Start: 12-13-2020 Office outpatient vi sit 15 minutes Chacho Domingo [facility] Start: 12-11-2020 End: 12-11-2020 ambulatory Pankaj Berger Other [employer] Other Start: 12-11-2020 Telephone encounter Pankaj Serrano [facility] Start: 11-28-2020 AUDIT Terence Eugene er Work Phone: UQ-Necuyexscc-Tbkwqeyvl-Ad min RBC 585 Work Phone: Start: 11-27-2020 Telephone encounter Pankaj Serrano [facility] Start: 11-21-2020 Telephone encounter Pankaj Serrano [facility] Start: 11-19-2020 Office outpatient vi sit 15 minutes Albert White [facility] Start: 09-29-2021 Telephone encounter Pankaj Serrano [facility] Start: 11-06-2020 Patient encounter procedure Pankaj Berger [facility] Start: 09-27-2020 AUDIT Terence Nassarl er Work Phone: TS-Iyxrratqri-Tmakoxnwd Work Phone: Start: 08-30-2020 Office outpatient vi sit 15 minutes Terence Pyle Work Phone: XB-Mgcuevummv-Xtqgtsypj Work Phone: Start: 08-22-2020 AUDIT Terence Nassarl er Work Phone: YF-Nwmdqbkyuu-Xhcgbpuqw-Ad min RBC 585 Work Phone: Start: 07-19-2020 Rx Renewal Terence Eugene er Work Phone: KK-Kfannqpxdl-Emlxqsdib-Ad min RBC 585 Work Phone: Start: 03-29-2020 Patient encounter procedure Chica Haim PENSION CONSULTANT-STUDENT SUCCESS COUNSELOR, PENSION CONSULTANT-CONSUMER ATTORNEY FG-Qmeebeeqpn-Nezuxgyb 1600 Work Phone: Start: 12-29-2019 Patient encounter procedure Chica Haim PENSION CONSULTANT-STUDENT SUCCESS COUNSELOR, PENSION CONSULTANT-CONSUMER ATTORNEY OX-Invwkbkxuq-Oboikhgk 1600 Work Phone: Start: 12-24-2019 End: 12-24-2019 Patient encounter procedure Bree (Game Protector) Aleshia Work Phone: [facility] Start: 12-24-2019 Results Only Bree (Game Protector) Aleshia Work Phone: Colorectal Surgery Start: 12-10-2019 End: 12-10-2019 Orders Only Bree (Game Protector) Aleshia Work Phone: Gastroenterology Comment on above: Constipation, unspec ified constipation type (Primary Dx) Start: 11-05-2019 Patient encounter procedure Chica Whitmore AA-Nxoznvhnbw-Foewlhrzm-Ad min RBC 585 Work Phone: Start: 08-25-2019 Patient encounter procedure Chica Whitmore RO-Pbklqittsb-Hsgrswwn-Adm in RBC 585 Work Phone: Start: 04-28-2019 Patient encounter procedure Chica HOPETL-Ixbphftsuq-Kuyylymi-Adm in RBC 585 Work Phone: Start: 12-30-2018 Patient encounter procedure Chica HOPEVF-Waxzuioaew-Lxgnxhsjv Work Phone: Start: 09-30-2018 Patient encounter procedure Chica HOPEQX-Zxaabpdegf-Vivqymfog Work Phone: Start: 04-29-2018 Patient encounter procedure Chica HOPEOT-Frraxuhblp-Vobqbfthi Work Phone: Start: 01-28-2018 Patient encounter procedure Chica HOPEAS-Hwbtbbrocl-Doppimqls Work Phone: Start: 11-07-2017 Patient encounter procedure Chica HOPEOM-Glenivjlkf-Gfasswrbs Work Phone: Start: 08-01-2017 Patient encounter procedure Chica HOPEXK-Shwdiyngal-Zyrbfbnin Work Phone: Start: 05-02-2017 Patient encounter procedure Chica HOPETE-Jfxcdqaozx-Msjxxdsui Work Phone: Procedures Date Procedure Procedure Detail Performing Clinician Start: 02-25-2024 Urnls dip stick/tablet rgnt non-auto w/o micrscp Linad MITCHELL Work Phone: Start: 02-21-2024 ALL CBC WITH AUTO DIFF Generic External Data Provider Start: 02-09-2024 STATUS COVID-19/FLU Rahel Antonietta Molina FILLETER Work Phone: Start: 01-22-2024 Urnls dip stick/tablet rgnt non-auto w/o micrscp Linda MITCHELL Work Phone: Start: 01-03-2024 Comprehensive metabolic panel Yaritza Gonzalez FILLETER Work Phone: Start: 01-03-2024 HEMOGRAM CBC WITHOUT DIFF ([facility]) Yaritza Gonzalez FILLETER Work Phone: Start: 12-24-2023 RECURRENT VAGINITIS (HTRX) Navid Feldman O Work Phone: Start: 12-24-2023 Urnls dip stick/tablet rgnt non-auto w/o micrscp Navid Alondra DO Work Phone: Start: 12-24-2023 IGP,APTIMA HPV,AGE GDLN Navid Alondar DO Work Phone: Start: 11-25-2023 Urnls dip [...] Start: 11-05-2019 IO EKG Electrocardiogram- 12 Lead Vincente en Haim Colonoscopy Astrit Hajdari Esophagogastroduodenoscopy A strit Hajdari Urine culture DO [place] Work Phone: Plan of Treatment Date Care Activity Detail Author Start: 03-11-2024 End: 03-11-2024 Patient encounter procedure [facility] Start: 02-25-2024 End: 02-25-2024 Patient encounter procedure 02/25/2024 3:10 PM EST Routine [facility] [address] [place] [address] [place] [address] Navid Cantu DO [address] [place] [address] [facility] Start: 02-25-2024 End: 02-24-2025 US for US OB follow up transabdominal approach Imaging Routine size inconsistent with dates Expected: 02/25/2024, Expires: 02/24/2025 [facility] Work Phone: Comment on above: Expected: 02/25/2024 , Expires: 02/24/2025 Start: 01-22-2024 End: 01-22-2024 Patient encounter procedure [facility] Comment on above: Arrived Start: 01-22-2024 End: 01-21-2025 CBC panel - Blood by Automated count CBC Lab Routine Second trimester 21 weeks gestation of Diabetes mellitus screening Expected: 01/22/2024 (Approximate), Expires: 01/21/2025 [facility] Work Phone: Comment on above: Expected: 01/22/2024 (Approximate), Expires: 01/21/2025 Start: 01-22-2024 End: 01-21-2025 Measurement of glucose 1 hour after glucose challenge for glucose tolerance test Glucose tolerance, 1 hour Lab Routine Second trimester 21 weeks gestation of Diabetes mellitus screening Expected: 01/22/2024 (Approximate), Expires: 01/21/2025 [facility] Comment on above: Expected: 01/22/2024 (Approximate), Expires: 01/21/2025 Start: 01-12-2024 End: 01-12-2024 Patient encounter procedure 01/12/2024 3:00 PM EST Office Visit [facility] [address] [place] [id number] kO Tyson DO [address] [place] [address] [facility] Start: 12-24-2023 End: 12-24-2023 Patient encounter procedure 12/24/2023 3:40 PM EST Routine [facility] [address] [place] [address] Navid Cantu, [address] [facility] [place] [address] [facility] Start: 12-24-2023 End: 06-22-2024 Alpha fetoprotein, maternal Alpha fetoprotein, maternal Lab Routine Second trimester 17 weeks gestation of Expected: 12/24/2023 (Approximate), Expires: 06/22/2024 [facility] Comment on above: Expected: 12/24/2023 (Approximate), Expires: 06/22/2024 Start: 12-24-2023 End: 12-23-2024 US for US OB ANATOMY SINGLE W US OB CERVICAL LENGTH Imaging Routine Screening, , for anatomic survey Expected: 12/24/2023 (Approximate), Expires: 12/23/2024 [facility] Comment on above: Expected: 12/24/2023 (Approximate), Expires: 12/23/2024 Start: 11-25-2023 End: 11-25-2023 Patient encounter procedure [facility] Comment on above: Arrived Start: 10-23-2023 End: 10-22-2024 ABO/Rh ABO/Rh Lab Routine Missed menses Expected: 10/23/2023 (Approximate), Expires: 10/22/2024 [facility] Comment on above: Expected: 10/23/2023 (Approximate), Expires: 10/22/2024 Start: 10-23-2023 End: 10-22-2024 Blood type and Indirect antibody screen panel - Blood Type and screen Lab Routine Missed menses Expected: 10/23/2023 (Approximate), Expires: 10/22/2024 [facility] Work Phone: Comment on above: Expected: 10/23/2023 (Approximate), Expires: 10/22/2024 Start: 10-23-2023 End: 10-22-2024 Drugs of abuse panel - Urine by Screen method Rapid drug screen, urine Lab Routine Encounter for supervision of normal first in first trimester , unspecified gestational age Expected: 10/23/2023 (Approximate), Expires: 10/22/2024 [facility] Comment on above: Expected: 10/23/2023 (Approximate), Expires: 10/22/2024 Start: 10-23-2023 End: 10-22-2024 US Pelvis transvaginal US OB transvaginal Imaging Routine Missed menses Expected: 10/23/2023 (Approximate), Expires: 10/22/2024 [facility] Comment on above: Expected: 10/23/2023 (Approximate), Expires: 10/22/2024 Start: 10-12-2023 Influenza vaccination Influenza Vacc ine (#1) [facility] Start: 07-04-2023 [facility] Start: 09-20-2022 [facility] Start: 09-19-2022 Hospital admission [facility] Start: 09-18-2022 Hospital admission [facility] Start: 08-10-2022 [facility] Start: 08-10-2022 Hospital admission [facility] Start: 08-10-2022 Bacteria identified in Urine by Culture Urine Culture [facility] Start: 10-09-2021 End: 10-09-2021 Patient encounter procedure [facility] Start: 05-30-2021 FUV, Provider: Chica Whitmore, Status: Pen, Time: 12:30 PM FUV, Provider: Chica Whitmore, Status: Pen, Time: 12:30 PM SH-Kfuxyfozgg-Pgjykg 220 Work Phone: Start: 02-28-2021 FUV, Provider: Chica Whitmore, Status: Pen, Time: 12:30 PM FUV, Provider: Chica Whitmore, Status: Pen, Time: 12:30 PM RZ-Wgbnotioea-Mnfjjd ogy-Admin RBC 585 Work Phone: Start: 08-30-2020 FUV, Provider: Chica Whitmore, Status: Pen, Time: 12:30 PM FUV, Provider: Chica Whitmore, Status: Pen, Time: 12:30 PM DV-Kpwkcmrnxn-Alyvom ogy-Admin RBC 585 Work Phone: Start: 10-12-2019 Influenza vaccination INFLUENZA (#1) [facility] Start: 2019 CHLAMYDIA SCREENING (18-24) CHLAMYDIA SCREENING (18-24) [facility] Start: 2019 GC (GONORRHEA) SCREENING (18-24) GC (GONORRHEA) SCREENING (18-24) [facility] Start: 2019 HEPATITIS C SCREENING HEPATITIS C SC REENING [facility] Start: 2019 HIV SCREENING HIV SCREENING [facility] Start: 2017 MENINGOCOCCAL CONJUG ATE (1 - 2-dose series) MENINGOCOCCAL CONJUGATE (1 - 2-dose series) [facility] Start: 2013 PHQ-A PHQ-A [facility] Start: 2012 HPV VACCINE (1 - 2-d ose series) HPV VACCINE (1 - 2-dose series) [facility] Start: 2008 Urine microalbumin profile DTAP,TDAP,TD (1 - Tdap) [facility] End: 12-09-2020 Anorectal manometry MANOMETRY ANORECTAL Endoscopy Routine Constipation, unspecified constipation type 1 Occurrences starting 12/23/2019 until 12/09/2020 [facility] Comment on above: 1 Occurrences starti ng 12/23/2019 until 12/09/2020 Bacteria identified in Urine by Culture Urine culture Microbiology Routine Missed menses Ordered: 10/23/2023 [facility] Comment on above: Ordered: 10/23/2023 CBC W Auto Different ial panel - Blood CBC and differential Lab Routine Missed menses Ordered: 10/23/2023 [facility] Comment on above: Ordered: 10/23/2023 CHLAMYDIA TRACHOMATI S (GENITO/STI) CHLAMYDIA TRACHOMATIS (GENITO/STI) Lab Routine STD exposure Ordered: 12/24/2023 [facility] Comment on above: Ordered: 12/24/2023 Cytology Cervical or vaginal smear or scraping study Pap Smear Pathology and Cytology Routine Well woman exam with routine gynecological exam Ordered: 12/24/2023 [facility] Comment on above: Ordered: 12/24/2023 Hemoglobin A1c/Hemoglobin.total in Blood Hemoglobin A1c Lab Routine Missed menses Ordered: 10/23/2023 [facility] Comment on above: Ordered: 10/23/2023 Hepatitis B virus surface Ag [Presence] in Serum or Plasma by Immunoassay Hepatitis B surface antigen Lab Routine Missed menses Ordered: 10/23/2023 [facility] Comment on above: Ordered: 10/23/2023 Hepatitis C virus Ab [Presence] in Serum or Plasma by Immunoassay Hepatitis C antibody Lab Routine Missed menses Ordered: 10/23/2023 [facility] Comment on above: Ordered: 10/23/2023 HIV-1/HIV-2 antigen/antibody combination immunoassay HIV-1 and HIV-2 antibodies Lab Routine Missed menses Ordered: 10/23/2023 [facility] Comment on above: Ordered: 10/23/2023 Neisseria gonorrhoea e DNA [Presence] in Unspecified specimen by PAMELA with probe detection Neisseria gonorrhea DNA probe, direct Lab Routine STD exposure Ordered: 12/24/2023 [facility] Comment on above: Ordered: 12/24/2023 Patient [facility] Work Phone: Patient referral [facility] Work Phone: PT ED PATIENT INFORMATION PT ED PATIENT INFORMATION Other 12/24/2019 [facility] Reagin Ab [Presence] in Serum by RPR RPR Lab Routine Missed menses Ordered: 10/23/2023 [facility] Comment on above: Ordered: 10/23/2023 Rubella antibody, IgG Rubella an tibody, IgG Lab Routine Missed menses Ordered: 10/23/2023 [facility] Comment on above: Ordered: 10/23/2023 SURESWAB(R) ADVANCED VAGINITIS PLUS, TMA SURESWAB(R) ADVANCED VAGINITIS PLUS, TMA Pathology and Cytology Routine Vaginal discharge Ordered: 12/24/2023 [facility] Work Phone: Comment on above: Ordered: 12/24/2023 [facility] Immunizations Immunization Date Immunization Notes Care Provider Fa cili 11-11-2022 influenza, injectabl e, quadrivalent, preservative free Nom Nurse [facility] 11-11-2022 influenza virus vacc ine, unspecified formulation [facility] Nurse [facility] 05-07-2021 pneumococcal polysaccharide vaccine, 23 valent Nom Nurse [facility] 10-25-2020 influenza, injectabl e, quadrivalent, preservative free Terence Pyle Work Phone: OA-Cukmbvtoyk-Vajzu a 220 Work Phone: 06-09-2020 COVID-19 mRNA-1273 (Moderna) DO Ok Tyson Work Phone: [facility] 06-06-2020 Moderna COVID-19 Vac cine 100 MCG/0.5ML Intramuscular Suspension Terence Pyle Work Phone: [facility] 05-09-2020 [facility] COVID-19 Vac cine 100 MCG/0.5ML Intramuscular Suspension Terence Pyle Work Phone: DT-Itwrdkjlai-Iotvm ands Work Phone: 10-27-2019 meningococcal B vacc ine, recombinant, OMV, adjuvanted Terence Pyle Work Phone: ZC-Ooixdswfbq-Pccqx ands Work Phone: 10-07-2019 influenza, injectabl e, quadrivalent, preservative free [facility]oms Nurse [facility] 03-04-2018 influenza, injectabl e, quadrivalent, preservative free Terence Pyle Work Phone: OC-Yvworjbxgu-Xhcau ands Work Phone: 03-04-2018 meningococcal B vacc ine, recombinant, OMV, adjuvanted Terence Pyle Work Phone: XO-Bermnbrutq-Jcgfk ands Work Phone: 03-04-2018 meningococcal oligosaccharide (groups A, C, Y and W-135) diphtheria toxoid conjugate vaccine (MCV4O) Terence Pyle Work Phone: JE-Danscoqwno-Wsoxy ands Work Phone: 10-24-2016 Human Papillomavirus 9-valent vaccine Terence Pyle Work Phone: TY-Gbcvxgdnah-Vqdhh ands Work Phone: 10-02-2016 diphtheria, tetanus toxoids and acellular pertussis vaccine Noms Nurse [facility] 09-28-2015 Human Papillomavirus 9-valent vaccine Terence Pyle Work Phone: ZV-Hzeflhjkxl-Ybmkk ands Work Phone: 09-28-2015 meningococcal oligosaccharide (groups A, C, Y and W-135) diphtheria toxoid conjugate vaccine (MCV4O) Terence Pyle Work Phone: QB-Lmozcyrrpd-Qobvx ands Work Phone: 08-26-2013 hepatitis A vaccine, pediatric/adolescent dosage, 2 dose schedule Terence Pyle Work Phone: FZ-Mveobchyct-Jlggv ands Work Phone: 08-26-2013 tetanus toxoid, redu deisy diphtheria toxoid, and acellular pertussis vaccine, adsorbed Terence Pyle Work Phone: NP-Dkbddbyqng-Zvwyw ands Work Phone: 01-26-2009 novel Influenza-H1N1 -09, live virus for nasal administration Terence Pyle Work Phone: KV-Uxqvbsskfo-Fikaf ands Work Phone: 12-28-2008 novel influenza-H1N1 -09, preservative-free, injectable Terence Pyle Work Phone: YQ-Ietekdssya-Otfbo ands Work Phone: 10-02-2006 diphtheria, tetanus toxoids and acellular pertussis vaccine, unspecified formulation Terence Pyle Work Phone: KA-Jgubmtkold-Fewid ands Work Phone: 10-02-2006 hepatitis A vaccine, unspecified formulation Terence Pyle Work Phone: XB-Ggappgvfas-Zlwoy ands Work Phone: 10-02-2006 measles, mumps and rubella virus vaccine Terence Pyle Work Phone: FI-Tknjrhzxmk-Gesor ands Work Phone: 10-02-2006 poliovirus vaccine, inactivated Terence Pyle Work Phone: WL-Jlvmbbziku-Qxeff ands Work Phone: 10-02-2006 varicella virus vaccine Marito Pyle Work Phone: ZD-Prtlrjxmde-Lwaez ands Work Phone: 06-01-2002 diphtheria, tetanus toxoids and acellular pertussis vaccine, unspecified formulation Terence Pyle Work Phone: VC-Wfdnlvicdt-Evweo ands Work Phone: 06-01-2002 haemophilus influenz ae type b vaccine, conjugate unspecified formulation Terence Hess Pyle Work Phone: TZ-Jrzyrnyrfz-Twxkz ands Work Phone: 06-01-2002 measles, mumps and rubella virus vaccine Terence Hess Pyle Work Phone: FD-Wlecgmgoyl-Wmkex ands Work Phone: 06-01-2002 varicella virus vaccine Marito Pyle Work Phone: HV-Llkklyvuzz-Zkrdj ands Work Phone: 2001 diphtheria, tetanus toxoids and acellular pertussis vaccine, unspecified formulation Terence Hess Pyle Work Phone: CT-Kidkbxwqgl-Ykhvw ands Work Phone: 2001 haemophilus influenz ae type b conjugate and Hepatitis B vaccine Terence Jimena Pyle Work Phone: GZ-Werchhweka-Twowd ands Work Phone: 2001 pneumococcal conjuga te vaccine, 7 valent Terence Nassarler Work Phone: FY-Lfzzcrdprz-Faijn ands Work Phone: 2001 poliovirus vaccine, inactivated Terence Pyle Work Phone: GZ-Lxkgcklqsi-Sgguq ands Work Phone: 2001 diphtheria, tetanus toxoids and acellular pertussis vaccine, unspecified formulation Terence Pyle Work Phone: WZ-Vaclocmdew-Bmdty ands Work Phone: 2001 haemophilus influenz ae type b vaccine, conjugate unspecified formulation Terence Pyle Work Phone: XC-Fmcoqrkxdc-Szukn ands Work Phone: 2001 pneumococcal conjuga te vaccine, 7 valent Terence Pyle Work Phone: FU-Hvlkhtxulf-Ohkhq ands Work Phone: 2001 poliovirus vaccine, inactivated Terence Pyle Work Phone: DD-Vqkocgsqro-Couyc ands Work Phone: 2001 diphtheria, tetanus toxoids and acellular pertussis vaccine, unspecified formulation Terence Pyle Work Phone: UW-Rmfrhbdpnv-Sjxgs ands Work Phone: 2001 haemophilus influenz ae type b conjugate and Hepatitis B vaccine Terence Pyle Work Phone: ZY-Ifrvhsdjrf-Fzpkk ands Work Phone: 2001 poliovirus vaccine, inactivated Terence Pyle Work Phone: HL-Kmnlcmtusj-Sjlqr ands Work Phone: 2001 hepatitis B vaccine, pediatric or pediatric/adolescent dosage Terence Pyle Work Phone: CG-Mjqxgmqcri-Lpryh ands Work Phone: Payers Date Payer Category Payer Self-pay [id number] 2022 Private Health Insurance [employer] [id number] 2022 Unknown [id number] 2022 Medicaid [id number] 2022 Medicaid [id number] 2021 Unknown 2021 Unknown [id number] 2019 Unknown MMO MMO SUPERMED PLUS [id number] 2019-Present PPO [id number] 2001 Unknown [id number] 2.16.840.1.247978.3.579.2. 356 2001 Unknown [id number] 2.16.840.1.175970.3.579.2. 727 2001 Unknown [id number] 2.16.840.1.859184.3.579.2. 1259 2001 Unknown [id number] 2.16.840.1.427988.3.579.2. 1259 2001 Unknown [id number] 2.16.840.1.256625.3.579.2. 1259 2001 Unknown [id number] 2.16.840.1.548382.3.579.2. 1259 2001 Unknown [id number] 2.16.840.1.075797.3.579.2. 1259 2001 Unknown [id number] 2.16.840.1.076162.3.579.2. 1259 2001 Unknown [id number] 2.16.840.1.827247.3.579.2. 1259 2001 Unknown [id number] 2.16.840.1.128775.3.579.2. 1259 2001 Unknown [id number] 2.16.840.1.805344.3.579.2. 1259 2001 Unknown [id number] 2.16.840.1.088457.3.579.2. 9 2001 Unknown [id number] 2.16.840.1.671977.3.579.2. 1259 2001 Unknown [id number] 2.16.840.1.978866.3.579.2. 9 2001 Unknown [id number] 2.16.840.1.793796.3.579.2. 9 2001 Unknown [id number] 2.16.840.1.506229.3.579.2. 9 2001 Unknown [id number] 2.16.840.1.628829.3.579.2. 9 2001 Unknown [id number] 2.16.840.1.425150.3.579.2. 9 1974 Unknown [id number] 2.16.840.1.633251.3.579.2. 356 Unknown [id number] Unknown HCAP/HFA/FAP Active [id number] Unknown [id number] 2.16.840.1.693060.3.579.2. 531 Unknown [id number] 2.16.840.1.256194.3.579.2. 531 Unknown [id number] 2.16.840.1.540819.3.579.2. 531 Social History Date Type Detail Facility Assertion Unknown if ever smoked [facility] Tomorrow Work Phone: Start: 2001 [facility]igned At [facility] Exposure to SARS-CoV -2 (event) Unable to assess [facility] Start: 10-31-2022 End: 01-12-2024 Lives with parents () Lives with parents () SL-Gqiszbiuno-Txxduvolz- Admin RBC 585 Work Phone: Start: 01-14-2021 End: 07-16-2022 Tobacco smoking status Never smoked tobacco (finding) [facility] Start: 10-31-2022 End: 01-12-2024 Sex Assigned At Female [facility] [place] Other Start: 2001 Sex Assigned At Female F [facility] Tobacco Vaping [facility] Tobacco smoking status No Smokin g Status Entered [facility] Start: 07-16-2022 Tobacco use and exposure [...] of lumen evaluation Video capsule endoscopy system ()[id number] FDA Start: 04-25-2021 Goals Date Patient Goal Desired Activity /State Personal health goal Functional Status Date Assessment Result Facility 09-20-2022 Functional status Patient at Baseline [facility] Work Phone: 11-25-2021 Functional Status N/A [facility] NEGATED: Highlighted row Functional performance Functional status health issues are not documented Disease KM-Qxlyxpadid-Dsguno nds Work Phone: Mental Status Date Assessment Result Facility 09-20-2022 Cognitive function Cognitive Sta tus Patient at Baseline [facility] Work Phone: NEGATED: Highlighted row Cognitive function [Interpretation] Cognitive status health issues are not documented Disease HL-Zetupkzogu-Jreyzr nds Work Phone: Clinical Notes 08-10-2020 to 02-25-2024 Linda Robert, PAULA - 02/25/2024 3:10 PM Carline Molina, KAMILA - 02/09/2024 4:00 PM PAULA Mark - 01/22/2024 3:50 PM Elvia Tyson, DO - 01/12/2024 3:00 PM EST Note Date & Type Note Facility 02-25-2024 History of Presen t illness Narrative Reason [...] thyroid Diabetes Mother Shine Evangelista Hypertension Mother [place] Evangelista Hyperlipidemia Mother [employer] Mental illness [...] reviewed. Vitals: Estimated body mass index is 27.09 kg/m as calculated from the following: Height as of 01/12/24: 5' 2 . Weight as of this encounter: 148 lb 1.9 oz. BP: 114/66 Patient's last menstrual period was 08/23/2023. ASSESSMENT & PLAN ICD-10-CM 1. Second trimester Z34.92 2. 26 weeks gestation of Z3A.26 POCT urinalysis dipstick manually resulted Return OB: Patient presents today for a routine obstetrics appointment. Patient is currently 26w4d . Patient states she is doing well but has complaints of being tired due to current . Patient has verbalizes frequent movement. labor precautions was discussed/given. Pt having episodes of low Blood sugar advised to increase protein. Orders Placed This Encounter Procedures US OB follow up transabdominal approach POCT urinalysis dipstick manually resulted Follow Up: Patient is to return to office in 2 week for routine OB appointment. 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 She has been self-medicating with Tylenol and Robitussin. She reports feeling pressure in her ears but no soreness. She is currently 24 weeks and has missed work today due to her illness. She plans to return to work tomorrow. SOCIAL HISTORY She works at the [employer]. ALLERGIES The patient is allergic to [...] Patient Active Problem List Diagnosis Celiac disease (CMS/HCC) Constipation due to outlet dysfunction Current smoker Menorrhagia with irregular cycle Migraine without aura (CMS/HCC) Mixed anxiety depressive disorder Pelvic floor dysfunction [...] days. The prescription will be sent to [facility]. A work note has been provided for [...] 03/04/2018 Moderna SARS-CoV-2 Vaccination 05/09/2020, 06/06/2020 Novel Ucbpisidb-D9Z8-53, nasal 01/26/2009 Novel otfmdymun-D0W0-18, preservative-free 12/28/2008 Pneumococcal Conjugate PCV 7 2001, [...] Rahel Molina NP documented in this encounter [facility] 01-22-2024 History of Presen t illness Narrative [...] Mother Shine Evangelista hyperactive thyroid Diabetes Mother Mandolin Evangelista Hypertension Mother Shine Evangelista Hyperlipidemia Mother [...] of: PAULA Lopez documented in this encounter [facility] 01-12-2024 History of Presen t illness Narrative [...] alleviated by propranolol. She has consulted a barrel bung remover and dumper and undergone a heart monitor test, which [...] were normal. She has a 14 to 58-sbymw-yaf son and is currently . FAMILY HISTORY [...] of [place]. documented in this encounter [facility] 01-02-2024 History of Presen t illness Narrative [...] lab work and it was ordered to [facility]. Tylenol for pain as she is and cannot take anything else. Perform calf stretches and follow up with [employer] HEL[employer] if no improvement. She expressed an understanding. - Vascular US lower extremity venous duplex left; Future - HEMOGRAM CBC WITHOUT DIFF ([facility]); Future - Comprehensive metabolic panel; Future 2. Swelling of calf See above. - Vascular US lower extremity venous duplex left; Future - HEMOGRAM CBC WITHOUT DIFF ([facility]); Future - Comprehensive metabolic panel; Future FINDINGS: [...] left lower extremity. documented in this encounter [facility] 12-24-2023 History of Presen t illness Narrative [...] Evangelista Hypertension Mother Shine Evangelista Hyperlipidemia Mother Mandolin Evangelista Mental illness Mother Shine Evangelista No [...] nursing note reviewed. Exam conducted with a double backer present. Vitals: Estimated body mass index is [...] unless needed otherwise. documented in this encounter [facility] 12-24-2023 History of Presen t illness Narrative [...] See 1 . documented in this encounter [facility] 11-25-2023 History of Presen t illness Narrative [...] Name Age of Onset Other (anxiety) Mother Mandolin Evangelista Hyperthyroidism Mother Mandolin Evangelista hyperactive thyroid Diabetes Mother Mandolin Evangelista Hypertension Mother Mandolin Evangelista Hyperlipidemia Mother Mandolin Evangelista Mental illness Mother Mandolin Evangelista No Known Problems Sister Hypertension Brother [...] nursing note reviewed. Exam conducted with a double backer present. Vitals: Estimated body mass index is [...] or undercooked meat, and stay away from formerly [facility]. Patient has been consulted regarding any further do's and don'ts of . Patient voiced understanding and all questions and concerns were answered. Orders Placed This Encounter Procedures POCT urinalysis dipstick manually resulted Follow Up: Patient is to return in 4 weeks for routine OB appointment. Documented by Helene Thorne LPN on behalf of: Navid Cantu DO documented in this encounter [facility] 10-23-2023 History of Presen t illness Narrative [...] Ambulatory Problems Diagnosis Date Noted Celiac disease ([facility]/HCC) 11/01/2022 Constipation due to outlet dysfunction 02/21/2020 Current smoker 11/01/2022 Menorrhagia with irregular cycle 11/01/2022 Migraine without aura (CMS/HCC) 11/01/2022 Mixed anxiety depressive disorder 02/21/2020 Other fatigue 02/21/2020 Pelvic floor dysfunction 11/01/2022 Sinus tachycardia 06/18/2023 Palpitations 06/18/2023 Resolved Ambulatory Problems Diagnosis Date Noted No Resolved Ambulatory Problems Past Medical History: Diagnosis Date Anxiety Constipation, unspecified constipation type Depression (CMS/[facility]) Family History Problem Relation Name Age of Onset Other (anxiety) Mother Mandaditi Evangelista Hyperthyroidism Mother Mandolin Evangelista hyperactive thyroid Diabetes Mother Mandolin Evangelista Hypertension Mother Mandolin Evangelista Hyperlipidemia Mother Mandolin Evangelista Mental illness Mother Shine Evangelista No [...] aura and without status migrainosus, not intractable (CMS/[facility]) Nurse Note: OB Intake: Patient presents today for first OB visit. Patients history has been reviewed in great detail including any potential risks. Patient signed consent forms and patient desires testing in both trimesters. Patient currently has no complaints and has been advised to drink 6-8 glasses of water a day, eat no raw or undercooked meat, and stay away from formerly [facility]. 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 Progress Note Signed Patient: Shiv Evangelista MR#: [id number] : 2000 Acct:[id number] Age/Sex: 22 / F Adm Date: 3 Loc: 3S Room: [address] [place] [address] Type: ADM IN Attending Dr: Yuval Pete [...] well controlled, tolerating diet and flatus present Meredith baby status: doing well Meredith feeding status: exclusively breast feeding OB - [...] % (Auto) 81.0, Lymph % (Auto) 8.5, [place] % (Auto) 10.2, Eos % (Auto) 0.1, Baso % (Auto) 0.2, Nucleat RBC Rel Count 0.0, Neut # (Auto) 11.5 H, Lymph # (Auto) 1.2, [place] # (Auto) 1.5 H, Eos # (Auto) [...] By: <Electronically signed by GAL Abraham> 09/20/22 1043 [facility] Work Phone: 1(357) 226-664208-10-2023 Progress note Author QUIN AVENDAÑO [facility] September 19, 2022 11:03am Note Date/Time September 19, 2022 11 :03am [facility] [address] [place] [address] [employer]ANDY MAKER HELPER Progress Note Signed Patient: Shiv Evangelista MR#: [id number] : 2000 Acct:[id number] Age/Sex: 22 / F Adm Date: 3 Loc: 3S Room: [address] [place] [address] Type: ADM IN Attending Dr: Yuval Pete [...] headache, or vision changes); no flatus present Meredith baby status: doing well feeding status: pumping [...] % (Auto) 77.8, Lymph % (Auto) 11.8, [place] % (Auto) 9.3, Eos % (Auto) 0.5, Baso % (Auto) 0.6, Nucleat RBC Rel Count 0.1, Neut# (Auto) 8.0 H, Lymph # (Auto) 1.2, [place] # (Auto) 1.0 H, Eos # (Auto) 0.1, Baso # (Auto) 0.1 09/18/22 08:20: Urine Opiates Screen Negative, Ur Barbiturates Screen Negative, Ur Phencyclidine Scrn Negative, Ur Amphetamines Screen Negative, U Benzodiazepines Scrn Negative, Urine Cocaine Screen Negative 09/18/22 08:20: Urine Color Yellow, Urine Appearance Cloudy A, Urine pH 7.0, Ur Specific Commodore 1.004, Urine Protein Negative, Urine Glucose (UA) [...] signed by QUIN AVENDAÑO DO> 09/19/22 1103 [facility] Work Phone: 1(800) 701-775208-09-2023 History and physical note Author YUVAL PETE [facility] September 18, 2022 9:22pm Note Date/Time September 18, 2022 9:2 2pm [facility] [address] [place] [address] CANDY MAKER HELPER History & Physical Signed Patient: Shiv Evangelista MR#: [id number] : 2000 Acct:[id number] Age/Sex: 22 / F Adm Date: 3 Loc: Room: 6L1783-6 Type: ADM IN Attending Dr: Yuval Pete MD Copies to: MD Ok BOYD DO~ Date of Service: 09/18/2022 HPI History of Present Illness Chief complaint: I'm cramping HPI: Pt is a healthy primigravida at term. She presents to L+D complaining of contractions. 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 Hx : 1 Para: 0 : 0 [...] (Verified 09/18/22 08:27) Abdominal Pain Home Medications aqsmrpzc-tdy-Uk-FA 1 mg tablet tab PO 09/18/22 [History] Active Medications Carboprost Tromethamine (Carboprost Tromethamine 250 Mcg/Ml Vial) 250 mcg IM PRN PRN PRN Reason: Bleeding Stop: 09/19/22 14:14 Lactated Ringer's (Lactated Ringers) 1,000 mls @ 150 mls/hr IV .Q6H40M [facility] Stop: 09/18/23 14:14 Last Admin: 09/18/22 16:10 Dose: 150 mls/hr Oxytocin (Pitocin/Lr) 30 unit in 500 mls @ 2 mls/hr IV .Q24H LASHA; Protocol Stop: 09/18/23 14:14 Last Titration: 09/18/22 [...] % (Auto) 77.8, Lymph % (Auto) 11.8, [place] % (Auto) 9.3, Eos % (Auto) 0.5, Baso % (Auto) 0.6, Nucleat RBC Rel Count 0.1, Neut # (Auto) 8.0 H, Lymph # (Auto) 1.2, [place] # (Auto) 1.0 H, Eos # (Auto) 0.1, Baso # (Auto) 0.1 09/18/22 08:20: Urine Opiates Screen Negative, Ur Barbiturates Screen Negative, Ur Phencyclidine Scrn Negative, Ur Amphetamines Screen Negative, U Benzodiazepines Scrn Negative, Urine Cocaine Screen Negative 09/18/22 08:20: Urine Color Yellow, Urine Appearance Cloudy A, Urine pH 7.0, Ur Specific Commodore 1.004, Urine Protein Negative, Urine Glucose (UA) [...] <Electronically signed by MD YUVAL PETE> 09/18/222121 [facility] Work Phone: 1(141) 502-627108-09-2023 Procedure [facility]10-17-2022 Hospital Discharge instructions Patient Education 11/25/2021 [...] Follow these instructions at home: Medicines Take ljdx-wjg-vlyqztb and prescription medicines only as told by your health care provider. Ask your health care provider if the medicine prescribed to you: ?Requires you to avoid driving or using heavy machinery. ?Can cause constipation. You may need to take these actions to prevent or treat constipation: ?Drink enough fluid to keep your urine pale yellow. ?Take mwkb-zcq-twzirys or prescription medicines. ?Eat foods that are [...] 01/27/2006 Document Revised: 05/21/2019 Document Reviewed: 03/11/2019 [employer] Patient Education 2019 [employer] Follow Up Care 11/25/2021 18:58:56 With:OK MARBELLA Address: [address] [place] [address], [place] [address] [place] [phone] Business (1) When:Within 3 Day(s) [facility]10-16-2022 Evaluation + Plan noteExtracted from: Title:ED [...] 22:06:00 EDT, mL/hr, Infuse over 61, minute(s) [facility]08-29-2022 NoteHNO ID: [id number] Author: Lynn Potts, PT Service: ? Author Type: Physical Therapist Type: Progress Notes Filed: 10/08/2021 12:15 PM Note Text: 10/08/2021 [facility] PHYSICAL THERAPY DISCONTINUANCE [...] therapy or scheduled additional follow-up appointments. Lynn Potts, [facility]05-24-2022 Evaluation note* Encounter Date Diagnosis Assessment Notes Treatment Notes Treatment Clinical Notes June, Small intestinal bacterial overgrowth (SIBO) (ICD-10 - K63.89) [facility] Other 05-02-2022 Evaluation note* Encounter Date Diagnosis Assessment Notes Treatment Notes Treatment Clinical Notes June, Small intestinal bacterial overgrowth (SIBO) (ICD-10 - K63.89) [facility] Other 04-08-2022 Hospital Discharge instructions Patient Education [...] hospital. Follow these instructions at home: Take uvza-wzp-jvxfwxu and prescription medicines only as told by [...] cantaloupe, kiwi, oranges, tomatoes, asparagus, and potatoes. ?Bradley juice. ?Tomato juice. ?Red meats. ?Yogurt. Keep [...] 01/27/2006 Document Revised: 09/09/2018 Document Reviewed: 09/09/2018 [employer] Patient Education 2020 [employer]. 05/17/2021 22:58:45 Abnormal Uterine Bleeding, Ylyq-ow-Awes Abnormal Uterine Bleeding Abnormal uterine bleeding means [...] 11/24/2009 Document Revised: 01/21/2017 Document Reviewed: 01/21/2017 [employer] Patient Education 2020 [employer]. Follow Up Care 05/17/2021 20:46:59 With:Sirisha MURPHY, ALICIA Bills Address: [address] [place], [place] [address]MARISOLSC ARASH, [facility] [address] [place] [address]- When:2 to 4 days With:TERENCE PYLE MD Address: [address] [place] [address]- When:05/20/2021 [facility]04-07-2022 Evaluation + Plan noteExtracted from: Title:ED Note Author:Mariana Steinberg PA-C Date :05/17/21 1. Dysfunctional uterine ble eding (N93.8: Other specified abnormal uterine and vaginal bleeding) Ordered: meclofenamate, 100 mg = 1 cap(s), Oral, TID, X 5 day(s), # 15 cap(s), Refills(s) 0, Pharmacy: [facility] [id number] [facility], 157.5, cm, 05/17/21 20:52:00 EDT, Height/Length Dosing, 47.8, kg, 05/17/21 20:52:00 EDT, Weight Dosing 2. Hypokalemia (E87.6: Hypokalemia) Ordered: meclofenamate, 100 mg = 1 cap(s), Oral, TID, X 5 day(s), # 15 cap(s), Refills(s) 0, Pharmacy: [facility] [id number] [facility], 157.5, cm, 05/17/21 20:52:00 EDT, [...] Diagnostic Tests Pending * Urine Culture 05/17/21 [facility]03-18-2022 Evaluation note* Encounter Date Diagnosis Assessment Notes Treatment Notes Treatment Clinical Notes Apr, Abdominal pain (ICD-10 - R10.9) [facility] Other 02-23-2022 Evaluation note* Encounter Date Diagnosis [...] to pass out, go to the ER. [facility] Other 02-10-2022 Chief complaint Narrative - Reported* [...] Follow up migraines * Accompanied by alone. OD-Cbeunwyzhu-Dvdiyr 220 Work Phone: [phone]) 587-777402-10-2022 Chief complaint Narrative - Reported* An interactive [...] Follow up migraines * Accompanied by alone. 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 She will be at [employer]. * She has also been diagnosed [...] and she just started on 5 mgTID. 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 She will be at [employer] main [employer]. * She has also been diagnosed IGA [...] and she just started on 5 mgTID. 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 Jones Feb, Constipation (ICD-10 - K59.00) Increase Linzess to 145mcg daily [facility] Other 01-06-2022 Evaluation note* Encounter Date Diagnosis Assessment Notes Treatment Notes Treatment Clinical Notes Feb, Small intestinal bacterial overgrowth (SIBO) (ICD-10 - K63.89) [facility] Other 01-03-2022 Evaluation note* Encounter Date Diagnosis [...] Patient care instructions given in writting by [facility] At Home document [facility] Other 11-04-2021 Evaluation note* Encounter Date Diagnosis Assessment Notes Treatment Notes Treatment Clinical Notes Dec, Celiac disease/sprue (ICD-10 - K90.0) Dec, Constipation (ICD-10 - K59.00) Dec, Other Summary of Visit: (A) Low Fructose Nutriiton Therapy (B) Reviewed Gluten Free Nutrition Therapy (C) Log food and symptoms [facility] Other 11-03-2021 Evaluation note* Encounter Date Diagnosis [...] Patient care instructions given in writting by [employer] [facility] document. [facility] Other 10-10-2021 Evaluation note* Encounter Date Diagnosis [...] Patient care instructions given in writting by [employer] [facility] document. [facility] Other 10-04-2021 NoteHNO ID: [id number] Author: Lynn Edgehouse, PT Service: ? Author Type: Physical Therapist [...] and untimed codes) : 45 Lynn Potts [facility]09-30-2021 NoteHNO ID: [id number] Author: Alexandra Suarez, PT Service: ? Author [...] Planned: 8 Planned Treatment Interventions: Therapeutic exercise (60257);Neuromuscular re-education (22071);Manual therapy (45613);Therapeutic activities (85558);Self-shelter management (17371);Patient/Family/Caregiver Education;Biofeedback Pelvic ([id number],51450) PLAN FOR NEXT VISIT: toileting positions, colon [...] movement [facility] [employer] (more content not included)...[facility] 11-06-2020 Evaluation note* Encounter Date Diagnosis Assessment Notes Treatment Notes Treatment Clinical Notes Oct, Celiac disease/sprue (ICD-10 - K90.0) Celiac disease material was printed BEEN FOLLOWING GLUTEN FREE DIET. BREATH TESTING IS ORDERED AND SCHEDULED IN [place] Oct, Constipation (ICD-10 - K59.00) IS STILL TAKING THE MIRALAX AND LINZESS. PATIENT ENCOURAGED HOW TO USE MIRALAX MUCH SHE DOES NEED TO. ENCOURAGED TO GET UP AND MOVE SO BOWELS MOVE ALSO. STOP AMITRIPTYLINE AND START THE LEVSIN Oct, Nausea (ICD-10 - R11.0) [facility] Other 07-01-2021 History of Present illness Narrative* Shiv is a 20 year old young woman with POTS, anxiety and headaches. She is taking 2 summer courses. [facility] [employer] and is taking her courses through [facility]. * She stopped all her meds [...] as well. * She still works at [employer]. * She denies any thoughts about hurting herself unless she is having a panic attack. * She has been having more issues with dizziness. RC-Cmldtryaew-Gfjstjmxm Work Phone: Evaluation noteNo InformationNort [employer] Other Evaluation noteNo assessment information available [facility] Work Phone: Evaluation note* Diagnosis Onset Date Resolution Status 38 weeks gestation of acute Status post vaginal delivery acute [facility] Work Phone: Evaluation note* Diagnosis Onset Date Resolution Status Anxiety acute Celiac disease acute POTS (postural orthostatic tachycardia syndrome) acute [facility] Work Phone: Evaluation note* Diagnosis Second trimester [...] fever cause [facility] Diagnosis size inconsistent with dates- Primary Second trimester state, incidental 26 weeks gestation of documented in this encounter [facility] Narrative - Reported* Type Description Date Medical History anxiety Medical History celiac Medical History migraine headache Medical History [facility] [place] [facility] [employer] Other Hisrcuy general Narrative - Reported* Type Description Date Medical History anxiety Medical History celiac disease Medical History migraine headache Medical History [facility] [employer] Other Hisvdhn general Narrative - [facility] [employer] Other History of Present illness Narrative* This [...] has been having more issues with dizziness. SY-Rmxvfzsmja-Wknsgj 220 Work Phone: History of Present illness [...] has been having more issues with dizziness. WD-Rqofuhimde-Uydovmbws-Admin RBC 585 Work Phone: Hospital course Narrative No data available for this section [facility] Additional Instructions Try to rest today and stay off your feet. Take tylenol as needed.[facility] Work Phone: Instructions* Name Dates Details Instructions not documented GC-Xkopiqdjyg-Zrwikpvr 1600 Work Phone: Instructions* Name Dates Details Instructions not documented UA-Wajdhlwlup-Kulvypdd-Admin RBC 585 Work Phone: progress note No data available for this section [facility] Family History No Family History Records [...] [facility] Referred Provider Mike Jones Referred Address ,[place], [place],[address] Referred Provider Specialty Immunology Referral Priority Routine [...] R00.[address] requested by Rachel Fatima FILLETER Chief Complaint R00.[address] requested by Rachel Fatima FILLETER Reason for Visit Anxiety Celiac disease POTS (postural orthostatic tachycardia syndrome) Additional Source Comments Source Comments (unrecognize d section and content) In the event this informatio n is protected by the Federal Confidentiality of Alcohol and Drug Abuse Patient Records regulations: The Federal rules restrict any use of the information to criminally investigate or prosecute any alcohol or drug abuse patient.[facility] the event this information is protected by the Federal Confidentiality of Alcohol and Drug Abuse Patient Records regulations: The Federal rules restrict any use of the information to criminally investigate or prosecute any alcohol or drug abuse patient.[facility] INFORMATION SOURCE (unrecogn ized section and content) DATE CREATED AUTHOR 01/17/2020 [facility] DATE CREATED AUTHOR AUTHOR'S ORGANIZ ATION 06/08/2021 [employer] DATE CREATED AUTHOR AUTHOR'S ORGANIZ ATION 06/23/2021 [facility] DATE CREATED AUTHOR AUTHOR'S ORGANIZ ATION 10/09/2021 [facility] DATE CREATED AUTHOR AUTHOR'S ORGANIZ ATION 01/07/2022 [facility] DATE CREATED AUTHOR AUTHOR'S ORGANIZ ATION 11/16/2022 [facility] DATE CREATED AUTHOR AUTHOR'S ORGANIZ ATION 01/06/2024 [facility] DATE CREATED AUTHOR AUTHOR'S ORGANIZ ATION 02/28/2024 [facility] EPIC REASON FOR VISIT (unrecogniz [...] Active Team Status: Inactive Member Role Status Elisha Tyson DO Primary Care Provider Active Reyna [...] 2023 Team Status: Inactive Member Role Status Elisha Tyson DO Primary Care Provider Active Start: July 04, 2023 End: July 04, 2023 Artur Kang MD Attending Provider Activ e Start: July 04, 2023 End: July 04, 2023 Dormitory Supervisor Relationship Specialty Start Date End Date Ok Tyson DO [address] [place] [address] PCP - General Internal Medicine 07/19/22 Luis Antonio Blas, [address] [place] [address] PCP - Medical [place] [employer] 03/13/22 02/09/99 Dormitory Supervisor Relationship Specialty Start Date End Date Ok Tyson, DO [address] [place] [address] PCP - General Internal Medicine 07/19/22 Luis Antonio Blas, DO [address] [place] [address] PCP - Medical [place] [employer] 03/13/22 02/09/99 Dormitory Supervisor Relationship Specialty Start Date End Date Ok Tyson, DO [address] [place] [address] PCP - General Internal Medicine 07/19/22 Luis Antonio Blas, DO [address] [place] [address] PCP - Medical [place] [employer] 03/13/22 02/09/99 Dormitory Supervisor Relationship Specialty Start Date End Date Ok Tyson, [address] [place] [address] PCP - General Internal Medicine 07/19/22 Luis Antonio Blas, [address] [place] [address] PCP - Medical [place] [employer] 03/13/22 02/09/99 Dormitory Supervisor Relationship Specialty Start Date End Date Ok Tyson, [address] [place] [address] PCP - General Internal Medicine 07/19/22 Luis Antonio Blas DO [address] [place] [address] PCP - Medical [place] [employer] 03/13/22 02/09/99 Dormitory Supervisor Relationship Specialty Start Date End Date Ok Tyson DO [address] [place] [address] PCP - General Internal Medicine 07/19/22 Luis Antonio Blas DO [address] [place] [address] PCP - Medical [place] [employer] 03/13/22 02/09/99 Dormitory Supervisor Relationship Specialty Start Date End Date Ok Tyson, [address] [place] [address] PCP - General Internal Medicine 07/19/22 Ok Tyson, [address] [place] [address] PCP - Medical [place] [employer] 03/13/22 02/09/99 Dormitory Supervisor Relationship Specialty Start Date End Date Ok Tyson, [address] [place] [address] PCP - General Internal Medicine 07/19/22 Luis Antonio Blas DO [address] [place] [address] PCP - Medical [place] [employer] 03/13/22 01/22/24 Dormitory Supervisor Relationship Specialty Start Date End Date Ok Tyson DO [address] [place] [address] PCP - General Internal Medicine 07/19/22 Luis Antonio Blas, DO [address] [place] [address] PCP - Medical [place] [employer] 03/13/22 02/09/99 Dormitory Supervisor Relationship Specialty Start Date End Date Ok Tyson DO [address] [place] [address] PCP - General Internal Medicine 07/19/22 Dormitory Supervisor Relationship Specialty Start Date End Date Ok Tyson, DO [address] [place] [address] PCP - General Internal Medicine 07/19/22 Dormitory Supervisor Relationship Specialty Start Date End Date Ok Tyson, DO [address] [place] [address] PCP - General Internal Medicine 07/19/22 Dormitory Supervisor Relationship Specialty Start Date End Date Ok Tyson, DO [address] [place] [address] PCP - General Internal Medicine 07/19/22 Goals [...] BE BASED ON THE PRIMARY CLINICAL RECORDS. Employee Benefit Plans [facility]. provides no warranty or guarantee of the accuracy or completeness of information in this document.
[2024-03-06 08:33] LABS: Glucose Fasting 74 mg/dL (<95)
[2024-03-06 09:43] LABS: Glucose 1 Hour 242 mg/dL (<180)
[2024-03-06 11:24] LABS: Glucose 2 Hour 207 mg/dL (<155)
[2024-03-06 12:29] LABS: Glucose 3 Hour 86 mg/dL (<140)
== END 2024-03-06 08:04 | disposition home or self-care (01) ==
LOC: LAB 08:03
PROVIDERS: PCP Internal Medicine; Visit Provider Physician Assistant
DX: R73.09 Other abnormal glucose (principal)
CPT/HCPCS: 36415; 82951; 82952

== ENCOUNTER 2024-04-22 16:41 | Outpatient (OUT) | payer MEDICAID, SELFPAY ==
--- NOTE | 2024-04-22 16:50 | US_ITS ---
[place] [id number] Patient Name: SHIV ZUÑIGA MRN: [id number] date: 2000 Sex: F Assigned Patient Location: [facility] Current Patient Location: Accession/Order Number: [id number] Exam Date: 04/22/2024 19:02 Report Date: 04/22/2024 19:04 At the request of: MEJIA BROWN DO Procedure: US OB BPP w non-stress Ultrasound biophysical profile assessment HISTORY: Gestational diabetes none There is adequate breathing movement, gross body movement, tone and amniotic fluid volume with a total score of 8 out of 8. The amniotic fluid index is 15.3 cm within normal limits. The heart rate is 127 bpm. US/US OB BPP w non-stress IMPRESSION: Adequate ultrasound for biophysical profile Impression dictated by: Ferdinand Farr M.D.04/22/2024 7:04 PM Dictation Location: [employer] Electronically authenticated by: [id number] Date: 04/22/2024 19:04
--- OUTSIDE RECORDS SUMMARY | 2024-04-22 16:59 | XMS_ITS | CCD ---
Author Organization [facility] CliniSyil Care Team Providers Care Admissions Supervisor Name Role Phone Chica Whitmore Unavailable Unavailable Terence Pyle Unavailable Unavailable Nataprawira, Avani Unavailable Unavailable Chica Whitmore Unavailable Unavailable Victor M Bustillo Unavailable Unavailable Terence Pyle Primary Care Provider [phone] Pankaj Berger Unavailable Haim 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, COLLAR TURNER-LIFE TESTER OUTBOARD MOTORSChica Unavailable Unavailable Terence Pyle Unavailable Unavailable Nataprawira, Avani Unavailable Unavailable Chica Whitmore Unavailable Unavailable Victor M Bustillo Unavailable Unavailable Terence Pyle Unavailable Unavailable Unavailable Chica Whitmore Unavailable Unavailable OK TYSON Primary Care Physician Pankaj Berger Unavailable Albert White Unavailable Chacho Domingo Unavailable Laura Day Unavailable Brenda Armstrong Unavailable DO Ok Tyson Primary Care Provider DO Ok Tyson Attending Provider [phone] Terence Pyle Primary Care Unavailabl e Self, Referral Referring Unavailable Ms. Chica Whitmore Attending UnavailTerence Munoz Primary Care Unavailemre e Ms. Chica Whitmore Attending Unavaila DO Ok Dillon Primary Care Provider [phone] DO Terence Tolentino Attending Provider DO Chica eNwman Attending Provider [phone] MD Yuval Pete Admit Provider MD Yuval Pete Attending Provider [phone] MD Fernando [facility] Attending Provider [phone] Rayray Aquino Attending Unavailable VaschakDO Sanchez Primary Care Provider JOSE Molina Attending Provider MD Artur Kang Attending Provider Marbella TOLLIVER, Ok Munson Primary Care Provider Luis Antonio Blas DO Unavailable Ok Tyson DO Unavailable [phone] Luis Antonio Blas DO Unavailable [phone] Marbella TOLLIVER, Ok Primary Care Provider [phone] Micheal FOOT GATHERER-C, Yaritza Mast Attending Provider Tom Nunez DO Emergency Provider Yuval White MD Attending Provider Tom Nunez DO Emergency Provider BeverlyvaRahel Coto Attending Unavailable Didboris Rahel Admitting Unavailable Vaschak, Ok Primary Care Unavailable Yaritza Gonzalez Attending Unavailable Yaritza Gonzalez Admitting Unavailable Vaschak, Ok Primary Care Unavailable Giacomok, Ok Primary Care Unavailable Yuval Pete Attending Unavailable Yuval Pete Admitting Unavailable Artur Kang Attending Artur Mobley Admitting Unavai Ok Mckinney Primary Care Unavailable NAVID CANTU Attending Unavailable DIDBORIS RAHEL L Attending Unavailable YESICA, LINDA Attending Unavailable TERESITA GONZALEZSAY N Referring Unavailable YARITZA GONZALEZ Attending Unavailable NAVID CANTU Attending Unavailable SUZAN PATRICK Attending Unavailable YESICA, LINDA Attending Unavailable YESICA, LINDA Attending Unavailable NAVID CANTU Attending Unavailable YESICA LINDA Referring Unavailable TERENCE TOLENTINO Attending Unavailable OK TYSON Attending Unavailable OK TYSON Referring Unavailable NAVID CANTU Attending Unavailable VISCITERENCE Attending Unavailable VISCTERENCE Enriquez Referring Unavailable VASCHAK, OK J Attending Unavailable OK TYSON Referring Unavailable TERENCE TOLENTINO Attending Unavailable TERENCE TOLENTINO Referring Unavailable TERENCE TOLENTINO Referring Unavailable RAHEL MOLINA Attending Unavailable Allergies Allergy Classification Reported Allergen(s) Allergy Type Date of Onset Reaction(s) Facility (20 sources) Wheat preparation; Translations: [wheat] Drug Allergy 08-30-2022 Abdominal Pain [facility] Medications Current Medications Medication Drug Class(es) Dates [...] Start: 12-13-2020 [facility] 2 [facility] hours as needed Albuterol Sulfate HFA 108 (90 Base) MCG/ACT Inhalation Aerosol Solution INHALE 2 PUFFS BY MOUTH EVERY 4 HOURS NEEDED Quantity: 7 Refills: 0 Ordered: 13-Dec-2020 DO Start : 13-Dec-2020 Active Start: 12-13-2020 take 2 puff(s) [facility] every four hours as needed Albuterol [...] 7 days. 14 tablet 02/09/2024 02/16/2024 Active Blood Glucose Monitoring Suppl (D-Care Glucometer) w/Device kit (7 sources) Start: 03-08-2024 End: 03-08-2025 Blood Glucose Monitoring Suppl (D-Care Glucometer) w/Device kit Indications: Gestational diabetes mellitus (GDM), antepartum, gestational diabetes method of control unspecified , Elevated glucose tolerance test 1 kit Daily Use four times daily to check FSBS. In the morning prior to breakfast & 1 hour after each meal for a total of 4times daily. 1 kit 03/08/2024 03/08/2025 Active Continuous Glucose Pipe Organ Mechanic Apprentice (Dexcom G6 ore bridge operator) device (2 sources) Start: 04-06-2024 Continuous Glucose Pipe Organ Mechanic Apprentice (Dexcom G6 ore bridge operator) device Indications: Gestational diabetes mellitus (GDM), antepartum, gestational diabetes method of control unspecified Use as instructed 1 each 04/06/2024 Active Continuous Glucose Sensor (Dexcom G6 Sensor) misc (2 sources) Start: 04-06-2024 End: 05-06-2024 Continuous Glucose Sensor (Dexcom G6 Sensor) misc Indications: Gestational diabetes mellitus (GDM), antepartum, gestational diabetes method of control unspecified 1 each Every 10 (ten) days 3 each 1 04/06/2024 05/06/2024 Active Continuous Glucose Transmitter (Dexcom G6 transmitter) misc (2 sources) Start: 04-06-2024 Continuous Glucose Transmitter (Dexcom G6 transmitter) misc Indications: Gestational diabetes mellitus (GDM), antepartum, gestational diabetes method of control unspecified Use as instructed 1 each 04/06/2024 Active hydrOXYzine pamoate 25 mg oral capsule (20 [...] Quantity: 90 Refills: 1 Ordered: 13-Apr-2020 Haim 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, JOSE-LIFE TESTER OUTBOARD MOTORS, Chica Start : 13-Sep-2019 Active hyoscyamine sulfate [...] Three times a day for 30 Not-Taking isopropyl alcohol 0.7 ml/ml medicated pad (7 sources) Start: 03-08-2024 Alcohol Swabs (Alcohol Prep Pad) 70 % pads Indications: Gestational diabetes mellitus (GDM), antepartum, gestational diabetes method of control unspecified , Elevated glucose tolerance test Apply 1 Pad topically Daily Use four times daily to check FSBS. 150 each 3 03/08/2024 Active ivabradine 5 mg oral tablet (5 sources) Hyperpolarizatio n-activated Cyclic Nucleotide-gated Channel Lexi Start: 07-04-2023 End: 10-23-2023 take 1 tablet by mouth twice daily at mealtime Ivabradine (Corlanor) 5 mg tablet Active 2.5 MG PO Twice daily 90 July 03, 2023 11:00pm must administer with a meal/food linaclotide 0.145 [...] capsule Discontinued 72 MCG PO Daily October 15, 2020 11:00pm September 18, 2022 7:28am Start: 03-16-2020 Linzess 290 MC G Oral Capsule Quantity: 90 Refills: 0 Ordered: 16-Mar-2020 DO Start : 16-Mar-2020 Active Start: 11-17-2019 End: 11-26-2019 take 1 capsule by mouth once daily Linaclotide (Linzess) 145 mcg capsule Discontinued 145 MCG PO Daily November 16, 2019 11:00pm November 26, 2019 9:13am take 1 capsule by [facility] every twenty-four hours Linzess 72 MCG 1 cap(s) Orally Once a day for 30 day(s) Active take 1 capsule by mo [facility] every twenty-four hours Linzess 145 MCG 1 [...] 11/22/2023 Active Start: 07-03-2023 End: 07-04-2023 take 1 capsule by mouth once daily Magnesium Oxide 400 mg magnesium capsule Discontinued 400 MG PO Daily July 02, 2023 11:00pm July 04, 2023 9:12am meclofenamate 100 mg oral capsule (1 source) Start: 05-17-2021 End: 05-22-2021 take 1 capsule by mouth three times daily meclofenamate 100 mg Cap 100 mg = 1 cap(s), Oral, TID, X 5 day(s), # 15 cap(s), Refills(s) 0, Pharmacy: [place] [id number] [facility], 157.5, cm, 05/17/21 20:52:00 EDT, [...] 11/22/2023 Active Start: 03-27-2019 End: 11-12-2019 take 1 tablet by mouth every eight hours as needed for nausea Ondansetron 4 mg Tablet,Disintegrating Discontinued 4 MG PO Q8H as needed for Nausea March 27, 2019 12:00am November 12, 2019 8:48pm Start: 04-29-2018 Zofran 4 MG 1 tablet Orally prn for 21 days Sep, Active Start: 09-29-2017 End: 03-27-2018 take 1 tablet by mouth every eight hours as needed for nausea and vomiting Ondansetron (Zofran Odt) 4 mg tablet,disintegrating Discontinued 4 MG PO Q8H as needed for nausea and vomiting 9 3 September 28, 2017 11:00pm March 27, 2018 9:30pm Completed/Discontinued Medications Medication Drug Class(es) Dates Sig [...] Once monthly Quantity: 1 Refills: 3 Haim 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, COLLAR TURNER-LIFE TESTER [employer]ORS, Chica Start : 05-Nov-2019 Active 1.5 ML Pen amitriptyline hydrochloride 25 mg oral tablet (2 sources) Tricyclic Antidepressant Start: 10-25-2020 take 1 tablet by mouth at bedtime Amitriptyline HCl - 25 MG Oral Tablet TAKE 1 TABLET BY MOUTH AT BEDTIME Quantity: 30 Refills: 0 Ordered: 21-Nov-2020 DO Start : 25-Oct-2020 Complete azithromycin 250 mg oral tablet (19 sources) Macrolide Antimicrobial Start: 12-24-2023 End: 01-02-2024 [...] Tablet Discontinued 250 MG PO Daily October 08, 2020 11:00pm October 15, 2020 11:31pm start on day 2 of therapy first dose given in ER busPIRone hydrochloride 5 mg oral tablet (10 sources) Start: 12-02-2022 End: 03-25-2024 take 1 tablet by mouth twice daily Buspirone 5 mg tablet Discontinued 5 MG PO Twice daily July 02, 2023 11:00pm March 25, 2024 8:39am Start: 02-16-2020 End: 08-30-2020 take 1 tablet by mouth twice daily busPIRone HCl - 5 MG Oral Tablet take 1 tablet by mouth twice a day Quantity: 60 Refills: 2 Ordered: 09-Mar-2020 Haim GARCIA-MT, JOSE-Chica CURTIS Start : 16-Feb-2020 End : 30-Aug-2020 Complete cefdinir 300 mg oral capsule (17 sources) Cephalosporin Antibacterial Start: 11-05-2019 take 2 capsules by mouth once daily Cefdinir 300 MG Oral Capsule TAKE 2 CAPSULES DAILY. Quantity: 2 Refills: 0 Ordered: 05-Nov-2019 Haim HADDADN-PEARL GLUE OPERATOR, COLLAR TURNER-Chica CURTIS Start : 05-Nov-2019 Active cephalexin 500 mg oral capsule (11 sources) Cephalosporin Antibacterial Start: 09-29-2017 End: 03-27-2018 take 1 capsule by mouth every eight hours Cephalexin (Keflex) 500 mg capsule Discontinued 500 MG PO Q8H 30 08September 28, 2017 11:00pm March 27, 2018 9:29pm ciprofloxacin 500 mg oral tablet (1 source) [...] once daily Quantity: 30 Refills: 3 Haim HADDADN-PEARL GLUE OPERATOR, JOSE-Chica CURTIS Start : 25-Aug-2019 Active Start: 08-25-2019 Citalopram Hyd robromide 10 MG Oral Tablet TAKE 1 AND 1/2 TABLETS DAILY. Quantity: 45 Refills: 5 Haim 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, COLLAR TURNER-LIFE TESTER [employer], Chica Start : 25-Aug-2019 Active clonazePAM 0.5 mg oral tablet (20 sources) Benzodiazepine Start: 12-25-2020 take 0.5-1 tablets by mouth three times daily as needed for anxiety clonazePAM 0.5 MG Oral Tablet TAKE 1/2-1 TABLET BY MOUTH 3 TIMES A DAY NEEDED FOR ANXIETY Quantity: 60 Refills: 0 Ordered: 25-Jan-2021 DO Start : 25-Dec-2020 Active Start: 10-16-2020 End: 09-18-2022 take 1 tablet by mouth twice daily as needed for anxiety Clonazepam (Klonopin) 0.5 mg tablet Discontinued 0.5 MG PO Twice daily as needed for anxiety 14 October 16, 2020 5:51am September 18, 2022 7:28am dicyclomine hydrochloride 10 mg oral capsule (13 sources) Anticholinergic Start: 10-16-2020 End: 09-18-2022 take 1 capsule by mouth three times daily as needed Dicyclomine 10 mg capsule Discontinued 10 MG PO Three times daily as needed for abdominal discomfort October 15, 2020 11:00pm September 18, 2022 7:28am diphenhydrAMINE hydrochloride 25 mg oral capsule (11 sources) Histamine-1 Receptor Antagonist Start: 03-27-2019 End: 11-12-2019 take 1 capsule by mouth four times daily as needed for headache Diphenhydramine Hcl 25 mg capsule Discontinued 25 MG PO Four times daily as needed for headache March 27, 2019 12:00am November 12, 2019 8:48pm docusate sodium 100 mg oral capsule (8 sources) Start: 09-20-2022 End: 07-04-2023 take 1 capsule by mouth once daily Docusate Sodium (Colace) 100 mg capsule Discontinued 100 MG PO Daily September 19, 2022 11:00pm July 04, 2023 9:12am doxycycline hyclate 100 mg oral capsule (20 sources) Tetracycline-class Drug Start: 11-26-2019 End: 10-09-2020 take 1 capsule by mouth once daily Doxycycline Hyclate 100 mg capsule Discontinued 100 MG PO Daily November 25, 2019 11:00pm October 09, 2020 2:24pm Start: 07-19-2019 Doxycycline Hy clate 100 MG Oral Capsule Quantity: 30 Refills: 0 Ordered: 19-Jul-2019 DO Start : 19-Jul-2019 Active Start: 03-27-2019 End: 11-12-2019 take 1 capsule by mouth once daily Doxycycline Hyclate 100 mg capsule Discontinued 100 MG PO Daily March 27, 2019 12:00am November 12, 2019 8:48pm Doxycycline Not- Taking Doxycycline Acti ve DULoxetine 20 mg delayed release oral capsule (20 sources) Serotonin and Norepinephrine Reuptake Inhibitor Start: 02-05-2019 take 1 capsule by mouth twice daily DULoxetine HCl - 20 MG Oral Capsule Delayed Release Particles TAKE 1 CAPSULE BY MOUTH TWICE A DAY Quantity: 60 Refills: 4 Haim GARCIA-MT, Chica GROVES Start : 05-Feb-2019 Active Start: 10-11-2018 End: 10-16-2020 Duloxetine 40 mg capsule,del ayed release(DR/EC) Discontinued 60 MG PO Daily October 10, 2018 11:00pm October 15, 2020 11:31pm Start: 10-11-2018 End: 10-16-2020 take 60 mg by mouth once daily Duloxetine Discontinued 60 MG PO Daily October 11, 2018 12:00am October 16, 2020 12:31am Start: 09-30-2018 take 1 capsule by [facility] once daily DULoxetine HCl - 40 MG Oral Capsule Delayed Release Particles TAKE 1 CAPSULE BY MOUTH EVERY DAY Quantity: 30 Refills: 2 Haim GARCIA-MT, Chica GROVES Start : 30-Sep-2018 Active DULoxetine HCl N ot-Taking DULoxetine HCl A ctive 1 ml erenumab-aooe 70 mg/ml auto-injector (7 sources) Start: 04-09-2021 inject 1 mL by subcutaneous injection every month Aimovig 70 MG/ML Subcutaneous Solution Auto-injector ADMINISTER 1 ML UNDER THE SKIN 1 TIME MONTHLY Quantity: 1 Refills: 3 Ordered: 09-Apr-2021 Haim GARCIA-GERMAIN AMOR Kathleen Start : 09-Apr-2021 Active escitalopram 10 mg oral tablet (11 sources) Serotonin Reuptake Inhibitor Start: 09-26-2017 End: 10-11-2018 take 1 tablet by mouth once daily Escitalopram Oxalate 10 mg tablet Discontinued 10 MG PO Daily September 25, 2017 11:00pm October 11, 2018 6:25pm Norethindrone-E.Est radiol-Iron (20 sources) Estrogen Start: 03-27-2019 End: 10-09-2020 take 1 tablet by mouth once daily Norethindrone-E.Es tradiol-Iron 1 mg-20 mcg (21)/75 mg (7) tablet Discontinued 1 TAB PO Daily March 27, 2019 12:00am October 09, 2020 2:25pm Start: 03-27-2019 End: 10-09-2020 take 1 tablet by mouth once daily Norethindrone-E.Estradiol-Iron Discontin ued 1 TAB PO Daily March 27, 2019 1:00am October 09, 2020 3:25pm Start: 10-11-2018 End: 03-27-2019 Norethindrone-E.Estradiol-Ir on (03/01 ()) 1 mg-20 mcg (21)/75 mg (7) tablet Discontinued 1 TAB PO Daily October 10, 2018 11:00pm March 27, 2019 9:57pm Start: 10-11-2018 End: 03-27-2019 Norethindrone-E.Estradiol-Ir on (03/01 ()) 1 mg-20 mcg (21)/75 mg (7) tablet Discontinued 1 TAB PO Daily October 11, 2018 12:00am March 27, 2019 10:57pm ferrous sulfate 325 mg oral tablet (8 sources) Start: 09-20-2022 End: 07-04-2023 take 1 tablet by mouth once daily Ferrous Sulfate 325 mg (65 mg iron) tablet Discontinued 325 MG PO Daily September 19, 2022 11:00pm July 04, 2023 9:12am fluconazole 150 mg oral tablet (1 source) [...] Active Start: 11-01-2020 take 1 capsule by [facility] once daily FLUoxetine HCl - 10 MG Oral Capsule TAKE ONE CAPSULE BY MOUTH ONE TIME DAILY Quantity: 30 Refills: 0 Ordered: 01-Nov-2020 DO Start : 01-Nov-2020 Active Start: 03-29-2020 take 1 tablet by ashtyn th once daily FLUoxetine HCl - 20 MG Oral Tablet TAKE 1 & 1/2 TABLETS BY MOUTH DAILY Quantity: 135 Refills: 1 Ordered: 30-Aug-2020 Haim GARCIA-JOSE AMOR-Chica CURTIS Start : 29-Mar-2020 Active Start: 03-29-2020 take 1.5 tablets by mouth once daily FLUoxetine HCl - 20 MG Oral Tablet TAKE 1.5 TABLET Daily Quantity: 45 Refills: 3 Haim GARCIA-GERMAIN AMOR Kathleen Start : 29-Mar-2020 Active PROzac Active 1.5 ml fremanezumab-vfrm 150 mg/ml prefilled syringe (20 sources) Start: 11-12-2019 End: 09-18-2022 Fremanezumab-Vfrm (Ajovy Autoinjector) 225 mg/1.5 mL auto-injector Discontinued 225 MG SUBCUT As Directed November 11, 2019 11:00pm September 18, 2022 7:28am Start: 11-05-2019 End: 04-09-2021 inject 225 mg by subcutaneous injection every month Ajovy 225 MG/1.5ML Subcutaneous Solution Auto-injector INJECT 225 MG Once monthly Quantity: 1 Refills: 3 Ordered: 26-Mar-2021 Haim GARCIA-JOSE AMOR-Chica CURTIS Start : 05-Nov-2019 End : 09-Apr-2021 [...] Quantity: 1 Refills: 5 Ordered: 26-Apr-2021 Haim GARCIA-GERMAIN AMOR Kathleen Start : 26-Apr-2021 Active This will replace Chavoangela with insurance approval. ibuprofen 800 mg oral tablet (20 sources) Nonsteroidal Anti-inflammatory Drug Start: 10-13-2018 End: 03-27-2019 take 1 tablet by mouth every six hours as needed for pain Ibuprofen 800 mg tablet Discontinued 800 MG PO Q6H as needed for pain October 12, 2018 11:00pm March 27, 2019 9:57pm Start: 09-29-2017 End: 10-11-2018 Ibuprofen 800 mg tablet Disc ontinued 600 MG PO every 6 to 8 hours as needed for pain September 28, 2017 11:00pm October 11, 2018 6:25pm Start: 09-29-2017 End: 10-11-2018 Ibuprofen Discontinued 600 M G PO every 6 to 8 hours September 29, 2017 12:00am October 11, 2018 7:25pm Junel .07/09 (9 sources) Julyl .07/09 Not -Taking Act sigifredo ketorolac tromethamine 10 mg oral tablet (20 sources) Nonsteroidal Anti-inflammatory Drug, Cyclooxygenase Inhibitor Start: 03-29-2020 take 1 tablet by mouth every six hours Ketorolac Tromethamine 10 MG Oral Tablet take 1 tablet at headache onset may repeat once in 6 hours if needed. Quantity: 15 Refills: 0 Ordered: 22-Aug-2020 GERMAIN Manriquez Kathleen Start : 29-Mar-2020 Active Start: 03-27-2019 End: 11-12-2019 take 1 tablet by mouth four times daily as needed for pain Ketorolac 10 mg Tablet Discontinued 10 MG PO Four times daily as needed for Pain March 27, 2019 12:00am November 12, 2019 8:48pm Start: 04-29-2018 take 1 tablet by ashtyn th every six hours Ketorolac Tromethamine 10 MG Oral Tablet take 1 tablet at headache onset may repeat once in 6 hours if needed. Quantity: 15 Refills: 0 GERMAIN Manriquez Kathleen Start : 29-Apr-2018 Active lamoTRIgine 25 mg oral tablet (20 sources) Mood Stabilizer, Anti-epileptic Agent Start: 11-26-2019 End: 10-16-2020 take 50 mg by mouth twice daily Lamotrigine Discontinued 50 MG PO Twice daily November 26, 2019 12:00am October 16, 2020 12:31am Start: 03-27-2019 End: 11-12-2019 take 1 tablet by mouth four times daily Lamotrigine 25 mg tablet Discontinued 25 MG PO Four times daily March 27, 2019 12:00am November 12, 2019 8:48pm Start: 12-30-2018 End: 10-16-2020 take 2 tablets by mouth twice daily Lamotrigine 25 mg tablet Discontinued 50 MG PO Twice daily November 25, 2019 11:00pm October 15, 2020 11:31pm lamoTRIgine Not- Taking lamoTRIgine Acti ve LORazepam 0.5 mg oral tablet (20 sources) Benzodiazepine Start: 10-27-2019 End: 10-16-2020 Lorazepam 0.5 mg tablet Discontinued 0.5 MG PO As Directed as needed for Anxiety November 11, 2019 11:00pm October 15, 2020 11:31pm lubiprostone 0.008 mg oral capsule (13 sources) Chloride Channel Activator Start: 12-08-2019 End: 08-30-2020 Amitiza 8 MCG Oral Capsule Quantity: 60 Refills: 0 Ordered: 08-Dec-2019 DO Start : 08-Dec-2019 End : 30-Aug-2020 Complete Start: 12-07-2019 take 1 capsule by [facility] twice daily at mealtime Amitiza 8 MCG 1 capsule with food and water Orally Twice a day for 30 day(s) Nov, Not-Taking Magnesium (1 source) Start: 06-18-2023 End: 10-23-2023 take 1 capsule by mouth once daily Magnesium 400 MG capsule Indications: Palpitations Take 400 mg by mouth Daily 30 capsule 06/18/2023 10/23/2023 Discontinued metoclopramide 10 mg oral tablet (11 sources) Dopamine-2 Receptor Antagonist Start: 03-27-2019 End: 11-12-2019 take 1 tablet by mouth every six hours as needed for nausea and vomiting Metoclopramide Hcl (Reglan) 10 mg tablet Discontinued 10 MG PO Q6H as needed for nausea and vomiting March 27, 2019 12:00am November 12, 2019 8:48pm 24 hr metoprolol succinate 25 mg extended [...] Quantity: 270 Refills: 0 Ordered: 03-Sep-2021 Haim HADDADN-PEARL GLUE OPERATOR, JOSE-LIFE TESTER [employer], [place] Start : 11-May-2021 Active Josie 0.25-35 [...] 30-Jul-2020 Active naproxen 500 mg oral tablet (11 sources) Nonsteroidal Anti-inflammatory Drug Start: 03-27-2019 End: 11-12-2019 take 1 tablet by mouth twice daily as needed for pain Naproxen (Naprosyn) 500 mg tablet Discontinued 500 MG PO Twice daily as needed for pain March 27, 2019 12:00am November 12, 2019 8:48pm nitrofurantoin, macrocrystals 25 mg / nitrofurantoin, monohydrate 75 mg oral capsule (20 sources) Nitrofuran Antibacterial Start: 04-10-2022 End: 09-18-2022 take 1 capsule by mouth every twelve hours at mealtime Nitrofurantoin Monohyd/M-Cryst (Macrobid) 100 mg capsule Discontinued 100 MG PO Q12H April 10, 2022 12:00am September 18, 2022 7:28am Administer with a meal/food: swallow whole; do not open, crush, dissolve, or chew Start: 10-16-2020 End: 03-23-2021 take 1 capsule by mouth every twelve hours at mealtime Nitrofurantoin Monohyd/M-Cryst (Macrobid) 100 mg capsule Discontinued 100 MG PO Q12H 11 14October 15, 2020 11:00pm March 23, 2021 12:05pm administer with a meal/food; swallow whole; do not open, crush, dissolve , or chew omeprazole 40 mg delayed release oral capsule (20 sources) Proton Pump Inhibitor Start: 10-09-2020 End: 09-18-2022 take 1 capsule by mouth once daily Omeprazole 40 mg capsule,delayed release(DR/EC) Discontinued 40 MG PO Daily 84 84 October 08, 2020 11:00pm September 18, 2022 7:29am Omeprazole Activ e plecanatide 3 mg oral tablet (16 sources) Start: 11-26-2019 Trulance 3 MG Oral Tablet Quantity: 30 Refills: 0 Ordered: 26-Nov-2019 DO Start : 26-Nov-2019 Active Plecanatide (Trulance) 3 mg tablet (11 sources) Start: 11-26-2019 End: 10-09-2020 take 1 tablet by mouth once daily Plecanatide (Trulance) 3 mg tablet Discontinued 3 MG PO Daily November 25, 2019 11:00pm October 09, 2020 2:25pm Start: 11-26-2019 End: 10-09-2020 take 1 tablet by mouth once daily Plecanatide (Trulance) 3 mg tablet Discontinued 3 MG PO Daily November 26, 2019 12:00am October 09, 2020 3:25pm polyethylene glycol 3350 32274 mg powder for oral solution (20 sources) Osmotic Laxative Start: 11-13-2019 End: 10-16-2020 Polyethylene Glycol 3350 (Miralax) 17 gram/dose powder Discontinued 17 GM PO Twice daily as needed for constipation 510 November 12, 2019 11:00pm October 15, 2020 11:31pm MiraLax Active polyethylene glycol 3350 679508 mg / potassium chloride 2970 mg / sodium bicarbonate 6740 mg / sodium chloride 5860 mg / sodium sulfate 59343 mg powder for oral solution (11 sources) Osmotic Laxative Start: 11-17-2019 End: 11-26-2019 Peg 3350-Electrolytes (Golytely) 236-22.74-6.74 -5.86 gram recon soln Discontinued 240 ML PO Once 4000 November 16, 2019 11:00pm November 26, 2019 7:47am May drink 240 mLs or 8 ounces every 10 minutes until the entire bottle is consumed predniSONE 5 mg oral tablet (20 sources) Start: 10-09-2020 End: 03-23-2021 Prednisone 5 mg tablet Discontinued 5 MG PO Daily October 08, 2020 11:00pm March 23, 2021 12:05pm take 4 tablets for 14 days. take 3 tablets for 7 days. take 2 tablets for 7 days. take 1 tablet for 7 days. Start: 10-13-2018 End: 10-13-2018 take 2 tablets by mouth once daily Prednisone 20 mg tablet Discontinued 40 MG PO Daily October 12, 2018 11:00pm October 13, 2018 5:20pm Start: 10-13-2018 End: 10-13-2018 take 40 mg by mouth once daily Prednisone Discontinued 40 MG PO Daily October 13, 2018 12:00am October 13, 2018 6:20pm predniSONE Activ e Iwyxmeon-Kix-Ob-Fa (5 sources) Start: 09-18-2022 End: 07-04-2023 take 1 tablet by mouth once Nsuzaurz-Cwt-Bm-Fa Discontinued TAB PO September 18, 2022 12:00am July 04, 2023 10:12am Start: 09-18-2022 take 1 tablet by mouth once Pr enatal Nxaycpzj-Myo-Qs-Fa Active TAB PO September 18, 2022 12:00am Hlhykhee-Xai-Gt-Fa 1 mg Tablet (3 sources) Start: 09-18-2022 End: 07-04-2023 take 1 tablet by mouth once Gpfxzpnk-Iya-Jt-Fa 1 mg Tablet Discontinued TAB PO September 17, 2022 11:00pm July 04, 2023 9:12am promethazine hydrochloride 12.5 mg oral tablet (20 sources) Phenothiazine Start: 07-03-2023 End: 07-04-2023 take 1 tablet by mouth every six hours as needed Promethazine 12.5 mg tablet Discontinued 12.5 MG PO Every 6 hours as needed July 02, 2023 11:00pm July 04, 2023 9:12am Start: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 #### C BCNO #### [address] Hemoglobin (Bld) [Mass/Vol] 11.1 g/dL Low 11.8-15.4 [facility] Comment on above: Performed By: #### C BCNO #### [address] MCH (RBC) [Entitic mass] 31.3 pg Normal 24.7-34.3 [facility] Comment on above: Performed By: #### C BCNO #### [address] MCV (RBC) [Entitic vol] 90.8 fL Normal 80-100 T [facility] Comment on above: Performed By: #### C BCNO #### [address] Mean Corpuscular HGB Conc 34.4 g/dL Normal 32.0-35.0 [facility] Comment on above: Performed By: #### C BCNO #### [address] Platelet mean volume (Bld) [Entitic vol] 8.2 fL Normal 6.3-10.7 The [facility] Comment on above: Result Comment: PERF ORMED BY: [place] [address] PATHOLOGIST [employer]PERATOR [employer] SHAHANA BRITTON M.D. Performed By: #### C BCNO #### [address] Platelets (Bld) [#/Vol] 219 10*3/uL Normal 150-450 [facility] Comment on above: Performed By: #### C BCNO #### [address] RBC (Bld) [#/Vol] 3.55 10*6/uL Low 3.60-5.00 The [facility] Comment on above: Performed By: #### C BCNO #### [address] WBC (Bld) [#/Vol] 7.2 10*3/uL Normal 3.8-11.6 [facility] Comment on above: Performed By: #### C BCNO #### [address] Laboratory - Chemistry and C hemistry - challengeon 01-03-2024 Albumin [Mass/Vol] 3.8 g/dL 3.5 - 5.7 g/dL [facility] Albumin/Globulin [Mass ratio] 1.7 {ratio} [facility] ALP [Catalytic activity/Vol] 34 U/L 34 - 104 U/L [facility] ALT [Catalytic activity/Vol] 9 U/L 7 - 52 U/L [facility] Anion gap [Moles/Vol] 8.8 mmol/L 6.0 - 15.0 meq/L [facility] AST [Catalytic activity/Vol] 18 U/L 13 - 39 U/L [facility] Bilirubin [Mass/Vol] 0.4 mg/dL 0.3 - 1 .0 mg/dL [facility] Calcium [Mass/Vol] 8.6 mg/dL 8.6 - 10. 3 mg/dL [facility] Chloride [Moles/Vol] 106 mmol/L 98 - 10 7 mmol/L [facility] CO2 [Moles/Vol] 25.6 mmol/L 21.0 - 31.0 mmol/L [facility] Creatinine (U) [Mass/Vol] 0.48 mg/dL Low 0.60 - 1.20 mg/dL [facility] Globulin (S) [Mass/Vol] 2.2 g/dL N [facility] Glucose [Mass/Vol] 70 mg/dL 70 - 100 mg/dL [facility] Comment on above: Random Glucose Refer ence Range is dependent on time and content of last meal. Glucose of more than 200 mg/dL in a nonstressed, ambulatory subject supports the diagnosis of Diabetes Mellitus. ADA recommended reference range Potassium [Moles/Vol] 4.4 mmol/L 3.5 - 5.1 mmol/L [facility] Protein [Mass/Vol] 6 g/dL Low 6.4 - 8.9 g/dL [facility] Sodium [Moles/Vol] 136 mmol/L 136 - 145 mmol/L [facility] Urea nitrogen [Mass/Vol] 9 mg/dL 7 - 25 mg/dL [facility] Laboratory - Hematology and Cell countson 01-03-2024 Erythrocyte distribution width (RBC) [Ratio] 13.3 % 11.9 - 15.3 % [facility] Hematocrit (Bld) [Volume fraction] 32.2 % Low 34.0 - 46.4 % [facility] Hemoglobin (Bld) [Mass/Vol] 11.1 g/dL Low 11.8 - 15.4 g/dL [facility] MCH (RBC) [Entitic mass] 31.3 pg 24.7 - 34.3 pg [facility] MCHC (RBC) [Mass/Vol] 34.4 g/dL 32.0 - 35.0 g/dL [facility] MCV (RBC) [Entitic vol] 90.8 fL 80 - 100 fL [facility] Platelet mean volume (Bld) [Entitic vol] 8.2 fL 6.3 - 10.7 fL [facility] Platelets (Bld) [#/Vol] 219 10*3/uL 150 - 450 10*3/uL [facility] Laboratory - Urinalysison RBC LM.HPF (Urine sed) [#/Area] 3.55 10*6/uL Low 3.60 - 5.00 10*6/uL [facility] WBC LM.HPF (Urine sed) [#/Area] 7.2 10*3/uL 3.8 - 11.6 10*3/uL [facility] Leukocytes [#/volume] correc dionicio for nucleated erythrocytes in Blood by Automated counOrdered By: Yaritza Gonzalez on 01-03-2024 WBC corrected for nucl RBC Auto (Bld) [#/Vol] Leukocytes [#/volume] corrected for nucleated erythrocytes in Blood by Automated coun 3.8-11.6 [facility] MCH Auto (RBC) [Entitic mass ]Ordered By: Yaritza Gonzalez on 01-03-2024 MCH (RBC) [Entitic mass] MCH [Entitic mass] by Automated count 24.7-34.3 [facility] MCHC Auto (RBC) [Mass/Vol]Or dered By: Yaritza Gonzalez on 01-03-2024 MCHC (RBC) [Mass/Vol] MCHC [Mass/volume] by Automated count 32.0-35.0 [facility] MCV Auto (RBC) [Entitic vol] Ordered By: Yaritza Gonzalez on 01-03-2024 MCV (RBC) [Entitic vol] MCV [Entitic vol ume] by Automated count 80-100 [facility] No Panel Informationon 01-02 ESTIMATED GFR mL/Min [facility] Interpretation and review of laboratory results Abnormal [facility] Interpretation and review of laboratory results Abnormal [facility] No Panel InformationOrdered By: Yaritza Gonzalez on 01-03-2024 Estimated GFR (CKD-EPI) > 60.0 mL/Min [facility] Creatinine Clearance (Chem N/A [facility] Platelet mean volume Auto (B ld) [Entitic vol]Ordered By: Yaritza Gonzalez on 01-03-2024 Platelet mean volume (Bld) [Entitic vol] Platelet mean volume [Entitic volume] in Blood by Automated count 6.3-10.7 [facility] Platelets Auto (Bld) [#/Vol] Ordered By: Yaritza Gonzalez on 01-03-2024 Platelets (Bld) [#/Vol] Platelets [#/vol ume] in Blood by Automated count 150-450 [facility] Potassium [Moles/volume] in Serum or PlasmaOrdered By: Yaritza Gonzalez on 01-03-2024 Potassium [Moles/Vol] Potassium [Moles/volume] in Serum or Plasma 3.5-5.1 [facility] Protein [Mass/volume] in Ser um or PlasmaOrdered By: Yaritza Gonzalez on 01-03-2024 Protein [Mass/Vol] Protein [Mass/volume] in Serum or Plasma Low 6.4-8.9 [facility] RBC Auto (Bld) [#/Vol]Ordere d By: Yaritza Gonzalez on 01-03-2024 RBC (Bld) [#/Vol] Erythrocytes [#/volume] in Blood by Automated count Low 3.60-5.00 [facility] Serum or plasma albumin/glob ulin mass ratioOrdered By: Yaritza Gonzalez on 01-03-2024 Albumin/Globulin [Mass ratio] Serum or plasma albumin/globulin mass ratio [facility] Serum or plasma anion gap de terminationOrdered By: Yaritza Gonzalez on 01-03-2024 Anion gap [Moles/Vol] Serum or plasma anion gap determination 6.0-15.0 [facility] Sodium [Moles/volume] in Ser um or PlasmaOrdered By: Yaritza Gonzalez on 01-03-2024 Sodium [Moles/Vol] Sodium [Moles/volume] in Serum or Plasma 136-145 [facility] Urea nitrogen [Mass/volume] in Serum or PlasmaOrdered By: Yaritza Gonzalez on 01-03-2024 Urea nitrogen [Mass/Vol] Urea nitrogen [Mass/volume] in Serum or Plasma 7-25 [facility] IGP,APTIMA HPV,AGE GDLNon AGE GDLN ACOG TESTING Note . [facility] Comment on above: TESTS RESULT FLAG UN ITS REF RANGE LAB Clinician Provided Cytology Information Source.............Cervix No. of containers..01 ThinPrep Vial Age Dmitriyo PAULOG Raine... FLAG LEGEND: L-Low Normal,H-High Normal,LL-Alert Low,HH-Alert High <-Panic Low,>-Panic High,A-Abnormal,AA-Critical Abnormal Performed at: 01 [facility] [place] [address] Laila Addison MD, IGP, RFX APTIMA HPV ASCU Note . [facility] Comment on above: TESTS RESULT FLAG UN ITS REF RANGE LAB DIAGNOSIS: 02 NEGATIVE FOR INTRAEPITHELIAL LESION OR MALIGNANCY. THIS SPECIMEN WAS RESCREENED PART OF OUR OTHER SPORTS COACH OR INSTRUCTOR PROGRAM. Specimen adequacy: 02 Satisfactory for evaluation. Endocervical and/or squamous metaplastic cells (endocervical component) are present. Performed by: 03 Rachael Baig, Sheeter Operator (ASC) QC reviewed by: 02 Mary Gonsalves Sheeter Operator (ASCP) . 02 Note: Note 02 The [...] <-Panic Low,>-Panic High,A-Abnormal,AA-Critical Abnormal Performed at: [address] [phone] Laila Addison MD, 03 [facility] [address] [id number] V Hugo PhD, Performed at: = - [facility] [id number] [employer] Control Room Operator: Laila Addison MD, Phone: [phone] Performed at: [facility] [id number] [employer] Room Operator: Laila Addison MD, Phone: [phone] SPATULA-ALONE CERVIX [facility] US.doppler Lower extremity win villanueva 01-02-2024 EXAM: [facility] US LOWER EXTREMITY VENOUS DUPLEX LEFT [...] PITER CULVER MD at 02-Jan-2024 05:15:11 PM [facility] Piter Culver MD - 01/02/2024 EXAM: [facility] US LOWER EXTREMITY VENOUS DUPLEX LEFT [...] PITER CULVER MD at 02-Jan-2024 05:15:11 PM [facility] Radiology Study observation (narrative) [facility] US.doppler Lower extremity v ein - leftOrdered By: Piter Culver on 01-02-2024 [facility] Work Phone: [facility] US LOWER EXTREMITY VENO US DUPLEX LEFTon 01-02-2024 [facility] US LOWER EXTREMITY VENOUS DUPLEX LEFT EXAM: [facility] US LOWER EXTREMITY VENOUS DUPLEX LEFT [...] PITER CULVER MD at 02-Jan-2024 05:15:11 PM [facility] Normal Not Available RECURRENT VAGINITIS (HTRX)on 12-26-2023 ATOPOBIUM VAGINAE 0 [facility] ATOPOBIUM VAGINAE Not detected [facility] BVAB 2,3 (BACTERIAL VAGINOSIS ASSOCIATED BACTERIA 2, 3); MOBILUNCUS SPP 0 [facility] BVAB 2,3 (BACTERIAL VAGINOSIS ASSOCIATED BACTERIA 2, 3); MOBILUNCUS SPP Not detected [facility] ROWENA ALBICANS, PARAPSILOSIS, TROPICALIS 0 [facility] ROWENA ALBICANS, PARAPSILOSIS, TROPICALIS Not detected [facility] ROWENA GLABRATA 0 [facility] ROWENA GLABRATA Not detected [facility] ROWENA KRUSEI 0 [facility] ROWENA KRUSEI Not detected [facility] CHLAMYDIA TRACHOMATIS 0 [facility] CHLAMYDIA TRACHOMATIS Not detected N [facility] GARDNERELLA VAGINALIS 0 [facility] GARDNERELLA VAGINALIS Not detected N [facility] MEGASPHAERA (TYPES 1, 2) 0 [facility] MEGASPHAERA (TYPES 1, 2) Not detected [facility] MYCOPLASMA GENITALIUM 0 [facility] MYCOPLASMA GENITALIUM Not detected N [facility] NEISSERIA GONORRHOEAE 0 [facility] NEISSERIA GONORRHOEAE Not detected N [facility] TRICHOMONAS VAGINALIS 0 [facility] TRICHOMONAS VAGINALIS Not detected N [facility] Urinalysis macro (dipstick) panel (U)on 12-24-2023 Bilirubin, UA Negative Negative - 4(70) +++ mg/dL [facility] Blood, UA Negative Negative - 50 Soto/mcL [facility] Clarity, UA Clear [facility] Color, UA Yellow [facility] Glucose, UA Negative Negative - 1999(110) ++++ mg/dL [facility] Interpretation and review of laboratory results Normal [facility] Ketones, UA Positive Negative - 160(16) ++++ mg/dL [facility] Leukocytes, UA Positive Negative - 500+++ Adarsh/mcL [facility] Nitrite, UA Negative Negative - Positive [facility] pH, UA 5.5 5 - 9 [facility] Protein, UA Negative Negative - 1999(20) ++++ mg/dL [facility] Spec Grav, UA 1.02 1 - 1.03 [facility] Urobilinogen, UA 1.0 0.2 - 12 mg/dL [facility] Urinalysis macro (dipstick) panel (U)on 11-25-2023 Bilirubin, UA Negative Negative - 4(70) +++ mg/dL [facility] Blood, UA Negative Negative - 50 Soto/mcL [facility] Clarity, UA Clear [facility] Color, UA Yellow [facility] Glucose, UA Negative Negative - 1999(110) ++++ mg/dL [facility] Interpretation and review of laboratory results Abnormal [facility] Ketones, UA Negative Negative - 160(16) ++++ mg/dL [facility] Leukocytes, UA Trace Negative - 500+++ Adarsh/mcL [facility] Nitrite, UA Negative Negative - Positive [facility] pH, UA 5.5 5 - 9 [facility] Protein, UA Negative Negative - 1999(20) ++++ mg/dL [facility] Spec Grav, UA 1.02 1 - 1.03 [facility] Urobilinogen, UA 0.2 0.2 - 12 mg/dL [facility] ALL CBC WITH AUTO DIFFon BASOPHILS ABSOLUTE AUTO 0.0 N [facility] Basophils/100 WBC (Bld) 0.4 % 0.2 - 2.0 % [facility] Eosinophils/100 WBC (Bld) 1.3 % 0.9 - 7.0 % [facility] Erythrocyte distribution width (RBC) [Ratio] 11.9 % 11.0 - 15.0 % [facility] Hematocrit (Bld) [Volume fraction] 37.1 % 36.0 - 48.0 % [facility] Hemoglobin (Bld) [Mass/Vol] 12.6 g/dL 12.0 - 16.0 g/dL [facility] IMMATURE GRANULOCYTES ABS AUTO 0.04 High [facility] Immature granulocytes/100 WBC (Bld) 0.5 % 0.0 - 0.5 % [facility] Interpretation and review of laboratory results Abnormal [facility] LYMPHOCYTES ABSOLUTE AUTO 1.6 [facility] Lymphocytes/100 WBC (Bld) 18.7 % Low 20.5 - 60.0 % [facility] MCH (RBC) [Entitic mass] 30.5 pg 26.7 - 34.0 pg [facility] MCHC (RBC) [Mass/Vol] 34.0 g/dL 29.9 - 35.2 g/dL [facility] MCV (RBC) [Entitic vol] 89.8 fL 81.0 - 99.0 fL [facility] MONOCYTES ABSOLUTE AUTO 0.8 N [facility] Monocytes/100 WBC (Bld) 9.0 % 1.7 - 12.0 % [facility] NEUTROPHILS ABSOLUTE AUTO 5.9 [facility] Neutrophils/100 WBC (Bld) 70.1 % 43.0 - 75.0 % [facility] Platelet mean volume (Bld) [Entitic vol] 10.5 fL 9.5 - 13.5 fL [facility] TBH EO # 0.1 [facility] TBH PLT 231 [facility] TB RBC 4.13 Low [facility] WBC 8.4 [facility] HCG ( test) Ql (U)o n 10-23-2023 Interpretation and review of laboratory results Abnormal [facility] Preg Test, Ur Positive [facility] Urinalysis macro (dipstick) panel (U)on 10-23-2023 Bilirubin, UA Negative Negative - 4(70) +++ mg/dL [facility] Blood, UA Positive Negative - 50 Soto/mcL [facility] Comment on above: small Clarity, UA Clear [facility] Color, UA Yellow [facility] Glucose, UA Negative Negative - 1999(110) ++++ mg/dL [facility] Interpretation and review of laboratory results Abnormal [facility] Ketones, UA Negative Negative - 160(16) ++++ mg/dL [facility] Leukocytes, UA Positive Negative - 500+++ Adarsh/mcL [facility] Comment on above: large Nitrite, UA Negative Negative - Positive [facility] pH, UA 5.5 5 - 9 [facility] Protein, UA Negative Negative - 1999(20) ++++ mg/dL [facility] Spec Grav, UA 1.025 1 - 1.03 [facility] Urobilinogen, UA 0.2 0.2 - 12 mg/dL [facility]PG ECG *OFFICE ONLY*on 06-11 FPG ECG *OFFICE ONLY* [facility] [place] [address] [place] [address] Electrocardiograph Report Signed Patient: Shiv Evangelista MR#: [id number] : 2000 Acct:[id number] Age/Sex: 23 / F ADM Date: 07/04/23 Loc: EKGCARDIO Room: Type: DEP CLI Attending Dr: Artur Kang MD Ordering Provider: [...] abnormality Abnormal ECG Confirmed by Emmy Jimenez ([id number]) on 07/08/2023 1:09:14 PM Referred By: Electronically Signed By:Emmy Jimenez Transcribed By: MUS Signed By Emmy Jimenez MD [id number] Normal [facility] Basophils Auto (Bld) [#/Vol] Ordered By: YUVAL PETE on 09-19-2022 Basophils (Bld) [#/Vol] 0.0 10*3/uL 0.0-0.2 [facility] Basophils/100 WBC Auto (Bld) Ordered By: YUVAL PETE on 09-19-2022 Basophils/100 WBC (Bld) 0.2 % . F [facility] Eosinophils Auto (Bld) [#/Vo l]Ordered By: YUVAL PETE on 09-19-2022 Eosinophils (Bld) [#/Vol] 0.0 10*3/uL 0.0-0.45 [facility] Eosinophils/100 WBC Auto (Bl d)Ordered By: YUVAL PETE on 09-19-2022 Eosinophils/100 WBC (Bld) 0.1 % . [facility] Erythrocyte distribution wid th Auto (RBC) [Ratio]Ordered By: YUVAL PETE on 09-19-2022 Erythrocyte distribution width (RBC) [Ratio] 13.3 % 11.9-15.3 [facility] Hematocrit Auto (Bld) [Volum e fraction]Ordered By: YUVAL PETE on 09-19-2022 Hematocrit (Bld) [Volume fraction] 28.0 % 34.0-46.4 [facility] Hemoglobin [Mass/volume] in BloodOrdered By: YUVAL PETE on 09-19-2022 Hemoglobin (Bld) [Mass/Vol] 9.3 g/dL 11.8-15.4 [facility] Leukocytes [#/volume] correc dionicio for nucleated erythrocytes in Blood by Automated counOrdered By: YUVAL PETE on 09-19-2022 WBC corrected for nucl RBC Auto (Bld) [#/Vol] 14.2 10*3/uL 3.8-11.6 [facility] Lymphocytes Auto (Bld) [#/Vo l]Ordered By: YUVAL PETE on 09-19-2022 Lymphocytes (Bld) [#/Vol] 1.2 10*3/uL 1.00-4.8 [facility] Lymphocytes/100 WBC Auto (Bl d)Ordered By: YUVAL PETE on 09-19-2022 Lymphocytes/100 WBC (Bld) 8.5 % . [facility] MCH Auto (RBC) [Entitic mass ]Ordered By: YUVAL PETE on 09-19-2022 MCH (RBC) [Entitic mass] 28.7 pg 24.7-34.3 [facility] MCHC Auto (RBC) [Mass/Vol]Or dered By: YUVAL PETE on 09-19-2022 MCHC (RBC) [Mass/Vol] 33.2 g/dL 32.0-35.0 [facility] MCV Auto (RBC) [Entitic vol] Ordered By: YUVAL PETE on 09-19-2022 MCV (RBC) [Entitic vol] 86.3 fL 80-100 F [facility] Monocytes Auto (Bld) [#/Vol] Ordered By: YUVAL PETE on 09-19-2022 Monocytes (Bld) [#/Vol] 1.5 10*3/uL 0.0-0.8 [facility] Monocytes/100 WBC Auto (Bld) Ordered By: YUVAL PETE on 09-19-2022 Monocytes/100 WBC (Bld) 10.2 % . F [facility] Neutrophils Auto (Bld) [#/Vo l]Ordered By: YUVAL PETE on 09-19-2022 Neutrophils (Bld) [#/Vol] 11.5 10*3/uL 1.8-7.7 [facility] Neutrophils/100 WBC Auto (Bl d)Ordered By: YUVAL PETE on 09-19-2022 Neutrophils/100 WBC (Bld) 81.0 % . [facility] Nucleated erythrocytes [Pres ence] in Blood by Automated countOrdered By: YUVAL PETE on 09-19-2022 Nucleated RBC Auto Ql (Bld) 0.0 /100{WBC} 0-0.5 [facility] Platelet mean volume Auto (B ld) [Entitic vol]Ordered By: YUVAL PETE on 09-19-2022 Platelet mean volume (Bld) [Entitic vol] 8.8 fL 6.3-10.7 [facility] Platelets Auto (Bld) [#/Vol] Ordered By: YUVAL PETE on 09-19-2022 Platelets (Bld) [#/Vol] 181 10*3/uL 150-450 [facility] RBC Auto (Bld) [#/Vol]Ordere d By: YUVAL PETE on 09-19-2022 RBC (Bld) [#/Vol] 3.24 10*6/uL 3.60-5.00 [facility] WBC Auto (Bld) [#/Vol]Ordere d By: YUVAL PETE on 09-19-2022 WBC (Bld) [#/Vol] 14.2 10*3/uL 3.8-11.6 [facility] Amphetamine Screen Ql (U)Ord ered By: YUVAL PETE on 09-18-2022 Amphetamines Ql (U) Negative Negative [facility] Automated epithelial cells c ount in urine sediment (number/area)Ordered By: YUVAL PETE on 09-18-2022 Epithelial cells Auto (Urine sed) [#/Area] 10-19 [HPF] 0-2 [facility] Automated erythrocytes count in urine sediment (number/area)Ordered By: YUVAL PETE on 09-18-2022 RBC Auto (Urine sed) [#/Area] 0-1 [HPF] 0-4 [facility] Automated leukocytes count i n urine sediment (number/area)Ordered By: YUVAL PETE on 09-18-2022 WBC Auto (Urine sed) [#/Area] 20-49 [HPF] 0-4 [facility] Automated urine hyaline cast s count (number/volume)Ordered By: YUVAL PETE on 09-18-2022 Hyaline casts Auto (U) [#/Vol] None seen [LPF] 0-1 [facility] Barbiturates [Presence] in U rine by Screen methodOrdered By: YUVAL PETE on 09-18-2022 Barbiturates Screen Ql (U) Negative Negative [facility] Benzodiazepines Screen Ql (U )Ordered By: YUVAL PETE on 09-18-2022 Benzodiazepines Ql (U) Negative Negative [facility] Benzoylecgonine [Presence] i n Urine by Screen methodOrdered By: YUVAL PETE on 09-18-2022 Benzoylecgonine Screen Ql (U) Negative Negative [facility] Bilirubin Test strip Ql (U)O rdered By: YUVAL PETE on 09-18-2022 Bilirubin Ql (U) Negative Negative [facility] Color Auto (U)Ordered By: CHARLES PETE on 09-18-2022 Color (U) Yellow Yellow [facility] Ketones Auto test strip (U) [Mass/Vol]Ordered By: YUVAL PETE on 09-18-2022 Ketones (U) [Mass/Vol] Negative Negative [facility] Nitrite Test strip Ql (U)Ord ered By: YUVAL PETE on 09-18-2022 Nitrite Ql (U) Negative Negative [facility] Opiates [Presence] in Urine by Screen methodOrdered By: YUVAL PETE on 09-18-2022 Opiates Screen Ql (U) Negative Negative [facility] Phencyclidine Screen Ql (U)O rdered By: YUVAL PETE on 09-18-2022 Phencyclidine Ql (U) Negative Negative [facility] Comment on above: These are unconfirme d results and should not be used for legal purposes. Drug Cut-Off Concentration: AMPH 1000 ng/mL LESLEY 200 ng/mL NETTIE 200 ng/mL COCM 300 ng/mL OP 300 ng/mL PCP 25 ng/mL Protein Auto test strip (U) [Mass/Vol]Ordered By: YUVAL PETE on 09-18-2022 Protein (U) [Mass/Vol] Negative Negative [facility] Reagin Ab [Presence] in Seru m by RPROrdered By: YUVAL PETE on 09-18-2022 Reagin Ab RPR Ql (S) Non-Reactive Non Reactive [facility] Comment on above: Performed at: [place] [id number] Director: Tony Avila PhD, Phone: [phone] Specific gravity Auto test s trip (U) [Rel density]Ordered By: YUVAL PETE on 09-18-2022 Specific gravity (U) [Rel density] 1.004 1.001-1.030 [facility] Urine bacteria detection by automated methodOrdered By: YUVAL PETE on 09-18-2022 Bacteria Auto Ql (U) 2+ None Seen [facility] Urine clarity by refractomet ry automatedOrdered By: YUVAL PETE on 09-18-2022 Clarity Refractometry automated (U) Cloudy Clear [facility] Urine culture routineOrdered By: YUVAL PETE on 09-18-2022 Bacteria identified Cx Nom (U) 2 Days [facility] Urine glucose measurement by automated test strip (mass/volume)Ordered By: YUVAL PETE on 09-18-2022 Glucose Auto test strip (U) [Mass/Vol] Normal mg/dL Normal [facility] Urine hemoglobin detection b y automated test stripOrdered By: YUVAL PETE on 09-18-2022 Hemoglobin Auto test strip Ql (U) Trace Negative [facility] Urine leukocyte esterase det ection by automated test stripOrdered By: YUVAL PETE on 09-18-2022 Leukocyte esterase Auto test strip Ql (U) 4+ Negative [facility] Urobilinogen Auto test strip (U) [Mass/Vol]Ordered By: YUVAL PETE on 09-18-2022 Urobilinogen (U) [Mass/Vol] Normal mg/dL Normal [facility] pH Auto test strip (U)Ordere d By: YUVAL PETE on 09-18-2022 pH (U) 7.0 [pH] 5.0-9.0 [facility] Group B Streptococcus cultur eOrdered By: Chica Newman on 09-03-2022 S. agalactiae Org specific cx Ql (Unsp spec) No Group B Beta Streptococcus Isolated 3 Days [facility] Amphetamine Screen Ql (U)Ord ered By: Terence Tolentino on 08-10-2022 Amphetamines Ql (U) Negative Negative [facility] Automated erythrocytes count in urine sediment (number/area)Ordered By: Terence Tolentino on 08-10-2022 RBC Auto (Urine sed) [#/Area] 0-1 [HPF] 0-4 [facility] Automated leukocytes count i n urine sediment (number/area)Ordered By: Terence Tolentino on 08-10-2022 WBC Auto (Urine sed) [#/Area] 10-19 [HPF] 0-4 [facility] Barbiturates [Presence] in U rine by Screen methodOrdered By: Terence Tolentino on 08-10-2022 Barbiturates Screen Ql (U) Negative Negative [facility] Benzodiazepines Screen Ql (U )Ordered By: Terence Tolentino on 08-10-2022 Benzodiazepines Ql (U) Negative Negative [facility] Benzoylecgonine [Presence] i n Urine by Screen methodOrdered By: Terence Tolentino on 08-10-2022 Benzoylecgonine Screen Ql (U) Negative Negative [facility] Bilirubin Test strip Ql (U)O rdered By: Terence Tolentino on 08-10-2022 Bilirubin Ql (U) Negative Negative [facility] Color Auto (U)Ordered By: Carla Tolentino on 08-10-2022 Color (U) Yellow Yellow [facility] Ketones Auto test strip (U) [Mass/Vol]Ordered By: Terence Tolentino on 08-10-2022 Ketones (U) [Mass/Vol] Negative Negative [facility] Laboratory - UrinalysisOrder ed By: Terence Tolentino on 08-10-2022 Hyaline casts LM Ql (Urine sed) None seen [LPF] 0-8 [facility] Nitrite Test strip Ql (U)Ord ered By: Terence Tolentino on 08-10-2022 Nitrite Ql (U) Negative Negative [facility] No Panel InformationOrdered By: Terence Tolentino on 08-10-2022 Membranes Rupture (PAMG-1) Negative Negative [facility] Opiates [Presence] in Urine by Screen methodOrdered By: Terence Tolentino on 08-10-2022 Opiates Screen Ql (U) Negative Negative [facility] Phencyclidine Screen Ql (U)O rdered By: Terence Tolentino on 08-10-2022 Phencyclidine Ql (U) Negative Negative [facility] Comment on above: These are unconfirme d results and should not be used for legal purposes. Drug Cut-Off Concentration: AMPH 1000 ng/mL LESLEY 200 ng/mL NETTIE 200 ng/mL COCM 300 ng/mL OP 300 ng/mL PCP 25 ng/mL Protein Auto test strip (U) [Mass/Vol]Ordered By: Terence Tolentino on 08-10-2022 Protein (U) [Mass/Vol] Negative Negative [facility] Specific gravity Auto test s trip (U) [Rel density]Ordered By: Terence Tolentino on 08-10-2022 Specific gravity (U) [Rel density] 1.004 1.001-1.030 [facility] Squamous epithelial cells de tection in urine sediment by light microscopyOrdered By: Terence Tolentino on 08-10-2022 Epithelial cells.squamous LM Ql (Urine sed) 0-1 [HPF] 0-2 [facility] Urine bacteria detection by automated methodOrdered By: Terence Tolentino on 08-10-2022 Bacteria Auto Ql (U) None seen None Seen [facility] Urine clarity by refractomet ry automatedOrdered By: Terence Tolentino on 08-10-2022 Clarity Refractometry automated (U) Clear Clear [facility] Urine culture routineOrdered By: Terence Tolentino on 08-10-2022 Bacteria identified Cx Nom (U) 2 Days [facility] Urine glucose measurement by automated test strip (mass/volume)Ordered By: Terence Tolentino on 08-10-2022 Glucose Auto test strip (U) [Mass/Vol] Normal mg/dL Normal [facility] Urine hemoglobin detection b y automated test stripOrdered By: Terence Tolentino on 08-10-2022 Hemoglobin Auto test strip Ql (U) Negative Negative [facility] Urine leukocyte esterase det ection by automated test stripOrdered By: Terence Tolentino on 08-10-2022 Leukocyte esterase Auto test strip Ql (U) 4+ Negative [facility] Urobilinogen Auto test strip (U) [Mass/Vol]Ordered By: Terence Tolentino on 08-10-2022 Urobilinogen (U) [Mass/Vol] Normal mg/dL Normal [facility] pH Auto test strip (U)Ordere d By: Terence Tolentino on 08-10-2022 pH (U) 7.0 [pH] 5.0-9.0 [facility] Cytology Cervical or vaginal smear or scraping studyon 03-12-2022 [facility] Coding Summary.on 11-28-2021 Coding Summary. CD:[id number] Gh0bWw+PGhlYWQ+PE1FV IQeS70lgUXtgH4BM9nGB E7KQEDPBPMWWP8BVS0vw BE3ILbaB8AknzJz QkinaDVhKN14PDr1EUK5 vCmoHSfvhT9hyILxZ9y1 SzSyFX51qA90FNibJBFv BgW6CuCgsnbqjUSe M0zhFuYwjURlBni+PHRh YmxlIHdpZHRoPScxMDAl BkHfdCqbOR5jYg3zNZFg LWNvbGxhcHNlOiBj r1loENEbNUusSV9wkZbr L3DdtQW5VJOft3i4Fa71 dHI+RKMgYUG8lSdrTNpo s279AiVkj3mjNLU2 cGSmUVpoZZW4S49fw0O6 BMNvQYWvYSG3cAP6cH4p tAqajafkU7FcjOBrToJ8 QSW0pTHmnT8czWdi grahfA0hZid+P25TMV0I SGVMIP2DLww9Q0GuApih dHI+VR50CVQtRT20qYYe jVNil9jsvBa1KcFr WFFmWTY1pRavAWmic8Pi PFNzS24mfMSvh2R4SUGv lRzdxYJrBsTwaZM8cH6f MVcsqbbbd1xjwmeh Utqfo7linl18hE68Q63v XIpkBTHrREW4FHQcSPKe dXsdkf7njS0iJq8+IDxj k2btm8jswTg0UrXv YLIeuuHmbZyeWCF2m9Rh Ai46I1BxiRcwx1PrJyx9 wo00zFOvk6S0fGV8LJlv DHEnyH5eNZmpXxO6 TGEoMzTfkB31nBEmQPvt Uw1etMrwdRszVT4pCSVx zzveNRJpkC0vREUhkJSq rBziCN3rQLSwqkjw a863WyGuJPH5PHSyrJRw D9BxpC1jUqAdFTCnKVOo K4GsmZTvECwlK883HDms DxU2BPDlokRvO4Uo CTVvgGlgRjQ5x5R3Pi9J c3QotngkBHE2FVdpFEYo FfQ8AmDdReU7W3IdNsm5 ZMWflPdeFX2hT0Ag TXRfgdsdewkkbBN5HQEf EZPauA43fWHwIPuiZa2a y4X4v432CDJfWFCvdT81 Zc4qtCfsGSIzfADZ zN5hnvvtn6noffhsEjKm HOIeYWh4YWo7ODLfxCie AiOzYJJ4JrD2TCS0yNOt iM5ebYukihsqqJ9a Oyc+P66fwG9kASZ0GYH3 bgwsPCYdwqSqDF87GT72 X9QbClzbzKGcgQS+PGRp tjBqcKziTA4fZjZy a1rxy7VtLVsfQ5RqRGMg PGxvUhr1BYRxGKO8eQG8 aT3hACEkNMczz9P2kBA9 J9EnmaWhnj6bf4fh QLFxQDdlR67aaRJnd4Y7 PNCpdHG2GRXbqDcnWdJo sF86Llx+BXUwmFmtc7Kq Cyizm6jae6xtpGe7 IjMwJSIgdmFsaWduPSJ0 m0TbCe45Z05eIBgfRVYw FRDnVDKyHIYnlUubol4f zN6tZc0+PGNvbCB3 eJP3vR0oUHViVzL1BKkn O893VeOkuLLyQueyb2bg r0hnbSp7WfIzBJIubfDb bDddGAJ3c8XaPy33 P06bIOabSBHmTBWuDJZl LJRkkTnvvj0dzS5bDx3+ HO0rz5xnrg77qY75hQM+ SPSuGEQ9fNsdWFrx XCJyzA3uFIzcFtX5CZHu LgAqbW15zPYkWOsyOu5k oRtbkOslLP2mHUPxxtnq u959PzBcw5huQUTe eWTbJJxnNVZ3K21ye1U6 BBYhGMWaYQB5eVP2aE6k bGlnbjogbGVmdDsgdmVy mPvzZXyoJUtkU358 IHRvcDsnPlBhdGllbnQg WbXkUJf7X7GvCch8AMGv bDwaLX9wxJWlTQexUg4w hPvemMekBQ5kWEWb lvczm869LwBwv7kuBAYm cPZoMQsgWIF7X46kf9N0 BLTgPJVbJYZ9qLQ9bZ6s bGlnbjogbGVmdDsg paJhvEvpJAeuWCnuO244 IHRvcDsnPkJpcnRoIERh rGE9JU04JB36fKUpu9B8 vSZ7P7MvHNKnbfco jjvglVY8OGOnYDFemD03 Uh0zoCmnNs2oSKFxLXN2 ATInaVEaT1YukL2fIvGv ZTSiGZQxB4PilQQl LTibR068MPnnIeE0WYNv mbArS3VoHJJucDlbVtC5 o9T2Ww2LK4I5GP80UE40 rJYkl3R0hRT6R2Qk NFYsfdhdflqjoQU3PHUy ZGFxvH95Qa3flUcpKe5e XTTjSAH7OEPyuXXnM6Co bT0oAbNaDWZyQRCw M8DwsFJcFOrfA535FUsz XzN9CGGyfvFxV8MgLVSt qMbnJiS8e8M2Pq1UJYm6 FM81VS97kYIwu4M5 cSF7Z0OnGVDiwbgrrgcd bRH4YQCzNKDukN88Tg3n bAemZw9rKYFgEGJ2KLXl nTHsS6NzsD6rTlZf XCMmQURjS8JheXCwBJfq H473CUkpYfM3UZOsuuNg T2UzWHPitNcbMwT9i5I4 Zh7EEXKyWH55LUK7 mGP2UR38XZ32I9CyKsba dGFibGU+PHRhYmxlIHdp ZHRoPScxMDAlJyBzdHls DX2tJe2gREJmTGCx rWfraRJpUdFaa0maMAXr DCagVS2avTvzC5ByvSZ8 CWIro5p0Ts82G73dR6Sa dXA+VQJuxCY5jDN9 vU2dBjTcTuV7JEizW139 FnTluZCrQbndz8ege7do bWk2ZgN8MDWxhhLolAsy FSM3q7EvJp51R23o IHdpZHRoPSIxNSUiIHZh yImufi0xeF9rKe1+PGNv rCR2pDB8yH4oLzAsYtJ1 JWqxO177AsRodLBw Bkaen1opj5jgnHx4ToYb ZJQsiwMhkWygAMD9h1Ss Ft52K8GsqNqha9GbCsw6 bg38nNAxp7K9hWN0 A4XfCQNjelfvsEBsgJrg IJ3gCVMicewjKMPanT9x JJAdK6z6ZhQxRmG9GBmj K1PmcxD0CAHqcIJs DVlsLPD5V67ch5K2EIQu PWUaXVD1eAR4nX8usOcb bjogbGVmdDsgdmVydGlj ARgxQXuaB273NLUc fCazKBHejN6nRGMzmLOg yYrpXM0gDRTsozqxCgUO NVdkCXLGNE4XKTI7M7Ss Uiz2BEYanQckNP8t nKRdESkxPu4mtRtvxHae TP4iBRRvvtwgWLJvpM5v NJCmkWRcmEjlMD0xYYGy gbxjm375UsPsFNN4 IRJsjZQxA4HacO6mPbAm BQOuVMUbA9IksMNaRDis D220RVgsHeR9NVWzzlCv P8FlSHDknYngYdV3 h7O4Df8lQH9hFL4jILMt FD70CS05aYTkq6C2aFF1 P0BfBRPwqbzmcuoaiRJ7 HNDyPCRyvQ27nBZw CXrjYo4la9J3p561NVDl ELZtcZ80Vg5yvTkmDQDs iFLTiG0hkliby5omnnre DhQcEKCeGBj6RDh0 XJHahYbaKaZkBQI7ReL8 EVL7pTObdR1loHkleock uH9cIln+MjAgWWVhcnM8 W2RtDdb6TKSbiZrd GF0haZEeGRebKi1zlCye pVpoCC0qGVSgjlcyJOTs kA2mXWScwTPhoRfxPV2i TZZuwgrbf707LrNa DYJ4JPCnuIMkS8GwlW9v UsTwEONhDQDhQ2RrlLGd ATmiN374CQgdCbW5ZBIb jzVmT8HrGEBbvHpm KhM4i0E3Mr8WRO7paVN0 W9SfNug0GJNhdWogDZ0p hMSiXHbvDq4xqHytoDop IT7iHJLzbeslPVMh zQ8dMINvgLXrdVqiRD8d UOLxxkalr593YqFlZPG8 ACFqiLJxP9LbaY2aHgMh CVKsKBMnE3BhjFQn HQdqB896QKxhOhR1DVGb rmEsZ3TnJTZxjRshLtF0 a7K8Dm3TqMCsZ5OdC3c2 J4SuFjziaTO+PC90 INPxPN20yHNyhMUww9mh iNs2UdJdUQJrQAU5vKrl BBpqs0UiXRLqC23orPIj d0V7TAAjhTeiuPNa ZuAbhGC8kN2iEJlhqhgi t4aulknkVdtug0rejz22 pS20O35tLEliNBJsIZOi QMTtIQGcjCveci9e gV2yVj4+CATxzZZ7vFZ3 tD0fCdMuLrG5WZkiS890 OtTamFBuWkcpc3hig8mn gVu3IdRnFYOiirMt kCahWUA2m1LdGm56Y06u IHdpZHRoPSIyMCUiIHZh nXbwfd5dwM2tXn9+PC9j h7qevp31vZ86oPY+ AYDvEXR0bHtjHJdtTHEr yD8zLWmiReZ5XTWkSwJm tQ00iYDtVSqsLn5rxVkl aRxpSS4kVETlbmpg o638HdOyy8mzUIMipUCb QNjhYFD7Z14al9C9NMFp XOCtYDL1tFO3eV3wjYtn bjogbGVmdDsgdmVy zTdcWCicBCdvZ179BOPh cZiqZkLspWYpT6yynhTQ FI7nJseksIP+PHRkIHN0 xUqyGIiqUDArzU2w SSClN7f6RhJzThA9SCxj R6AcvrV1EBYcxGCpVEFv bFCBuN5jndeip0ufhsrm RrMiALHvOKk3ZHn3 KWUaqFcjDjSiXXM4FpS9 WRS8xTMekC3vwRerovql hR6iSyf+RklOOjwvdGQ+ XPVxTFL2aFspPUkq CYZqaQ5sKITjC0r1HnZt QcG7HTprF0JxsbS5WZPu oZFmZEZjwIHXfQ1buqbg b2avocqvBtDlHBDq MNn3XZq1YXFtsOloZgUx ZEQ1ZjK3GHR5aKFjiD8x bNmlmhlgtX3wMtj+TVJO OjwvdGQ+PHRkIHN0 oPggPYmxMENwaB2aTWYr N8o4UrYgUhK7QDabC4Vv awV7SGNofZSeRPFqlLNF rC5ttuytd0vyhjsv OkCtKSNcTKi5JKq8YHOj kPvbBnLeMPE0IrY9ELL1 vIJccD6qrXjvdvnybA3e Oyc+IZX7NXL7MZ54 NJ69I5ZdNlxryULnqDS+ PHRhYmxlIHdpZHRoPScx XIBgCqXsmRhcLQ5yBf2a ZGVyLWNvbGxhcHNl OiBj (more content not included)... [facility] Discharge Instructionson Discharge Instructions [id number]#1.00CD:127 [facility] ED Clinical Summaryon 2021 ED Clinical Summary [place] [address] ED Clinical Summary Person Information Name: SHIV EVANGELISTA Gauri Younger/[facility] Age: 21 Years : 2000 Sex: [...] 11/25/2021 23:47:16 11/25/2021 23:47:16 ADDRESS: [id number] [id number] [facility] NOTES: MEDICAL INFORMATION: Prescriptions Given: Medications to Continue with No Changes Other Medications hydrOXYzine (Vistaril 25 mg Cap) 1-2 cap(s) By Mouth 4 times a day as needed as needed for anxiety. Refills: 0. PATIENT EDUCATION INFORMATION: Instructions: Migraine Headache Follow up: With: Address: When: [address], [address] [address] Business (1) In 3 days DIAGNOSIS: Migraine headache [facility] ED Note-Physicianon 11-27-19 ED Note-Physician [...] 5 mg/mL Inj, 10 mg, IV Push [id number] [F], 1000 mL, IV Disposition Plan Discharge Prescription List Prescriptions No active prescription medications Follow-up With When Contact Information [place] TYSON In [address], [address] [place] [address] Business (1) Additional Instructions: Patient Education Migraine [...] Diagnostic Results No qualifying data available. [facility] Comment on above: Result Comment: [...] these instructions at home: Medicines ? Take zzdk-kpd-etsjnba and prescription medicines only as told by your health care provider. ? Ask your health care provider if the medicine prescribed to you: ? Requires you to avoid driving or using heavy machinery. ? Can cause constipation. You may need to take these actions to prevent or treat constipation: ? Drink enough fluid to keep your urine pale yellow. ? Take czbf-vna-ciyemzn or prescription medicines. ? Eat foods that [...] different or (more content not included)... [facility] ED Patient Summaryon 022 ED Patient Summary [address] [address] Patient Discharge Instructions Person Information Name: SHIV EVANGELISTA Age: 21 Years Arrival Date: 11/25/2021 18:57:45 Discharge Diagnosis: Migraine headache Primary Care Physician: OK TYSON DO Provider Information Primary Provider: Rayray Aquino DO Advanced Powerplant Operator:None The exam and treatment you received in the Emergency Department were for an urgent problem and are not intended as complete care. It is important that you follow up with a doctor, nurse practitioner, or physician?s computer assistant for ongoing care. If your symptoms [...] Instructions: With: Address: When: [address] , [address] [address] Business (1) In 3 days In the event that this physician does not participate in your insurance network, please consult with your insurance company to find a nearby participating provider. Patient Education Materials: Migraine Headache A MESSAGE TO ALL PATIENTS REGARDING OPIOIDS PRESCRIPTION OPIOIDS: WHAT YOU NEED TO KNOW Prescription opioids can be used to help relieve qszczwhu-qn-jmcphn pain and are often prescribed following a [...] be struggling with addiction, tell your health childcare provider and ask for guidance or call [facility]?S National Helpline at 4-626-263-[employer]. [employer] Source: [employer] Department of Health and Human (more content not included)... [facility] Progress Note-Nurseon 2021 Progress Note-Nurse Pt. brought back to ed bed 13 [facility] Progress Note-Nurse Pt. states her headache is completely gone and she is ready to go home. [facility] Consent for Treatmenton 11-10 Consent for Treatment [id number] 21 [id number] #1.00CD:127 [facility] Urine culture routineOrdered By: Ok Tyson on 10-11-2021 Bacteria identified Cx Nom (U) Klebsiella pneumoniae [facility] Automated epithelial cells c ount in urine sediment (number/area)Ordered By: Ok Tyson on 10-09-2021 Epithelial cells Auto (Urine sed) [#/Area] 20-49 [HPF] 0-2 [facility] Automated erythrocytes count in urine sediment (number/area)Ordered By: Ok Tyson on 10-09-2021 RBC Auto (Urine sed) [#/Area] None seen [HPF] 0-4 [facility] Automated leukocytes count i n urine sediment (number/area)Ordered By: Ok Tyson on 10-09-2021 WBC Auto (Urine sed) [#/Area] 1-2 [HPF] 0-4 [facility] Automated urine hyaline cast s count (number/volume)Ordered By: Ok Tyson on 10-09-2021 Hyaline casts Auto (U) [#/Vol] None seen [LPF] 0-1 [facility] Bilirubin Test strip Ql (U)O rdered By: Ok Tyson on 10-09-2021 Bilirubin Ql (U) Negative Negative [facility] Color Auto (U)Ordered By: Anna Tyson on 10-09-2021 Color (U) Yellow Yellow [facility] Ketones Auto test strip (U) [Mass/Vol]Ordered By: Ok Tyson on 10-09-2021 Ketones (U) [Mass/Vol] Negative Negative [facility] Nitrite Test strip Ql (U)Ord ered By: Ok Tyson on 10-09-2021 Nitrite Ql (U) Negative Negative [facility] Protein Auto test strip (U) [Mass/Vol]Ordered By: Ok Tyson on 10-09-2021 Protein (U) [Mass/Vol] Negative Negative [facility] Specific gravity Auto test s trip (U) [Rel density]Ordered By: Ok Tyson on 10-09-2021 Specific gravity (U) [Rel density] 1.005 1.001-1.030 [facility] Urine bacteria detection by automated methodOrdered By: Ok Tyson on 10-09-2021 Bacteria Auto Ql (U) 3+ None Seen [facility] Urine clarity by refractomet ry automatedOrdered By: Ok Tyson on 10-09-2021 Clarity Refractometry automated (U) Clear Clear [facility] Urine glucose measurement by automated test strip (mass/volume)Ordered By: Ok Tyson on 10-09-2021 Glucose Auto test strip (U) [Mass/Vol] Normal mg/dL Normal [facility] Urine hemoglobin detection b y automated test stripOrdered By: Ok Tyson on 10-09-2021 Hemoglobin Auto test strip Ql (U) Negative Negative [facility] Urine leukocyte esterase det ection by automated test stripOrdered By: Ok Tyson on 10-09-2021 Leukocyte esterase Auto test strip Ql (U) 2+ Negative [facility] Urobilinogen Auto test strip (U) [Mass/Vol]Ordered By: Ok Tyson on 10-09-2021 Urobilinogen (U) [Mass/Vol] Normal mg/dL Normal [facility] pH Auto test strip (U)Ordere d By: Ok Tyson on 10-09-2021 pH (U) 7.0 [pH] 5.0-9.0 [facility] Albumin [Mass/volume] in Ser um or PlasmaOrdered By: Ok Tyson on 09-13-2021 Albumin [Mass/Vol] 4.5 g/dL 3.2-5.5 [facility] Creatinine and Glomerular fi ltration rate.predicted panel (S/P/Bld)Ordered By: Ok Tyson on 09-13-2021 Creatinine [Mass/Vol] 0.71 mg/dL 0.44-1.03 [facility] Estimated glomerular filtrat ion rate (GFR) non- AmericanOrdered By: Ok Tyson on 09-13-2021 GFR/1.73 sq M.predicted among non-blacks MDRD (S/P/Bld) [Vol rate/Area] > 60 mL/Min [facility] Globulin Calc (S) [Mass/Vol] Ordered By: Ok Tyson on 09-13-2021 Globulin (S) [Mass/Vol] 2.5 g/dL [facility] No Panel InformationOrdered By: Ok Tyson on 09-13-2021 Estimated GFR () > 60 mL/Min [facility] Comment on above: GFR estimated refere nce range: According to KDOQI guidelines, <60 ml/min/1.73m2 is sufficient to diagnose a patient with chronic kidney disease. Pharmacy Creatinine Clearance (Chem N/A [facility] Protein [Mass/volume] in Ser um or PlasmaOrdered By: Ok Tyson on 09-13-2021 Protein [Mass/Vol] 7.0 g/dL 6.1-7.9 [facility] Serum or plasma alanine schmid otransferase measurement without P-5'-P (enzymatic activiOrdered By: Ok Tyson on 09-13-2021 ALT No additional P-5'-P [Catalytic activity/Vol] 18 U/L 10-60 [facility] Serum or plasma albumin/glob ulin mass ratioOrdered By: Ok Tyson on 09-13-2021 Albumin/Globulin [Mass ratio] 1.8 {ratio} [facility] Serum or plasma alkaline pascale sphatase measurement (enzymatic activity/volume)Ordered By: Ok Tyson on 09-13-2021 ALP [Catalytic activity/Vol] 51 U/L 32-92 [facility] Serum or plasma aspartate am inotransferase measurement (enzymatic activity/volume)Ordered By: Ok Tyson on 09-13-2021 AST [Catalytic activity/Vol] 23 U/L 10-42 [facility] Serum or plasma calcium acosta urement (mass/volume)Ordered By: Ok Tyson on 09-13-2021 Calcium [Mass/Vol] 9.2 mg/dL 8.2-10.2 [facility] Serum or plasma chloride danis surement (moles/volume)Ordered By: Ok Tyson on 09-13-2021 Chloride [Moles/Vol] 104 mmol/L 95-114 [facility] Serum or plasma glucose acosta urement (mass/volume)Ordered By: Ok Tyson on 09-13-2021 Glucose [Mass/Vol] 82 mg/dL 70-100 [facility] Comment on above: ADA recommended [...] on 09-13-2021 Sodium [Moles/Vol] 139 mmol/L 136-146 [facility] Serum or plasma total biliru bin measurement (mass/volume)Ordered By: Ok Tyson on 09-13-2021 Bilirubin [Mass/Vol] 0.4 mg/dL 0.3-1.2 [facility] Serum or plasma total carbon dioxide measurement (moles/volume)Ordered By: Ok Tyson on 09-13-2021 CO2 [Moles/Vol] 28.3 mmol/L 22.0-30.0 [facility] Serum or plasma urea nitroge n measurement (mass/volume)Ordered By: Ok Tyson on 09-13-2021 Urea nitrogen [Mass/Vol] 8 mg/dL 11-02 [facility] Q - Strep pneumo Ab 23 serot ypeson 06-15-2021 SEROTYPE 1 (1) 91.7 Normal [facility] Comment on above: Order Comment: [facility] performed at: [employer] [facility],, [address] [place] [address], , Drafting Layout Worker: Angela Feng MD,PhD,MANOHAR [facility] Collection Date/Time: [facility] Results Received Date/Time: [facility] Reported Date/Time: FASTING: NO Performed By: #### [id number] #### [facility] Default [address] [place] [address] SEROTYPE 12 (12F) 3.7 Normal [facility] Comment on above: Order Comment: [facility] performed at: [employer] [facility],, [id number] [place] [place] [address], , Drafting Layout Worker: Angela Feng MD,PhD,MANOHAR Quest Collection Date/Time: Quest Results Received Date/Time: [facility] Reported Date/Time: FASTING: NO Performed By: #### 1 [id number] #### [facility] Default [address] [place] [address] SEROTYPE 14 (14) 163.4 Normal [facility] [place] Comment on above: Order Comment: Quest Testing performed at: [facility], [employer],, [address] [place] [address], , Drafting Layout Worker: Angela Feng MD,PhD,MANOHAR Quest Collection Date/Time: Quest Results Received Date/Time: [facility] Reported Date/Time: FASTING: NO Performed By: #### 1 [id number] #### [facility] Default [address] [place] [address] SEROTYPE 17 (17F) 4.6 Normal [facility] Specialist Comment on above: Order Comment: Quest Testing performed at: [facility], [employer] [facility],, [address] [place] [address], , Drafting Layout Worker: Angela Feng MD,PhD,MANOHAR Quest Collection Date/Time: [facility] Results Received Date/Time: [facility] Reported Date/Time: FASTING: NO Performed By: #### 1 [id number] #### [facility] Default [address] [place] [address] SEROTYPE 19 (19F) 18.2 Normal [facility] Specialist Comment on above: Order Comment: [facility] Testing performed at: EZ, [employer] [facility],, [address] [place] [address], , Drafting Layout Worker: Angela Feng MD,PhD,MANOHAR Quest Collection Date/Time: [facility] Results Received Date/Time: [facility] Reported Date/Time: FASTING: NO Performed By: #### 1 [id number] #### [facility] Default [address] [place] [address] SEROTYPE 2 (2) 4.[address] [facility] Search And Rescue Officer Comment on above: Order Comment: Quest Testing performed at: EZ, [employer],, [address] [place] [address], , Drafting Layout Worker: Angela Feng MD,PhD,MANOHAR Quest Collection Date/Time: [facility] Results Received Date/Time: Quest Reported Date/Time: FASTING: NO Performed By: #### 1 [id number] #### [facility] Default [address] [place] [address] SEROTYPE 20 (20) 3.8 Normal [facility] [place] Comment on above: Order Comment: Quest Testing performed at: , [employer],, [address] [place], [place] [address], , Drafting Layout Worker: Angela Feng MD,PhD,MANOHAR Quest Collection Date/Time: [facility] Results Received Date/Time: [facility] Reported Date/Time: FASTING: NO Performed By: #### 1 [id number] #### [facility] Default [address] [place] [address] SEROTYPE 22 (22F) 4.0 Normal [facility] Comment on above: Order Comment: Quest Testing performed at: [facility], [employer],, [address] [place] [address], , Drafting Layout Worker: Angela Feng MD,PhD,MANOHAR Quest Collection Date/Time: [facility] Results Received Date/Time: [facility] Reported Date/Time: FASTING: NO Performed By: #### 1 [id number] #### [facility] Default [address] [place] [address] SEROTYPE 23 (23F) 5.7 Normal [facility] Comment on above: Order Comment: Quest Testing performed at: [facility], [employer],, [facility] [place], [place], , Drafting Layout Worker: Angela Feng MD,PhD,MANOHAR Quest Collection Date/Time: [facility] Results Received Date/Time: Quest Reported Date/Time: FASTING: NO Performed By: #### 1 [id number] #### [facility] Default [address] [place] [address] SEROTYPE 26 (6B) 7.1 Normal [facility] Search And Rescue Officer Comment on above: Order Comment: Quest Testing performed at: [facility], [employer] [facility],, [facility] [place], [place], , Drafting Layout Worker: Angela Feng MD,PhD,MANOHAR Quest Collection Date/Time: Quest Results Received Date/Time: Quest Reported Date/Time: FASTING: NO Performed By: #### 1 [id number] #### [facility] Default [address] [place] [address] SEROTYPE 3 (3) 5.2 Normal [facility] Specialist Comment on above: Order Comment: Quest Testing performed at: [facility], [employer] [facility],, [facility] [place], [place], , Drafting Layout Worker: Angela Feng MD,PhD,MANOHAR Quest Collection Date/Time: Quest Results Received Date/Time: [facility] Reported Date/Time: FASTING: NO Performed By: #### 1 [id number] #### [facility] Default [address] [place] [address] SEROTYPE 34 (10A) 20.3 Normal [facility] Specialist Comment on above: Order Comment: Quest Testing performed at: [facility], [employer] [facility],, [address] [place], [place], , Drafting Layout Worker: Angela Feng MD,PhD,MANOHAR Quest Collection Date/Time: [facility] Results Received Date/Time: Quest Reported Date/Time: FASTING: NO Performed By: #### 1 [id number] #### [facility] Default [address] [place] [address] SEROTYPE 4 (4) 2.[address] [facility] Search And Rescue Officer Comment on above: Order Comment: Quest Testing performed at: [facility], [employer] [facility],, [address] [place] [address], , Drafting Layout Worker: Angela Feng MD,PhD,MANOHAR Quest Collection Date/Time: Quest Results Received Date/Time: Quest Reported Date/Time: FASTING: NO Performed By: #### 1 [id number] #### [facility] Default [address] [place] [address] SEROTYPE 43 (11A) 10.7 Normal [facility] Comment on above: Order Comment: Quest Testing performed at: [facility], [employer] [facility],, [address] [place] [address], , Drafting Layout Worker: Angela Feng MD,PhD,MANOHAR Quest Collection Date/Time: Quest Results Received Date/Time: Quest Reported Date/Time: FASTING: NO Performed By: #### 1 [id number] #### [facility] Default [address] [place] [address] SEROTYPE 5 (5) 2.[address] [facility] Search And Rescue Officer Comment on above: Order Comment: Quest Testing performed at: [facility], [employer] [facility],, [address] [place] [address], , Drafting Layout Worker: Angela Feng MD,PhD,MANOHAR Quest Collection Date/Time: [facility] Results Received Date/Time: [facility] Reported Date/Time: FASTING: NO Performed By: #### 1 [id number] #### [facility] Default [address] [place] [address] SEROTYPE 51 (7F) 4.3 [facility] Comment on above: Order Comment: Quest Testing performed at: [facility], [employer] [facility],, [address] [place], [place] [address], , Drafting Layout Worker: Angela Feng MD,PhD,MANOHAR Quest Collection Date/Time: Quest Results Received Date/Time: [facility] Reported Date/Time: FASTING: NO Performed By: #### 1 [id number] #### [facility] Default [address] [place] [address] SEROTYPE 54 (15B) 9.3 [facility] Comment on above: Order Comment: Quest Testing performed at: [facility], [employer] [facility],, [address] [place] [address], , Drafting Layout Worker: Angela Feng MD,PhD,MANOHAR Quest Collection Date/Time: [facility] Results Received Date/Time: Quest Reported Date/Time: FASTING: NO Performed By: #### 1 [id number] #### [facility] Default [address] [place] [address] SEROTYPE 56 (18C) 15.2 [facility] Comment on above: Order Comment: Quest Testing performed at: [facility], [employer] [facility],, [address] [place], [place] [address], , Drafting Layout Worker: Angela Feng MD,PhD,MANOHAR Quest Collection Date/Time: Quest Results Received Date/Time: Quest Reported Date/Time: FASTING: NO Performed By: #### 1 [id number] #### [facility] Default [address] [place] [address] SEROTYPE 57 (19A) 1.3 Normal [facility] Comment on above: Order Comment: Quest Testing performed at: EZ, [employer] [facility],, [address] [place] [address], , Drafting Layout Worker: Angela Feng MD,PhD,MANOHAR Quest Collection Date/Time: Quest Results Received Date/Time: [facility] Reported Date/Time: FASTING: NO Performed By: #### 1 [id number] #### [facility] Default [address] [place] [address] SEROTYPE 68 (9V) 2.5 [facility] Comment on above: Order Comment: Quest Testing performed at: EZ, [employer] [facility],, [address] [place] [address], , Drafting Layout Worker: Angela Feng MD,PhD,MANOHAR Quest Collection Date/Time: Quest Results Received Date/Time: [facility] Reported Date/Time: FASTING: NO Performed By: #### 1 [id number] #### [facility] Default [address] [place] [address] SEROTYPE 70 (33F) 2.5 [facility] Comment on above: Order Comment: Quest Testing performed at: E[facility], [employer] [facility],, [address] [place] [address], , Drafting Layout Worker: Angela Feng MD,PhD,MANOHAR Quest Collection Date/Time: Quest [...] serotype-specific titers may have less robust responses. [employer] uses a multi-analyte immunodetection (MAID) method. The method employs the Virtusize flow cytometric system which measures multiple analytes [...] analytical performance characteristics have been determined by [employer]. It has not been cleared or approved by FDA. This assay has been validated pursuant to the CLIA regulations and used for clinical purposes. For additional information, please refer to http://education.Solasta.Zuppler/faq/KFN350 (This link is being provided for informational/ educational purposes only.) Performed By: #### 1 [id number] #### [facility] Default [address] [place] [address] SEROTYPE 8 (8) 9.[address] [facility] Search And Rescue Officer Comment on above: Order Comment: Quest Testing performed at: [facility], [employer] [facility],, [address] [place], [address], Drafting Layout Worker: nAgela Feng MD,PhD,MANOHAR Quest Collection Date/Time: [id number] Quest Results Received Date/Time: [facility] Reported Date/Time: FASTING: NO Performed By: #### 1 [id number] #### [facility] Default [address] [place] [address] SEROTYPE 9 (9N) 2.8 Normal [facility] Search And Rescue Officer Comment on above: Order Comment: [facility] Testing performed at: , [employer] [facility],, [address] [place], [address], Drafting Layout Worker: Angela Feng MD,PhD,MANOHAR Quest Collection Date/Time: [id number] Quest Results Received Date/Time: Quest Reported Date/Time: FASTING: NO Performed By: #### 1 [id number] #### [facility] Default [address] [place] [address] Office Visit (Pediatric Neur ology)on 05-30-2021 Follow-up [...] updates. My nurse is Yolanda Calvillo at [phone]. 8. 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 She has also been diagnosed IGA deficiency, [...] Vitals V (more content not included)... Normal [facility] CHEMISTRYOrdered By: SYSTEM SYSTEM on 05-17-2021 Anion gap [Moles/Vol] 11 mmol/L Normal 6 - 16 mEq/L [facility] Remisol Calcium [Mass/Vol] 9.3 mg/dL Normal 8.9 - 11. 1 mg/dL [facility] Remisol Chloride [Moles/Vol] 103 mmol/L Normal 101 - 1 11 mmol/L [facility] Remisol CO2 [Moles/Vol] 27 mmol/L Normal 21 - 31 mmol/L [facility] Remisol Creatinine [Mass/Vol] 0.8 mg/dL Normal 0.5 - 1.3 mg/dL [facility] Remisol GFR/1.73 sq M.predicted among blacks MDRD (S/P/Bld) [Vol rate/Area] mL/min/1.73 m2 Normal >=59mL/min/ 1.73 m2 [facility] Chem S GFR/1.73 sq M.predicted among non-blacks MDRD (S/P/Bld) [Vol rate/Area] mL/min/1.73 m2 Normal >=59mL/min/ 1.73 m2 [facility] Chem S Glucose [Mass/Vol] 152 mg/dL Normal [...] PM) Normal Negative [facility] UA Auto SS [place].plasma/[place]. RBC (Bld) [Mass ratio] >75 /HPF Invalid [...] [facility] UA Auto SS Urobilinogen Qn (U) [id number] {Deny'U}/dL Normal 0.0 - 1.0 EU/dL [facility] UA Auto SS WBC Auto Ql (U) Negative (05/17/21 9:31 PM) Normal Negative [facility] UA Auto SS WBC LM.HPF (Urine sed) [#/Area] 0-5 /HPF Normal 0-5/HPF [facility] UA Auto SS Q - Diptheria/Tetanus Abon 0 04-13-2021 DIPHTHERIA ANTITOXOID 0.59 IU/mL Normal [facility] Officer Comment on above: Order Comment: Quest Testing performed at: [employer] [facility], [address], [place], [place], , Drafting Layout Worker: Gurmeet Rabago M.D.,PhD Quest Collection Date/Time: Quest [...] analytical performance characteristics have been determined by [employer] [place], [place]. It has not been cleared or approved by the U.S. Food and Drug Administration. This assay has been validated pursuant to the CLIA regulations and is used for clinical purposes. Performed By: #### 1 [id number], 63263Y, 18966X, 19437E, 26697W, 05479Y, 90198 #### [facility] Default [address] [place] [address] TETANUS ANTITOXOID 0.71 IU/mL Normal [facility] [facility] [place] [facility] Rescue Officer Comment on above: Order Comment: Quest Testing performed at: [employer] [facility], [address], [place], [place], , Drafting Layout Worker: Gurmeet Rabago M.D.,PhD Quest Collection Date/Time: Quest [...] analytical performance characteristics have been determined by [employer] [facility], [place], [place]. It has not been cleared or approved by the U.S. Food and Drug Administration. This assay has been validated pursuant to the CLIA regulations and is used for clinical purposes. Performed By: #### 1 [id number], 07785W, 48760I, 91586F, 16952K, 20034I, 39974 #### [facility] Default [address] [place] [address] Q - HIV AB, HIV 1/2, EIAon 0 04-13-2021 HIV AG/AB, 4TH GEN Non-Reactive Normal NON-REACT IV E [facility] [place] Comment on above: Order Comment: Quest Testing performed at: Q, [employer] [facility], [address] [place] [address], [address] [place] [address], [address], Drafting Layout Worker: David Mancilla MD Quest Collection Date/Time: Quest [...] purpose. For additional information please refer to http://education.Solasta.Zuppler/faq/UEP464 (This link is being provided for informational/ educational purposes only.) The performance of this assay has not been clinically validated in patients less than 2 years old. Performed By: #### 1 [id number], 36514K, 31282L, 15430U, 10481P, 72878B, 04441 #### [facility] Default [address] [place] [address] Q - IGA,SERUMon 04-13-2021 IMMUNOGLOBULIN A 58 mg/dL Normal 47-310 [facility] Specialist Comment on above: Order Comment: Quest Testing performed at: [employer], [employer] [facility], [address] , [address] [place] [address], [address] [place] [address], Drafting Layout Worker: David Mancilla MD Quest Collection Date/Time: Quest Results Received Date/Time: [facility] Reported Date/Time: Performed By: #### 1 [id number], 86178J, 93133O, 29869Z, 38279M, 12193L, 10526 #### [facility] Default [address] [place] [address] Q - IGE,SERUMon 04-13-2021 IMMUNOGLOBULIN E 7 kU/L Normal [facility] Specialist Comment on above: Order Comment: Quest Testing performed at: [employer], [employer] [facility], [address] , [address] [place] [address], [address] [place] [address], Drafting Layout Worker: David Mancilla MD Quest Collection Date/Time: Quest Results Received Date/Time: [facility] Reported Date/Time: Performed By: #### 1 [id number], 76347F, 14057J, 12816D, 93175A, 87479O, 71247 #### [facility] Default [address] [place] [address] Q - IGG,SERUMon 04-13-2021 IMMUNOGLOBULIN G 912 mg/dL Normal 600-1640 [facility] Specialist Comment on above: Order Comment: Quest Testing performed at: [employer], [employer] [facility], [address] , [address] [place] [address], [address] [place] [address], Drafting Layout Worker: David Mancilla MD Quest Collection Date/Time: Quest Results Received Date/Time: [facility] Reported Date/Time: Performed By: #### 1 [id number], 93534D, 06133P, 45726D, 89611Q, 25162G, 93331 #### [facility] Default [address] [place] [address] Q - IGM,SERUMon 04-13-2021 IMMUNOGLOBULIN M 73 mg/dL Normal 50-300 [facility] Specialist Comment on above: Order Comment: Quest Testing performed at: Q, [employer] [facility], [address], [address] [facility], [place], [address], Drafting Layout Worker: David Mancilla MD Quest Collection Date/Time: Quest Results Received Date/Time: [facility] Reported Date/Time: Performed By: #### 1 [id number], 59544P, 48144D, 18914L, 79250I, 60221P, 71726 #### [facility] Default [address] [place] [address] Q - Strep pneumo Ab 23 serot ypeson 04-13-2021 SEROTYPE 1 (1) 0.8 Normal [facility] Comment on above: Order Comment: Quest Testing performed at: [employer] [facility],, [address] [place] [address], , Drafting Layout Worker: Angela Feng MD,PhD,MANOHAR Quest Collection Date/Time: Quest Results Received Date/Time: [facility] Reported Date/Time: Performed By: #### 1 [id number], 73238Y, 06623W, 70815C, 97903S, 55196C, 85811 #### [facility] Default [address] [place] [address] SEROTYPE 12 (12F) <0.3 Normal [facility] Comment on above: Order Comment: Quest Testing performed at: [employer] [facility],, [address] [place] [address], , Drafting Layout Worker: Angela Feng MD,PhD,MANOHAR Quest Collection Date/Time: Quest Results Received Date/Time: Quest Reported Date/Time: Performed By: #### 1 [id number], 12376M, 02020R, 68347J, 19636A, 15007Z, 76311 #### [facility] Default [address] [place] [address] SEROTYPE 14 (14) 1.1 Normal [facility] [place] Comment on above: Order Comment: Quest Testing performed at: [facility]Z, [employer] [facility],, [address] [place], [place] [address], , Drafting Layout Worker: Angela Feng MD,PhD,MANOAHR Quest Collection Date/Time: [facility] Results Received Date/Time: Quest Reported Date/Time: Performed By: #### 1 [id number], 24244S, 29527K, 46094V, 60715S, 14330T, 17073 #### [facility] Default [address] [place] [address] SEROTYPE 17 (17F) 1.9 Normal [facility] Comment on above: Order Comment: Quest Testing performed at: [facility], [employer] [facility],, [address] [place] [address], , Drafting Layout Worker: Angela Feng MD,PhD,MANOHAR Quest Collection Date/Time: [facility] Results Received Date/Time: Quest Reported Date/Time: Performed By: #### 1 [id number], 33072F, 72542Y, 96320J, 04469V, 99953W, 99620 #### [facility] Default [address] [place] [address] SEROTYPE 19 (19F) 2.3 [facility] Comment on above: Order Comment: Quest Testing performed at: EZ, [employer] [facility],, [address] [place] [address], , Drafting Layout Worker: Angela Feng MD,PhD,MANOHAR Quest Collection Date/Time: Quest Results Received Date/Time: [facility] Reported Date/Time: Performed By: #### 1 [id number], 65741T, 19125H, 55254N, 56998V, 39955J, 89638 #### [facility] Default [address] [place] [address] SEROTYPE 2 (2) <0.3 Normal [facility] Specialist Comment on above: Order Comment: Quest Testing performed at: [employer], [employer] [facility],, [address] [place] [address], , Drafting Layout Worker: Angela Feng MD,PhD,MANOHAR Quest Collection Date/Time: Quest Results Received Date/Time: [facility] Reported Date/Time: Performed By: #### 1 [id number], 18070E, 30907U, 00089I, 90436U, 49129P, 76542 #### [facility] Default [address] [place] [address] SEROTYPE 20 (20) 1.0 Normal [facility] Comment on above: Order Comment: Quest Testing performed at: [employer], [employer] [facility],, [address] [place] [address], , Drafting Layout Worker: Angela Feng MD,PhD,MANOHAR Quest Collection Date/Time: [facility] Results Received Date/Time: [facility] Reported Date/Time: Performed By: #### 1 [id number], 02785A, 59798P, 75245I, 04439C, 94697E, 28884 #### [facility] Default [address] [place] [address] SEROTYPE 22 (22F) <0.3 Normal [facility] Comment on above: Order Comment: [facility] Testing performed at: [employer], [employer] [facility],, [address] [place] [address], , Drafting Layout Worker: Angela Feng MD,PhD,MANOHAR Quest Collection Date/Time: Quest Results Received Date/Time: [facility] Reported Date/Time: Performed By: #### 1 [id number], 38534I, 18806N, 48862W, 01219A, 64407X, 35987 #### [facility] Default [address] [place] [address] SEROTYPE 23 (23F) 3.6 Normal [facility] Comment on above: Order Comment: Quest Testing performed at: , [employer] [facility],, [address] [place] [address], , Drafting Layout Worker: Angela Feng MD,PhD,MANOHAR Quest Collection Date/Time: [facility] Results Received Date/Time: [facility] Reported Date/Time: Performed By: #### 1 [id number], 95353D, 11299J, 36105F, 45345K, 49682B, 57694 #### [facility] Default [address] [place] [address] SEROTYPE 26 (6B) 4.5 [facility] Comment on above: Order Comment: Quest Testing performed at: [facility], [employer] [facility],, [address] [place] [address], , Drafting Layout Worker: Angela Feng MD,PhD,MANOHAR Quest Collection Date/Time: [facility] Results Received Date/Time: [facility] Reported Date/Time: Performed By: #### 1 [id number], 79638C, 66606C, 39060Y, 14605R, 60836F, 95642 #### [facility] Default [address] [place] [address] SEROTYPE 3 (3) 1.[address] [facility] Search And Rescue Officer Comment on above: Order Comment: Quest Testing performed at: [facility], [employer] [facility],, [address] [place], [place], , Drafting Layout Worker: Angela Feng MD,PhD,MANOHAR Quest Collection Date/Time: [facility] Results Received Date/Time: [facility] Reported Date/Time: Performed By: #### 1 [id number], 48253C, 31407E, 65134O, 77165O, 62765D, 37263 #### [facility] Default [address] [place] [address] SEROTYPE 34 (10A) 1.6 Normal [facility] Search And Rescue Officer Comment on above: Order Comment: [facility] Testing performed at: [facility], [employer] [facility],, [address] [place], [place], , Drafting Layout Worker: Angela Feng MD,PhD,MANOHAR Quest Collection Date/Time: [facility] Results Received Date/Time: [facility] Reported Date/Time: Performed By: #### 1 [id number], 00034W, 68611X, 02649C, 30839A, 33595Q, 40659 #### [facility] Default [address] [place] [address] SEROTYPE 4 (4) 0.[address] [facility] Search And Rescue Officer Comment on above: Order Comment: [facility] Testing performed at: [facility], [employer] [facility],, [address] [place], [place], , Drafting Layout Worker: Angela Feng MD,PhD,MANOHAR Quest Collection Date/Time: [facility] Results Received Date/Time: [facility] Reported Date/Time: Performed By: #### 1 [id number], 25163S, 50138K, 92584U, 62688Y, 41435U, 24752 #### [facility] Default [address] [place] [address] SEROTYPE 43 (11A) 0.9 Normal [facility] Comment on above: Order Comment: [facility] Testing performed at: [facility], [employer] [facility],, [address] [place] [address], , Drafting Layout Worker: Angela Feng MD,PhD,MANOHAR Quest Collection Date/Time: [facility] Results Received Date/Time: [facility] Reported Date/Time: Performed By: #### 1 6963X, 02247I, 68172U, 51242E, 03949R, 99041Z, 34842 #### [facility] Default [address] [place] [address] SEROTYPE 5 (5) 0.6 Normal [facility] Specialist Comment on above: Order Comment: [facility] Testing performed at: [employer], [employer] [facility],, [address] [place] [address], , Drafting Layout Worker: Angela Feng MD,PhD,MANOHAR Quest Collection Date/Time: [facility] Results Received Date/Time: [facility] Reported Date/Time: Performed By: #### 1 6963X, 32565R, 94200T, 87628B, 65723U, 57944H, 12203 #### [facility] Default [address] [place] [address] SEROTYPE 51 (7F) 0.4 Normal [facility] [place] Comment on above: Order Comment: [facility] Testing performed at: [employer], [employer] [facility],, [address] [place] [address], , Drafting Layout Worker: Angela Feng MD,PhD,MANOHAR Quest Collection Date/Time: [facility] Results Received Date/Time: [id number] Quest Reported Date/Time: Performed By: #### 1 6963X, 83829V, 09613V, 78832V, 01532U, 42537C, 91308 #### [facility] Default [address] [place] [address] SEROTYPE 54 (15B) <0.3 [facility] Comment on above: Order Comment: [facility] Testing performed at: [facility], [employer] [facility],, [address] [place] [address], , Drafting Layout Worker: Angela Feng MD,PhD,MANOHRA Quest Collection Date/Time: [facility] Results Received Date/Time: [facility] Reported Date/Time: Performed By: #### 1 6963X, 89254E, 60391B, 06216H, 70992J, 76644P, 78759 #### [facility] Default [address] [place] [address] SEROTYPE 56 (18C) 1.1 [facility] Comment on above: Order Comment: [facility] Testing performed at: [employer], [employer] [facility],, [address] [place] [address], , Drafting Layout Worker: Angela Feng MD,PhD,MANOHAR Quest Collection Date/Time: [facility] Results Received Date/Time: [facility] Reported Date/Time: Performed By: #### 1 6963X, 16235H, 37899Z, 53246T, 62605L, 96407T, 61933 #### [facility] Default [address] [place] [address] SEROTYPE 57 (19A) 0.4 [facility] Comment on above: Order Comment: [facility] Testing performed at: [employer], [employer] [facility],, [address] [place] [address], , Drafting Layout Worker: Angela Feng MD,PhD,MANOHAR Quest Collection Date/Time: [facility] Results Received Date/Time: [facility] Reported Date/Time: Performed By: #### 1 6963X, 47760K, 62996G, 92702Y, 93313S, 84279N, 25896 #### [facility] Default [address] [place] [address] SEROTYPE 68 (9V) 0.5 Normal [facility] Comment on above: Order Comment: [facility] Testing performed at: [employer], [employer],, [address] [place] [address], , Drafting Layout Worker: Angela Feng MD,PhD,MANOHAR Quest Collection Date/Time: [facility] Results Received Date/Time: Quest Reported Date/Time: Performed By: #### 1 6963X, 35254I, 88256W, 28674N, 60186A, 31148U, 60460 #### [facility] Default [address] [place] [address] SEROTYPE 70 (33F) 0.3 Normal [facility] Comment on above: Order Comment: Quest Testing performed at: [employer] [facility],, [address] [place] [address], , Drafting Layout Worker: Angela Feng MD,PhD,MANOHAR Quest Collection Date/Time: Quest [...] serotype-specific titers may have less robust responses. [employer] uses a multi-analyte immunodetection (MAID) method. The method employs the Virtusize flow cytometric system which measures multiple analytes [...] analytical performance characteristics have been determined by [employer]. It has not been cleared or approved by FDA. This assay has been validated pursuant to the CLIA regulations and used for clinical purposes. For additional information, please refer to http://education.Solasta.Zuppler/faq/IXX545 (This link is being provided for informational/ educational purposes only.) Performed By: #### 1 6963X, 88228Z, 22142P, 50908H, 23171Q, 14854B, 36063 #### [facility] Default [address] [place] [address] SEROTYPE 8 (8) 0.[address] [facility] Search And Rescue Officer Comment on above: Order Comment: [facility] Testing performed at: [facility], [employer],, [address] [place], [address], Drafting Layout Worker: Angela Feng MD,PhD,MANOHAR Quest Collection Date/Time: [facility] Results Received Date/Time: [facility] Reported Date/Time: Performed By: #### 1 6963X, 38336F, 72228E, 04828I, 39824J, 67423R, 38554 #### [facility] Default [address] [place] [address] SEROTYPE 9 (9N) <0.3 Normal [facility] Search And Rescue Officer Comment on above: Order Comment: [facility] Testing performed at: [employer], [employer] [facility],, [address] [place], [address], Drafting Layout Worker: Angela Feng MD,PhD,MANOHAR Quest Collection Date/Time: [facility] Results Received Date/Time: [facility] Reported Date/Time: Performed By: #### 1 6963X, 51340H, 92562K, 54475B, 88810R, 24105T, 56855 #### [facility] Default [address] [place] [address] Chart Updateon 04-12-2021 Chart Update Chart Update Shiv had a migraine today and was unable to attend class. Signatures Electronically signed by : Chica Whitmore, 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 COLLAR TURNER-LIFE TESTER [employer]; Apr 12 2021 3:16PM EST (Author) Normal [facility] COVID + FLU Quick Testingon 04-04-2021 SARS-CoV-2 (COVID-19) RNA PAMELA+probe Ql (Unsp spec) Negative [facility] Other COVID + FLU Quick Testing Negative [facility] Other Office Visit (Pediatric Neur ology)on 03-22-2021 Follow-up visit Diagnoses/Problems Migraine (346.90) (G43.909) Anxiety (300.00) (F41.9) Orders Migraine Start: Verapamil HCl - 40 MG Oral Tablet; TAKE 1 TABLET 3 times daily MRI Brain without Contrast; Status:Hold For - Scheduling; Requested for:[id number]; Does patient have exposure to metal fragments? : N Radiologist to Determine Optimal Study : Y Requesting physician's phone/pager number? : [phone] Does the patient have a Cochlear Implant, Pacemaker, Defibrilator, Pacing Wire, Brain Aneurysm Clip, Implanted Nerve or Bone Graft Simulator, Implanted Breast Tissue Tai Chi Instructor, Glucose Monitor, or Neulasta Device? : No [...] updates. My nurse is Yolanda Calvillo at [phone]. 8. Follow up in 2-3 months with [...] at headach (more content not included)... Normal [employer] XR Abdomen Single View (KUB) *on 03-08-2021 XR Abdomen Single View (KUB)* HISTORY: Nausea and generalized abdominal pain. Chronic constipation. COMPARISON: CT 11/12/2019 RESULT: Nonspecific nondilated bowel gas pattern. Feces throughout the colon. No abnormal calcifications. No acute osseous findings. Lung bases unremarkable. No other significant abnormality. IMPRESSION: No acute radiographic findings. Report reported and signed by Butch Sanchez on 03/08/2021 194 Normal [facility] Search And Rescue Officer COVID Quick Testingon 2021 Result Negative [facility] Other COVID Quick Testingon 2020 Result Negative [facility] Other COVID Quick Testingon 2020 Result Negative [facility] Other Quick Strepon 11-19-2020 S. pyogenes Org specific cx Ql (Throat) Negative [facility] Other Quick Strep [facility] Other CNTHERAPYon 11-13-2020 CNTHERAPY OT[facility] SHIV EVANGELISTA ([id number]) 2 F Date Time Provider Department 11/13/20 10:45 AM LYNN POTTS Date Time Provider Department Center 11/13/2020 10:45 AM [id number] POTTS PTAGauri [facility] Reason for Visit: Physical Therapy [503] [...] Take 2 tablets by mouth twice daily. [facility] CNTHERAPYon 11-09-2020 CNTHERAPY OT/PT/Speech Visit ([facility]) SHIV EVANGELISTA ([id number]) 2 F Date Time Provider Department 11/09/20 11:30 AM ALEXANDRA SUAREZ [facility] Date Time Provider Department Center 11/09/2020 11:30 AM [id number], NICOLE [facility] Reason for Visit: PT [...] 4 hours as needed. - JUNEL FE , 28, 1.5 mg-30 mcg (21)/75 mg (7) tablet Take 1 tablet by mouth once daily. - lamoTRIgine ER (LAMICTAL XR) 50 mg 24 hr tablet Take 2 tablets by mouth twice daily. Progress Notes: Alexandra Suarez PT 11/09/2020 2:30 PM Signed Episode Visit [...] Planned: 8 Planned Treatment Interventions: Therapeutic exercise (31494);Neuromuscula r re-education (33014);Manual therapy (68655);Therapeutic activities (57073);Self-chcf management (73866);Patient/Fami ly/Caregiver Education;Biofeedbac k Pelvic (04099,27187) PLAN FOR NEXT VISIT: toileting positions, colon [...] Family Intake Information: Prescription present Previous Treatment: Chicken Catcher (more content not included)... Normal [facility] Office Visit (Pediatric Neur ology)on [...] followin. Schedule a biofeedback session with Ramona Rice CNP 2. Restart Prozac 10 mg then 20 mg at bed. Note effect on anxiety. 3. Look into counseling options through the school. 4. Continue to use Ativan for panic attacks. 5. Continue with the Ajovy for migraine management 6. Can use cocktail to break headache once they occur. 7. Call with updates. My nurse is Yolanda Calvillo at [phone]. 8. Follow up in 2-3 months with updates in the interim. Chief Complaint Follow up POTS Accompanied by mother. History of Present Illness Shiv is a 20 year old young woman with POTS, anxiety and headaches. She is taking 2 summer courses. [facility] [employer] and is taking her courses through [employer] [facility]. She stopped all her meds because [...] holidays as well. She still works at [employer]. She denies any thoughts about hurting herself [...] MG Oral Tablet Vitals Vital Signs Recorded: [id number] 01:02PM Rmpbic298 lb 7.31 oz 2-20 Weight Pccvnrpkel19 % Physical Exam Constitutional - Well dressed, [...] bilaterally. Fundoscopi (more content not included)... Normal [facility] Adulton 1 Psychiatry Adult No report was sent Normal [facility] Provider Orderson 01-17-2020 Provider Orders [id number] [facility] Vital Signs Date Time Vital Sign Value Performing Clinician Facility 04-08-2024 15:36-0500 Body mass index (BMI) [Ratio] 28.37 kg/m2 Linda MITCHELL Work Phone: [facility] 04-08-2024 15:36-0500 Body weight 70.36 kg Linda MITCHELL Work Phone: [facility] 04-08-2024 15:36-0500 Diastolic blood pressure 68 mm[Hg] Linda MITCHELL Work Phone: [facility] 04-08-2024 15:36-0500 Systolic blood pressure 126 mm[Hg] Linda MITCHELL Work Phone: [facility] 03-25-2024 16:03-0500 Body mass index (BMI) [Ratio] 28.17 kg/m2 Linda Yesica PAULA Work Phone: [facility] 03-25-2024 16:03-0500 Body weight 69.85 kg Linda Robert PA Work Phone: [facility] 03-25-2024 16:03-0500 Diastolic blood pressure 68 mm[Hg] Linda Toledoey PA Work Phone: [facility] 03-25-2024 16:03-0500 Systolic blood pressure 116 mm[Hg] Linda Robert PA Work Phone: [facility] 03-25-2024 10:13-0500 Diastolic blood pressure 67 mm[Hg] Ok Goodenk DO Work Phone: [facility] 03-25-2024 10:13-0500 Heart rate 83 /min Ok Giacomok DO Work Phone: [facility] 03-25-2024 10:13-0500 Respiratory rate 18 /min Ok Charlesmaritzak DO Work Phone: [facility] 03-25-2024 10:13-0500 SaO2% (BldA) [Mass fraction] 96 % Ok Charlesmaritzak DO Work Phone: [facility] 03-25-2024 10:13-0500 Systolic blood pressure 118 mm[Hg] Ok Giacomok DO Work Phone: [facility] 03-25-2024 08:39-0500 Body height 157.48 cm Ok Charlesmaritzak DO Work Phone: [facility] 03-25-2024 08:39-0500 Body temperature 98.2 [degF] Ok Giacomok DO Work Phone: [facility] 03-25-2024 08:39-0500 Body weight 70 kg Ok Giacomok DO Work Phone: [facility] 03-25-2024 08:39-0500 Diastolic blood pressure 58 mm[Hg] Ok Giacomok DO Work Phone: [facility] 03-25-2024 08:39-0500 Heart rate 80 /min Ok Tyson DO Work Phone: [facility] 03-25-2024 08:39-0500 Respiratory rate 16 /min Ok Tyson DO Work Phone: [facility] 03-25-2024 08:39-0500 SaO2% (BldA) [Mass fraction] 98 % Ok Tyson DO Work Phone: [facility] 03-25-2024 08:39-0500 Systolic blood pressure 122 mm[Hg] Ok Tyson DO Work Phone: [facility] 03-11-2024 10:34-0500 Body mass index (BMI) [Ratio] 27.33 kg/m2 Navid Alondra DO Work Phone: [facility] 03-11-2024 10:34-0500 Body weight 67.77 kg Navid Alondra DO Work Phone: [facility] 03-11-2024 10:34-0500 Diastolic blood pressure 68 mm[Hg] Navid Alondra DO Work Phone: [facility] 03-11-2024 10:34-0500 Systolic blood pressure 122 mm[Hg] Navid Alondra DO Work Phone: [facility] 02-25-2024 15:37-0500 Body mass index (BMI) [Ratio] 27.09 kg/m2 Navid Alondra DO Work Phone: [facility] 02-25-2024 15:37-0500 Body weight 67.19 kg Navid Alondra DO Work Phone: [facility] 02-25-2024 15:37-0500 Diastolic blood pressure 66 mm[Hg] Navid Alondra DO Work Phone: [facility] 02-25-2024 15:37-0500 Systolic blood pressure 114 mm[Hg] Navid Alondra DO Work Phone: [facility] 02-09-2024 16:38-0500 Diastolic blood pressure 60 mm[Hg] Rahel Didion FOOT GATHERER Work Phone: [facility] 02-09-2024 16:38-0500 Heart rate 78 /min Rahel Didion FOOT GATHERER Work Phone: [facility] 02-09-2024 16:38-0500 Respiratory rate 16 /min Rahel Didion FOOT GATHERER Work Phone: [facility] 02-09-2024 16:38-0500 SaO2% (BldA) [Mass fraction] 98 % Rahel Didion FOOT GATHERER Work Phone: [facility] 02-09-2024 16:38-0500 Systolic blood pressure 118 mm[Hg] Rahel Didion FOOT GATHERER Work Phone: [facility] 01-22-2024 16:40-0500 Body mass index (BMI) [Ratio] 26.48 kg/m2 Linda La Mesa PA Work Phone: [facility] 01-22-2024 16:40-0500 Body weight 65.68 kg Linda Yesica PA Work Phone: [facility] 01-22-2024 16:40-0500 Diastolic blood pressure 60 mm[Hg] Linda La Mesa PA Work Phone: [facility] 01-22-2024 16:40-0500 Systolic blood pressure 118 mm[Hg] Linda La Mesa PA Work Phone: [facility] 01-12-2024 15:14-0500 Body height 157.5 cm Ok Goodenk DO Work Phone: [facility] 01-12-2024 15:14-0500 Body mass index (BMI) [Ratio] 25.61 kg/m2 Ok Goodenk DO Work Phone: [facility] 01-12-2024 15:14-0500 Body weight 63.5 kg Ok Goodenk DO Work Phone: [facility] 01-12-2024 15:14-0500 Diastolic blood pressure 60 mm[Hg] Ok Tyson DO Work Phone: [facility] 01-12-2024 15:14-0500 Heart rate 87 /min Ok Tyson DO Work Phone: [facility] 01-12-2024 15:14-0500 SaO2% (BldA) [Mass fraction] 99 % Ok Tyson DO Work Phone: [facility] 01-12-2024 15:14-0500 Systolic blood pressure 114 mm[Hg] Ok Tyson DO Work Phone: [facility] 01-02-2024 17:15-0500 Body mass index (BMI) [Ratio] 25.24 kg/m2 Yaritza Gonzalez FOOT GATHERER Work Phone: [facility] 01-02-2024 17:15-0500 Body temperature 98.01 [degF] Yaritza Gonzalez FOOT GATHERER Work Phone: [facility] 01-02-2024 17:15-0500 Body weight 62.6 kg Yaritza Gonzalez FOOT GATHERER Work Phone: [facility] 01-02-2024 17:15-0500 Heart rate 100 /min Yaritza Gonzalez FOOT GATHERER Work Phone: [facility] 01-02-2024 17:15-0500 SaO2% (BldA) [Mass fraction] 99 % Yaritza Gonzalez FOOT GATHERER Work Phone: [facility] 12-24-2023 15:56-0500 Body mass index (BMI) [Ratio] 25.13 kg/m2 Navid Alondra DO Work Phone: [facility] 12-24-2023 15:56-0500 Body weight 62.32 kg Navid Alondra DO Work Phone: [facility] 12-24-2023 15:56-0500 Diastolic blood pressure 74 mm[Hg] Navid Alondra DO Work Phone: [facility] 12-24-2023 15:56-0500 Systolic blood pressure 116 mm[Hg] Navid Alondra DO Work Phone: [facility] 12-24-2023 13:55-0500 Body mass index (BMI) [Ratio] 25.28 kg/m2 Suzan Darnell FOOT GATHERER Work Phone: [facility] 12-24-2023 13:55-0500 Body temperature 98.71 [degF] Suzan Patrick FOOT GATHERER Work Phone: [facility] 12-24-2023 13:55-0500 Body weight 62.7 kg Suzan Darnell FOOT GATHERER Work Phone: [facility] 12-24-2023 13:55-0500 Diastolic blood pressure 62 mm[Hg] Suzandavid Patrick FOOT GATHERER Work Phone: [facility] 12-24-2023 13:55-0500 Heart rate 96 /min Suzan Patrick FOOT GATHERER Work Phone: [facility] 12-24-2023 13:55-0500 SaO2% (BldA) [Mass fraction] 97 % Suzan Darnell FOOT GATHERER Work Phone: [facility] 12-24-2023 13:55-0500 Systolic blood pressure 118 mm[Hg] Suzan Darnell FOOT GATHERER Work Phone: [facility] 11-25-2023 14:49-0400 Body mass index (BMI) [Ratio] 25.15 kg/m2 Navid Alondra DO Work Phone: [facility] 11-25-2023 14:49-0400 Body weight 62.37 kg Navid Alondra DO Work Phone: [facility] 11-25-2023 14:49-0400 Diastolic blood pressure 68 mm[Hg] Navid Alondra DO Work Phone: [facility] 11-25-2023 14:49-0400 Systolic blood pressure 118 mm[Hg] Navid Alondra DO Work Phone: [facility] 10-23-2023 15:19-0400 Body mass index (BMI) [Ratio] 24.4 kg/m2 [facility] Nurse [facility] 10-23-2023 15:19-0400 Body weight 60.51 kg Nom Nurse [facility] 10-23-2023 15:19-0400 Diastolic blood pressure 70 mm[Hg] [facility] Nurse [facility] 10-23-2023 15:19-0400 Systolic blood pressure 120 mm[Hg] [facility] Nurse [facility] 07-04-2023 10:15-0400 Body height 157.48 cm DO Ok Charleschak Work Phone: [facility] 07-04-2023 10:15-0400 Body mass index (BMI) [Ratio] 23.8 kg/m2 DO Ok Vaschak Work Phone: [facility] 07-04-2023 10:15-0400 Body weight 58.96 kg DO Ok Charleschak Work Phone: [facility] 07-04-2023 10:15-0400 Diastolic blood pressure 70 mm[Hg] DO Ok Vaschak Work Phone: [facility] 07-04-2023 10:15-0400 Heart rate 72 /min DO Ok Charleschak Work Phone: [facility] 07-04-2023 10:15-0400 Respiratory rate 18 /min DO Ok Charleschak Work Phone: [facility] 07-04-2023 10:15-0400 SaO2% (BldA) [Mass fraction] 98 % DO Ok Vaschak Work Phone: [facility] 07-04-2023 10:15-0400 Systolic blood pressure 124 mm[Hg] DO Ok Vaschak Work Phone: [facility] 09-20-2022 08:00-0400 Body temperature 97.9 [degF] DO Ok Vaschak Work Phone: [facility] 09-20-2022 08:00-0400 Diastolic blood pressure 74 mm[Hg] DO Ok Vaschak Work Phone: [facility] 09-20-2022 08:00-0400 Heart rate 73 /min DO Ok Vaschak Work Phone: [facility] 09-20-2022 08:00-0400 Respiratory rate 18 /min DO Ok Vaschak Work Phone: [facility] 09-20-2022 08:00-0400 SaO2% (BldA) [Mass fraction] 98 % DO Ok Vaschak Work Phone: [facility] 09-20-2022 08:00-0400 Systolic blood pressure 118 mm[Hg] DO Ok Vaschak Work Phone: [facility] 09-18-2022 08:29-0400 Body height 157.48 cm DO Ok Vaschak Work Phone: [facility] 09-18-2022 08:29-0400 Body weight 72.57 kg DO Ok Vaschak Work Phone: [facility] 08-10-2022 17:06-0400 Diastolic blood pressure 78 mm[Hg] DO Ok Vaschak Work Phone: [facility] 08-10-2022 17:06-0400 Heart rate 105 /min DO Ok Charleschak Work Phone: [facility] 08-10-2022 17:06-0400 Systolic blood pressure 133 mm[Hg] DO Ok Vaschak Work Phone: [facility] 08-10-2022 17:00-0400 Respiratory rate 16 /min DO Ok Vaschak Work Phone: [facility] 08-10-2022 16:38-0400 SaO2% (BldA) [Mass fraction] 98 % DO Ok Vaschak Work Phone: [facility] 11-25-2021 23:45-0400 Diastolic blood pressure 71 mm[Hg] Rayray Aquino [facility] 11-25-2021 23:45-0400 Heart rate 77 /min Rayray Kenia [facility] 11-25-2021 23:45-0400 Hourly Rounding Rayray Kenia [facility] 11-25-2021 23:45-0400 Respiratory rate 18 /min Rayray Kenia [facility] 11-25-2021 23:45-0400 SaO2% (BldA) [Mass fraction] 100 % Rayray Kenia [facility] 11-25-2021 23:45-0400 Systolic blood pressure 105 mm[Hg] Rayray Kenia [facility] 11-25-2021 22:00-0400 Diastolic blood pressure 83 mm[Hg] Rayray Kenia [facility] 11-25-2021 22:00-0400 Heart rate 69 /min Rayray Kenia [facility] 11-25-2021 22:00-0400 Hourly Rounding Rayray Kenia [facility] 11-25-2021 22:00-0400 Respiratory rate 14 /min Rayray Kenia [facility] 11-25-2021 22:00-0400 Systolic blood pressure 123 mm[Hg] Rayray Kenia [facility] 11-25-2021 19:00-0400 Body temperature 98.42 [degF] Rayray Kenia [facility] 11-25-2021 19:00-0400 Diastolic blood pressure 81 mm[Hg] Rayray Kenia [facility] 11-25-2021 19:00-0400 Heart rate 79 /min Rayray Kenia [facility] 11-25-2021 19:00-0400 Hourly Rounding Rayray Kenia [facility] 11-25-2021 19:00-0400 Respiratory rate 12 /min Rayray Kenia [facility] 05-30-2021 12:44-0400 Body height 160 cm Terence Pyle Work Phone: BW-Opwyobpeq-Emnwjfq y H DO Work Phone: 05-30-2021 12:44-0400 Body mass index (BMI) [Ratio] 19.65 kg/m2 Terence Pyle Work Phone: EN-Kfzgcnblr-Tyhxznl y H DO Work Phone: 05-30-2021 12:44-0400 Body surface area Derived from formula 1.5 m2 Terence Pyle Work Phone: CL-Kvgcsgbjp-Qojucrw y H DO Work Phone: 05-30-2021 12:44-0400 Body temperature 98.5 [degF] Terence Pyle Work Phone: XH-Uqjtdlpdu-Suvfddd y H DO Work Phone: 05-30-2021 12:44-0400 Body weight 50.3 kg Terence Pyle Work Phone: LR-Qantvvjax-Hvqudoa y H DO Work Phone: 05-30-2021 12:44-0400 Diastolic blood pressure 74 mm[Hg] Terence Pyle Work Phone: VT-Nywoivese-Grzinzc y H DO Work Phone: 05-30-2021 12:44-0400 Heart rate 74 /min Terence Pyle Work Phone: DP-Hhtttxhtp-Ydvjqwh y H DO Work Phone: 05-30-2021 12:44-0400 Systolic blood pressure 120 mm[Hg] Terence Hess Pyle Work Phone: RR-Vhogtvozu-Akufkiw y H DO Work Phone: 05-17-2021 23:00-0400 Diastolic blood pressure 61 mm[Hg] [facility] 05-17-2021 23:00-0400 Heart rate 81 /min [facility] 05-17-2021 23:00-0400 SaO2% (BldA) [Mass fraction] 97 % [facility] 05-17-2021 23:00-0400 Systolic blood pressure 106 mm[Hg] [facility] 05-17-2021 20:48-0400 Body temperature 98.6 [degF] [facility] 05-17-2021 20:48-0400 Diastolic blood pressure 83 mm[Hg] [facility] 05-17-2021 20:48-0400 Heart rate 97 /min [facility] 05-17-2021 20:48-0400 Respiratory rate 16 /min [facility] 05-17-2021 20:48-0400 SaO2% (BldA) [Mass fraction] 98 % [facility] 05-17-2021 20:48-0400 Systolic blood pressure 128 mm[Hg] [facility] 04-04-2021 14:45-0500 Body height 157.48 cm Albert White Other [facility] Other 04-04-2021 14:45-0500 Body mass index (BMI) [Ratio] 20.3 kg/m2 Albert White Other [facility] Other 04-04-2021 14:45-0500 Body temperature 100 [degF] Albert White Other [facility] Other 04-04-2021 14:45-0500 Body weight 50.35 kg Albert White Other [facility] Other 04-04-2021 14:45-0500 Respiratory rate 16 /min Albert White Other [facility] Other 04-04-2021 14:45-0500 SaO2% (BldA) [Mass fraction] 99 % Albert White Other [facility] Other 2021 10:00-0500 Body height 157.48 cm Pankaj Berger Other [facility] Other 2021 10:00-0500 Body mass index (BMI) [Ratio] 20.3 kg/m2 Pankaj Berger Other [facility] Other 2021 10:00-0500 Body weight 50.35 kg Pankaj Ab Other [facility] Other 2021 10:00-0500 Diastolic blood pressure 67 mm[Hg] Pankaj Berger Other [facility] Other 2021 10:00-0500 Systolic blood pressure 108 mm[Hg] Pankaj Berger Other [facility] Other 12-13-2020 13:10-0400 Body height 157.48 cm Chacho Domingo Other [facility] Other 12-13-2020 13:10-0400 Body mass index (BMI) [Ratio] 21.03 kg/m2 Chacho Domingo Other [facility] Other 12-13-2020 13:10-0400 Body temperature 98.4 [degF] Chacho Domingo Other [facility] Other 12-13-2020 13:10-0400 Body weight 52.16 kg Chacho Domingo Other [facility] Other 12-13-2020 13:10-0400 Diastolic blood pressure 81 mm[Hg] Chacho Domingo Other [facility] Other 12-13-2020 13:10-0400 SaO2% (BldA) [Mass fraction] 100 % Chacho Domingo Other [facility] Other 12-13-2020 13:10-0400 Systolic blood pressure 127 mm[Hg] Chacho Domingo Other [facility] Other 11-19-2020 13:15-0400 Body height 157.48 cm Albert White Other [facility] Other 11-19-2020 13:15-0400 Body mass index (BMI) [Ratio] 20.12 kg/m2 Albert White Other [facility] Other 11-19-2020 13:15-0400 Body temperature 98.9 [degF] Albert White Other [facility] Other 11-19-2020 13:15-0400 Body weight 49.9 kg Albert White Other [facility] Other 11-19-2020 13:15-0400 Diastolic blood pressure 91 mm[Hg] Albert White Other [facility] Other 11-19-2020 13:15-0400 SaO2% (BldA) [Mass fraction] 100 % Albert White Other [facility] Other 11-19-2020 13:15-0400 Systolic blood pressure 149 mm[Hg] Albert White Other [facility] Other 11-06-2020 15:00-0400 Body weight 51.26 kg Pankaj Berger Other [facility] Other 08-30-2020 13:02-0400 Body weight 56 kg Terence Pyle Work Phone: LW-Nsrrhwqiap-Cpssqs nds Work Phone: 08-30-2020 13:02-0400 42 1 Terence Pyle Work Phone: EQ-Cpejhhsdsu-Sygtpl nds Work Phone: Comment on above: -20_WPerc 11-05-2019 12:33-0400 BMI (Body Mass Index) 22.76 kg/m2 Chica Haim YU-Kbfzpgotez-Ypbvyl ogy-Admin RBC 585 Work Phone: 11-05-2019 12:33-0400 Body weight 56.81 kg Chica Haim DG-Jbgvsnjcpc-Q eurol ogy-Admin RBC 585 Work Phone: 11-05-2019 12:33-0400 BP Diastolic 77 mm[Hg] Chica Haim WR-Oxkntrlgtm-Q eurol ogy-Admin RBC 585 Work Phone: 11-05-2019 12:33-0400 BP Systolic 127 mm[Hg] Chica Haim AS-Irftxmuxir-V eurol ogy-Admin RBC 585 Work Phone: 11-05-2019 12:33-0400 BSA (Body Surface Area) 1.57 m2 Chica Haim TO-Zeiohatldx-Jvmvkd ogy-Admin RBC 585 Work Phone: 11-05-2019 12:33-0400 Height 158 cm Chica Haim NP-Wxmycmpmaq-I eurol ogy-Admin RBC 585 Work Phone: 11-05-2019 12:33-0400 21 1 Chica Haim II-Roosktknfx-B eurol ogy-Admin RBC 585 Work Phone: Comment on above: 2-20 Stature Percentile 11-05-2019 12:33-0400 49 1 Chica Haim BI-Uuqojoxgwj-K eurol ogy-Admin RBC 585 Work Phone: Comment on above: 2-20 Weight Percentile 11-05-2019 12:33-0400 64 1 Chica Haim DZ-Ieigwvcmzp-J eurol ogy-Admin RBC 585 Work Phone: Comment on above: BMI Percentile 08-25-2019 12:37-0400 BMI (Body Mass Index) 22.79 kg/m2 Chica Haim EX-Ehitdxgxlp-Wszclm og-Admin RBC 585 Work Phone: 08-25-2019 12:37-0400 Body weight 56.9 kg Chica Haim DY-Tnshqlzymj-W eurol og-Admin RBC 585 Work Phone: 08-25-2019 12:37-0400 BP Diastolic 76 mm[Hg] Chica Haim VI-Ixsgdgvanf-P eurol og-Admin RBC 585 Work Phone: 08-25-2019 12:37-0400 BP Systolic 126 mm[Hg] Chica Haim PN-Lfryuemyoe-G eurol og-Admin RBC 585 Work Phone: 08-25-2019 12:37-0400 BSA (Body Surface Area) 1.57 m2 Chica Haim GG-Pbenmddbsb-Fsggpg og-Admin RBC 585 Work Phone: 08-25-2019 12:37-0400 Height 158 cm Chica Haim BB-Jrczefeyqi-B eurol og-Admin RBC 585 Work Phone: 08-25-2019 12:37-0400 21 1 Chica Whitmore KD-Qbvmllxyhh-U eurol og-Admin RBC 585 Work Phone: Comment on above: 2-20 Stature Percentile 08-25-2019 12:37-0400 51 1 Chica Finkwell ZW-Jjhltcpqwf-K eurol og-Admin RBC 585 Work Phone: Comment on above: 2-20 Weight Percentile 08-25-2019 12:37-0400 65 1 Chica Finkwell VU-Usuxrapnfa-Z eurol og-Admin RBC 585 Work Phone: Comment on above: BMI Percentile Encounters Encounter Date Encounter Type Care Provider Facility Start: 04-08-2024 End: 04-08-2024 Office outpatient visit 15 minutes Linda MITCHELL Work Phone: [facility] Comment on above: Third trimester preg talib; 32 weeks gestation of Start: 04-08-2024 End: 04-08-2024 ambulatory LINDA ROBERT Not Available Start: 03-25-2024 End: 03-25-2024 ambulatory LINDA ROBERT Not Available Start: 03-25-2024 End: 03-25-2024 Office outpatient visit 15 minutes Linda MITCHELL Work Phone: [facility] Comment on above: Third trimester preg talib; 30 weeks gestation of Start: 03-25-2024 End: 03-25-2024 Bamboo flowsheet Linda MITCHELL Work Phone: [facility] Start: 03-25-2024 End: 03-25-2024 Bamboo flowsheet Linda MITCHELL Work Phone: [facility] Start: 03-25-2024 End: 03-25-2024 Patient encounter procedure Ok Tyson DO Work Phone: [facility] Labor [facility] Delivery Work Phone: Start: 03-25-2024 End: 03-25-2024 ambulatory Ok Tyson DO Work Phone: [facility] Work Phone: Start: 03-25-2024 End: 03-25-2024 Emergency department patient visit Ok Tyson DO Work Phone: [facility]Emergency Room Work Phone: Start: 03-11-2024 End: 03-11-2024 Office outpatient visit 15 minutes Navid Alondra DO Work Phone: [facility] Comment on above: 28 weeks gestation o f ; Third trimester ; Gestational diabetes mellitus (GDM), antepartum, gestational diabetes method of control unspecified Start: 03-11-2024 End: 03-11-2024 ambulatory NAVID ALONDRA Not Available Start: 02-25-2024 End: 02-25-2024 Office outpatient visit [...] Clinisync Result Encounter Linda MITCHELL Work Phone: [facility] Unsolicited Start: 02-21-2024 End: 02-21-2024 Clinisync Result Encounter Linda MITCHELL Work Phone: [facility] Unsolicited Start: 02-09-2024 End: 02-09-2024 Office outpatient visit 15 minutes Rahel Molina NP Work Phone: [facility] Comment on above: Acute non-recurrent pansinusitis (Primary Dx); Fever, unspecified fever cause Start: 02-09-2024 End: 02-09-2024 ambulatory RAHEL MOLINA Not Available Start: 01-22-2024 End: 01-22-2024 Office outpatient visit 15 minutes Linda MITCHELL Work Phone: [facility] Comment on above: Second trimester pre gnancy; 21 weeks gestation of ; Diabetes mellitus screening Start: 01-22-2024 End: 01-22-2024 ambulatory LINDA ROBERT Not Available Start: 01-22-2024 End: 01-22-2024 Bamboo flowsheet Linda MITCHELL Work Phone: [facility] Start: 01-22-2024 End: 01-22-2024 Bamboo flowsheet Linda MITCHELL Work Phone: [facility] Start: 01-12-2024 End: 01-12-2024 Periodic preventive med est patient 18-39 yrs Ok Tyson DO Work Phone: [facility] Comment on above: Wellness examination (Primary Dx); Right leg pain; Celiac disease (CMS/HCC); Acquired right calf asymmetry Start: 01-12-2024 End: 01-12-2024 ambulatory OK TYSON Not Available Start: 01-12-2024 End: 01-12-2024 Patient encounter status Ok Tyson DO Work Phone: [facility] Start: 01-03-2024 End: 01-03-2024 Patient encounter procedure Ok Tyson DO Work Phone: [facility] [place] Work Phone: Start: 01-03-2024 End: 01-03-2024 ambulatory Yaritza Gonzalez Facility:[facility] Start: 01-02-2024 End: 01-02-2024 Office outpatient visit 25 minutes Yaritza Gonzalez FOOT GATHERER Work Phone: [facility] Comment on above: Pain of left calf (P rimary Dx); Swelling of calf Start: 01-02-2024 End: 01-02-2024 ambulatory YARITZA GONZALEZ Not Available Start: 12-24-2023 End: 12-24-2023 Patient encounter procedure Navid Cantu DO Work Phone: [facility] Work Phone: Start: 12-24-2023 End: 12-24-2023 Periodic preventive med est patient 18-39 yrs Navid Cantu DO Work Phone: [facility] Comment on above: Well woman [...] End: 12-26-2023 External Result Encounter Navid Cantu DO Work Phone: [facility] Unsolicited Start: 12-24-2023 End: 12-24-2023 Office outpatient visit 25 minutes Suzan Patrick FOOT GATHERER Work Phone: [facility] [...] Start: 11-25-2023 End: 11-25-2023 Bamboo flowsheet Navid Navaso DO Work Phone: [facility] Start: 11-25-2023 End: 11-25-2023 Bamboo flowsheet Navid Navaso DO Work Phone: [facility] Start: [...] 10-23-2023 Office outpatient visit 5 minutes [facility] Alondra Nurse [facility] Comment on above: GA: 8w5d Start: 08-06-2023 End: 08-06-2023 ambulatory TERENCE A VISCI Not Available Start: 07-04-2023 End: 07-04-2023 ambulatory DO Ok Charlesmaritzadrake Work Phone: [facility] Work Phone: Start: 07-04-2023 End: 07-04-2023 Patient encounter procedure DO Ok Tyson Work Phone: [facility] Work Phone: Start: 06-18-2023 End: 06-18-2023 ambulatory OK TYSON Not Available Start: 06-07-2023 Non-patient / Non-visit DO Guillermo marti Charlesmaritzadrake Work Phone: [facility] Work Phone: Start: 06-02-2023 End: 06-02-2023 ambulatory TERENCE A VISCI Not Available Start: 05-31-2023 End: 05-31-2023 Patient encounter procedure DO Ok Tyson Work Phone: [facility]Electrodiagnostics Work Phone: Start: 05-31-2023 End: 05-31-2023 ambulatory DO Ok Sotomaritzadrake Work Phone: [facility] Work Phone: Start: 05-23-2023 End: 05-23-2023 ambulatory TERENCE TOLENTINO Not Available Start: 05-14-2023 End: 05-14-2023 ambulatory RAHEL MOLINA Not Available Start: 09-23-2022 End: 09-23-2022 ambulatory DO Ok Tyson Work Phone: [facility] Work Phone: Start: 09-23-2022 End: 09-23-2022 Patient encounter procedure DO Ok Tyson Work Phone: [facility] Visit Work Phone: Start: 09-18-2022 End: 09-20-2022 Evaluation and management of inpatient DO Ok Tyson Work Phone: [facility] [place] Work Phone: Start: 09-03-2022 End: 09-03-2022 Departed Referred DO Ok Tyson Work Phone: [facility] [place] Work Phone: Start: 08-10-2022 End: 08-10-2022 ambulatory DO Ok Tyson Work Phone: [facility] Work Phone: Start: 08-10-2022 End: 08-10-2022 Patient encounter procedure DO Ok Tyson Work Phone: [facility] Labor - O/P Start: 11-25-2021 End: 11-26-2021 Emergency department patient visit Rayray Aquino [facility] Start: 11-25-2021 End: 11-25-2021 Emergency department patient visit Rayray Aquino [facility] Start: 10-09-2021 End: 10-09-2021 Patient encounter procedure DO Ok Tyson Work Phone: [facility] Start: 09-23-2021 End: 09-23-2021 ambulatory Pankaj Berger Other [facility] Other Start: 09-23-2021 Telephone encounter Pankaj Serrano [facility] Start: 09-18-2021 End: 09-18-2021 ambulatory Pankaj Berger Other [facility] Other Start: 09-18-2021 Telephone encounter Pankaj Serrano [facility] Start: 09-13-2021 End: 09-13-2021 Patient encounter procedure DO Ok Tyson Work Phone: [facility] Start: 09-03-2021 Rx Renewal Terence Eugene er Work Phone: CZ-Vmohzsafrh-Pgnjdd 220 Work Phone: Start: 08-20-2021 End: 08-20-2021 Patient encounter procedure DO Ok Tyson Work Phone: [facility]Electrodiagnostics Start: 07-03-2021 End: 07-03-2021 ambulatory Pankaj Ditty Other [facility] Other Start: 07-03-2021 Telephone encounter Pankaj Serrano [facility] Start: 06-11-2021 End: 06-11-2021 ambulatory Pankaj Janeerolan Other [facility] Other Start: 06-11-2021 Telephone encounter Pankaj Janeerolan BERTHA Serr[facility] Start: 06-02-2021 Rx Renewal Terence Eugene er Work Phone: DL-Tyujqhwlys-Zfjllrojw-Ad min RBC 585 Work Phone: Start: 05-30-2021 ambulatory Terence Pyle Facility: Start: 05-30-2021 Office outpatient vi sit 15 minutes Terence Pyle Work Phone: MF-Wsnzpjfhpc-Podsclkst-Ad min RBC 585 Work Phone: Start: 05-30-2021 Patient encounter procedure Terence Nassarler Work Phone: LA-Nwevicbik-Iewztdaz H DO Work Phone: Start: 05-17-2021 End: 05-17-2021 [facility] Start: 05-11-2021 Telephone encounter Terence Pyle Work Phone: RQ-Ulbxwxgzql-Zxwjmrvgdzm 220 Work Phone: Start: 04-27-2021 End: 04-27-2021 ambulatory Pankaj Berger Other [facility] Other Start: 04-27-2021 Telephone encounter Pankaj Serrano [facility] Start: 04-09-2021 AUDIT Terence hoffmann Work Phone: FT-Okaukzdiqo-Afptzslcrvm 220 Work Phone: Start: 04-06-2021 End: 04-06-2021 ambulatory Albert White Other [facility] Other Start: 04-06-2021 Telephone encounter Albert Byrnes [facility] Start: 04-05-2021 End: 04-05-2021 ambulatory Pankaj Berger Other [facility] Other Start: 04-05-2021 Telephone encounter Pankaj Serrano [facility] Start: 04-04-2021 End: 04-04-2021 ambulatory Albert White Other [facility] Other Start: 04-04-2021 Office outpatient vi sit 15 minutes Albert White [facility] Start: 04-03-2021 End: 04-03-2021 ambulatory Pankaj Berger Other [facility] Other Start: 04-03-2021 Telephone encounter Pankaj STONE [facility] Start: 03-30-2021 End: 03-30-2021 ambulatory Pankaj Berger Other [facility] Other Start: 03-30-2021 Telephone encounter Pankaj STONE [facility] Start: 03-26-2021 Rx Renewal Terence Eugene er Work Phone: OF-Orzsgocsnn-Zqsffbqo 1600 Work Phone: Start: 03-22-2021 ambulatory Terence Pyle Facility:[id number] Start: 03-22-2021 Office outpatient vi sit 15 minutes Terence Pyle Work Phone: CU-Qswntazzgj-Efesqxyxi-Ad min RBC 585 Work Phone: Start: 03-22-2021 Patient encounter procedure Terence Pyle Work Phone: QH-Thtouuyglx-Xtroqp 220 Work Phone: Start: 2021 End: 2021 ambulatory Pankaj Berger Other [facility] Other Start: 2021 Patient encounter procedure Pankaj Berger [facility] Start: 03-07-2021 End: 03-07-2021 ambulatory Pankaj Berger Other [facility] Other Start: 03-07-2021 Telephone encounter Pankaj STONE [facility] Start: 02-15-2021 End: 02-15-2021 ambulatory Pankaj Berger Other [facility] Other Start: 02-15-2021 Telephone encounter Pankaj STONE [facility] Start: 02-12-2021 End: 02-12-2021 ambulatory Brenda Ginty Other [facility] Other Start: 02-12-2021 Office outpatient vi sit 5 minutes Brenda Armstrong [facility] Start: 12-20-2020 End: 12-20-2020 ambulatory Pankaj Berger Other [facility] Other Start: 12-20-2020 Telephone encounter Pankaj STONE [facility] Start: 12-14-2020 (Braze Operator) Braze Operator Laura Byrnes [facility] Start: 12-14-2020 End: 12-14-2020 ambulatory Laura Day Other [facility] Other Start: 12-13-2020 End: 12-13-2020 ambulatory Chacho Domingo Other [facility] Other Start: 12-13-2020 Office outpatient vi sit 15 minutes Chacho Domingo [facility] Start: 12-11-2020 End: 12-11-2020 ambulatory Pankaj Berger Other [facility] Other Start: 12-11-2020 Telephone encounter Pankaj STONE [facility] Start: 11-28-2020 AUDIT Terence hoffmann Work Phone: ZJ-Gopuzikhmr-Yxwiruopv- min RBC 585 Work Phone: Start: 11-27-2020 Telephone encounter Pankaj STONE [facility] Start: 11-21-2020 Telephone encounter Pankaj STONE [facility] Start: 11-19-2020 Office outpatient vi sit 15 minutes Albert White [facility] Start: 11-08-2020 Telephone encounter Pankaj STONE [facility] Start: 11-06-2020 Patient encounter procedure Pankaj Berger [facility] Start: 09-27-2020 AUDIT Terence Eugene er Work Phone: BR-Gizaerjugq-Kvpkvyrpt Work Phone: Start: 08-30-2020 Office outpatient vi sit 15 minutes Terence Pyle Work Phone: SV-Fcadkbcgzg-Eauuoqcow Work Phone: Start: 08-22-2020 AUDIT Terence Nassarl er Work Phone: QM-Jyscesarim-Degslgsbe-Ad min RBC 585 Work Phone: Start: 07-19-2020 Rx Renewal Terence Nassarl er Work Phone: OM-Wsyjpnaqbq-Bqfhnsnxg-Ad min RBC 585 Work Phone: Start: 03-29-2020 Patient encounter procedure Chica Whitmore 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, COLLAR TURNER-LIFE TESTER [employer] WZ-Fvzaflhhkx-Pjcvjxew 1600 Work Phone: Start: 12-29-2019 Patient encounter procedure Chica Whitmore 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, COLLAR TURNER-LIFE TESTER [employer] CM-Xctddzucak-Jepamnex 1600 Work Phone: Start: 12-24-2019 End: 12-24-2019 Patient encounter procedure Bree (Relay Tester Helper) Aleshia Work Phone: [facility] Start: 12-24-2019 Results Only Bree (Relay Tester Helper) Aleshia Work Phone: Colorectal Surgery Start: 12-10-2019 End: 12-10-2019 Orders Only Bree (Relay Tester Helper) Aleshia Work Phone: Gastroenterology Comment on above: Constipation, unspec ified constipation type (Primary Dx) Start: 11-05-2019 Patient encounter procedure Chica Whitmore LR-Zjnykggpgl-Juipnhnwz-Ad min RBC 585 Work Phone: Start: 08-25-2019 Patient encounter procedure Chica Whitmore AN-Yadexulelf-Bimdbqaq-Adm in RBC 585 Work Phone: Start: 04-28-2019 Patient encounter procedure Chica Whitmore VY-Wuckanzhnc-Wztuslej-Adm in RBC 585 Work Phone: Start: 12-30-2018 Patient encounter procedure Chica Finkwell OT-Mqtpfufjga-Pghgeseki Work Phone: Start: 09-30-2018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
[2024-04-22 17:23] VITALS: BP 112/57; PULSE 79
== END 2024-04-22 17:45 | disposition home or self-care (01) ==
LOC: US 16:42 → FBC 16:47
PROVIDERS: PCP Internal Medicine; Visit Provider Obstetrics & Gynecology
DX: O24.414 Gestational diabetes mellitus in pregnancy, insulin controlled (principal); O24.419 Gestational diabetes mellitus in pregnancy, unspecified control
CPT/HCPCS: 76818

== ENCOUNTER 2024-04-26 18:02 | Outpatient (OUT) | payer MEDICAID, SELFPAY ==
[2024-04-26 18:07] VITALS: BP 120/70; PULSE 90
== END 2024-04-26 18:33 | disposition home or self-care (01) ==
LOC: FBCO 18:02 → FBC 18:04
PROVIDERS: PCP Internal Medicine; Visit Provider Obstetrics & Gynecology
DX: O24.419 Gestational diabetes mellitus in pregnancy, unspecified control (principal)
CPT/HCPCS: 59025

== ENCOUNTER 2024-04-29 19:59 | Outpatient (OUT) | payer MEDICAID, SELFPAY ==
--- NOTE | 2024-04-29 20:04 | US_ITS ---
[address] [address] Patient Name: SHIV ZUÑIGA MRN: [id number] date: 2000 Sex: F Assigned Patient Location: [facility] [place] [facility] [place] Accession/Order Number: [id number] Exam Date: 04/30/2024 09:50 Report Date: 04/30/2024 09:52 At the request of: MEJIA BROWN DO Procedure: US OB BPP w non-stress Biophysical profile. Reason for exam: Insulin controlled gestational diabetes. COMPARISON: Biophysical profile 04/22/2024. TECHNIQUE: Transabdominal imaging of the gravid uterus was obtained. FINDINGS: The television reporter reports a BPP of 8 out of 8. heart rate 138 bpm. RENAE 15.2 cm. US/US OB BPP w non-stress IMPRESSION: BPP 8 out of 8. Impression dictated by: Edis Burroughs Jr., D.O.04/30/2024 9:52 AM Dictation [facility] Electronically authenticated by: [id number] Date: 04/30/2024 09:52
[2024-04-29 20:29] VITALS: BP 112/52; PULSE 100
[2024-04-29 20:58] LABS: Basophils Absolute Auto 0.1 10^3/uL (0.0-0.1); Basophils Percent Auto 0.8 % (0.2-2.0); Eosinophils Absolute Auto 0.2 10^3/uL (0.0-0.7); Eosinophils Percent Auto 2.1 % (0.9-7.0); Hematocrit 31.4 % (36.0-48.0); Hemoglobin 10.7 g/dL (12.0-16.0); Immature Granulocytes Abs Auto 0.37 10^3/uL (0.00-0.03); Immature Granulocytes Pct Auto 3.7 % (0.0-0.5); Lymphocytes Absolute Auto 2.2 10^3/uL (1.2-3.8); Lymphocytes Percent Auto 21.7 % (20.5-60.0); Mean Corpuscular HGB Conc 34.1 g/dL (29.9-35.2); Mean Corpuscular Hemoglobin 30.8 pg (26.7-34.0); Mean Corpuscular Volume 90.5 fL (81.0-99.0); Mean Platelet Volume 9.7 fL (9.5-13.5); Monocytes Absolute Auto 1.2 10^3/uL (0.3-0.8); Monocytes Percent Auto 11.5 % (1.7-12.0); Neutrophils Absolute Auto 6.1 10^3/uL (1.4-6.5); Neutrophils Percent Auto 60.2 % (43.0-75.0); Platelet Count 199 10^3/uL (150-450); Red Blood Count 3.47 10^6/uL (4.20-5.40); Red Cell Distribution Width 12.5 % (11.0-15.0); White Blood Count 10.1 10^3/uL (4.0-11.0)
[2024-04-29 21:13] LABS: Alanine Aminotransferase 17 U/L (14-59); Aspartate Amino Transferase 16 U/L (15-37); Estimated GFR (African America >60 (>=60 mL/min/1.73m^2); Estimated GFR (Non-African Ame >60 (>=60 mL/min/1.73m^2); INR 0.99; Partial Thromboplastin Time 23.7 sec (22.3-36.2); Prothrombin Time 10.5 sec (9.0-11.6); Uric Acid 3.8 mg/dL (2.6-6.0)
[2024-04-29 21:40] LABS: Fibrinogen 350 mg/dL (200-400)
[2024-04-29 21:48] LABS: Creatinine Urine Random 113.42 mg/dL (20.00-300.00); Protein Creatinine Ratio Urine 0.14; Total Protein Urine Random 15.8 mg/dL (<=11.9)
--- OUTSIDE RECORDS SUMMARY | 2024-04-29 22:12 | XMS_ITS | CCD ---
Author Organization [facility] CliniSysd Care Team Providers Care Security Orderly Name Role Phone Chica Whitmore Unavailable Unavailable Terence Pyle Unavailable Unavailable Nataprawira, Avani Unavailable Unavailable Chica Whitmore Unavailable Unavailable Victor M Bustillo Unavailable Unavailable Terence Pyle Primary Care Provider Pankaj Berger Unavailable Haim SET ILLUSTRATOR-REMARKETING MANAGER, SET ILLUSTRATOR-TRANSITION ADVISORChica Unavailable Unavailable Terence Pyle Unavailable Unavailable Nataprawira, Avani Unavailable Unavailable Chica Whitmore Unavailable Unavailable Victor M Bustillo Unavailable Unavailable Terence Pyle Unavailable Unavailable Unavailable Chica Whitmore Unavailable Unavailable OK TYSON Primary Care Physician Pankaj Berger Unavailable Albert White Unavailable Chacho Domingo Unavailable Laura Day Unavailable Brenda Armstrong Unavailable DO Ok Tyson Primary Care Provider [phone] DO Ok Tyson Attending Provider Terence Pyle Primary Care Unavailabl e Self, Referral Referring Unavailable Ms. Chica Whitmore Attending UnavailTerence Munoz Primary Care Unavailemre e Ms. Chica Whitmore Attending Unavaila DO Ok Dillon Primary Care Provider DO Terence Tolentino Attending Provider DO Chica Newman Attending Provider [phone] MD Yuval Pete Admit Provider MD Yuval Pete Attending Provider [phone] MD Fernando [facility] Attending Provider [phone] Rayray Aquino Attending Unavailable VaschakDO Sanchez Primary Care Provider JOSE Molina Attending Provider MD Artur Kang Attending Provider Vasisabela TOLLIVER, Ok Munson Primary Care Provider [phone] Luis Antonio Blas DO Unavailable Ok Tyson DO Unavailable [phone] Luis Antonio Blas DO Unavailable Vasmaritzak , Ok Primary Care Provider Micheal BACK TUFTER-C, Yaritza Mast Attending Provider Tom Nunez DO Emergency Provider Yuval White MD Attending Provider Tom Nunez DO Emergency Provider Rahel Murdock Attending Unavailable DidRahel escalante Admitting Unavailable Vaschak, Ok Primary Care Unavailable Yaritza Gonzalez Attending Unavailable Yaritza Gonzalez Admitting Unavailable VaschakOk Primary Care Unavailable Giacomok, Ok Primary Care Unavailable Yuval Pete Attending Unavailable Yuval Pete Admitting Unavailable Artur Kang Attending Artur Mobley Admitting Unavai Ok Mckinney Primary Care Unavailable YESICA, LINDA Referring Unavailable NAVID CANTU Attending Unavailable YESICA, LINDA Attending Unavailable YESICA, LINDA Attending Unavailable YESICA, LINDA Attending Unavailable DIDRAHEL ESCALANTE Attending Unavailable VISCI, TERENCE Harry Attending Unavailable VISCI, TERENCE Harry Referring Unavailable VISCI, TERENCE Harry Attending Unavailable VISCI, TERENCE Harry Referring Unavailable VASOK OLIVO Attending Unavailable OK TYSON Referring Unavailable VISCI, TERENCE Harry Attending Unavailable VISCZoe, TERENCE Harry Referring Unavailable NAVID CANTU Attending Unavailable SUZAN PATRICK Attending Unavailable NAVID CANTU Attending Unavailable YARITZA GONZALEZ Attending Unavailable YARITZA GONZALEZ Referring Unavailable OK TYSON Attending Unavailable OK TYSON Referring Unavailable LINDA ROBERT Attending Unavailable RAHEL MOLINA Attending Unavailable NAVID CANTU Attending Unavailable Allergies Allergy Classification Reported Allergen(s) Allergy Type Date of Onset Reaction(s) Facility (20 sources) Wheat preparation; Translations: [wheat] Drug Allergy 08-30-2022 Abdominal Pain [facility] Medications Current Medications Medication Drug Class(es) [...] 12-13-2020 Start: 12-13-2020 take 2 puff(s) by [facility] every four hours as needed Albuterol Sulfate HFA 108 (90 Base) MCG/ACT Inhalation Aerosol Solution INHALE 2 PUFFS BY MOUTH EVERY 4 HOURS NEEDED Quantity: 7 Refills: 0 Ordered: 13-Dec-2020 DO Start : 13-Dec-2020 Active Start: 12-13-2020 take 2 puff(s) by [facility] every four hours as needed Albuterol Sulfate [...] Glucose Monitoring Suppl (D-Care Glucometer) w/Device kit (11 sources) Start: 03-08-2024 End: 03-08-2025 Blood Glucose [...] 1 kit 03/08/2024 03/08/2025 Active Continuous Glucose Semiconductor Manufacturing Technician (Dexcom G6 lpn or medical assistant) device (6 sources) Start: 04-06-2024 Continuous Glucose Semiconductor Manufacturing Technician (Dexcom G6 lpn or medical assistant) device Indications: Gestational diabetes mellitus (GDM), antepartum, gestational diabetes method of control unspecified Use as instructed 1 each 04/06/2024 Active Continuous Glucose Sensor (Dexcom G6 Sensor) misc (6 sources) Start: 04-06-2024 End: 05-06-2024 Continuous Glucose Sensor (Dexcom G6 Sensor) [place] [facility] Indications: Gestational diabetes mellitus (GDM), antepartum, gestational diabetes method of control unspecified 1 each Every 10 (ten) days 3 each 1 04/06/2024 05/06/2024 Active Continuous Glucose Transmitter (Dexcom G6 transmitter) misc (6 sources) Start: 04-06-2024 Continuous Glucose Transmitter (Dexcom G6 transmitter) [place] [facility] Indications: Gestational diabetes mellitus (GDM), antepartum, gestational [...] Quantity: 90 Refills: 1 Ordered: 13-Apr-2020 Haim SET ILLUSTRATOR-REMARKETING MANAGER, JOSE-TRANSITION ADVISORChica Start : 13-Sep-2019 Active hyoscyamine sulfate 0.125 [...] Three times a day for 30 Not-Taking 3 ml insulin glargine 100 unt/ml pen injector (4 sources) Insulin Analog Start: 04-16-2024 End: 05-16-2024 inject 10 [IU] by subcutaneous injection at bedtime insulin glargine (Lantus SoloStar) 100 UNIT/ML pen Indications: Hyperglycemia Inject 10 Units under the skin at bedtime FILL ACCORDING TO INSURANCE COVERAGE 3 mL 04/16/2024 05/16/2024 Active isopropyl alcohol 0.7 ml/ml medicated pad (11 sources) Start: 03-08-2024 Alcohol Swabs (Alcohol Prep Pad) 70 % pads Indications: Gestational diabetes mellitus (GDM), antepartum, gestational diabetes method of control unspecified , Elevated glucose tolerance test Apply 1 Pad topically Daily Use four times daily to check FSBS. 150 each 3 03/08/2024 Active ivabradine 5 mg oral tablet (5 sources) Hyperpolarizati on-activated Cyclic Nucleotide-gate d Channel Lexi Start: 07-04-2023 End: 10-23-2023 take 1 tablet by mouth twice daily at mealtime Ivabradine (Corlanor) 5 mg tablet Active 2.5 MG PO Twice daily 90 90 July 03, 2023 11:00pm must administer [...] 26, 2019 9:13am take 1 capsule by [facility] every twenty-four hours Linzess 72 MCG 1 cap(s) Orally Once a day for 30 day(s) Active take 1 capsule by [facility] every twenty-four hours Linzess 145 [...] day(s), # 15 cap(s), Refills(s) 0, Pharmacy: [place] [id number] [facility], 157.5, cm, 05/17/21 20:52:00 EDT, [...] Once monthly Quantity: 1 Refills: 3 Haim SET ILLUSTRATOR-REMARKETING MANAGER, SET ILLUSTRATOR-TRANSITION ADVISOR, Chica Start : 05-Nov-2019 Active 1.5 ML [...] Quantity: 60 Refills: 2 Ordered: 09-Mar-2020 Haim SET ILLUSTRATOR-REMARKETING MANAGER, SET ILLUSTRATOR-TRANSITION ADVISOR, Chica Start : 16-Feb-2020 End : 30-Aug-2020 Complete cefdinir 300 mg oral capsule (17 sources) Cephalosporin Antibacterial Start: 11-05-2019 take 2 capsules by mouth once daily Cefdinir 300 MG Oral Capsule TAKE 2 CAPSULES DAILY. Quantity: 2 Refills: 0 Ordered: 05-Nov-2019 Haim HADDADN-REMARKETING MANAGER, SET ILLUSTRATOR-TRANSITION ADVISOR, Chica Start : 05-Nov-2019 Active cephalexin 500 [...] once daily Quantity: 30 Refills: 3 Haim JOSE-REMARKETING MANAGER, JOSE-EVER Chica Start : 25-Aug-2019 Active Start: 08-25-2019 Citalopram Hyd robromide 10 MG Oral Tablet TAKE 1 AND 1/2 TABLETS DAILY. Quantity: 45 Refills: 5 Haim JOSE-REMARKETING MANAGER, JOSE-Chica CURTIS Start : 25-Aug-2019 Active clonazePAM 0.5 mg [...] End: 10-16-2020 Duloxetine 40 mg capsule,del ayed release(/EC) Discontinued 60 MG PO Daily October 10, 2018 11:00pm October 15, 2020 11:31pm Start: 10-11-2018 End: 10-16-2020 take 60 mg by mouth once daily Duloxetine Discontinued 60 MG PO Daily October 11, 2018 12:00am October 16, 2020 12:31am Start: 09-30-2018 take 1 capsule by [facility] once daily DULoxetine HCl - 40 MG [...] Quantity: 1 Refills: 3 Ordered: 09-Apr-2021 Haim SET ILLUSTRATOR-REMARKETING MANAGER, SET ILLUSTRATOR-TRANSITION ADVISOR, Chica Start : 09-Apr-2021 Active escitalopram 10 [...] Start: 11-01-2020 take 1 capsule by mo [facility] once daily FLUoxetine HCl - 10 MG Oral Capsule TAKE ONE CAPSULE BY MOUTH ONE TIME DAILY Quantity: 30 Refills: 0 Ordered: 01-Nov-2020 DO Start : 01-Nov-2020 Active Start: 03-29-2020 take 1 tablet by ashtyn th once daily FLUoxetine HCl - 20 MG Oral Tablet TAKE 1 & 1/2 TABLETS BY MOUTH DAILY Quantity: 135 Refills: 1 Ordered: 30-Aug-2020 Haim HADDADN-REMARKETING MANAGER, SET ILLUSTRATOR-TRANSITION ADVISORChica Start : 29-Mar-2020 Active Start: 03-29-2020 take 1.5 tablets by mouth once daily FLUoxetine HCl - 20 MG Oral Tablet TAKE 1.5 TABLET Daily Quantity: 45 Refills: 3 Haim SET ILLUSTRATOR-REMARKETING MANAGER, SET ILLUSTRATOR-TRANSITION ADVISOR, Chica Start : 29-Mar-2020 Active PROzac Active 1.5 [...] Quantity: 1 Refills: 3 Ordered: 26-Mar-2021 Haim SET ILLUSTRATOR-REMARKETING MANAGER, SET ILLUSTRATOR-TRANSITION ADVISOR, Chica Start : 05-Nov-2019 End : 09-Apr-2021 Complete [...] Quantity: 1 Refills: 5 Ordered: 26-Apr-2021 Haim STALLWORTH, Chcia GROVES Start : 26-Apr-2021 Active This will replace Manda with insurance approval. ibuprofen 800 mg oral [...] 2017 12:00am October 11, 2018 7:25pm Julyl 1.530 (9 sources) Julyl .07/09 Not -Taking .07/09 Act sigifredo ketorolac tromethamine 10 mg oral [...] if needed. Quantity: 15 Refills: 0 Haim HADDADN-REMARKETING MANAGER, JOSE-TRANSITION ADVISORChica Start : 29-Apr-2018 Active lamoTRIgine 25 mg [...] Complete Start: 12-07-2019 take 1 capsule by [facility] twice daily at mealtime Amitiza 8 [...] Quantity: 270 Refills: 0 Ordered: 03-Sep-2021 Haim SET ILLUSTRATOR-REMARKETING MANAGER, SET ILLUSTRATOR-TRANSITION ADVISOR, Chica Start : 11-May-2021 Active Josie 0.25-35 [...] Discontinued 100 MG PO Q12H 10 October 15, 2020 11:00pm March 23, 2021 12:05pm [...] October 09, 2020 3:25pm polyethylene glycol 3350 59315 mg powder for oral solution (20 sources) Osmotic Laxative Start: 11-13-2019 End: 10-16-2020 Polyethylene Glycol 3350 (Miralax) 17 gram/dose powder Discontinued 17 GM PO Twice daily as needed for constipation November 12, 2019 11:00pm October 15, 2020 11:31pm MiraLax Active polyethylene glycol 3350 767896 mg / potassium chloride 2970 mg / sodium bicarbonate 6740 mg / sodium chloride 5860 mg / sodium sulfate 78560 mg powder for oral solution (11 sources) [...] October 13, 2018 6:20pm predniSONE Activ e Acphoysy-Xpg-Yf-Fa (5 sources) Start: 09-18-2022 End: 07-04-2023 take 1 tablet by mouth once Sdudwzpd-Cfe-Es-Fa Discontinued TAB PO September 18, 2022 12:00am July 04, 2023 10:12am Start: 09-18-2022 take 1 tablet by mouth once Pr enatal Lnoilppi-Cjk-Pd-Fa Active TAB PO September 18, 2022 12:00am Sdgixdei-Lml-Ld-Fa 1 mg Tablet (3 sources) Start: 09-18-2022 End: 07-04-2023 take 1 tablet by mouth once Uejqjgwe-Zkb-Wi-Fa 1 mg Tablet Discontinued TAB PO September [...] 24 HOURS. Quantity: 9 Refills: 3 Haim SET ILLUSTRATOR-REMARKETING MANAGER, SET ILLUSTRATOR-TRANSITION ADVISOR, Chica Start : 30-Dec-2018 Active sacrosidase 8500 [...] Quantity: 90 Refills: 2 Ordered: 22-Mar-2021 Haim HADDADN-REMARKETING MANAGER, JOSE-TRANSITION ADVISOR, Chica Start : 22-Mar-2021 End : 30-May-2021 [...] tolerance complicating ; childbirth; or the puerperium (4 sources) Gestational diabetes mellitus; Translations: [Gestational diabetes [...] of Phys. EHR Cmte Other complications of (4 sources) size does not accord with dates; [...] unspecified Onset: 2021 Resolved: 2021 Chronic Other screening for suspected conditions (not mental [...] [32 weeks gestation of ] 04-08-2024 Episodic Residual codes; unclassified (2 sources) Gestation period, 34 weeks; Translations: [34 weeks gestation of ] 04-22-2024 Episodic Substance-related disorders (20 sources) Smoker; Translations: [...] per request of Phys. EHR Cmte Other acquired deformities (20 sources) Acquired deformity of lower limb; Translations: [Unspecified acquired deformity of right lower leg] Onset: 01-18-2024 01-18-2024 Episodic Other circulatory disease (7 sources) Postural orthostatic tachycardia syndrome ; Translations: [POTS (postural orthostatic tachycardia syndrome)] Onset: 07-04-2023 Episodic Other connective tissue disease (20 sources) Pelvic floor dysfunction; Translations: [Other specified disorders of muscle] Onset: 11-01-2022 11-01-2022 Episodic Other connective tissue disease (1 source) Other specified disorders of muscle Onset: 2021 Resolved: 2021 Episodic Other connective tissue disease (20 sources) Pain of right calf; Translations: [Pain [...] [Constipation K59.00] Onset: 11-06-2020 Resolved: 2021 Episodic Other and delivery including normal (20 sources) ; Translations: [Encounter for supervision of normal , unspecified, unspecified trimester] Onset: 01-22-2024 04-10-2022 Episodic Comment on above: Problem List clean-u p per request of Phys. EHR Cmte Residual codes; unclassified (20 sources) Gestation period, 21 weeks; Translations: [21 weeks gestation of ] Onset: 01-22-2024 01-22-2024 Episodic NEGATED: Highlighted row has not occurred!Residual codes; unclassified (20 sources) Disease Episodic Results Test Name Value Interpretation Reference Range Facility US OB BPP W NON-STRESS on 04-22-2024 [place] [address] Ultrasound Report Signed Patient: SHIV EVANGELISTA MR#: [id number] : 2000 Acct:[id number] Age/Sex: 24 / F ADM Date: 04/22/24 Loc: US Attending Dr: Navid Cantu D.O. Ordering Physician: Naivd Cantu D.O. Date of Service: 04/22/24 Procedure(s): US OB BPP w non-stress Accession Number(s): [id number] cc: Navid Cantu D.O.; [place] TYS[place] [id number] Patient Name: SHIV EVANGELISTA MRN: [id number] date: 2000 Sex: F Assigned Patient Location: [facility] Current Patient Location: [place] Accession/Order Number: [id number] Exam Date: 04/22/2024 19:02 Report Date: 04/22/2024 19:04 At the request of: NAVID CANTU DO Procedure: US OB BPP w non-stress Ultrasound biophysical profile assessment HISTORY: Gestational diabetes none There is adequate breathing movement, gross body movement, tone and amniotic fluid volume with a total score of 8 out of 8. The amniotic fluid index is 15.3 cm within normal limits. The heart rate is 127 bpm. US/US OB BPP w non-stress IMPRESSION: Adequate ultrasound for biophysical profile Impression dictated by: Ferdinand Farr M.D.04/22/2024 7:04 PM Dictation Location: [employer] Electronically authenticated by: [id number] Y Date: 04/22/2024 19:04 Dictated By: Ferdinand Farr D.O. Signed By: 04/22/241906 DD/ 03 TD/TT: Lithographic Press Operator: [facility] Radiology, Radiologist, - 04/22/2024 [place] [address] Ultrasound Report Signed Patient: SHIV EVANGELISTA MR#: [id number] : 2000 Acct:[id number] Age/Sex: 24 / F ADM Date: 04/22/24 Loc: US Attending Dr: Navid Cantu D.O. Ordering Physician: Navid Cantu D.O. Date of Service: 04/22/24 Procedure(s): US OB BPP w non-stress Accession Number(s): [id number] cc: Navid Cantu D.O.; [place] T[place] [id number] Patient Name: SHIV EVANGELISTA MRN: [facility]:[id number] date: 2000 Sex: F Assigned Patient Location: [facility] Current Patient Location: US Accession/Order Number: [id number] Exam Date: 04/22/2024 19:02 Report Date: 04/22/2024 19:04 At the request of: NAVID CANTU DO Procedure: US OB BPP w non-stress Ultrasound biophysical profile assessment HISTORY: Gestational diabetes none There is adequate breathing movement, gross body movement, tone and amniotic fluid volume with a total score of 8 out of 8. The amniotic fluid index is 15.3 cm within normal limits. The heart rate is 127 bpm. US/US OB BPP w non-stress IMPRESSION: Adequate ultrasound for biophysical profile Impression dictated by: Ferdinand Farr M.D.04/22/2024 7:04 PM Dictation Location: [facility] Electronically authenticated by: [id number] Y Date: 04/22/2024 19:04 Dictated By: Ferdinand Farr D.O. Signed By: 04/22/241906 DD/ 03 TD/TT: Lithographic Press Operator: [facility] Radiology Study observation (narrative) [facility] US OB BPP W NON-STRESS Ordered By: Radiologist Radiology on 04-22-[address] [facility] Work Phone: Urinalysis macro (dipstick) panel (U)on 04-22-2024 Bilirubin, UA Negative Negative - 4(70) +++ mg/dL [facility] Blood, UA Negative Negative - 50 Soto/mcL [facility] Clarity, UA Clear [facility] Color, UA Yellow [facility] Glucose, UA Negative Negative - 2000(110) ++++ mg/dL [facility] Interpretation and review of laboratory results Abnormal [facility] Ketones, UA Positive Negative - 160(16) ++++ mg/dL [facility] Comment on above: trace Leukocytes, UA Positive Negative - 500+++ Adarsh/mcL [facility] Comment on above: small Nitrite, UA Negative Negative - Positive [facility] pH, UA 6 5 - 9 [facility] Protein, UA Trace Negative - 2000(20) ++++ mg/dL [facility] Spec Grav, UA 1.03 1 - 1.03 [facility] Urobilinogen, UA 0.2 0.2 - 12 mg/dL [facility] US OB FOLLOW UP TRANSABDOMIN AL APPROACHon [...] to 28 %. VELMA is 06/04/2024. Electronically Signed:Electronicall y signed by VICTOR M RAY II, MD, PHD at 10-Apr-2024 07:22:07 AM [facility] Normal Not Available Comment on above: Order Comment: US OB SCAN FOR GROWTH Estimated Date of Delivery: 05/29/24 Gestational Age as of 03/11/2024: 28w5d Urinalysis macro (dipstick) panel (U)on 04-08-2024 Bilirubin, UA Negative Negative - 4(70) +++ mg/dL [facility] Blood, UA Negative Negative - 50 Soto/mcL [facility] Clarity, UA Clear [facility] Color, UA Yellow [facility] Glucose, UA Negative Negative - 1999(110) ++++ mg/dL [facility] Interpretation and review of laboratory results Abnormal [facility] Ketones, UA Positive Negative - 160(16) ++++ mg/dL [facility] Leukocytes, UA Moderate Negative - 500+++ Adarsh/mcL [facility] Nitrite, UA Negative Negative - Positive [facility] Healthcare pH, UA 6 5 - 9 [facility] Protein, UA Negative Negative - 2000(20) ++++ mg/dL [facility] Spec Grav, UA 1.02 1 - 1.03 [facility] Urobilinogen, UA 0.2 0.2 - 12 mg/dL [facility] US OB FOLLOW UP TRANSABDOMIN AL APPROACHon [...] 1188 gm / 2 lbs, 9 oz (5589-4149 gm) [place] Normal: 1331 gm (2349-8913 gm) [place] Wt%: 21% for 28.7 wks [...] report is generated using voice recognition reporting ([employer]). On occasion slinksete erroneously drops words from the report or [...] UA Negative Negative - 4(70) +++ mg/dL [facility] Blood, UA Negative Negative - 50 Soto/mcL [facility] Clarity, UA Clear [facility] Color, UA Yellow [facility] Glucose, UA Negative Negative - 2000(110) ++++ mg/dL [facility] Interpretation and review of laboratory results Abnormal [facility] Ketones, UA Negative Negative - 160(16) ++++ mg/dL [facility] Leukocytes, UA Trace Negative - 500+++ Adarsh/mcL [facility] Nitrite, UA Negative Negative - Positive [facility] pH, UA 7 5 - 9 [facility] Protein, UA Negative Negative - 1999(20) ++++ mg/dL [facility] Spec Grav, UA 1.015 1 - 1.[address] [facility] Urobilinogen, UA 0.2 0.2 - 12 mg/dL [facility] Urinalysis macro (dipstick) panel (U)on 02-25-2024 Bilirubin, UA Negative Negative - 4(70) +++ mg/dL [facility] Blood, UA Negative Negative - 50 Soto/mcL [facility] Clarity, UA Clear [facility] Color, UA Yellow [facility] Glucose, UA Negative Negative - 1999(110) ++++ mg/dL [facility] Interpretation and review of laboratory results Normal [facility] Ketones, UA Negative Negative - 160(16) ++++ mg/dL [facility] Leukocytes, UA Negative Negative - 500+++ Adarsh/mcL [facility] Nitrite, UA Negative Negative - Positive [facility] pH, UA 5.5 5 - 9 [facility] Protein, UA Negative Negative - 1999(20) ++++ mg/dL [facility] Spec Grav, UA 1.03 1 - 1.[address] [facility] Urobilinogen, UA 0.2 0.2 - 12 mg/dL [facility] ALL CBC WITH AUTO DIFFon BASOPHILS ABSOLUTE AUTO 0 N [facility] Basophils/100 WBC (Bld) 0.6 % 0.2 - 2.0 % [facility] Eosinophils/100 WBC (Bld) 1.4 % 0.9 - 7.0 % [facility] Erythrocyte distribution width (RBC) [Ratio] 12.3 % 11.0 - 15.0 % [facility] Hematocrit (Bld) [Volume fraction] 31.2 % Low 36.0 - 48.0 % [facility] Hemoglobin (Bld) [Mass/Vol] 10.5 g/dL Low 12.0 - 16.0 g/dL [facility] IMMATURE GRANULOCYTES ABS AUTO 0.13 High [facility] Immature granulocytes/100 WBC (Bld) 1.8 % High 0.0 - 0.5 % [facility] Interpretation and review of laboratory results Abnormal [facility] LYMPHOCYTES ABSOLUTE AUTO 1.[address] [facility] Lymphocytes/100 WBC (Bld) 17.1 % Low 20.5 - 60.0 % [facility] MCH (RBC) [Entitic mass] 31.5 pg 26.7 - 34.0 pg [facility] MCHC (RBC) [Mass/Vol] 33.7 g/dL 29.9 - 35.2 g/dL [facility] MCV (RBC) [Entitic vol] 93.7 fL 81.0 - 99.0 fL [facility] MONOCYTES ABSOLUTE AUTO 0.5 N [facility] Monocytes/100 WBC (Bld) 6.6 % 1.7 - 12.0 % [facility] NEUTROPHILS ABSOLUTE AUTO 5.3 [facility] Neutrophils/100 WBC (Bld) 72.5 % 43.0 - 75.0 % [facility] Platelet mean volume (Bld) [Entitic vol] 9.8 fL 9.5 - 13.5 fL [facility] TBH EO # 0.1 [facility]H PLT 194 [facility] TB RBC 3.33 Low [facility] TB WBC 7.3 [facility] Laboratory - Microbiology an d Antimicrobial susceptibilityon 02-09-2024 SARS-CoV-2 (COVID-19) RNA PAMELA+probe Ql (Unsp spec) Negative [facility] No Panel Informationon 02-08 FLU A Negative [facility] FLU B Negative [facility] Urinalysis macro (dipstick) panel (U)on 01-22-2024 Bilirubin, UA Negative Negative - 4(70) +++ mg/dL [facility] Blood, UA Negative Negative - 50 Soto/mcL [facility] Clarity, UA Clear [facility] Color, UA Yellow [facility] Glucose, UA Negative Negative - 1999(110) ++++ mg/dL [facility] Interpretation and review of laboratory results Abnormal [facility] Ketones, UA Negative Negative - 160(16) ++++ mg/dL [facility] Leukocytes, UA 1+ Negative - 500+++ Adarsh/mcL [facility] Comment on above: small Nitrite, UA Negative Negative - Positive [facility] pH, UA 6 5 - 9 [facility] Protein, UA Negative Negative - 1999(20) ++++ mg/dL [facility] Spec Grav, UA 1.02 1 - 1.03 [facility] Urobilinogen, UA 0.2 0.2 - 12 mg/dL [facility] Alanine aminotransferase [En zymatic activity/volume] in Serum or PlasmaOrdered By: Yaritza Gonzalez on 01-03-2024 ALT [Catalytic activity/Vol] Alanine aminotransferase [Enzymatic activity/volume] in Serum or Plasma 7-52 [facility] Albumin [Mass/volume] in Ser um or Plasma by Bromocresol green (BCG) dye binding methoOrdered By: Yaritza Gonzalez on 01-03-2024 Albumin BCG dye [Mass/Vol] Albumin [Mass/volume] in Serum or Plasma by Bromocresol green (BCG) dye binding metho 3.5-5.7 [facility] Alkaline phosphatase [Enzyma tic activity/volume] in Serum or PlasmaOrdered By: Yaritza Gonzalez on 01-03-2024 ALP [Catalytic activity/Vol] Alkaline phosphatase [Enzymatic activity/volume] in Serum or Plasma 34-104 [facility] Aspartate aminotransferase [ Enzymatic activity/volume] in Serum or PlasmaOrdered By: Yaritza Gonzalez on 01-03-2024 AST [Catalytic activity/Vol] Aspartate aminotransferase [Enzymatic activity/volume] in Serum or Plasma 13-39 [facility] Bilirubin.total [Mass/volume ] in Serum or PlasmaOrdered By: Yaritza Gonzalez on 01-03-2024 Bilirubin [Mass/Vol] Bilirubin.total [Mass/volume] in Serum or Plasma 0.3-1.0 [facility] Calcium [Mass/volume] in Ser um or PlasmaOrdered By: Yaritza Gonzalez 01-03-2024 Calcium [Mass/Vol] Calcium [Mass/volume] in Serum or Plasma 8.6-10.3 [facility] Carbon dioxide, total [Moles /volume] in Serum or PlasmaOrdered By: Yaritza Gonzalez 01-03-2024 CO2 [Moles/Vol] Carbon dioxide, total [Moles/volume] in Serum or Plasma 21.0-31.0 [facility] Chloride [Moles/volume] in S camryn or PlasmaOrdered By: Yaritza Gonzalez on 01-03-2024 Chloride [Moles/Vol] Chloride [Moles/volume] in Serum or Plasma 98-107 [facility] Comprehensive Metabolic Pane yaritza 01-03-2024 Albumin [Mass/Vol] 3.8 g/dL Normal 3.5-5.7 [facility] Comment on above: Performed By: #### C MP #### [address] Albumin/Globulin [Mass ratio] 1.7 {ratio} Normal [facility] Comment on above: Performed By: #### C MP #### [address] ALP [Catalytic activity/Vol] 34 U/L Normal 34-104 [facility] Comment on above: Result Comment: PERF ORMED BY: [place] [address] PATHOLOGIST STAGE SET DESIGNER SHAHANA BRITTON M.D. Performed By: #### C MP #### [address] ALT [Catalytic activity/Vol] 9 U/L Normal 7-52 [facility] Comment on above: Performed By: #### C MP #### [address] Anion gap [Moles/Vol] 8.8 mmol/L Normal 6.0-15.0 [facility] Comment on above: Performed By: #### C MP #### [address] AST [Catalytic activity/Vol] 18 U/L Normal 13-39 [facility] Comment on above: Performed By: #### C MP #### [address] Bilirubin [Mass/Vol] 0.4 mg/dL Normal 0.3-1.0 [facility] Comment on above: Performed By: #### C MP #### [address] Calcium [Mass/Vol] 8.6 mg/dL Normal 8.6-10.3 [facility] Comment on above: Performed By: #### C MP #### [address] Chloride [Moles/Vol] 106 mmol/L Normal 98-107 [facility] Comment on above: Performed By: #### C MP #### [address] CO2 [Moles/Vol] 25.6 mmol/L Normal 21.0-31.0 [facility] Comment on above: Performed By: #### C MP #### [address] Creatinine [Mass/Vol] 0.48 mg/dL Low 0.60-1.20 [facility] Comment on above: Performed By: #### C MP #### [place] [address] [place] GFR/1.73 sq M.predicted MDRD (S/P/Bld) [Vol rate/Area] mL/min/{1.73_m2} Normal [facility] Comment on above: Performed By: #### C MP #### [address] Globulin (S) [Mass/Vol] 2.2 g/dL Normal T [facility] Comment on above: Performed By: #### C MP #### [address] Glucose [Mass/Vol] 70 mg/dL Normal 70-100 [facility] Comment on above: Result Comment: [facility] Glucose Reference Range is dependent on time and content of last meal. Glucose of more than 200 mg/dL in a nonstressed, ambulatory subject supports the diagnosis of Diabetes Mellitus. ADA recommended reference range Performed By: #### C MP #### [place] [address] [place] Potassium [Moles/Vol] 4.4 mmol/L Normal 3.5-5.1 [facility] Comment on above: Performed By: #### C MP #### [address] Protein [Mass/Vol] 6.0 g/dL Low 6.4-8.9 [facility] Comment on above: Performed By: #### C MP #### [facility] [address] Sodium [Moles/Vol] 136 mmol/L Normal 136-145 [facility] Comment on above: Performed By: #### C MP #### [facility] [address] Urea nitrogen [Mass/Vol] 9 mg/dL Normal 7-25 [facility] Comment on above: Performed By: #### C MP #### [facility] [address] Creatinine [Mass/volume] in Serum or PlasmaOrdered By: Yaritza Gonzalez on 01-03-2024 Creatinine [Mass/Vol] Creatinine [Mass/volume] in Serum or Plasma Low 0.60-1.20 [facility] Erythrocyte distribution wid th Auto (RBC) [Ratio]Ordered By: Yaritza Gonzalez on 01-03-2024 Erythrocyte distribution width (RBC) [Ratio] Erythrocyte distribution width [Ratio] by Automated count 11.9-15.3 [facility] Globulin Calc (S) [Mass/Vol] Ordered By: Yaritza Gonzalez on 01-03-2024 Globulin (S) [Mass/Vol] Serum globulin measurement by calculation (mass/volume) [facility] Glucose [Mass/volume] in Ser um or PlasmaOrdered By: Yaritza Gonzalez on 01-03-2024 Glucose [Mass/Vol] Glucose [Mass/volume] in Serum or Plasma 70-100 [facility] Comment on above: ADA recommended refe rence rangeRandom Glucose Reference Range is dependent on time and content of last meal. Glucose of more than 200 mg/dL in a nonstressed, ambulatory subject supports the diagnosis of Diabetes Mellitus. Hematocrit Auto (Bld) [Volum e fraction]Ordered By: Yaritza Gonzalez on 01-03-2024 Hematocrit (Bld) [Volume fraction] Hematocrit [Volume Fraction] of Blood by Automated count Low 34.0-46.4 [facility] Hemoglobin [Mass/volume] in BloodOrdered By: Yaritza Gonzalez on 11-23-2024 Hemoglobin (Bld) [Mass/Vol] Hemoglobin [Mass/volume] in Blood Low 11.8-15.4 [facility] Hemogram CBC Without Diffon 01-03-2024 Erythrocyte distribution width (RBC) [Ratio] 13.3 % Normal 11.9-15.3 [facility] Comment on above: Performed By: #### C BCNO #### [facility] [address] Hematocrit (Bld) [Volume fraction] 32.2 % Low 34.0-46.4 [facility] Comment on above: Performed By: #### C BCNO #### [facility] [address] Hemoglobin (Bld) [Mass/Vol] 11.1 g/dL Low 11.8-15.4 [facility] Comment on above: Performed By: #### C BCNO #### [facility] [address] MCH (RBC) [Entitic mass] 31.3 pg Normal 24.7-34.3 [facility] Comment on above: Performed By: #### C BCNO #### [facility] [address] MCV (RBC) [Entitic vol] 90.8 fL Normal 80-100 [facility] Comment on above: Performed By: #### C BCNO #### [facility] [address] Mean Corpuscular HGB Conc 34.4 g/dL Normal 32.0-35.0 [facility] Comment on above: Performed By: #### C BCNO #### [facility] [address] Platelet mean volume (Bld) [Entitic vol] 8.2 fL Normal 6.3-10.7 [facility] Comment on above: Result Comment: PERF ORMED BY: [place] [address] PATHOLOGIST STAGE SET DESIGNER SHAHANA BRITTON M.D. Performed By: #### C BCNO #### [facility] [address] Platelets (Bld) [#/Vol] 219 10*3/uL Normal 150-450 [facility] Comment on above: Performed By: #### C BCNO #### [facility] [address] RBC (Bld) [#/Vol] 3.55 10*6/uL Low 3.60-5.00 [facility] Comment on above: Performed By: #### C BCNO #### [facility] [address] WBC (Bld) [#/Vol] 7.2 10*3/uL Normal 3.8-11.6 [facility] Comment on above: Performed By: #### C BCNO #### [facility] [address] Laboratory - Chemistry and C hemistry - challengeon 01-03-2024 Albumin [Mass/Vol] 3.8 g/dL 3.5 - 5.7 g/dL [facility] Albumin/Globulin [Mass ratio] 1.7 {ratio} [facility] ALP [Catalytic activity/Vol] 34 U/L 34 - 104 U/L [facility] ALT [Catalytic activity/Vol] 9 U/L 7 - 52 U/L [facility] Anion gap [Moles/Vol] 8.8 mmol/L 6.0 - 15.0 meq/L [facility] AST [Catalytic activity/Vol] 18 U/L 13 - 39 U/L [facility] Bilirubin [Mass/Vol] 0.4 mg/dL 0.3 - 1 .0 mg/dL [facility] Calcium [Mass/Vol] 8.6 mg/dL 8.6 - 10. 3 mg/dL [facility] Chloride [Moles/Vol] 106 mmol/L 98 - 10 7 mmol/L [facility] CO2 [Moles/Vol] 25.6 mmol/L 21.0 - 31.0 mmol/L [facility] Creatinine (U) [Mass/Vol] 0.48 mg/dL Low 0.60 - 1.20 mg/dL [facility] Globulin (S) [Mass/Vol] 2.2 g/dL N [facility] Glucose [Mass/Vol] 70 mg/dL 70 - 100 mg/dL [facility] Comment on above: Random Glucose Refer ence Range is dependent on time and content of last meal. Glucose of more than 200 mg/dL in a nonstressed, ambulatory subject supports the diagnosis of Diabetes Mellitus. ADA recommended reference range Potassium [Moles/Vol] 4.4 mmol/L 3.5 - 5.1 mmol/L [facility] Protein [Mass/Vol] 6 g/dL Low 6.4 - 8.9 g/dL [facility] Sodium [Moles/Vol] 136 mmol/L 136 - 145 mmol/L [facility] Urea nitrogen [Mass/Vol] 9 mg/dL 7 - 25 mg/dL [facility] Laboratory - Hematology and Cell countson 01-03-2024 Erythrocyte distribution width (RBC) [Ratio] 13.3 % 11.9 - 15.3 % [facility] Hematocrit (Bld) [Volume fraction] 32.2 % Low 34.0 - 46.4 % [facility] Hemoglobin (Bld) [Mass/Vol] 11.1 g/dL Low 11.8 - 15.4 g/dL [facility] MCH (RBC) [Entitic mass] 31.3 pg 24.7 - 34.3 pg [facility] MCHC (RBC) [Mass/Vol] 34.4 g/dL 32.0 - 35.0 g/dL [facility] MCV (RBC) [Entitic vol] 90.8 fL 80 - 100 fL [facility] Platelet mean volume (Bld) [Entitic vol] 8.2 fL 6.3 - 10.7 fL [facility] Platelets (Bld) [#/Vol] 219 10*3/uL 150 - 450 10*3/uL [facility] Laboratory - Urinalysison RBC LM.HPF (Urine sed) [#/Area] 3.55 10*6/uL Low 3.60 - 5.00 10*6/uL [facility] WBC LM.HPF (Urine sed) [#/Area] 7.2 10*3/uL 3.8 - 11.6 10*3/uL [facility] Leukocytes [#/volume] correc dionicio for nucleated erythrocytes in Blood by Automated counOrdered By: Yaritza Gonzalez on 01-03-2024 WBC corrected for nucl RBC Auto (Bld) [#/Vol] Leukocytes [#/volume] corrected for nucleated erythrocytes in Blood by Automated coun 3.8-11.6 [facility] MCH Auto (RBC) [Entitic mass ]Ordered By: Yaritza Gonzalez on 01-03-2024 MCH (RBC) [Entitic mass] MCH [Entitic mass] by Automated count 24.7-34.3 [facility] MCHC Auto (RBC) [Mass/Vol]Or dered By: Yaritza Gonzalez on 01-03-2024 MCHC (RBC) [Mass/Vol] MCHC [Mass/volume] by Automated count 32.0-35.0 [facility] MCV Auto (RBC) [Entitic vol] Ordered By: Yaritza Gonzalez on 01-03-2024 MCV (RBC) [Entitic vol] MCV [Entitic vol ume] by Automated count 80-100 [facility] No Panel Informationon 01-02 ESTIMATED GFR mL/Min [facility] Interpretation and review of laboratory results Abnormal [facility] Interpretation and review of laboratory results Abnormal [facility] No Panel InformationOrdered By: Yaritza Gonzalez on 01-03-2024 Estimated GFR (CKD-EPI) > 60.0 mL/Min [facility] Creatinine Clearance (Chem N/A [facility] Platelet mean volume Auto (B ld) [Entitic vol]Ordered By: Yaritza Gonzalez on 01-03-2024 Platelet mean volume (Bld) [Entitic vol] Platelet mean volume [Entitic volume] in Blood by Automated count 6.3-10.7 [facility] Platelets Auto (Bld) [#/Vol] Ordered By: Yaritza Gonzalez on 01-03-2024 Platelets (Bld) [#/Vol] Platelets [#/vol ume] in Blood by Automated count 150-450 [facility] Potassium [Moles/volume] in Serum or PlasmaOrdered By: Yaritza Gonzalez on 01-03-2024 Potassium [Moles/Vol] Potassium [Moles/volume] in Serum or Plasma 3.5-5.1 [facility] Protein [Mass/volume] in Ser um or PlasmaOrdered By: Yaritza Gonzalez on 01-03-2024 Protein [Mass/Vol] Protein [Mass/volume] in Serum or Plasma Low 6.4-8.9 [facility] RBC Auto (Bld) [#/Vol]Ordere d By: Yaritza Gonzalez on 01-03-2024 RBC (Bld) [#/Vol] Erythrocytes [#/volume] in Blood by Automated count Low 3.60-5.00 [facility] Serum or plasma albumin/glob ulin mass ratioOrdered By: Yaritza Gonzalez on 01-03-2024 Albumin/Globulin [Mass ratio] Serum or plasma albumin/globulin mass ratio [facility] Serum or plasma anion gap de terminationOrdered By: Yaritza Gonzalez on 01-03-2024 Anion gap [Moles/Vol] Serum or plasma anion gap determination 6.0-15.0 [facility] Sodium [Moles/volume] in Ser um or PlasmaOrdered By: Yaritza Gonzalez on 01-03-2024 Sodium [Moles/Vol] Sodium [Moles/volume] in Serum or Plasma 136-145 [facility] Urea nitrogen [Mass/volume] in Serum or PlasmaOrdered By: Yaritza Gonzalez on 01-03-2024 Urea nitrogen [Mass/Vol] Urea nitrogen [Mass/volume] in Serum or Plasma 7-25 [facility] IGP,APTIMA HPV,AGE GDLNon AGE GDLN ACOG TESTING Note . [facility] Comment on above: TESTS RESULT FLAG UN ITS REF RANGE LAB Clinician Provided Cytology Information Source.............Cervix No. of containers..01 ThinPrep Vial Age Algo ACOG Raine... FLAG LEGEND: L-Low Normal,H-High Normal,LL-Alert Low,HH-Alert High <-Panic Low,>-Panic High,A-Abnormal,AA-Critical Abnormal Performed at: 01 =G [facility] [place] [address] Laila Addison MD, IGP, RFX APTIMA HPV ASCU Note . [facility] Comment on above: TESTS RESULT FLAG UN ITS REF RANGE LAB DIAGNOSIS: 02 NEGATIVE FOR INTRAEPITHELIAL LESION OR MALIGNANCY. THIS SPECIMEN WAS RESCREENED PART OF OUR EMBOSSED OR IMPRESSED LETTERING PAINTER PROGRAM. Specimen adequacy: 02 Satisfactory for evaluation. Endocervical and/or squamous metaplastic cells (endocervical component) are present. Performed by: 03 Rachael Baig, Hat Body Sorter ([facility]) QC reviewed by: 02 Mary Gonsalves, Hat Body Sorter ([facility]) . 02 Note: Note 02 [...] <-Panic Low,>-Panic High,A-Abnormal,AA-Critical Abnormal Performed at: [address] [id number] Laila Addison MD, 03 [facility] [address] [place] [address] V Hugo PhD, Performed at: = - [facility] [id number] Talent Analyst: Laila Addison MD, Phone: [phone] Performed at: [facility] [id number] Talent Analyst: Laila Addison MD, Phone: [phone] [facility] US.doppler Lower extremity v dion - kay 01-02-2024 EXAM: [facility] US LOWER EXTREMITY VENOUS DUPLEX LEFT [...] PITER CULVER MD at 02-Jan-2024 05:15:11 PM [facility] Piter Culver MD - 01/02/2024 EXAM: [facility] US LOWER EXTREMITY VENOUS DUPLEX LEFT [...] DVT in the left lower extremity. Electronically Signed:Electronicyolanda y signed by PITER CULVER MD at 02-Jan-2024 05:15:11 PM [facility] Radiology Study observation (narrative) [facility] US.doppler Lower extremity v ein - leftOrdered By: Piter Culver on 01-02-2024 [facility] Work Phone: VASC US LOWER EXTREMITY VENO US DUPLEX LEFTon 01-02-2024 VASC US LOWER EXTREMITY VENOUS DUPLEX LEFT EXAM: VAS US LOWER EXTREMITY VENOUS DUPLEX LEFT HISTORY: [...] PITER CULVER MD at 02-Jan-2024 05:15:[address] [facility] Normal Not Available RECURRENT VAGINITIS (HTRX)on 12-26-2023 ATOPOBIUM VAGINAE 0 [facility] ATOPOBIUM VAGINAE Not detected [facility] BVAB 2,3 (BACTERIAL VAGINOSIS ASSOCIATED BACTERIA 2, 3); MOBILUNCUS SPP 0 [facility] BVAB 2,3 (BACTERIAL VAGINOSIS ASSOCIATED BACTERIA 2, 3); MOBILUNCUS SPP Not detected [facility] ROWENA ALBICANS, PARAPSILOSIS, TROPICALIS 0 [facility] ROWENA ALBICANS, PARAPSILOSIS, TROPICALIS Not detected [facility] ROWENA GLABRATA 0 [facility] ROWENA GLABRATA Not detected [facility] ROWENA KRUSEI 0 [facility] ROWENA KRUSEI Not detected [facility] CHLAMYDIA TRACHOMATIS 0 [facility] CHLAMYDIA TRACHOMATIS Not detected N [facility] GARDNERELLA VAGINALIS 0 [facility] GARDNERELLA VAGINALIS Not detected N [facility] MEGASPHAERA (TYPES 1, 2) 0 [facility] MEGASPHAERA (TYPES 1, 2) Not detected [facility] MYCOPLASMA GENITALIUM 0 [facility] MYCOPLASMA GENITALIUM Not detected N [facility] NEISSERIA GONORRHOEAE 0 [facility] NEISSERIA GONORRHOEAE Not detected N [facility] TRICHOMONAS VAGINALIS 0 [facility] TRICHOMONAS VAGINALIS Not detected N [facility] Urinalysis macro (dipstick) panel (U)on 12-24-2023 Bilirubin, UA Negative Negative - 4(70) +++ mg/dL [facility] Blood, UA Negative Negative - 50 Soto/mcL [facility] Clarity, UA Clear [facility] Color, UA Yellow [facility] Glucose, UA Negative Negative - 1999(110) ++++ mg/dL [facility] Interpretation and review of laboratory results Normal [facility] Ketones, UA Positive Negative - 160(16) ++++ mg/dL [facility] Leukocytes, UA Positive Negative - 500+++ Adarsh/mcL [facility] Nitrite, UA Negative Negative - Positive [facility] pH, UA 5.5 5 - 9 [facility] Protein, UA Negative Negative - 1999(20) ++++ mg/dL [facility] Spec Grav, UA 1.02 1 - 1.03 [facility] Urobilinogen, UA 1.0 0.2 - 12 mg/dL [facility] Urinalysis macro (dipstick) panel (U)on 11-25-2023 Bilirubin, UA Negative Negative - 4(70) +++ mg/dL [facility] Blood, UA Negative Negative - 50 Soto/mcL [facility] Clarity, UA Clear [facility] Color, UA Yellow [facility] Glucose, UA Negative Negative - 1999(110) ++++ mg/dL [facility] Interpretation and review of laboratory results Abnormal [facility] Ketones, UA Negative Negative - 160(16) ++++ mg/dL [facility] Leukocytes, UA Trace Negative - 500+++ Adarsh/mcL [facility] Nitrite, UA Negative Negative - Positive [facility] pH, UA 5.5 5 - 9 [facility] Protein, UA Negative Negative - 1999(20) ++++ mg/dL [facility] Spec Grav, UA 1.02 1 - 1.03 [facility] Urobilinogen, UA 0.2 0.2 - 12 mg/dL [facility] ALL CBC WITH AUTO DIFFon BASOPHILS ABSOLUTE AUTO 0.0 N [facility] Basophils/100 WBC (Bld) 0.4 % 0.2 - 2.0 % [facility] Eosinophils/100 WBC (Bld) 1.3 % 0.9 - 7.0 % [facility] Erythrocyte distribution width (RBC) [Ratio] 11.9 % 11.0 - 15.0 % [facility] Hematocrit (Bld) [Volume fraction] 37.1 % 36.0 - 48.0 % [facility] Hemoglobin (Bld) [Mass/Vol] 12.6 g/dL 12.0 - 16.0 g/dL [facility] IMMATURE GRANULOCYTES ABS AUTO 0.04 High [facility] Immature granulocytes/100 WBC (Bld) 0.5 % 0.0 - 0.5 % [facility] Interpretation and review of laboratory results Abnormal [facility] LYMPHOCYTES ABSOLUTE AUTO 1.6 [facility] Lymphocytes/100 WBC (Bld) 18.7 % Low 20.5 - 60.0 % [facility] MCH (RBC) [Entitic mass] 30.5 pg 26.7 - 34.0 pg [facility] MCHC (RBC) [Mass/Vol] 34.0 g/dL 29.9 - 35.2 g/dL [facility] MCV (RBC) [Entitic vol] 89.8 fL 81.0 - 99.0 fL [facility] MONOCYTES ABSOLUTE AUTO 0.8 N [facility] Monocytes/100 WBC (Bld) 9.0 % 1.7 - 12.0 % [facility] NEUTROPHILS ABSOLUTE AUTO 5.9 [facility] Neutrophils/100 WBC (Bld) 70.1 % 43.0 - 75.0 % [facility] Platelet mean volume (Bld) [Entitic vol] 10.5 fL 9.5 - 13.5 fL [facility] TBH EO # 0.1 [facility] PLT [address] [facility] RBC 4.13 Low [facility] TB WBC 8.4 [facility] [facility] HCG ( test) Ql (U)o n 10-23-2023 Interpretation and review of laboratory results Abnormal [facility] Preg Test, Ur Positive [facility] Urinalysis macro (dipstick) panel (U)on 10-23-2023 Bilirubin, UA Negative Negative - 4(70) +++ mg/dL [facility] Blood, UA Positive Negative - 50 Soto/mcL [facility] Comment on above: small Clarity, UA Clear [facility] Color, UA Yellow [facility] Glucose, UA Negative Negative - 1999(110) ++++ mg/dL [facility] Interpretation and review of laboratory results Abnormal [facility] Ketones, UA Negative Negative - 160(16) ++++ mg/dL [facility] Leukocytes, UA Positive Negative - 500+++ Adarsh/mcL [facility] Comment on above: large Nitrite, UA Negative Negative - Positive [facility] pH, UA 5.5 5 - 9 [facility] Protein, UA Negative Negative - 2000(20) ++++ mg/dL [facility] Spec Grav, UA 1.025 1 - 1.03 [facility] Urobilinogen, UA 0.2 0.2 - 12 mg/dL [facility] FPG ECG *OFFICE ONLY*on 06-11 FPG ECG *OFFICE ONLY* [facility] [place] [address] Electrocardiograph Report Signed Patient: Shiv Evangelista MR#: [id number] : 2000 Acct:[id number] Age/Sex: 23 / F ADM Date: 07/04/23 Loc: EKGCARD Room: Type: [facility] Attending Dr: Artur Kang MD Ordering [...] abnormality Abnormal ECG Confirmed by Emmy Jimenez ([id number]) on 07/08/2023 1:09:14 PM Referred By: Electronically Signed By:Emmy Jimenez Transcribed By: MUS Signed By Emmy Jimenez MD 4 [id number] Normal [facility] Basophils Auto (Bld) [#/Vol] Ordered By: YUVAL PETE on 09-19-2022 Basophils (Bld) [#/Vol] 0.0 10*3/uL 0.0-0.2 [facility] Basophils/100 WBC Auto (Bld) Ordered By: YUVAL PETE on 09-19-2022 Basophils/100 WBC (Bld) 0.2 % . [facility] Eosinophils Auto (Bld) [#/Vo l]Ordered By: YUVAL PETE on 09-19-2022 Eosinophils (Bld) [#/Vol] 0.0 10*3/uL 0.0-0.45 [facility] Eosinophils/100 WBC Auto (Bl d)Ordered By: YUVAL PETE on 09-19-2022 Eosinophils/100 WBC (Bld) 0.1 % . [facility] Erythrocyte distribution wid th Auto (RBC) [Ratio]Ordered By: YUVAL PETE on 09-19-2022 Erythrocyte distribution width (RBC) [Ratio] 13.3 % 11.9-15.3 [facility] Hematocrit Auto (Bld) [Volum e fraction]Ordered By: YUVAL PETE on 09-19-2022 Hematocrit (Bld) [Volume fraction] 28.0 % 34.0-46.4 [facility] Hemoglobin [Mass/volume] in BloodOrdered By: YUVAL PETE on 09-19-2022 Hemoglobin (Bld) [Mass/Vol] 9.3 g/dL 11.8-15.4 [facility] Leukocytes [#/volume] correc dionicio for nucleated erythrocytes in Blood by Automated counOrdered By: YUVAL PETE on 09-19-2022 WBC corrected for nucl RBC Auto (Bld) [#/Vol] 14.2 10*3/uL 3.8-11.6 [facility] Lymphocytes Auto (Bld) [#/Vo l]Ordered By: YUVAL PETE on 09-19-2022 Lymphocytes (Bld) [#/Vol] 1.2 10*3/uL 1.00-4.8 [facility] Lymphocytes/100 WBC Auto (Bl d)Ordered By: YUVAL PETE on 09-19-2022 Lymphocytes/100 WBC (Bld) 8.5 % . [facility] MCH Auto (RBC) [Entitic mass ]Ordered By: YUVAL PETE on 09-19-2022 MCH (RBC) [Entitic mass] 28.7 pg 24.7-34.3 [facility] MCHC Auto (RBC) [Mass/Vol]Or dered By: YUVAL PETE on 09-19-2022 MCHC (RBC) [Mass/Vol] 33.2 g/dL 32.0-35.0 [facility] MCV Auto (RBC) [Entitic vol] Ordered By: YUVAL PETE on 09-19-2022 MCV (RBC) [Entitic vol] 86.3 fL 80-100 [facility] Monocytes Auto (Bld) [#/Vol] Ordered By: YUVAL PETE on 09-19-2022 Monocytes (Bld) [#/Vol] 1.5 10*3/uL 0.0-0.8 [facility] Monocytes/100 WBC Auto (Bld) Ordered By: YUVAL PETE on 09-19-2022 Monocytes/100 WBC (Bld) 10.2 % . [facility] Neutrophils Auto (Bld) [#/Vo l]Ordered By: YUVAL PETE on 09-19-2022 Neutrophils (Bld) [#/Vol] 11.5 10*3/uL 1.8-7.7 [facility] Neutrophils/100 WBC Auto (Bl d)Ordered By: YUVAL PETE on 09-19-2022 Neutrophils/100 WBC (Bld) 81.0 % . [facility] Nucleated erythrocytes [Pres ence] in Blood by Automated countOrdered By: YUVAL PETE on 09-19-2022 Nucleated RBC Auto Ql (Bld) 0.0 /100{WBC} 0-0.5 [facility] Platelet mean volume Auto (B ld) [Entitic vol]Ordered By: YUVAL PETE on 09-19-2022 Platelet mean volume (Bld) [Entitic vol] 8.8 fL 6.3-10.7 [facility] Platelets Auto (Bld) [#/Vol] Ordered By: YUVAL PETE on 09-19-2022 Platelets (Bld) [#/Vol] 181 10*3/uL 150-450 [facility] RBC Auto (Bld) [#/Vol]Ordere d By: YUVAL PETE on 09-19-2022 RBC (Bld) [#/Vol] 3.24 10*6/uL 3.60-5.00 [facility] WBC Auto (Bld) [#/Vol]Ordere d By: YUVAL PETE on 09-19-2022 WBC (Bld) [#/Vol] 14.2 10*3/uL 3.8-11.6 [facility] Amphetamine Screen Ql (U)Ord ered By: YUVAL PETE on 09-18-2022 Amphetamines Ql (U) Negative Negative [facility] Automated epithelial cells c ount in urine sediment (number/area)Ordered By: YUVAL PETE on 09-18-2022 Epithelial cells Auto (Urine sed) [#/Area] 10-19 [HPF] 0-2 [facility] Automated erythrocytes count in urine sediment (number/area)Ordered By: YUVAL PETE on 09-18-2022 RBC Auto (Urine sed) [#/Area] 0-1 [HPF] 0-4 [facility] Automated leukocytes count i n urine sediment (number/area)Ordered By: YUVAL PETE on 09-18-2022 WBC Auto (Urine sed) [#/Area] 20-49 [HPF] 0-4 [facility] Automated urine hyaline cast s count (number/volume)Ordered By: YUVAL PETE on 09-18-2022 Hyaline casts Auto (U) [#/Vol] None seen [LPF] 0-1 [facility] Barbiturates [Presence] in U rine by Screen methodOrdered By: YUVAL PETE on 09-18-2022 Barbiturates Screen Ql (U) Negative Negative [facility] Benzodiazepines Screen Ql (U )Ordered By: YUVAL PETE on 09-18-2022 Benzodiazepines Ql (U) Negative [facility] Benzoylecgonine [Presence] i n Urine by Screen methodOrdered By: YUVAL PETE on 09-18-2022 Benzoylecgonine Screen Ql (U) Negative Negative [facility] Bilirubin Test strip Ql (U)O rdered By: YUVAL PETE on 09-18-2022 Bilirubin Ql (U) Negative Negative [facility] Color Auto (U)Ordered By: CHARLES PETE on 09-18-2022 Color (U) Yellow Yellow [facility] Ketones Auto test strip (U) [Mass/Vol]Ordered By: YUVAL PETE on 09-18-2022 Ketones (U) [Mass/Vol] Negative Negative [facility] Nitrite Test strip Ql (U)Ord ered By: YUVAL PETE on 09-18-2022 Nitrite Ql (U) Negative Negative [facility] Opiates [Presence] in Urine by Screen methodOrdered By: YUVAL PETE on 09-18-2022 Opiates Screen Ql (U) Negative Negative [facility] Phencyclidine Screen Ql (U)O rdered By: YUVAL PETE on 09-18-2022 Phencyclidine Ql (U) Negative Negative [facility] Comment on above: These are unconfirme d results and should not be used for legal purposes. Drug Cut-Off Concentration: AMPH 1000 ng/mL LESLEY 200 ng/mL NETTIE 200 ng/mL COCM 300 ng/mL OP 300 ng/mL PCP 25 ng/mL Protein Auto test strip (U) [Mass/Vol]Ordered By: YUVAL PETE on 09-18-2022 Protein (U) [Mass/Vol] Negative Negative [facility] Reagin Ab [Presence] in Seru m by RPROrdered By: YUVAL PETE on 09-18-2022 Reagin Ab RPR Ql (S) Non-Reactive Non Reactive [facility] Comment on above: Performed at: [address] [id number] Director: Tony Avila PhD, Phone: [phone] Specific gravity Auto test s trip (U) [Rel density]Ordered By: YUVAL PETE on 09-18-2022 Specific gravity (U) [Rel density] 1.004 1.001-1.030 [facility] Urine bacteria detection by automated methodOrdered By: YUVAL PETE on 09-18-2022 Bacteria Auto Ql (U) 2+ None Seen [facility] Urine clarity by refractomet ry automatedOrdered By: YUVAL PETE on 09-18-2022 Clarity Refractometry automated (U) Cloudy Clear [facility] Urine culture routineOrdered By: YUVAL PETE on 09-18-2022 Bacteria identified Cx Nom (U) 2 Days [facility] Urine glucose measurement by automated test strip (mass/volume)Ordered By: YUVAL PETE on 09-18-2022 Glucose Auto test strip (U) [Mass/Vol] Normal mg/dL Normal [facility] Urine hemoglobin detection b y automated test stripOrdered By: YUVAL PETE on 09-18-2022 Hemoglobin Auto test strip Ql (U) Trace Negative [facility] Urine leukocyte esterase det ection by automated test stripOrdered By: YUVAL PETE on 09-18-2022 Leukocyte esterase Auto test strip Ql (U) 4+ Negative [facility] Urobilinogen Auto test strip (U) [Mass/Vol]Ordered By: YUVAL PETE on 09-18-2022 Urobilinogen (U) [Mass/Vol] Normal mg/dL Normal [facility] pH Auto test strip (U)Ordere d By: YUVAL PETE on 09-18-2022 pH (U) 7.0 [pH] 5.0-9.0 [facility] Group B Streptococcus cultur eOrdered By: Chica Newman on 09-03-2022 S. agalactiae Org specific cx Ql (Unsp spec) No Group B Beta Streptococcus Isolated 3 Days [facility] Amphetamine Screen Ql (U)Ord ered By: Terence Tolentino on 08-10-2022 Amphetamines Ql (U) Negative Negative [facility] Automated erythrocytes count in urine sediment (number/area)Ordered By: Terence Tolentino on 08-10-2022 RBC Auto (Urine sed) [#/Area] 0-1 [HPF] 0-4 [facility] Automated leukocytes count i n urine sediment (number/area)Ordered By: Terence Tolentino on 08-10-2022 WBC Auto (Urine sed) [#/Area] 10-19 [HPF] 0-4 [facility] Barbiturates [Presence] in U rine by Screen methodOrdered By: Terence Tolentino on 08-10-2022 Barbiturates Screen Ql (U) Negative Negative [facility] Benzodiazepines Screen Ql (U )Ordered By: Terence Tolentino on 08-10-2022 Benzodiazepines Ql (U) Negative Negative [facility] Benzoylecgonine [Presence] i n Urine by Screen methodOrdered By: Terence Tolentino on 08-10-2022 Benzoylecgonine Screen Ql (U) Negative Negative [facility] Bilirubin Test strip Ql (U)O rdered By: Terence Tolentino on 08-10-2022 Bilirubin Ql (U) Negative Negative [facility] Color Auto (U)Ordered By: Carla Tolentino on 08-10-2022 Color (U) Yellow Yellow [facility] Ketones Auto test strip (U) [Mass/Vol]Ordered By: Terence Tolentino on 08-10-2022 Ketones (U) [Mass/Vol] Negative Negative [facility] Laboratory - UrinalysisOrder ed By: Terence Tolentino on 08-10-2022 Hyaline casts LM Ql (Urine sed) None seen [LPF] 0-8 [facility] Nitrite Test strip Ql (U)Ord ered By: Terence Tolentino on 08-10-2022 Nitrite Ql (U) Negative Negative [facility] No Panel InformationOrdered By: Terence Tolentino on 08-10-2022 Membranes Rupture (PAMG-1) Negative Negative [facility] Opiates [Presence] in Urine by Screen methodOrdered By: Terenec Tolentino on 08-10-2022 Opiates Screen Ql (U) Negative Negative [facility] Phencyclidine Screen Ql (U)O rdered By: Terence Tolentino on 08-10-2022 Phencyclidine Ql (U) Negative Negative [facility] Comment on above: These are unconfirme d results and should not be used for legal purposes. Drug Cut-Off Concentration: AMPH 1000 ng/mL LESLEY 200 ng/mL NETTIE 200 ng/mL COCM 300 ng/mL OP 300 ng/mL PCP 25 ng/mL Protein Auto test strip (U) [Mass/Vol]Ordered By: Terence Tolentino on 08-10-2022 Protein (U) [Mass/Vol] [facility] Specific gravity Auto test s trip (U) [Rel density]Ordered By: Terence Tolentino on 08-10-2022 Specific gravity (U) [Rel density] 1.004 1.001-1.030 [facility] Squamous epithelial cells de tection in urine sediment by light microscopyOrdered By: Terence Tolentino on 08-10-2022 Epithelial cells.squamous LM Ql (Urine sed) 0-1 [HPF] 0-2 [facility] Urine bacteria detection by automated methodOrdered By: Terence Tolentino on 08-10-2022 Bacteria Auto Ql (U) None seen None Seen [facility] Urine clarity by refractomet ry automatedOrdered By: Terence Tolentino on 08-10-2022 Clarity Refractometry automated (U) Clear Clear [facility] Urine culture routineOrdered By: Terence Tolentino on 08-10-2022 Bacteria identified Cx Nom (U) 2 Days [facility] Urine glucose measurement by automated test strip (mass/volume)Ordered By: Terence Tolentino on 08-10-2022 Glucose Auto test strip (U) [Mass/Vol] Normal mg/dL Normal [facility] Urine hemoglobin detection b y automated test stripOrdered By: Terence Tolentino on 08-10-2022 Hemoglobin Auto test strip Ql (U) Negative Negative [facility] Urine leukocyte esterase det ection by automated test stripOrdered By: Terence Tolentino on 08-10-2022 Leukocyte esterase Auto test strip Ql (U) 4+ Negative [facility] Urobilinogen Auto test strip (U) [Mass/Vol]Ordered By: Terence Tolentino on 08-10-2022 Urobilinogen (U) [Mass/Vol] Normal mg/dL Normal [facility] pH Auto test strip (U)Ordere d By: Terence Tolentino on 08-10-2022 pH (U) 7.0 [pH] 5.0-9.0 [facility] Cytology Cervical or vaginal smear or scraping studyon 03-12-2022 [facility] Coding Summary.on 11-28-2021 Coding Summary. CD:[id number] Gh0bWw+PGhlYWQ+PE1FV ADhT01gqLEgbF1IG0gUC H1AOSYNFUTHKO8HZT5nr BY0DZslD6LjamAz LnejuLCiTG72CLq3UOH8 dRtmXDlmzY9nlFWpQ9q8 GdBbDZ23tA00JHcoXBFp XtG5DoKginjtfDJj H8fiAzLaoXPmGws+PHRh YmxlIHdpZHRoPScxMDAl EqGcfXgfZE4qTn6sCLRr LWNvbGxhcHNlOiBj y8rgPUAxZZvoZY7bpOtb B9PwkAH4KQXzs6a4Ol47 dHI+SHRsRED9eMwdKCru b598DePzg7ywRTI5 wTMlVPkpCEE4Y32ep8T5 EXDxFYBdGWH3rKJ5cT9b hAkigasjA3EedTNdRiW0 QDP5pBRmwD6ieNns syfblA4oWnl+I35KJH5P VBOOZF1LPdy9M8WaLxud dHI+IZ70BUNpVY88rDJg eVGme5bgrGi2LmLs DXEaOQC5cSfgEBxyv7Oq SODgK28ufUIxf8T4CBKr dFtfxAEkLeAgeQQ7aO9p SKxybsjpp7vqhqbc Xzirl4llxs92fX87S78e YEylJKVrLSB3UOAdTLMy mLcima6qxC6xLc1+IDxj u6fhj3nkfNn7HhBc LRQsirRirIsgMVH6i1Oy Wz69I9BfuHeux9OaRjc1 ov72aOPpz4R5bBX4YEaw FJGosZ0rAQmwGeX7 NWSgCfDdxI49oFIlJMqs Cl3rkAtkzTluCU2oUNAo nvqdFVTlnI1qGRBlfIUb lHcjPZ9tINEbjtyi p613DxOjJKE3PONvpFKo J5TfoH8xQrWdONVhRHIf D4LpeHQkFZboP540NCic PrE5QRClpnJfD4Td YTRwsYmsJkX8k4E6Mm2U a6BmanllZFO4FHvzLBZy FqG8OmTiWrL4C8QrHhf8 SGKatDukEK4hX2Sm ZMYmekajjhwcfEQ0HPFv TRUqkL02dLTmDKiqUx9c p1W9b577QTSvLBCviY22 Dk2jsPgsHXBycMRN gN7riggmx6palpcxDyIo MBVbVXj2XHo2VHGxoHro HeCbGPF0XnQ6UUR5zGJr xE4ldFssnegnaI4x Oyc+Y30whN9kFEL1SQU5 nckrHBMdqpYgLV26FP54 U2FuIquyuCMixAB+PGRp yuYtjJewKS7eNpOm d2qum9EtMJhvP2WkCPAl WEpiJhg6SJAwGAF4kZZ8 xR2qXOUqOStrc3Q3nBO4 F4GamhKzjd7bz6zy GQJtGXkhV03rhETvo2R0 BCJdhYA6BXIanAgpApNb dY27Wqo+DDYutUiog3Ss Bsmeo1bag4anhXp6 IjMwJSIgdmFsaWduPSJ0 m6RgYq88W46fPSluZFOw FOZzAUCdIFXalWvduq8k eM4xCx4+PGNvbCB3 nDU0pJ3tVZJiMrQ7GDvx V140XcTzeVSiOgoch4zz t7oobDv6SsLwGHDcmvFy cEmjICH3n7GoYd59 Q59iXAwmQLIxQQMaQBNj IMObwOumsg0rfW2rEo2+ OF3ho1jwkb61jG84kXW+ TOWwFMB7pGhqFXea ASFchF2yXHsaJlX6NPHl YkFfaB91rVKyNYfySk5p tQedvAlfVK5uSETowyhf b923DaNgo3wsCSJi tEJvGIgdGGC6Y03mz5X3 OSDsWCXbRXD4mYI0oR4n bGlnbjogbGVmdDsgdmVy pZisVVklRKyeW895 IHRvcDsnPlBhdGllbnQg JpRcKSg1B9CjUrh4LFJy hDmvOM4cbZBxSDroUg9c hAauwEjwOT4pAFHk etjlq269IgEje9njYARq aFDjMNuzYCH3Z71kz8W9 SFSbEJFnDJQ0gOA7kS8j bGlnbjogbGVmdDsg hkXelKqzFVeiORslE971 IHRvcDsnPkJpcnRoIERh nWO9XS88SA49vSSxk7F8 hQU0M6HbDXIbtbkm iwxlpLQ6PKTjPJGchC88 Qd5lhWflMg4rECFbQEA3 ZVMjjWSuQ2MbbI4dBgQe UZJrQHSbH3BxjADe GAkiB969AJyhZwN9FCBt guLaC6UqPIJppHxxUtQ6 x9N6Ui2VO7L1BS75NS76 bPDiy9K1cEN4H8Jp UWMltfadhiostYC7ZPMg MXGmvD95Kw4ihQrsWl9r NNScSTE7YEFitYTmR5Mg uF5fCaTaPNHfZWRx M1RvuXCuUNepL830ZDnc MvU7BAHmdmJhG2WhHHOy eOhvKzJ9k8Q4Fm7XFNw7 LS61IQ09lHBuj2B9 pCK1L9CuEZBpwkcaward lYX3PBMlMCHyiC91Zb7v hEgmEf9jIKDtCYZ1JIWt gGHbR4MctM0iHuNm HHJxJROkK6BtzGKuIXqe A380DVhpPuZ5UUVhbgDr A8GcJUMlzVdaUrP9r8Z5 Bl3EVWCmVR60FEQ9 rEL7NX00XC02V6HoFpkh dGFibGU+PHRhYmxlIHdp ZHRoPScxMDAlJyBzdHls EB5wKi6tIQAsYIRj dGxboYFyCgGak0tkQGDp OVizQX0uaJaoU4ScbJO2 RDFty0c1Xq75N85cR4Qx dXA+GHPokJG5rLK9 uF7hLjVtNbW2QIduY393 YqQnqQPpVnzou0yqh9jd oOc5BlN3AGCigqIhdIct OWL6g8XiCi36J34k IHdpZHRoPSIxNSUiIHZh yGjwgd4ayA0jOw3+PGNv vNB5mZV3oW1iZbQhLxB4 BMyiM276GeBswTCb Bomld8kkh4hycBw9EsQs QXWvfwPbhCyzCBP6f4Nc Vq42I7HtsThgf5PhFgk6 sj85gUSnd9U7wJY9 R1UnUGXewcdfdIQryDla XQ2qIBIkkkyyIYFwsZ3a CKLpT3r7WsKfJfG7WXcf K7JsmnL8CSQcjJGm NCzhHMY8R48rx0V3YHKp HALhVOY5yLZ3bS7mpJjg bjogbGVmdDsgdmVydGlj PHtlZUabY037XAHd eFnpNSNbxN3fEJJgbXJq jStjBU4jJSVudkjmCcOA NGbbRWXBKD3KTMM9M5Xy Xix5JXTipAzcDM4j hRFdDFwfYs4qtBcgqCqx DD1aEBXrvcrnOWTspW4k ILHrmSRgpTfmBK1rSTRo ryhnt644WeOvWIS5 LNFcdXZnO6EuaQ5wMiDc RQJeRBKoL6XzyGRoEOzz A444NJczMcX8YXAcvvWg G8PoLUBofSfoHaJ7 r9W5Zj6bZQ9rNQ0cQNCg GY58ZQ08pEPoe7D4lNR5 O4TbOFGfgncbakiqzEO4 QWKxAVBotA70qCOm CUppTl2iw5W0m976CJXp KXUraU46Rv0nhJxdRFBn bWEVwN0qrergj4bhvtek XiSkKOSpMMv6EEz8 LNNzwYyfJvFkZLS1NlH6 GZQ3pZLzgN4czZtkcjwy sQ1yLfo+MjAgWWVhcnM8 Y0QaRsp1ZBWveGva EY2faYPlHMlvJc7boBtn rPstME3yVEGkgaqrZFKn fX6fTZLewKZuiTdiYS6s QEBbampqo382BzCh GDB5OMKsqGIuA0PeeW4p YyWkOKXuEIYgL2QscCNh ZDgmP574ABrhNbQ9FMFu hvHpO4QfVPUoiGra FeQ0d2W9Ip8WIE6hvRC4 S3VxIzj5WXEdeHuwSR1j qEZvDOkjPs1lfYhcsXbg TO3iMNSwfsleLGBn wB7eRLUfuGCwvGujNJ1t JGUgaibyd269OdVgMDS6 MSOkzWIuQ4WmkE6yOjVx IYMkMFNfV4VyzYCu LXvjI969PYttOlK5XQSg ygGsZ1CxUXEwmCbdNzM9 h5Y0Tn6OkVCuK0FjI8r7 L4EtIbprmST+PC90 BTGpLO52zNFlhZQer9km bFl5ReSrLIMpWTE2aYje MXmxo9EmRYOuP88idIXq k4A2WYUnbVxnaWCa XsKkgUG7cV2qKDshbdpl o5mbcryyDnuwo2pfkr19 nB53Q80wFHbpDUJsLLJg BNLwWBElhPxquh2p jP7sNc2+TTCrfHE3iYC0 fJ6qQxJcPdM0OKcqG710 EbMwmYZjBrpsf7uwl8lv sQx5QkEqSWKmujYt gDziLIR9u5VxZs24H78k IHdpZHRoPSIyMCUiIHZh bUrdli0sfC8cSf1+PC9j g4dgwq39hL67fYE+ UCPhVNV8zZzpGCqjFKXn rL6sVWyjYaT6AJQcLuPy nZ40uSUnYOphPo6qfLvv xImaUG1iRBEasscq x461ArPrv8gjBOWleYOt IFovLLV1C05xr6E1XQTu FBYcVGB4wBH2sD8aiKhm bjogbGVmdDsgdmVy oGreVHxfZKjxU885VYJj aSfjWbLsaMAwX5tbqqRS HR5iVwbuzVN+PHRkIHN0 kZhxVZqkUSRedA6b YLToP0a5RzUtToM3JPmr Z1EjhtQ0TZBdnUVxQLKk kQFWqY7nrgkof1tnagvl IdKqDHMiRCk6JAr7 NGJejFlyAbSdBVN8WtD7 TGK0qQBbiM9gmQzxgnub xJ7zWfp+RklOOjwvdGQ+ VGNzCQA8yPbiOOnd DBUrvE7qIUCjM5g6QdJx LpW8URbfE6IwkeE5VSWs mKCyYPWlaQXFgW9ybkxf n3miuwxjCaSlSZFx SQl3BUy4HUKvdRouIgWq YIA2PtJ0EWY3uVOubM6p uDjqygkofE3eKor+TVJO OjwvdGQ+PHRkIHN0 uHuiORyoIDUpgR6kUVUg B7a5GmFaOfZ4GVjzA6Ly wmU1DERukSFjVRYcrFMG dM8hlqxva5rtdhuv VmZkGFZtQOh8UXo9PUXv oXbcPnIcDAW9XyX0JDG1 mHOrhJ8qnQgcxexgkF4h Oyc+SFI1OAH2OL44 RN16U5UlMhmuuNDbmXB+ PHRhYmxlIHdpZHRoPScx MCRvQnYpeLgkLA2kNb2w ZGVyLWNvbGxhcHNl OiBj (more content not included)... Normal [facility] Discharge Instructionson Discharge Instructions [id number] [facility] ED Clinical Summaryon 2021 ED Clinical Summary [place] [id number] ED Clinical Summary Person Information Name: SHIV EVANGELISTA/[facility] Age: 21 Years : 2000 Sex: Female Language: Georgian PCP: [place] TYSON DO Marital Status: Single [...] 11/25/2021 23:47:16 11/25/2021 23:47:16 11/25/2021 23:47:16 ADDRESS: [address] [place] [id number] [facility] DOC NOTES: MEDICAL INFORMATION: Prescriptions Given: Medications to Continue with No Changes Other Medications hydrOXYzine (Vistaril 25 mg Cap) 1-2 cap(s) By Mouth 4 times a day as needed as needed for anxiety. Refills: 0. PATIENT EDUCATION INFORMATION: Instructions: Migraine Headache Follow up: With: Address: When: [place] MARBELLA [address] , [address] [address] Business (1) In 3 days DIAGNOSIS: Migraine headache Normal [facility] ED Note-Physicianon 11-27-19 ED Note-Physician Basic [...] 5 mg/mL Inj, 10 mg, IV Push [id number] [F], 1000 mL, IV Disposition Plan Discharge Prescription List Prescriptions No active prescription medications Follow-up With When Contact Information [place] TYSON In [address], [address] [place] [address] [facility] (1) Additional Instructions: Patient Education Migraine Headache [...] Diagnostic Results No qualifying data available. Normal [facility] Comment on above: Result Comment: Elec [...] these instructions at home: Medicines ? Take cxsq-kos-cjjqubu and prescription medicines only as told by your health care provider. ? Ask your health care provider if the medicine prescribed to you: ? Requires you to avoid driving or using heavy machinery. ? Can cause constipation. You may need to take these actions to prevent or treat constipation: ? Drink enough fluid to keep your urine pale yellow. ? Take qptp-hwt-rzkbhty or prescription medicines. ? Eat foods that [...] different or (more content not included)... Normal [facility] ED Patient Summaryon 022 ED Patient Summary [address] [address] Patient Discharge Instructions Person Information Name: SHIV EVANGELISTA Age: 21 Years Arrival Date: 11/25/2021 18:57:45 Discharge Diagnosis: Migraine headache Primary Care Physician: [place] TYOSN DO Provider Information Primary Provider: Rayray Aquino DO Advanced Emergency Detail Driver:None The exam and treatment you received in the Emergency Department were for an urgent problem and are not intended as complete care. It is important that you follow up with a doctor, nurse practitioner, or physician?s optometry assistant for ongoing care. If your symptoms [...] Instructions: With: Address: When: [place] , [facility] [address] [place] [address] Business (1) In 3 days In the event that this physician does not participate in your insurance network, please consult with your insurance company to find a nearby participating provider. Patient Education Materials: Migraine Headache A MESSAGE TO ALL PATIENTS REGARDING OPIOIDS PRESCRIPTION OPIOIDS: WHAT YOU NEED TO KNOW Prescription opioids can be used to help relieve liwwrqmy-pz-wzjjvu pain and are often prescribed following a [...] be struggling with addiction, tell your health senior care assistant and ask for guidance or call [facility]?[employer] at 6-794-069-HELP. v Source: [place] Department of Health and Human (more content not included)... Normal [facility] Progress Note-Nurseon 2021 Progress Note-Nurse Pt. brought back to ed bed [address] [facility] Progress Note-Nurse Pt. states her headache is completely gone and she is ready to go home. Normal [facility] Consent for Treatmenton 11-10 Consent for Treatment [id number] 21 [id number] #1.00CD:127 [facility] Urine culture routineOrdered By: Ok Tyson on 10-11-2021 Bacteria identified Cx Nom (U) Klebsiella pneumoniae [facility] Automated epithelial cells c ount in urine sediment (number/area)Ordered By: Ok Tyson on 10-09-2021 Epithelial cells Auto (Urine sed) [#/Area] 20-49 [HPF] 0-2 [facility] Automated erythrocytes count in urine sediment (number/area)Ordered By: Ok Tyson on 10-09-2021 RBC Auto (Urine sed) [#/Area] None seen [HPF] 0-4 [facility] Automated leukocytes count i n urine sediment (number/area)Ordered By: Ok Tyson on 10-09-2021 WBC Auto (Urine sed) [#/Area] 1-2 [HPF] 0-4 [facility] Automated urine hyaline cast s count (number/volume)Ordered By: Ok Tyson on 10-09-2021 Hyaline casts Auto (U) [#/Vol] None seen [LPF] 0-1 [facility] Bilirubin Test strip Ql (U)O rdered By: Ok Tyson on 10-09-2021 Bilirubin Ql (U) Negative Negative [facility] Color Auto (U)Ordered By: Anna Tyson on 10-09-2021 Color (U) Yellow Yellow [facility] Ketones Auto test strip (U) [Mass/Vol]Ordered By: Ok Tyson on 10-09-2021 Ketones (U) [Mass/Vol] Negative Negative [facility] Nitrite Test strip Ql (U)Ord ered By: Ok Tyson on 10-09-2021 Nitrite Ql (U) Negative Negative [facility] Protein Auto test strip (U) [Mass/Vol]Ordered By: Ok Tyson on 10-09-2021 Protein (U) [Mass/Vol] Negative Negative [facility] Specific gravity Auto test s trip (U) [Rel density]Ordered By: Ok Tyson on 10-09-2021 Specific gravity (U) [Rel density] 1.005 1.001-1.030 [facility] Urine bacteria detection by automated methodOrdered By: Ok Tyson on 10-09-2021 Bacteria Auto Ql (U) 3+ None Seen [facility] Urine clarity by refractomet ry automatedOrdered By: Ok Tyson on 10-09-2021 Clarity Refractometry automated (U) Clear Clear [facility] Urine glucose measurement by automated test strip (mass/volume)Ordered By: Ok Tyson on 10-09-2021 Glucose Auto test strip (U) [Mass/Vol] Normal mg/dL Normal [facility] Urine hemoglobin detection b y automated test stripOrdered By: Ok Tyson on 10-09-2021 Hemoglobin Auto test strip Ql (U) Negative Negative [facility] Urine leukocyte esterase det ection by automated test stripOrdered By: Ok Tyson on 10-09-2021 Leukocyte esterase Auto test strip Ql (U) 2+ Negative [facility] Urobilinogen Auto test strip (U) [Mass/Vol]Ordered By: Ok Tyson on 10-09-2021 Urobilinogen (U) [Mass/Vol] Normal mg/dL Normal [facility] pH Auto test strip (U)Ordere d By: Ok Tyson on 10-09-2021 pH (U) 7.0 [pH] 5.0-9.0 [facility] Albumin [Mass/volume] in Ser um or PlasmaOrdered By: Ok Tyson on 09-13-2021 Albumin [Mass/Vol] 4.5 g/dL 3.2-5.5 [facility] Creatinine and Glomerular fi ltration rate.predicted panel (S/P/Bld)Ordered By: Ok Tyson on 09-13-2021 Creatinine [Mass/Vol] 0.71 mg/dL 0.44-1.03 [facility] Estimated glomerular filtrat ion rate (GFR) non- AmericanOrdered By: Ok Tyson on 09-13-2021 GFR/1.73 sq M.predicted among non-blacks MDRD (S/P/Bld) [Vol rate/Area] > 60 mL/Min [facility] Globulin Calc (S) [Mass/Vol] Ordered By: Ok Tyson on 09-13-2021 Globulin (S) [Mass/Vol] 2.5 g/dL F [facility] No Panel InformationOrdered By: Ok Tyson on 09-13-2021 Estimated GFR () > 60 mL/Min [facility] Comment on above: GFR estimated refere nce range: According to KDOQI guidelines, <60 ml/min/1.73m2 is sufficient to diagnose a patient with chronic kidney disease. Pharmacy Creatinine Clearance (Chem N/A [facility] Protein [Mass/volume] in Ser um or PlasmaOrdered By: Ok Tyson on 09-13-2021 Protein [Mass/Vol] 7.0 g/dL 6.1-7.9 [facility] Serum or plasma alanine schmid otransferase measurement without P-5'-P (enzymatic activiOrdered By: Ok Tyson on 09-13-2021 ALT No additional P-5'-P [Catalytic activity/Vol] 18 U/L 10-60 [facility] Serum or plasma albumin/glob ulin mass ratioOrdered By: Ok Tyson on 09-13-2021 Albumin/Globulin [Mass ratio] 1.8 {ratio} [facility] Serum or plasma alkaline pascale sphatase measurement (enzymatic activity/volume)Ordered By: Ok Tyson on 09-13-2021 ALP [Catalytic activity/Vol] 51 U/L 32-92 [facility] Serum or plasma aspartate am inotransferase measurement (enzymatic activity/volume)Ordered By: Ok Tyson on 09-13-2021 AST [Catalytic activity/Vol] 23 U/L 10-42 [facility] Serum or plasma calcium acosta urement (mass/volume)Ordered By: Ok Tyson on 09-13-2021 Calcium [Mass/Vol] 9.2 mg/dL 8.2-10.2 [facility] Serum or plasma chloride danis surement (moles/volume)Ordered By: Ok Tyson on 09-13-2021 Chloride [Moles/Vol] 104 mmol/L 95-114 [facility] Serum or plasma glucose acosta urement (mass/volume)Ordered By: Ok Tyson on 09-13-2021 Glucose [Mass/Vol] 82 mg/dL 70-100 [facility] Comment on above: ADA recommended refe rence range Random Glucose Reference Range is dependent on time and content of last meal. Glucose of more than 200 mg/dL in a nonstressed, ambulatory subject supports the diagnosis of Diabetes Mellitus. Serum or plasma potassium me asurement (moles/volume)Ordered By: Ok Tyson on 09-13-2021 Potassium [Moles/Vol] 3.4 mmol/L 3.5-5.1 [facility] Serum or plasma sodium measu rement (moles/volume)Ordered By: Ok Tyson on 09-13-2021 Sodium [Moles/Vol] 139 mmol/L 136-146 [facility] Serum or plasma total biliru bin measurement (mass/volume)Ordered By: Ok Tyson on 09-13-2021 Bilirubin [Mass/Vol] 0.4 mg/dL 0.3-1.2 [facility] Serum or plasma total carbon dioxide measurement (moles/volume)Ordered By: Ok Tyson on 09-13-2021 CO2 [Moles/Vol] 28.3 mmol/L 22.0-30.0 [facility] Serum or plasma urea nitroge n measurement (mass/volume)Ordered By: Ok Tyson on 09-13-2021 Urea nitrogen [Mass/Vol] 8 mg/dL 9-23 [facility] Q - Strep pneumo Ab 23 serot ypeson 06-15-2021 SEROTYPE 1 (1) 91.7 [facility] Comment on above: Order Comment: [facility] performed at: , [facility],, [address] [place] [address], , Clinical Staff Rn: Angela Feng MD,PhD,MANOHAR [facility] Collection Date/Time: [facility] Results Received Date/Time: [facility] Reported Date/Time: FASTING: NO Performed By: #### 1 [id number] #### [facility] Default [address] [place] [address] SEROTYPE 12 (12F) 3.7 Normal [facility] Comment on above: Order Comment: [facility] performed at: , [facility] [facility],, [address] [place] [address], , Clinical Staff Rn: Angela Feng MD,PhD,MANOHAR [facility] Date/Time: [facility] Results Received Date/Time: [facility] Reported Date/Time: FASTING: NO Performed By: #### 1 [id number] #### [facility] Default [address] [place] [address] SEROTYPE 14 (14) 163.4 [facility] Comment on above: Order Comment: [facility] performed at: , [employer] [facility],, [address] [place] [address], , Clinical Staff Rn: Angela Feng MD,PhD,MANOHAR [facility] Date/Time: [facility] Results Received Date/Time: [facility] Reported Date/Time: FASTING: NO Performed By: #### 1 [id number] #### [facility] Default [address] [place] [address] SEROTYPE 17 (17F) 4.6 Normal [facility] Comment on above: Order Comment: [facility] performed at: [facility], [employer] [facility],, [facility] [place], , Clinical Staff Rn: Angela Feng MD,PhD,MANOHAR [facility] Date/Time: [facility] Results Received Date/Time: [facility] Reported Date/Time: FASTING: NO Performed By: #### 1 [id number] #### [facility] Default [address] [place] [address] SEROTYPE 19 (19F) 18.2 Normal [facility] Comment on above: Order Comment: [facility] performed at: [facility], [facility],, [address] [place], [place] [address], , Clinical Staff Rn: Angela Feng MD,PhD,MANOHAR [facility] Date/Time: [facility] Results Received Date/Time: [facility] Reported Date/Time: FASTING: NO Performed By: #### 1 [id number] #### [facility] [address] [place] [address] SEROTYPE 2 (2) 4.7 Normal [facility] Specialist Comment on above: Order Comment: [facility] performed at: [facility], [employer],, [address] [place], [place] [address], , Clinical Staff Rn: Angela Feng MD,PhD,MANOHAR [facility] Date/Time: [facility] Results Received Date/Time: [facility] Reported Date/Time: FASTING: NO Performed By: #### 1 [id number] #### [facility] Default [address] [place] [address] SEROTYPE 20 (20) 3.8 Normal [facility] [employer] Comment on above: Order Comment: [facility] performed at: [facility], [facility],, [address] [place] [address], , Clinical Staff Rn: Angela Feng MD,PhD,MANOHAR [facility] Date/Time: [facility] Results Received Date/Time: [facility] Reported Date/Time: FASTING: NO Performed By: #### 1 [id number] #### [facility] [address] [place] [address] SEROTYPE 22 (22F) 4.0 [facility] Comment on above: Order Comment: [facility] performed at: [facility], [facility],, [address] [place] [address], , Clinical Staff Rn: Angela Feng MD,PhD,MANOHAR [facility] Date/Time: [facility] Results Received Date/Time: [facility] Reported Date/Time: FASTING: NO Performed By: #### 1 [id number] #### [facility] [address] [place] [address] SEROTYPE 23 (23F) 5.7 [facility] Comment on above: Order Comment: [facility] performed at: [facility], [facility],, [address] [place] [address], , Clinical Staff Rn: Angela Feng MD,PhD,MANOHAR [facility] Date/Time: [facility] Results Received Date/Time: [facility] Reported Date/Time: FASTING: NO Performed By: #### 1 [id number] #### [facility] [address] [place] [address] SEROTYPE 26 (6B) 7.1 [facility] Comment on above: Order Comment: [facility] performed at: [facility], [employer] [facility],, [facility] [place], , Clinical Staff Rn: Angela Feng MD,PhD,MANOHAR [facility] Date/Time: [facility] Results Received Date/Time: [facility] Reported Date/Time: FASTING: NO Performed By: #### 1 [id number] #### [facility] [address] [place] [address] SEROTYPE 3 (3) 5.2 Normal [facility] Comment on above: Order Comment: [facility] performed at: [facility], [facility],, [facility] [place], , Clinical Staff Rn: Angela Feng MD,PhD,MANOHAR [facility] Date/Time: [facility] Results Received Date/Time: [facility] Reported Date/Time: FASTING: NO Performed By: #### 1 [id number] #### [facility] [address] [place] [address] SEROTYPE 34 (10A) 20.3 Normal [facility] Comment on above: Order Comment: [facility] performed at: [facility], [facility],, [facility] [place], , Clinical Staff Rn: Anglea Feng MD,PhD,MANOHAR [facility] Date/Time: [facility] Results Received Date/Time: [facility] Reported Date/Time: FASTING: NO Performed By: #### 1 [id number] #### [facility] Default [address] [place] [address] SEROTYPE 4 (4) 2.2 Normal [facility] [employer] Comment on above: Order Comment: [facility] performed at: [facility], [facility],, [address] [place], [place], , Clinical Staff Rn: Angela Feng MD,PhD,MANOHAR [facility] Date/Time: [facility] Results Received Date/Time: [facility] Reported Date/Time: FASTING: NO Performed By: #### 1 [id number] #### [facility] [address] [place] [address] SEROTYPE 43 (11A) 10.7 Normal [facility] Comment on above: Order Comment: [facility] performed at: [facility], [employer],, [facility] [place], , Clinical Staff Rn: Angela Fegn MD,PhD,MANOHAR [facility] Date/Time: [facility] Results Received Date/Time: [facility] Reported Date/Time: FASTING: NO Performed By: #### 1 [id number] #### [facility] [address] [place] [address] SEROTYPE 5 (5) 2.5 Normal [facility] Comment on above: Order Comment: [facility] performed at: [facility], [employer],, [facility] [place], , Clinical Staff Rn: Angela Feng MD,PhD,MANOHAR [facility] Date/Time: [facility] Results Received Date/Time: [facility] Reported Date/Time: FASTING: NO Performed By: #### 1 [id number] #### [facility] [address] [place] [address] SEROTYPE 51 (7F) 4.3 Normal [facility] Comment on above: Order Comment: [facility] performed at: [facility], [employer],, [address] [place], [place] [address], , Clinical Staff Rn: Angela Feng MD,PhD,MANOHAR [facility] Date/Time: [facility] Results Received Date/Time: [facility] Reported Date/Time: FASTING: NO Performed By: #### 1 [id number] #### [facility] [address] [place] [address] SEROTYPE 54 (15B) 9.3 [facility] Comment on above: Order Comment: [facility] performed at: [facility], [facility],, [facility] [place], , Clinical Staff Rn: Angela Feng MD,PhD,MANOHAR [facility] Collection Date/Time: [facility] Results Received Date/Time: [facility] Reported Date/Time: FASTING: NO Performed By: #### 1 [id number] #### [facility] [address] [place] [address] SEROTYPE 56 (18C) 15.2 [facility] Comment on above: Order Comment: [facility] performed at: [facility], [facility],, [facility] [place], , Clinical Staff Rn: Angela Feng MD,PhD,MANOHAR [facility] Date/Time: [facility] Results Received Date/Time: [facility] Reported Date/Time: FASTING: NO Performed By: #### 1 [id number] #### [facility] Default [address] [place] [address] SEROTYPE 57 (19A) 1.3 [facility] Comment on above: Order Comment: [facility] performed at: [facility], [facility],, [address] [place], [place] [address], , Clinical Staff Rn: Angela Feng MD,PhD,MANOHAR [facility] Date/Time: [facility] Results Received Date/Time: [facility] Reported Date/Time: FASTING: NO Performed By: #### 1 [id number] #### [facility] Default [address] [place] [address] SEROTYPE 68 (9V) 2.5 [facility] Comment on above: Order Comment: [facility] performed at: [facility], [employer],, [address] [place] [address], , Clinical Staff Rn: Angela Feng MD,PhD,MANOHAR [facility] Collection Date/Time: [id number] [facility] Results Received Date/Time: [facility] Reported Date/Time: FASTING: NO Performed By: #### 1 [id number] #### [facility] Default [address] [place] [address] SEROTYPE 70 (33F) 2.5 Normal [facility] Comment on above: Order Comment: [facility] performed at: [facility], [employer],, [address] [place] [address], , Clinical Staff Rn: Angela Feng MD,PhD,MANOHAR [facility] Collection Date/Time: [facility] [...] serotype-specific titers may have less robust responses. [employer] uses a multi-analyte immunodetection (MAID) method. The method employs the [employer] flow cytometric system which measures multiple analytes [...] analytical performance characteristics have been determined by [employer]. It has not been cleared or approved by FDA. This assay has been validated pursuant to the CLIA regulations and used for clinical purposes. For additional information, please refer to http://education.[employer]/faq/GMC710 (This link is being provided for informational/ educational purposes only.) Performed By: #### 1 [id number] #### [facility] Default [address] [place] [address] SEROTYPE 8 (8) 9.8 Normal [facility] Specialist Comment on above: Order Comment: [facility] Testing performed at: [employer] [facility],, [address] [place] [address], , Clinical Staff Rn: Angela Feng MD,PhD,MANOHAR [facility] Collection Date/Time: [facility] Results Received Date/Time: [facility] Reported Date/Time: FASTING: NO Performed By: #### 1 [id number] #### [facility] Default [address] [place] [address] SEROTYPE 9 (9N) 2.8 Normal [facility] [employer] Comment on above: Order Comment: [facility] performed at: [facility], [employer],, [address] [place], [place], , Clinical Staff Rn: Angela Feng MD,PhD,MANOHAR [facility] Collection Date/Time: [facility] Results Received Date/Time: [facility] Reported Date/Time: FASTING: NO Performed By: #### 1 [id number] #### [facility] Default [address] [place] [address] Office Visit (Pediatric Neur ology)on 05-30-2021 Follow-up [...] updates. My nurse is Yolanda Calvillo at [phone]. 8. 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 She will be at [employer]. She has also been diagnosed IGA [...] Vitals V (more content not included)... Normal [facility] CHEMISTRYOrdered By: SYSTEM SYSTEM on 05-17-2021 Anion gap [Moles/Vol] 11 mmol/L Normal 6 - 16 mEq/L [facility] Calcium [Mass/Vol] 9.3 mg/dL Normal 8.9 - 11. 1 mg/dL [facility] Chloride [Moles/Vol] 103 mmol/L Normal 101 - 1 11 mmol/L [facility] CO2 [Moles/Vol] 27 mmol/L Normal 21 - 31 mmol/L [facility] Creatinine [Mass/Vol] 0.8 mg/dL Normal 0.5 - 1.3 mg/dL [facility] GFR/1.73 sq M.predicted among blacks MDRD (S/P/Bld) [Vol rate/Area] mL/min/1.73 m2 Normal >=59mL/min/ 1.73 m2 [facility] Chem S GFR/1.73 sq M.predicted among non-blacks MDRD (S/P/Bld) [Vol rate/Area] mL/min/1.73 m2 Normal >=59mL/min/ 1.73 m2 [facility] Chem S Glucose [Mass/Vol] 152 mg/dL Normal 55 - 199 mg/dL [facility] Potassium [Moles/Vol] 3.3 mmol/L Low 3.5 - 5.3 mmol/L [facility] Sodium [Moles/Vol] 138 mmol/L Normal 135 - 145 mmol/L [facility] Urea nitrogen [Mass/Vol] 9 mg/dL Normal 5 - 21 mg/dL [facility] Urea nitrogen/Creatinine [Mass ratio] 11 mg/mg Normal 10 - 20 [facility] HEMATOLOGYOrdered By: [employer] SYSTEM on 05-17-2021 Basophils/100 WBC (Bld) 0.6 [...] 05-17-2021 HCG.beta subunit (U) [Moles/Vol] Negative Normal [facility] Man Sero URINALYSISOrdered By: Genevieve collins on [...] PM) Normal Negative [facility] UA Auto SS [place].plasma/[place]. RBC (Bld) [Mass ratio] >75 /HPF Invalid [...] [facility] UA Auto SS Urobilinogen Qn (U) [id number] {Deny'U}/dL Normal 0.0 - 1.0 EU/dL [facility] UA Auto SS WBC Auto Ql (U) Negative (05/17/21 9:31 PM) Normal Negative [facility] UA Auto SS WBC LM.HPF (Urine sed) [#/Area] 0-5 /HPF Normal 0-5/HPF [facility] UA Auto SS Q - Diptheria/Tetanus Abon 0 04-13-2021 DIPHTHERIA ANTITOXOID 0.59 IU/mL Normal [facility] [place] [facility] Comment on above: Order Comment: [facility] Testing performed at: [facility], [facility], [address], [place], [place], , Clinical Staff Rn: Gurmeet Rabago M.D.,PhD [facility] Collection Date/Time: [facility] [...] analytical performance characteristics have been determined by [employer] [place], [place]. It has not been cleared or approved by the U.S. Food and Drug Administration. This assay has been validated pursuant to the CLIA regulations and is used for clinical purposes. Performed By: #### 1 [id number], 64909G, 26904O, 88258X, 86281K, 65107M, 05030 #### [facility] Default [address] [place] [address] TETANUS ANTITOXOID 0.71 IU/mL Normal [facility] Comment on above: Order Comment: [facility] Testing performed at: [facility], [facility], [address], [place], [place], , Clinical Staff Rn: Gurmeet Rabago M.D.,PhD [facility] Collection Date/Time: [facility] [...] analytical performance characteristics have been determined by [employer] [place], [place]. It has not been cleared or approved by the U.S. Food and Drug Administration. This assay has been validated pursuant to the CLIA regulations and is used for clinical purposes. Performed By: #### 1 [id number], 40010X, 88062X, 07777T, 62820T, 26610M, 93400 #### [facility] Default [address] [place] [address] Q - HIV AB, HIV 1/2, EIAon 0 04-13-2021 HIV AG/AB, 4TH GEN Non-Reactive Normal NON-REACT IV E [facility] Comment on above: Order Comment: [facility] Testing performed at: [employer], [employer], [address], [address] [place] [address], [address], Clinical Staff Rn: David Mancilla MD [facility] Collection Date/Time: [facility] [...] purpose. For additional information please refer to http://education.BuzzFeed/faq/GMI286 (This link is being provided for informational/ educational purposes only.) The performance of this assay has not been clinically validated in patients less than 2 years old. Performed By: #### 1 [id number], 25470B, 39575A, 58664D, 32240I, 84001Z, 13031 #### [facility] Default [address] [place] [address] Q - IGA,SERUMon 04-13-2021 IMMUNOGLOBULIN A 58 mg/dL Normal 47-310 [facility] Comment on above: Order Comment: [facility] performed at: [employer] [facility], [address], [address] [place], [address], Clinical Staff Rn: David Mancilla MD [facility] Collection Date/Time: [facility] Results Received Date/Time: [facility] Reported Date/Time: Performed By: #### 1 [id number], 68925B, 28243I, 07505T, 58359J, 73933K, 18286 #### [facility] Default [address] [place] [address] Q - IGE,SERUMon 04-13-2021 IMMUNOGLOBULIN E 7 kU/L Normal [facility] Comment on above: Order Comment: [facility] performed at: [facility], [employer] [facility], [address] [place] [address], [address] [place] [address], Clinical Staff Rn: David Mancilla MD [facility] Date/Time: [facility] Results Received Date/Time: [facility] Reported Date/Time: Performed By: #### 1 [id number], 89037W, 72584T, 25541L, 77476V, 08241R, 48892 #### [facility] Default [address] [place] [address] Q - IGG,SERUMon 04-13-2021 IMMUNOGLOBULIN G 912 mg/dL Normal 600-1640 [facility] Specialist Comment on above: Order Comment: [facility] performed at: [facility], [employer] [facility], [address] , [address] [place] [address], [address] [place] [address], Clinical Staff Rn: David Mancilla MD [facility] Date/Time: [facility] Results Received Date/Time: [facility] Reported Date/Time: Performed By: #### 1 [id number], 06955N, 88089Z, 69289E, 48631N, 10835W, 95324 #### [facility] Default [address] [place] [address] Q - IGM,SERUMon 04-13-2021 IMMUNOGLOBULIN M 73 mg/dL Normal 50-300 [facility] Specialist Comment on above: Order Comment: [facility] performed at: [employer], [employer] [facility], [address] , [address] [place] [address], [address] [place] [address], Clinical Staff Rn: David Mancilla MD [facility] Date/Time: [facility] Results Received Date/Time: [facility] Reported Date/Time: Performed By: #### 1 [id number], 57063Y, 28985A, 64655S, 93257A, 37471F, 43349 #### [facility] Default [address] [place] [address] Q - Strep pneumo Ab 23 serot ypeson 04-13-2021 SEROTYPE 1 (1) 0.8 Normal [facility] Specialist Comment on above: Order Comment: [facility] performed at: [employer], [employer] [facility],, [address] [place], [place], , Clinical Staff Rn: Angela Feng MD,PhD,MANOHAR [facility] Date/Time: [facility] Results Received Date/Time: [facility] Reported Date/Time: Performed By: #### 1 [id number], 34375Y, 16610T, 88665N, 93298M, 27454Y, 30566 #### [facility] Default [address] [place] [address] SEROTYPE 12 (12F) <0.3 Normal [facility] Comment on above: Order Comment: [facility] performed at: [employer], [employer],, [address] [place], [place], , Clinical Staff Rn: Angela Feng MD,PhD,MANOHAR [facility] Date/Time: [facility] Results Received Date/Time: [facility] Reported Date/Time: Performed By: #### 1 [id number], 58575T, 81350J, 70145Y, 72746E, 49189G, 24387 #### [facility] Default [address] [place] [address] SEROTYPE 14 (14) 1.1 [facility] Comment on above: Order Comment: [facility] performed at: [employer] [facility],, [address] [place], [place], , Clinical Staff Rn: Angela Feng MD,PhD,MANOHAR [facility] Date/Time: [facility] Results Received Date/Time: [facility] Reported Date/Time: Performed By: #### 1 [id number], 35633F, 79005S, 24525O, 07993R, 37307O, 29031 #### [facility] Default [address] [place] [address] SEROTYPE 17 (17F) 1.9 Normal [facility] Specialist Comment on above: Order Comment: [facility] performed at: [facility], [employer] [facility],, [address] [place] [address], , Clinical Staff Rn: Angela Feng MD,PhD,MANOHAR [facility] Date/Time: [facility] Results Received Date/Time: [facility] Reported Date/Time: Performed By: #### 1 [id number], 55823V, 73024W, 91386M, 63563O, 04631X, 22616 #### [facility] Default [address] [place] [address] SEROTYPE 19 (19F) 2.3 Normal [facility] Specialist Comment on above: Order Comment: Quest Testing performed at: EZ, [employer] [facility],, [address] [place] [address], , Clinical Staff Rn: Angela Feng MD,PhD,MANOHAR Quest Collection Date/Time: [facility] Results Received Date/Time: [facility] Reported Date/Time: Performed By: #### 1 6963X, 19533O, 82130M, 37838G, 45442I, 50292I, 70791 #### [facility] Default [address] [place] [address] SEROTYPE 2 (2) <0.3 Normal [facility] Machine Bobbin Winder Comment on above: Order Comment: Quest Testing performed at: [facility], [employer] [facility],, [address] [place] [address], , Clinical Staff Rn: Angela Feng MD,PhD,MANOHAR Quest Collection Date/Time: Quest Results Received Date/Time: Quest Reported Date/Time: Performed By: #### 1 6963X, 93046O, 60364F, 37704L, 00724K, 58709B, 41564 #### [facility] Default [address] [place] [address] SEROTYPE 20 (20) 1.0 [facility] Comment on above: Order Comment: Quest Testing performed at: [employer], [employer] [facility],, [address] [place] [address], , Clinical Staff Rn: Angela Feng MD,PhD,MANOHAR Quest Collection Date/Time: [facility] Results Received Date/Time: [facility] Reported Date/Time: Performed By: #### 1 6963X, 97294Q, 13901V, 16363M, 06592H, 63522R, 39397 #### [facility] Default [address] [place] [address] SEROTYPE 22 (22F) <0.3 [facility] Comment on above: Order Comment: Quest Testing performed at: [employer], [employer] [facility],, [address] [place] [address], , Clinical Staff Rn: Angela Feng MD,PhD,MANOHAR Quest Collection Date/Time: [facility] Results Received Date/Time: [facility] Reported Date/Time: Performed By: #### 1 6963X, 02742K, 80466K, 71142D, 04522N, 01062E, 64864 #### [facility] Default [address] [place] [address] SEROTYPE 23 (23F) 3.6 [facility] Comment on above: Order Comment: [facility] Testing performed at: [facility], [employer] [facility],, [address] [place] [address], , Clinical Staff Rn: Angela Feng MD,PhD,MANOHAR Quest Collection Date/Time: [facility] Results Received Date/Time: [facility] Reported Date/Time: Performed By: #### 1 6963X, 52819G, 07727E, 62562I, 73691A, 47739Y, 62525 #### [facility] Default [address] [place] [address] SEROTYPE 26 (6B) 4.5 Normal [facility] Specialist Comment on above: Order Comment: Quest Testing performed at: [facility], [employer] [facility],, [address] [place] [address], , Clinical Staff Rn: Angela Feng MD,PhD,MANOHAR Quest Collection Date/Time: [facility] Results Received Date/Time: [facility] Reported Date/Time: Performed By: #### 1 6963X, 15152Y, 31628X, 96050Z, 60410W, 95588X, 87129 #### [facility] Default [address] [place] [address] SEROTYPE 3 (3) 1.7 Normal [facility] Machine Bobbin Winder Comment on above: Order Comment: Quest Testing performed at: [facility], [employer] [facility],, [address] [place] [address], , Clinical Staff Rn: Angela Feng MD,PhD,MANOHAR Quest Collection Date/Time: Quest Results Received Date/Time: Quest Reported Date/Time: Performed By: #### 1 6963X, 67057N, 59396K, 03154R, 00357Q, 41602S, 14482 #### [facility] Default [address] [place] [address] SEROTYPE 34 (10A) 1.6 Normal [facility] Comment on above: Order Comment: Quest Testing performed at: [facility], [employer] [facility],, [address] [place] [address], , Clinical Staff Rn: Angela Fneg MD,PhD,MANOHAR Quest Collection Date/Time: Quest Results Received Date/Time: Quest Reported Date/Time: Performed By: #### 1 6963X, 02129X, 75225L, 64540Q, 12895M, 15582B, 72516 #### [facility] Default [address] [place] [address] SEROTYPE 4 (4) 0.4 Normal [facility] Specialist Comment on above: Order Comment: Quest Testing performed at: [facility], [employer] [facility],, [address] [place] [address], , Clinical Staff Rn: Angela Feng MD,PhD,MANOHAR Quest Collection Date/Time: [facility] Results Received Date/Time: Quest Reported Date/Time: Performed By: #### 1 6963X, 86429E, 97912K, 04513T, 99647V, 44680Y, 62880 #### [facility] Default [address] [place] [address] SEROTYPE 43 (11A) 0.9 Normal [facility] Comment on above: Order Comment: Quest Testing performed at: [facility], [employer] [facility],, [address] [place] [address], , Clinical Staff Rn: Angela Feng MD,PhD,MANOHAR Quest Collection Date/Time: [facility] Results Received Date/Time: [facility] Reported Date/Time: Performed By: #### 1 6963X, 31580G, 88075R, 42424X, 79362L, 03404L, 62050 #### [facility] Default [address] [place] [address] SEROTYPE 5 (5) 0.6 Normal [facility] Specialist Comment on above: Order Comment: Quest Testing performed at: [facility], [employer] [facility],, [facility] [place], , Clinical Staff Rn: Angela Feng MD,PhD,MANOHAR Quest Collection Date/Time: [facility] Results Received Date/Time: [facility] Reported Date/Time: Performed By: #### 1 6963X, 69494H, 95901M, 00236Q, 34477Q, 24594Z, 06863 #### [facility] Default [address] [place] [address] SEROTYPE 51 (7F) 0.4 Normal [facility] Comment on above: Order Comment: Quest Testing performed at: [facility], [employer] [facility],, [address] [place] [address], , Clinical Staff Rn: Angela Feng MD,PhD,MANOHAR Quest Collection Date/Time: [facility] Results Received Date/Time: Quest Reported Date/Time: Performed By: #### 1 6963X, 74697V, 13247E, 92040O, 32519S, 40631U, 28224 #### [facility] Default [address] [place] [address] SEROTYPE 54 (15B) <0.3 Normal [facility] Comment on above: Order Comment: Quest Testing performed at: [facility], [employer] [facility],, [address] [place], [place], , Clinical Staff Rn: Angela Feng MD,PhD,MANOHAR Quest Collection Date/Time: [id number] Quest Results Received Date/Time: [facility] Reported Date/Time: Performed By: #### 1 6963X, 88411H, 46061R, 85768G, 04394J, 32802I, 83399 #### [facility] Default [address] [place] [address] SEROTYPE 56 (18C) 1.1 Normal [facility] Comment on above: Order Comment: Quest Testing performed at: [facility], [employer] [facility],, [address] [place] [address], , Clinical Staff Rn: Angela Feng MD,PhD,MANOHAR Quest Collection Date/Time: Quest Results Received Date/Time: Quest Reported Date/Time: Performed By: #### 1 6963X, 52109M, 51663V, 96739U, 67545I, 21329B, 13311 #### [facility] Default [address] [place] [address] SEROTYPE 57 (19A) 0.4 Normal [facility] Comment on above: Order Comment: Quest Testing performed at: [facility], [employer] [facility],, [address] [place] [address], , Clinical Staff Rn: Angela Feng MD,PhD,MANOHAR Quest Collection Date/Time: Quest Results Received Date/Time: [facility] Reported Date/Time: Performed By: #### 1 6963X, 94154T, 07310I, 24468V, 05163I, 95719U, 11611 #### [facility] Default [address] [place] [address] SEROTYPE 68 (9V) 0.5 [facility] Comment on above: Order Comment: Quest Testing performed at: [facility], [employer] [facility],, [address] [place], [place], , Clinical Staff Rn: Angela Feng MD,PhD,MANOHAR Quest Collection Date/Time: [facility] Results Received Date/Time: [facility] Reported Date/Time: Performed By: #### 1 6963X, 22429D, 23556Q, 71106Q, 62418E, 33146V, 33457 #### [facility] Default [address] [place] [address] SEROTYPE 70 (33F) 0.3 Normal [facility] [place] [facility] Bobbin Winder Comment on above: Order Comment: [facility] Testing performed at: , [facility],, [address] [place] [address], , Clinical Staff Rn: Angela Feng MD,PhD,MANOHAR Quest Collection Date/Time: Quest [...] serotype-specific titers may have less robust responses. [employer] uses a multi-analyte immunodetection (MAID) method. The method employs the [employer] flow cytometric system which measures multiple analytes [...] analytical performance characteristics have been determined by [employer]. It has not been cleared or approved by FDA. This assay has been validated pursuant to the CLIA regulations and used for clinical purposes. For additional information, please refer to http://education.[employer]/faq/AEN392 (This link is being provided for informational/ educational purposes only.) Performed By: #### 1 6963X, 35690Z, 54387A, 95492G, 54958U, 70591W, 05725 #### [facility] Default [address] [place] [address] SEROTYPE 8 (8) 0.3 Normal [facility] Specialist Comment on above: Order Comment: Quest Testing performed at: [employer] [facility],, [address] [place] [address], , Clinical Staff Rn: Angela Feng MD,PhD,MANOHAR Quest Collection Date/Time: Quest Results Received Date/Time: Quest Reported Date/Time: Performed By: #### 1 6963X, 96573Y, 59057J, 88663H, 49971E, 88705Y, 71613 #### [facility] Default [address] [place] [address] SEROTYPE 9 (9N) <0.3 Normal [facility] Comment on above: Order Comment: Quest Testing performed at: [employer], [employer] [facility],, [address] [place] [address], , Clinical Staff Rn: Angela Feng MD,PhD,MANOHAR Quest Collection Date/Time: Quest Results Received Date/Time: Quest Reported Date/Time: Performed By: #### 1 6963X, 01639X, 50351T, 70482S, 35157A, 69993B, 04617 #### [facility] Default [address] [place] [address] Chart Updateon 04-12-2021 Chart Update Chart Update Shiv had a migraine today and was unable to attend class. Signatures Electronically signed by : Chica Whitmore, SET ILLUSTRATOR-REMARKETING MANAGER SET ILLUSTRATOR-TRANSITION ADVISOR; Apr 12 2021 3:16PM EST (Author) Normal [facility] COVID + FLU Quick Testingon 04-04-2021 SARS-CoV-2 (COVID-19) RNA PAMELA+probe Ql (Unsp spec) Negative [employer] Other COVID + FLU Quick Testing Negative [facility] Other Office Visit (Pediatric Neur ology)on 03-22-2021 Follow-up visit Diagnoses/Problems Migraine (346.90) (G43.909) Anxiety (300.00) (F41.9) Orders Migraine Start: Verapamil HCl - 40 MG Oral Tablet; TAKE 1 TABLET 3 times daily MRI Brain without Contrast; Status:Hold For - Scheduling; Requested for:[id number]; Does patient have exposure to metal fragments? : N Radiologist to Determine Optimal Study : Y Requesting physician's phone/pager number? : [phone] Does the patient have a Cochlear Implant, Pacemaker, Defibrilator, Pacing Wire, Brain Aneurysm Clip, Implanted Nerve or Bone Graft Simulator, Implanted Breast Tissue Bindery Library Technical Assistant, Glucose Monitor, or Neulasta Device? : No [...] updates. My nurse is Yolanda Calvillo at [phone]. 8. Follow up in 2-3 months with [...] at headach (more content not included)... Normal [facility] XR Abdomen Single View (KUB) *on 03-08-2021 XR Abdomen Single View (KUB)* HISTORY: Nausea and generalized abdominal pain. Chronic constipation. COMPARISON: CT 11/12/2019 RESULT: Nonspecific nondilated bowel gas pattern. Feces throughout the colon. No abnormal calcifications. No acute osseous findings. Lung bases unremarkable. No other significant abnormality. IMPRESSION: No acute radiographic findings. Report reported and signed by Butch Sanchez on 03/08/2021 1942 Normal [facility] Machine Bobbin Winder [facility] Quick Testingon 2021 Result Negative [employer] Other Keepy Quick Testingon 2020 Result Negative [employer] Other COVID Quick Testingon 2020 Result Negative [employer] Other Quick Strepon 11-19-2020 S. pyogenes Org specific cx Ql (Throat) Negative [employer] Other Quick Strep [employer] Other CNTHERAPYon 11-13-2020 CNTHERAPY OT/PT/Speech Visit ([facility]) SHIV EVANGELISTA ([id number]) 2 F Date Time Provider Department 11/13/20 10:45 AM LYNN POTTS [facility] Date Time Provider Department Center 11/13/2020 10:45 AM [id number], MEGAN [facility] Reason for Visit: Physical Therapy [503] PT Discharge [322] Visit Diagnosis:Spasm of muscle [M62.838] Allergies As [...] 2 tablets by mouth twice daily. Normal [facility] CNTHERAPYon 11-09-2020 CNTHERAPY OT/PT/Speech Visit ([facility]) SHIV EVANGELISTA ([id number]) 2 F Date Time Provider Department 11/09/20 11:30 AM ALEXANDRA SUAREZ Date Time Provider Department Center 11/09/2020 11:30 AM [id number] SUAREZMN [facility] Reason for Visit: PT [...] Planned: 8 Planned Treatment Interventions: Therapeutic exercise (10774);Neuromuscula r re-education (07138);Manual therapy (68803);Therapeutic activities (86993);Self-snf management (81187);Patient/Fami ly/Caregiver Education;Biofeedbac k Pelvic (35339,46426) PLAN FOR NEXT VISIT: toileting positions, colon [...] Family Intake Information: Prescription present Previous Treatment: [facility] [employer] (more content not included)... Normal [facility] Office Visit (Pediatric Neur ology)on 08-30-2020 [...] updates. My nurse is Yolanda Calvillo at [phone]. 8. Follow up in 2-3 months with updates in the interim. Chief Complaint Follow up POTS Accompanied by mother. History of Present Illness Shiv is a 20 year old young woman with POTS, anxiety and headaches. She is taking 2 summer courses. She continues through [facility] nursing and is taking her courses through [...] holidays as well. She still works at [employer]. She denies any thoughts about hurting herself [...] MG Oral Tablet Vitals Vital Signs Recorded: [id number] 01:02PM Znmtui013 lb 7.31 oz 2-20 Weight Nxxnxqplum29 % Physical Exam Constitutional - Well dressed, [...] bilaterally. Fundoscopi (more content not included)... Normal [facility] Psychiatry Adult No report was sent Normal [facility] Provider Orderson 01-17-2020 Provider Orders [id number] [facility] Vital Signs Date Time Vital Sign Value Performing Clinician Facility 04-22-2024 15:19-0400 Body mass index (BMI) [Ratio] 29.41 kg/m2 Linda Robert PA Work Phone: [facility] 04-22-2024 15:19-0400 Body weight 72.94 kg Linda Robert PA Work Phone: [facility] 04-22-2024 15:19-0400 Diastolic blood pressure 60 mm[Hg] Linda Randall PA Work Phone: [facility] 04-22-2024 15:19-0400 Systolic blood pressure 120 mm[Hg] Linda Robert PA Work Phone: [facility] 04-08-2024 15:36-0500 Body mass index (BMI) [Ratio] 28.37 kg/m2 Linda Robert PA Work Phone: [facility] 04-08-2024 15:36-0500 Body weight 70.36 kg Linda Robert PA Work Phone: [facility] 04-08-2024 15:36-0500 Diastolic blood pressure 68 mm[Hg] Linda Robert PA Work Phone: [facility] 04-08-2024 15:36-0500 Systolic blood pressure 126 mm[Hg] Linda Robert PA Work Phone: [facility] 03-25-2024 16:03-0500 Body mass index (BMI) [Ratio] 28.17 kg/m2 Linda Robert PA Work Phone: [facility] 03-25-2024 16:03-0500 Body weight 69.85 kg Linda Toledoey PA Work Phone: [facility] 03-25-2024 16:03-0500 Diastolic blood pressure 68 mm[Hg] Linda Toledoey PA Work Phone: [facility] 03-25-2024 16:03-0500 Systolic blood pressure 116 mm[Hg] Linda Toledoey PA Work Phone: [facility] 03-25-2024 10:13-0500 Diastolic blood pressure 67 mm[Hg] Ok Charlesmaritzak DO Work Phone: [facility] 03-25-2024 10:13-0500 Heart rate 83 /min Ok Vaschak DO Work Phone: [facility] 03-25-2024 10:13-0500 Respiratory rate 18 /min Ok Vaschak DO Work Phone: [facility] 03-25-2024 10:13-0500 SaO2% (BldA) [Mass fraction] 96 % Ok Vaschak DO Work Phone: [facility] 03-25-2024 10:13-0500 Systolic blood pressure 118 mm[Hg] Ok Vaschak DO Work Phone: [facility] 03-25-2024 08:39-0500 Body height 157.48 cm Ok Vaschak DO Work Phone: [facility] 03-25-2024 08:39-0500 Body temperature 98.2 [degF] Ok Vaschak DO Work Phone: [facility] 03-25-2024 08:39-0500 Body weight 70 kg Ok Vaschak DO Work Phone: [facility] 03-25-2024 08:39-0500 Diastolic blood pressure 58 mm[Hg] Ok Vaschak DO Work Phone: [facility] 03-25-2024 08:39-0500 Heart rate 80 /min Ok Tyson DO Work Phone: [facility] 03-25-2024 08:39-0500 Respiratory rate 16 /min Ok Tyson DO Work Phone: [facility] 03-25-2024 08:39-0500 SaO2% (BldA) [Mass fraction] 98 % Ok Tyson DO Work Phone: [facility] 03-25-2024 08:39-0500 Systolic blood pressure 122 mm[Hg] Ok Tyson DO Work Phone: [facility] 03-11-2024 10:34-0500 Body mass index (BMI) [Ratio] 27.33 kg/m2 Navid Alondra DO Work Phone: [facility] 03-11-2024 10:34-0500 Body weight 67.77 kg Navid Alondra DO Work Phone: [facility] 03-11-2024 10:34-0500 Diastolic blood pressure 68 mm[Hg] Navid Alondra DO Work Phone: [facility] 03-11-2024 10:34-0500 Systolic blood pressure 122 mm[Hg] Navid Alondra DO Work Phone: [facility] 02-25-2024 15:37-0500 Body mass index (BMI) [Ratio] 27.09 kg/m2 Navid Alondra DO Work Phone: [facility] 02-25-2024 15:37-0500 Body weight 67.19 kg Navid Alondra DO Work Phone: [facility] 02-25-2024 15:37-0500 Diastolic blood pressure 66 mm[Hg] Navid Alondra DO Work Phone: [facility] 02-25-2024 15:37-0500 Systolic blood pressure 114 mm[Hg] Navid Alondra DO Work Phone: [facility] 02-09-2024 16:38-0500 Diastolic blood pressure 60 mm[Hg] Rahel Napolesion BACK TUFTER Work Phone: [facility] 02-09-2024 16:38-0500 Heart rate 78 /min Rahel Didion BACK TUFTER Work Phone: [facility] 02-09-2024 16:38-0500 Respiratory rate 16 /min Rahel Didion BACK TUFTER Work Phone: [facility] 02-09-2024 16:38-0500 SaO2% (BldA) [Mass fraction] 98 % Rahel Napolesion BACK TUFTER Work Phone: [facility] 02-09-2024 16:38-0500 Systolic blood pressure 118 mm[Hg] Rahel Napolesion BACK TUFTER Work Phone: [facility] 01-22-2024 16:40-0500 Body mass index (BMI) [Ratio] 26.48 kg/m2 Linda Randall PA Work Phone: [facility] 01-22-2024 16:40-0500 Body weight 65.68 kg Linda Yesica PA Work Phone: [facility] 01-22-2024 16:40-0500 Diastolic blood pressure 60 mm[Hg] Linda Randall PA Work Phone: [facility] 01-22-2024 16:40-0500 Systolic blood pressure 118 mm[Hg] Linda Yesica PA Work Phone: [facility] 01-12-2024 15:14-0500 Body height 157.5 cm Ok Goodenk DO Work Phone: [facility] 01-12-2024 15:14-0500 Body mass index (BMI) [Ratio] 25.61 kg/m2 Ok Giacomok DO Work Phone: [facility] 01-12-2024 15:14-0500 Body weight 63.5 kg Ok Giacomok DO Work Phone: [facility] 01-12-2024 15:14-0500 Diastolic blood pressure 60 mm[Hg] Ok Tyson DO Work Phone: [facility] 01-12-2024 15:14-0500 Heart rate 87 /min Ok Tyson DO Work Phone: [facility] 01-12-2024 15:14-0500 SaO2% (BldA) [Mass fraction] 99 % Ok Tyson DO Work Phone: [facility] 01-12-2024 15:14-0500 Systolic blood pressure 114 mm[Hg] Ok Tyson DO Work Phone: [facility] 01-02-2024 17:15-0500 Body mass index (BMI) [Ratio] 25.24 kg/m2 Yaritza Gonzalez BACK TUFTER Work Phone: [facility] 01-02-2024 17:15-0500 Body temperature 98.01 [degF] Yaritza Gonzalez BACK TUFTER Work Phone: [facility] 01-02-2024 17:15-0500 Body weight 62.6 kg Yaritza Gonzalez BACK TUFTER Work Phone: [facility] 01-02-2024 17:15-0500 Heart rate 100 /min Yaritza Gonzalez BACK TUFTER Work Phone: [facility] 01-02-2024 17:15-0500 SaO2% (BldA) [Mass fraction] 99 % Yaritza Gonzalez BACK TUFTER Work Phone: [facility] 12-24-2023 15:56-0500 Body mass index (BMI) [Ratio] 25.13 kg/m2 Navid Alondra DO Work Phone: [facility] 12-24-2023 15:56-0500 Body weight 62.32 kg Navid Alondra DO Work Phone: [facility] 12-24-2023 15:56-0500 Diastolic blood pressure 74 mm[Hg] Navid Alondra DO Work Phone: [facility] 12-24-2023 15:56-0500 Systolic blood pressure 116 mm[Hg] Navid Alondra DO Work Phone: [facility] 12-24-2023 13:55-0500 Body mass index (BMI) [Ratio] 25.28 kg/m2 Suzan Patrick BACK TUFTER Work Phone: [facility] 12-24-2023 13:55-0500 Body temperature 98.71 [degF] Suzan Patrick BACK TUFTER Work Phone: [facility] 12-24-2023 13:55-0500 Body weight 62.7 kg Suzan Dranell BACK TUFTER Work Phone: [facility] 12-24-2023 13:55-0500 Diastolic blood pressure 62 mm[Hg] Suzan Patrick BACK TUFTER Work Phone: [facility] 12-24-2023 13:55-0500 Heart rate 96 /min Suzandavid Patrick BACK TUFTER Work Phone: [facility] 12-24-2023 13:55-0500 SaO2% (BldA) [Mass fraction] 97 % Suzandavid Patrick BACK TUFTER Work Phone: [facility] 12-24-2023 13:55-0500 Systolic blood pressure 118 mm[Hg] Suzandavid Patrick BACK TUFTER Work Phone: [facility] 11-25-2023 14:49-0400 Body mass index (BMI) [Ratio] 25.15 kg/m2 Navid Alondra DO Work Phone: [facility] 11-25-2023 14:49-0400 Body weight 62.37 kg Navid Alondra DO Work Phone: [facility] 11-25-2023 14:49-0400 Diastolic blood pressure 68 mm[Hg] Navid Alondra DO Work Phone: [facility] 11-25-2023 14:49-0400 Systolic blood pressure 118 mm[Hg] Navid Alondra DO Work Phone: [facility] 10-23-2023 15:19-0400 Body mass index (BMI) [Ratio] 24.4 kg/m2 [facility] Nurse [facility] 10-23-2023 15:19-0400 Body weight 60.51 kg [facility] Nurse [facility] 10-23-2023 15:19-0400 Diastolic blood pressure 70 mm[Hg] [facility] Nurse [facility] 10-23-2023 15:19-0400 Systolic blood pressure 120 mm[Hg] [facility] Nurse [facility] 07-04-2023 10:15-0400 Body height 157.48 cm DO Ok Marbella Work Phone: [facility] 07-04-2023 10:15-0400 Body mass index (BMI) [Ratio] 23.8 kg/m2 DO Ok Marbella Work Phone: [facility] 07-04-2023 10:15-0400 Body weight 58.96 kg DO Ok Tyson Work Phone: [facility] 07-04-2023 10:15-0400 Diastolic blood pressure 70 mm[Hg] DO Ok Marbella Work Phone: [facility] 07-04-2023 10:15-0400 Heart rate 72 /min DO Ok Marbella Work Phone: [facility] 07-04-2023 10:15-0400 Respiratory rate 18 /min DO Ok Marbella Work Phone: [facility] 07-04-2023 10:15-0400 SaO2% (BldA) [Mass fraction] 98 % DO Ok Marbella Work Phone: [facility] 07-04-2023 10:15-0400 Systolic blood pressure 124 mm[Hg] DO Ok Giacomok Work Phone: [facility] [facility] 08:00-0400 Body temperature 97.9 [degF] DO Ok Giacomok Work Phone: [facility] 09-20-2022 08:00-0400 Diastolic blood pressure 74 mm[Hg] DO Ok Giacomok Work Phone: [facility] 09-20-2022 08:00-0400 Heart rate 73 /min DO Ok Vaschak Work Phone: [facility] 09-20-2022 08:00-0400 Respiratory rate 18 /min DO Ok Vaschak Work Phone: [facility] 09-20-2022 08:00-0400 SaO2% (BldA) [Mass fraction] 98 % DO Ok Charleschak Work Phone: [facility] 09-20-2022 08:00-0400 Systolic blood pressure 118 mm[Hg] DO Ok Vaschak Work Phone: [facility] 09-18-2022 08:29-0400 Body height 157.48 cm DO Ok Giacomok Work Phone: [facility] 09-18-2022 08:29-0400 Body weight 72.57 kg DO Ok Giacomok Work Phone: [facility] 08-10-2022 17:06-0400 Diastolic blood pressure 78 mm[Hg] DO Ok Charleschak Work Phone: [facility] 08-10-2022 17:06-0400 Heart rate 105 /min DO Ok Giacomok Work Phone: [facility] 08-10-2022 17:06-0400 Systolic blood pressure 133 mm[Hg] DO Ok Charleschak Work Phone: [facility] 08-10-2022 17:00-0400 Respiratory rate 16 /min DO Ok Charleschak Work Phone: [facility] 08-10-2022 16:38-0400 SaO2% (BldA) [Mass fraction] 98 % DO Ok Charleschak Work Phone: [facility] 11-25-2021 23:45-0400 Diastolic blood pressure 71 mm[Hg] Rayray Aquino [facility] 11-25-2021 23:45-0400 Heart rate 77 /min Rayray Kenia [facility] 11-25-2021 23:45-0400 Hourly Rounding Rayray Kenia [facility] 11-25-2021 23:45-0400 Respiratory rate 18 /min Rayray Kenia [facility] 11-25-2021 23:45-0400 SaO2% (BldA) [Mass fraction] 100 % Rayray Kenia [facility] 11-25-2021 23:45-0400 Systolic blood pressure 105 mm[Hg] Rayray Kenia [facility] 11-25-2021 22:00-0400 Diastolic blood pressure 83 mm[Hg] Rayray Kenia [facility] 11-25-2021 22:00-0400 Heart rate 69 /min Rayray Kenia [facility] 11-25-2021 22:00-0400 Hourly Rounding Rayray Kenia [facility] 11-25-2021 22:00-0400 Respiratory rate 14 /min Rayray Kenia [facility] 11-25-2021 22:00-0400 Systolic blood pressure 123 mm[Hg] Rayray Kenia [facility] 11-25-2021 19:00-0400 Body temperature 98.42 [degF] Rayray Kenia [facility] 11-25-2021 19:00-0400 Diastolic blood pressure 81 mm[Hg] Rayray Kenia [facility] 11-25-2021 19:00-0400 Heart rate 79 /min Rayray Kenia [facility] 11-25-2021 19:00-0400 Hourly Rounding Rayray Kenia [facility] 11-25-2021 19:00-0400 Respiratory rate 12 /min Rayray Kenia [facility] 05-30-2021 12:44-0400 Body height 160 cm Terence Pyle Work Phone: TW-Bqxiuctuq-Xcipwxq y H DO Work Phone: 05-30-2021 12:44-0400 Body mass index (BMI) [Ratio] 19.65 kg/m2 Terence Pyle Work Phone: RK-Yzvyxknut-Hchamjt y H DO Work Phone: 05-30-2021 12:44-0400 Body surface area Derived from formula 1.5 m2 Terence Pyle Work Phone: ND-Rzzyhrqpz-Rasoekn y H DO Work Phone: 05-30-2021 12:44-0400 Body temperature 98.5 [degF] Terence Pyle Work Phone: KX-Jrgornvkb-Fckjijf y H DO Work Phone: 05-30-2021 12:44-0400 Body weight 50.3 kg Terence Pyle Work Phone: FI-Lfuwkwpnz-Grczbbv y H DO Work Phone: 05-30-2021 12:44-0400 Diastolic blood pressure 74 mm[Hg] Terence Pyle Work Phone: LF-Arzldutcr-Wnxxmhu y H DO Work Phone: 05-30-2021 12:44-0400 Heart rate 74 /min Terence Pyle Work Phone: JC-Smronnoik-Irgfhsb y H DO Work Phone: 05-30-2021 12:44-0400 Systolic blood pressure 120 mm[Hg] Terence Pyle Work Phone: XI-Pbojzuvdn-Hjaqmru y H DO Work Phone: 05-17-2021 23:00-0400 Diastolic blood pressure 61 mm[Hg] [facility] 05-17-2021 23:00-0400 Heart rate 81 /min [facility] 05-17-2021 23:00-0400 SaO2% (BldA) [Mass fraction] 97 % [facility] 05-17-2021 23:00-0400 Systolic blood pressure 106 mm[Hg] [facility] 05-17-2021 20:48-0400 Body temperature 98.6 [degF] [facility] 05-17-2021 20:48-0400 Diastolic blood pressure 83 mm[Hg] [facility] 05-17-2021 20:48-0400 Heart rate 97 /min [facility] 05-17-2021 20:48-0400 Respiratory rate 16 /min [facility] 05-17-2021 20:48-0400 SaO2% (BldA) [Mass fraction] 98 % [facility] 05-17-2021 20:48-0400 Systolic blood pressure 128 mm[Hg] [facility] 04-04-2021 14:45-0500 Body height 157.48 cm Albert White Other [employer] Other 04-04-2021 14:45-0500 Body mass index (BMI) [Ratio] 20.3 kg/m2 Albert White Other [employer] Other 04-04-2021 14:45-0500 Body temperature 100 [degF] Albert White Other [employer] Other 04-04-2021 14:45-0500 Body weight 50.35 kg Albert White Other [employer] Other 04-04-2021 14:45-0500 Respiratory rate 16 /min Albert White Other [employer] Other 04-04-2021 14:45-0500 SaO2% (BldA) [Mass fraction] 99 % Albert White Other [employer] Other 2021 10:00-0500 Body height 157.48 cm Pankaj Berger Other [employer] Other 2021 10:00-0500 Body mass index (BMI) [Ratio] 20.3 kg/m2 Pankaj Berger Other [employer] Other 2021 10:00-0500 Body weight 50.35 kg Pankaj Hopeangela Other [employer] Other 2021 10:00-0500 Diastolic blood pressure 67 mm[Hg] Pankaj Berger Other [employer] Other 2021 10:00-0500 Systolic blood pressure 108 mm[Hg] Pankaj Berger Other [employer] Other 12-13-2020 13:10-0400 Body height 157.48 cm Chacho Domingo Other [employer] Other 12-13-2020 13:10-0400 Body mass index (BMI) [Ratio] 21.03 kg/m2 Chacho Domingo Other [employer] Other 12-13-2020 13:10-0400 Body temperature 98.4 [degF] Chacho Domingo Other [employer] Other 12-13-2020 13:10-0400 Body weight 52.16 kg Chacho Domingo Other [employer] Other 12-13-2020 13:10-0400 Diastolic blood pressure 81 mm[Hg] Chacho Domingo Other [employer] Other 12-13-2020 13:10-0400 SaO2% (BldA) [Mass fraction] 100 % Chacho Domingo Other [employer] Other 12-13-2020 13:10-0400 Systolic blood pressure 127 mm[Hg] Chacho Domingo Other [employer] Other 11-19-2020 13:15-0400 Body height 157.48 cm Albert White Other [employer] Other 11-19-2020 13:15-0400 Body mass index (BMI) [Ratio] 20.12 kg/m2 Albert White Other [employer] Other 11-19-2020 13:15-0400 Body temperature 98.9 [degF] Albert White Other [employer] Other 11-19-2020 13:15-0400 Body weight 49.9 kg Albert White Other [employer] Other 11-19-2020 13:15-0400 Diastolic blood pressure 91 mm[Hg] Albert White Other [employer] Other 11-19-2020 13:15-0400 SaO2% (BldA) [Mass fraction] 100 % Albert White Other [employer] Other 11-19-2020 13:15-0400 Systolic blood pressure 149 mm[Hg] Albert White Other [employer] Other 11-06-2020 15:00-0400 Body weight 51.26 kg Pankaj Berger Other [employer] Other 08-30-2020 13:02-0400 Body weight 56 kg Terence Pyle Work Phone: LH-Viuukgenvr-Buanyt nds Work Phone: 08-30-2020 13:02-0400 42 1 Terence Pyle Work Phone: KS-Jgrxhxrfqn-Exreyv nds Work Phone: Comment on above: 2-20_WPerc 11-05-2019 12:33-0400 BMI (Body Mass Index) 22.76 kg/m2 Chica Haim SQ-Erkklicppb-Hobwhd ogy-Admin RBC 585 Work Phone: 11-05-2019 12:33-0400 Body weight 56.81 kg Chica Haim ST-Tujewlaamt-I eurol ogy-Admin RBC 585 Work Phone: 11-05-2019 12:33-0400 BP Diastolic 77 mm[Hg] Chica Haim AC-Jncwwpzero-C eurol ogy-Admin RBC 585 Work Phone: 11-05-2019 12:33-0400 BP Systolic 127 mm[Hg] Chica Haim KC-Erqjdlyury-X eurol ogy-Admin RBC 585 Work Phone: 11-05-2019 12:33-0400 BSA (Body Surface Area) 1.57 m2 Chica Haim MO-Ywienznfjq-Glsxie ogy-Admin RBC 585 Work Phone: 11-05-2019 12:33-0400 Height 158 cm Chica Haim GX-Vofpgulkaq-X eurol ogy-Admin RBC 585 Work Phone: 11-05-2019 12:33-0400 21 1 Chica Haim NU-Extxcbqrrh-B eurol ogy-Admin RBC 585 Work Phone: Comment on above: 2-20 Stature Percentile 11-05-2019 12:33-0400 49 1 Chica Haim DS-Oruzikrzvr-C eurol ogy-Admin RBC 585 Work Phone: Comment on above: 2-20 Weight Percentile 11-05-2019 12:33-0400 64 1 Chica Haim JO-Tdpxwnjnzf-G eurol ogy-Admin RBC 585 Work Phone: Comment on above: BMI Percentile 08-25-2019 12:37-0400 BMI (Body Mass Index) 22.79 kg/m2 Chica Haim QM-Gffictfixz-Vcjibt og-Admin RBC 585 Work Phone: 08-25-2019 12:37-0400 Body weight 56.9 kg Chica Haim KS-Skvzjlglle-C eurol og-Admin RBC 585 Work Phone: 08-25-2019 12:37-0400 BP Diastolic 76 mm[Hg] Chica Haim QF-Qddgpgosxg-W eurol og-Admin RBC 585 Work Phone: 08-25-2019 12:37-0400 BP Systolic 126 mm[Hg] Chica Haim LA-Snivfbdkkk-B eurol og-Admin RBC 585 Work Phone: 08-25-2019 12:37-0400 BSA (Body Surface Area) 1.57 m2 Chica Haim QS-Gyjezanebp-Qjwlyd og-Admin RBC 585 Work Phone: 08-25-2019 12:37-0400 Height 158 cm Chica Haim DS-Ukxwnitawa-Y eurol og-Admin RBC 585 Work Phone: 08-25-2019 12:37-0400 21 1 Chica Whitmore HL-Bwayjxwqfx-P eurol og-Admin RBC 585 Work Phone: Comment on above: 2-20 Stature Percentile 08-25-2019 12:37-0400 51 1 Chica Whitmore UQ-Uyhzigkrsx-S eurol og-Admin RBC 585 Work Phone: Comment on above: 2-20 Weight Percentile 08-25-2019 12:37-0400 65 1 Chica Whitmore XA-Ytyrpvomkj-L eurol og-Admin RBC 585 Work Phone: Comment on above: BMI Percentile Encounters Encounter Date Encounter Type Care Provider Facility Start: 04-22-2024 End: 04-22-2024 flow sheet Linda MITCHELL Work Phone: [facility] Comment on above: 34 weeks gestation o f ; Third trimester ; size inconsistent with dates; Gestational diabetes mellitus (GDM), antepartum, gestational diabetes method of control unspecified Start: 04-22-2024 End: 04-22-2024 ambulatory LINDA ROBERT Not Available Start: 04-22-2024 End: 04-22-2024 Bamboo flowsheet Linda MITCHELL Work Phone: [facility] Start: 04-22-2024 End: 04-22-2024 Bamboo flowsheet Linda MITCHELL Work Phone: [facility] Start: 04-22-2024 End: 04-22-2024 Clinisync Result Encounter Generic External Data Provider [facility] External Department Unsolicited Start: 04-08-2024 End: 04-08-2024 Office outpatient visit [...] encounter procedure Ok Tyson DO Work Phone: [facility] Labor and Delivery Work Phone: Start: 03-25-2024 End: 03-25-2024 ambulatory Ok Tyson DO Work Phone: [facility] Work Phone: Start: 03-25-2024 End: 03-25-2024 Emergency department patient visit Ok Tyson DO Work Phone: [facility]Emergency Room Work Phone: Start: 03-11-2024 [...] Start: 02-25-2024 End: 02-25-2024 Bamboo flowsheet Navid Cantu DO Work Phone: [facility] Start: 02-21-2024 End: 02-21-2024 Clinisync Result Encounter Linda Randall PA Work Phone: [facility] External Department Unsolicited Start: 02-21-2024 End: 02-21-2024 Clinisync Result Encounter Linda Yesica PA Work Phone: [facility] External Department Unsolicited Start: 02-09-2024 End: 02-09-2024 Office outpatient visit 15 minutes Rahel Molina BACK TUFTER Work Phone: [facility] Comment on above: Acute non-recurrent pansinusitis (Primary Dx); Fever, unspecified fever cause Start: 02-09-2024 End: 02-09-2024 ambulatory RAHEL MOLINA Not Available Start: 01-22-2024 End: 01-22-2024 Office outpatient visit 15 minutes Linda Yesica PA Work Phone: [facility] Comment on above: Second trimester pre gnancy; 21 weeks gestation of ; Diabetes mellitus screening Start: 01-22-2024 End: 01-22-2024 ambulatory LINDA ROBERT Not Available Start: 01-22-2024 End: 01-22-2024 Bamboo flowsheet Linda MITCHELL Work Phone: [facility] Start: 01-22-2024 End: 01-22-2024 Bamboo flowsheet Linda MITCHELL Work Phone: [facility] Start: 01-12-2024 End: 01-12-2024 Periodic preventive med est patient 18-39 yrs Ok Tyson DO Work Phone: [facility] Comment on above: Wellness examination (Primary Dx); Right leg pain; Celiac disease (CMS/HCC); Acquired right calf asymmetry Start: 01-12-2024 End: 01-12-2024 ambulatory OK TYSON Not Available Start: 01-12-2024 End: 01-12-2024 Patient encounter status Ok Tyson DO Work Phone: [facility] Start: 01-03-2024 End: 01-03-2024 Patient encounter procedure Ok Tyson DO Work Phone: [facility] [place] Work Phone: Start: 01-03-2024 End: 01-03-2024 ambulatory Yaritza Gonzalez Facility:[facility] Start: 01-02-2024 End: 01-02-2024 Office outpatient visit 25 minutes Yaritza Gonzalez BACK TUFTER Work Phone: [facility] Comment on above: Pain of left calf (P rimary Dx); Swelling of calf Start: 01-02-2024 End: 01-02-2024 ambulatory YARITZA GONZALEZ Not Available Start: 12-24-2023 End: 12-24-2023 Patient encounter procedure Navid Navaso DO Work Phone: [facility] Work Phone: Start: 12-24-2023 End: 12-24-2023 Periodic preventive med est patient 18-39 yrs Navid Alondra DO Work Phone: [facility] Comment on above: Well woman exam with routine gynecological exam; Second trimester ; 17 weeks gestation of ; Vaginal discharge; STD exposure; Screening, , for anatomic survey; Upper respiratory tract infection, unspecified type Start: 12-24-2023 End: 12-24-2023 ambulatory NAVID NAVASO Not Available Start: 12-24-2023 End: 01-02-2024 Clinisync Result Encounter Generic External Data Provider [facility] External Department Unsolicited Start: 12-24-2023 End: 01-02-2024 Clinisync Result Encounter Generic External Data Provider [facility] External Department Unsolicited Start: 12-24-2023 End: 12-26-2023 External Result Encounter Navid Alondra DO Work Phone: [facility] External Department Unsolicited Start: 12-24-2023 End: 12-24-2023 Office outpatient visit 25 minutes Suzan Patrick BACK TUFTER Work Phone: [facility] Comment on above: Acute bronchitis, un [...] Department Unsolicited Start: 10-23-2023 End: 10-23-2023 ambulatory LINDA ROBERT Not Available Start: 10-23-2023 End: 10-23-2023 Office outpatient visit 5 minutes [facility] Alondra Nurse [facility] Comment on above: GA: 8w5d Start: 08-06-2023 End: 08-06-2023 ambulatory TERENCE TOLENTINO Not Available Start: 07-04-2023 End: 07-04-2023 ambulatory DO Ok Tyson Work Phone: [facility] Work Phone: Start: 07-04-2023 End: 07-04-2023 Patient encounter procedure DO Ok Tyson Work Phone: [facility] Work Phone: Start: 06-18-2023 End: 06-18-2023 ambulatory OK TYSON Not Available Start: 06-07-2023 Non-patient / Non-visit DO Guillermo kaia Marbella Work Phone: [facility] Work Phone: Start: 06-02-2023 End: 06-02-2023 ambulatory TERENCE A VISCI Not Available Start: 05-31-2023 End: 05-31-2023 Patient encounter procedure DO Ok Marbella Work Phone: [facility]Electrodiagnostics Work Phone: Start: 05-31-2023 End: 05-31-2023 ambulatory DO Ok Marbella Work Phone: [facility] Work Phone: Start: 05-23-2023 End: 05-23-2023 ambulatory TERENCE A VISCI Not Available Start: 05-14-2023 End: 05-14-2023 ambulatory RAHEL NAPOLESBORIS Not Available Start: 09-23-2022 End: 09-23-2022 ambulatory DO Ok Tyson Work Phone: [facility] Work Phone: Start: 09-23-2022 End: 09-23-2022 Patient encounter procedure DO Ok Tyson Work Phone: [facility] Work Phone: Start: 09-18-2022 End: 09-20-2022 Evaluation and management of inpatient DO Ko Marbella Work Phone: [facility] [place] Work Phone: Start: 09-03-2022 End: 09-03-2022 Departed Referred DO Ok Charlesisabela Work Phone: [facility] [place] Work Phone: Start: 08-10-2022 End: 08-10-2022 ambulatory DO Ok Giacomodrake Work Phone: [facility] Work Phone: Start: 08-10-2022 End: 08-10-2022 Patient encounter procedure DO Ok Charlesisabela Work Phone: [facility] Labor - O/P Start: 11-25-2021 End: 11-26-2021 Emergency department patient visit Rayray Aquino Facility[place] Start: 11-25-2021 End: 11-25-2021 Emergency department patient visit Rayray Aquino [facility] Start: 10-09-2021 End: 10-09-2021 Patient encounter procedure DO Ok Tyson Work Phone: [facility] Start: 09-23-2021 End: 09-23-2021 ambulatory Pankaj Berger Other [employer] Other Start: 09-23-2021 Telephone encounter Pankaj STONE [facility] Start: 09-18-2021 End: 09-18-2021 ambulatory Pankaj Berger Other [employer] Other Start: 09-18-2021 Telephone encounter Pankaj STONE [facility] Start: 09-13-2021 End: 09-13-2021 Patient encounter procedure DO Ok Charlesisabela Work Phone: [facility] Start: 09-03-2021 Rx Renewal Terence Eugene er Work Phone: RX-Jszfmnmaeu-Pxylex 220 Work Phone: Start: 08-20-2021 End: 08-20-2021 Patient encounter procedure DO Ok Charlesisabela Work Phone: [facility]Electrodiagnostics Start: 07-03-2021 End: 07-03-2021 ambulatory Pankaj Berger Other [employer] Other Start: 07-03-2021 Telephone encounter Pankaj Serrano [facility] Start: 06-11-2021 End: 06-11-2021 ambulatory Pankaj Berger Other [employer] Other Start: 06-11-2021 Telephone encounter Pankaj Serrano [facility] Start: 06-02-2021 Rx Renewal Terence Eugene er Work Phone: NK-Xdnwbndmyx-Dohrrxnhf-Ad min RBC 585 Work Phone: Start: 05-30-2021 ambulatory Terence Pyle Facility: Start: 05-30-2021 Office outpatient vi sit 15 minutes Terence Pyle Work Phone: WN-Eyuigmsusz-Imvwhfwoh-Ad min RBC 585 Work Phone: Start: 05-30-2021 Patient encounter procedure Terence Pyle Work Phone: WM-Slqfmyxsg-Lywjdikn H DO Work Phone: Start: 05-17-2021 End: 05-17-2021 Emergency department patient visit Bipin Liseth [facility] Start: 05-11-2021 Telephone encounter Terence Pyle Work Phone: JA-Foxlsitugw-Hfruguptxzi 425 Work Phone: Start: 04-27-2021 End: 04-27-2021 ambulatory Pankaj Berger Other [employer] Other Start: 04-27-2021 Telephone encounter Pankaj eSrrano [facility] Start: 04-09-2021 AUDIT Terence Eugene er Work Phone: QW-Xbpaefywjw-Uzwkwibjnce 220 Work Phone: Start: 04-06-2021 End: 04-06-2021 ambulatory Albert White Other [employer] Other Start: 04-06-2021 Telephone encounter Albert Byrnes [facility] [address] Start: 04-05-2021 End: 04-05-2021 ambulatory Pankaj Berger Other [employer] Other Start: 04-05-2021 Telephone encounter Pankaj Serrano [facility] Start: 04-04-2021 End: 04-04-2021 ambulatory Albert White Other [employer] Other Start: 04-04-2021 Office outpatient vi sit 15 minutes Albert White [facility] Start: 04-03-2021 End: 04-03-2021 ambulatory Pankaj Berger Other [employer] Other Start: 04-03-2021 Telephone encounter Pankaj Serrano [facility] Start: 03-30-2021 End: 03-30-2021 ambulatory Pankaj Berger Other [employer] Other Start: 03-30-2021 Telephone encounter Pankaj Serrano [facility] Start: 03-26-2021 Rx Renewal Terence Eugene er Work Phone: EB-Cdktzfpjes-Uflbrlld 1600 Work Phone: Start: 03-22-2021 ambulatory Terence Pyle Facility:[id number] Start: 03-22-2021 Office outpatient vi sit 15 minutes Terence Pyle Work Phone: IB-Flcmztrsnc-Ytuzlbmhj-Ad min RBC 585 Work Phone: Start: 03-22-2021 Patient encounter procedure Terence Pyle Work Phone: AL-Jbjwxjqzqd-Wwrpwa 220 Work Phone: Start: 2021 End: 2021 ambulatory Pankaj Berger Other [employer] Other Start: 2021 Patient encounter procedure Pankaj Berger [facility] Start: 03-07-2021 End: 03-07-2021 ambulatory Pankaj Berger Other [employer] Other Start: 03-07-2021 Telephone encounter Pankaj STONE [facility] Start: 02-15-2021 End: 02-15-2021 ambulatory Pankaj Berger Other [employer] Other Start: 02-15-2021 Telephone encounter Pankaj STONE [facility] Start: 02-12-2021 End: 02-12-2021 ambulatory Brenda Ginty Other [employer] Other Start: 02-12-2021 Office outpatient vi sit 5 minutes Brenda Nathaniel [facility] Start: 12-20-2020 End: 12-20-2020 ambulatory Pankaj Berger Other [employer] Other Start: 12-20-2020 Telephone encounter Pankaj STONE [facility] Start: 12-14-2020 (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) 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 Laura Byrnes [facility] Start: 12-14-2020 End: 12-14-2020 ambulatory Laura Day Other [employer] Other Start: 12-13-2020 End: 12-13-2020 ambulatory Chacho Domingo Other [employer] Other Start: 12-13-2020 Office outpatient vi sit 15 minutes Chacho Domingo [facility] Start: 12-11-2020 End: 12-11-2020 ambulatory Pankaj Berger Other [employer] Other Start: 12-11-2020 Telephone encounter Pankaj STONE [facility] Start: 11-28-2020 AUDIT Terence R [place] er Work Phone: VW-Oajiiszygh-Akgxrlace-Ad min RBC 585 Work Phone: Start: 11-27-2020 Telephone encounter Pankaj Janeemiladisangela [facility] Start: 11-21-2020 Telephone encounter Pankaj Janeerolan [facility] Start: 11-19-2020 Office outpatient vi sit 15 minutes Albert White [facility] Start: 11-08-2020 Telephone encounter Pankaj Janeemiladisangela [facility] Start: 11-06-2020 Patient encounter procedure Pankaj Berger [facility] Start: 09-27-2020 AUDIT Terence R [place] er Work Phone: UE-Sxgbtkgcys-Ydbohrzzz Work Phone: Start: 08-30-2020 Office outpatient vi sit 15 minutes Terence Pyle Work Phone: XC-Nsrayqxbke-Hydwooism Work Phone: Start: 08-22-2020 AUDIT Terence R [place] er Work Phone: OU-Ntmcalixha-Fdrirnqfl-Ad min RBC 585 Work Phone: Start: 07-19-2020 Rx Renewal Terence R [place] er Work Phone: AG-Dvcpeodnqa-Yhjrskylz-Ad min RBC 585 Work Phone: Start: 03-29-2020 Patient encounter procedure Chica Whitmore SET ILLUSTRATOR-REMARKETING MANAGER, SET ILLUSTRATOR-TRANSITION ADVISOR FW-Zacohqegep-Qjykfppg 1600 Work Phone: Start: 12-29-2019 Patient encounter procedure Chica Whitmore SET ILLUSTRATOR-REMARKETING MANAGER, SET ILLUSTRATOR-TRANSITION ADVISOR WI-Mjuhauykec-Rybrmvuc 1600 Work Phone: Start: 12-24-2019 End: 12-24-2019 Patient encounter procedure Bree (Bakery Team Member) Aleshia Work Phone: [facility] Start: 12-24-2019 Results Only Bree (Bakery Team Member) Aleshia Work Phone: Colorectal Surgery Start: 12-10-2019 End: 12-10-2019 Orders Only Bree (Bakery Team Member) Aleshia Work Phone: Gastroenterology Comment on above: Constipation, unspec ified constipation type (Primary Dx) Start: 11-05-2019 Patient encounter procedure Chica Whitmore RU-Jtwpytklvs-Imakothmq-Ad min RBC 585 Work Phone: Start: 08-25-2019 Patient encounter procedure Chica Whitmore UP-Idtitlqzgn-Ukipbqpm-Adm in RBC 585 Work Phone: Start: 04-28-2019 Patient encounter procedure Chica Whitmore NG-Buqbwokmvt-Jvamrpps-Adm in RBC 585 Work Phone: Start: 12-30-2018 Patient encounter procedure Chica Whitmore CO-Kpfqmhigms-Ceoxyrgwu Work Phone: Start: 09-30-2018 Patient encounter procedure Chica Whitmore IM-Tfgcsxievo-Ovdfqtejj Work Phone: Start: 04-29-2018 Patient encounter procedure Chica Whitmore KI-Olzkqbcapa-Cmfcntvdp Work Phone: Start: 01-28-2018 Patient encounter procedure Chica Whitmore FI-Aardsyfktt-Qytoplnlp Work Phone: Start: 11-07-2017 Patient encounter procedure Chica Whitmore ZQ-Gkczftyogp-Qpeglcvzh Work Phone: Start: 08-01-2017 Patient encounter procedure Chica Whitmore UU-Expwltjiqj-Owtvrdijf Work Phone: Start: 05-02-2017 Patient encounter procedure Chica Whitmore DB-Bbfmowxctw-Qsaryuqne Work Phone: Procedures Date Procedure Procedure Detail Performing Clinician Start: 04-22-2024 US OB BPP W NON-STRESS Generic Ext ernal Data Provider Start: 04-22-2024 Urnls dip stick/tablet rgnt non-auto w/o micrscp Linda MITCHELL Work Phone: Start: 04-08-2024 Urnls dip stick/tablet rgnt non-auto w/o micrscp Linda MITCHELL Work Phone: Start: 03-11-2024 Urnls dip stick/tablet rgnt non-auto w/o micrscp Navid Alondra DO Work Phone: Start: 02-25-2024 Urnls dip stick/tablet rgnt non-auto w/o micrscp Linda MITCHELL Work Phone: Start: 02-21-2024 ALL CBC WITH AUTO DIFF Generic External Data Provider Start: 02-09-2024 STATUS COVID-19/FLU Rahel Molina BACK TUFTER Work Phone: Start: 01-22-2024 Urnls dip stick/tablet rgnt non-auto w/o micrscp Linda MITCHELL Work Phone: Start: 01-03-2024 Comprehensive metabolic panel Yaritza Gonzalez BACK TUFTER Work Phone: Start: 01-03-2024 HEMOGRAM CBC WITHOUT DIFF ([facility]) Yaritza Gonzalez BACK TUFTER Work Phone: Start: 12-24-2023 RECURRENT VAGINITIS (HTRX) [...] Start: 12-24-2019 PT ED PATIENT INFORMATION Bree Remedios) Aleshia Work Phone: Start: 11-05-2019 IO EKG Electrocardiogram- 12 Lead Almaz en Haim Colonoscopy Astrit Hajdari Esophagogastroduodenoscopy A strit Hajairoari Urine culture DO [place] Work Phone: Plan of Treatment Date Care Activity Detail Author Start: 05-06-2024 End: 05-06-2024 Patient encounter procedure 05/06/2024 10:00 AM EDT Routine [facility] [address] [facility] [place] [id number] Navid Cantu, DO [facility] [address], [place] [address] [facility] Start: 05-06-2024 End: 05-06-2024 Professional / ancillary services management [facility] Start: 04-27-2024 End: 04-27-2024 Patient encounter procedure 04/27/2024 3:00 PM EDT Routine [facility] [address] [place] [phone] Navid Cantu, DO [address], [place] [address] [facility] Start: 04-22-2024 End: 04-22-2024 Patient encounter procedure [facility] Comment on above: Arrived Start: 04-22-2024 End: 04-22-2025 US for US OB follow up transabdominal approach Imaging Routine 34 weeks gestation of size inconsistent with dates Gestational diabetes mellitus (GDM), antepartum, gestational diabetes method of control unspecified Expected: 04/22/2024, Expires: 04/22/2025 [facility] Work Phone: Comment on above: Expected: 04/22/2024 , Expires: 04/22/2025 Start: 04-08-2024 End: 04-08-2024 Patient encounter procedure 04/08/2024 3:30 PM EST Routine [facility] [address] [facility] [phone] Linda Robert PA [address] [place] [address] [place] [address] [facility] Start: 04-08-2024 End: 04-08-2024 Professional / ancillary services management 04/08/2024 3:00 PM EST Ancillary Procedure [facility] [address] [facility] [facility] [phone] [facility] Start: 03-25-2024 End: 03-25-2024 Patient encounter procedure 03/25/2024 3:40 PM EST Routine [facility] [address] [facility] [facility] [phone] Linda Robert PA [address] [place] [address] [place] [address] [facility] Start: 03-25-2024 [facility] Start: 03-25-2024 Hospital admission [facility] Start: 03-11-2024 End: 03-11-2025 US for [...] PM EST Routine [facility] [address] [facility] [facility] [address] Navid Cantu DO [address] [facility] [place] [address] [facility] Start: 02-25-2024 End: 02-24-2025 [...] [address] [place] [address] Ok Tyson DO [address] [place] [address] [facility] Start: 12-24-2023 End: 12-24-2023 Patient encounter procedure 12/24/2023 3:40 PM EST Routine [facility] [address] [facility] [phone] Navid Cantu, DO [address] [facility] [place] [address] [facility] Start: 12-24-2023 End: 06-22-2024 Alpha fetoprotein, maternal Alpha fetoprotein, maternal Lab Routine Second trimester 17 weeks gestation of Expected: 12/24/2023 (Approximate), Expires: 06/22/2024 [facility] Comment on above: Expected: 12/24/2023 (Approximate), Expires: 06/22/2024 Start: 12-24-2023 End: 12-23-2024 US for US OB ANATOMY SINGLE W US OB CERVICAL LENGTH Imaging Routine Screening, , for anatomic survey Expected: 12/24/2023 (Approximate), Expires: 12/23/2024 [facility] Comment on above: Expected: 12/24/2023 (Approximate), Expires: 12/23/2024 Start: 11-25-2023 End: 11-25-2023 Patient encounter procedure [facility] Comment on above: Arrived Start: 10-23-2023 End: 10-22-2024 ABO/Rh ABO/Rh Lab Routine Missed menses Expected: 10/23/2023 (Approximate), Expires: 10/22/2024 [facility] Comment on above: Expected: 10/23/2023 (Approximate), Expires: 10/22/2024 Start: 10-23-2023 End: 10-22-2024 Blood type and Indirect antibody screen panel - Blood Type and screen Lab Routine Missed menses Expected: 10/23/2023 (Approximate), Expires: 10/22/2024 [facility] Work Phone: Comment on above: Expected: 10/23/2023 (Approximate), Expires: 10/22/2024 Start: 10-23-2023 End: 10-22-2024 Drugs of abuse panel - Urine by Screen method Rapid drug screen, urine Lab Routine Encounter for supervision of normal first in first trimester , unspecified gestational age Expected: 10/23/2023 (Approximate), Expires: 10/22/2024 [facility] Comment on above: Expected: 10/23/2023 (Approximate), Expires: 10/22/2024 Start: 10-23-2023 End: 10-22-2024 US Pelvis transvaginal US OB transvaginal Imaging Routine Missed menses Expected: 10/23/2023 (Approximate), Expires: 10/22/2024 [facility] Comment on above: Expected: 10/23/2023 (Approximate), Expires: 10/22/2024 Start: 10-12-2023 Influenza vaccination Influenza Vacc ine (#1) [facility] Start: 07-04-2023 [facility] Start: 09-20-2022 [facility] Start: 09-19-2022 Hospital admission [facility] Start: 09-18-2022 Hospital admission [facility] Start: 08-10-2022 [facility] Start: 08-10-2022 Hospital admission [facility] Start: 08-10-2022 Bacteria identified in Urine by Culture Urine Culture [facility] Start: 10-09-2021 End: 10-09-2021 Patient encounter procedure Departed Clinical [facility] Start: 05-30-2021 FUV, Provider: Chica Whitmore, Status: Pen, Time: 12:30 PM FUV, Provider: Chica Whitmore, Status: Pen, Time: 12:30 PM UP-Ibvzhfvyxq-Mcduvy 220 Work Phone: Start: 02-28-2021 FUV, Provider: Chica Whitmore, Status: Pen, Time: 12:30 PM FUV, Provider: Chica Whitmore, Status: Pen, Time: 12:30 PM FL-Bnmzsdakes-Oqvexu ogy-Admin RBC 585 Work Phone: Start: 08-30-2020 FUV, Provider: Chica Whitmore, Status: Pen, Time: 12:30 PM FUV, Provider: Chiac Whitmore, Status: Pen, Time: 12:30 PM JO-Clsjqnxwzo-Ueaokj ogy-Admin RBC 585 Work Phone: Start: 10-12-2019 Influenza vaccination INFLUENZA (#1) [facility] Start: 2019 CHLAMYDIA SCREENING (18-24) CHLAMYDIA SCREENING (18-24) [facility] Start: 2019 GC (GONORRHEA) SCREENING (18-24) GC (GONORRHEA) SCREENING (18-24) [facility] Start: 2019 HEPATITIS C SCREENING HEPATITIS C SC REENING [facility] Start: 2019 HIV SCREENING HIV SCREENING [facility] Start: 2017 MENINGOCOCCAL CONJUG ATE (1 - 2-dose series) MENINGOCOCCAL CONJUGATE (1 - 2-dose series) [facility] Start: 2013 PHQ-A PHQ-A [facility] Start: 2012 HPV VACCINE (1 - 2-d ose series) HPV VACCINE (1 - 2-dose series) [facility] Start: 2008 Urine microalbumin profile DTAP,TDAP,TD (1 - Tdap) [facility] End: 12-09-2020 Anorectal manometry MANOMETRY ANORECTAL Endoscopy Routine Constipation, unspecified constipation type 1 Occurrences starting 12/23/2019 until 12/09/2020 [facility] Comment on above: 1 Occurrences starti ng 12/23/2019 until 12/09/2020 Bacteria identified in Urine by Culture Urine culture Microbiology Routine Missed menses Ordered: 10/23/2023 [facility] Comment on above: Ordered: 10/23/2023 CBC W Auto Different ial panel - Blood CBC and differential Lab Routine Missed menses Ordered: 10/23/[address] [facility] Comment on above: Ordered: 10/23/2023 CHLAMYDIA TRACHOMATI S (GENITO/STI) CHLAMYDIA TRACHOMATIS (GENITO/STI) Lab Routine STD exposure Ordered: 12/24/2023 [facility] Comment on above: Ordered: 12/24/2023 Cytology Cervical or vaginal smear or scraping study Pap Smear Pathology and Cytology Routine Well woman exam with routine gynecological exam Ordered: 12/24/2023 [facility] Comment on above: Ordered: 12/24/2023 Hemoglobin A1c/Hemoglobin.total in Blood Hemoglobin A1c Lab Routine Missed menses Ordered: 10/23/2023 [facility] Comment on above: Ordered: 10/23/2023 Hepatitis B virus surface Ag [Presence] in Serum or Plasma by Immunoassay Hepatitis B surface antigen Lab Routine Missed menses Ordered: 10/23/2023 [facility] Comment on above: Ordered: 10/23/2023 Hepatitis C virus Ab [Presence] in Serum or Plasma by Immunoassay Hepatitis C antibody Lab Routine Missed menses Ordered: 10/23/2023 [facility] Comment on above: Ordered: 10/23/2023 HIV-1/HIV-2 antigen/antibody combination immunoassay HIV-1 and HIV-2 antibodies Lab Routine Missed menses Ordered: 10/23/2023 [facility] Comment on above: Ordered: 10/23/2023 Neisseria gonorrhoea e DNA [Presence] in Unspecified specimen by PAMELA with probe detection Neisseria gonorrhea DNA probe, direct Lab Routine STD exposure Ordered: 12/24/2023 [facility] Comment on above: Ordered: 12/24/2023 Patient Education [facility] Work Phone: Patient referral [facility] Work Phone: PT ED PATIENT INFORMATION PT ED PATIENT INFORMATION Other 12/24/2019 [facility] Reagin Ab [Presence] in Serum by RPR RPR Lab Routine Missed menses Ordered: 10/23/2023 [facility] Comment on above: Ordered: 10/23/2023 Rubella antibody, IgG Rubella an tibody, IgG Lab Routine Missed menses Ordered: 10/23/2023 [facility] Comment on above: Ordered: 10/23/2023 SURESWAB(R) ADVANCED VAGINITIS PLUS, TMA SURESWAB(R) ADVANCED VAGINITIS PLUS, TMA Pathology and Cytology Routine Vaginal discharge Ordered: 12/24/2023 [facility] Work Phone: Comment on above: Ordered: 12/24/2023 [facility] Immunizations Immunization Date Immunization Notes Care Provider Jorge richard 11-11-2022 influenza, injectabl e, quadrivalent, preservative free [facility] Nurse [facility] 11-11-2022 influenza virus vacc ine, unspecified formulation [facility] Nurse [facility] 05-07-2021 pneumococcal polysaccharide vaccine, 23 valent Nom Nurse [facility] 10-25-2020 influenza, injectabl e, quadrivalent, preservative free Terence Pyle Work Phone: SQ-Ctsnaiynez-Expqq a 220 Work Phone: 06-09-2020 COVID-19 mRNA-1273 (Moderna) DO Ok Tyson Work Phone: [facility] 06-06-2020 Moderna COVID-19 Vac cine 100 MCG/0.5ML Intramuscular Suspension Terence Pyle Work Phone: [facility] 05-09-2020 Moderna COVID-19 Vac cine 100 MCG/0.5ML Intramuscular Suspension Terence Pyle Work Phone: RO-Wdeefrgxyz-Keycd ands Work Phone: 10-27-2019 meningococcal B vacc ine, recombinant, OMV, adjuvanted Terence Pyle Work Phone: YS-Ndknyyyely-Jmnxi ands Work Phone: 10-07-2019 influenza, injectabl e, quadrivalent, preservative free [facility] Nurse [facility] 03-04-2018 influenza, injectabl e, quadrivalent, preservative free Terence Pyle Work Phone: FJ-Padrcogobb-Xwcfi ands Work Phone: 03-04-2018 meningococcal B vacc ine, recombinant, OMV, adjuvanted Terence Pyle Work Phone: MU-Rgvolyfbqn-Prugf ands Work Phone: 03-04-2018 meningococcal oligosaccharide (groups A, C, Y and W-135) diphtheria toxoid conjugate vaccine (MCV4O) Terence Pyle Work Phone: SX-Xymkasmfzv-Nmwre ands Work Phone: 10-24-2016 Human Papillomavirus 9-valent vaccine Terence Pyle Work Phone: GU-Rpvbznubqw-Kadko ands Work Phone: 10-02-2016 diphtheria, tetanus toxoids and acellular pertussis vaccine [facility]oms Nurse [facility] 09-28-2015 Human Papillomavirus 9-valent vaccine Terence Pyle Work Phone: YI-Nauyfnxnnv-Qdjsb ands Work Phone: 09-28-2015 meningococcal oligosaccharide (groups A, C, Y and W-135) diphtheria toxoid conjugate vaccine (MCV4O) Terence Pyle Work Phone: QC-Blkqewnhsn-Fuslh ands Work Phone: 08-26-2013 hepatitis A vaccine, pediatric/adolescent dosage, 2 dose schedule eTrence Pyle Work Phone: CA-Pusnvoplgq-Vpiem ands Work Phone: 08-26-2013 tetanus toxoid, redu deisy diphtheria toxoid, and acellular pertussis vaccine, adsorbed Terence Pyle Work Phone: CA-Ladeysyxim-Wxchq ands Work Phone: 01-26-2009 novel Influenza-H1N1 -09, live virus for nasal administration Terence Pyel Work Phone: LX-Fnnqgxsvvk-Pbidt ands Work Phone: 12-28-2008 novel influenza-H1N1 -09, preservative-free, injectable Terence Pyle Work Phone: JG-Geyqgwlxla-Sloez ands Work Phone: 10-02-2006 diphtheria, tetanus toxoids and acellular pertussis vaccine, unspecified formulation Terence Pyle Work Phone: FI-Njytijwjqc-Txqqw ands Work Phone: 10-02-2006 hepatitis A vaccine, unspecified formulation Terence Pyle Work Phone: HC-Yrvrcyqldm-Sceih ands Work Phone: 10-02-2006 measles, mumps and rubella virus vaccine Terence Plye Work Phone: GG-Hwwywfycds-Ibdze ands Work Phone: 10-02-2006 poliovirus vaccine, inactivated Terence Pyle Work Phone: WY-Rovrnnwbzz-Nsljh ands Work Phone: 10-02-2006 varicella virus vaccine Marito Pyle Work Phone: OE-Qsewcjdlvn-Lxnya ands Work Phone: 06-01-2002 diphtheria, tetanus toxoids and acellular pertussis vaccine, unspecified formulation Terence Pyle Work Phone: AC-Okleehroeg-Bgcfw ands Work Phone: 06-01-2002 haemophilus influenz ae type b vaccine, conjugate unspecified formulation Terence Pyle Work Phone: RJ-Vcfuqceiya-Fwbtx ands Work Phone: 06-01-2002 measles, mumps and rubella virus vaccine Terence Pyle Work Phone: UD-Qtgsquwhhy-Hgjou ands Work Phone: 06-01-2002 varicella virus vaccine Marito Pyle Work Phone: ZP-Wjkiedlxsp-Pbksb ands Work Phone: 2001 diphtheria, tetanus toxoids and acellular pertussis vaccine, unspecified formulation Terence Pyle Work Phone: RQ-Atgdyheygj-Coepz ands Work Phone: 2001 haemophilus influenz ae type b conjugate and Hepatitis B vaccine Terence Pyle Work Phone: EZ-Xemaafcbsf-Gujmg ands Work Phone: 2001 pneumococcal conjuga te vaccine, 7 valent Terence Nassarler Work Phone: QZ-Evnebeosgt-Agupg ands Work Phone: 2001 poliovirus vaccine, inactivated Terence Nassarler Work Phone: RV-Hnrdjtliuu-Xehox ands Work Phone: 2001 diphtheria, tetanus toxoids and acellular pertussis vaccine, unspecified formulation Terence Pyle Work Phone: JM-Pjagwlcyqy-Thrzj ands Work Phone: 2001 haemophilus influenz ae type b vaccine, conjugate unspecified formulation Terence Pyle Work Phone: PJ-Evwybflxdw-Rkuab ands Work Phone: 2001 pneumococcal conjuga te vaccine, 7 valent Terence Pyle Work Phone: HP-Blvpvkufzj-Hotkp ands Work Phone: 2001 poliovirus vaccine, inactivated Terence Pyle Work Phone: LD-Phdvveufkx-Noydq ands Work Phone: 2001 diphtheria, tetanus toxoids and acellular pertussis vaccine, unspecified formulation Terence Pyle Work Phone: VU-Jbqcpggfka-Ylfwk ands Work Phone: 2001 haemophilus influenz ae type b conjugate and Hepatitis B vaccine Terence Pyle Work Phone: XG-Rcczuvvyjl-Eicbl ands Work Phone: 2001 poliovirus vaccine, inactivated Terence Pyle Work Phone: EY-Pkbzmkiwur-Ucvjv ands Work Phone: 2001 hepatitis B vaccine, pediatric or pediatric/adolescent dosage Terence Pyle Work Phone: ND-Fmgqvpamgg-Eemvx ands Work Phone: Payers Date Payer Category Payer [facility] [id number] 2024 Unknown [id number] 2024 Unknown [id number] 2023 Self-pay [id number] 2022 Private Health Insurance [employer] [id number] 2022 Unknown [id number] 2.16.840.1.524135.19 2022 Medicaid [id number]. [id number] 2022 Medicaid [id number] 2021 Unknown 2021 Unknown [id number] 2019 Unknown MMO MMO SUPERMED PLUS [id number] 2019-Present PPO [id number]. [id number] 2001 Unknown [id number] 2.16.840.1.940706.3.579.2. 356 2001 Unknown [id number] 2.16.840.1.880036.3.579.2. 727 2001 Unknown [id number] 2.16.840.1.866918.3.579.2. 1259 2001 Unknown [id number] 2.16.840.1.696336.3.579.2. 1259 2001 Unknown [id number] 2.16.840.1.645995.3.579.2. 1258 2001 Unknown [id number] 2.16.840.1.775717.3.579.2. 1258 2001 Unknown [id number] 2.16.840.1.934717.3.579.2. 1258 2001 Unknown [id number] 2.16.840.1.767759.3.579.2. 1258 2001 Unknown [id number] 2.16.840.1.362936.3.579.2. 1258 2001 Unknown [id number] 2.16.840.1.118280.3.579.2. 1258 2001 Unknown [id number] 2.16.840.1.063337.3.579.2. 1258 2001 Unknown [id number] 2.16.840.1.584002.3.579.2. 1258 2001 Unknown [id number] 2.16.840.1.031767.3.579.2. 1258 2001 Unknown [id number] 2.16.840.1.462802.3.579.2. 1258 2001 Unknown [id number] 2.16.840.1.720945.3.579.2. 1258 2001 Unknown [id number] 2.16.840.1.450596.3.579.2. 1258 2001 Unknown [id number] 2.16.840.1.016829.3.579.2. 1258 2001 Unknown [id number] 2.16.840.1.522617.3.579.2. 1258 2001 Unknown [id number] 2.16.840.1.462667.3.579.2. 1258 2001 Unknown [id number] 2.16.840.1.237639.3.579.2. 1258 2001 Unknown [id number] 2.16.840.1.892328.3.579.2. 1259 2001 Unknown [id number] 2.16.840.1.298445.3.579.2. 1259 2001 Unknown [id number] 2.16.840.1.200529.3.579.2. 1259 2001 Unknown [id number] 2.16.840.1.793603.3.579.2. 1259 1974 Unknown [id number] 2.16.840.1.067416.3.579.2. 356 Unknown [id number] Unknown HCAP/HFA/FAP Active [id number] Unknown [id number] 2.16.840.1.937696.3.579.2. 531 Unknown [id number] 2.16.840.1.912333.3.579.2. 531 Unknown [id number] 2.16.840.1.607215.3.579.2. 531 Unknown [id number] 2.16.840.1.335946.3.579.2. 531 Social History Date Type Detail Facility Assertion Unknown if ever smoked [facility]Mover Work Phone: Start: 2001 Sex Assigned At Not on file C [facility] Exposure to SARS-CoV -2 (event) Unable to assess [facility] Start: 10-31-2022 End: 01-12-2024 Lives with parents () Lives with parents () VU-Zsryymwdmm-Hfabookhd- Admin RBC 585 Work Phone: Start: 01-14-2021 End: 07-16-2022 Tobacco smoking status Never smoked tobacco (finding) [facility] Start: 10-31-2022 End: 01-12-2024 Sex Assigned At Female [facility] Other Start: 2001 Sex Assigned At Female F [facility] Tobacco Vaping [facility] Tobacco smoking status No Smokin g Status Entered [facility] Start: 07-16-2022 Tobacco use and exposure Smokeless tobacco non-user [facility] Start: 10-23-2023 End: 04-22-2024 Alcoholic beverage intake Lifetime non-drinker (finding) [facility] How often to you hav e a drink containing alcohol? Never [facility] How many standard drinks containing alcohol do you have on a typical day? Patient does not drink [facility] Start: 07-16-2022 Alcohol Comment caffeine intak e: 1-2 cups per day; coffee [facility] Start: 09-06-2023 [facility] Start: 04-24-2022 Gender identity Identifies as female gender (finding) [facility] Start: 03-25-2024 End: 03-25-2024 Sex Female (finding) [facility] Medical Equipment Procedure Code Equipment Code Equipment Origin al Text Equipment Identifier Dates Capsule endoscopy, for patency of lumen evaluation Video capsule endoscopy system [id number] [facility] Start: 04-25-2021 [id number] Start: 03-08-2024 End: 07-25-2024 1 each by In Vit ro route Daily Use to check FSBS four times daily [id number] Start: 03-08-2024 End: 04-07-2024 Goals Date Patient Goal Desired Activity /State Personal health goal Functional Status Date Assessment Result Facility 09-20-2022 Functional status Patient at Baseline [facility] Work Phone: 11-25-2021 Functional Status N/A [facility] NEGATED: Highlighted row Functional performance Functional status health issues are not documented Disease JH-Ievkjuekno-Jmkwgu nds Work Phone: Mental Status Date Assessment Result Facility 09-20-2022 Cognitive function Cognitive Sta tus Patient at Baseline [facility] Work Phone: NEGATED: Highlighted row Cognitive function [Interpretation] Cognitive status health issues are not documented Disease SU-Ajdwchepim-Xbltqp nds Work Phone: Clinical Notes 08-10-2020 to 04-22-2024 PAULA Lopez 04/22/2024 3:10 PM PAULA Gray - 04/08/2024 3:30 PM PAULA Mark - 03/25/2024 3:40 PM EST Note Date & Type Note Facility 04-22-2024 History of Presen t illness Narrative Reason [...] to check FSBS. Blood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
== END 2024-04-29 22:01 | disposition home or self-care (01) ==
LOC: US 19:59 → FBC 20:02 → US 22:09
PROVIDERS: PCP Internal Medicine; Visit Provider Obstetrics & Gynecology
DX: O24.414 Gestational diabetes mellitus in pregnancy, insulin controlled (principal)
CPT/HCPCS: 36415; 76818; 82565; 82570; 84156; 84450; 84460; 84520; 84550; 85025; 85384; 85610; 85730

== ENCOUNTER 2024-05-03 18:03 | Outpatient (OUT) | payer MEDICAID, SELFPAY ==
[2024-05-03 18:09] VITALS: BP 118/55; PULSE 81
--- OUTSIDE RECORDS SUMMARY | 2024-05-03 18:11 | XMS_ITS | CCD ---
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 High None Seen [facility] Bilirubin Test strip Ql (U)O rdered By: Chicaandra Newman on 04-29-2024 Bilirubin Ql (U) Bilirubin.total [Presence] in Urine by Test strip Negative [facility] Color Auto (U)Ordered By: Sanjeev derrick Paty on 04-29-2024 Color (U) Color of Urine by Auto Yellow [facility] Dipstick and Microscopicon 0 04-29-2024 Appearance (U) Cloudy Critically abnormal Clear The Replaced By [facility] Comment on above: Order Comment: Comme nt c/o urinary symptoms or increased blood pressure Name Collection Type:: Voided Performed By: #### A DDONUAPLUS, CUU #### [facility] [address] [place] [address] [place] Bacteria,Urine 4+ High None Seen [facility] Comment on above: Order Comment: Comme nt c/o urinary symptoms or increased blood pressure Name Collection Type:: Voided Performed By: #### A DDONUAPLUS, CUU #### [facility] [address] [place] [address] [place] Bilirubin,Urine Negative Normal Negative The [facility] Comment on above: Order Comment: Comme nt c/o urinary symptoms or increased blood pressure Name Collection Type:: Voided Performed By: #### A DDONUAPLUS, CUU #### [facility] [address] [place] [address] [place] Color (U) Colorless Normal Yellow The [facility]placed [facility] Comment on above: Order Comment: Comme nt c/o urinary symptoms or increased blood pressure Name Collection Type:: Voided Performed By: #### A DDONUAPLUS, CUU #### [address] Glucose Ql (U) Normal Normal Normal [facility] Comment on above: Order Comment: Comme nt c/o urinary symptoms or increased blood pressure Name Collection Type:: Voided Performed By: #### A DDONUAPLUS, CUU #### [address] Hyaline Casts,Urine 0-8 Normal 0-8 [facility] Comment on above: Order Comment: Comme nt c/o urinary symptoms or increased blood pressure Name Collection Type:: Voided Result Comment: PERF ORMED BY: [place] [address] PATHOLOGIST ROOMING HOUSE OPERATOR SHAHANA BRITTON M.D. Performed By: #### A DDONUAPLUS, CUU #### [address] Ketones Ql (U) Negative Normal Negative [facility] Comment on above: Order Comment: Comme nt c/o urinary symptoms or increased blood pressure Name Collection Type:: Voided Performed By: #### A DDONUAPLUS, CUU #### [address] Leukocyte esterase Test strip Ql (U) 4+ High Negative The [facility]placed [facility] Comment on above: Order Comment: Comme nt c/o urinary symptoms or increased blood pressure Name Collection Type:: Voided Performed By: #### A DDONUAPLUS, CUU #### [place] [address] [place] Nitrite,Urine Negative Normal Negative The [facility] Comment on above: Order Comment: Comme nt c/o urinary symptoms or increased blood pressure Name Collection Type:: Voided Performed By: #### A DDONUAPLUS, CUU #### [address] Occult Blood,Urine Negative Normal Negative The [facility] Comment on above: Order Comment: Comme nt c/o urinary symptoms or increased blood pressure Name Collection Type:: Voided Result Comment: PERF ORMED BY: [place] [address] PATHOLOGIST ROOMING HOUSE OPERATOR SHAHANA BRITTON M.D. Performed By: #### A DDONUAPLUS, CUU #### [address] pH (U) 7.0 [pH] Normal 5.0-9.0 The [facility]placed [facility] Comment on above: Order Comment: Comme nt c/o urinary symptoms or increased blood pressure Name Collection Type:: Voided Performed By: #### A DDONUAPLUS, CUU #### [address] Protein,Urine Negative Normal Negative The [facility] Comment on above: Order Comment: Comme nt c/o urinary symptoms or increased blood pressure Name Collection Type:: Voided Performed By: #### A DDONUAPLUS, CUU #### [address] RBC,Urine 1-2 Normal 0-4 The [facility] Comment on above: Order Comment: Comme nt c/o urinary symptoms or increased blood pressure Name Collection Type:: Voided Performed By: #### A DDONUAPLUS, CUU #### [address] Specificy [place],Urine 1.006 Normal 1.001-1.030 The [facility]placed [facility] Comment on above: Order Comment: Comme nt c/o urinary symptoms or increased blood pressure Name Collection Type:: Voided Performed By: #### A DDONUAPLUS, CUU #### [address] Squamous Epithelial Cell,Urine 10-19 High 0-2 The [facility] Comment on above: Order Comment: Comme nt c/o urinary symptoms or increased blood pressure Name Collection Type:: Voided Performed By: #### A DDONUAPLUS, CUU #### [address] Urobilinogen,Urine Normal Normal Normal The [facility] Comment on above: Order Comment: Comme nt c/o urinary symptoms or increased blood pressure Name Collection Type:: Voided Performed By: #### A DDONUAPLUS, CUU #### [facility] [address] WBC,Urine 5-9 High 0-4 The [facility]placed [facility] Comment on above: Order Comment: Comme nt c/o urinary symptoms or increased blood pressure Name Collection Type:: Voided Performed By: #### A DDONUAPLUS, CUU #### [facility] [address] Epithelial cells.squamous [# /area] in Urine sediment by Automated countOrdered By: Chica Newman on 04-29-2024 Epithelial cells.squamous Auto (Urine sed) [#/Area] Epithelial cells.squamous [#/area] in Urine sediment by Automated count High 0-2 [facility] Erythrocytes [#/area] in Uri ne sediment by Automated countOrdered By: Chica Newman on 04-29-2024 RBC Auto (Urine sed) [#/Area] Erythrocytes [#/area] in Urine sediment by Automated count 0-4 [facility] Glucose [Mass/volume] in Uri ne by Test stripOrdered By: Chica Newman on 04-29-2024 Glucose Test strip (U) [Mass/Vol] Glucose [Mass/volume] in Urine by Test strip Normal [facility] Hemoglobin Test strip Ql (U) Ordered By: Chica Newman on 04-29-2024 Hemoglobin Ql (U) Hemoglobin [Presence] in Urine by Test strip Negative [facility] Hyaline casts [#/area] in Ur ine sediment by Automated countOrdered By: Chica Newman on 04-29-2024 Hyaline casts Auto (Urine sed) [#/Area] Hyaline casts [#/area] in Urine sediment by Automated count 0-8 [facility] Ketones Test strip Ql (U)Ord ered By: Chica Newman on 04-29-2024 Ketones Ql (U) Ketones [Presence] in Urine by Test strip Negative [facility] Leukocyte esterase [Presence ] in Urine by Test stripOrdered By: Chica Newman on 04-29-2024 Leukocyte esterase Test strip Ql (U) Leukocyte esterase [Presence] in Urine by Test strip High Negative [facility] Leukocytes [#/area] in Urine sediment by Automated countOrdered By: Chica Newman on 04-29-2024 WBC Auto (Urine sed) [#/Area] Leukocytes [#/area] in Urine sediment by Automated count High 0-4 [facility] Nitrite Test strip Ql (U)Ord ered By: Chica Newman on 04-29-2024 Nitrite Ql (U) Nitrite [Presence] in Urine by Test strip Negative [facility] Protein Test strip (U) [Mass /Vol]Ordered By: Chica Newman on 04-29-2024 Protein (U) [Mass/Vol] Protein [Mass/volume] in Urine by Test strip Negative [facility] Specific gravity Test strip (U) [Rel density]Ordered By: Chica Newman on 04-29-2024 Specific gravity (U) [Rel density] Specific gravity of Urine by Test strip 1.001-1.030 [facility] Urine Cultureon 04-29-2024 Bacteria identified Cx Nom (U) <9,000 colonies/ml mixed bacterial skin contaminants 2 Days PERFORMED BY: [place] [address] PATHOLOGIST ROOMING HOUSE OPERATOR SHAHANA BRITTON M.D. Normal The Replaced By [facility] Comment on above: Performed By: #### A DDONUAPLUS, CUU #### [address] Urobilinogen Test strip (U) [Mass/Vol]Ordered By: Chica Newman on 04-29-2024 Urobilinogen (U) [Mass/Vol] Urobilinogen [Mass/volume] in Urine by Test strip Normal [facility] pH Test strip (U)Ordered By: Chica Newman on 04-29-2024 pH (U) pH of Urine by Test strip 5.0-9.0 [facility] US OB BPP W NON-STRESS on 04-22-2024 [place] [address] Ultrasound Report Signed Patient: SHIV EVANGELISTA MR#: [id number] : 2000 Acct:[id number] Age/Sex: 24 / F ADM Date: 04/22/24 Loc: US Attending Dr: Navid Cantu D.O. Ordering Physician: Navid Cantu D.O. Date of Service: 04/22/24 Procedure(s): US OB BPP w non-stress Accession Number(s): [id number] cc: Navid Cantu D.O.; [place] [address] Patient Name: SHIV EVANGELISTA MRN: [facility]:[id number] date: 2000 Sex: F Assigned Patient Location: [facility] Current Patient Location: US Accession/Order Number: [id number] Exam Date: 04/22/2024 19:02 Report Date: 04/22/2024 19:04 At the request of: NAVID ACNTU DO Procedure: US OB BPP w non-stress [...] Ferdinand Farr M.D.04/22/2024 7:04 PM Dictation Location: [place] [address] Electronically authenticated by: [id number] Y Date: 04/22/2024 19:04 Dictated By: Ferdinand Farr D.O. Signed By: 04/22/241906 DD/ 03 TD/TT: Nursing Home Social Worker: [facility] Radiology, Radiologist, - 04/22/2024 [place] [address] Ultrasound Report Signed Patient: SHIV EVANGELISTA MR#: [id number] : 2000 Acct:[id number] Age/Sex: 24 / F ADM Date: 04/22/24 Loc: US Attending Dr: Navid Cantu D.O. Ordering Physician: Navid Cantu D.O. Date of Service: 04/22/24 Procedure(s): US OB BPP w non-stress Accession Number(s): [id number] cc: Navid Cantu D.O.; [place] [id number] Patient Name: SHIV EVANGELISTA MRN: [facility]:[id number] date: 2000 Sex: F Assigned Patient Location: [facility] Current Patient Location: US Accession/Order Number: [id number] Exam Date: 04/22/2024 19:02 Report Date: 04/22/2024 [...] Ferdinand Farr M.D.04/22/2024 7:04 PM Dictation Location: [place] [address] Electronically authenticated by: [id number] Y Date: 04/22/2024 19:04 Dictated By: Ferdinand Farr D.O. Signed By: 04/22/241906 DD/ 03 TD/TT: Nursing Home Social Worker: [facility] Radiology Study observation (narrative) [facility] US OB BPP W NON-STRESS Ordered By: Radiologist Radiology on 04-22-2024 [facility] Work Phone: Urinalysis macro (dipstick) panel (U)on 04-22-2024 Bilirubin, UA Negative Negative - 4(70) +++ mg/dL [facility] Blood, UA Negative Negative - 50 Soto/mcL [facility] Clarity, UA Clear [facility] Color, UA Yellow [facility] Glucose, UA Negative Negative - 2000(110) ++++ mg/dL [facility] Interpretation and review of laboratory results Abnormal [facility] Ketones, UA Positive Negative - 160(16) ++++ mg/dL [facility] Comment on above: trace Leukocytes, UA Positive Negative - 500+++ Adarsh/mcL [facility] Comment on above: small Nitrite, UA Negative Negative - Positive [facility] pH, UA 6 5 - 9 [facility] Protein, UA Trace Negative - 1999(20) ++++ mg/dL [facility] Spec Grav, UA 1.03 1 - 1.03 [facility] Urobilinogen, UA 0.2 0.2 - 12 mg/dL [facility] US OB FOLLOW UP TRANSABDOMIN AL APPROACHon [...] to 28 %. VELMA is 06/04/2024. Electronically Signed:Celio y signed by VICTOR M RAY II, MD, PHD at 10-Apr-2024 07:22:07 AM [facility] Normal Not Available Comment on above: Order Comment: US OB SCAN FOR GROWTH Estimated Date of Delivery: 05/29/24 Gestational Age as of 03/11/2024: 28w5d Urinalysis macro (dipstick) panel (U)on 04-08-2024 Bilirubin, UA Negative Negative - 4(70) +++ mg/dL [facility] Blood, UA Negative Negative - 50 Soto/mcL [facility] Clarity, UA Clear [facility] Color, UA Yellow [facility] Glucose, UA Negative Negative - 2000(110) ++++ mg/dL [facility] Interpretation and review of laboratory results Abnormal [facility] Ketones, UA Positive Negative - 160(16) ++++ mg/dL [facility] Leukocytes, UA Moderate Negative - 500+++ Adarsh/mcL [facility] Nitrite, UA Negative Negative - Positive [facility] pH, UA 6 5 - 9 [facility] Protein, UA Negative Negative - 2000(20) ++++ mg/dL [facility] Spec Grav, UA 1.02 1 - 1.03 [facility] Urobilinogen, UA 0.2 0.2 - 12 mg/dL [facility] US OB FOLLOW UP TRANSABDOMIN AL APPROACHon [...] 1188 gm / 2 lbs, 9 oz (6656-0693 gm) [place] Normal: 1331 gm (3768-4182 gm) [place] Wt%: 21% for 28.7 wks [...] report is generated using voice recognition reporting ([employer]). On occasion [employer] erroneously drops words from the report or [...] UA Negative Negative - 4(70) +++ mg/dL [facility] Healthcare Blood, UA Negative Negative - 50 Soto/mcL [facility] Clarity, UA Clear [facility] Color, UA Yellow [facility] Glucose, UA Negative Negative - 1999(110) ++++ mg/dL [facility] Interpretation and review of laboratory results Abnormal [facility] Ketones, UA Negative Negative - 160(16) ++++ mg/dL [facility] Leukocytes, UA Trace Negative - 500+++ Adarsh/mcL [facility] Healthcare Nitrite, UA Negative Negative - Positive [facility] pH, UA 7 5 - 9 [facility] Protein, UA Negative Negative - 1999(20) ++++ mg/dL [facility] Spec Grav, UA 1.015 1 - 1.03 [facility] Urobilinogen, UA 0.2 0.2 - 12 mg/dL [facility] Urinalysis macro (dipstick) panel (U)on 02-25-2024 Bilirubin, UA Negative Negative - 4(70) +++ mg/dL [facility] Blood, UA Negative Negative - 50 Soto/mcL [facility] Clarity, UA Clear [facility] Color, UA Yellow [facility] Glucose, UA Negative Negative - 1999(110) ++++ mg/dL [facility] Interpretation and review of laboratory results Normal [facility] Ketones, UA Negative Negative - 160(16) ++++ mg/dL [facility] Leukocytes, UA Negative Negative - 500+++ Adarsh/mcL [facility] Nitrite, UA Negative Negative - Positive [facility] pH, UA 5.5 5 - 9 [facility] Protein, UA Negative Negative - 1999(20) ++++ mg/dL [facility] Spec Grav, UA 1.03 1 - 1.03 [facility] Urobilinogen, UA 0.2 0.2 - 12 mg/dL [facility] ALL CBC WITH AUTO DIFFon BASOPHILS ABSOLUTE AUTO 0 [facility] Basophils/100 WBC (Bld) 0.6 % 0.2 - 2.0 % [facility] Eosinophils/100 WBC (Bld) 1.4 % 0.9 - 7.0 % [facility] Erythrocyte distribution width (RBC) [Ratio] 12.3 % 11.0 - 15.0 % [facility] Hematocrit (Bld) [Volume fraction] 31.2 % Low 36.0 - 48.0 % [facility] Hemoglobin (Bld) [Mass/Vol] 10.5 g/dL Low 12.0 - 16.0 g/dL [facility] IMMATURE GRANULOCYTES ABS AUTO 0.13 High [facility] Immature granulocytes/100 WBC (Bld) 1.8 % High 0.0 - 0.5 % [facility] Interpretation and review of laboratory results Abnormal [facility] LYMPHOCYTES ABSOLUTE AUTO 1.2 [facility] Lymphocytes/100 WBC (Bld) 17.1 % Low 20.5 - 60.0 % [facility] MCH (RBC) [Entitic mass] 31.5 pg 26.7 - 34.0 pg [facility] MCHC (RBC) [Mass/Vol] 33.7 g/dL 29.9 - 35.2 g/dL [facility] MCV (RBC) [Entitic vol] 93.7 fL 81.0 - 99.0 fL [facility] MONOCYTES ABSOLUTE AUTO 0.5 [facility] Monocytes/100 WBC (Bld) 6.6 % 1.7 - 12.0 % [facility] NEUTROPHILS ABSOLUTE AUTO 5.3 [facility] Neutrophils/100 WBC (Bld) 72.5 % 43.0 - 75.0 % [facility] Platelet mean volume (Bld) [Entitic vol] 9.8 fL 9.5 - 13.5 fL [facility] TBH EO # 0.1 [facility] PLT 194 [facility] TB RBC 3.33 Low [facility] TB WBC 7.3 [facility] Laboratory - Microbiology an d Antimicrobial susceptibilityon 02-09-2024 SARS-CoV-2 (COVID-19) RNA PAMELA+probe Ql (Unsp spec) Negative [facility] No Panel Informationon 02-08 FLU A Negative [facility] FLU B Negative [facility] Urinalysis macro (dipstick) panel (U)on 01-22-2024 Bilirubin, UA Negative Negative - 4(70) +++ mg/dL [facility] Blood, UA Negative Negative - 50 Soto/mcL [facility] Clarity, UA Clear [facility] Color, UA Yellow [facility] Glucose, UA Negative Negative - 1999(110) ++++ mg/dL [facility] Interpretation and review of laboratory results Abnormal [facility] Ketones, UA Negative Negative - 160(16) ++++ mg/dL [facility] Leukocytes, UA 1+ Negative - 500+++ Adarsh/mcL [facility] Comment on above: small Nitrite, UA Negative Negative - Positive [facility] pH, UA 6 5 - 9 [facility] Protein, UA Negative Negative - 1999(20) ++++ mg/dL [facility] Spec Grav, UA 1.02 1 - 1.03 [facility] Urobilinogen, UA 0.2 0.2 - 12 mg/dL [facility] Alanine aminotransferase [En zymatic activity/volume] in Serum or PlasmaOrdered By: Yaritza Gonzalez on 01-03-2024 ALT [Catalytic activity/Vol] Alanine aminotransferase [Enzymatic activity/volume] in Serum or Plasma 52 [facility] Albumin [Mass/volume] in Ser um or Plasma by Bromocresol green (BCG) dye binding methoOrdered By: Yaritza Gonzalez on 01-03-2024 Albumin BCG dye [Mass/Vol] Albumin [Mass/volume] in Serum or Plasma by Bromocresol green (BCG) dye binding metho 3.5-5.7 [facility] Alkaline phosphatase [Enzyma tic activity/volume] in Serum or PlasmaOrdered By: Yaritza Gonzalez on 01-03-2024 ALP [Catalytic activity/Vol] Alkaline phosphatase [Enzymatic activity/volume] in Serum or Plasma 34-104 [facility] Aspartate aminotransferase [ Enzymatic activity/volume] in Serum or PlasmaOrdered By: Yaritza Gonzalez on 01-03-2024 AST [Catalytic activity/Vol] Aspartate aminotransferase [Enzymatic activity/volume] in Serum or Plasma 13-39 [facility] Bilirubin.total [Mass/volume ] in Serum or PlasmaOrdered By: Yaritza Gonzalez on 01-03-2024 Bilirubin [Mass/Vol] Bilirubin.total [Mass/volume] in Serum or Plasma 0.3-1.0 [facility] Calcium [Mass/volume] in Ser um or PlasmaOrdered By: Yaritza Gonzalez on 01-03-2024 Calcium [Mass/Vol] Calcium [Mass/volume] in Serum or Plasma 8.6-10.3 [facility] Carbon dioxide, total [Moles /volume] in Serum or PlasmaOrdered By: Yaritza Gonzalez on 01-03-2024 CO2 [Moles/Vol] Carbon dioxide, total [Moles/volume] in Serum or Plasma 21.0-31.0 [facility] Chloride [Moles/volume] in S camryn or PlasmaOrdered By: Yaritza Gonzalez on 01-03-2024 Chloride [Moles/Vol] Chloride [Moles/volume] in Serum or Plasma 98-107 [facility] Comprehensive Metabolic Pane yaritza 01-03-2024 Albumin [Mass/Vol] 3.8 g/dL Normal 3.5-5.7 [facility] Comment on above: Performed By: #### C MP #### [facility] [address] Albumin/Globulin [Mass ratio] 1.7 {ratio} Normal The Replaced By [facility] Comment on above: Performed By: #### C MP #### [facility] [address] ALP [Catalytic activity/Vol] 34 U/L Normal 34-104 The [facility]placed [facility] Comment on above: Result Comment: PERF ORMED BY: [facility] [address] [place] [address] PATHOLOGIST ROOMING HOUSE OPERATOR SHAHANA BRITTON M.D. Performed By: #### C MP #### [facility] [address] ALT [Catalytic activity/Vol] 9 U/L Normal 7-52 The [facility]placed [facility] Comment on above: Performed By: #### C MP #### [address] Anion gap [Moles/Vol] 8.8 mmol/L Normal 6.0-15.0 The [facility] Comment on above: Performed By: #### C MP #### [address] AST [Catalytic activity/Vol] 18 U/L Normal 13-39 [facility] Comment on above: Performed By: #### C MP #### [address] Bilirubin [Mass/Vol] 0.4 mg/dL Normal 0.3-1.0 [facility] Comment on above: Performed By: #### C MP #### [address] Calcium [Mass/Vol] 8.6 mg/dL Normal 8.6-10.3 [facility] Comment on above: Performed By: #### C MP #### [address] Chloride [Moles/Vol] 106 mmol/L Normal 98-107 The [facility] Comment on above: Performed By: #### C MP #### [address] CO2 [Moles/Vol] 25.6 mmol/L Normal 21.0-31.0 The [facility] Comment on above: Performed By: #### C MP #### [address] Creatinine [Mass/Vol] 0.48 mg/dL Low 0.60-1.20 The [facility] Comment on above: Performed By: #### C MP #### [address] GFR/1.73 sq M.predicted MDRD (S/P/Bld) [Vol rate/Area] mL/min/{1.73_m2} Normal [facility] Comment on above: Performed By: #### C MP #### [address] Globulin (S) [Mass/Vol] 2.2 g/dL Normal T he [facility]placed By [facility] Comment on above: Performed By: #### C MP #### [address] Glucose [Mass/Vol] 70 mg/dL Normal 70-100 [facility] Comment on above: Result Comment: Industry Glucose Reference Range is dependent on time and content of last meal. Glucose of more than 200 mg/dL in a nonstressed, ambulatory subject supports the diagnosis of Diabetes Mellitus. ADA recommended reference range Performed By: #### C MP #### [address] Potassium [Moles/Vol] 4.4 mmol/L Normal 3.5-5.1 The [facility]placed [facility] Comment on above: Performed By: #### C MP #### [address] Protein [Mass/Vol] 6.0 g/dL Low 6.4-8.9 [facility] Comment on above: Performed By: #### C MP #### [address] Sodium [Moles/Vol] 136 mmol/L Normal 136-145 [facility] Comment on above: Performed By: #### C MP #### [address] Urea nitrogen [Mass/Vol] 9 mg/dL Normal 7-25 The [facility]placed [facility] Comment on above: Performed By: #### C MP #### [address] Creatinine [Mass/volume] in Serum or PlasmaOrdered By: Yaritza Gonzalez on 01-03-2024 Creatinine [Mass/Vol] Creatinine [Mass/volume] in Serum or Plasma Low 0.60-1.20 [facility] Erythrocyte distribution wid th Auto (RBC) [Ratio]Ordered By: Yaritza Gonzalez on 01-03-2024 Erythrocyte distribution width (RBC) [Ratio] Erythrocyte distribution width [Ratio] by Automated count 11.9-15.3 [facility] Globulin Calc (S) [Mass/Vol] Ordered By: Yaritza Gonzalez on 01-03-2024 Globulin (S) [Mass/Vol] Serum globulin measurement by calculation (mass/volume) [facility] Glucose [Mass/volume] in Ser um or PlasmaOrdered By: Yaritza Gonzalez on 01-03-2024 Glucose [Mass/Vol] Glucose [Mass/volume] in Serum or Plasma 70-100 [facility] Comment on above: ADA recommended refe rence rangeRandom Glucose Reference Range is dependent on time and content of last meal. Glucose of more than 200 mg/dL in a nonstressed, ambulatory subject supports the diagnosis of Diabetes Mellitus. Hematocrit Auto (Bld) [Volum e fraction]Ordered By: Yaritza Gonzalez on 01-03-2024 Hematocrit (Bld) [Volume fraction] Hematocrit [Volume Fraction] of Blood by Automated count Low 34.0-46.4 [facility] Hemoglobin [Mass/volume] in BloodOrdered By: Yaritza Gonzalez on 01-03-2024 Hemoglobin (Bld) [Mass/Vol] Hemoglobin [Mass/volume] in Blood Low 11.8-15.4 [facility] Hemogram CBC Without Diffon 01-03-2024 Erythrocyte distribution width (RBC) [Ratio] 13.3 % Normal 11.9-15.3 The Replaced By [facility] Comment on above: Performed By: #### C BCNO #### [address] Hematocrit (Bld) [Volume fraction] 32.2 % Low 34.0-46.4 The Replaced By [facility] Comment on above: Performed By: #### C BCNO #### [facility] [address] Hemoglobin (Bld) [Mass/Vol] 11.1 g/dL Low 11.8-15.4 The [facility]placed By [facility] Comment on above: Performed By: #### C BCNO #### [address] MCH (RBC) [Entitic mass] 31.3 pg Normal 24.7-34.3 The [facility]placed By [facility] Comment on above: Performed By: #### C BCNO #### [address] MCV (RBC) [Entitic vol] 90.8 fL Normal 80-100 [facility] Comment on above: Performed By: #### C BCNO #### [address] Mean Corpuscular HGB Conc 34.4 g/dL Normal 32.0-35.0 [facility]placed [facility] Comment on above: Performed By: #### C BCNO #### [address] Platelet mean volume (Bld) [Entitic vol] 8.2 fL Normal 6.3-10.7 [facility] Comment on above: Result Comment: PERF ORMED BY: [place] [address] PATHOLOGIST ROOMING HOUSE OPERATOR SHAHANA BRITTON M.D. Performed By: #### C BCNO #### [address] Platelets (Bld) [#/Vol] 219 10*3/uL Normal 150-450 The Replaced By [facility] Comment on above: Performed By: #### C BCNO #### [address] RBC (Bld) [#/Vol] 3.55 10*6/uL Low 3.60-5.00 [facility] Comment on above: Performed By: #### C BCNO #### [address] WBC (Bld) [#/Vol] 7.2 10*3/uL Normal 3.8-11.6 The [facility] Comment on above: Performed By: #### C BCNO #### [address] Laboratory - Chemistry and C hemistry - challengeon 01-03-2024 Albumin [Mass/Vol] 3.8 g/dL 3.5 - 5.7 g/dL [facility] Albumin/Globulin [Mass ratio] 1.7 {ratio} [facility] ALP [Catalytic activity/Vol] 34 U/L 34 - 104 U/L [facility] ALT [Catalytic activity/Vol] 9 U/L 7 - 52 U/L [facility] Anion gap [Moles/Vol] 8.8 mmol/L 6.0 - 15.0 meq/L [facility] AST [Catalytic activity/Vol] 18 U/L 13 - 39 U/L [facility] Bilirubin [Mass/Vol] 0.4 mg/dL 0.3 - 1 .0 mg/dL [facility] Calcium [Mass/Vol] 8.6 mg/dL 8.6 - 10. 3 mg/dL [facility] Chloride [Moles/Vol] 106 mmol/L 98 - 10 7 mmol/L [facility] CO2 [Moles/Vol] 25.6 mmol/L 21.0 - 31.0 mmol/L [facility] Creatinine (U) [Mass/Vol] 0.48 mg/dL Low 0.60 - 1.20 mg/dL [facility] Globulin (S) [Mass/Vol] 2.2 g/dL [facility] Glucose [Mass/Vol] 70 mg/dL 70 - 100 mg/dL [facility] Comment on above: Random Glucose Refer ence Range is dependent on time and content of last meal. Glucose of more than 200 mg/dL in a nonstressed, ambulatory subject supports the diagnosis of Diabetes Mellitus. ADA recommended reference range Potassium [Moles/Vol] 4.4 mmol/L 3.5 - 5.1 mmol/L [facility] Protein [Mass/Vol] 6 g/dL Low 6.4 - 8.9 g/dL [facility] Sodium [Moles/Vol] 136 mmol/L 136 - 145 mmol/L [facility] Urea nitrogen [Mass/Vol] 9 mg/dL 7 - 25 mg/dL [facility] Laboratory - Hematology and Cell countson 01-03-2024 Erythrocyte distribution width (RBC) [Ratio] 13.3 % 11.9 - 15.3 % [facility] Hematocrit (Bld) [Volume fraction] 32.2 % Low 34.0 - 46.4 % [facility] Hemoglobin (Bld) [Mass/Vol] 11.1 g/dL Low 11.8 - 15.4 g/dL [facility] MCH (RBC) [Entitic mass] 31.3 pg 24.7 - 34.3 pg [facility] MCHC (RBC) [Mass/Vol] 34.4 g/dL 32.0 - 35.0 g/dL [facility] MCV (RBC) [Entitic vol] 90.8 fL 80 - 100 fL [facility] Platelet mean volume (Bld) [Entitic vol] 8.2 fL 6.3 - 10.7 fL [facility] Platelets (Bld) [#/Vol] 219 10*3/uL 150 - 450 10*3/uL [facility] Laboratory - Urinalysison RBC LM.HPF (Urine sed) [#/Area] 3.55 10*6/uL Low 3.60 - 5.00 10*6/uL [facility] WBC LM.HPF (Urine sed) [#/Area] 7.2 10*3/uL 3.8 - 11.6 10*3/uL [facility] Leukocytes [#/volume] correc dionicio for nucleated erythrocytes in Blood by Automated counOrdered By: Yaritza Gonzalez on 01-03-2024 WBC corrected for nucl RBC Auto (Bld) [#/Vol] Leukocytes [#/volume] corrected for nucleated erythrocytes in Blood by Automated coun 3.8-11.6 [facility] MCH Auto (RBC) [Entitic mass ]Ordered By: Yaritza Gonzalez on 01-03-2024 MCH (RBC) [Entitic mass] MCH [Entitic mass] by Automated count 24.7-34.3 [facility] MCHC Auto (RBC) [Mass/Vol]Or dered By: Yaritza Gonzalez on 01-03-2024 MCHC (RBC) [Mass/Vol] MCHC [Mass/volume] by Automated count 32.0-35.0 [facility] MCV Auto (RBC) [Entitic vol] Ordered By: Yaritza Gonzalez on 01-03-2024 MCV (RBC) [Entitic vol] MCV [Entitic vol ume] by Automated count 80-100 [facility] No Panel Informationon 01-02 ESTIMATED GFR mL/Min [facility] Interpretation and review of laboratory results Abnormal [facility] Interpretation and review of laboratory results Abnormal [facility] No Panel InformationOrdered By: Yaritza Gonzalez on 11-23-2024 Estimated GFR (CKD-EPI) > 60.0 mL/Min [facility] Creatinine Clearance (Chem N/A [facility] Platelet mean volume Auto (B ld) [Entitic vol]Ordered By: Yaritza Gonzalez on 01-03-2024 Platelet mean volume (Bld) [Entitic vol] Platelet mean volume [Entitic volume] in Blood by Automated count 6.3-10.7 [facility] Platelets Auto (Bld) [#/Vol] Ordered By: Yaritza Gonzalez on 01-03-2024 Platelets (Bld) [#/Vol] Platelets [#/vol ume] in Blood by Automated count 150-450 [facility] Potassium [Moles/volume] in Serum or PlasmaOrdered By: Yaritza Gonzalez on 01-03-2024 Potassium [Moles/Vol] Potassium [Moles/volume] in Serum or Plasma 3.5-5.1 [facility] Protein [Mass/volume] in Ser um or PlasmaOrdered By: Yaritza Gonzalez on 01-03-2024 Protein [Mass/Vol] Protein [Mass/volume] in Serum or Plasma Low 6.4-8.9 [facility] RBC Auto (Bld) [#/Vol]Ordere d By: Yaritza Gonzalez on 01-03-2024 RBC (Bld) [#/Vol] Erythrocytes [#/volume] in Blood by Automated count Low 3.60-5.00 [facility] Serum or plasma albumin/glob ulin mass ratioOrdered By: Yaritza Gonzalez on 01-03-2024 Albumin/Globulin [Mass ratio] Serum or plasma albumin/globulin mass ratio [facility] Serum or plasma anion gap de terminationOrdered By: Yaritza Gonzalez on 01-03-2024 Anion gap [Moles/Vol] Serum or plasma anion gap determination 6.0-15.0 [facility] Sodium [Moles/volume] in Ser um or PlasmaOrdered By: Yaritza Gonzalez on 01-03-2024 Sodium [Moles/Vol] Sodium [Moles/volume] in Serum or Plasma 136-145 [facility] Urea nitrogen [Mass/volume] in Serum or PlasmaOrdered By: Yaritza Gonzalez on 01-03-2024 Urea nitrogen [Mass/Vol] Urea nitrogen [Mass/volume] in Serum or Plasma 09-03 [facility] IGP,APTIMA HPV,AGE GDLNon AGE GDLN ACOG TESTING Note . [facility] Comment on above: TESTS RESULT [facility] REF RANGE LAB Clinician Provided Cytology Information Source.............Cervix No. of containers..01 ThinPrep Vial Age Algo ACOG Raine... FLAG LEGEND: L-Low Normal,H-High Normal,LL-Alert Low,HH-Alert High <-Panic Low,>-Panic High,A-Abnormal,AA-Critical Abnormal Performed at: 01 =[facility] [place] [address] Laila Addison MD, IGP, RFX APTIMA HPV ASCU Note . [facility] Comment on above: TESTS RESULT [facility] REF RANGE LAB DIAGNOSIS: 02 NEGATIVE FOR INTRAEPITHELIAL LESION OR MALIGNANCY. THIS SPECIMEN WAS RESCREENED PART OF OUR INSTRUCTOR CREELER PROGRAM. Specimen adequacy: 02 Satisfactory for evaluation. Endocervical and/or squamous metaplastic cells (endocervical component) are present. Performed by: 03 Rachael Baig, Senior Biostatistician/Group Leader ([facility]) QC reviewed by: 02 Mary Gonsalves, Senior Biostatistician/Group Leader ([facility]) . 02 Note: Note 02 [...] <-Panic Low,>-Panic High,A-Abnormal,AA-Critical Abnormal Performed at: [address] [place] [address] Laila Addison MD, 03 SERRANO [facility] [address] [address] Татьяна Arias PhD, Performed at: =G - [facility] [id number] [employer]: Laila Addison MD, Phone: [phone] Performed at: - [facility] [id number] [employer]: Laila Addison MD, Phone: [phone] [facility] Lower extremity v ein - lefton 01-02-2024 EXAM: VASC US LOWER EXTREMITY VENOUS DUPLEX [...] PITER CULVER MD at 02-Jan-2024 05:15:11 PM [facility] Piter Culver MD - 01/02/2024 EXAM: [facility] US LOWER EXTREMITY VENOUS DUPLEX LEFT HISTORY: [...] PITER CULVER MD at 02-Jan-2024 05:15:11 PM [facility] Radiology Study observation (narrative) [facility] US.doppler Lower extremity v ein - leftOrdered By: Piter Culver on 01-02-2024 [facility] [employer] Work Phone: [facility] US LOWER EXTREMITY VENO US DUPLEX LEFTon 01-02-2024 [facility] US LOWER EXTREMITY VENOUS DUPLEX LEFT EXAM: [facility] US LOWER EXTREMITY VENOUS DUPLEX LEFT HISTORY: [...] PITER CULVER MD at 02-Jan-2024 05:15:11 PM [facility] Normal Not Available RECURRENT VAGINITIS (HTRX)on 12-26-2023 ATOPOBIUM VAGINAE 0 [facility] ATOPOBIUM VAGINAE Not detected [facility] BVAB 2,3 (BACTERIAL VAGINOSIS ASSOCIATED BACTERIA 2, 3); MOBILUNCUS SPP 0 [facility] BVAB 2,3 (BACTERIAL VAGINOSIS ASSOCIATED BACTERIA 2, 3); MOBILUNCUS SPP Not detected [facility] ROWENA ALBICANS, PARAPSILOSIS, TROPICALIS 0 [facility] ROWENA ALBICANS, PARAPSILOSIS, TROPICALIS Not detected [facility] ROWENA GLABRATA 0 [facility] ROWENA GLABRATA Not detected [facility] ROWENA KRUSEI 0 [facility] ROWENA KRUSEI Not detected [facility] CHLAMYDIA TRACHOMATIS 0 [facility] CHLAMYDIA TRACHOMATIS Not detected [facility] GARDNERELLA VAGINALIS 0 [facility] GARDNERELLA VAGINALIS Not detected [facility] MEGASPHAERA (TYPES 1, 2) 0 [facility] MEGASPHAERA (TYPES 1, 2) Not detected [facility] MYCOPLASMA GENITALIUM 0 [facility] MYCOPLASMA GENITALIUM Not detected [facility] NEISSERIA GONORRHOEAE 0 [facility] NEISSERIA GONORRHOEAE Not detected [facility] TRICHOMONAS VAGINALIS 0 [facility] TRICHOMONAS VAGINALIS Not detected [facility] Urinalysis macro (dipstick) panel (U)on 12-24-2023 Bilirubin, UA Negative Negative - 4(70) +++ mg/dL [facility] Blood, UA Negative Negative - 50 Soto/mcL [facility] Clarity, UA Clear [facility] Color, UA Yellow [facility] Glucose, UA Negative Negative - 1999(110) ++++ mg/dL [facility] Interpretation and review of laboratory results Normal [facility] Ketones, UA Positive Negative - 160(16) ++++ mg/dL [facility] Leukocytes, UA Positive Negative - 500+++ Adarsh/mcL [facility] Nitrite, UA Negative Negative - Positive [facility] pH, UA 5.5 5 - 9 [facility] Protein, UA Negative Negative - 1999(20) ++++ mg/dL [facility] Spec Grav, UA 1.02 1 - 1.03 [facility] Urobilinogen, UA 1.0 0.2 - 12 mg/dL [facility] Urinalysis macro (dipstick) panel (U)on 11-25-2023 Bilirubin, UA Negative Negative - 4(70) +++ mg/dL [facility] Blood, UA Negative Negative - 50 Soto/mcL [facility] Clarity, UA Clear [facility] Color, UA Yellow [facility] Glucose, UA Negative Negative - 1999(110) ++++ mg/dL [facility] Interpretation and review of laboratory results Abnormal [facility] Ketones, UA Negative Negative - 160(16) ++++ mg/dL [facility] Leukocytes, UA Trace Negative - 500+++ Adarsh/mcL [facility] Nitrite, UA Negative Negative - Positive [facility] pH, UA 5.5 5 - 9 [facility] Protein, UA Negative Negative - 1999(20) ++++ mg/dL [facility] Spec Grav, UA 1.02 1 - 1.03 [facility] Urobilinogen, UA 0.2 0.2 - 12 mg/dL [facility] ALL CBC WITH AUTO DIFFon BASOPHILS ABSOLUTE AUTO 0.0 [facility] Basophils/100 WBC (Bld) 0.4 % 0.2 - 2.0 % [facility] Eosinophils/100 WBC (Bld) 1.3 % 0.9 - 7.0 % [facility] Erythrocyte distribution width (RBC) [Ratio] 11.9 % 11.0 - 15.0 % [facility] Hematocrit (Bld) [Volume fraction] 37.1 % 36.0 - 48.0 % [facility] Hemoglobin (Bld) [Mass/Vol] 12.6 g/dL 12.0 - 16.0 g/dL [facility] IMMATURE GRANULOCYTES ABS AUTO 0.04 High [facility] Immature granulocytes/100 WBC (Bld) 0.5 % 0.0 - 0.5 % [facility] Interpretation and review of laboratory results Abnormal [facility] LYMPHOCYTES ABSOLUTE AUTO 1.6 [facility] Lymphocytes/100 WBC (Bld) 18.7 % Low 20.5 - 60.0 % [facility] MCH (RBC) [Entitic mass] 30.5 pg 26.7 - 34.0 pg [facility] MCHC (RBC) [Mass/Vol] 34.0 g/dL 29.9 - 35.2 g/dL [facility] MCV (RBC) [Entitic vol] 89.8 fL 81.0 - 99.0 fL [facility] MONOCYTES ABSOLUTE AUTO 0.8 [facility] Monocytes/100 WBC (Bld) 9.0 % 1.7 - 12.0 % [facility] NEUTROPHILS ABSOLUTE AUTO 5.9 [facility] Neutrophils/100 WBC (Bld) 70.1 % 43.0 - 75.0 % [facility] Platelet mean volume (Bld) [Entitic vol] 10.5 fL 9.5 - 13.5 fL [facility] TBH EO # 0.1 [facility] TB PLT 231 [facility] RBC 4.13 Low [facility] WBC 8.4 [facility] HCG ( test) Ql (U)o n 10-23-2023 Interpretation and review of laboratory results Abnormal [facility] Preg Test, Ur Positive [facility] Urinalysis macro (dipstick) panel (U)on 10-23-2023 Bilirubin, UA Negative Negative - 4(70) +++ mg/dL [facility] Blood, UA Positive Negative - 50 Soto/mcL [facility] Comment on above: small Clarity, UA Clear [facility] Color, UA Yellow [facility] Glucose, UA Negative Negative - 1999(110) ++++ mg/dL [facility] Interpretation and review of laboratory results Abnormal [facility] Ketones, UA Negative Negative - 160(16) ++++ mg/dL [facility] Leukocytes, UA Positive Negative - 500+++ Adarsh/mcL [facility] Comment on above: large Nitrite, UA Negative Negative - Positive [facility] pH, UA 5.5 5 - 9 [facility] Protein, UA Negative Negative - 1999(20) ++++ mg/dL [facility] Spec Grav, UA 1.025 1 - 1.03 [facility] Urobilinogen, UA 0.2 0.2 - 12 mg/dL [facility] FPG ECG *OFFICE ONLY*on 06-11 FPG ECG *OFFICE ONLY* [facility] [place] [address] [place] [address] Electrocardiograph Report Signed Patient: Shiv Evangelista MR#: [id number] : 2000 Acct:[id number] Age/Sex: 23 / F ADM Date: 07/04/23 Loc: EKGCARDIO Room: Type: [facility] Attending Dr: Artur Kang MD [...] abnormality Abnormal ECG Confirmed by Emmy Jimenez ([id number]) on 07/08/2023 1:09:14 PM Referred By: Electronically Signed By:Emmy Jimenez Transcribed By: MUS Signed By Emmy Jimenez MD 4 1309 Normal The Replaced By [facility] Basophils Auto (Bld) [#/Vol] Ordered By: YUVAL PETE on 09-19-2022 Basophils (Bld) [#/Vol] 0.0 10*3/uL 0.0-0.2 [facility] Basophils/100 WBC Auto (Bld) Ordered By: YUVAL PETE on 09-19-2022 Basophils/100 WBC (Bld) 0.2 % . F [facility] Eosinophils Auto (Bld) [#/Vo l]Ordered By: YUVAL PETE on 09-19-2022 Eosinophils (Bld) [#/Vol] 0.0 10*3/uL 0.0-0.45 [facility] Eosinophils/100 WBC Auto (Bl d)Ordered By: YUVAL PETE on 09-19-2022 Eosinophils/100 WBC (Bld) 0.1 % . [facility] Erythrocyte distribution wid th Auto (RBC) [Ratio]Ordered By: YUVAL PETE on 09-19-2022 Erythrocyte distribution width (RBC) [Ratio] 13.3 % 11.9-15.3 [facility] Hematocrit Auto (Bld) [Volum e fraction]Ordered By: YUVAL PETE on 09-19-2022 Hematocrit (Bld) [Volume fraction] 28.0 % 34.0-46.4 [facility] Hemoglobin [Mass/volume] in BloodOrdered By: YUVAL PETE on 09-19-2022 Hemoglobin (Bld) [Mass/Vol] 9.3 g/dL 11.8-15.4 [facility] Leukocytes [#/volume] correc dionicio for nucleated erythrocytes in Blood by Automated counOrdered By: YUVAL PETE on 09-19-2022 WBC corrected for nucl RBC Auto (Bld) [#/Vol] 14.2 10*3/uL 3.8-11.6 [facility] Lymphocytes Auto (Bld) [#/Vo l]Ordered By: YUVAL PETE on 09-19-2022 Lymphocytes (Bld) [#/Vol] 1.2 10*3/uL 1.00-4.8 [facility] Lymphocytes/100 WBC Auto (Bl d)Ordered By: YUVAL PETE on 09-19-2022 Lymphocytes/100 WBC (Bld) 8.5 % . [facility] MCH Auto (RBC) [Entitic mass ]Ordered By: YUVAL PETE on 09-19-2022 MCH (RBC) [Entitic mass] 28.7 pg 24.7-34.3 [facility] MCHC Auto (RBC) [Mass/Vol]Or dered By: YUVAL PETE on 09-19-2022 MCHC (RBC) [Mass/Vol] 33.2 g/dL 32.0-35.0 [facility] MCV Auto (RBC) [Entitic vol] Ordered By: YUVAL PETE on 09-19-2022 MCV (RBC) [Entitic vol] 86.3 fL 80-[address] [facility] Monocytes Auto (Bld) [#/Vol] Ordered By: YUVAL PETE on 09-19-2022 Monocytes (Bld) [#/Vol] 1.5 10*3/uL 0.0-0.8 [facility] Monocytes/100 WBC Auto (Bld) Ordered By: YUVAL PETE on 09-19-2022 Monocytes/100 WBC (Bld) 10.2 % . [facility] Neutrophils Auto (Bld) [#/Vo l]Ordered By: YUVAL PETE on 09-19-2022 Neutrophils (Bld) [#/Vol] 11.5 10*3/uL 1.8-7.7 [facility] Neutrophils/100 WBC Auto (Bl d)Ordered By: YUVAL PETE on 09-19-2022 Neutrophils/100 WBC (Bld) 81.0 % . [facility] Nucleated erythrocytes [Pres ence] in Blood by Automated countOrdered By: YUVAL PETE on 09-19-2022 Nucleated RBC Auto Ql (Bld) 0.0 /100{WBC} 0-0.5 [facility] Platelet mean volume Auto (B ld) [Entitic vol]Ordered By: YUVAL PETE on 09-19-2022 Platelet mean volume (Bld) [Entitic vol] 8.8 fL 6.3-10.7 [facility] Platelets Auto (Bld) [#/Vol] Ordered By: YUVAL PETE on 09-19-2022 Platelets (Bld) [#/Vol] 181 10*3/uL 150-450 [facility] RBC Auto (Bld) [#/Vol]Ordere d By: YUVAL PETE on 09-19-2022 RBC (Bld) [#/Vol] 3.24 10*6/uL 3.60-5.00 [facility] WBC Auto (Bld) [#/Vol]Ordere d By: YUVAL PETE on 09-19-2022 WBC (Bld) [#/Vol] 14.2 10*3/uL 3.8-11.6 [facility] Amphetamine Screen Ql (U)Ord ered By: YUVAL PETE on 09-18-2022 Amphetamines Ql (U) Negative Negative [facility] Automated epithelial cells c ount in urine sediment (number/area)Ordered By: YUVAL PETE on 09-18-2022 Epithelial cells Auto (Urine sed) [#/Area] 10-19 [HPF] 0-2 [facility] Automated erythrocytes count in urine sediment (number/area)Ordered By: YUVAL PTEE on 09-18-2022 RBC Auto (Urine sed) [#/Area] 0-1 [HPF] 0-4 [facility] Automated leukocytes count i n urine sediment (number/area)Ordered By: YUVAL PETE on 09-18-2022 WBC Auto (Urine sed) [#/Area] 20-49 [HPF] 0-4 [facility] Automated urine hyaline cast s count (number/volume)Ordered By: YUVAL PETE on 09-18-2022 Hyaline casts Auto (U) [#/Vol] None seen [LPF] 0-1 [facility] Barbiturates [Presence] in U rine by Screen methodOrdered By: YUVAL PETE on 09-18-2022 Barbiturates Screen Ql (U) Negative Negative [facility] Benzodiazepines Screen Ql (U )Ordered By: YUVAL PETE on 09-18-2022 Benzodiazepines Ql (U) Negative Negative [facility] Benzoylecgonine [Presence] i n Urine by Screen methodOrdered By: YUVAL PETE on 09-18-2022 Benzoylecgonine Screen Ql (U) Negative Negative [facility] Bilirubin Test strip Ql (U)O rdered By: YUVAL PETE on 09-18-2022 Bilirubin Ql (U) Negative Negative [facility] Color Auto (U)Ordered By: CHARLES PETE on 09-18-2022 Color (U) Yellow Yellow [facility] Ketones Auto test strip (U) [Mass/Vol]Ordered By: YUVAL PETE on 09-18-2022 Ketones (U) [Mass/Vol] Negative Negative [facility] Nitrite Test strip Ql (U)Ord ered By: YUVAL PETE on 09-18-2022 Nitrite Ql (U) Negative Negative [facility] Opiates [Presence] in Urine by Screen methodOrdered By: YUVAL PETE on 09-18-2022 Opiates Screen Ql (U) Negative Negative [facility] Phencyclidine Screen Ql (U)O rdered By: YUVAL PETE on 09-18-2022 Phencyclidine Ql (U) Negative Negative [facility] Comment on above: These are unconfirme d results and should not be used for legal purposes. Drug Cut-Off Concentration: AMPH 1000 ng/mL LESLEY 200 ng/mL NETTIE 200 ng/mL COCM 300 ng/mL OP 300 ng/mL PCP 25 ng/mL Protein Auto test strip (U) [Mass/Vol]Ordered By: YUVAL PETE on 09-18-2022 Protein (U) [Mass/Vol] Negative Negative [facility] Reagin Ab [Presence] in Seru m by RPROrdered By: YUVAL PETE on 09-18-2022 Reagin Ab RPR Ql (S) Non-Reactive Non Reactive [facility] Comment on above: Performed at: [place] [id number] Director: Tony Avila PhD, Phone: [phone] Specific gravity Auto test s trip (U) [Rel density]Ordered By: YUVAL PETE on 09-18-2022 Specific gravity (U) [Rel density] 1.004 1.001-1.030 [facility] Urine bacteria detection by automated methodOrdered By: YUVAL PETE on 09-18-2022 Bacteria Auto Ql (U) 2+ None Seen [facility] Urine clarity by refractomet ry automatedOrdered By: YUVAL PETE on 09-18-2022 Clarity Refractometry automated (U) Cloudy Clear [facility] Urine culture routineOrdered By: YUVAL PETE on 09-18-2022 Bacteria identified Cx Nom (U) 2 Days [facility] Urine glucose measurement by automated test strip (mass/volume)Ordered By: YUVAL PETE on 09-18-2022 Glucose Auto test strip (U) [Mass/Vol] Normal mg/dL Normal [facility] Urine hemoglobin detection b y automated test stripOrdered By: YUVAL PETE on 09-18-2022 Hemoglobin Auto test strip Ql (U) Trace Negative [facility] Urine leukocyte esterase det ection by automated test stripOrdered By: YUVAL PETE on 09-18-2022 Leukocyte esterase Auto test strip Ql (U) 4+ Negative [facility] Urobilinogen Auto test strip (U) [Mass/Vol]Ordered By: YUVAL PETE on 09-18-2022 Urobilinogen (U) [Mass/Vol] Normal mg/dL Normal [facility] pH Auto test strip (U)Ordere d By: YUVAL PETE on 09-18-2022 pH (U) 7.0 [pH] 5.0-9.0 [facility] Group B Streptococcus cultur eOrdered By: Chica Newman on 09-03-2022 S. agalactiae Org specific cx Ql (Unsp spec) No Group B Beta Streptococcus Isolated 3 Days [facility] Amphetamine Screen Ql (U)Ord ered By: Terence Garcia on 08-10-2022 Amphetamines Ql (U) Negative Negative [facility] Automated erythrocytes count in urine sediment (number/area)Ordered By: Terence Garcia on 08-10-2022 RBC Auto (Urine sed) [#/Area] 0-1 [HPF] 0-4 [facility] Automated leukocytes count i n urine sediment (number/area)Ordered By: Terence Garcia on 08-10-2022 WBC Auto (Urine sed) [#/Area] 10-19 [HPF] 0-4 [facility] Barbiturates [Presence] in U rine by Screen methodOrdered By: Terence Garcia on 08-10-2022 Barbiturates Screen Ql (U) Negative Negative [facility] Benzodiazepines Screen Ql (U )Ordered By: Terence Garcia on 08-10-2022 Benzodiazepines Ql (U) Negative Negative [facility] Benzoylecgonine [Presence] i n Urine by Screen methodOrdered By: Terence Garcia on 08-10-2022 Benzoylecgonine Screen Ql (U) Negative Negative [facility] Bilirubin Test strip Ql (U)O rdered By: Terence Garcia on 08-10-2022 Bilirubin Ql (U) Negative Negative [facility] Color Auto (U)Ordered By: Carla Garcia on 08-10-2022 Color (U) Yellow Yellow [facility] Ketones Auto test strip (U) [Mass/Vol]Ordered By: Terence Garcia on 08-10-2022 Ketones (U) [Mass/Vol] Negative Negative [facility] Laboratory - UrinalysisOrder ed By: Terence Garcia on 08-10-2022 Hyaline casts LM Ql (Urine sed) None seen [LPF] 0-8 [facility] Nitrite Test strip Ql (U)Ord ered By: Terence Garcia on 08-10-2022 Nitrite Ql (U) Negative Negative [facility] No Panel InformationOrdered By: Terence Garcia on 08-10-2022 Membranes Rupture (PAMG-1) Negative Negative [facility] Opiates [Presence] in Urine by Screen methodOrdered By: Terence Garcia on 08-10-2022 Opiates Screen Ql (U) Negative Negative [facility] Phencyclidine Screen Ql (U)O rdered By: Terence Garcia on 08-10-2022 Phencyclidine Ql (U) Negative Negative [facility] Comment on above: These are unconfirme d results and should not be used for legal purposes. Drug Cut-Off Concentration: AMPH 1000 ng/mL LESLEY 200 ng/mL NETTIE 200 ng/mL COCM 300 ng/mL OP 300 ng/mL PCP 25 ng/mL Protein Auto test strip (U) [Mass/Vol]Ordered By: Terence Garcia on 08-10-2022 Protein (U) [Mass/Vol] Negative Negative [facility] Specific gravity Auto test s trip (U) [Rel density]Ordered By: Terence Garcia on 08-10-2022 Specific gravity (U) [Rel density] 1.004 1.001-1.030 [facility] Squamous epithelial cells de tection in urine sediment by light microscopyOrdered By: Terence Garcia on 08-10-2022 Epithelial cells.squamous LM Ql (Urine sed) 0-1 [HPF] 0-2 [facility] Urine bacteria detection by automated methodOrdered By: Terence Garcia on 08-10-2022 Bacteria Auto Ql (U) None seen None Seen [facility] Urine clarity by refractomet ry automatedOrdered By: Terence Garcia on 08-10-2022 Clarity Refractometry automated (U) Clear Clear [facility] Urine culture routineOrdered By: Terence Garcia on 08-10-2022 Bacteria identified Cx Nom (U) 2 Days [facility] Urine glucose measurement by automated test strip (mass/volume)Ordered By: Terence Garcia on 08-10-2022 Glucose Auto test strip (U) [Mass/Vol] Normal mg/dL Normal [facility] Urine hemoglobin detection b y automated test stripOrdered By: Terence Garcia on 08-10-2022 Hemoglobin Auto test strip Ql (U) Negative Negative [facility] Urine leukocyte esterase det ection by automated test stripOrdered By: Terence Garcia on 08-10-2022 Leukocyte esterase Auto test strip Ql (U) 4+ Negative [facility] Urobilinogen Auto test strip (U) [Mass/Vol]Ordered By: Terence Garcia on 08-10-2022 Urobilinogen (U) [Mass/Vol] Normal mg/dL Normal [facility] pH Auto test strip (U)Ordere d By: Terence Garcia on 08-10-2022 pH (U) 7.0 [pH] 5.0-9.0 [facility] Cytology Cervical or vaginal smear or scraping studyon 03-12-2022 [facility] Coding Summary.on 11-28-2021 Coding Summary. [id number] Gh0bWw+PGhlYWQ+PE1FV FClJ80vmPPxlB0KP5qWR R0ADYVPKMZELL9YXG2yi ZA2DUzvH2JrnmJh FookeGBgIV24FRj3HET8 aKogXNbuuC0ltRGyZ2e8 QvSkEX04nX25QLcuILUp TiY8EgRfrzokmCWm M2gkIqFtkTCmKti+PHRh YmxlIHdpZHRoPScxMDAl HkOlrMkuFO2zOc9yOPTe LWNvbGxhcHNlOiBj h2ueNWZmLDmfHX0tdIif Q7MvdYP4IENai2r4Dg58 dHI+IKIuGRT9sSyzIIan u381GiCvq1opVVD1 zAHiEShyMCI2I42ry6B8 WMYvTPBuCIX9dMJ0nC9i oTrocafrW1RhlLWnNoB0 CEF2nWAwrE0hxTxx pqejbK7rRvc+O08TRI6J YHAANP2SDvy2F5KpMkae dHI+II69FZEgSW74lTMe fFDbw6xblPh0WdHt ESCcNVH2qDzsCPyst2Qg CWMnZ24ipEPhf5G2IHPm kMwnrGExOtZzbPN2fX3k NWouxmfll6ruofnt Bqvtl9xnkh27zY38F17l DHvdFMHcZRB6UUXlDEKc hKltvy9kkW6uTc1+IDxj a3vat9hsaNs7DtZm RQAcklIpmYbsGKJ3w8Ch Nu35H0DsjTysp8YdUqk0 ci63lGFqx5E4sWR8JTna TWOjoO6rBNaeNbK1 QQWlCxBbvF71jFEwEVcw Ux6evVqqyLfyTC0uVJSn mgmvLJXmsR6vNIDqyWHl vPaoPN0gTSAluwzv x847CnSnWJV3MOTdcLTa K9ZsaS8hBuRaIAIzIAAp Z9PetZMhBIzpX850ZOsq KgM1FPZvxxCdJ8Ah BKXniUylCbW3n9I0Hs4U h0ZntmkoSYJ1FEzjOLQe GxV4RkVxWiE1B5VwJta6 FOJutSpbWE1bT4Ev KTXlxhdfgdysaCF7WYNz VLPxnD37zCAqFCtqHk1e p2J8i891JXCsIBCgxS51 Il4baXrzHJOvvKWO sL0fnrycy6vsdnatPuTb HXMiQIk1RCl0GKHktQcm HuOaYSY9YtV7GPB2dXIk gM5gkXyvuxxrxH7l Oyc+S17ybY4eGKW5NAJ4 wrosVSFgzePtYO71JO57 H6DtQayiqRDhmHM+PGRp quKyhJvzOZ2aOkDu p8vhm4RcPTweX3GbGDWf SSlzUix7ZFIxJKJ5fJX1 pT1eJVTxFYaye2B1yEG3 U3WvfvNjif5qo2en OLNlHVsqX16siNGre3M5 HHRceSV8GYAntMciTxFy uX23Yar+PIUikHzwj4Ie Ptpmh7zrs5cjvAv2 IjMwJSIgdmFsaWduPSJ0 h8ViLv68Y77uOFoyDYPm ITSeVUMxQTIpyHenqj8t iR6pIf5+PGNvbCB3 sYS4wN7wQYOfEeM6NMqq A743YxZilWOdFwbzg7py c8nqpHa4PcFsSOFqooHp yZusGRG1f0QkQb99 T31iNYnzRBFxTCOpRKIr BPKyeWcguz3rqI8iDh2+ BF1ay0fwbo73zA10dLZ+ SKSpCQF1zTgdFMgb URCjkS0sJQjnPwX9PTFv YmSovL57kUGtMGutTo9v yTqccDwuRX6zSKVkjtkv v960RxRcw0clQKHo nACxERkrUKB2K89pp7L1 ZYWrKBXfTES7hTQ6hS3t bGlnbjogbGVmdDsgdmVy lHggOEnsGHjlX152 IHRvcDsnPlBhdGllbnQg RpYsJGj7W9VpKqy7CPKs oFxeGT1ioBYwHTkqGt9r lSjwwXofYP0xLCCq kbhbp629HiAuk1gyMZXh oORoWDjnMEB7H75bn5S3 VYSbMEQrXVT4bHR8uM5m bGlnbjogbGVmdDsg liTkuHxmOGrgTDfwC974 IHRvcDsnPkJpcnRoIERh jWX7LT50EQ52vLQpw9F7 zHK6V8AcUQEeaexk vuvffZU1NZSdFQKetY05 Ot1ltNbyHc8wQJGiKLT8 FVCdxOObM4MkbC4bJgSv UWYcFPTfI3ReiZMd ZJbnF786BFfnYoV6DTEg wpLwM1CnAPCktGmzHdL0 t0U2Wf4NT2E5JF25FD80 pSMmn1I7oFN9X7Uk FMRzvhxbrwvzjMQ5VFMu NAJysR96Mj3fnLejAx2q ZJZsBUE9EOWxdUXaG2Dt vF4wFkSzYHSmGUGd H7FwoGCpJHdwF812WCmn RoW8EIQxtiPxT3EyEWIm oMwlKpY8b2V5Jd6QIGg4 EV31CP44mVAkn1E5 iPK5A5LfJPNeaoyrkves aWB7EVLiWCThwF43Ai2s aIgyWw6cZOHdLXT7XEXz rCWkN4AicM0vAtRg CLZaTABmQ1QjqQAeWBoq O633BHqqGyD6JELcmnOe W2VqQJYmqHncFcM9l7X7 On1AYWDeKV43TZX3 aUQ2UF49BJ70C5YgPvrd dGFibGU+PHRhYmxlIHdp ZHRoPScxMDAlJyBzdHls IH3tMy0nMRBfQISd iBbqxGQuMyVmv4naFVEq UBloAB7hrHnrW8NwsIA5 QYIgf1i2Ki86E73bA5Yc dXA+DXRerQU8xBE6 lH3vCmQkRtG4YIbjJ591 BnWhaFWlMvlwu9qxz4vb kEi6RjB6MYTjswCxeJtj GYP9c1FhXn69Z74r IHdpZHRoPSIxNSUiIHZh hWjbmt4adD9xJy1+PGNv pRY5qYI6fN1sVzTbCjS0 YTyvL706IkNwdOAr Kphjs6eja5edfIu2JoDp BDLofgZtrRidSUB7c7Th Xr44N1JtvYvfp9EvCqk2 lp37kABcg8C4tHA5 F3WjPKTlsxcfaXFvxSlr IJ9lODLndtlaGZJnyY8j FVFgL4g6WlEfWlM4YZzz C3UuuiE3TWGcvHJn CVwtLRP8S05ey1B3LTOi LHMySZW0sCP9wM5eaWsc bjogbGVmdDsgdmVydGlj CYvlIPztK264TDGt bHfdUTObqV6xMKVrtASt zOsvTJ2cDJJfxlfbTfGU OIpgZPLPIP5IYXQ2N8Iy Mec1PLZygXzjXS6v aETwSIycJy8jdYtxyNvd LZ5qWFCbgaqkVEMzmA2l YNZxgAZrqLfdNE1gVWGr guuwc021TfEwGXX3 NBFbjYUtN0MhxY6oVlIi XWEuLJQjU3ZorIBmISil P672JCoyYeO1TMJhqfJy C4GzADYfxJimYkO3 k2F4Vb1uXE2nKA5kOMAj BL75SW45aFNuo5O9nSH5 C8CrFDIcnhudoobktEG1 SYXgUIRuzG10pXEm SZbxGj4hz2U2b066JSDp UGVcmE26Lc2ksXjvSPOp pYJWhL1yibqoj8libyay BkFiZAAvGEr9ABm6 GMBbtXzsIjVmWHD7WqJ7 UPR3cSShyF0byBcqrrbg uQ5bCau+MjAgWWVhcnM8 F0OyOgc1XTXgsUqk BW4krDGfHTxbEi1lrXdb lQgqBH2rZDTmwqwpMTTe cD2hFECeiCCezYikTM4m UFCzakkcl152ZtVq OZI5HGSnzHSeV9FoeL8x FdJeFRFkIMDuS5XwbCXb SQuyM171IRtcZlC6OKWv frJyI4BgOYEjkCig IhV4y7F3Xw0GRM4faNL0 W2UfMov3KZMjxYvfFV5t lVPhOGckKp6glFpcnLfi DL6rGIKqcfcfCFQf dF6qPYNktVHkcIzjNL1f GFJzcxkbd626IeKaNZE7 HEDvnZPkB0NfwW8tEkLj HMKnSPGrA2DlkVUw OHibL062GZktOnC2XYGg awUsR1VuTJOvdUthJdU1 k0Q0Tp3OzQRzY0JuO6h1 M4AqFfnabMH+PC90 AZLzPU75cLQsnRPam7jh oPa6LhXmDYEuIKS8mDqu NVqno7VdBRJuJ54vvAXd v6X0DQOuiAmxdVLi XgQtxLI4yF7xHEatcqpp d7xojxlgMpvdm3igvm71 cZ95M09oVLpkPCUvFPZe JLAaGIOlwKoxpj9u tG7pPa9+KYJscXC9zLI9 wW3gDkWhJjX2ADpuB540 YlArzUPlDgrua6llo3om wGd2MnWrNORqxqWd mDshSON8a4HoSz42U08a IHdpZHRoPSIyMCUiIHZh iBfxtm1dcA5wLe8+PC9j o1flkm53gM19kKY+ MYZyFAF8oLvtTTssSYBm rC7qKJtlPyC6UEWwPqHw eJ10kERiXFsmAw5spIyf fAwpNX2xQCMabrow f458RwAgg8seJSItgHEn COpmHOG6P34qp6Z1OVZk YPCtUSD1nEC5vZ3mqRhw bjogbGVmdDsgdmVy yFenYNeuGTtjF545WOHx vXjeKsTstJMfH9nbbeDK DY8zXcctmUZ+PHRkIHN0 kTodPSsfPHOesY6a FXOhB2f5TxNaMpB6KGzy H9QiljT4KNFiwMKbHUXs sCMJqE9mobppx4dymvik HrClRRPlWJf0UUy8 PMVviMlcCqFiENC3AaM4 DTF6cYMrmN4hqIbbzkce tU0gCew+RklOOjwvdGQ+ PWWyCUH6nAvyNJat MHStaN9eRPYdW1y1GrQa UwS1DZvhO1KtxyI5JPQd dBDhBXBgwYOYjK7eybbi o7hbnifiIsFtTXVo KXb2OZb0MWPwtUbrVmJq LBL7UqM1UCO9lEFoaH9f oFdkyymkuQ4uIva+TVJO OjwvdGQ+PHRkIHN0 cZpoBUxnXRAddI6dNGRl H8x9KfIuRaQ7MYhnL0Ou ftZ0MZZxtWNhBCJcrRYA sE8tnflfn9cixjqm WbUsOPFiRKa1QKz3ROAh yUlrFsClPPD9MuP2URK4 cFCtfZ9nkRtnongokW7b Oyc+LMX0BHB9VP73 GJ19K8DhVvmmhFStzDK+ PHRhYmxlIHdpZHRoPScx GODzGyXsgTgeVO5dUf9w ZGVyLWNvbGxhcHNl OiBj (more content not included)... Normal [facility] Discharge Instructionson Discharge Instructions [id number] 210 [id number]#[id number]:127 Normal [facility] ED Clinical Summaryon 2021 ED Clinical Summary [place] [address] ED Clinical Summary Person Information Name: EVANGELISTASHIV/[place] Age: 21 Years : 2000 Sex: Female Language: Dutch PCP: OK TYSON DO Marital Status: Single [...] 11/25/2021 23:47:16 11/25/2021 23:47:16 11/25/2021 23:47:16 ADDRESS: [address] [place] [phone] PHYS DOC NOTES: MEDICAL INFORMATION: Prescriptions Given: Medications to Continue with No Changes Other Medications hydrOXYzine (Vistaril 25 mg Cap) 1-2 cap(s) By Mouth 4 times a day as needed as needed for anxiety. Refills: 0. PATIENT EDUCATION INFORMATION: Instructions: Migraine Headache Follow up: With: Address: When: OK TYSON Rub[address], [address] [place] [address] Business (1) In 3 days DIAGNOSIS: Migraine headache Normal [facility] ED Note-Physicianon 11-27-19 ED Note-Physician Basic [...] 5 mg/mL Inj, 10 mg, IV Push [id number] [F], 1000 mL, IV Disposition Plan Discharge Prescription List Prescriptions No active prescription medications Follow-up With When Contact Information OK TYSON In [address], [facility] [address] [place] [address]- Business (1) Additional Instructions: Patient Education Migraine [...] available. Diagnostic Results No qualifying data available. [facility] Comment on above: Result Comment: Elec [...] these instructions at home: Medicines ? Take mxqd-zcp-yaxpklr and prescription medicines only as told by your health care provider. ? Ask your health care provider if the medicine prescribed to you: ? Requires you to avoid driving or using heavy machinery. ? Can cause constipation. You may need to take these actions to prevent or treat constipation: ? Drink enough fluid to keep your urine pale yellow. ? Take njlz-wxb-nlbxhfv or prescription medicines. ? Eat foods that [...] different or (more content not included)... Normal [facility] ED Patient Summaryon 022 ED Patient Summary [place] [address] Patient Discharge Instructions Person Information Name: SHIV EVANGELISTA Age: 21 Years Arrival Date: 11/25/2021 18:57:45 Discharge Diagnosis: Migraine headache Primary Care Physician: OK TYSON DO Provider Information Primary Provider: Rayray Aquino DO Advanced Cad Librarian:None The exam and treatment you received in the Emergency Department were for an urgent problem and are not intended as complete care. It is important that you follow up with a doctor, nurse practitioner, or physician?s conference assistant for ongoing care. If your symptoms [...] Instructions: With: Address: When: [address], [facility] [place] [address] Business (1) In 3 days In the event that this physician does not participate in your insurance network, please consult with your insurance company to find a nearby participating provider. Patient Education Materials: Migraine Headache A MESSAGE TO ALL PATIENTS REGARDING OPIOIDS PRESCRIPTION OPIOIDS: WHAT YOU NEED TO KNOW Prescription opioids can be used to help relieve ttmnrsbd-ys-pmtjfo pain and are often prescribed following a [...] be struggling with addiction, tell your health post acute care nurse and ask for guidance or call [facility]?S National Helpline at 5-540-773-UCEK. f Source: [place] Department of Health and Human (more content not included)... Normal [facility] Progress Note-Nurseon 2021 Progress Note-Nurse Pt. brought back to ed bed 13 Normal [facility] Progress Note-Nurse Pt. states her headache is completely gone and she is ready to go home. Normal [facility] Consent for Treatmenton 11-10 Consent for Treatment [id number] 21 [id number] #1.00CD:127 Normal [facility] Urine culture routineOrdered By: Ok Tyson on 10-11-2021 Bacteria identified Cx Nom (U) Klebsiella pneumoniae [facility] Automated epithelial cells c ount in urine sediment (number/area)Ordered By: Ok Tyson on 10-09-2021 Epithelial cells Auto (Urine sed) [#/Area] 20-49 [HPF] 0-2 [facility] Automated erythrocytes count in urine sediment (number/area)Ordered By: Ok Tyson on 10-09-2021 RBC Auto (Urine sed) [#/Area] None seen [HPF] 0-4 [facility] Automated leukocytes count i n urine sediment (number/area)Ordered By: Ok Tyson on 10-09-2021 WBC Auto (Urine sed) [#/Area] 1-2 [HPF] 0-4 [facility] Automated urine hyaline cast s count (number/volume)Ordered By: Ok Tyson on 10-09-2021 Hyaline casts Auto (U) [#/Vol] None seen [LPF] 0-1 [facility] Bilirubin Test strip Ql (U)O rdered By: Ok Tyson on 10-09-2021 Bilirubin Ql (U) Negative Negative [facility] Color Auto (U)Ordered By: Anna Tyson on 10-09-2021 Color (U) Yellow Yellow [facility] Ketones Auto test strip (U) [Mass/Vol]Ordered By: Ok Tyson on 10-09-2021 Ketones (U) [Mass/Vol] Negative Negative [facility] Nitrite Test strip Ql (U)Ord ered By: Ok Tyson on 10-09-2021 Nitrite Ql (U) Negative Negative [facility] Protein Auto test strip (U) [Mass/Vol]Ordered By: Ok Tyson on 10-09-2021 Protein (U) [Mass/Vol] Negative Negative [facility] Specific gravity Auto test s trip (U) [Rel density]Ordered By: Ok Tyson on 10-09-2021 Specific gravity (U) [Rel density] 1.005 1.001-1.030 [facility] Urine bacteria detection by automated methodOrdered By: Ok Tyson on 10-09-2021 Bacteria Auto Ql (U) 3+ None Seen [facility] Urine clarity by refractomet ry automatedOrdered By: Ok Tyson on 10-09-2021 Clarity Refractometry automated (U) Clear Clear [facility] Urine glucose measurement by automated test strip (mass/volume)Ordered By: Ok Tyson on 10-09-2021 Glucose Auto test strip (U) [Mass/Vol] Normal mg/dL Normal [facility] Urine hemoglobin detection b y automated test stripOrdered By: Ok Tyson on 10-09-2021 Hemoglobin Auto test strip Ql (U) Negative Negative [facility] Urine leukocyte esterase det ection by automated test stripOrdered By: Ok Tyson on 10-09-2021 Leukocyte esterase Auto test strip Ql (U) 2+ Negative [facility] Urobilinogen Auto test strip (U) [Mass/Vol]Ordered By: Ok Tyson on 10-09-2021 Urobilinogen (U) [Mass/Vol] Normal mg/dL Normal [facility] pH Auto test strip (U)Ordere d By: Ok Tyson on 10-09-2021 pH (U) 7.0 [pH] 5.0-9.0 [facility] Albumin [Mass/volume] in Ser um or PlasmaOrdered By: Ok Tyson on 09-13-2021 Albumin [Mass/Vol] 4.5 g/dL 3.2-5.5 [facility] Creatinine and Glomerular fi ltration rate.predicted panel (S/P/Bld)Ordered By: Ok Tyson on 09-13-2021 Creatinine [Mass/Vol] 0.71 mg/dL 0.44-1.03 [facility] Estimated glomerular filtrat ion rate (GFR) non- AmericanOrdered By: Ok Tyson on 09-13-2021 GFR/1.73 sq M.predicted among non-blacks MDRD (S/P/Bld) [Vol rate/Area] > 60 mL/Min [facility] Globulin Calc (S) [Mass/Vol] Ordered By: Ok Tyson on 09-13-2021 Globulin (S) [Mass/Vol] 2.5 g/dL [facility] No Panel InformationOrdered By: Ok Tyson on 09-13-2021 Estimated GFR () > 60 mL/Min [facility] Comment on above: GFR estimated refere nce range: According to KDOQI guidelines, <60 ml/min/1.73m2 is sufficient to diagnose a patient with chronic kidney disease. Pharmacy Creatinine Clearance (Chem N/A [facility] Protein [Mass/volume] in Ser um or PlasmaOrdered By: Ok Tyson on 09-13-2021 Protein [Mass/Vol] 7.0 g/dL 6.1-7.9 [facility] Serum or plasma alanine schmid otransferase measurement without P-5'-P (enzymatic activiOrdered By: Ok Tyson on 09-13-2021 ALT No additional P-5'-P [Catalytic activity/Vol] 18 U/L 10-60 [facility] Serum or plasma albumin/glob ulin mass ratioOrdered By: Ok Tyson on 09-13-2021 Albumin/Globulin [Mass ratio] 1.8 {ratio} [facility] Serum or plasma alkaline pascale sphatase measurement (enzymatic activity/volume)Ordered By: Ok Tyson on 09-13-2021 ALP [Catalytic activity/Vol] 51 U/L 32-92 [facility] Serum or plasma aspartate am inotransferase measurement (enzymatic activity/volume)Ordered By: Ok Tyson on 09-13-2021 AST [Catalytic activity/Vol] 23 U/L 10-42 [facility] Serum or plasma calcium acosta urement (mass/volume)Ordered By: Ok Tyson on 09-13-2021 Calcium [Mass/Vol] 9.2 mg/dL 8.2-10.2 [facility] Serum or plasma chloride danis surement (moles/volume)Ordered By: Ok Tyson on 09-13-2021 Chloride [Moles/Vol] 104 mmol/L 95-114 [facility] Serum or plasma glucose acosta urement (mass/volume)Ordered By: Ok Tyson on 09-13-2021 Glucose [Mass/Vol] 82 mg/dL 70-100 [facility] Comment on above: ADA recommended refe rence range Random Glucose Reference Range is dependent on time and content of last meal. Glucose of more than 200 mg/dL in a nonstressed, ambulatory subject supports the diagnosis of Diabetes Mellitus. Serum or plasma potassium me asurement (moles/volume)Ordered By: Ok Tyson on 09-13-2021 Potassium [Moles/Vol] 3.4 mmol/L 3.5-5.1 [facility] Serum or plasma sodium measu rement (moles/volume)Ordered By: Ok Tyson on 09-13-2021 Sodium [Moles/Vol] 139 mmol/L 136-146 [facility] Serum or plasma total biliru bin measurement (mass/volume)Ordered By: Ok Tyson on 09-13-2021 Bilirubin [Mass/Vol] 0.4 mg/dL 0.3-1.2 [facility] Serum or plasma total carbon dioxide measurement (moles/volume)Ordered By: Ok Tyson on 09-13-2021 CO2 [Moles/Vol] 28.3 mmol/L 22.0-30.0 [facility] Serum or plasma urea nitroge n measurement (mass/volume)Ordered By: Ok Tyson on 09-13-2021 Urea nitrogen [Mass/Vol] 8 mg/dL 11-02 [facility] Q - Strep pneumo Ab 23 serot ypeson 06-15-2021 SEROTYPE 1 (1) 91.7 Normal [facility] [employer] Comment on above: Order Comment: [facility] Testing performed at: [facility], [employer] [facility],, [address] [place] [address], , Network Account Manager: Angela Feng MD,PhD,MANOHAR [facility] Date/Time: [facility] Results Received Date/Time: [facility] Reported Date/Time: FASTING: NO Performed By: #### 1 [id number] #### [facility] Default [address] [place] [address] SEROTYPE 12 (12F) 3.[address] [facility] [employer] Comment on above: Order Comment: [facility] Testing performed at: [facility], [employer] [facility],, [address] [place] [address], , Network Account Manager: Angela Feng MD,PhD,MANOHAR [facility] Date/Time: [facility] Results Received Date/Time: [id number] [facility] Reported Date/Time: FASTING: NO Performed By: #### 1 [id number] #### [facility] Default [address] [place] [address] SEROTYPE 14 (14) 163.4 [facility] Comment on above: Order Comment: [facility] performed at: [facility], [employer] [facility],, [address] [place] [address], , Network Account Manager: Angela Feng MD,PhD,MANOHAR [facility] Date/Time: [facility] Results Received Date/Time: [facility] Reported Date/Time: FASTING: NO Performed By: [id number] #### [facility] Default [address] [place] [address] SEROTYPE 17 (17F) 4.6 [facility] Comment on above: Order Comment: [facility] performed at: [facility], [employer] [facility],, [address] [place] [address], , Network Account Manager: Angela Feng MD,PhD,MANOHAR [facility] Collection Date/Time: [facility] Results Received Date/Time: [facility] Reported Date/Time: FASTING: NO Performed By: [id number] #### [facility] Default [address] [place] [address] SEROTYPE 19 (19F) 18.2 [facility] Comment on above: Order Comment: [facility] performed at: [facility], [employer] [facility],, [address] [place], [place] [address], , Network Account Manager: Angela Feng MD,PhD,MANOHAR [facility] Collection Date/Time: [facility] Results Received Date/Time: [facility] Reported Date/Time: FASTING: NO Performed By: #### [id number] #### [facility] Default [address] [place] [address] SEROTYPE 2 (2) 4.7 [facility] Comment on above: Order Comment: [facility] performed at: [facility], [employer] [facility],, [address] [place] [address], , Network Account Manager: Angela Feng MD,PhD,MANOHAR [facility] Collection Date/Time: [facility] Results Received Date/Time: [facility] Reported Date/Time: FASTING: NO Performed By: [id number] #### [facility] Default [address] [place] [address] SEROTYPE 20 (20) 3.8 [facility] Comment on above: Order Comment: [facility] performed at: [facility], [employer] [facility],, [address] [place] [address], , Network Account Manager: Angela Feng MD,PhD,MANOHAR [facility] Collection Date/Time: [facility] Results Received Date/Time: [facility] Reported Date/Time: FASTING: NO Performed By: [id number] #### [facility] Default [address] [place] [address] SEROTYPE 22 (22F) 4.0 [facility] Comment on above: Order Comment: [facility] performed at: [facility], [employer] [facility],, [address] [place] [address], , Network Account Manager: Angela Feng MD,PhD,MANOHAR [facility] Collection Date/Time: [facility] Results Received Date/Time: [facility] Reported Date/Time: FASTING: NO Performed By: #### [id number] #### [facility] Default [address] [place] [address] SEROTYPE 23 (23F) 5.7 Normal [facility] Comment on above: Order Comment: [facility] performed at: , [employer] [facility],, [address] [place] [address], , Network Account Manager: Angela Feng MD,PhD,MANOHAR [facility] Collection Date/Time: [facility] Results Received Date/Time: [facility] Reported Date/Time: FASTING: NO Performed By: #### 1 [id number] #### [facility] Default [address] [place] [address] SEROTYPE 26 (6B) 7.1 Normal [facility] Comment on above: Order Comment: [facility] Testing performed at: , [facility] [facility],, [address] [place] [address], , Network Account Manager: Angela Feng MD,PhD,MANOHAR Quest Collection Date/Time: [facility] Results Received Date/Time: [facility] Reported Date/Time: FASTING: NO Performed By: #### 1 [id number] #### [facility] Default [address] [place] [address] SEROTYPE 3 (3) 5.2 Normal [facility] Comment on above: Order Comment: [facility] Testing performed at: , [facility] [facility],, [address] [place] [address], , Network Account Manager: Angela Feng MD,PhD,MANOHAR [facility] Collection Date/Time: [facility] Results Received Date/Time: [facility] Reported Date/Time: FASTING: NO Performed By: #### 1 [id number] #### [facility] Default [address] [place] [address] SEROTYPE 34 (10A) 20.3 Normal [facility] Comment on above: Order Comment: [facility] Testing performed at: EZ, [facility] [facility],, [facility] [place], [place], , Network Account Manager: Angela Feng MD,PhD,MANOHAR [facility] Collection Date/Time: [facility] Results Received Date/Time: [facility] Reported Date/Time: FASTING: NO Performed By: #### 1 [id number] #### [facility] Default [address] [place] [address] SEROTYPE 4 (4) 2.2 Normal [facility] [employer] Comment on above: Order Comment: [facility] Testing performed at: EZ, [facility] [facility],, [address] [place] [address], , Network Account Manager: Angela Feng MD,PhD,MANOHAR [facility] Collection Date/Time: [facility] Results Received Date/Time: [facility] Reported Date/Time: FASTING: NO Performed By: #### 1 [id number] #### [facility] Default [address] [place] [address] SEROTYPE 43 (11A) 10.7 Normal [facility] Specialist Comment on above: Order Comment: [facility] Testing performed at: [facility], [facility],, [address] [place] [address], , Network Account Manager: Angela Feng MD,PhD,MANOHAR [facility] Collection Date/Time: [facility] Results Received Date/Time: [facility] Reported Date/Time: FASTING: NO Performed By: #### 1 [id number] #### [facility] Default [address] [place] [address] SEROTYPE 5 (5) 2.5 Normal [facility] [employer] Comment on above: Order Comment: [facility] Testing performed at: EZ, [facility] [facility],, [address] [place] [address], , Network Account Manager: Angela Feng MD,PhD,MANOHAR [facility] Collection Date/Time: [facility] Results Received Date/Time: [facility] Reported Date/Time: FASTING: NO Performed By: #### 1 [id number] #### [facility] Default [address] [place] [address] SEROTYPE 51 (7F) 4.3 Normal [facility] Comment on above: Order Comment: [facility] Testing performed at: EZ, [facility],, [address] [place], [place] [address], , Network Account Manager: Angela Feng MD,PhD,MANOHAR [facility] Collection Date/Time: [facility] Results Received Date/Time: [facility] Reported Date/Time: FASTING: NO Performed By: #### 1 [id number] #### [facility] Default [address] [place] [address] SEROTYPE 54 (15B) 9.3 Normal [facility] Comment on above: Order Comment: [facility] Testing performed at: EZ, [facility] [facility],, [address] [place] [address], , Network Account Manager: Angela Feng MD,PhD,MANOHAR [facility] Collection Date/Time: [facility] Results Received Date/Time: [facility] Reported Date/Time: FASTING: NO Performed By: #### 1 [id number] #### [facility] Default [address] [place] [address] SEROTYPE 56 (18C) 15.2 Normal [facility] Comment on above: Order Comment: [facility] Testing performed at: EZ, [facility] [facility],, [facility] [place], [place], , Network Account Manager: Angela Feng MD,PhD,MANOHAR [facility] Collection Date/Time: [facility] Results Received Date/Time: [facility] Reported Date/Time: FASTING: NO Performed By: #### 1 [id number] #### [facility] Default [address] [place] [address] SEROTYPE 57 (19A) 1.3 Normal [facility] Comment on above: Order Comment: [facility] Testing performed at: EZ, [facility] [facility],, [address] [place] [address], , Network Account Manager: Angela Feng MD,PhD,MANOHAR [facility] Collection Date/Time: [facility] Results Received Date/Time: [facility] Reported Date/Time: FASTING: NO Performed By: #### 1 [id number] #### [facility] Default [address] [place] [address] SEROTYPE 68 (9V) 2.5 [facility] Comment on above: Order Comment: [facility] Testing performed at: EZ, [facility] [facility],, [facility] [place], [place], , Network Account Manager: Angela Feng MD,PhD,MANOHAR [facility] Collection Date/Time: [facility] Results Received Date/Time: [facility] Reported Date/Time: FASTING: NO Performed By: #### 1 [id number] #### [facility] Default [address] [place] [address] SEROTYPE 70 (33F) 2.5 [facility] Comment on above: Order Comment: [facility] Testing performed at: EZ, [employer] [facility],, [facility] [place], [place], , Network Account Manager: Angela Feng MD,PhD,MANOHAR [facility] Collection Date/Time: [facility] Results Received Date/Time: [id number] [facility] Reported Date/Time: FASTING: NO Result Comment: [...] serotype-specific titers may have less robust responses. [facility] uses a multi-analyte immunodetection (MAID) method. The method employs the [employer] flow cytometric system which measures multiple analytes [...] analytical performance characteristics have been determined by [facility]. It has not been cleared or approved by FDA. This assay has been validated pursuant to the CLIA regulations and used for clinical purposes. For additional information, please refer to http://education.KidzVuz.This Week In/faq/HGH124 (This link is being provided for informational/ educational purposes only.) Performed By: #### 1 [id number] #### [facility] Default [address] [place] [address] SEROTYPE 8 (8) 9.8 Normal [facility] [employer] Comment on above: Order Comment: [facility] Testing performed at: , [facility] [facility],, [id number] [place] [address], , Network Account Manager: Angela Feng MD,PhD,MANOHAR [facility] Collection Date/Time: [facility] Results Received Date/Time: [facility] Reported Date/Time: FASTING: NO Performed By: #### 1 [id number] #### [facility] Default [address] [place] [address] SEROTYPE 9 (9N) 2.8 Normal [facility] [employer] Comment on above: Order Comment: [facility] Testing performed at: EZ, [employer] [facility],, [address] [place], [place], , Network Account Manager: Angela Feng MD,PhD,MANOHAR [facility] Collection Date/Time: [id number] [facility] Results Received Date/Time: [facility] Reported Date/Time: FASTING: NO Performed By: #### 1 [id number] #### [facility] Default [address] [place] [address] Office Visit (Pediatric Neur ology)on 05-30-2021 Follow-up [...] updates. My nurse is Yolanda Calvillo at [phone]. 8. 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 She will be at [employer] [facility] [employer]. She has also been diagnosed IGA deficiency, [...] Vitals V (more content not included)... Normal [facility] CHEMISTRYOrdered By: SYSTEM SYSTEM on 05-17-2021 Anion gap [Moles/Vol] 11 mmol/L Normal 6 - 16 mEq/L [facility] Calcium [Mass/Vol] 9.3 mg/dL Normal 8.9 - 11. 1 mg/dL [facility] Chloride [Moles/Vol] 103 mmol/L Normal 101 - 1 11 mmol/L [facility] CO2 [Moles/Vol] 27 mmol/L Normal 21 - 31 mmol/L [facility] Creatinine [Mass/Vol] 0.8 mg/dL Normal 0.5 - 1.3 mg/dL [facility] GFR/1.73 sq M.predicted among blacks MDRD (S/P/Bld) [Vol rate/Area] mL/min/1.73 m2 Normal >=59mL/min/ 1.73 m2 [facility] Chem S GFR/1.73 sq M.predicted among non-blacks MDRD (S/P/Bld) [Vol rate/Area] mL/min/1.73 m2 Normal >=59mL/min/ 1.73 m2 [facility] Chem S Glucose [Mass/Vol] 152 mg/dL Normal [...] 05-17-2021 HCG.beta subunit (U) [Moles/Vol] Negative Normal [facility] Man [facility] URINALYSISOrdered By: Genevieve collins on [...] PM) Normal Negative [facility] UA Auto SS Harrison.plasma/Harrison. RBC (Bld) [Mass ratio] >75 /HPF Invalid [...] [facility] UA Auto SS Urobilinogen Qn (U) 0.9993233 {Deny'U}/dL Normal 0.0 - 1.0 EU/dL [facility] UA Auto SS WBC Auto Ql (U) Negative (05/17/21 9:31 PM) Normal Negative [facility] UA Auto SS WBC LM.HPF (Urine sed) [#/Area] 0-5 /HPF Normal 0-5/HPF [facility] UA Auto SS Q - Diptheria/Tetanus Abon 0 04-13-2021 DIPHTHERIA ANTITOXOID 0.59 IU/mL Normal [facility] [place] [employer] Comment on above: Order Comment: [facility] Testing performed at: [facility] [facility], [address], [place], [place], , Network Account Manager: Gurmeet Rabago M.D.,PhD Quest Collection Date/Time: [facility] [...] analytical performance characteristics have been determined by [facility] [place]. It has not been cleared or approved by the U.S. Food and Drug Administration. This assay has been validated pursuant to the CLIA regulations and is used for clinical purposes. Performed By: #### 1 [id number], 53822B, 41936Y, 30351V, 96897R, 71167B, 34790 #### [facility] Default [address] [place] [address] TETANUS ANTITOXOID 0.71 IU/mL Normal [facility] [place] [employer] Comment on above: Order Comment: [facility] Testing performed at: [facility] [facility], [address], [place], [place], , Network Account Manager: Gurmeet Rabago M.D.,PhD Quest Collection Date/Time: [facility] [...] analytical performance characteristics have been determined by [facility], [place], [place]. It has not been cleared or approved by the U.S. Food and Drug Administration. This assay has been validated pursuant to the CLIA regulations and is used for clinical purposes. Performed By: #### 1 [id number], 43408G, 07184K, 96564C, 79284J, 98447L, 83904 #### [facility] Default [address] [place] [address] Q - HIV AB, HIV 1/2, EIAon 0 04-13-2021 HIV AG/AB, 4TH GEN Non-Reactive Normal NON-REACT IV E [facility] [employer] Comment on above: Order Comment: [facility] Testing performed at: [facility], [facility], [address] [place] [address], [address] [place] [address], [address], Network Account Manager: David Mancilla MD Quest Collection Date/Time: [facility] [...] purpose. For additional information please refer to http://education.KidzVuz.This Week In/faq/CPS905 (This link is being provided for informational/ educational purposes only.) The performance of this assay has not been clinically validated in patients less than 2 years old. Performed By: #### 1 [id number], 19565U, 43041I, 82681S, 03419R, 22124H, 31893 #### [facility] Default [address] [place] [address] Q - IGA,SERUMon 04-13-2021 IMMUNOGLOBULIN A 58 mg/dL Normal 47-310 [facility] [employer] Comment on above: Order Comment: [facility] Testing performed at: [address], [facility], [address] , [address] [place] [address], [address] [place] [address], Network Account Manager: David Mancilla MD [facility] Collection Date/Time: [facility] Results Received Date/Time: [facility] Reported Date/Time: Performed By: #### 1 [id number], 22675P, 10330C, 16382A, 59541H, 59804N, 96559 #### [facility] Default [address] [place] [address] Q - IGE,SERUMon 04-13-2021 IMMUNOGLOBULIN E 7 kU/L Normal [facility] Specialist Comment on above: Order Comment: [facility] Testing performed at: [address], [facility], [address] , [address] [place] [address], [address] [place] [address], Network Account Manager: David Mancilla MD [facility] Collection Date/Time: [facility] Results Received Date/Time: [facility] Reported Date/Time: Performed By: #### 1 [id number], 91605O, 39635N, 93682G, 14562M, 04026L, 45847 #### [facility] Default [address] [place] [address] Q - IGG,SERUMon 04-13-2021 IMMUNOGLOBULIN G 912 mg/dL Normal 600-1640 [facility] [employer] Comment on above: Order Comment: [facility] Testing performed at: [address], [facility], [address], [address] [place] [address], [address] [place] [address], Network Account Manager: David Mancilla MD [facility] Collection Date/Time: [facility] Results Received Date/Time: [facility] Reported Date/Time: Performed By: #### 1 [id number], 04903Y, 89804L, 15044B, 06173X, 40981B, 12883 #### [facility] Default [address] [place] [address] Q - IGM,SERUMon 04-13-2021 IMMUNOGLOBULIN M 73 mg/dL Normal 50-300 [facility] [employer] Comment on above: Order Comment: [facility] Testing performed at: Q, [facility], [address], [address] [place], [address], Network Account Manager: David Mancilla MD [facility] Collection Date/Time: [facility] Results Received Date/Time: [facility] Reported Date/Time: Performed By: #### 1 [id number], 99673K, 98370P, 57948H, 86478I, 78241A, 63513 #### [facility] Default [address] [place] [address] Q - Strep pneumo Ab 23 serot ypeson 04-13-2021 SEROTYPE 1 (1) 0.8 Normal [facility] Specialist Comment on above: Order Comment: [facility] Testing performed at: [facility], [facility] [facility],, [address] [place] [address], [address], Network Account Manager: Angela Feng MD,PhD,MANOHAR Quest Collection Date/Time: [facility] Results Received Date/Time: [facility] Reported Date/Time: Performed By: #### 1 6963X, 04215W, 58991E, 84215W, 86562N, 65827R, 07701 #### [facility] Default [address] [place] [address] SEROTYPE 12 (12F) <0.3 Normal [facility] Comment on above: Order Comment: [facility] Testing performed at: [facility], [employer] [facility],, [address] [facility], [place], , Network Account Manager: Angela Feng MD,PhD,MANOHAR [facility] Collection Date/Time: [facility] Results Received Date/Time: [facility] Reported Date/Time: Performed By: #### 1 [id number], 00751E, 71148I, 32768S, 77492D, 09951F, 57231 #### [facility] Default [address] [place] [address] SEROTYPE 14 (14) 1.1 [facility] Comment on above: Order Comment: [facility] Testing performed at: , [facility] [facility],, [address] [place] [address], , Network Account Manager: Angela Feng MD,PhD,MANOHAR [facility] Collection Date/Time: [facility] Results Received Date/Time: [facility] Reported Date/Time: Performed By: #### 1 6963X, 79982C, 76323V, 61709K, 36550O, 80408H, 52933 #### [facility] Default [address] [place] [address] SEROTYPE 17 (17F) 1.9 [facility] Comment on above: Order Comment: [facility] Testing performed at: [facility], [employer] [facility],, [address] [place] [address], , Network Account Manager: Angela Feng MD,PhD,MANOHAR [facility] Collection Date/Time: [facility] Results Received Date/Time: [facility] Reported Date/Time: Performed By: #### 1 6963X, 89720Z, 00811J, 08739N, 08922C, 62968L, 78366 #### [facility] Default [address] [place] [address] SEROTYPE 19 (19F) 2.3 [facility] Comment on above: Order Comment: [facility] Testing performed at: [facility], [facility],, [facility] [place], [place], , Network Account Manager: Angela Feng MD,PhD,MANOHAR Quest Collection Date/Time: [facility] Results Received Date/Time: [facility] Reported Date/Time: Performed By: #### 1 6963X, 25565L, 01092X, 67388R, 24504G, 73631R, 67279 #### [facility] Default [address] [place] [address] SEROTYPE 2 (2) <0.3 Normal [facility] [employer] Comment on above: Order Comment: [facility] Testing performed at: [facility], [facility] [facility],, [address] [place] [address], , Network Account Manager: Angela Feng MD,PhD,MANOHAR [facility] Collection Date/Time: [facility] Results Received Date/Time: [facility] Reported Date/Time: Performed By: #### 1 6963X, 12729A, 00199Q, 84850X, 90381G, 81586L, 84833 #### [facility] Default [address] [place] [address] SEROTYPE 20 (20) 1.0 Normal [facility] [employer] Comment on above: Order Comment: [facility] Testing performed at: [facility], [facility] [facility],, [address] [place] [address], , Network Account Manager: Angela Feng MD,PhD,MANOHAR [facility] Collection Date/Time: [facility] Results Received Date/Time: [facility] Reported Date/Time: Performed By: #### 1 6963X, 44839R, 89875X, 05755K, 55438C, 53525U, 07837 #### [facility] Default [address] [place] [address] SEROTYPE 22 (22F) <0.3 Normal [facility] Comment on above: Order Comment: [facility] Testing performed at: [facility]Z, [facility] [facility],, [address] [place] [address], , Network Account Manager: Angela Feng MD,PhD,MANOHAR [facility] Collection Date/Time: [facility] Results Received Date/Time: [facility] Reported Date/Time: Performed By: #### 1 6963X, 81897L, 09353K, 25818O, 58117Q, 15592X, 81047 #### [facility] Default [address] [place] [address] SEROTYPE 23 (23F) 3.6 Normal [facility] Comment on above: Order Comment: [facility] Testing performed at: [facility], [facility] [facility],, [address] [place] [address], , Network Account Manager: nAgela Feng MD,PhD,MANOHAR [facility] Collection Date/Time: [facility] Results Received Date/Time: [facility] Reported Date/Time: Performed By: #### 1 6963X, 63284S, 11227L, 38119D, 41539F, 42412M, 13231 #### [facility] Default [address] [place] [address] SEROTYPE 26 (6B) 4.5 Normal [facility] Comment on above: Order Comment: [facility] Testing performed at: EZ, [facility] [facility],, [address] [place] [address], , Network Account Manager: Angela Feng MD,PhD,MANOHAR [facility] Collection Date/Time: [facility] Results Received Date/Time: [facility] Reported Date/Time: [id number] Performed By: #### 1 [id number], 92647U, 28677T, 88529N, 62672U, 86754N, 07874 #### [facility] Default [address] [place] [address] SEROTYPE 3 (3) 1.7 Normal [facility] [employer] Comment on above: Order Comment: [facility] Testing performed at: EZ, [facility] [facility],, [address] [place] [address], , Network Account Manager: Angela Feng MD,PhD,MANOHAR [facility] Collection Date/Time: [facility] Results Received Date/Time: [facility] Reported Date/Time: Performed By: #### 1 6963X, 76593E, 04283R, 69039V, 01491V, 36038V, 04909 #### [facility] Default [address] [place] [address] SEROTYPE 34 (10A) 1.[address] [facility] [employer] Comment on above: Order Comment: [facility] Testing performed at: EZ, [facility] [facility],, [address] [place] [address], , Network Account Manager: Angela Feng MD,PhD,MANOHAR [facility] Collection Date/Time: [facility] Results Received Date/Time: [facility] Reported Date/Time: Performed By: #### 1 6963X, 13622D, 19279V, 73125Y, 57717R, 04242Q, 97611 #### [facility] Default [address] [place] [address] SEROTYPE 4 (4) 0.4 Normal [facility] [employer] Comment on above: Order Comment: [facility] Testing performed at: EZ, [facility] [facility],, [address] [place] [address], , Network Account Manager: Angela Feng MD,PhD,MANOHAR [facility] Collection Date/Time: [facility] Results Received Date/Time: [facility] Reported Date/Time: Performed By: #### 1 6963X, 48615N, 80234Z, 75186U, 06879W, 88560W, 16375 #### [facility] Default [address] [place] [address] SEROTYPE 43 (11A) 0.9 Normal [facility] Comment on above: Order Comment: [facility] Testing performed at: [facility], [facility] [facility],, [address] [place] [address], , Network Account Manager: Angela Feng MD,PhD,MANOHAR [facility] Collection Date/Time: [facility] Results Received Date/Time: [facility] Reported Date/Time: Performed By: #### 1 6963X, 64341B, 37671R, 10179K, 90564D, 71402I, 77412 #### [facility] Default [address] [place] [address] SEROTYPE 5 (5) 0.6 Normal [facility] Specialist Comment on above: Order Comment: [facility] Testing performed at: [facility], [facility] [facility],, [address] [place] [address], , Network Account Manager: Angela Feng MD,PhD,MANOHAR [facility] Collection Date/Time: [facility] Results Received Date/Time: [facility] Reported Date/Time: Performed By: #### 1 6963X, 67701H, 09763B, 91722F, 69982N, 88577E, 10204 #### [facility] Default [address] [place] [address] SEROTYPE 51 (7F) 0.4 Normal [facility] Specialist Comment on above: Order Comment: [facility] Testing performed at: [facility], [facility] [facility],, [address] [place], [address], Network Account Manager: nAgela Feng MD,PhD,MANOHAR [facility] Collection Date/Time: [facility] Results Received Date/Time: [facility] Reported Date/Time: Performed By: #### 1 6963X, 11584N, 45509F, 79938U, 56774D, 52158H, 39955 #### [facility] Default [address] [place] [address] SEROTYPE 54 (15B) <0.3 [facility] Comment on above: Order Comment: [facility] Testing performed at: [facility], [facility],, [address] [place] [address], [address], Network Account Manager: Angela Feng MD,PhD,MANOHAR [facility] Collection Date/Time: [facility] Results Received Date/Time: [facility] Reported Date/Time: Performed By: #### 1 6963X, 11000R, 54638G, 10569O, 22612G, 71593T, 76147 #### [facility] Default [address] [place] [address] SEROTYPE 56 (18C) 1.1 [facility] Comment on above: Order Comment: [facility] Testing performed at: EZ, [facility] [facility],, [address] [place] [address], , Network Account Manager: Angela Feng MD,PhD,MANOHAR [facility] Collection Date/Time: [facility] Results Received Date/Time: [facility] Reported Date/Time: Performed By: #### 1 6963X, 85777Q, 53443Y, 21552P, 62032R, 36988F, 35822 #### [facility] Default [address] [place] [address] SEROTYPE 57 (19A) 0.4 Normal [place] [employer] Comment on above: Order Comment: [facility] Testing performed at: [facility], [facility] [facility],, [address] [place], [place], , Network Account Manager: Angela Feng MD,PhD,MANOHAR Quest Collection Date/Time: [facility] Results Received Date/Time: [facility] Reported Date/Time: Performed By: #### 1 6963X, 53923F, 62359K, 19459R, 37149T, 13873Z, 58526 #### [facility] Default [address] [place] [address] SEROTYPE 68 (9V) 0.5 Normal [facility] [employer] Comment on above: Order Comment: [facility] Testing performed at: [facility], [facility] [facility],, [address] [place] [address], , Network Account Manager: Angela Feng MD,PhD,MANOHAR Quest Collection Date/Time: Quest Results Received Date/Time: [facility] Reported Date/Time: Performed By: #### 1 [id number], 60213J, 82077Y, 44555M, 41131A, 06245V, 80353 #### [facility] Default [address] [place] [address] SEROTYPE 70 (33F) 0.[address] [facility] Mathematician Research Comment on above: Order Comment: [facility] Testing performed at: [facility], [facility] [facility],, [address] [place], [place], , Network Account Manager: Angela Feng MD,PhD,MANOHAR [facility] Collection Date/Time: [facility] [...] serotype-specific titers may have less robust responses. [employer] uses a multi-analyte immunodetection (MAID) method. The method employs the [employer] flow cytometric system which measures multiple analytes [...] analytical performance characteristics have been determined by [employer]. It has not been cleared or approved by FDA. This assay has been validated pursuant to the CLIA regulations and used for clinical purposes. For additional information, please refer to http://education.KidzVuz.This Week In/faq/RKF453 (This link is being provided for informational/ educational purposes only.) Performed By: #### 1 6963X, 95043J, 75864W, 13280N, 99048W, 21043Z, 06350 #### [facility] Default [address] [place] [address] SEROTYPE 8 (8) 0.3 Normal [facility] [employer]ian Research Comment on above: Order Comment: [facility] Testing performed at: [facility] [facility],, [address] [place], [address], Network Account Manager: Angela Feng MD,PhD,MANOHAR [facility] Collection Date/Time: [facility] Results Received Date/Time: [facility] Reported Date/Time: Performed By: #### 1 6963X, 93355F, 63830Z, 72879P, 66148B, 55129K, 72924 #### [facility] Default [address] [place] [address] SEROTYPE 9 (9N) <0.3 Normal [facility] Mathematician Research Comment on above: Order Comment: [facility] Testing performed at: [facility], [employer] [facility],, [address] [place], [address], Network Account Manager: Angela Feng MD,PhD,MANOHAR [facility] Collection Date/Time: [facility] Results Received Date/Time: [facility] Reported Date/Time: Performed By: #### 1 6963X, 13878R, 98623G, 11390M, 65506R, 48067G, 95203 #### [facility] Default [address] [place] [address] Chart Updateon 04-12-2021 Chart Update Chart Update Shiv had a migraine today and was unable to attend class. Signatures Electronically signed by : Chica Whitmore, JOSE-LORRY WEIGHER WIRE TEMPERER-PULP BLEACHER; Apr 12 2021 3:16PM EST (Author) Normal [facility] COVID + FLU Quick Testingon 04-04-2021 SARS-CoV-2 (COVID-19) RNA PAMELA+probe Ql (Unsp spec) Negative [facility] Other COVID + FLU Quick Testing Negative [facility] Other Office Visit (Pediatric Neur ology)on 03-22-2021 Follow-up visit Diagnoses/Problems Migraine (346.90) (G43.909) Anxiety (300.00) (F41.9) Orders Migraine Start: Verapamil HCl - 40 MG Oral Tablet; TAKE 1 TABLET 3 times daily MRI Brain without Contrast; Status:Hold For - Scheduling; Requested for:22Mar2021; Does patient have exposure to metal fragments? : N Radiologist to Determine Optimal Study : Y Requesting physician's phone/pager number? : [phone] Does the patient have a Cochlear Implant, Pacemaker, Defibrilator, Pacing Wire, Brain Aneurysm Clip, Implanted Nerve or Bone Graft Simulator, Implanted Breast Tissue Grocery Sacker, Glucose Monitor, or Neulasta Device? : No [...] updates. My nurse is Yolanda Calvillo at [phone]. 8. Follow up in 2-3 months with [...] at headach (more content not included)... Normal [facility] XR Abdomen Single View (KUB) *on 03-08-2021 XR Abdomen Single View (KUB)* HISTORY: Nausea and generalized abdominal pain. Chronic constipation. COMPARISON: CT 11/12/2019 RESULT: Nonspecific nondilated bowel gas pattern. Feces throughout the colon. No abnormal calcifications. No acute osseous findings. Lung bases unremarkable. No other significant abnormality. IMPRESSION: No acute radiographic findings. Report reported and signed by Butch Sanchez on 03/08/20211941 Normal [facility] Mathematician Research COVID Quick Testingon 2021 Result Negative [facility] Other COVID Quick Testingon 2020 Result Negative [facility] Other COVID Quick Testingon 2020 Result Negative [facility] Other Quick Strepon 11-19-2020 S. pyogenes Org specific cx Ql (Throat) Negative [facility] Other Quick Strep [facility] Other CNTHERAPYon 11-13-2020 CNTHERAPY OT/PT/Speech Visit ([facility]) SHIV EVANGELISTA ([id number]) 2 F Date Time Provider Department 11/13/20 10:45 AM LYNN POTTS PTAGauri Date Time Provider Department Center 11/13/2020 10:45 AM [id number] POTTS PTAGauri [facility] Reason for Visit: Physical Therapy [503] [...] mouth every 4 hours as needed. - .5/, 1.5 mg-30 mcg (21)/75 mg (7) tablet Take 1 tablet by mouth once daily. - lamoTRIgine ER (LAMICTAL XR) 50 mg 24 hr tablet Take 2 tablets by mouth twice daily. Normal [facility] CNTHERAPYon 11-09-2020 CNTHERAPY OT/PT/Speech Visit ([facility]) SHIV EVANGELISTA ([id number]) 2 F Date Time Provider Department 11/09/20 11:30 AM ALEXANDRA SUAREZ Date Time Provider Department Center 11/09/2020 11:30 AM [id number] SUAREZ [facility] Reason for Visit: [...] Planned: 8 Planned Treatment Interventions: Therapeutic exercise (80297);Neuromuscula r re-education (42994);Manual therapy (97481);Therapeutic activities (86271);Self-penitentiary management (02026);Patient/Fami ly/Caregiver Education;Biofeedbac k Pelvic (01124,44494) PLAN FOR NEXT VISIT: toileting positions, colon [...] Family Intake Information: Prescription present Previous Treatment: Channel Business Manager (more content not included)... Normal [facility] Office Visit (Pediatric Neur ology)on 08-30-2020 [...] updates. My nurse is Yolanda Calvillo at [phone]. 8. Follow up in 2-3 months with updates in the interim. Chief Complaint Follow up POTS Accompanied by mother. History of Present Illness Shiv is a 20 year old young woman with POTS, anxiety and headaches. She is taking 2 summer courses. [facility] and is taking her courses through [employer] [facility]. She stopped all her meds because [...] holidays as well. She still works at [employer]. She denies any thoughts about hurting herself [...] MG Oral Tablet Vitals Vital Signs Recorded: [id number] 01:02PM Kudkof537 lb 7.31 oz 2-20 Weight Omtlvwguyp82 % Physical Exam Constitutional - Well dressed, [...] bilaterally. Fundoscopi (more content not included)... Normal [facility] Adulton Psychiatry Adult No report was sent Normal [facility] Provider Orderson 01-17-2020 Provider Orders [id number] Normal [facility] Vital Signs Date Time Vital Sign Value Performing Clinician Facility 04-29-2024 17:05-0400 Body height 157.48 cm Ok Tyson DO Work Phone: [facility] 04-29-2024 17:05-0400 Body weight 72.57 kg Ok Tyson DO Work Phone: [facility] 04-29-2024 16:56-0400 Body temperature 97.3 [degF] Ok Tyson DO Work Phone: [facility] 04-29-2024 16:56-0400 Diastolic blood pressure 74 mm[Hg] Ok Vaschak DO Work Phone: [facility] 04-29-2024 16:56-0400 Heart rate 91 /min Ok Vaschak DO Work Phone: [facility] 04-29-2024 16:56-0400 Respiratory rate 16 /min Ok Vaschak DO Work Phone: [facility] 04-29-2024 16:56-0400 Systolic blood pressure 122 mm[Hg] Ok Vaschak DO Work Phone: [facility] 04-29-2024 16:55-0400 SaO2% (BldA) [Mass fraction] 97 % Ok Sotochak DO Work Phone: [facility] 04-22-2024 15:19-0400 Body mass index (BMI) [Ratio] 29.41 kg/m2 Linda Yesica PA Work Phone: [facility] 04-22-2024 15:19-0400 Body weight 72.94 kg Linda Amoret PA Work Phone: [facility] 04-22-2024 15:19-0400 Diastolic blood pressure 60 mm[Hg] Linda Yesica PA Work Phone: [facility] 04-22-2024 15:19-0400 Systolic blood pressure 120 mm[Hg] Linda Yesica PA Work Phone: [facility] 04-08-2024 15:36-0500 Body mass index (BMI) [Ratio] 28.37 kg/m2 Linda Yesica PA Work Phone: [facility] 04-08-2024 15:36-0500 Body weight 70.36 kg Linda Amoret PA Work Phone: [facility] 04-08-2024 15:36-0500 Diastolic blood pressure 68 mm[Hg] Linda Amoret PA Work Phone: [facility] 04-08-2024 15:36-0500 Systolic blood pressure 126 mm[Hg] Linda Robert PA Work Phone: [facility] 03-25-2024 16:03-0500 Body mass index (BMI) [Ratio] 28.17 kg/m2 Linda Robert PA Work Phone: [facility] 03-25-2024 16:03-0500 Body weight 69.85 kg Linda Robert PA Work Phone: [facility] 03-25-2024 16:03-0500 Diastolic blood pressure 68 mm[Hg] Linda Robert PA Work Phone: [facility] 03-25-2024 16:03-0500 Systolic blood pressure 116 mm[Hg] Linda Robert PA Work Phone: [facility] 03-25-2024 10:13-0500 Diastolic blood pressure 67 mm[Hg] Ok Tyson DO Work Phone: [facility] 03-25-2024 10:13-0500 Heart rate 83 /min Ok Goodenk DO Work Phone: [facility] 03-25-2024 10:13-0500 Respiratory rate 18 /min Ok Goodenk DO Work Phone: [facility] 03-25-2024 10:13-0500 SaO2% (BldA) [Mass fraction] 96 % Ok Tyson DO Work Phone: [facility] 03-25-2024 10:13-0500 Systolic blood pressure 118 mm[Hg] Ok Goodenk DO Work Phone: [facility] 03-25-2024 08:39-0500 Body height 157.48 cm Ok Tyson DO Work Phone: [facility] 03-25-2024 08:39-0500 Body temperature 98.2 [degF] Ok Tyson DO Work Phone: [facility] 03-25-2024 08:39-0500 Body weight 70 kg Ok Tyson DO Work Phone: [facility] 03-25-2024 08:39-0500 Diastolic blood pressure 58 mm[Hg] Ok Tyson DO Work Phone: [facility] 03-25-2024 08:39-0500 Heart rate 80 /min Ok Tyson DO Work Phone: [facility] 03-25-2024 08:39-0500 Respiratory rate 16 /min Ok Tyson DO Work Phone: [facility] 03-25-2024 08:39-0500 SaO2% (BldA) [Mass fraction] 98 % Ok Tyson DO Work Phone: [facility] 03-25-2024 08:39-0500 Systolic blood pressure 122 mm[Hg] Ok Tyson DO Work Phone: [facility] 03-11-2024 10:34-0500 Body mass index (BMI) [Ratio] 27.33 kg/m2 Navid Alondra DO Work Phone: [facility] 03-11-2024 10:34-0500 Body weight 67.77 kg Navid Alondra DO Work Phone: [facility] 03-11-2024 10:34-0500 Diastolic blood pressure 68 mm[Hg] Navid Alondra DO Work Phone: [facility] 03-11-2024 10:34-0500 Systolic blood pressure 122 mm[Hg] Navid Alondra DO Work Phone: [facility] 02-25-2024 15:37-0500 Body mass index (BMI) [Ratio] 27.09 kg/m2 Navid Alondra DO Work Phone: [facility] 02-25-2024 15:37-0500 Body weight 67.19 kg Navid Alondra DO Work Phone: [facility] 02-25-2024 15:37-0500 Diastolic blood pressure 66 mm[Hg] Navid Alondra DO Work Phone: [facility] 02-25-2024 15:37-0500 Systolic blood pressure 114 mm[Hg] Navid Alondra DO Work Phone: [facility] 02-09-2024 16:38-0500 Diastolic blood pressure 60 mm[Hg] Rahel Didion ALUMINUM SIDING INSTALLER Work Phone: [facility] 02-09-2024 16:38-0500 Heart rate 78 /min Rahel Didion ALUMINUM SIDING INSTALLER Work Phone: [facility] 02-09-2024 16:38-0500 Respiratory rate 16 /min Rahel Didion ALUMINUM SIDING INSTALLER Work Phone: [facility] 02-09-2024 16:38-0500 SaO2% (BldA) [Mass fraction] 98 % Rahel Didion ALUMINUM SIDING INSTALLER Work Phone: [facility] 02-09-2024 16:38-0500 Systolic blood pressure 118 mm[Hg] Rahel Didion ALUMINUM SIDING INSTALLER Work Phone: [facility] 01-22-2024 16:40-0500 Body mass index (BMI) [Ratio] 26.48 kg/m2 Linda MITCHELL Work Phone: [facility] 01-22-2024 16:40-0500 Body weight 65.68 kg Linda MITCHELL Work Phone: [facility] 01-22-2024 16:40-0500 Diastolic blood pressure 60 mm[Hg] Linda MITCHELL Work Phone: [facility] 01-22-2024 16:40-0500 Systolic blood pressure 118 mm[Hg] Linda MITCHELL Work Phone: [facility] 01-12-2024 15:14-0500 Body height 157.5 cm Ok Tyson DO Work Phone: [facility] 01-12-2024 15:14-0500 Body mass index (BMI) [Ratio] 25.61 kg/m2 Ok Tyson DO Work Phone: [facility] 01-12-2024 15:14-0500 Body weight 63.5 kg Ok Tyson DO Work Phone: [facility] 01-12-2024 15:14-0500 Diastolic blood pressure 60 mm[Hg] Ok Tyson DO Work Phone: [facility] 01-12-2024 15:14-0500 Heart rate 87 /min Ok Tyson DO Work Phone: [facility] 01-12-2024 15:14-0500 SaO2% (BldA) [Mass fraction] 99 % Ok Tyson DO Work Phone: [facility] 01-12-2024 15:14-0500 Systolic blood pressure 114 mm[Hg] Ok Tyson DO Work Phone: [facility] 01-02-2024 17:15-0500 Body mass index (BMI) [Ratio] 25.24 kg/m2 Yaritza Gonzalez ALUMINUM SIDING INSTALLER Work Phone: [facility] 01-02-2024 17:15-0500 Body temperature 98.01 [degF] Yaritza Gonzalez ALUMINUM SIDING INSTALLER Work Phone: [facility] 01-02-2024 17:15-0500 Body weight 62.6 kg Yaritza Gonzalez ALUMINUM SIDING INSTALLER Work Phone: [facility] 01-02-2024 17:15-0500 Heart rate 100 /min Yaritza Gonzalez ALUMINUM SIDING INSTALLER Work Phone: [facility] 01-02-2024 17:15-0500 SaO2% (BldA) [Mass fraction] 99 % Yaritza Gonzalez ALUMINUM SIDING INSTALLER Work Phone: [facility] 12-24-2023 15:56-0500 Body mass index (BMI) [Ratio] 25.13 kg/m2 Navid Alondra DO Work Phone: [facility] 12-24-2023 15:56-0500 Body weight 62.32 kg Navid Alondra DO Work Phone: [facility] 12-24-2023 15:56-0500 Diastolic blood pressure 74 mm[Hg] Navid Alondra DO Work Phone: [facility] 12-24-2023 15:56-0500 Systolic blood pressure 116 mm[Hg] Navid Alondra DO Work Phone: [facility] 12-24-2023 13:55-0500 Body mass index (BMI) [Ratio] 25.28 kg/m2 Suzan Patrick ALUMINUM SIDING INSTALLER Work Phone: [facility] 12-24-2023 13:55-0500 Body temperature 98.71 [degF] Suzan Patrick ALUMINUM SIDING INSTALLER Work Phone: [facility] 12-24-2023 13:55-0500 Body weight 62.7 kg Suzan Patrick ALUMINUM SIDING INSTALLER Work Phone: [facility] 12-24-2023 13:55-0500 Diastolic blood pressure 62 mm[Hg] Suzan Patrick ALUMINUM SIDING INSTALLER Work Phone: [facility] 12-24-2023 13:55-0500 Heart rate 96 /min Suzan Patrick ALUMINUM SIDING INSTALLER Work Phone: [facility] 12-24-2023 13:55-0500 SaO2% (BldA) [Mass fraction] 97 % Suzan Patrick ALUMINUM SIDING INSTALLER Work Phone: [facility] 12-24-2023 13:55-0500 Systolic blood pressure 118 mm[Hg] Suzan Patrick ALUMINUM SIDING INSTALLER Work Phone: [facility] 11-25-2023 14:49-0400 Body mass index (BMI) [Ratio] 25.15 kg/m2 Navid Alondra DO Work Phone: [facility] 11-25-2023 14:49-0400 Body weight 62.37 kg Navid Alondra DO Work Phone: [facility] 11-25-2023 14:49-0400 Diastolic blood pressure 68 mm[Hg] Navid Alondra DO Work Phone: [facility] 11-25-2023 14:49-0400 Systolic blood pressure 118 mm[Hg] Navid Cantu DO Work Phone: [facility] 10-23-2023 15:19-0400 Body mass index (BMI) [Ratio] 24.4 kg/m2 Nom Nurse [facility] 10-23-2023 15:19-0400 Body weight 60.51 kg Nom Nurse [facility] 10-23-2023 15:19-0400 Diastolic blood pressure 70 mm[Hg] [facility] Nurse [facility] 10-23-2023 15:19-0400 Systolic blood pressure 120 mm[Hg] [facility] Nurse [facility] 07-04-2023 10:15-0400 Body height 157.48 cm DO Ok [email or web address].com Work Phone: [facility] 07-04-2023 10:15-0400 Body mass index (BMI) [Ratio] 23.8 kg/m2 DO Ok [email or web address] Work Phone: [facility] 07-04-2023 10:15-0400 Body weight 58.96 kg DO Ok [employer]en[employer] Work Phone: [facility] 07-04-2023 10:15-0400 Diastolic blood pressure 70 mm[Hg] DO Ok Tyson Work Phone: [facility] 07-04-2023 10:15-0400 Heart rate 72 /min DO Ok Tyson Work Phone: [facility] 07-04-2023 10:15-0400 Respiratory rate 18 /min DO Ok Tyson Work Phone: [facility] 07-04-2023 10:15-0400 SaO2% (BldA) [Mass fraction] 98 % DO Ok Marbella Work Phone: [facility] 07-04-2023 10:15-0400 Systolic blood pressure 124 mm[Hg] DO Ok Giacomok Work Phone: [facility] 09-20-2022 08:00-0400 Body temperature 97.9 [degF] DO Ok Vaschak Work Phone: [facility] 09-20-2022 08:00-0400 Diastolic blood pressure 74 mm[Hg] DO Ok Vaschak Work Phone: [facility] 09-20-2022 08:00-0400 Heart rate 73 /min DO Ok Giacomok Work Phone: [facility] 09-20-2022 08:00-0400 Respiratory rate 18 /min DO Ok Giacomok Work Phone: [facility] 09-20-2022 08:00-0400 SaO2% (BldA) [Mass fraction] 98 % DO Ok Charleschak Work Phone: [facility] 09-20-2022 08:00-0400 Systolic blood pressure 118 mm[Hg] DO Ok Giacomok Work Phone: [facility] 09-18-2022 08:29-0400 Body height 157.48 cm DO Ok Giacomok Work Phone: [facility] 09-18-2022 08:29-0400 Body weight 72.57 kg DO Ok Giacomok Work Phone: [facility] 08-10-2022 17:06-0400 Diastolic blood pressure 78 mm[Hg] DO Ok Giacomok Work Phone: [facility] 08-10-2022 17:06-0400 Heart rate 105 /min DO Ok Giacomok Work Phone: [facility] 08-10-2022 17:06-0400 Systolic blood pressure 133 mm[Hg] DO Ok Charleschak Work Phone: [facility] 08-10-2022 17:00-0400 Respiratory rate 16 /min DO Ok Charleschak Work Phone: [facility] 08-10-2022 16:38-0400 SaO2% (BldA) [Mass fraction] 98 % DO Ok Vaschak Work Phone: [facility] 11-25-2021 23:45-0400 Diastolic blood pressure 71 mm[Hg] [facility] 11-25-2021 23:45-0400 Heart rate 77 /min [facility] 11-25-2021 23:45-0400 Hourly Rounding Rayray [facility] 11-25-2021 23:45-0400 Respiratory rate 18 /min [facility] 11-25-2021 23:45-0400 SaO2% (BldA) [Mass fraction] 100 % [facility] 11-25-2021 23:45-0400 Systolic blood pressure 105 mm[Hg] [facility] 11-25-2021 22:00-0400 Diastolic blood pressure 83 mm[Hg] [facility] 11-25-2021 22:00-0400 Heart rate 69 /min [facility] 11-25-2021 22:00-0400 Hourly Rounding Rayray [facility] 11-25-2021 22:00-0400 Respiratory rate 14 /min [facility] 11-25-2021 22:00-0400 Systolic blood pressure 123 mm[Hg] [facility] 11-25-2021 19:00-0400 Body temperature 98.42 [degF] [facility] 11-25-2021 19:00-0400 Diastolic blood pressure 81 mm[Hg] [facility] 11-25-2021 19:00-0400 Heart rate 79 /min [facility] 11-25-2021 19:00-0400 Hourly Rounding Rayray [facility] 11-25-2021 19:00-0400 Respiratory rate 12 /min [facility] 05-30-2021 12:44-0400 Body height 160 cm Terence Pyle Work Phone: KF-Bqsintmva-Hickjcn y H DO Work Phone: 05-30-2021 12:44-0400 Body mass index (BMI) [Ratio] 19.65 kg/m2 Terence Pyle Work Phone: ID-Owrnjzbri-Mrkafpz y H DO Work Phone: 05-30-2021 12:44-0400 Body surface area Derived from formula 1.5 m2 Terence Pyle Work Phone: TF-Yvlpxieja-Oyumiuq y H DO Work Phone: 05-30-2021 12:44-0400 Body temperature 98.5 [degF] Terence Pyle Work Phone: GG-Cdglzvwhg-Msugfau y H DO Work Phone: 05-30-2021 12:44-0400 Body weight 50.3 kg Terence Pyle Work Phone: DX-Mbnetfzpn-Sezrxhr y H DO Work Phone: 05-30-2021 12:44-0400 Diastolic blood pressure 74 mm[Hg] Terence Pyle Work Phone: BI-Avuymbwwg-Uqsuqiy y H DO Work Phone: 05-30-2021 12:44-0400 Heart rate 74 /min Terence Pyle Work Phone: IN-Gffkpwgvo-Eeqnwib y H DO Work Phone: 05-30-2021 12:44-0400 Systolic blood pressure 120 mm[Hg] Terence Pyle Work Phone: BP-Fzsnlaoei-Jdtrwfn y H DO Work Phone: 05-17-2021 23:00-0400 Diastolic blood pressure 61 mm[Hg] [facility] 05-17-2021 23:00-0400 Heart rate 81 /min [facility] 05-17-2021 23:00-0400 SaO2% (BldA) [Mass fraction] 97 % [facility] 05-17-2021 23:00-0400 Systolic blood pressure 106 mm[Hg] [facility] 05-17-2021 20:48-0400 Body temperature 98.6 [degF] [facility] 05-17-2021 20:48-0400 Diastolic blood pressure 83 mm[Hg] [facility] 05-17-2021 20:48-0400 Heart rate 97 /min [facility] 05-17-2021 20:48-0400 Respiratory rate 16 /min [facility] 05-17-2021 20:48-0400 SaO2% (BldA) [Mass fraction] 98 % [facility] 05-17-2021 20:48-0400 Systolic blood pressure 128 mm[Hg] [facility] 04-04-2021 14:45-0500 Body height 157.48 cm Albert [place] Other [facility] Other 04-04-2021 14:45-0500 Body mass index (BMI) [Ratio] 20.3 kg/m2 Albert [place] Other [facility] Other 04-04-2021 14:45-0500 Body temperature 100 [degF] Albert White Other [facility] Other 04-04-2021 14:45-0500 Body weight 50.35 kg Albert White Other [facility] Other 04-04-2021 14:45-0500 Respiratory rate 16 /min Albert White Other [facility] Other 04-04-2021 14:45-0500 SaO2% (BldA) [Mass fraction] 99 % Albert White Other [facility] Other 2021 10:00-0500 Body height 157.48 cm Pankaj Berger Other [facility] Other 2021 10:00-0500 Body mass index (BMI) [Ratio] 20.3 kg/m2 Pankaj Berger Other [facility] Other 2021 10:00-0500 Body weight 50.35 kg Pankaj Berger Other [facility] Other 2021 10:00-0500 Diastolic blood pressure 67 mm[Hg] Pankaj Berger Other [facility] Other 2021 10:00-0500 Systolic blood pressure 108 mm[Hg] Pankaj Berger Other [facility] Other 12-13-2020 13:10-0400 Body height 157.48 cm Chacho Domingo Other [facility] Other 12-13-2020 13:10-0400 Body mass index (BMI) [Ratio] 21.03 kg/m2 Chacho Domingo Other [facility] Other 12-13-2020 13:10-0400 Body temperature 98.4 [degF] Chacho Domingo Other [facility] Other 12-13-2020 13:10-0400 Body weight 52.16 kg Chacho Domingo Other [facility] Other 12-13-2020 13:10-0400 Diastolic blood pressure 81 mm[Hg] Chacho Domingo Other [facility] Other 12-13-2020 13:10-0400 SaO2% (BldA) [Mass fraction] 100 % Chacho Domingo Other [facility] Other 12-13-2020 13:10-0400 Systolic blood pressure 127 mm[Hg] Chacho Domingo Other [facility] Other 11-19-2020 13:15-0400 Body height 157.48 cm Albert White Other [facility] Other 11-19-2020 13:15-0400 Body mass index (BMI) [Ratio] 20.12 kg/m2 Albert White Other [facility] Other 11-19-2020 13:15-0400 Body temperature 98.9 [degF] Albert White Other [facility] Other 11-19-2020 13:15-0400 Body weight 49.9 kg Albert White Other [facility] Other 11-19-2020 13:15-0400 Diastolic blood pressure 91 mm[Hg] Albert White Other [facility] Other 11-19-2020 13:15-0400 SaO2% (BldA) [Mass fraction] 100 % Albert White Other [facility] Other 11-19-2020 13:15-0400 Systolic blood pressure 149 mm[Hg] Albert White Other [facility] Other 11-06-2020 15:00-0400 Body weight 51.26 kg Pankaj Berger Other [facility] Other 08-30-2020 13:02-0400 Body weight 56 kg Terence Pyle Work Phone: BX-Zvdemtjyaj-Kecjnq nds Work Phone: 08-30-2020 13:02-0400 42 1 Terence Pyle Work Phone: VB-Avykgmahpf-Npfsrq nds Work Phone: Comment on above: -20_WPerc 11-05-2019 12:33-0400 BMI (Body Mass Index) 22.76 kg/m2 Chicaandra Finkwell YV-Dqjnlrifcw-Elyyqm ogy-Admin RBC 585 Work Phone: 11-05-2019 12:33-0400 Body weight 56.81 kg Chicaandra Finkwell CX-Opemvayrqz-B eurol ogy-Admin RBC 585 Work Phone: 11-05-2019 12:33-0400 BP Diastolic 77 mm[Hg] Chica Finkwell WI-Dksnpmjwss-U eurol ogy-Admin RBC 585 Work Phone: 11-05-2019 12:33-0400 BP Systolic 127 mm[Hg] Chica Haim EG-Lwjphseaje-G eurol ogy-Admin RBC 585 Work Phone: 11-05-2019 12:33-0400 BSA (Body Surface Area) 1.57 m2 Chica Haim XI-Csnlichxzv-Zpijdr ogy-Admin RBC 585 Work Phone: 11-05-2019 12:33-0400 Height 158 cm Chica Haim ZP-Mawklemgmp-I eurol ogy-Admin RBC 585 Work Phone: 11-05-2019 12:33-0400 21 1 Chica Haim LN-Upzcgsqcpz-M eurol ogy-Admin RBC 585 Work Phone: Comment on above: 2-20 Stature Percentile 11-05-2019 12:33-0400 49 1 Chica Haim YP-Huzqtesrhx-Q eurol ogy-Admin RBC 585 Work Phone: Comment on above: 2-20 Weight Percentile 11-05-2019 12:33-0400 64 1 Chica Haim HY-Kawbsedcqh-W eurol ogy-Admin RBC 585 Work Phone: Comment on above: BMI Percentile 08-25-2019 12:37-0400 BMI (Body Mass Index) 22.79 kg/m2 Chica Haim XZ-Gudtpjcdny-Bfzuis og-Admin RBC 585 Work Phone: 08-25-2019 12:37-0400 Body weight 56.9 kg Chica Haim UP-Pvfkdykcud-I eurol og-Admin RBC 585 Work Phone: 08-25-2019 12:37-0400 BP Diastolic 76 mm[Hg] Chica Haim UN-Nbkkxptjid-V eurol og-Admin RBC 585 Work Phone: 08-25-2019 12:37-0400 BP Systolic 126 mm[Hg] Chica Haim JQ-Ezcikcjxid-N eurol og-Admin RBC 585 Work Phone: 08-25-2019 12:37-0400 BSA (Body Surface Area) 1.57 m2 Chica Haim YG-Buhecvipok-Ovfhrz og-Admin RBC 585 Work Phone: 08-25-2019 12:37-0400 Height 158 cm Chica Whitmore KS-Fjnjshbjxl-M eurol og-Admin RBC 585 Work Phone: 08-25-2019 12:37-0400 21 1 Chica Whitmore HA-Nnfhwlpaos-G eurol og-Admin RBC 585 Work Phone: Comment on above: 2-20 Stature Percentile 08-25-2019 12:37-0400 51 1 Chica Finkwell FS-Fhhxofpzjx-U eurol og-Admin RBC 585 Work Phone: Comment on above: 2-20 Weight Percentile 08-25-2019 12:37-0400 65 1 Chica Whitmore IG-Cztuzozlzf-A eurol og-Admin RBC 585 Work Phone: Comment on above: BMI Percentile Encounters Encounter Date Encounter Type Care Provider Facility Start: 04-29-2024 End: 04-29-2024 ambulatory Ok Tyson DO Work Phone: [facility] Work Phone: Start: 04-29-2024 End: 04-29-2024 Patient encounter procedure Ok Tyson DO Work Phone: [facility]-3 East Labor - O/P Start: 04-29-2024 End: 04-29-2024 Clinisync Result Encounter Generic External Data Provider [facility] External Department Unsolicited Start: 04-29-2024 End: 04-29-2024 Clinisync Result Encounter Generic External Data Provider [facility] External Department Unsolicited Start: 04-27-2024 End: 04-27-2024 ambulatory NAVID NAVASO Not Available Start: 04-22-2024 End: 04-22-2024 flow sheet Linda MITCHELL Work Phone: [facility] Comment on above: 34 weeks gestation o f ; Third trimester ; size inconsistent with dates; Gestational diabetes mellitus (GDM), antepartum, gestational diabetes method of control unspecified Start: 04-22-2024 End: 04-22-2024 ambulatory LINDA ROBERT Not Available Start: 04-22-2024 End: 04-22-2024 Bamboo flowsheet Linda Robert PA Work Phone: [facility] Start: 04-22-2024 End: 04-22-2024 Bamboo flowsheet Linda Robert PA Work Phone: [facility] Start: 04-22-2024 End: 04-22-2024 Clinisync Result Encounter Generic External Data Provider [facility] External Department Unsolicited Start: 04-08-2024 End: 04-08-2024 Office outpatient visit 15 minutes Linda Robert PA Work Phone: [facility] Comment on above: Third trimester preg talib; 32 weeks gestation of Start: 04-08-2024 End: 04-08-2024 ambulatory LINDA ROBERT Not Available Start: 03-25-2024 End: 03-25-2024 ambulatory LINDA ROBERT Not Available Start: 03-25-2024 End: 03-25-2024 Office outpatient visit 15 minutes Linda Robert PA Work Phone: [facility] Comment on above: Third trimester preg talib; 30 weeks gestation of Start: 03-25-2024 End: 03-25-2024 Bamboo flowsheet Linda Robert PA Work Phone: [facility] Start: 03-25-2024 End: 03-25-2024 Bamboo flowsheet Linda MITCHELL Work Phone: [facility] Start: 03-25-2024 End: 03-25-2024 Patient encounter procedure Ok Tyson DO Work Phone: [facility]-3 East Labor and Delivery Work Phone: Start: 03-25-2024 End: 03-25-2024 ambulatory Ok Tyson DO Work Phone: [facility] Work Phone: Start: 03-25-2024 End: 03-25-2024 Emergency department patient visit Ok Tyson DO Work Phone: [facility]-Emergency Room Work Phone: Start: 03-11-2024 End: 03-11-2024 [...] Office outpatient visit 15 minutes Rahel Molina ALUMINUM SIDING INSTALLER Work Phone: [facility] IM Comment on above: Acute non-recurrent pansinusitis (Primary Dx); Fever, unspecified fever cause Start: 02-09-2024 End: 02-09-2024 ambulatory RAHEL L DIDION Not Available Start: 01-22-2024 End: 01-22-2024 Office outpatient visit 15 minutes Linda MITCHELL Work Phone: [facility] Comment on above: Second trimester pre gnancy; 21 weeks gestation of ; Diabetes mellitus screening Start: 01-22-2024 End: 01-22-2024 ambulatory LINDA ROBERT Not Available Start: 01-22-2024 End: 01-22-2024 Bamboo flowsheet Linda Robert PA Work Phone: [facility] Start: 01-22-2024 End: 01-22-2024 Bamboo flowsheet Linda Robert PA Work Phone: [facility] Start: 01-12-2024 End: 01-12-2024 Periodic preventive med est patient 18-39 yrs Ok Tyson DO Work Phone: [facility] Comment on above: Wellness examination (Primary Dx); Right leg pain; Celiac disease (CMS/HCC); Acquired right calf asymmetry Start: 01-12-2024 End: 01-12-2024 ambulatory OK TYSON Not Available Start: 01-12-2024 End: 01-12-2024 Patient encounter status Ok Tyson DO Work Phone: [facility] Start: 01-03-2024 End: 01-03-2024 Patient encounter procedure Ok Tyson DO Work Phone: [facility]-Lab [place] Work Phone: Start: 01-03-2024 End: 01-03-2024 ambulatory Ok Tyson Facility:[facility] Start: 01-02-2024 End: 01-02-2024 Office outpatient visit 25 minutes Yaritza Gonzalez ALUMINUM SIDING INSTALLER Work Phone: [facility] Comment on above: Pain of left calf (P rimary Dx); Swelling of calf Start: 01-02-2024 End: 01-02-2024 ambulatory YARITZA GONZALEZ Not Available Start: 12-24-2023 End: 12-24-2023 Patient encounter procedure Navid Alondra DO Work Phone: [facility] Healthcare Work Phone: Start: 12-24-2023 End: 12-24-2023 Periodic preventive med est patient 18-39 yrs Navid Alondra DO Work Phone: [facility] [...] Office outpatient visit 25 minutes Suzan Patrick ALUMINUM SIDING INSTALLER Work Phone: [facility] Comment on above: Acute [...] outpatient visit 5 minutes [facility] Laondra Nurse [facility] Comment on above: GA: 8w5d Start: 08-06-2023 End: 08-06-2023 ambulatory TERENCE A VISCI Not Available Start: 07-04-2023 End: 07-04-2023 ambulatory DO Ok Tyson Work Phone: [facility] Work Phone: Start: 07-04-2023 End: 07-04-2023 Patient encounter procedure DO Ok Tyson Work Phone: Replaced By [facility] Work Phone: Start: 06-18-2023 End: 06-18-2023 ambulatory OK TYSNO Not Available Start: 06-07-2023 Non-patient / Non-visit DO Guillermo kaia Marbella Work Phone: Replaced By [facility] Work Phone: Start: 06-02-2023 End: 06-02-2023 ambulatory TERENCE A VISCI Not Available Start: 05-31-2023 End: 05-31-2023 Patient encounter procedure DO Ok Tyson Work Phone: [facility]-Electrodiagnostics Work Phone: Start: 05-31-2023 End: 05-31-2023 ambulatory DO Ok Tyson Work Phone: [facility] Work Phone: Start: 05-23-2023 End: 05-23-2023 ambulatory TERENCE A VISCI Not Available Start: 05-14-2023 End: 05-14-2023 ambulatory RAHEL MOLINA Not Available Start: 09-23-2022 End: 09-23-2022 ambulatory DO Ok Giacomok Work Phone: [facility] Work Phone: Start: 09-23-2022 End: 09-23-2022 Patient encounter procedure DO Ok Tyson Work Phone: [facility]- Visit Work Phone: Start: 09-18-2022 End: 09-20-2022 Evaluation and management of inpatient DO Ok Tyson Work Phone: [facility]-3 [place] Work Phone: Start: 09-03-2022 End: 09-03-2022 Departed Referred DO Ok Tyson Work Phone: [facility]-Lab [place] Work Phone: Start: 08-10-2022 End: 08-10-2022 ambulatory DO Ok Tyson Work Phone: [facility] Work Phone: Start: 08-10-2022 End: 08-10-2022 Patient encounter procedure DO Ok Tyson Work Phone: [facility]-3 East Labor - O/P Start: 11-25-2021 End: 11-26-2021 Emergency department patient visit Rayray Aquino Facility:[facility] Start: 11-25-2021 End: 11-25-2021 Emergency department patient visit Rayray Aquino [facility] Start: 10-09-2021 End: 10-09-2021 Patient encounter procedure DO Ok Tyson Work Phone: [facility]-Lab [facility] Start: 09-23-2021 End: 09-23-2021 ambulatory Pankaj Berger Other [employer] Other Start: 09-23-2021 Telephone encounter Pankaj STONE [facility] Start: 09-18-2021 End: 09-18-2021 ambulatory Pankaj Berger Other [employer] Other Start: 09-18-2021 Telephone encounter Pankaj STONE [facility] Start: 09-13-2021 End: 09-13-2021 Patient encounter procedure DO Ok Tyson Work Phone: [facility]-Lab [facility] Start: 09-03-2021 Rx Renewal Terence Eugene er Work Phone: NI-Gjtzomgwed-Wlhcrm 220 Work Phone: Start: 08-20-2021 End: 08-20-2021 Patient encounter procedure DO Ok Tyson Work Phone: [facility]-Electrodiagnostics Start: 07-03-2021 End: 07-03-2021 ambulatory Pankaj Berger Other [employer] Other Start: 07-03-2021 Telephone encounter Pankaj STONE [facility] Start: 06-11-2021 End: 06-11-2021 ambulatory Pankaj Berger Other [employer] Other Start: 06-11-2021 Telephone encounter Pankaj STONE [facility] Start: 06-02-2021 Rx Renewal Terence Eugene er Work Phone: DL-Psqpirpuqe-Kevliacot-Ad min RBC 585 Work Phone: Start: 05-30-2021 ambulatory Terence Pyle Facility: Start: 05-30-2021 Office outpatient vi sit 15 minutes Terence Pyle Work Phone: NZ-Etwosflern-Knuobmsfx-Ad min RBC 585 Work Phone: Start: 05-30-2021 Patient encounter procedure Terence Pyle Work Phone: VA-Htvwultaf-Dwnskzis H DO Work Phone: Start: 05-17-2021 End: 05-17-2021 Emergency department patient visit Bipin Skelton [facility] Start: 05-11-2021 Telephone encounter Terence Pyle Work Phone: PH-Oahdbldirf-Tvboqzrmwdq 220 Work Phone: Start: 04-27-2021 End: 04-27-2021 ambulatory Pankaj Berger Other [employer] Other Start: 04-27-2021 Telephone encounter Pankaj Serrano [facility] Start: 04-09-2021 AUDIT Terence hoffmann Work Phone: DF-Fchjphikwf-Nkkmcsgepii 220 Work Phone: Start: 04-06-2021 End: 04-06-2021 ambulatory Albert Christopher Other [employer] Other Start: 04-06-2021 Telephone encounter Albert [place] [facility] Start: 04-05-2021 End: 04-05-2021 ambulatory Pankaj Berger Other [employer] Other Start: 04-05-2021 Telephone encounter Pankaj Serrano [facility] Start: 04-04-2021 End: 04-04-2021 ambulatory Albert Christopher Other [employer] Other Start: 04-04-2021 Office outpatient vi sit 15 minutes Albert [place] [facility] Start: 04-03-2021 End: 04-03-2021 ambulatory Pankaj Berger Other [employer] Other Start: 04-03-2021 Telephone encounter Pankaj Serrano [facility] Start: 03-30-2021 End: 03-30-2021 ambulatory Pankaj Berger Other [employer] Other Start: 03-30-2021 Telephone encounter Pankaj STONE [facility] Start: 03-26-2021 Rx Renewal Terence Eugene er Work Phone: KM-Uqffeeqmsf-Mbemezkf 1600 Work Phone: Start: 03-22-2021 ambulatory Terence Pyle Facility:[id number] Start: 03-22-2021 Office outpatient vi sit 15 minutes Terence Pyle Work Phone: SO-Hgxksmnawj-Tpeymumof-Ad min RBC 585 Work Phone: Start: 03-22-2021 Patient encounter procedure Terence Pyle Work Phone: EV-Xxowjsnooe-Sirmpx 220 Work Phone: Start: 2021 End: 2021 ambulatory Pankaj Berger Other [employer] Other Start: 2021 Patient encounter procedure Pankaj Berger [facility] Start: 03-07-2021 End: 03-07-2021 ambulatory Pankaj Berger Other [employer] Other Start: 03-07-2021 Telephone encounter Pankaj STONE [facility] Start: 02-15-2021 End: 02-15-2021 ambulatory Pankaj Berger Other [employer] Other Start: 02-15-2021 Telephone encounter Pankaj STONE [facility] Start: 02-12-2021 End: 02-12-2021 ambulatory Brenda Ginty Other [employer] Other Start: 02-12-2021 Office outpatient vi sit 5 minutes Brenda Ginty [facility] Start: 12-20-2020 End: 12-20-2020 ambulatory Pankaj Ditty Other [employer] Other Start: 12-20-2020 Telephone encounter Pankaj STONE [facility] Start: 12-14-2020 (Administrative Assistant Coordinator) Administrative Assistant Coordinator Laura Byrnes [facility] Start: 12-14-2020 End: 12-14-2020 ambulatory Laura Day Other [employer] Other Start: 12-13-2020 End: 12-13-2020 ambulatory Chacho Domingo Other [employer] Other Start: 12-13-2020 Office outpatient vi sit 15 minutes Chacho Domingo [facility] Start: 12-11-2020 End: 12-11-2020 ambulatory Pankaj Berger Other [employer] Other Start: 12-11-2020 Telephone encounter Pankaj Berger [facility] Start: 11-28-2020 AUDIT Terence Eugene er Work Phone: GD-Htskxozbud-Iytvxihzx-Ad min RBC 585 Work Phone: Start: 11-27-2020 Telephone encounter Pankaj STONE [facility] Start: 11-21-2020 Telephone encounter Pankaj STONE [facility] Start: 11-19-2020 Office outpatient vi sit 15 minutes Albert White [facility] Start: 11-08-2020 Telephone encounter Pankaj Janeerolan STONE [facility] Start: 11-06-2020 Patient encounter procedure Pankaj Berger [facility] Start: 09-27-2020 AUDIT Terence Eugene er Work Phone: QC-Jhrmhayiwo-Xkfjlejkw Work Phone: Start: 08-30-2020 Office outpatient vi sit 15 minutes Terence Pyle Work Phone: PP-Bzvlaolemi-Litrgyhyu Work Phone: Start: 08-22-2020 AUDIT Terence Eugene er Work Phone: UA-Ijmtuawevb-Wpulxdmli-Ad min RBC 585 Work Phone: Start: 07-19-2020 Rx Renewal Terence Eugene er Work Phone: KD-Ucrnmqcflh-Ldeqyqtzd-Ad min RBC 585 Work Phone: Start: 03-29-2020 Patient encounter procedure Chica Whitmore WIRE TEMPERER-LORRY WEIGHER, WIRE TEMPERER-PULP BLEACHER OL-Gwwgkpkgzr-Nxennqlm 1600 Work Phone: Start: 12-29-2019 Patient encounter procedure Chica Whitmore WIRE TEMPERER-LORRY WEIGHER, WIRE TEMPERER-PULP BLEACHER LI-Lzlioubrdm-Ouisahyx 1600 Work Phone: Start: 12-24-2019 End: 12-24-2019 Patient encounter procedure Bree (Jury Consultant) Aleshia Work Phone: [facility] Start: 12-24-2019 Results Only Bree (Jury Consultant) Aleshia Work Phone: Colorectal Surgery Start: 12-10-2019 End: 12-10-2019 Orders Only Bree (Jury Consultant) Aleshia Work Phone: Gastroenterology Comment on above: Constipation, unspec ified constipation type (Primary Dx) Start: 11-05-2019 Patient encounter procedure Chica Whitmore VX-Bamrwyrhil-Wzahsypok-Ad min RBC 585 Work Phone: Start: 08-25-2019 Patient encounter procedure Chica Whitmore QM-Tfqkppmmgj-Kdcreohr-Adm in RBC 585 Work Phone: Start: 04-28-2019 Patient encounter procedure Chica Whitmore OO-Rkiuiutwdk-Uzyuxpae-Adm in RBC 585 Work Phone: Start: 12-30-2018 Patient encounter procedure Chica Whitmore WY-Xgyfijirek-Uvjrohkbk Work Phone: Start: 09-30-2018 Patient encounter procedure Chica Whitmore EB-Otrfpablyt-Jeswpqpxy Work Phone: Start: 04-29-2018 Patient encounter procedure Chica Whitmore GJ-Pztcsamrvm-Fjsvbjhal Work Phone: Start: 01-28-2018 Patient encounter procedure Chica Whitmore [facility] Work Phone: Start: 11-07-2017 Patient encounter procedure Chica HOPERP-Mjgqvoqfcn-Ebpkkbosc Work Phone: Start: 08-01-2017 Patient encounter procedure Chica Whitmore [facility] Work Phone: Start: 05-02-2017 Patient encounter procedure Chica HOPEWG-Xdhbrgqanm-Lthzjwkfr Work Phone: Procedures Date Procedure Procedure Detail Performing Clinician Start: 04-29-2024 ALL CBC WITH AUTO DIFF Navid Alondra DO Work Phone: Start: 04-22-2024 US OB BPP W NON-STRESS [...] Start: 02-09-2024 STATUS COVID-19/FLU Rahel L Jesse ALUMINUM SIDING INSTALLER Work Phone: Start: 01-22-2024 Urnls dip stick/tablet rgnt non-auto w/o micrscp Linda MITCHELL Work Phone: Start: 01-03-2024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
== END 2024-05-03 18:39 | disposition home or self-care (01) ==
LOC: FBCO 18:03 → FBC 18:06
PROVIDERS: PCP Internal Medicine; Visit Provider Obstetrics & Gynecology
DX: O99.283 Endocrine, nutritional and metabolic diseases complicating pregnancy, third trimester (principal)
CPT/HCPCS: 59025

== ENCOUNTER 2024-05-06 11:56 | Outpatient (OUT) | payer MEDICAID, SELFPAY ==
--- NOTE | 2024-05-06 | US_ITS ---
The [address] [address] Patient Name: SHIV ZUÑIGA MRN: [id number] date: 2000 Sex: F Assigned Patient Location: US Current Patient Location: Accession/Order Number: [id number] Exam Date: 05/06/2024 14:34 Report Date: 05/06/2024 14:35 At the request of: MEJIA BROWN DO Procedure: US OB BPP w non-stress Biophysical profile. Reason for exam: Insulin controlled gestational diabetes. COMPARISON: Biophysical profile 04/29/2024 TECHNIQUE: Transabdominal imaging of the gravid uterus was obtained. FINDINGS: The svp chief marketing officer reports a BPP of 8 out of 8. heart rate 151bpm. RENAE 21.2 cm. US/US OB BPP w non-stress IMPRESSION: BPP 8 out of 8. Impression dictated by: Edis Burroughs Jr., D.O.05/06/2024 2:35 PM Dictation Location: [facility]Red[facility] Electronically authenticated by: [id number] Y Date: 05/06/2024 14:35
[2024-05-06 12:17] VITALS: BP 117/66; PULSE 95
== END 2024-05-06 12:45 | disposition home or self-care (01) ==
LOC: US 11:56 → FBC 12:02
PROVIDERS: PCP Internal Medicine; Visit Provider Obstetrics & Gynecology
DX: O24.414 Gestational diabetes mellitus in pregnancy, insulin controlled (principal); Z3A.36 36 weeks gestation of pregnancy
CPT/HCPCS: 76818; 87081

== ENCOUNTER 2024-05-06 14:56 | Outpatient (REF) | payer MEDICAID, SELFPAY | END 2024-05-06 14:57 | disposition home or self-care (01) | LOC: LAB 14:56 | PROVIDERS: PCP Internal Medicine; Visit Provider Obstetrics & Gynecology | DX: Z34.93 Encounter for supervision of normal pregnancy, unspecified, third trimester (principal); Z3A.36 36 weeks gestation of pregnancy | CPT/HCPCS: 36415; 87081 ==

== ENCOUNTER 2024-05-09 10:19 | Observation (INO) | payer BC, MEDICAID, SELFPAY ==
[2024-05-09] VITALS (11 sets, daily range): BP systolic 107–128; BP diastolic 57–74; PULSE 81–105; TEMP 36.3
--- OUTSIDE RECORDS SUMMARY | 2024-05-09 10:26 | XMS_ITS | CCD ---
Author Organization [facility] CliniSypr Care Team Providers Care Show Worker Name Role Phone Chica Whitmore Unavailable Unavailable Terence Pyle Unavailable Unavailable Nataprawira, Avani Unavailable Unavailable Chica Whitmore Unavailable Unavailable Victor M Bustillo Unavailable Unavailable Terence Pyle Primary Care Provider [phone] Pankaj Berger Unavailable Haim MEDICAL SECRETARY RECEPTIONIST-PLUG PASTER, MEDICAL SECRETARY RECEPTIONIST-EMR TRAINERChica Unavailable Unavailable Terence Pyle Unavailable Unavailable Nataprawira, Avani Unavailable Unavailable Chica Whitmore Unavailable Unavailable Victor M Bustillo Unavailable Unavailable Terence Pyle Unavailable Unavailable Unavailable Chica Whitmore Unavailable Unavailable OK TYSON Primary Care Physician Pankaj Berger Unavailable Albert White Unavailable Chacho Domingo Unavailable Laura Day Unavailable Brenda Armstrong Unavailable DO Ok Tyson Primary Care Provider [phone] DO Ok Tyson Attending Provider Terence Pyle Primary Care Unavailabl e Self, Referral Referring Unavailable Ms. Chica Whitmore Attending UnavailTerence Munoz Primary Care Unavailemre e Ms. Chica Whitmore Attending UnavailDO Ok Rizzo Primary Care Provider DO Terence Garcia Attending Provider DO Chica Newman Attending Provider MD Yuval Pete Admit Provider MD Yuval Pete Attending Provider [phone] MD Fernando Reyna Attending Provider [phone] Rayray Aquino Attending Unavailable DO Ok Tyson Primary Care Provider [phone] JOSE Molina Attending Provider MD Artur Kang Attending Provider Marbella TOLLIVER, [facility] Primary Care Provider Luis Antonio Blas DO Unavailable Ok Tyson DO Unavailable Luis Antonio Blas DO Unavailable [phone] Marbella TOLLIVER, Ok Primary Care Provider Micheal OSTOMY CARE NURSE-CYaritza Attending Provider Tom Nunez DO Emergency Provider Yuval White MD Attending Provider Tom Nunez DO Emergency Provider Venecia Tyson DO, [place] Primary Care Provider Tom Nunez DO Emergency Provider Yuval White MD Attending Provider Chica Newman DO Attending Provider Ok Tyson Primary Care Unavailable Yuval Pete Admitting Unavailable Yuval Pete Attending Unavailable Chica Newman Admitting Unavailable Chica Newman Attending Unavailable Ok Tyson Primary Care Unavailable Ok Tyson Primary Care Unavailable Yaritza Gonzalez Admitting Unavailable Yaritza Gonzalez Attending Unavailable Ok Tyson Primary Care Unavailable Rahel Molina Admitting Unavailable Rahel Molina Attending Unavailable Ok Tyson Primary Care Unavailable Artur Kang Admitting UnaArtur Tai Attending LINDA Quach Referring Unavailable NAVID CANTU Attending Unavailable LINDA ROBERT Attending Unavailable LINDA ROBERT Attending Unavailable LINDA ROBERT Attending Unavailable NAVID CANTU Attending Unavailable ALONDRANAVID AMES Attending Unavailable RAHEL MOLINA Attending Unavailable VISCI, TERENCE Harry [...] TYSON Attending Unavailable OK TYSON Referring Unavailable YESICA, LINDA Attending Unavailable NORA, RAHEL Mane Attending Unavailable NAVID CANTU Attending Unavailable Allergies [...] 12-13-2020 take 2 puff(s) by [facility] every four hours as needed [...] Glucose Monitoring Suppl (D-Care Glucometer) w/Device kit (13 sources) Start: 03-08-2024 End: 03-08-2025 Blood Glucose [...] 1 kit 03/08/2024 03/08/2025 Active Continuous Glucose [place] Hardware Installer (Dexcom G6 chainstitch zipper setter) device (8 sources) Start: 04-06-2024 Continuous Glucose [place] Hardware Installer (Dexcom G6 chainstitch zipper setter) device Indications: Gestational diabetes mellitus (GDM), antepartum, gestational diabetes method of control unspecified Use as instructed 1 each 04/06/2024 Active Continuous Glucose Sensor (Dexcom G6 Sensor) misc (8 sources) Start: 04-06-2024 End: 05-06-2024 Continuous Glucose Sensor (Dexcom G6 Sensor) misc Indications: Gestational diabetes mellitus (GDM), antepartum, gestational diabetes method of control unspecified 1 each Every 10 (ten) days 3 each 1 04/06/2024 05/06/2024 Active Continuous Glucose Transmitter (Dexcom G6 transmitter) [facility] (8 sources) Start: 04-06-2024 Continuous Glucose Transmitter (Dexcom G6 transmitter) [facility] Indications: Gestational diabetes mellitus (GDM), antepartum, gestational [...] Quantity: 90 Refills: 1 Ordered: 13-Apr-2020 Haim HADDADN-PLUG PASTER, MEDICAL SECRETARY RECEPTIONIST-EMR TRAINER, Chica Start : 13-Sep-2019 Active hyoscyamine sulfate [...] ml insulin glargine 100 unt/ml pen injector (6 sources) Insulin Analog Start: 04-16-2024 End: 05-16-2024 [...] 12:00am isopropyl alcohol 0.7 ml/ml medicated pad (13 sources) Start: 03-08-2024 Alcohol Swabs (Alcohol Prep [...] day(s), # 15 cap(s), Refills(s) 0, Pharmacy: [place] [id number] [facility], 157.5, cm, 05/17/21 20:52:00 EDT, [...] 2017 12:00am March 27, 2018 10:30pm Vit No.104-Jujp-Hvqed ( Vitamin) 27 mg iron- 800 mcg tablet (1 source) Start: 04-29-2024 take 1 tablet by mouth once daily Vit No.968-Nyoi-Oldrk ( Vitamin) 27 mg iron- 800 mcg [...] Once monthly Quantity: 1 Refills: 3 Haim MEDICAL SECRETARY RECEPTIONIST-PLUG PASTER, MEDICAL SECRETARY RECEPTIONIST-EMR TRAINER, Chica Start : 05-Nov-2019 Active 1.5 ML [...] Quantity: 2 Refills: 0 Ordered: 05-Nov-2019 Haim GARCIA-MT, JOSE-Chica CURTIS Start : 05-Nov-2019 Active cephalexin [...] once daily Quantity: 30 Refills: 3 Haim GARCIA-MT, Chica GROVES Start : 25-Aug-2019 Active Start: 08-25-2019 Citalopram Hyd robromide 10 MG Oral Tablet TAKE 1 AND 1/2 TABLETS DAILY. Quantity: 45 Refills: 5 Haim STALLWORTH, Chica GROVES Start : 25-Aug-2019 Active clonazePAM 0.5 mg [...] A DAY Quantity: 60 Refills: 4 Haim HADDADN-PLUG PASTER, JOSE-EMR TRAINER, Chica Start : 05-Feb-2019 Active Start: 10-11-2018 End: 10-16-2020 Duloxetine 40 mg capsule,del ayed release(DR/EC) Discontinued 60 MG PO Daily October 11, 2018 12:00am October 16, 2020 12:31am Start: 10-11-2018 End: 10-16-2020 take 60 mg by mouth once daily Duloxetine Discontinued 60 MG PO Daily October 11, 2018 12:00am October 16, 2020 12:31am Start: 09-30-2018 take 1 capsule by [facility] once daily DULoxetine HCl - 40 MG Oral Capsule Delayed Release Particles TAKE 1 CAPSULE BY MOUTH EVERY DAY Quantity: 30 Refills: 2 Haim MEDICAL SECRETARY RECEPTIONIST-PLUG PASTER, MEDICAL SECRETARY RECEPTIONIST-EMR TRAINER, Chica Start : 30-Sep-2018 Active DULoxetine HCl N ot-Taking DULoxetine HCl A ctive 1 ml erenumab-aooe 70 mg/ml auto-injector (7 sources) Start: 04-09-2021 inject 1 mL by subcutaneous injection every month Aimovig 70 MG/ML Subcutaneous Solution Auto-injector ADMINISTER 1 ML UNDER THE SKIN 1 TIME MONTHLY Quantity: 1 Refills: 3 Ordered: 09-Apr-2021 Haim HADDADN-PLUG PASTER, MEDICAL SECRETARY RECEPTIONIST-EMR TRAINER, Chica Start : 09-Apr-2021 Active escitalopram 10 [...] 11-01-2020 take 1 capsule by [facility] once daily FLUoxetine HCl - 10 MG Oral Capsule TAKE ONE CAPSULE BY MOUTH ONE TIME DAILY Quantity: 30 Refills: 0 Ordered: 01-Nov-2020 DO Start : 01-Nov-2020 Active Start: 03-29-2020 take 1 tablet by ashtyn once daily FLUoxetine HCl - 20 MG Oral Tablet TAKE 1 & 1/2 TABLETS BY MOUTH DAILY Quantity: 135 Refills: 1 Ordered: 30-Aug-2020 Haim HADDADN-PLUG PASTER, MEDICAL SECRETARY RECEPTIONIST-Chica CURTIS Start : 29-Mar-2020 Active Start: 03-29-2020 [...] Complete Start: 12-07-2019 take 1 capsule by [facility] twice daily at mealtime Amitiza 8 [...] Quantity: 270 Refills: 0 Ordered: 03-Sep-2021 Haim MEDICAL SECRETARY RECEPTIONIST-PLUG PASTER, MEDICAL SECRETARY RECEPTIONIST-EMR TRAINER, Chica Start : 11-May-2021 Active Josie 0.25-35 [...] October 09, 2020 3:25pm polyethylene glycol 3350 39528 mg powder for oral solution (20 sources) Osmotic Laxative Start: 11-13-2019 End: 10-16-2020 Polyethylene Glycol 3350 (Miralax) 17 gram/dose powder Discontinued 17 GM PO Twice daily as needed for constipation November 13, 2019 12:00am October 16, 2020 12:31am MiraLax Active polyethylene glycol 3350 119068 mg / potassium chloride 2970 mg / sodium bicarbonate 6740 mg / sodium chloride 5860 mg / sodium sulfate 12790 mg powder for oral solution (12 sources) [...] October 13, 2018 6:20pm predniSONE Activ e Amfrqvgj-Bkg-Py-Fa (5 sources) Start: 09-18-2022 End: 07-04-2023 take 1 tablet by mouth once Wnhaceml-Gyr-Vs-Fa Discontinued TAB PO September 18, 2022 12:00am July 04, 2023 10:12am Start: 09-18-2022 take 1 tablet by mouth once Pr enatal Jsxwhguj-Qrk-Tm-Fa Active TAB PO September 18, 2022 12:00am Tyvzaimq-Fhl-Rf-Fa 1 mg Tablet (4 sources) Start: 09-18-2022 End: 07-04-2023 take 1 tablet by mouth once Oeocmqpe-Kmr-Gz-Fa 1 mg Tablet Discontinued TAB PO September 18, 2022 12:00am July 04, 2023 10:12am Start: 09-18-2022 End: 07-04-2023 take 1 tablet by mouth once Acbhbwdz-Xhr-Rb-F a 1 mg Tablet Discontinued TAB PO [...] 24 HOURS. Quantity: 9 Refills: 3 Haim MEDICAL SECRETARY RECEPTIONIST-PLUG PASTER, MEDICAL SECRETARY RECEPTIONIST-EMR TRAINER, Chica Start : 30-Dec-2018 Active sacrosidase 8500 [...] Quantity: 90 Refills: 2 Ordered: 22-Mar-2021 Haim MEDICAL SECRETARY RECEPTIONIST-PLUG PASTER, MEDICAL SECRETARY RECEPTIONIST-EMR TRAINERChica Start : 22-Mar-2021 End : 30-May-2021 Complete [...] p per request of Phys. EHR Cmte Blindness and vision defects (1 source) Other visual disturbances; Translations: [Other visual disturbances] Onset: 04-29-2024 Episodic Cardiac dysrhythmias (20 sources) Postural orthostatic tachycardia [...] Facility US OB BPP W NON-STRESS on 05-06-2024 [place] [address] Ultrasound Report Signed Patient: SHIV EVANGELISTA MR#: [id number] : 2000 Acct:[id number] Age/Sex: 24 / F ADM Date: 05/06/24 Loc: US Attending Dr: Navid Cantu D.O. Ordering Physician: Navid Cantu D.O. Date of Service: 05/06/24 Procedure(s): US OB BPP w non-stress Accession Number(s): [id number] cc: Navid Cantu D.O.; [place] TYSON [place] [id number] Patient Name: SHIV EVANGELISTA MRN: [facility]:[id number] date: 2000 Sex: F Assigned Patient Location: US Current Patient Location: US Accession/Order Number: [id number] Exam Date: 05/06/2024 14:34 Report Date: 05/06/2024 14:35 At the request of: NAVID CANTU DO Procedure: US OB BPP w non-stress Biophysical profile. Reason for exam: Insulin controlled gestational diabetes. COMPARISON: Biophysical profile 04/29/2024 TECHNIQUE: Transabdominal imaging of the gravid uterus was obtained. FINDINGS: The induction machine setter reports a BPP of 8 out of 8. heart rate 151bpm. RENAE 21.2 cm. US/US OB BPP w non-stress IMPRESSION: BPP 8 out of 8. Impression dictated by: Edis Burroughs Jr., D.O.05/06/2024 2:35 PM Dictation Location: [place] [address] Electronically authenticated by: [id number] Y Date: 05/06/2024 14:35 Dictated By: Edis Burroughs M.D. Signed By: 05/06/241436 DD/ 34 TD/TT: Machine Dyer: [facility] Radiology, Radiologist, MD - 05/06/2024 [place] [address] Ultrasound Report Signed Patient: SHIV EVANGELISTA MR#: [id number] : 2000 Acct:[id number] Age/Sex: 24 / F ADM Date: 05/06/24 Loc: US Attending Dr: Navid Cantu D.O. Ordering Physician: Navid Cantu D.O. Date of Service: 05/06/24 Procedure(s): US OB BPP w non-stress Accession Number(s): [id number] cc: Navid Cantu D.O.; [place] T[place] [id number] Patient Name: SHIV EVANGELISTA MRN: [facility]:[id number] date: 2000 Sex: F Assigned Patient Location: US Current Patient Location: US Accession/Order Number: [id number] Exam Date: 05/06/2024 14:34 Report Date: 05/06/2024 14:35 At the request of: NAVID CANTU DO Procedure: US OB BPP w non-stress Biophysical profile. Reason for exam: Insulin controlled gestational diabetes. COMPARISON: Biophysical profile 04/29/2024 TECHNIQUE: Transabdominal imaging of the gravid uterus was obtained. FINDINGS: The induction machine setter reports a BPP of 8 out of 8. heart rate 151bpm. RENAE 21.2 cm. US/US OB BPP w non-stress IMPRESSION: BPP 8 out of 8. Impression dictated by: Edis Burroughs Jr., D.O.05/06/2024 2:35 PM Dictation Location: [facility] Electronically authenticated by: [id number] Y Date: 05/06/2024 14:35 Dictated By: Edis Burroughs M.D. Signed By: 05/06/24 1437 DD/ 34 TD/TT: Machine Dyer: [facility] Radiology Study observation (narrative) [facility] US OB BPP W NON-STRESS Ordered By: Radiologist Radiology on 05-06-2024 [facility] Work Phone: US OB FOLLOW UP TRANSABDOMIN AL APPROACHon 05-06-2024 US OB FOLLOW UP TRANSABDOMINAL APPROACH EXAM: US OB FOLLOW UP TRANSABDOMINAL APPROACH HISTORY: Gestational diabetes. COMPARISON: OB ultrasound 04/08/2024. TECHNIQUE: Two-dimensional transabdominal grayscale ultrasound imaging of the pelvis was performed. FINDINGS: Gestation: Single Presentation: Cephalic Cardiac Activity: 142 beats per minute Placental Location: Anterior with no sonographic abnormalities identified. Cervical canal: Not visualized Amniotic Fluid Index: 12.2 cm MEASUREMENTS: BPD: 8.9 cm EGA: 36 weeks 1 days HC: 32.2 cm EGA: 36 weeks 3 days AC: 33.2 cm EGA: 37 weeks 1 days FL: 6.6 cm EGA: 33 weeks 5 days HC/AC Ratio: 0.97 The gestational age by today's ultrasound is 35 weeks 6 days (+/- 18 days gestation). Estimated Weight: 2855 grams, +/- 428 grams ( 6 lb 5 oz). Weight Percentile for gestational age: 38 % IMPRESSION: 1. Single, live intrauterine gestation 36 weeks, 5 days by LMP. Today's ultrasound measurements correlate with a gestational age of 35 weeks 6 days. Estimated weight is 2855 grams, +/- 428 grams ( 6 lb 5 oz) which correlates to 38 %. VELMA is 06/04/2024. Electronically Signed:Celio y signed by VICTOR M RAY II, MD, PHD at 06-May-2024 11:17:07 PM [facility] Normal Not Available Comment on above: Order Comment: US OB SCAN FOR GROWTH Estimated Date of Delivery: 05/29/24 Gestational Age as of 04/22/2024: 34w5d ALL CBC WITH AUTO DIFFon BASOPHILS ABSOLUTE AUTO 0.1 N [facility] Basophils/100 WBC (Bld) 0.8 % 0.2 - 2.0 % [facility] Eosinophils/100 WBC (Bld) 2.1 % 0.9 - 7.0 % [facility] Erythrocyte distribution width (RBC) [Ratio] 12.5 % 11.0 - 15.0 % [facility] Hematocrit (Bld) [Volume fraction] 31.4 % Low 36.0 - 48.0 % [facility] Hemoglobin (Bld) [Mass/Vol] 10.7 g/dL Low 12.0 - 16.0 g/dL [facility] IMMATURE GRANULOCYTES ABS AUTO 0.37 High [facility] Immature granulocytes/100 WBC (Bld) 3.7 % High 0.0 - 0.5 % [facility] Interpretation and review of laboratory results Abnormal [facility] LYMPHOCYTES ABSOLUTE AUTO 2.2 [facility] Lymphocytes/100 WBC (Bld) 21.7 % 20.5 - 60.0 % [facility] MCH (RBC) [Entitic mass] 30.8 pg 26.7 - 34.0 pg [facility] MCHC (RBC) [Mass/Vol] 34.1 g/dL 29.9 - 35.2 g/dL [facility] MCV (RBC) [Entitic vol] 90.5 fL 81.0 - 99.0 fL [facility] MONOCYTES ABSOLUTE AUTO 1.2 High N [facility] Monocytes/100 WBC (Bld) 11.5 % 1.7 - 12.0 % [facility] NEUTROPHILS ABSOLUTE AUTO 6.1 [facility] Neutrophils/100 WBC (Bld) 60.2 % 43.0 - 75.0 % [facility] Platelet mean volume (Bld) [Entitic vol] 9.7 fL 9.5 - 13.5 fL [facility] TBH EO # 0.2 [facility] TBH PLT 199 [facility] TB RBC 3.47 Low [facility] TB WBC 10.1 [facility] Appearance of UrineOrdered B y: Chica Newman on 04-29-2024 Appearance (U) Urine appearance Abnormal Clear [facility] Bacteria [Presence] in Urine by AutomatedOrdered By: Chica Newman on 04-29-2024 Bacteria Auto Ql (U) Bacteria [Presence] in Urine by Automated High None Seen [facility] Bilirubin Test strip Ql (U)O rdered By: Chica Newman on 04-29-2024 Bilirubin Ql (U) Bilirubin.total [Presence] in Urine by Test strip Negative [facility] Color Auto (U)Ordered By: Sanjeev zackerylara Newman on 04-29-2024 Color (U) Color of Urine by Auto Yellow [facility] Dipstick and Microscopicon 0 04-29-2024 Appearance (U) Cloudy Critically abnormal Clear [facility] Comment on above: Order Comment: Comme nt c/o urinary symptoms or increased blood pressure Name Collection Type:: Voided Performed By: #### A DDONUAPLUS, CUU #### [place] [address] [place] Bacteria,Urine 4+ High None Seen [facility] Comment on above: Order Comment: Comme nt c/o urinary symptoms or increased blood pressure Name Collection Type:: Voided Performed By: #### A DDONUAPLUS, CUU #### [place] [address] [place] Bilirubin,Urine Negative Normal Negative [facility] Comment on above: Order Comment: Comme nt c/o urinary symptoms or increased blood pressure Name Collection Type:: Voided Performed By: #### A DDONUAPLUS, CUU #### [place] [address] [place] Color (U) Colorless Normal Yellow [facility] Comment on above: Order Comment: Comme nt c/o urinary symptoms or increased blood pressure Name Collection Type:: Voided Performed By: #### A DDONUAPLUS, CUU #### [facility] [address] [place] [address] [place] Glucose Ql (U) Normal Normal Normal [facility] Comment on above: Order Comment: Comme nt c/o urinary symptoms or increased blood pressure Name Collection Type:: Voided Performed By: #### A DDONUAPLUS, CUU #### [facility] [address] [place] [address] [place] Hyaline Casts,Urine 0-8 Normal 0-8 [facility] Comment on above: Order Comment: Comme nt c/o urinary symptoms or increased blood pressure Name Collection Type:: Voided Result Comment: PERF ORMED BY: [place] [address] PATHOLOGIST CHILD LIFE THERAPIST SHAHANA BRITTON M.D. Performed By: #### A DDONUAPLUS, CUU #### [address] Ketones Ql (U) Negative Normal Negative [facility] Comment on above: Order Comment: Comme nt c/o urinary symptoms or increased blood pressure Name Collection Type:: Voided Performed By: #### A DDONUAPLUS, CUU #### [address] Leukocyte esterase Test strip Ql (U) 4+ High Negative [facility] Comment on above: Order Comment: Comme nt c/o urinary symptoms or increased blood pressure Name Collection Type:: Voided Performed By: #### A DDONUAPLUS, CUU #### [place] [address] [place] Nitrite,Urine Negative Normal Negative [facility] Comment on above: Order Comment: Comme nt c/o urinary symptoms or increased blood pressure Name Collection Type:: Voided Performed By: #### A DDONUAPLUS, CUU #### [place] [address] [place] Occult Blood,Urine Negative Normal Negative [facility] Comment on above: Order Comment: Comme nt c/o urinary symptoms or increased blood pressure Name Collection Type:: Voided Result Comment: PERF ORMED BY: [place] [address] PATHOLOGIST CHILD LIFE THERAPIST SHAHANA BRITTON M.D. Performed By: #### A DDONUAPLUS, CUU #### [place] [address] [place] pH (U) 7.0 [pH] Normal 5.0-9.0 [facility] Comment on above: Order Comment: Comme nt c/o urinary symptoms or increased blood pressure Name Collection Type:: Voided Performed By: #### A DDONUAPLUS, CUU #### [address] Protein,Urine Negative Normal Negative [facility] Comment on above: Order Comment: Comme nt c/o urinary symptoms or increased blood pressure Name Collection Type:: Voided Performed By: #### A DDONUAPLUS, CUU #### [place] [address] [place] RBC,Urine 1-2 Normal 0-4 [facility] Comment on above: Order Comment: Comme nt c/o urinary symptoms or increased blood pressure Name Collection Type:: Voided Performed By: #### A DDONUAPLUS, CUU #### [address] Specificy [place],Urine 1.006 Normal 1.001-1.030 [facility] Comment on above: Order Comment: Comme nt c/o urinary symptoms or increased blood pressure Name Collection Type:: Voided Performed By: #### A DDONUAPLUS, CUU #### [address] Squamous Epithelial Cell,Urine 10-19 High 0-2 [facility] Comment on above: Order Comment: Comme nt c/o urinary symptoms or increased blood pressure Name Collection Type:: Voided Performed By: #### A DDONUAPLUS, CUU #### [address] Urobilinogen,Urine Normal Normal Normal [facility] Comment on above: Order Comment: Comme nt c/o urinary symptoms or increased blood pressure Name Collection Type:: Voided Performed By: #### A DDONUAPLUS, CUU #### [place] [address] [place] WBC,Urine 5-9 High 0-4 [facility] Comment on above: Order Comment: Comme nt c/o urinary symptoms or increased blood pressure Name Collection Type:: Voided Performed By: #### A DDONUAPLUS, CUU #### [facility] [address] Epithelial cells.squamous [# /area] in Urine sediment by Automated countOrdered By: Chica Newman on 04-29-2024 Epithelial cells.squamous Auto (Urine sed) [#/Area] Epithelial cells.squamous [#/area] in Urine sediment by Automated count High 0-2 [facility] Erythrocytes [#/area] in Uri ne sediment by Automated countOrdered By: Chica Newman on 04-29-2024 RBC Auto (Urine sed) [#/Area] Erythrocytes [#/area] in Urine sediment by Automated count 0-4 [facility] Glucose [Mass/volume] in Uri ne by Test stripOrdered By: Chica Newman on 04-29-2024 Glucose Test strip (U) [Mass/Vol] Glucose [Mass/volume] in Urine by Test strip Normal [facility] Hemoglobin Test strip Ql (U) Ordered By: Chica Newman on 04-29-2024 Hemoglobin Ql (U) Hemoglobin [Presence] in Urine by Test strip Negative [facility] Hyaline casts [#/area] in Ur ine sediment by Automated countOrdered By: Chica Newman on 04-29-2024 Hyaline casts Auto (Urine sed) [#/Area] Hyaline casts [#/area] in Urine sediment by Automated count 0-8 [facility] Ketones Test strip Ql (U)Ord ered By: Chica Newman on 04-29-2024 Ketones Ql (U) Ketones [Presence] in Urine by Test strip Negative [facility] Leukocyte esterase [Presence ] in Urine by Test stripOrdered By: Chica Newman on 04-29-2024 Leukocyte esterase Test strip Ql (U) Leukocyte esterase [Presence] in Urine by Test strip High Negative [facility] Leukocytes [#/area] in Urine sediment by Automated countOrdered By: Chica Newman on 04-29-2024 WBC Auto (Urine sed) [#/Area] Leukocytes [#/area] in Urine sediment by Automated count High 0-4 [facility] Nitrite Test strip Ql (U)Ord ered By: Chica Newman on 04-29-2024 Nitrite Ql (U) Nitrite [Presence] in Urine by Test strip Negative [facility] Protein Test strip (U) [Mass /Vol]Ordered By: Chica Paty on 04-29-2024 Protein (U) [Mass/Vol] Protein [Mass/volume] in Urine by Test strip Negative [facility] Specific gravity Test strip (U) [Rel density]Ordered By: Chica Lynneravindra on 04-29-2024 Specific gravity (U) [Rel density] Specific gravity of Urine by Test strip 1.001-1.030 [facility] Urine Cultureon 04-29-2024 Bacteria identified Cx Nom (U) <9,000 colonies/ml mixed bacterial skin contaminants 2 Days PERFORMED BY: [place] [address] PATHOLOGIST CHILD LIFE THERAPIST SHAHANA BRITTON M.D. Normal [facility] Comment on above: Performed By: #### A DDONMAHAMED, WILFREDOU #### [address] Urobilinogen Test strip (U) [Mass/Vol]Ordered By: Chicaandra Newman on 04-29-2024 Urobilinogen (U) [Mass/Vol] Urobilinogen [Mass/volume] in Urine by Test strip Normal [facility] pH Test strip (U)Ordered By: Chica Newman on 04-29-2024 pH (U) pH of Urine by Test strip 5.0-9.0 [facility] US OB BPP W NON-STRESS on 04-22-2024 [place] [address] Ultrasound Report Signed Patient: SHIV EVANGELISTA MR#: [id number] : 2000 Acct:[id number] Age/Sex: 24 / F ADM Date: 04/22/24 Loc: US Attending Dr: Navid Cantu D.O. Ordering Physician: Navid Cantu D.O. Date of Service: 04/22/24 Procedure(s): US OB BPP w non-stress Accession Number(s): [id number] cc: Navid Cantu D.O.; [place] [address] [address] Patient Name: SHIV EVANGELISTA MRN: [facility]:[id number] date: 2000 Sex: F Assigned Patient Location: [facility] Current Patient Location: [place] Accession/Order Number: [id number] Exam Date: 04/22/2024 19:02 Report Date: 04/22/2024 [...] Ferdinand Farr M.D.04/22/2024 7:04 PM Dictation Location: [place] [address] Electronically authenticated by: [id number] Y Date: 04/22/2024 19:04 Dictated By: Ferdinand Farr D.O. Signed By: 04/22/241906 DD/ 03 TD/TT: Machine Dyer: [facility] Radiology, Radiologist, MD - 04/22/2024 [place] [address] Ultrasound Report Signed Patient: SHIV EVANGELISTA MR#: [id number] : 2000 Acct:[id number] Age/Sex: 24 / F ADM Date: 04/22/24 Loc: US Attending Dr: Navid Cantu D.O. Ordering Physician: Navid Cantu D.O. Date of Service: 04/22/24 Procedure(s): US OB BPP w non-stress Accession Number(s): [id number] cc: Navid Cantu D.O.; [place] [id number] Patient Name: SHIV EVANGELISTA MRN: [facility]:[id number] date: 2000 Sex: F Assigned Patient Location: [facility] Current Patient Location: [place] Accession/Order Number: [id number] Exam Date: 04/22/2024 19:02 Report Date: 04/22/2024 [...] Ferdinand Farr M.D.04/22/2024 7:04 PM Dictation [facility] Electronically authenticated by: [id number] Y Date: 04/22/2024 19:04 Dictated By: Ferdinand Farr D.O. Signed By: 04/22/241906 DD/ 03 TD/TT: Machine Dyer: [facility] Radiology Study observation (narrative) [facility] US OB BPP W NON-STRESS Ordered By: Radiologist Radiology on 04-22-2024 [facility] Work Phone: Urinalysis macro (dipstick) panel (U)on 04-22-2024 Bilirubin, UA Negative Negative - 4(70) +++ mg/dL [facility] Blood, UA Negative Negative - 50 Soto/mcL [facility] Clarity, UA Clear [facility] Color, UA Yellow [facility] Glucose, UA Negative Negative - 2000(110) ++++ mg/dL [facility] Interpretation and review of laboratory results Abnormal [facility] Ketones, UA Positive Negative - 160(16) ++++ mg/dL [facility] Comment on above: trace Leukocytes, UA Positive Negative - 500+++ Adarsh/mcL [facility] Comment on above: small Nitrite, UA Negative Negative - Positive [facility] pH, UA 6 5 - 9 [facility] Protein, UA Trace Negative - 2000(20) ++++ mg/dL [facility] Spec Grav, UA 1.03 1 - 1.03 [facility] Urobilinogen, UA 0.2 0.2 - 12 mg/dL [facility] US OB FOLLOW UP TRANSABDOMIN AL APPROACHon [...] II, MD, PHD at 10-Apr-2024 07:22:07 AM [facility] Normal Not Available Comment on above: Order Comment: US OB SCAN FOR GROWTH Estimated Date of Delivery: 05/29/24 Gestational Age as of 03/11/2024: 28w5d Urinalysis macro (dipstick) panel (U)on 04-08-2024 Bilirubin, UA Negative Negative - 4(70) +++ mg/dL [facility] Blood, UA Negative Negative - 50 Soto/mcL [facility] Clarity, UA Clear [facility] Color, UA Yellow [facility] Glucose, UA Negative Negative - 1999(110) ++++ mg/dL [facility] Interpretation and review of laboratory results Abnormal [facility] Ketones, UA Positive Negative - 160(16) ++++ mg/dL [facility] Leukocytes, UA Moderate Negative - 500+++ Adarsh/mcL [facility] Nitrite, UA Negative Negative - Positive [facility] pH, UA 6 5 - 9 [facility] Protein, UA Negative Negative - 1999(20) ++++ mg/dL [facility] Spec Grav, UA 1.02 1 - 1.03 [facility] Urobilinogen, UA 0.2 0.2 - 12 mg/dL [facility] US OB FOLLOW UP TRANSABDOMIN AL APPROACHon [...] 1188 gm / 2 lbs, 9 oz (0118-3945 gm) [place] Normal: 1331 gm (7305-3539 gm) [place] Wt%: 21% for 28.7 wks [...] report is generated using voice recognition reporting ([employer]xThera). On occasion [employer] erroneously drops words from the report or replaces the spoken word with similar sounding words. Please call with any questions/concerns regarding this report.* Dictated and transcribed 03/11/24/dpd This report has been electronically signed and approved by the interpreting radiologist. Normal Not Available Comment on above: Order Comment: US OB SCAN FOR GROWTH Estimated Date of Delivery: 4/19/25 Gestational Age as of 02/25/2024: 26w4d Urinalysis macro (dipstick) panel (U)on 03-11-2024 Bilirubin, UA Negative Negative - 4(70) +++ mg/dL [facility] Blood, UA Negative Negative - 50 Soto/mcL [facility] Clarity, UA Clear [facility] Color, UA Yellow [facility] Glucose, UA Negative Negative - 1999(110) ++++ mg/dL [facility] Interpretation and review of laboratory results Abnormal [facility] Ketones, UA Negative Negative - 160(16) ++++ mg/dL [facility] Leukocytes, UA Trace Negative - 500+++ Adarsh/mcL [facility] Nitrite, UA Negative Negative - Positive [facility] pH, UA 7 5 - 9 [facility] Protein, UA Negative Negative - 1999(20) ++++ mg/dL [facility] Spec Grav, UA 1.015 1 - 1.03 [facility] Urobilinogen, UA 0.2 0.2 - 12 mg/dL [facility] Urinalysis macro (dipstick) panel (U)on 02-25-2024 Bilirubin, UA Negative Negative - 4(70) +++ mg/dL [facility] Blood, UA Negative Negative - 50 Soto/mcL [facility] Clarity, UA Clear [facility] Color, UA Yellow [facility] Glucose, UA Negative Negative - 1999(110) ++++ mg/dL [facility] Interpretation and review of laboratory results Normal [facility] Ketones, UA Negative Negative - 160(16) ++++ mg/dL [facility] Leukocytes, UA Negative Negative - 500+++ Adarsh/mcL [facility] Nitrite, UA Negative Negative - Positive [facility] pH, UA 5.5 5 - 9 [facility] Protein, UA Negative Negative - 1999(20) ++++ mg/dL [facility] Spec Grav, UA 1.03 1 - 1.03 [facility] Urobilinogen, UA 0.2 0.2 - 12 mg/dL [facility] ALL CBC WITH AUTO DIFFon BASOPHILS ABSOLUTE AUTO 0 N [facility] Basophils/100 WBC (Bld) 0.6 % 0.2 - 2.0 % [facility] Eosinophils/100 WBC (Bld) 1.4 % 0.9 - 7.0 % [facility] Erythrocyte distribution width (RBC) [Ratio] 12.3 % 11.0 - 15.0 % [facility] Hematocrit (Bld) [Volume fraction] 31.2 % Low 36.0 - 48.0 % [facility] Hemoglobin (Bld) [Mass/Vol] 10.5 g/dL Low 12.0 - 16.0 g/dL [facility] IMMATURE GRANULOCYTES ABS AUTO 0.13 High [facility] Immature granulocytes/100 WBC (Bld) 1.8 % High 0.0 - 0.5 % [facility] Interpretation and review of laboratory results Abnormal [facility] LYMPHOCYTES ABSOLUTE AUTO 1.2 [facility] Lymphocytes/100 WBC (Bld) 17.1 % Low 20.5 - 60.0 % [facility] MCH (RBC) [Entitic mass] 31.5 pg 26.7 - 34.0 pg [facility] MCHC (RBC) [Mass/Vol] 33.7 g/dL 29.9 - 35.2 g/dL [facility] MCV (RBC) [Entitic vol] 93.7 fL 81.0 - 99.0 fL [facility] MONOCYTES ABSOLUTE AUTO 0.5 N [facility] Monocytes/100 WBC (Bld) 6.6 % 1.7 - 12.0 % [facility] NEUTROPHILS ABSOLUTE AUTO 5.3 [facility] Neutrophils/100 WBC (Bld) 72.5 % 43.0 - 75.0 % [facility] Platelet mean volume (Bld) [Entitic vol] 9.8 fL 9.5 - 13.5 fL [facility] TBH EO # 0.1 [facility] TB PLT [facility] RBC 3.33 Low [facility] TB WBC 7.3 [facility] Laboratory - Microbiology an d Antimicrobial susceptibilityon 02-09-2024 SARS-CoV-2 (COVID-19) RNA PAMELA+probe Ql (Unsp spec) Negative [facility] No Panel Informationon 02-08 FLU A Negative [facility] FLU B Negative [facility] Urinalysis macro (dipstick) panel (U)on 01-22-2024 Bilirubin, UA Negative Negative - 4(70) +++ mg/dL [facility] Blood, UA Negative Negative - 50 Soto/mcL [facility] Clarity, UA Clear [facility] Color, UA Yellow [facility] Glucose, UA Negative Negative - 1999(110) ++++ mg/dL [facility] Interpretation and review of laboratory results Abnormal [facility] Ketones, UA Negative Negative - 160(16) ++++ mg/dL [facility] Leukocytes, UA 1+ Negative - 500+++ Adarsh/mcL [facility] Comment on above: small Nitrite, UA Negative Negative - Positive [facility] pH, UA 6 5 - 9 [facility] Protein, UA Negative Negative - 1999(20) ++++ mg/dL [facility] Spec Grav, UA 1.02 1 - 1.03 [facility] Urobilinogen, UA 0.2 0.2 - 12 mg/dL [facility] Alanine aminotransferase [En zymatic activity/volume] in Serum or PlasmaOrdered By: Yaritza Gonzalez on 01-03-2024 ALT [Catalytic activity/Vol] Alanine aminotransferase [Enzymatic activity/volume] in Serum or Plasma 7-52 [facility] Albumin [Mass/volume] in Ser um or Plasma by Bromocresol green (BCG) dye binding methoOrdered By: Yaritza Gonzalez on 01-03-2024 Albumin BCG dye [Mass/Vol] Albumin [Mass/volume] in Serum or Plasma by Bromocresol green (BCG) dye binding metho 3.5-5.7 [facility] Alkaline phosphatase [Enzyma tic activity/volume] in Serum or PlasmaOrdered By: Yaritza Gonzalez on 01-03-2024 ALP [Catalytic activity/Vol] Alkaline phosphatase [Enzymatic activity/volume] in Serum or Plasma 34-104 [facility] Aspartate aminotransferase [ Enzymatic activity/volume] in Serum or PlasmaOrdered By: Yaritza Gonzalez on 01-03-2024 AST [Catalytic activity/Vol] Aspartate aminotransferase [Enzymatic activity/volume] in Serum or Plasma 13-39 [facility] Bilirubin.total [Mass/volume ] in Serum or PlasmaOrdered By: Yaritza Gonzalez on 01-03-2024 Bilirubin [Mass/Vol] Bilirubin.total [Mass/volume] in Serum or Plasma 0.3-1.0 [facility] Calcium [Mass/volume] in Ser um or PlasmaOrdered By: Yaritza Gonzalez on 01-03-2024 Calcium [Mass/Vol] Calcium [Mass/volume] in Serum or Plasma 8.6-10.3 [facility] Carbon dioxide, total [Moles /volume] in Serum or PlasmaOrdered By: Yaritza Gonzalez on 01-03-2024 CO2 [Moles/Vol] Carbon dioxide, total [Moles/volume] in Serum or Plasma 21.0-31.0 [facility] Chloride [Moles/volume] in S camryn or PlasmaOrdered By: Yaritza Gonzalez on 01-03-2024 Chloride [Moles/Vol] Chloride [Moles/volume] in Serum or Plasma 98-107 [facility] Comprehensive Metabolic Pane yaritza 01-03-2024 Albumin [Mass/Vol] 3.8 g/dL Normal 3.5-5.7 [facility] Comment on above: Performed By: #### C MP #### [address] Albumin/Globulin [Mass ratio] 1.7 {ratio} Normal [facility] Comment on above: Performed By: #### C MP #### [address] ALP [Catalytic activity/Vol] 34 U/L Normal 34-104 [facility] Comment on above: Result Comment: PERF ORMED BY: [place] [address] PATHOLOGIST CHILD LIFE THERAPIST SHAHANA BRITTON M.D. Performed By: #### C MP #### [address] ALT [Catalytic activity/Vol] 9 U/L Normal 7-52 [facility] Comment on above: Performed By: #### C MP #### [address] Anion gap [Moles/Vol] 8.8 mmol/L Normal 6.0-15.0 [facility] Comment on above: Performed By: #### C MP #### [address] AST [Catalytic activity/Vol] 18 U/L Normal 13-39 [facility] Comment on above: Performed By: #### C MP #### [address] Bilirubin [Mass/Vol] 0.4 mg/dL Normal 0.3-1.0 [facility] Comment on above: Performed By: #### C MP #### [address] Calcium [Mass/Vol] 8.6 mg/dL Normal 8.6-10.3 [facility] Comment on above: Performed By: #### C MP #### [address] Chloride [Moles/Vol] 106 mmol/L Normal 98-107 [facility] Comment on above: Performed By: #### C MP #### [address] CO2 [Moles/Vol] 25.6 mmol/L Normal 21.0-31.0 [facility] Comment on above: Performed By: #### C MP #### [address] Creatinine [Mass/Vol] 0.48 mg/dL Low 0.60-1.20 [facility] Comment on above: Performed By: #### C MP #### [address] GFR/1.73 sq M.predicted MDRD (S/P/Bld) [Vol rate/Area] mL/min/{1.73_m2} Normal [facility] Comment on above: Performed By: #### C MP #### [place] [address] [place] Globulin (S) [Mass/Vol] 2.2 g/dL Normal T [facility] Comment on above: Performed By: #### C MP #### [address] Glucose [Mass/Vol] 70 mg/dL Normal 70-100 [facility] Comment on above: Result Comment: Yeso Glucose Reference Range is dependent on time and content of last meal. Glucose of more than 200 mg/dL in a nonstressed, ambulatory subject supports the diagnosis of Diabetes Mellitus. ADA recommended reference range Performed By: #### C MP #### [address] Potassium [Moles/Vol] 4.4 mmol/L Normal 3.5-5.1 [facility] Comment on above: Performed By: #### C MP #### [address] Protein [Mass/Vol] 6.0 g/dL Low 6.4-8.9 [facility] Comment on above: Performed By: #### C MP #### [address] Sodium [Moles/Vol] 136 mmol/L Normal 136-145 [facility] Comment on above: Performed By: #### C MP #### [address] Urea nitrogen [Mass/Vol] 9 mg/dL Normal 7-25 [facility] Comment on above: Performed By: #### C MP #### [address] Creatinine [Mass/volume] in Serum or PlasmaOrdered By: Yaritza Gonzalez on 01-03-2024 Creatinine [Mass/Vol] Creatinine [Mass/volume] in Serum or Plasma Low 0.60-1.20 [facility] Erythrocyte distribution wid th Auto (RBC) [Ratio]Ordered By: Yaritza Gonzalez on 01-03-2024 Erythrocyte distribution width (RBC) [Ratio] Erythrocyte distribution width [Ratio] by Automated count 11.9-15.3 [facility] Globulin Calc (S) [Mass/Vol] Ordered By: Yaritza Gonzalez on 01-03-2024 Globulin (S) [Mass/Vol] Serum globulin measurement by calculation (mass/volume) [facility] Glucose [Mass/volume] in Ser um or PlasmaOrdered By: Yaritza Gonzalez on 01-03-2024 Glucose [Mass/Vol] Glucose [Mass/volume] in Serum or Plasma 70-100 [facility] Comment on above: ADA recommended refe rence rangeRandom Glucose Reference Range is dependent on time and content of last meal. Glucose of more than 200 mg/dL in a nonstressed, ambulatory subject supports the diagnosis of Diabetes Mellitus. Hematocrit Auto (Bld) [Volum e fraction]Ordered By: Yaritza Gonzalez on 01-03-2024 Hematocrit (Bld) [Volume fraction] Hematocrit [Volume Fraction] of Blood by Automated count Low 34.0-46.4 [facility] Hemoglobin [Mass/volume] in BloodOrdered By: Yaritza Gonzalez on 01-03-2024 Hemoglobin (Bld) [Mass/Vol] Hemoglobin [Mass/volume] in Blood Low 11.8-15.4 [facility] Hemogram CBC Without Diffon 01-03-2024 Erythrocyte distribution width (RBC) [Ratio] 13.3 % Normal 11.9-15.3 [facility] Comment on above: Performed By: #### C BCNO #### [address] Hematocrit (Bld) [Volume fraction] 32.2 % Low 34.0-46.4 [facility] Comment on above: Performed By: #### C BCNO #### [address] Hemoglobin (Bld) [Mass/Vol] 11.1 g/dL Low 11.8-15.4 [facility] Comment on above: Performed By: #### C BCNO #### [place] [address] [place] MCH (RBC) [Entitic mass] 31.3 pg Normal 24.7-34.3 [facility] Comment on above: Performed By: #### C BCNO #### [facility] [address] MCV (RBC) [Entitic vol] 90.8 fL Normal 80-100 [facility] Comment on above: Performed By: #### C BCNO #### [address] Mean Corpuscular HGB Conc 34.4 g/dL Normal 32.0-35.0 [facility] Comment on above: Performed By: #### C BCNO #### [facility] [address] Platelet mean volume (Bld) [Entitic vol] 8.2 fL Normal 6.3-10.7 [facility] Comment on above: Result Comment: PERF ORMED BY: [place] [address] PATHOLOGIST CHILD LIFE THERAPIST SHAHANA BRITTON M.D. Performed By: #### C BCNO #### [facility] [address] Platelets (Bld) [#/Vol] 219 10*3/uL Normal 150-450 [facility] Comment on above: Performed By: #### C BCNO #### [address] RBC (Bld) [#/Vol] 3.55 10*6/uL Low 3.60-5.00 [facility] Comment on above: Performed By: #### C BCNO #### [address] WBC (Bld) [#/Vol] 7.2 10*3/uL Normal 3.8-11.6 [facility] Comment on above: Performed By: #### C BCNO #### [address] Laboratory - Chemistry and C hemistry - challengeon 01-03-2024 Albumin [Mass/Vol] 3.8 g/dL 3.5 - 5.7 g/dL [facility] Albumin/Globulin [Mass ratio] 1.7 {ratio} [facility] ALP [Catalytic activity/Vol] 34 U/L 34 - 104 U/L [facility] ALT [Catalytic activity/Vol] 9 U/L 7 - 52 U/L [facility] Anion gap [Moles/Vol] 8.8 mmol/L 6.0 - 15.0 meq/L [facility] AST [Catalytic activity/Vol] 18 U/L 13 - 39 U/L [facility] Bilirubin [Mass/Vol] 0.4 mg/dL 0.3 - 1 .0 mg/dL [facility] Calcium [Mass/Vol] 8.6 mg/dL 8.6 - 10. 3 mg/dL [facility] Chloride [Moles/Vol] 106 mmol/L 98 - 10 7 mmol/L [facility] CO2 [Moles/Vol] 25.6 mmol/L 21.0 - 31.0 mmol/L [facility] Creatinine (U) [Mass/Vol] 0.48 mg/dL Low 0.60 - 1.20 mg/dL [facility] Globulin (S) [Mass/Vol] 2.2 g/dL N [facility] Glucose [Mass/Vol] 70 mg/dL 70 - 100 mg/dL [facility] Comment on above: Random Glucose Refer ence Range is dependent on time and content of last meal. Glucose of more than 200 mg/dL in a nonstressed, ambulatory subject supports the diagnosis of Diabetes Mellitus. ADA recommended reference range Potassium [Moles/Vol] 4.4 mmol/L 3.5 - 5.1 mmol/L [facility] Protein [Mass/Vol] 6 g/dL Low 6.4 - 8.9 g/dL [facility] Sodium [Moles/Vol] 136 mmol/L 136 - 145 mmol/L [facility] Urea nitrogen [Mass/Vol] 9 mg/dL 7 - 25 mg/dL [facility] Laboratory - Hematology and Cell counts 01-03-2024 Erythrocyte distribution width (RBC) [Ratio] 13.3 % 11.9 - 15.3 % [facility] Hematocrit (Bld) [Volume fraction] 32.2 % Low 34.0 - 46.4 % [facility] Hemoglobin (Bld) [Mass/Vol] 11.1 g/dL Low 11.8 - 15.4 g/dL [facility] MCH (RBC) [Entitic mass] 31.3 pg 24.7 - 34.3 pg [facility] MCHC (RBC) [Mass/Vol] 34.4 g/dL 32.0 - 35.0 g/dL [facility] MCV (RBC) [Entitic vol] 90.8 fL 80 - 100 fL [facility] Platelet mean volume (Bld) [Entitic vol] 8.2 fL 6.3 - 10.7 fL [facility] Platelets (Bld) [#/Vol] 219 10*3/uL 150 - 450 10*3/uL [facility] Laboratory - Urinalysison RBC LM.HPF (Urine sed) [#/Area] 3.55 10*6/uL Low 3.60 - 5.00 10*6/uL [facility] WBC LM.HPF (Urine sed) [#/Area] 7.2 10*3/uL 3.8 - 11.6 10*3/uL [facility] Leukocytes [#/volume] correc dionicio for nucleated erythrocytes in Blood by Automated counOrdered By: Yaritza Gonzalez on 01-03-2024 WBC corrected for nucl RBC Auto (Bld) [#/Vol] Leukocytes [#/volume] corrected for nucleated erythrocytes in Blood by Automated coun 3.8-11.6 [facility] MCH Auto (RBC) [Entitic mass ]Ordered By: Yaritza Gonzalez on 01-03-2024 MCH (RBC) [Entitic mass] MCH [Entitic mass] by Automated count 24.7-34.3 [facility] MCHC Auto (RBC) [Mass/Vol]Or dered By: Yaritza Gonzalez on 01-03-2024 MCHC (RBC) [Mass/Vol] MCHC [Mass/volume] by Automated count 32.0-35.0 [facility] MCV Auto (RBC) [Entitic vol] Ordered By: Yaritza Gonzalez on 01-03-2024 MCV (RBC) [Entitic vol] MCV [Entitic vol ume] by Automated count 80-100 [facility] No Panel Informationon 01-02 ESTIMATED GFR mL/Min [facility] Interpretation and review of laboratory results Abnormal [facility] Interpretation and review of laboratory results Abnormal [facility] No Panel InformationOrdered By: Yaritza Gonzalez on 01-03-2024 Estimated GFR (CKD-EPI) > 60.0 mL/Min [facility]acy Creatinine Clearance (Chem N/A [facility] Platelet mean volume Auto (B ld) [Entitic vol]Ordered By: Yaritza Gonzalez on 01-03-2024 Platelet mean volume (Bld) [Entitic vol] Platelet mean volume [Entitic volume] in Blood by Automated count 6.3-10.7 [facility] Platelets Auto (Bld) [#/Vol] Ordered By: Yaritza Gonzalez on 01-03-2024 Platelets (Bld) [#/Vol] Platelets [#/vol ume] in Blood by Automated count 150-450 [facility] Potassium [Moles/volume] in Serum or PlasmaOrdered By: Yaritza Gonzalez on 01-03-2024 Potassium [Moles/Vol] Potassium [Moles/volume] in Serum or Plasma 3.5-5.1 [facility] Protein [Mass/volume] in Ser um or PlasmaOrdered By: Yaritza Gonzalez on 01-03-2024 Protein [Mass/Vol] Protein [Mass/volume] in Serum or Plasma Low 6.4-8.9 [facility] RBC Auto (Bld) [#/Vol]Ordere d By: Yaritza Gonzalez on 01-03-2024 RBC (Bld) [#/Vol] Erythrocytes [#/volume] in Blood by Automated count Low 3.60-5.00 [facility] Serum or plasma albumin/glob ulin mass ratioOrdered By: Yaritza Gonzalez on 01-03-2024 Albumin/Globulin [Mass ratio] Serum or plasma albumin/globulin mass ratio [facility] Serum or plasma anion gap de terminationOrdered By: Yaritza Gonzalez on 01-03-2024 Anion gap [Moles/Vol] Serum or plasma anion gap determination 6.0-15.0 [facility] Sodium [Moles/volume] in Ser um or PlasmaOrdered By: Yaritza Gonzalez on 01-03-2024 Sodium [Moles/Vol] Sodium [Moles/volume] in Serum or Plasma 136-145 [facility] Urea nitrogen [Mass/volume] in Serum or PlasmaOrdered By: Yaritza Gonzalez on 01-03-2024 Urea nitrogen [Mass/Vol] Urea nitrogen [Mass/volume] in Serum or Plasma 7-25 [facility] IGP,APTIMA HPV,AGE GDLNon AGE GDLN ACOG TESTING Note . [facility] Comment on above: TESTS RESULT FLAG UN ITS REF RANGE LAB Clinician Provided Cytology Information Source.............Cervix No. of containers..01 ThinPrep Vial Age Mayo Ni... FLAG LEGEND: L-Low Normal,H-High Normal,LL-Alert Low,HH-Alert High <-Panic Low,>-Panic High,A-Abnormal,AA-Critical Abnormal Performed at: 01 =G [address] [phone] Laila Addison MD, IGP, RFX APTIMA HPV ASCU Note . [facility] Comment on above: TESTS RESULT FLAG UN ITS REF RANGE LAB DIAGNOSIS: 02 NEGATIVE FOR INTRAEPITHELIAL LESION OR MALIGNANCY. THIS SPECIMEN WAS RESCREENED PART OF OUR INSPECTOR BALANCE BRIDGE PROGRAM. Specimen adequacy: 02 Satisfactory for evaluation. Endocervical and/or squamous metaplastic cells (endocervical component) are present. Performed by: 03 Rachael Baig, Clinical Documentation Clerk (ASC) QC reviewed by: 02 Mary Gonsalves, Clinical Documentation Clerk (ASC) . 02 Note: Note 02 The [...] <-Panic Low,>-Panic High,A-Abnormal,AA-Critical Abnormal Performed at: [address] [phone] Laila Addison MD, 03 [facility] [address] [address] V Hugo PhD, Performed at: = - [address] [id number] Hydraulic Spinner: Laila Addison MD, Phone: [phone] Performed at: [facility] [address] [id number] Hydraulic Spinner: Laila Addison MD, Phone: [phone] SPATULA-ALONE CERVIX [facility] US.doppler Lower extremity v matthieu villanueva 01-02-2024 EXAM: [facility] US LOWER EXTREMITY VENOUS DUPLEX LEFT HISTORY: [...] PITER CULVER MD at 02-Jan-2024 05:15:11 PM [facility] Piter Culver MD - 01/02/2024 EXAM: VAS US LOWER EXTREMITY VENOUS DUPLEX [...] PITER CULVER MD at 02-Jan-2024 05:15:11 PM [facility] Radiology Study observation (narrative) [facility] US.doppler Lower extremity v ein - leftOrdered By: Piter Culver on 01-02-2024 [facility] Work Phone: [facility] US LOWER EXTREMITY VENO US DUPLEX LEFTon [...] PITER CULVER MD at 02-Jan-2024 05:15:11 PM [facility] Normal Not Available RECURRENT VAGINITIS (HTRX)on 12-26-2023 ATOPOBIUM VAGINAE 0 [facility] ATOPOBIUM VAGINAE Not detected [facility] BVAB 2,3 (BACTERIAL VAGINOSIS ASSOCIATED BACTERIA 2, 3); MOBILUNCUS SPP 0 [facility] BVAB 2,3 (BACTERIAL VAGINOSIS ASSOCIATED BACTERIA 2, 3); MOBILUNCUS SPP Not detected [facility] ROWENA ALBICANS, PARAPSILOSIS, TROPICALIS 0 [facility] ROWENA ALBICANS, PARAPSILOSIS, TROPICALIS Not detected [facility] ROWENA GLABRATA 0 [facility] ROWENA GLABRATA Not detected [facility] ROWENA KRUSEI 0 [facility] ROWENA KRUSEI Not detected [facility] CHLAMYDIA TRACHOMATIS 0 [facility] CHLAMYDIA TRACHOMATIS Not detected [facility] GARDNERELLA VAGINALIS 0 [facility] GARDNERELLA VAGINALIS Not detected N [facility] MEGASPHAERA (TYPES 1, 2) 0 [facility] MEGASPHAERA (TYPES 1, 2) Not detected [facility] MYCOPLASMA GENITALIUM 0 [facility] MYCOPLASMA GENITALIUM Not detected N [facility] NEISSERIA GONORRHOEAE 0 [facility] NEISSERIA GONORRHOEAE Not detected N [facility] TRICHOMONAS VAGINALIS 0 [facility] TRICHOMONAS VAGINALIS Not detected N [facility] Urinalysis macro (dipstick) panel (U)on 12-24-2023 Bilirubin, UA Negative Negative - 4(70) +++ mg/dL [facility] Blood, UA Negative Negative - 50 Soto/mcL [facility] Clarity, UA Clear [facility] Color, UA Yellow [facility] Glucose, UA Negative Negative - 1999(110) ++++ mg/dL [facility] Interpretation and review of laboratory results Normal [facility] Ketones, UA Positive Negative - 160(16) ++++ mg/dL [facility] Leukocytes, UA Positive Negative - 500+++ Adarsh/mcL [facility] Nitrite, UA Negative Negative - Positive [facility] pH, UA 5.5 5 - 9 [facility] Protein, UA Negative Negative - 1999(20) ++++ mg/dL [facility] Spec Grav, UA 1.02 1 - 1.03 [facility] Urobilinogen, UA 1.0 0.2 - 12 mg/dL [facility] Urinalysis macro (dipstick) panel (U)on 11-25-2023 Bilirubin, UA Negative Negative - 4(70) +++ mg/dL [facility] Blood, UA Negative Negative - 50 Soto/mcL [facility] Clarity, UA Clear [facility] Color, UA Yellow [facility] Glucose, UA Negative Negative - 1999(110) ++++ mg/dL [facility] Interpretation and review of laboratory results Abnormal [facility] Ketones, UA Negative Negative - 160(16) ++++ mg/dL [facility] Leukocytes, UA Trace Negative - 500+++ Adarsh/mcL [facility] Nitrite, UA Negative Negative - Positive [facility] pH, UA 5.5 5 - 9 [facility] Protein, UA Negative Negative - 1999(20) ++++ mg/dL [facility] Spec Grav, UA 1.02 1 - 1.03 [facility] Urobilinogen, UA 0.2 0.2 - 12 mg/dL [facility] ALL CBC WITH AUTO DIFFon BASOPHILS ABSOLUTE AUTO 0.0 N [facility] Basophils/100 WBC (Bld) 0.4 % 0.2 - 2.0 % [facility] Eosinophils/100 WBC (Bld) 1.3 % 0.9 - 7.0 % [facility] Erythrocyte distribution width (RBC) [Ratio] 11.9 % 11.0 - 15.0 % [facility] Hematocrit (Bld) [Volume fraction] 37.1 % 36.0 - 48.0 % [facility] Hemoglobin (Bld) [Mass/Vol] 12.6 g/dL 12.0 - 16.0 g/dL [facility] IMMATURE GRANULOCYTES ABS AUTO 0.04 High [facility] Immature granulocytes/100 WBC (Bld) 0.5 % 0.0 - 0.5 % [facility] Interpretation and review of laboratory results Abnormal [facility] LYMPHOCYTES ABSOLUTE AUTO 1.6 [facility] Lymphocytes/100 WBC (Bld) 18.7 % Low 20.5 - 60.0 % [facility] MCH (RBC) [Entitic mass] 30.5 pg 26.7 - 34.0 pg [facility] MCHC (RBC) [Mass/Vol] 34.0 g/dL 29.9 - 35.2 g/dL [facility] MCV (RBC) [Entitic vol] 89.8 fL 81.0 - 99.0 fL [facility] MONOCYTES ABSOLUTE AUTO 0.8 N [facility] Monocytes/100 WBC (Bld) 9.0 % 1.7 - 12.0 % [facility] NEUTROPHILS ABSOLUTE AUTO 5.9 [facility] Neutrophils/100 WBC (Bld) 70.1 % 43.0 - 75.0 % [facility] Platelet mean volume (Bld) [Entitic vol] 10.5 fL 9.5 - 13.5 fL [facility] TBH EO # 0.1 [facility] PLT 231 [facility] RBC 4.13 Low [facility] WBC 8.4 [facility] HCG ( test) Ql (U)o n 10-23-2023 Interpretation and review of laboratory results Abnormal [facility] Preg Test, Ur Positive [facility] Urinalysis macro (dipstick) panel (U)on 10-23-2023 Bilirubin, UA Negative Negative - 4(70) +++ mg/dL [facility] Blood, UA Positive Negative - 50 Soto/mcL [facility] Comment on above: small Clarity, UA Clear [facility] Color, UA Yellow [facility] Glucose, UA Negative Negative - 1999(110) ++++ mg/dL [facility] Interpretation and review of laboratory results Abnormal [facility] Ketones, UA Negative Negative - 160(16) ++++ mg/dL [facility] Leukocytes, UA Positive Negative - 500+++ Adarsh/mcL [facility] Comment on above: large Nitrite, UA Negative Negative - Positive [facility] pH, UA 5.5 5 - 9 [facility] Protein, UA Negative Negative - 2000(20) ++++ mg/dL [facility] Spec Grav, UA 1.025 1 - 1.03 [facility] Urobilinogen, UA 0.2 0.2 - 12 mg/dL [facility] ECG *OFFICE ONLY*on 06-11 [facility] ECG *OFFICE ONLY* [facility] [address] Electrocardiograph Report Signed Patient: Shiv Evangelista MR#: [id number] : 2000 Acct:[id number] Age/Sex: 23 / F ADM Date: 07/04/23 Loc: EKGCARDIO Room: Type: [facility] Attending Dr: Artur Kang MD Ordering Provider: [...] abnormality Abnormal ECG Confirmed by Emmy Jimenez ([id number]) on 07/08/2023 1:09:14 PM Referred By: Electronically Signed By:Emmy Jimenez Transcribed By: MUS Signed By Emmy Jimenez MD 4 1309 Normal [facility] Basophils Auto (Bld) [#/Vol] Ordered By: YUVAL PETE on 09-19-2022 Basophils (Bld) [#/Vol] 0.0 10*3/uL 0.0-0.2 [facility] Basophils/100 WBC Auto (Bld) Ordered By: YUVAL PETE on 09-19-2022 Basophils/100 WBC (Bld) 0.2 % . F [facility] Eosinophils Auto (Bld) [#/Vo l]Ordered By: YUVAL PETE on 09-19-2022 Eosinophils (Bld) [#/Vol] 0.0 10*3/uL 0.0-0.45 [facility] Eosinophils/100 WBC Auto (Bl d)Ordered By: YUVAL PETE on 09-19-2022 Eosinophils/100 WBC (Bld) 0.1 % . [facility] Erythrocyte distribution wid th Auto (RBC) [Ratio]Ordered By: YUVAL PETE on 09-19-2022 Erythrocyte distribution width (RBC) [Ratio] 13.3 % 11.9-15.3 [facility] Hematocrit Auto (Bld) [Volum e fraction]Ordered By: YUVAL PETE on 09-19-2022 Hematocrit (Bld) [Volume fraction] 28.0 % 34.0-46.4 [facility] Hemoglobin [Mass/volume] in BloodOrdered By: YUVAL PETE on 09-19-2022 Hemoglobin (Bld) [Mass/Vol] 9.3 g/dL 11.8-15.4 [facility] Leukocytes [#/volume] correc dionicio for nucleated erythrocytes in Blood by Automated counOrdered By: YUVAL PETE on 09-19-2022 WBC corrected for nucl RBC Auto (Bld) [#/Vol] 14.2 10*3/uL 3.8-11.6 [facility] Lymphocytes Auto (Bld) [#/Vo l]Ordered By: YUVAL PETE on 09-19-2022 Lymphocytes (Bld) [#/Vol] 1.2 10*3/uL 1.00-4.8 [facility] Lymphocytes/100 WBC Auto (Bl d)Ordered By: YUVAL PETE on 09-19-2022 Lymphocytes/100 WBC (Bld) 8.5 % . [facility] MCH Auto (RBC) [Entitic mass ]Ordered By: YUVAL PETE on 09-19-2022 MCH (RBC) [Entitic mass] 28.7 pg 24.7-34.3 [facility] MCHC Auto (RBC) [Mass/Vol]Or dered By: YUVAL PETE on 09-19-2022 MCHC (RBC) [Mass/Vol] 33.2 g/dL 32.0-35.0 [facility] MCV Auto (RBC) [Entitic vol] Ordered By: YUVAL PETE on 09-19-2022 MCV (RBC) [Entitic vol] 86.3 fL 80-[address] [facility] Monocytes Auto (Bld) [#/Vol] Ordered By: YUVAL PETE on 09-19-2022 Monocytes (Bld) [#/Vol] 1.5 10*3/uL 0.0-0.8 [facility] Monocytes/100 WBC Auto (Bld) Ordered By: YUVAL PETE on 09-19-2022 Monocytes/100 WBC (Bld) 10.2 % . F [facility] Neutrophils Auto (Bld) [#/Vo l]Ordered By: YUVAL PETE on 09-19-2022 Neutrophils (Bld) [#/Vol] 11.5 10*3/uL 1.8-7.7 [facility] Neutrophils/100 WBC Auto (Bl d)Ordered By: YUVAL PETE on 09-19-2022 Neutrophils/100 WBC (Bld) 81.0 % . [facility] Nucleated erythrocytes [Pres ence] in Blood by Automated countOrdered By: YUVAL PETE on 09-19-2022 Nucleated RBC Auto Ql (Bld) 0.0 /100{WBC} 0-0.5 [facility] Platelet mean volume Auto (B ld) [Entitic vol]Ordered By: YUVAL PETE on 09-19-2022 Platelet mean volume (Bld) [Entitic vol] 8.8 fL 6.3-10.7 [facility] Platelets Auto (Bld) [#/Vol] Ordered By: YUVAL PETE on 09-19-2022 Platelets (Bld) [#/Vol] 181 10*3/uL 150-450 [facility] RBC Auto (Bld) [#/Vol]Ordere d By: YUVAL PETE on 09-19-2022 RBC (Bld) [#/Vol] 3.24 10*6/uL 3.60-5.00 [facility] WBC Auto (Bld) [#/Vol]Ordere d By: YUVAL PETE on 09-19-2022 WBC (Bld) [#/Vol] 14.2 10*3/uL 3.8-11.6 [facility] Amphetamine Screen Ql (U)Ord ered By: YUVAL PETE on 09-18-2022 Amphetamines Ql (U) Negative Negative [facility] Automated epithelial cells c ount in [...] on 09-18-2022 Benzodiazepines Ql (U) Negative Negative [facility] Benzoylecgonine [Presence] i n Urine by Screen methodOrdered By: YUVAL PETE on 09-18-2022 Benzoylecgonine Screen Ql (U) Negative Negative [facility] Bilirubin Test strip Ql (U)O rdered By: YUVAL PETE on 09-18-2022 Bilirubin Ql (U) Negative Negative [facility] Color Auto (U)Ordered By: CHARLES PETE on 09-18-2022 Color (U) Yellow Yellow [facility] Ketones Auto test strip (U) [Mass/Vol]Ordered By: YUVAL PETE on 09-18-2022 Ketones (U) [Mass/Vol] Negative Negative [facility] Nitrite Test strip Ql (U)Ord ered By: YUVAL PETE on 09-18-2022 Nitrite Ql (U) Negative Negative [facility] Opiates [Presence] in Urine by Screen methodOrdered By: YUVAL PETE on 09-18-2022 Opiates Screen Ql (U) Negative Negative [facility] Phencyclidine Screen Ql (U)O rdered By: YUVAL PETE on 09-18-2022 Phencyclidine Ql (U) Negative Negative [facility] Comment on above: These are unconfirme d results and should not be used for legal purposes. Drug Cut-Off Concentration: AMPH 1000 ng/mL LESLEY 200 ng/mL NETTIE 200 ng/mL COCM 300 ng/mL OP 300 ng/mL PCP 25 ng/mL Protein Auto test strip (U) [Mass/Vol]Ordered By: YUVAL PETE on 09-18-2022 Protein (U) [Mass/Vol] Negative Negative [facility] Reagin Ab [Presence] in Seru m by RPROrdered By: YUVAL PETE on 09-18-2022 Reagin Ab RPR Ql (S) Non-Reactive Non Reactive [facility] Comment on above: Performed at: [address] [id number] Director: Tony Avila PhD, Phone: [phone] Specific gravity Auto test s trip (U) [Rel density]Ordered By: YUVAL PETE on 09-18-2022 Specific gravity (U) [Rel density] 1.004 1.001-1.030 [facility] Urine bacteria detection by automated methodOrdered By: YUVAL PETE on 09-18-2022 Bacteria Auto Ql (U) 2+ None Seen [facility] Urine clarity by refractomet ry automatedOrdered [...] (U) 4+ Negative [facility] Urobilinogen Auto test strip (U) [Mass/Vol]Ordered By: YUVAL PETE on 09-18-2022 Urobilinogen (U) [Mass/Vol] Normal mg/dL Normal [facility] pH Auto test strip (U)Ordere d By: YUVAL PETE on 09-18-2022 pH (U) 7.0 [pH] 5.0-9.0 [facility] Group B Streptococcus cultur eOrdered By: Chica Newman on 09-03-2022 S. agalactiae Org specific cx Ql (Unsp spec) No Group B Beta Streptococcus Isolated 3 Days [facility] Amphetamine Screen Ql (U)Ord ered By: Terence Garcia on 08-10-2022 Amphetamines Ql (U) Negative Negative [facility] Automated erythrocytes count in urine sediment (number/area)Ordered By: Terence Garcia on 08-10-2022 RBC Auto (Urine sed) [#/Area] 0-1 [HPF] 0-4 [facility] Automated leukocytes count i n urine sediment (number/area)Ordered By: Terence Garcia on 08-10-2022 WBC Auto (Urine sed) [#/Area] 10-19 [HPF] 0-4 [facility] Barbiturates [Presence] in U rine by Screen methodOrdered By: Terence Garcia on 08-10-2022 Barbiturates Screen Ql (U) Negative Negative [facility] Benzodiazepines Screen Ql (U )Ordered By: Terence Garcia on 08-10-2022 Benzodiazepines Ql (U) Negative Negative [facility] Benzoylecgonine [Presence] i n Urine by Screen methodOrdered By: Terence Garcia on 08-10-2022 Benzoylecgonine Screen Ql (U) Negative Negative [facility] Bilirubin Test strip Ql (U)O rdered By: Terence Garcia on 08-10-2022 Bilirubin Ql (U) Negative Negative [facility] Color Auto (U)Ordered By: Carla Garcia on 08-10-2022 Color (U) Yellow Yellow [facility] Ketones Auto test strip (U) [Mass/Vol]Ordered By: Terence Garcia on 08-10-2022 Ketones (U) [Mass/Vol] Negative Negative [facility] - UrinalysisOrder ed By: Terence Garcia on 08-10-2022 Hyaline casts LM Ql (Urine sed) None seen [LPF] 0-8 [facility] Nitrite Test strip Ql (U)Ord ered By: Terence Garcia on 08-10-2022 Nitrite Ql (U) Negative Negative [facility] No Panel InformationOrdered By: Terence Garcia on 08-10-2022 Membranes Rupture (PAMG-1) Negative Negative [facility] Opiates [Presence] in Urine by Screen methodOrdered By: Terence Garcia on 08-10-2022 Opiates Screen Ql (U) Negative Negative [facility] Phencyclidine Screen Ql (U)O rdered By: Terence Garcia on 08-10-2022 Phencyclidine Ql (U) Negative Negative [facility] Comment on above: These are unconfirme d results and should not be used for legal purposes. Drug Cut-Off Concentration: AMPH 1000 ng/mL LESLEY 200 ng/mL NETTIE 200 ng/mL COCM 300 ng/mL OP 300 ng/mL PCP 25 ng/mL Protein Auto test strip (U) [Mass/Vol]Ordered By: Terence Garcia on 08-10-2022 Protein (U) [Mass/Vol] Negative Negative [facility] Specific gravity Auto test s trip (U) [Rel density]Ordered By: Terence Garcia on 08-10-2022 Specific gravity (U) [Rel density] 1.004 1.001-1.030 [facility] Squamous epithelial cells de tection in urine sediment by light microscopyOrdered By: Terence Garcia on 08-10-2022 Epithelial cells.squamous LM Ql (Urine sed) 0-1 [HPF] 0-2 [facility] Urine bacteria detection by automated methodOrdered By: Terence Garcia on 08-10-2022 Bacteria Auto Ql (U) None seen None Seen [facility] Urine clarity by refractomet ry automatedOrdered By: Terence Garcia on 08-10-2022 Clarity Refractometry automated (U) Clear Clear [facility] Urine culture routineOrdered By: Terence Garcia on [...] (U) 4+ Negative [facility] Urobilinogen Auto test strip (U) [Mass/Vol]Ordered By: Terence Garcia on 08-10-2022 Urobilinogen (U) [Mass/Vol] Normal mg/dL Normal [facility] pH Auto test strip (U)Ordere d By: Terence Garcia on 08-10-2022 pH (U) 7.0 [pH] 5.0-9.0 [facility] Cytology Cervical or vaginal smear or scraping studyon 03-12-2022 [facility] Coding Summary.on 11-28-2021 Coding Summary. [id number] Gh0bWw+PGhlYWQ+PE1FV HWkZ71ncPJxeI9YP4bPW F1BHAZADWDNSH8VDH8wx TG6YFpsH0QdlfUd RybhdTVmHU69PBw9YYV4 pUgsQWmlqW0dyCEyA5u8 SaYhFD07sS77PEyvMDVb UhX4XmNgblrfbZMd Y2gcElBbjBZfTay+PHRh YmxlIHdpZHRoPScxMDAl MyFetPtpQP9mFs6mNAHd LWNvbGxhcHNlOiBj b8goMVPoPLimIY5ekHfv I6ChrFU3DTRdw2t4Qy93 dHI+FWFwOQN8iFqzUTjb p780JnLwj9hoJRN3 gQOuEHvdPPM6P93mk5X8 VXZeQMGyRBL5nIN9aC8c nGqwpqxwG2LthWHcLyX9 KCZ0fBKcpD3icPdm vvfqrX6gDkn+H28WCL5S TRQORP0KAnq9Q1FtUxqu dHI+SH58TRNnTO12nHNm xJEkm5tcrSw9MhEc QZCnNKT5nUulKYxmx3Ym FUSpH89opUIxn0Y3CIGv tJenuDNcKgMccCI5uU4v FGzcdtgyp7ogcfva Ahdef8dpoq96lS58M20a EKtvQUTwYAS5OHVhLRVc hFwrft4mvC6eDp2+IDxj f0zrd6qdiFo5VoAb CTXzzmHinBhkPHB6j7Lk Jq64B7LnpKkvm7MzIqb1 uc99kNRev6Z6eKD9DLlh OIPyzG7eZViuIuY9 ZFAiHxCwhN33yRHzAOlj Pd8ncAhaqOdfCW9iQSTm qxcaWLOpmB2kCYTdfTBj eFzgNU5qCOTzraqa x523UcOvUCZ0QSMqsWSt Z2FxhM0zTuQwPAWfBOQe N5UidIYtBSjlC527KJji PhJ9XLZejtGhV1Rv FNOhvHlaChS0h6W1Wc9R m0AbebnrMAY9SSjpLIHr IiC3ZoBhCrZ8Z1ChEid3 YNEyuWoqBZ0xZ6Xi ZCOqlliggrwjvLB3VBJz GTUegN67iDCgVQjbMe0a e6Y1h115RCKwJZOkvV68 Zo4fpNmgNPPtwEPA wR3orponu3mthwbmZqZw KAQmKAp7VXe1OZTmvKqt JfPiZYS7TuR0LIF6jRSt iC7leKxcdunojX3k Oyc+D06stU6tMUG7DXC6 igdvPPGchrUaAU29AD88 T9UgBmyetOHloRM+PGRp mpOysDdsWY0qNhPj h3bmk9WpQZhpQ7QbGZUr ZLgjGcl2SBAtKLS5dQG1 zZ4wRCMsYXrxg6S3bQX9 U4QqmtZqkf7rp6ej VYToPXtjP67bwVYpu1S8 WNOeaGI3IFZxoBefGkOt dE69Ktw+HUMopDqfw5Uq Msagl6eqw8qvoQb9 IjMwJSIgdmFsaWduPSJ0 q9YvXx59O15aOQhcABPc ZNLpKFPdDUPdtFfivf7b bA4gDa8+PGNvbCB3 pPR2kN8pBANxYpI1RJvf D449UcOljARyFkbdb4hw i6romEd6IuHuXCWmroKx pYlhNLV3z2LsZf05 X50yWJwoNXNjXVNrRHEg CCKezZxynq8mtJ4rQa9+ ZQ1of2pfwz93jT09dFH+ ZKSzMLC2kJysBMmm CGTqpG3kUJcxBqV8EWPx ZvZncP25kTVoPVlcFi9x rIfvoEtzGJ3uLGWwnwpi v915CyUpa5ilGIYs jUAcPVbiXUW0E42up2X6 FBErPUHhTPF6eCV9yJ3s bGlnbjogbGVmdDsgdmVy pQtuKIofHKhoT858 IHRvcDsnPlBhdGllbnQg NoIhGFb7H9IgJaj9LINw eJhfMU2elOKuSZsvYd5w yKszmBesGU5aFRRr aomth821UkUqu3iiZJQo vHWmKRwlBKE8W80tw4U2 EZUjPCEnJCT2mNF3fJ6e bGlnbjogbGVmdDsg uqTbgWwsXVtuXRnoA612 IHRvcDsnPkJpcnRoIERh hXV4ZJ01WJ68fTLsg1O7 qTA1W7FsZFLijzli kywhfKM6TCYvLOAspZ44 Sk3qrLxqXk3bTVNcHTN5 QLDzpISwB9SfxK1tOkWn HSLjROGxO3CusMLr DFdsT282RWhcJjH1QWPz piVnF3QwZMQemEhcLtO5 z5A3Sj3OB0O3CF33JQ53 xVKwl9W7mAL1C6Ty NVBkapjrvoelmSU8UMKh UTIomF53Hm9sgMihNg8z FSCzOAW5SBQloTFbT8Dx fQ3dBrYfGDTlMOTl T5NzlJTnNWgxY717CHmz EkX3RUXdbyOdS1OpHDKh wWcyHgZ2z9H8Bb2ZTLj9 CO24RG57gNOql4W6 pKI8Z2JkYNJtnmxkelgk rAF4WWGmUWNxfA88Vz2y iUguCg7nSFYqTOI9IIFm uMNbL5XthF8iAfPd NCYfAYDuI9FikYNtVYwm H844TZifLaL8JOMjpfHm V1BbJNBwzYnrFhF7x0U0 Md9MCRSxSU57SFK4 fMZ3IC42CA43H4WeEfdl dGFibGU+PHRhYmxlIHdp ZHRoPScxMDAlJyBzdHls AE7sAv4zIIVpMPAl kCsbjIGaXhVah1lyTZDp HKruLY3muMdlN7WuuFB3 IYKhy4h5Sj77E35sX7Dl dXA+OMOcaFX0iYY8 hX9rXxAiMtZ8UAahA003 YsGznWFbFpozc1mbp0xg qUb8LxL7CJLxjuXutJhz XIN1t8RbTl44Z69s IHdpZHRoPSIxNSUiIHZh nVirdo9lhY2tYl4+PGNv xAT0pTK8xR6kFgWhWpP3 OTtfS423NdVamCUh Rzxbh6vsp8ynlEg8TeWi DIYyaeLlcJigEUZ5i2Ix Sz05E6QcaSgjy8JcMok9 ji10nVAwo4I7eKQ2 L9EcAHUanpdkgRPynRxg GJ9oLFBwtheiALJzqV1v BWLwX2o2RgLpMjK5XIun O0VxfeT9EBLxjTBv GIezBPW6D62dv5H0NDDq IFCjMGV0xUD9uW4siXry bjogbGVmdDsgdmVydGlj DMxyLNwnT404RLBd vQbdBZMgkU1pRKIynXZf xHtvKZ2vLIOmafbaDpAE IDcpDSEVCF7AYKF4H5Yo Qis1TYBeuOsaVV4w fHAfZVrxZd0xsExfcMug GC5nOWAcowbhPLHcdF7h JZVhzAGssUloLP9rJPVd dfyvs088TwJyTXC7 HBTakQSbJ7RrcD3qYvSb MBUhAXRhE9HcyTCwEXgy J449KVebOdL4XLVwyhYf W6TpTCHatKktOlQ5 m3E8Un3iPW5zGT6xAOIk HR13ZS76aWRhl0T8jKB3 H1SpYLGjnnywmevtaCM5 ERNqRRUrqE76hAYt BIwxJn1kp2I0v792EHCx NSXxxG36Te0qbGfwKXHh xSUHcC0ewuett6jtcvxg FyKhAMMjBLg6JPm6 GYPduRybAzHxUAP0JyL2 TDG5hVTusR7pnUwwxfgb qF1uOky+MjAgWWVhcnM8 K7WhWdh7CANdhTpp SC9evROeGAspXw4eqJdm wVlhJV5yCEQvvqwcQPRv pB1oSFCulREobJcjQO2z VTQbksasi159SnQe QIZ9HVBdkJMdK7VfeN3a UsTuTKQeQXMdZ9DooSXv BMjwO938WZkyCqX9PXQt scAkM1VvKARhnYre GjK6g7J0Ot5MKW1wsKF6 P8ErVye3VCNjyIncXX8o wVIbIFjcAp9zvJzmzNip EQ9wZCRqwpbuHYWs xB6fGQMolSElxJyeHS9i WCAlavgst500RjOgCVA3 QIWpaAOzR7SyhG7bUhOk TPVsREXyG3KlwGBk CKizW069TEinTiB6DRRu reXhS8GhHMCosFafNaX8 q0W8Cl9GkJJbH7EvW1r8 H7JbMrknyHU+PC90 TCEwKG47oKDzpPSuo8oa nUs0VvYxADSkADW0mXlz UDefa2LvKNVgK62wtNZx k9A6KFDfkOabgCCo PdGjwFH3lQ9rQMsdmgnx y4vauiltYdeky6bcjl91 tC79V82dRDvdXAZdBMIu ICZxSJPhrRomwm6x jX0uBq7+OCZgdAU1zPZ7 wQ0lWcKbSlW5HRunM457 WhDtjWQsDjdri6csk9fs jFt2BqOmTUBwaxVz uQykPOY3g0YnHz23Q84p IHdpZHRoPSIyMCUiIHZh gObtxa9aiI3zIg0+PC9j u5mzef08rO91tJF+ OLMjNCK9uJnrVHreQZQd bW0jKXgvMrI2CLQzJrLb jI32bHWaFYdmNh8ozTlh pRtfMG3dSYTyfsos e635CsMjc5vgYGIcvEHk MEzxMFC0Z68wh7A0ILZv TKTuZJU7gCI7nB3owNrd bjogbGVmdDsgdmVy kCduZDtzVTjqP849DXZh fYvmAhJulSSrY5gaynDY WL5ePqzaiOK+PHRkIHN0 cXaxCImfPMUhcU1s SAWeP4z9HwUrEbX2TZpe P4JrxzY2ZRGlcQKrVEMz eFALpL2vhykfd5zceqzy JcUiYNMcMVu7ZGj1 GSGhjJhuMcKdPHC3XvR8 JAQ1mFAjdA9lsBplzhtv dH9jFys+RklOOjwvdGQ+ GQRwNRE1sBnuZSkq OXSylT5nRXRzX1c4MzIf ZoD8VMqtN8VpllL2XOAh oOAaTXLyeZBLbS1udvzv z6qvfwtzQmPkQIKg FDl0RFq6DDKsnOksPkEz ETG3FeE9TLH7pWPguO4q lCzsjpimqC6cCne+TVJO OjwvdGQ+PHRkIHN0 qSlfKNgcNUWkjZ7rHGJa K5a8TiKjKrT2RIlaM3Hx skM7MGWebMOgFWDdcFSU dW0nacppt4gqlitr WuFjVGZiFJo9HWs2UZDw yLlbHnPuMEA9KyN1JSW8 sTForN9ldUclbqfoaM9o Oyc+MHN1YNU5UJ37 SP35Q0NkDvugrAZnvEQ+ PHRhYmxlIHdpZHRoPScx ZBQqGuDvzFmtXZ5gEe8k ZGVyLWNvbGxhcHNl OiBj (more content not included)... Normal [facility] Discharge Instructionson Discharge Instructions [id number]:127 Normal [facility] ED Clinical Summaryon 2021 ED Clinical Summary [place] [id number] ED Clinical Summary Person Information Name: SHIV EVANGELISTA [facility] Age: 21 Years : 2000 Sex: Female Language: Kiswahili PCP: OK TYSON DO Marital Status: Single [...] 11/25/2021 23:47:16 11/25/2021 23:47:16 11/25/2021 23:47:16 ADDRESS: [facility] [id number] PHYS DOC NOTES: MEDICAL INFORMATION: Prescriptions Given: Medications to Continue with No Changes Other Medications hydrOXYzine (Vistaril 25 mg Cap) 1-2 cap(s) By Mouth 4 times a day as needed as needed for anxiety. Refills: 0. PATIENT EDUCATION INFORMATION: Instructions: Migraine Headache Follow up: With: Address: When: [address], [address] [address] Business (1) In 3 days DIAGNOSIS: Migraine headache Normal [facility] ED Note-Physicianon 11-27-19 22 ED Note-Physician Basic Information Time Seen: Rayray [...] 5 mg/mL Inj, 10 mg, IV Push GI1896 [F], 1000 mL, IV Disposition Plan Discharge Prescription List Prescriptions No active prescription medications Follow-up With When Contact Information OK TYSON In [address], [facility] [address] [place] [phone] Business (1) Additional Instructions: Patient Education Migraine [...] Diagnostic Results No qualifying data available. Normal [facility] Comment on above: Result Comment: Elec [...] these instructions at home: Medicines ? Take yngq-brr-qpkxyyy and prescription medicines only as told by your health care provider. ? Ask your health care provider if the medicine prescribed to you: ? Requires you to avoid driving or using heavy machinery. ? Can cause constipation. You may need to take these actions to prevent or treat constipation: ? Drink enough fluid to keep your urine pale yellow. ? Take kggx-yfa-tivdbtk or prescription medicines. ? Eat foods that [...] different or (more content not included)... Normal [facility] ED Patient Summaryon 022 ED Patient Summary [address] [address] Patient Discharge Instructions Person Information Name: SHIV EVANGELISTA Age: 21 Years Arrival Date: 11/25/2021 18:57:45 Discharge Diagnosis: Migraine headache Primary Care Physician: OK TYSON DO Provider Information Primary Provider: Rayray Aquino DO Advanced Geological E Logger:None The exam and treatment you received in the Emergency Department were for an urgent problem and are not intended as complete care. It is important that you follow up with a doctor, nurse practitioner, or physician?s assistant chief of police for ongoing care. If your symptoms become [...] Instructions: With: Address: When: [address], [facility] [address] [place] [address] Business (1) In 3 days In the event that this physician does not participate in your insurance network, please consult with your insurance company to find a nearby participating provider. Patient Education Materials: Migraine Headache A MESSAGE TO ALL PATIENTS REGARDING OPIOIDS PRESCRIPTION OPIOIDS: WHAT YOU NEED TO KNOW Prescription opioids can be used to help relieve kwcgdkwm-bt-yllrda pain and are often prescribed following a [...] struggling with addiction, tell your health care companion and ask for guidance or call [facility]?S National Helpline at [phone]. v Source: Department of Health and [facility] (more content not included)... Normal [facility] Progress Note-Nurseon 2021 Progress Note-Nurse Pt. brought back to ed bed 13 Normal [facility] Progress Note-Nurse Pt. states her headache is completely gone and she is ready to go home. [facility] Consent for Treatmenton 11-10 Consent for Treatment [id number] 21 [id number] #1.00CD:127 [facility] Urine culture routineOrdered By: Ok Tyson [...] on 10-09-2021 Bilirubin Ql (U) Negative Negative [facility] Color Auto (U)Ordered By: Anna Tyson on 10-09-2021 Color (U) Yellow Yellow [facility] Ketones Auto test strip (U) [Mass/Vol]Ordered By: Ok Tyson on 10-09-2021 Ketones (U) [Mass/Vol] Negative Negative Fi [facility] Nitrite Test strip Ql (U)Ord ered By: Ok Tyson on 10-09-2021 Nitrite Ql (U) Negative Negative [facility] Protein Auto test strip (U) [Mass/Vol]Ordered By: Ok Tyson on 10-09-2021 Protein (U) [Mass/Vol] Negative Negative [facility] Specific gravity Auto test s trip (U) [Rel density]Ordered By: Ok Tyson on 10-09-2021 Specific gravity (U) [Rel density] 1.005 1.001-1.030 [facility] Urine bacteria detection by automated methodOrdered By: Ok Tyson on 10-09-2021 Bacteria Auto Ql (U) 3+ None Seen [facility] Urine clarity by refractomet ry automatedOrdered [...] on 09-13-2021 Albumin [Mass/Vol] 4.5 g/dL 3.2-5.5 [facility] Creatinine and Glomerular fi ltration rate.predicted panel (S/P/Bld)Ordered By: Ok Tyson on 09-13-2021 Creatinine [Mass/Vol] 0.71 mg/dL 0.44-1.03 [facility] Estimated glomerular filtrat ion rate (GFR) non- AmericanOrdered By: Ok Tyson on 09-13-2021 GFR/1.73 sq M.predicted among non-blacks MDRD (S/P/Bld) [Vol rate/Area] > 60 mL/Min [facility] Globulin Calc (S) [Mass/Vol] Ordered By: Ok Tyson on 09-13-2021 Globulin (S) [Mass/Vol] 2.5 g/dL [facility] No Panel InformationOrdered By: Ok Tyson [...] on 09-13-2021 Protein [Mass/Vol] 7.0 g/dL 6.1-7.9 [facility] Serum or plasma alanine schmid otransferase measurement [...] on 09-13-2021 Calcium [Mass/Vol] 9.2 mg/dL 8.2-10.2 [facility] Serum or plasma chloride danis surement (moles/volume)Ordered By: Ok Tyson on 09-13-2021 Chloride [Moles/Vol] 104 mmol/L 95-114 [facility] Serum or plasma glucose acosta urement (mass/volume)Ordered By: Ok Tyson on 09-13-2021 Glucose [Mass/Vol] 82 mg/dL 70-100 [facility] Comment on above: ADA recommended refe rence range Random Glucose Reference Range is dependent on time and content of last meal. Glucose of more than 200 mg/dL in a nonstressed, ambulatory subject supports the diagnosis of Diabetes Mellitus. Serum or plasma potassium me asurement (moles/volume)Ordered By: Ok Tyson on 09-13-2021 Potassium [Moles/Vol] 3.4 mmol/L 3.5-5.1 [facility] Serum or plasma sodium measu rement (moles/volume)Ordered By: Ok Tyson on 09-13-2021 Sodium [Moles/Vol] 139 mmol/L 136-146 [facility] Serum or plasma total biliru bin measurement (mass/volume)Ordered By: Ok Tyson on 09-13-2021 Bilirubin [Mass/Vol] 0.4 mg/dL 0.3-1.2 [facility] Serum or plasma total carbon dioxide measurement (moles/volume)Ordered By: Ok Tyson on 09-13-2021 CO2 [Moles/Vol] 28.3 mmol/L 22.0-30.0 [facility] Serum or plasma urea nitroge n measurement (mass/volume)Ordered By: Ok Tyson on 09-13-2021 Urea nitrogen [Mass/Vol] 8 mg/dL 11-02 [facility] Q - Strep pneumo Ab 23 serot ypeson 06-15-2021 SEROTYPE 1 (1) 91.[address] [facility] Comment on above: Order Comment: [facility] performed at: , [facility],, [address] [place] [address], , [employer] Circuit Board Layout Designer: Angela Feng MD,PhD,MANOHAR [facility] Date/Time: [facility] Results Received Date/Time: [facility] Reported Date/Time: FASTING: NO Performed By: #### 1 [id number] #### [facility] Default [address] [address] SEROTYPE 12 (12F) 3.7 Normal [facility] Comment on above: Order Comment: [facility] performed at: [facility], [facility],, [address] [place] [address], , [employer] Layout Designer: Angela Feng MD,PhD,MANOHAR [facility] Date/Time: [facility] Results Received Date/Time: [facility] Reported Date/Time: FASTING: NO Performed By: #### 1 [id number] #### [facility] Default [address] [address] SEROTYPE 14 (14) 163.4 Normal [facility] Comment on above: Order Comment: [facility] performed at: [facility], [facility],, [address] [place] [address], , [employer] Layout Designer: Angela Feng MD,PhD,MANOHAR [facility] Date/Time: [facility] Results Received Date/Time: [facility] Reported Date/Time: FASTING: NO Performed By: #### 1 [id number] #### [facility] Default [address] [place] [address] SEROTYPE 17 (17F) 4.6 Normal [facility] Comment on above: Order Comment: [facility] performed at: [facility], [facility],, [address] [place], [place] [address], , [employer] Layout Designer: Angela Feng MD,PhD,MANOHAR [facility] Date/Time: [facility] Results Received Date/Time: [facility] Reported Date/Time: FASTING: NO Performed By: #### 1 [id number] #### [facility] Default [address] [place] [address] SEROTYPE 19 (19F) 18.2 Normal [facility] Comment on above: Order Comment: [facility] performed at: [facility], [facility],, [address] [place], [place] [address], , [employer] Layout Designer: Angela Feng MD,PhD,MANOHAR [facility] Date/Time: [facility] Results Received Date/Time: [facility] Reported Date/Time: FASTING: NO Performed By: #### 1 [id number] #### [facility] Default [address] [place] [address] SEROTYPE 2 (2) 4.7 Normal [facility] Comment on above: Order Comment: [facility] performed at: [facility], [facility],, [address] [place], [place], , [employer] Layout Designer: Angela Feng MD,PhD,MANOHAR [facility] Date/Time: [facility] Results Received Date/Time: [facility] Reported Date/Time: FASTING: NO Performed By: #### 1 [id number] #### [facility] Default [address] [place] [address] SEROTYPE 20 (20) 3.8 Normal [facility] Comment on above: Order Comment: [facility] performed at: [facility], [facility],, [facility] [place], , [employer] Layout Designer: Angela Feng MD,PhD,MANOHAR [facility] Date/Time: [facility] Results Received Date/Time: [facility] Reported Date/Time: FASTING: NO Performed By: #### 1 [id number] #### [facility] Default [address] [place] [address] SEROTYPE 22 (22F) 4.0 Normal [facility] Comment on above: Order Comment: [facility] performed at: [facility], [facility],, [facility] [place], , [employer] Layout Designer: Angela Feng MD,PhD,MANOHAR [facility] Date/Time: [facility] Results Received Date/Time: [facility] Reported Date/Time: FASTING: NO Performed By: #### 1 [id number] #### [facility] Default [address] [place] [address] SEROTYPE 23 (23F) 5.7 [facility] Comment on above: Order Comment: [facility] performed at: [facility], [facility],, [facility] [place], , [employer] Layout Designer: Angela Feng MD,PhD,MANOHAR [facility] Date/Time: [facility] Results Received Date/Time: [facility] Reported Date/Time: FASTING: NO Performed By: #### 1 [id number] #### [facility] Default [address] [place] [address] SEROTYPE 26 (6B) 7.1 Normal [facility] Comment on above: Order Comment: [facility] performed at: [facility], [facility],, [facility] [place], , [employer] Layout Designer: Angela Feng MD,PhD,MANOHAR [facility] Date/Time: [facility] Results Received Date/Time: [facility] Reported Date/Time: FASTING: NO Performed By: #### 1 [id number] #### [facility] Default [address] [place] [address] SEROTYPE 3 (3) 5.2 Normal [facility] Comment on above: Order Comment: [facility] performed at: [facility], [facility],, [facility] [place], , [employer] Layout Designer: Angela Feng MD,PhD,MANOHAR [facility] Date/Time: [facility] Results Received Date/Time: [facility] Reported Date/Time: FASTING: NO Performed By: #### 1 [id number] #### [facility] Default [address] [place] [address] SEROTYPE 34 (10A) 20.3 Normal [facility] Comment on above: Order Comment: [facility] performed at: [facility], [facility],, [address] [place], [place], , [employer] Layout Designer: Angela Feng MD,PhD,MANOHAR [facility] Date/Time: [facility] Results Received Date/Time: [facility] Reported Date/Time: FASTING: NO Performed By: #### 1 [id number] #### [facility] Default [address] [place] [address] SEROTYPE 4 (4) 2.[address] [facility] Comment on above: Order Comment: [facility] performed at: [facility], [facility],, [address] [place], [place], , [employer] Layout Designer: Angela Feng MD,PhD,MANOHAR [facility] Date/Time: [facility] Results Received Date/Time: [facility] Reported Date/Time: FASTING: NO Performed By: #### 1 [id number] #### [facility] Default [address] [place] [address] SEROTYPE 43 (11A) 10.7 Normal [facility] Comment on above: Order Comment: [facility] performed at: [facility], [facility],, [address] [place] [address], , [employer] Circuit [employer] Layout Designer: Angela Feng MD,PhD,MANOHAR [facility] Date/Time: [facility] Results Received Date/Time: [facility] Reported Date/Time: FASTING: NO Performed By: #### 1 [id number] #### [facility] Default [address] [place] [address] SEROTYPE 5 (5) 2.[address] [facility] Comment on above: Order Comment: [facility] performed at: [facility], [facility],, [address] [place], [place], , [employer] Layout Designer: Angela Feng MD,PhD,MANOHAR [facility] Date/Time: [facility] Results Received Date/Time: [facility] Reported Date/Time: FASTING: NO Performed By: #### 1 [id number] #### [facility] Default [address] [place] [address] SEROTYPE 51 (7F) 4.3 Normal [facility] Comment on above: Order Comment: [facility] performed at: [facility], [facility],, [address] [place] [address], , [employer] Layout Designer: Angela Feng MD,PhD,MANOHAR [facility] Date/Time: [facility] Results Received Date/Time: [facility] Reported Date/Time: FASTING: NO Performed By: #### 1 [id number] #### [facility] Default [address] [place] [address] SEROTYPE 54 (15B) 9.3 Normal [facility] Comment on above: Order Comment: [facility] performed at: , [facility],, [address] [place] [address], , [employer] Layout Designer: Angela Feng MD,PhD,MANOHAR [facility] Date/Time: [facility] Results Received Date/Time: [facility] Reported Date/Time: FASTING: NO Performed By: #### 1 [id number] #### [facility] Default [address] [place] [address] SEROTYPE 56 (18C) 15.2 [facility] Comment on above: Order Comment: [facility] performed at: [facility], [facility],, [address] [place] [address], , [employer] Layout Designer: Angela Feng MD,PhD,MANOHAR [facility] Date/Time: [facility] Results Received Date/Time: [facility] Reported Date/Time: FASTING: NO Performed By: #### 1 [id number] #### [facility] Default [address] [place] [address] SEROTYPE 57 (19A) 1.3 [facility] Comment on above: Order Comment: [facility] performed at: [facility], [facility],, [address] [place] [address], , [employer] Layout Designer: Angela Feng MD,PhD,MANOHAR [facility] Date/Time: [facility] Results Received Date/Time: [facility] Reported Date/Time: FASTING: NO Performed By: #### 1 [id number] #### [facility] Default [address] [place] [address] SEROTYPE 68 (9V) 2.5 [facility] Comment on above: Order Comment: [facility] performed at: [facility], [facility],, [address] [place] [address], , [employer] Layout Designer: Angela Feng MD,PhD,MANOHAR [facility] Date/Time: [facility] Results Received Date/Time: [facility] Reported Date/Time: FASTING: NO Performed By: #### 1 [id number] #### [facility] Default [address] [place] [address] SEROTYPE 70 (33F) 2.5 [facility] Comment on above: Order Comment: [facility] performed at: [facility], [facility],, [address] [place] [address], , [employer] Layout Designer: Angela Feng MD,PhD,MANOHAR [facility] Collection Date/Time: [facility] [...] serotype-specific titers may have less robust responses. [employer] uses a multi-analyte immunodetection (MAID) method. The method employs the Get-n-Post flow cytometric system which measures multiple analytes [...] analytical performance characteristics have been determined by [employer]. It has not been cleared or approved by FDA. This assay has been validated pursuant to the CLIA regulations and used for clinical purposes. For additional information, please refer to http://education.PaymentOne.LapSpace/faq/DZC299 (This link is being provided for informational/ educational purposes only.) Performed By: #### 1 [id number] #### [facility] Default [address] [place] [address] SEROTYPE 8 (8) 9.8 Normal [facility] Comment on above: Order Comment: [facility] performed at: , [facility],, [address] [place], [address], [employer] Layout Designer: Angela Feng MD,PhD,MANOHAR [facility] Collection Date/Time: [id number] [facility] Results Received Date/Time: [facility] Reported Date/Time: FASTING: NO Performed By: #### 1 [id number] #### [facility] Default [address] [place] [address] SEROTYPE 9 (9N) 2.8 Normal [facility] Comment on above: Order Comment: [facility] performed at: [facility], [facility],, [address] [place], [address], [employer] Board Layout Designer: Angela Feng MD,PhD,AMNOHAR [facility] Date/Time: [id number] [facility] Results Received Date/Time: [facility] Reported Date/Time: FASTING: NO Performed By: #### 1 [id number] #### [facility] Default [address] [place] [address] Office Visit (Pediatric Neur ology)on 05-30-2021 Follow-up [...] updates. My nurse is Yolanda Calvillo at [phone]. 8. 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 She has also been diagnosed IGA [...] Vitals V (more content not included)... Normal [facility] [employer] CHEMISTRYOrdered By: SYSTEM SYSTEM on 05-17-2021 Anion [...] rate/Area] mL/min/1.73 m2 Normal >=59mL/min/ 1.73 m2 [facility] Chem S Glucose [Mass/Vol] 152 mg/dL Normal [...] PM) Normal Negative [facility] UA Auto SS [place].plasma/[place]. RBC (Bld) [Mass ratio] >75 /HPF Invalid [...] [facility] UA Auto SS Urobilinogen Qn (U) [id number] {Deny'U}/dL Normal 0.0 - 1.0 EU/dL [facility] UA Auto SS WBC Auto Ql (U) Negative (05/17/21 9:31 PM) Normal Negative [facility] UA Auto SS WBC LM.HPF (Urine sed) [#/Area] 0-5 /HPF Normal 0-5/HPF [facility] UA Auto SS Q - Diptheria/Tetanus Abon 0 04-13-2021 DIPHTHERIA ANTITOXOID 0.59 IU/mL Normal [facility] Comment on above: Order Comment: [facility] performed at: WILL, [facility], [address], [place], [place], , [employer] Circuit Board Layout Designer: Gurmeet Rabago M.D.,PhD [facility] Date/Time: [facility] [...] analytical performance characteristics have been determined by [employer] [place]. It has not been cleared or approved by the U.S. Food and Drug Administration. This assay has been validated pursuant to the CLIA regulations and is used for clinical purposes. Performed By: #### 1 [id number], 09782A, 66269A, 51276C, 96418V, 05766K, 10715 #### [facility] Default [address] [place] [address] TETANUS ANTITOXOID 0.71 IU/mL Normal [facility] [place] [facility] Comment on above: Order Comment: [facility] performed at: [facility], [facility], [address], [place], [place], , Printed Circuit Board Layout Designer: Gurmeet Rabago M.D.,PhD [facility] Date/Time: [facility] [...] analytical performance characteristics have been determined by [facility] [place]. It has not been cleared or approved by the U.S. Food and Drug Administration. This assay has been validated pursuant to the CLIA regulations and is used for clinical purposes. Performed By: #### 1 [id number], 39476C, 42385R, 77017D, 03072Q, 46204S, 74191 #### [facility] Default [address] [place] [address] Q - HIV AB, HIV 1/2, EIAon 0 04-13-2021 HIV AG/AB, 4TH GEN Non-Reactive Normal NON-REACT IV E [facility] Comment on above: Order Comment: [facility] Testing performed at: [employer], [facility] [address], [address] [place] [address], [address] [place] [address], [address], [employer]ed Circuit Board Layout Designer: David Mancilla MD [facility] Collection Date/Time: [facility] [...] purpose. For additional information please refer to http://education.PaymentOne.LapSpace/faq/YWJ057 (This link is being provided for informational/ educational purposes only.) The performance of this assay has not been clinically validated in patients less than 2 years old. Performed By: #### 1 [id number], 11372F, 61406I, 95262L, 10660V, 99025I, 39436 #### [facility] Default [address] [place] [address] Q - IGA,SERUMon 04-13-2021 IMMUNOGLOBULIN A 58 mg/dL Normal 47-310 [facility] Comment on above: Order Comment: [facility] performed at: [facility], [facility], [address] [facility], [address] [place] [address], [address] [place] [address], [employer] Board Layout Designer: David Mancilla MD [facility] Date/Time: [facility] Results Received Date/Time: [facility] Reported Date/Time: Performed By: #### 1 [id number], 73870X, 99983I, 76746J, 17779R, 72134A, 81311 #### [facility] Default [address] [place] [address] Q - IGE,SERUMon 04-13-2021 IMMUNOGLOBULIN E 7 kU/L Normal [facility] Specialist Comment on above: Order Comment: [facility] Testing performed at: [facility], [facility], [address] [place] [address], [address] [place] [address], [address] [place] [address], Printed Circuit Board Layout Designer: David Mancilla MD [facility] Collection Date/Time: [facility] Results Received Date/Time: [facility] Reported Date/Time: Performed By: #### 1 6963X, 78455B, 49037T, 14400N, 58762M, 21454O, 68277 #### [facility] Default [address] [place] [address] Q - IGG,SERUMon 04-13-2021 IMMUNOGLOBULIN G 912 mg/dL Normal 600-1640 [facility] Comment on above: Order Comment: [facility] Testing performed at: [facility], [facility] [address] [facility], [address] [place] [address], [address] [place] [address], [address] [place] [address], [employer] Layout Designer: David aMncilla MD [facility] Collection Date/Time: [facility] Results Received Date/Time: [facility] Reported Date/Time: Performed By: #### 1 6963X, 41422N, 74132M, 07135A, 77099V, 34241F, 88782 #### [facility] Default [address] [place] [address] Q - IGM,SERUMon 04-13-2021 IMMUNOGLOBULIN M 73 mg/dL Normal 50-300 [facility] Comment on above: Order Comment: [facility] Testing performed at: [facility], [facility] [address], [address], 4 [facility], [place], [address], [employer] Circuit Board Layout Designer: David Mancilla MD [facility] Collection Date/Time: [facility] Results Received Date/Time: [facility] Reported Date/Time: Performed By: #### 1 6963X, 87070M, 39661I, 37631J, 41831W, 78260V, 13766 #### [facility] [address] [place] [address] Q - Strep pneumo Ab 23 serot ypeson 04-13-2021 SEROTYPE 1 (1) 0.8 Normal [facility] Comment on above: Order Comment: [facility] Testing performed at: [facility], [facility],, [address] [place], [place], , [employer] Board Layout Designer: Angela Feng MD,PhD,MANOHAR [facility] Collection Date/Time: [facility] Results Received Date/Time: [facility] Reported Date/Time: Performed By: #### 1 6963X, 18783U, 84005W, 27557S, 38261Y, 49873N, 13724 #### [facility] Default [address] [place] [address] SEROTYPE 12 (12F) <0.3 Normal [facility] Specialist Comment on above: Order Comment: [facility] Testing performed at: [facility], [facility],, [address] [place], [place], , [employer] Board Layout Designer: Angela Feng MD,PhD,MANOHAR [facility] Collection Date/Time: [facility] Results Received Date/Time: [facility] Reported Date/Time: Performed By: #### 1 6963X, 05818W, 41113A, 60451X, 55625S, 06245N, 31582 #### [facility] Default [address] [place] [address] SEROTYPE 14 (14) 1.1 Normal [facility] Comment on above: Order Comment: [facility] Testing performed at: [facility], [facility],, [address] [place], [place], , [employer] Layout Designer: Angela Feng MD,PhD,MANOHAR [facility] Collection Date/Time: [facility] Results Received Date/Time: [facility] Reported Date/Time: Performed By: #### 1 6963X, 12749F, 17641J, 41780H, 90991P, 10619L, 60735 #### [facility] Default [address] [place] [address] SEROTYPE 17 (17F) 1.9 Normal [facility] Comment on above: Order Comment: [facility] Testing performed at: [facility], [facility],, [address] [place], [place], , [employer] Layout Designer: Angela Feng MD,PhD,MANOHAR [facility] Collection Date/Time: [facility] Results Received Date/Time: [facility] Reported Date/Time: Performed By: #### 1 6963X, 28062J, 83450A, 92630W, 71929D, 65365U, 88668 #### [facility] Default [address] [place] [address] SEROTYPE 19 (19F) 2.3 [facility] Comment on above: Order Comment: [facility] Testing performed at: [facility], [facility],, [address] [place] [address], , [employer] Layout Designer: Angela Feng MD,PhD,MANOHAR [facility] Collection Date/Time: [facility] Results Received Date/Time: [id number] [facility] Reported Date/Time: Performed By: #### 1 6963X, 08520S, 12633M, 57216C, 53287S, 33956P, 95032 #### [facility] Default [address] [place] [address] SEROTYPE 2 (2) <0.3 Normal [facility] Comment on above: Order Comment: [facility] Testing performed at: [facility], [facility],, [address] [place] [address], , [employer] Circuit [employer] Layout Designer: Angela Feng MD,PhD,MANOHAR [facility] Collection Date/Time: [facility] Results Received Date/Time: [facility] Reported Date/Time: Performed By: #### 1 6963X, 94653V, 11867J, 95201S, 75884H, 46129Q, 56373 #### [facility] Default [address] [place] [address] SEROTYPE 20 (20) 1.0 [facility] Comment on above: Order Comment: [facility] Testing performed at: [facility], [facility],, [address] [place] [address], , [employer] Layout Designer: Angela Feng MD,PhD,MANOHAR [facility] Collection Date/Time: [facility] Results Received Date/Time: [facility] Reported Date/Time: Performed By: #### 1 6963X, 03547F, 09610Y, 96411A, 55248W, 87891M, 75959 #### [facility] Default [address] [place] [address] SEROTYPE 22 (22F) <0.3 Normal [facility] Comment on above: Order Comment: [facility] Testing performed at: [facility], [facility],, [address] [place] [address], , [employer] Layout Designer: Angela Feng MD,PhD,MANOHAR [facility] Collection Date/Time: [facility] Results Received Date/Time: [facility] Reported Date/Time: Performed By: #### 1 6963X, 21186U, 75395Y, 07789P, 42728W, 82090J, 11693 #### [facility] Default [address] [place] [address] SEROTYPE 23 (23F) 3.6 Normal [facility] Comment on above: Order Comment: [facility] Testing performed at: [facility], [facility],, [address] [place] [address], , [employer] Layout Designer: Angela Feng MD,PhD,MANOHAR [facility] Collection Date/Time: [facility] Results Received Date/Time: [facility] Reported Date/Time: Performed By: #### 1 6963X, 60717N, 27580B, 05332A, 40624W, 21150B, 45958 #### [facility] Default [address] [place] [address] SEROTYPE 26 (6B) 4.5 Normal [facility] Comment on above: Order Comment: [facility] Testing performed at: [facility], [facility],, [address] [place] [address], , [employer] Layout Designer: Angela Feng MD,PhD,MANOHAR [facility] Collection Date/Time: [facility] Results Received Date/Time: [facility] Reported Date/Time: Performed By: #### 1 6963X, 92962B, 57599V, 64103C, 40329P, 52117Z, 17748 #### [facility] Default [address] [place] [address] SEROTYPE 3 (3) 1.[address] [facility] Specialist Comment on above: Order Comment: [facility] Testing performed at: [facility], [facility],, [address] [place] [address], , [employer] Layout Designer: Angela Feng MD,PhD,MANOHAR [facility] Collection Date/Time: [facility] Results Received Date/Time: [facility] Reported Date/Time: Performed By: #### 1 6963X, 40099M, 34085G, 15604G, 30448S, 03122I, 20440 #### [facility] Default [address] [place] [address] SEROTYPE 34 (10A) 1.6 Normal [facility] Comment on above: Order Comment: [facility] Testing performed at: [facility], [facility],, [address] [place] [address], , [employer] Layout Designer: Angela Feng MD,PhD,MANOHAR [facility] Collection Date/Time: [facility] Results Received Date/Time: [facility] Reported Date/Time: Performed By: #### 1 6963X, 68547F, 44459V, 59408F, 97935B, 61864K, 51588 #### [facility] Default [address] [place] [address] SEROTYPE 4 (4) 0.[address] [facility] Specialist Comment on above: Order Comment: [facility] Testing performed at: [facility], [facility],, [address] [place] [address], , [employer] Layout Designer: Angela Feng MD,PhD,MANOHAR [facility] Collection Date/Time: [facility] Results Received Date/Time: [facility] Reported Date/Time: Performed By: #### 1 6963X, 62979S, 83450T, 35222E, 21562D, 16475U, 19059 #### [facility] Default [address] [place] [address] SEROTYPE 43 (11A) 0.9 Normal [facility] Comment on above: Order Comment: [facility] Testing performed at: [facility], [facility],, [address] [place] [address], , [employer] Circuit Board Layout Designer: Angela eFng MD,PhD,MANOHAR [facility] Collection Date/Time: [facility] Results Received Date/Time: [facility] Reported Date/Time: Performed By: #### 1 6963X, 73349M, 46392I, 20359Y, 57410V, 05401V, 80824 #### [facility] Default [address] [place] [address] SEROTYPE 5 (5) 0.[address] [facility] Specialist Comment on above: Order Comment: [facility] Testing performed at: [facility], [facility],, [address] [place] [address], , [employer] Circuit Board Layout Designer: Angela Feng MD,PhD,MANOHAR [facility] Collection Date/Time: [facility] Results Received Date/Time: [facility] Reported Date/Time: Performed By: #### 1 6963X, 36803V, 28869R, 64110Q, 22515G, 43024Y, 87691 #### [facility] Default [address] [place] [address] SEROTYPE 51 (7F) 0.4 Normal [facility] Comment on above: Order Comment: [facility] Testing performed at: [facility], [facility],, [address] [place], [place], , Printed Circuit Board Layout Designer: Angela Feng MD,PhD,MANOHAR [facility] Collection Date/Time: [facility] Results Received Date/Time: [facility] Reported Date/Time: Performed By: #### 1 6963X, 84061W, 52769A, 81472K, 47959D, 23857T, 14513 #### [facility] Default [address] [place] [address] SEROTYPE 54 (15B) <0.3 [facility] Comment on above: Order Comment: [facility] Testing performed at: [facility], [facility],, [address] [place], [place], , Printed Circuit Board Layout Designer: Angela Feng MD,PhD,MANOHAR [facility] Collection Date/Time: [facility] Results Received Date/Time: [facility] Reported Date/Time: Performed By: #### 1 6963X, 92875A, 35221I, 79482H, 45883J, 29612Q, 31181 #### [facility] Default [address] [place] [address] SEROTYPE 56 (18C) 1.1 Normal [facility] Comment on above: Order Comment: [facility] Testing performed at: [facility], [facility],, [address] [place], [place], , Printed Circuit Board Layout Designer: Angela Feng MD,PhD,MANOHAR [facility] Collection Date/Time: [facility] Results Received Date/Time: [facility] Reported Date/Time: Performed By: #### 1 6963X, 13868J, 05679W, 74385Q, 93569L, 21885V, 75145 #### [facility] Default [address] [place] [address] SEROTYPE 57 (19A) 0.4 [facility] Comment on above: Order Comment: [facility] Testing performed at: [facility], [facility],, [address] [place], [place], , Printed Circuit Board Layout Designer: Angela Feng MD,PhD,MANOHAR [facility] Collection Date/Time: [facility] Results Received Date/Time: [facility] Reported Date/Time: Performed By: #### 1 6963X, 75447W, 26186X, 33930G, 29844L, 30297X, 90685 #### [facility] Default [address] [place] [address] SEROTYPE 68 (9V) 0.5 Normal [facility] Comment on above: Order Comment: Quest Testing performed at: [facility],, [address] [place] [address], , Printed Circuit Board Layout Designer: Angela Feng MD,PhD,MANOHAR Quest Collection Date/Time: [facility] Results Received Date/Time: [facility] Reported Date/Time: Performed By: #### 1 6963X, 83861Q, 13017V, 35791Q, 01397R, 57906V, 41734 #### [facility] Default [address] [place] [address] SEROTYPE 70 (33F) 0.3 Normal [facility] Comment on above: Order Comment: [facility] Testing performed at: [facility],, [address] [place] [address], , [employer] Circuit Board Layout Designer: Angela Feng MD,PhD,MANOHAR Quest Collection Date/Time: Quest [...] serotype-specific titers may have less robust responses. [facility] uses a multi-analyte immunodetection (MAID) method. The method employs the Get-n-Post flow cytometric system which measures multiple analytes [...] analytical performance characteristics have been determined by [facility]. It has not been cleared or approved by FDA. This assay has been validated pursuant to the CLIA regulations and used for clinical purposes. For additional information, please refer to http://education.[employer]/faq/ZQZ862 (This link is being provided for informational/ educational purposes only.) Performed By: #### 1 6963X, 83074W, 04939Q, 96418E, 37460P, 86653Z, 78188 #### [facility] Default [address] [place] [address] SEROTYPE 8 (8) 0.3 Normal [facility] Comment on above: Order Comment: [facility] Testing performed at: , [facility],, [address] [place] [address], [address], Printed Circuit Board Layout Designer: Angela Feng MD,PhD,MANOHAR Quest Collection Date/Time: [facility] Results Received Date/Time: [facility] Reported Date/Time: Performed By: #### 1 6963X, 03755R, 56684J, 61036H, 16773Z, 16304D, 52241 #### [facility] Default [address] [place] [address] SEROTYPE 9 (9N) <0.3 Normal [facility] Comment on above: Order Comment: [facility] Testing performed at: [facility], [facility],, [address] [place], [address], Printed Circuit Board Layout Designer: Angela Feng MD,PhD,MANOHAR Quest Collection Date/Time: [facility] Results Received Date/Time: [facility] Reported Date/Time: Performed By: #### 1 6963X, 44602R, 00381Y, 52768B, 54211A, 87464H, 48875 #### [facility] Default [address] [place] [address] Chart Updateon 04-12-2021 Chart Update Chart Update Shiv had a migraine today and was unable to attend class. Signatures Electronically signed by : Chica Whitmore, MEDICAL SECRETARY RECEPTIONIST-PLUG PASTER MEDICAL SECRETARY RECEPTIONIST-EMR TRAINER; Apr 12 2021 3:16PM EST (Author) Normal [facility] COVID + FLU Quick Testingon 04-04-2021 SARS-CoV-2 (COVID-19) RNA PAMELA+probe Ql (Unsp spec) Negative [facility] Other COVID + FLU Quick Testing Negative [facility] Other Office Visit (Pediatric Neur ology)on 03-22-2021 Follow-up visit Diagnoses/Problems Migraine (346.90) (G43.909) Anxiety (300.00) (F41.9) Orders Migraine Start: Verapamil HCl - 40 MG Oral Tablet; TAKE 1 TABLET 3 times daily MRI Brain without Contrast; Status:Hold For - Scheduling; Requested for:[id number]; Does patient have exposure to metal fragments? : N Radiologist to Determine Optimal Study : Y Requesting physician's phone/pager number? : [phone] Does the patient have a Cochlear Implant, Pacemaker, Defibrilator, Pacing Wire, Brain Aneurysm Clip, Implanted Nerve or Bone Graft Simulator, Implanted Breast Tissue [employer] Sales Consultant, Glucose Monitor, or Neulasta Device? : No [...] updates. My nurse is Yolanda Calvillo at [phone]. 8. Follow up in 2-3 months with [...] at headach (more content not included)... Normal [facility] XR Abdomen Single View (KUB) *on [...] by Butch Sanchez on 03/08/2021 194 Normal [facility] COVID Quick Testingon 2021 Result Negative [facility] Other COVID Quick Testingon 2020 Result Negative [facility] Other COVID Quick Testingon 2020 Result Negative [facility] Other Quick Strepon 11-19-2020 S. pyogenes Org specific cx Ql (Throat) Negative [facility] Other Quick Strep [facility] Other CNTHERAPYon 11-13-2020 CNTHER[facility] SHIV EVANGELISTA ([id number]) 2 F Date Time Provider Department 11/13/20 10:45 AM [facility] Provider Department Center 11/13/2020 10:45 AM [id number], MEGAN [facility] Reason for Visit: [...] 2 tablets by mouth twice daily. Normal [facility] CNTHERAPYon 11-09-2020 CNTHERAPY OT/PT/Speech Visit ([facility]) SHIV EVANGELISTA ([id number]) 2 F Date Time Provider Department 11/09/20 11:30 AM ALEXANDRA SUAREZ Date Time Provider Department Center 11/09/2020 11:30 AM [id number] SUAREZdg Reason for Visit: PT Eval [747] Primary [...] Planned: 8 Planned Treatment Interventions: Therapeutic exercise (04706);Neuromuscula r re-education (18786);Manual therapy (70715);Therapeutic activities (24650);Self-usp management (61390);Patient/Fami ly/Caregiver Education;Biofeedbac k Pelvic (41066,51517) PLAN FOR NEXT VISIT: toileting positions, colon [...] Family Intake Information: Prescription present Previous Treatment: [facility] [employer]ier (more content not included)... Normal [facility] Office Visit (Pediatric Neur ology)on [...] updates. My nurse is Yolanda Calvillo at [phone]. 8. Follow up in 2-3 months with updates in the interim. Chief Complaint Follow up POTS Accompanied by mother. History of Present Illness Shiv is a 20 year old young woman with POTS, anxiety and headaches. She is taking 2 summer courses. [facility] and is taking her courses through [...] holidays as well. She still works at [employer]. She denies any thoughts about hurting herself [...] tablet by mouth AT ONSET OF HEADACHE Reecee 3 MG Oral Tablet Zelnorm 6 MG Oral Tablet Vitals Vital Signs Recorded: [id number] 01:02PM Kttupa703 lb 7.31 oz 2-20 Weight Ifuizgkgfn03 % Physical Exam Constitutional - Well dressed, [...] bilaterally. Fundoscopi (more content not included)... Normal [facility] Psychiatry Adult No report was sent Normal [facility] Provider Orderson 01-17-2020 Provider Orders [id number] Normal [facility] Vital Signs Date Time Vital Sign Value Performing Clinician Facility 04-29-2024 17:05-0400 Body height 157.48 cm Ok Tyson DO Work Phone: [facility] 04-29-2024 17:05-0400 Body weight 72.57 kg Ok Tyson DO Work Phone: [facility] 04-29-2024 16:56-0400 Body temperature 97.3 [degF] Ok Tyson DO Work Phone: [facility] 04-29-2024 16:56-0400 Diastolic blood pressure 74 mm[Hg] Ok Tyson DO Work Phone: [facility] 04-29-2024 16:56-0400 Heart rate 91 /min Ok Tyson DO Work Phone: [facility] 04-29-2024 16:56-0400 Respiratory rate 16 /min Ok Tyson DO Work Phone: [facility] 04-29-2024 16:56-0400 Systolic blood pressure 122 mm[Hg] Ok Goodenk DO Work Phone: [facility] 04-29-2024 16:55-0400 SaO2% (BldA) [Mass fraction] 97 % Ok Tyson DO Work Phone: [facility] 04-22-2024 15:19-0400 Body mass index (BMI) [Ratio] 29.41 kg/m2 Linda [place] PA Work Phone: [facility] 04-22-2024 15:19-0400 Body weight 72.94 kg Linda [place] PA Work Phone: [facility] 04-22-2024 15:19-0400 Diastolic blood pressure 60 mm[Hg] Linda Yesica PA Work Phone: [facility] 04-22-2024 15:19-0400 Systolic blood pressure 120 mm[Hg] Linda Yesica PA Work Phone: [facility] 04-08-2024 15:36-0500 Body mass index (BMI) [Ratio] 28.37 kg/m2 Linda Yesica PA Work Phone: [facility] 04-08-2024 15:36-0500 Body weight 70.36 kg Linda [place] PA Work Phone: [facility] 04-08-2024 15:36-0500 Diastolic blood pressure 68 mm[Hg] Linda [place] PA Work Phone: [facility] 04-08-2024 15:36-0500 Systolic blood pressure 126 mm[Hg] Linda [place] PA Work Phone: [facility] 03-25-2024 16:03-0500 Body mass index (BMI) [Ratio] 28.17 kg/m2 Linda Yesica PA Work Phone: [facility] 03-25-2024 16:03-0500 Body weight 69.85 kg Linda [place] PA Work Phone: [facility] 03-25-2024 16:03-0500 Diastolic blood pressure 68 mm[Hg] Linda MITCHELL Work Phone: [facility] 03-25-2024 16:03-0500 Systolic blood pressure 116 mm[Hg] Linda MITCHELL Work Phone: [facility] 03-25-2024 10:13-0500 Diastolic blood pressure 67 mm[Hg] Ok Vaschak DO Work Phone: [facility] 03-25-2024 10:13-0500 Heart rate 83 /min Ok Charleschak DO Work Phone: [facility] 03-25-2024 10:13-0500 Respiratory rate 18 /min Ok Charlesbeatrizk DO Work Phone: [facility] 03-25-2024 10:13-0500 SaO2% (BldA) [Mass fraction] 96 % Ok Vaschak DO Work Phone: [facility] 03-25-2024 10:13-0500 Systolic blood pressure 118 mm[Hg] Ok Vaschak DO Work Phone: [facility] 03-25-2024 08:39-0500 Body height 157.48 cm Ok Charleschak DO Work Phone: [facility] 03-25-2024 08:39-0500 Body temperature 98.2 [degF] Ok Vaschak DO Work Phone: [facility] 03-25-2024 08:39-0500 Body weight 70 kg Ok Charleschak DO Work Phone: [facility] 03-25-2024 08:39-0500 Diastolic blood pressure 58 mm[Hg] Ok Vaschak DO Work Phone: [facility] 03-25-2024 08:39-0500 Heart rate 80 /min Ok Vaschak DO Work Phone: [facility] 03-25-2024 08:39-0500 Respiratory rate 16 /min Ok Tyson DO Work Phone: [facility] 03-25-2024 08:39-0500 SaO2% (BldA) [Mass fraction] 98 % Ok Tyson DO Work Phone: [facility] 03-25-2024 08:39-0500 Systolic blood pressure 122 mm[Hg] Ok Tyson DO Work Phone: [facility] 03-11-2024 10:34-0500 Body mass index (BMI) [Ratio] 27.33 kg/m2 Navid Alondra DO Work Phone: [facility] 03-11-2024 10:34-0500 Body weight 67.77 kg Navid Alondra DO Work Phone: [facility] 03-11-2024 10:34-0500 Diastolic blood pressure 68 mm[Hg] Navid Alondra DO Work Phone: [facility] 03-11-2024 10:34-0500 Systolic blood pressure 122 mm[Hg] Navid Alondra DO Work Phone: [facility] 02-25-2024 15:37-0500 Body mass index (BMI) [Ratio] 27.09 kg/m2 Navid Alondra DO Work Phone: [facility] 02-25-2024 15:37-0500 Body weight 67.19 kg Navid Alondra DO Work Phone: [facility] 02-25-2024 15:37-0500 Diastolic blood pressure 66 mm[Hg] Navid Alondra DO Work Phone: [facility] 02-25-2024 15:37-0500 Systolic blood pressure 114 mm[Hg] Navid Alondra DO Work Phone: [facility] 02-09-2024 16:38-0500 Diastolic blood pressure 60 mm[Hg] Rahel Molina OSTOMY CARE NURSE Work Phone: [facility] 02-09-2024 16:38-0500 Heart rate 78 /min Rahel Fuentesion OSTOMY CARE NURSE Work Phone: [facility] 02-09-2024 16:38-0500 Respiratory rate 16 /min Rahel Didion OSTOMY CARE NURSE Work Phone: [facility] 02-09-2024 16:38-0500 SaO2% (BldA) [Mass fraction] 98 % Rahel Fuentesion OSTOMY CARE NURSE Work Phone: [facility] 02-09-2024 16:38-0500 Systolic blood pressure 118 mm[Hg] Rahel Fuentesion OSTOMY CARE NURSE Work Phone: [facility] 01-22-2024 16:40-0500 Body mass index (BMI) [Ratio] 26.48 kg/m2 Linda Yesica PA Work Phone: [facility] 01-22-2024 16:40-0500 Body weight 65.68 kg Linda Yesica PA Work Phone: [facility] 01-22-2024 16:40-0500 Diastolic blood pressure 60 mm[Hg] Linda Yesica PA Work Phone: [facility] 01-22-2024 16:40-0500 Systolic blood pressure 118 mm[Hg] Linda [place] PA Work Phone: [facility] 01-12-2024 15:14-0500 Body height 157.5 cm Ok Goodenk DO Work Phone: [facility] 01-12-2024 15:14-0500 Body mass index (BMI) [Ratio] 25.61 kg/m2 Ok Vaschak DO Work Phone: [facility] 01-12-2024 15:14-0500 Body weight 63.5 kg Ok Goodenk DO Work Phone: [facility] 01-12-2024 15:14-0500 Diastolic blood pressure 60 mm[Hg] Ok Giacomok DO Work Phone: [facility] 01-12-2024 15:14-0500 Heart rate 87 /min Ok Tyson DO Work Phone: [facility] 01-12-2024 15:14-0500 SaO2% (BldA) [Mass fraction] 99 % Ok Tyson DO Work Phone: [facility] 01-12-2024 15:14-0500 Systolic blood pressure 114 mm[Hg] Ok Tyosn DO Work Phone: [facility] 01-02-2024 17:15-0500 Body mass index (BMI) [Ratio] 25.24 kg/m2 Yaritza Gonzalez OSTOMY CARE NURSE Work Phone: [facility] 01-02-2024 17:15-0500 Body temperature 98.01 [degF] Yaritza Gonzalez OSTOMY CARE NURSE Work Phone: [facility] 01-02-2024 17:15-0500 Body weight 62.6 kg Yaritza Gonzlaez OSTOMY CARE NURSE Work Phone: [facility] 01-02-2024 17:15-0500 Heart rate 100 /min Yaritza Gonzalez OSTOMY CARE NURSE Work Phone: [facility] 01-02-2024 17:15-0500 SaO2% (BldA) [Mass fraction] 99 % Yaritza Gonzalez OSTOMY CARE NURSE Work Phone: [facility] 12-24-2023 15:56-0500 Body mass index (BMI) [Ratio] 25.13 kg/m2 Navid Alondra DO Work Phone: [facility] 12-24-2023 15:56-0500 Body weight 62.32 kg Navid Alondra DO Work Phone: [facility] 12-24-2023 15:56-0500 Diastolic blood pressure 74 mm[Hg] Navid Alondra DO Work Phone: [facility] 12-24-2023 15:56-0500 Systolic blood pressure 116 mm[Hg] Navid Alondra DO Work Phone: [facility] 12-24-2023 13:55-0500 Body mass index (BMI) [Ratio] 25.28 kg/m2 Suzan Darnell OSTOMY CARE NURSE Work Phone: [facility] 12-24-2023 13:55-0500 Body temperature 98.71 [degF] Suzan Retanaanderson OSTOMY CARE NURSE Work Phone: [facility] 12-24-2023 13:55-0500 Body weight 62.7 kg Suzan Retanaanderson OSTOMY CARE NURSE Work Phone: [facility] 12-24-2023 13:55-0500 Diastolic blood pressure 62 mm[Hg] Suzan Darnell OSTOMY CARE NURSE Work Phone: [facility] 12-24-2023 13:55-0500 Heart rate 96 /min Suzan Retanaanderson OSTOMY CARE NURSE Work Phone: [facility] 12-24-2023 13:55-0500 SaO2% (BldA) [Mass fraction] 97 % Suzan Quinonesradha OSTOMY CARE NURSE Work Phone: [facility] 12-24-2023 13:55-0500 Systolic blood pressure 118 mm[Hg] Suzan Quinonesradha OSTOMY CARE NURSE Work Phone: [facility] 11-25-2023 14:49-0400 Body mass index (BMI) [Ratio] 25.15 kg/m2 Navid Alondra DO Work Phone: [facility] 11-25-2023 14:49-0400 Body weight 62.37 kg Navid Alondra DO Work Phone: [facility] 11-25-2023 14:49-0400 Diastolic blood pressure 68 mm[Hg] Navid Alondra DO Work Phone: [facility] 11-25-2023 14:49-0400 Systolic blood pressure 118 mm[Hg] Navid Alondra DO Work Phone: [facility] 10-23-2023 15:19-0400 Body mass index (BMI) [Ratio] 24.4 kg/m2 Nom Nurse [facility] 10-23-2023 15:19-0400 Body weight 60.[address] [facility] Nurse [facility] 10-23-2023 15:19-0400 Diastolic blood pressure 70 mm[Hg] Noms Nurse [facility] 10-23-2023 15:19-0400 Systolic blood pressure 120 mm[Hg] Noms Nurse [facility] 07-04-2023 10:15-0400 Body height 157.48 cm DO Ok Vaschak Work Phone: [facility] 07-04-2023 10:15-0400 Body mass index (BMI) [Ratio] 23.8 kg/m2 DO Ok Vaschak Work Phone: [facility] 07-04-2023 10:15-0400 Body weight 58.96 kg DO Ok Vaschak Work Phone: [facility] 07-04-2023 10:15-0400 Diastolic blood pressure 70 mm[Hg] DO Ok Vaschak Work Phone: [facility] 07-04-2023 10:15-0400 Heart rate 72 /min DO Ok Vaschak Work Phone: [facility] 07-04-2023 10:15-0400 Respiratory rate 18 /min DO Ok Vaschak Work Phone: [facility] 07-04-2023 10:15-0400 SaO2% (BldA) [Mass fraction] 98 % DO Ok Vaschak Work Phone: [facility] 07-04-2023 10:15-0400 Systolic blood pressure 124 mm[Hg] DO Ok Vaschak Work Phone: [facility] 09-20-2022 08:00-0400 Body temperature 97.9 [degF] DO Ok Vaschak Work Phone: [facility] 09-20-2022 08:00-0400 Diastolic blood pressure 74 mm[Hg] DO Ok Vaschak Work Phone: [facility] 09-20-2022 08:00-0400 Heart rate 73 /min DO Ok Vaschak Work Phone: [facility] 09-20-2022 08:00-0400 Respiratory rate 18 /min DO Ok Vaschak Work Phone: [facility] 09-20-2022 08:00-0400 SaO2% (BldA) [Mass fraction] 98 % DO Ok Vaschak Work Phone: [facility] 09-20-2022 08:00-0400 Systolic blood pressure 118 mm[Hg] DO Ok Vaschak Work Phone: [facility] 09-18-2022 08:29-0400 Body height 157.48 cm DO Ok Vaschak Work Phone: [facility] 09-18-2022 08:29-0400 Body weight 72.57 kg DO Ok Vaschak Work Phone: [facility] 08-10-2022 17:06-0400 Diastolic blood pressure 78 mm[Hg] DO Ok Vaschak Work Phone: [facility] 08-10-2022 17:06-0400 Heart rate 105 /min DO Ok Vaschak Work Phone: [facility] 08-10-2022 17:06-0400 Systolic blood pressure 133 mm[Hg] DO Ok Vaschak Work Phone: [facility] 08-10-2022 17:00-0400 Respiratory rate 16 /min DO Ok Charleschak Work Phone: [facility] 08-10-2022 16:38-0400 SaO2% (BldA) [Mass fraction] 98 % DO Ok Vaschak Work Phone: [facility] 11-25-2021 23:45-0400 Diastolic blood pressure 71 mm[Hg] Rayray Kenia [facility] 11-25-2021 23:45-0400 Heart rate 77 /min Rayray Kenia [facility] 11-25-2021 23:45-0400 Hourly Rounding Rayray Kenia [facility] 11-25-2021 23:45-0400 Respiratory rate 18 /min Rayray Kenia [facility] 11-25-2021 23:45-0400 SaO2% (BldA) [Mass fraction] 100 % Rayray Kenia [facility] 11-25-2021 23:45-0400 Systolic blood pressure 105 mm[Hg] Rayray Kenia [facility] 11-25-2021 22:00-0400 Diastolic blood pressure 83 mm[Hg] Rayray Kenia [facility] 11-25-2021 22:00-0400 Heart rate 69 /min Rayray Kenia [facility] 11-25-2021 22:00-0400 Hourly Rounding Rayray Kenia [facility] 11-25-2021 22:00-0400 Respiratory rate 14 /min Rayray Kenia [facility] 11-25-2021 22:00-0400 Systolic blood pressure 123 mm[Hg] Rayray Kenia [facility] 11-25-2021 19:00-0400 Body temperature 98.42 [degF] Rayray Kenia [facility] 11-25-2021 19:00-0400 Diastolic blood pressure 81 mm[Hg] Rayrya Kenia [facility] 11-25-2021 19:00-0400 Heart rate 79 /min Rayray Kenia [facility] 11-25-2021 19:00-0400 Hourly Rounding Rayray Kenia [facility] 11-25-2021 19:00-0400 Respiratory rate 12 /min Rayray Aquino [facility] 05-30-2021 12:44-0400 Body height 160 cm Terence Pyle Work Phone: VK-Twiqmhjtd-Mjigglj y H DO Work Phone: 05-30-2021 12:44-0400 Body mass index (BMI) [Ratio] 19.65 kg/m2 Terence Pyle Work Phone: RW-Hwcikuwzs-Lirkeqv y H DO Work Phone: 05-30-2021 12:44-0400 Body surface area Derived from formula 1.5 m2 Terence Pyle Work Phone: PE-Yebjeiqgn-Fewrtch y H DO Work Phone: 05-30-2021 12:44-0400 Body temperature 98.5 [degF] Terence Pyle Work Phone: NU-Rzlbcjrbk-Ahchfky y H DO Work Phone: 05-30-2021 12:44-0400 Body weight 50.3 kg Terence Pyle Work Phone: OG-Ivcdtdwhd-Euntxlz y H DO Work Phone: 05-30-2021 12:44-0400 Diastolic blood pressure 74 mm[Hg] Terence Pyle Work Phone: WL-Wtfhwprkj-Xkpetow y H DO Work Phone: 05-30-2021 12:44-0400 Heart rate 74 /min Terence Pyle Work Phone: VP-Capnhzwoe-Lkojmaw y H DO Work Phone: 05-30-2021 12:44-0400 Systolic blood pressure 120 mm[Hg] Terence Pyle Work Phone: SA-Suoeqmaoo-Abauoca y H DO Work Phone: 05-17-2021 23:00-0400 Diastolic blood pressure 61 mm[Hg] [facility] 05-17-2021 23:00-0400 Heart rate 81 /min [facility] 05-17-2021 23:00-0400 SaO2% (BldA) [Mass fraction] 97 % [facility] 05-17-2021 23:00-0400 Systolic blood pressure 106 mm[Hg] [facility] 05-17-2021 20:48-0400 Body temperature 98.6 [degF] [facility] 05-17-2021 20:48-0400 Diastolic blood pressure 83 mm[Hg] [facility] 05-17-2021 20:48-0400 Heart rate 97 /min [facility] 05-17-2021 20:48-0400 Respiratory rate 16 /min [facility] 05-17-2021 20:48-0400 SaO2% (BldA) [Mass fraction] 98 % [facility] 05-17-2021 20:48-0400 Systolic blood pressure 128 mm[Hg] [facility] 04-04-2021 14:45-0500 Body height 157.48 cm Albert White Other [facility] Other 04-04-2021 14:45-0500 Body mass index (BMI) [Ratio] 20.3 kg/m2 Albert White Other [facility] Other 04-04-2021 14:45-0500 Body temperature 100 [degF] Albert White Other [facility] Other 04-04-2021 14:45-0500 Body weight 50.35 kg Albert White Other [facility] Other 04-04-2021 14:45-0500 Respiratory rate 16 /min Albert White Other [facility] Other 04-04-2021 14:45-0500 SaO2% (BldA) [Mass fraction] 99 % Albert White Other [facility] Other 2021 10:00-0500 Body height 157.48 cm Pankaj Berger Other [facility] Other 2021 10:00-0500 Body mass index (BMI) [Ratio] 20.3 kg/m2 Pankaj Berger Other [facility] Other 2021 10:00-0500 Body weight 50.35 kg Pankaj Berger Other [facility] Other 2021 10:00-0500 Diastolic blood pressure 67 mm[Hg] Pankaj Berger Other [facility] Other 2021 10:00-0500 Systolic blood pressure 108 mm[Hg] Pankaj Berger Other [facility] Other 12-13-2020 13:10-0400 Body height 157.48 cm Chacho Domingo Other [facility] Other 12-13-2020 13:10-0400 Body mass index (BMI) [Ratio] 21.03 kg/m2 Chacho Domingo Other [facility] Other 12-13-2020 13:10-0400 Body temperature 98.4 [degF] Chacho Domingo Other [facility] Other 12-13-2020 13:10-0400 Body weight 52.16 kg Chacho Domingo Other [facility] Other 12-13-2020 13:10-0400 Diastolic blood pressure 81 mm[Hg] Chacho Domingo Other [facility] Other 12-13-2020 13:10-0400 SaO2% (BldA) [Mass fraction] 100 % Chacho Domingo Other [facility] Other 12-13-2020 13:10-0400 Systolic blood pressure 127 mm[Hg] Chacho Domingo Other [facility] Other 11-19-2020 13:15-0400 Body height 157.48 cm Albert White Other [facility] Other 11-19-2020 13:15-0400 Body mass index (BMI) [Ratio] 20.12 kg/m2 Albert White Other [facility] Other 11-19-2020 13:15-0400 Body temperature 98.9 [degF] Albert White Other [facility] Other 11-19-2020 13:15-0400 Body weight 49.9 kg Albert White Other [facility] Other 11-19-2020 13:15-0400 Diastolic blood pressure 91 mm[Hg] Albert White Other [facility] Other 11-19-2020 13:15-0400 SaO2% (BldA) [Mass fraction] 100 % Albert White Other [facility] Other 11-19-2020 13:15-0400 Systolic blood pressure 149 mm[Hg] Albert White Other [facility] Other 11-06-2020 15:00-0400 Body weight 51.26 kg Pankaj Berger Other [facility] Other 08-30-2020 13:02-0400 Body weight 56 kg Terence Pyle Work Phone: XV-Ubwniogkpa-Topviz nds Work Phone: 08-30-2020 13:02-0400 42 1 Terence Pyle Work Phone: QM-Sgtmneuwdb-Kegsuw nds Work Phone: Comment on above: 2-20_WPerc 11-05-2019 12:33-0400 BMI (Body Mass Index) 22.76 kg/m2 Chica Haim ZM-Jqeeutzjow-Yndcgw ogy-Admin RBC 585 Work Phone: 11-05-2019 12:33-0400 Body weight 56.81 kg Chica Haim XO-Mjhupdaimx-M eurol ogy-Admin RBC 585 Work Phone: 11-05-2019 12:33-0400 BP Diastolic 77 mm[Hg] Chica Haim HY-Xasixgsuwx-W eurol ogy-Admin RBC 585 Work Phone: 11-05-2019 12:33-0400 BP Systolic 127 mm[Hg] Chica Haim SB-Yizxlrzjii-J eurol ogy-Admin RBC 585 Work Phone: 11-05-2019 12:33-0400 BSA (Body Surface Area) 1.57 m2 Chica Haim VY-Tuizldhbao-Opbmwh ogy-Admin RBC 585 Work Phone: 11-05-2019 12:33-0400 Height 158 cm Chica Haim HQ-Ylncshtqud-U eurol ogy-Admin RBC 585 Work Phone: 11-05-2019 12:33-0400 21 1 Chica Haim GR-Vhqkbyepfy-X eurol ogy-Admin RBC 585 Work Phone: Comment on above: 2-20 Stature Percentile 11-05-2019 12:33-0400 49 1 Chica Haim UT-Wsssalcrks-L eurol ogy-Admin RBC 585 Work Phone: Comment on above: 2-20 Weight Percentile 11-05-2019 12:33-0400 64 1 Chica Haim HF-Dalnimsbyk-M eurol ogy-Admin RBC 585 Work Phone: Comment on above: BMI Percentile 08-25-2019 12:37-0400 BMI (Body Mass Index) 22.79 kg/m2 Chica Haim XR-Gyttxoxwma-Axrzol og-Admin RBC 585 Work Phone: 08-25-2019 12:37-0400 Body weight 56.9 kg Chica Haim GJ-Cwqccpwcmb-O eurol og-Admin RBC 585 Work Phone: 08-25-2019 12:37-0400 BP Diastolic 76 mm[Hg] Chica Haim WB-Ftksemgate-D eurol og-Admin RBC 585 Work Phone: 08-25-2019 12:37-0400 BP Systolic 126 mm[Hg] Chica Haim II-Kkyfyrftad-M eurol og-Admin RBC 585 Work Phone: 08-25-2019 12:37-0400 BSA (Body Surface Area) 1.57 m2 Chica Haim AX-Azrmmfdjxu-Kerbec og-Admin RBC 585 Work Phone: 08-25-2019 12:37-0400 Height 158 cm Chica Haim FC-Qxcqbkqjko-S eurol og-Admin RBC 585 Work Phone: 08-25-2019 12:37-0400 21 1 Chica Haim PR-Bipgtkfopu-N eurol og-Admin RBC 585 Work Phone: Comment on above: 2-20 Stature Percentile 08-25-2019 12:37-0400 51 1 Chica Whitmore FF-Bmiiahocfa-J eurol og-Admin RBC 585 Work Phone: Comment on above: 2-20 Weight Percentile 08-25-2019 12:37-0400 65 1 Chica Whitmore QW-Ppsubatzvg-Z eurol og-Admin RBC 585 Work Phone: Comment on above: BMI Percentile Encounters Encounter Date Encounter Type Care Provider Facility Start: 05-06-2024 End: 05-06-2024 Clinisync Result Encounter Generic External Data Provider [facility] External Department Unsolicited Start: 05-06-2024 End: 05-06-2024 Clinisync Result Encounter Generic External Data Provider [facility] External Department Unsolicited Start: 05-06-2024 End: 05-06-2024 ambulatory NAVID ALONDRA Not Available Start: 04-29-2024 End: 04-29-2024 ambulatory Ok Tyson DO Work Phone: [facility] Work Phone: Start: 04-29-2024 End: 04-29-2024 Patient encounter procedure Ok Tyson DO Work Phone: [facility]-3 East Labor - O/P Start: 04-29-2024 End: 04-29-2024 Clinisync Result Encounter Generic External Data Provider [facility] External Department Unsolicited Start: 04-29-2024 End: 04-29-2024 Clinisync Result Encounter Generic External Data Provider [facility] External Department Unsolicited Start: 04-27-2024 End: 04-27-2024 ambulatory NAVID ALONDRA Not Available Start: 04-22-2024 End: 04-22-2024 flow [...] Ok Tyson DO Work Phone: [facility]-3 East Labor and Delivery Work Phone: Start: 03-25-2024 End: 03-25-2024 ambulatory Ok Sotoisabela TOLLIVER Work Phone: [facility] Work Phone: Start: 03-25-2024 End: 03-25-2024 Emergency department patient visit Ok Tyson DO Work Phone: [facility]-Emergency Room Work Phone: Start: 03-11-2024 End: 03-11-2024 Office outpatient visit 15 minutes Navid Alondra DO Work Phone: [facility] Comment on above: 28 weeks gestation o f ; Third trimester ; Gestational diabetes mellitus (GDM), antepartum, gestational diabetes method of control unspecified Start: 03-11-2024 End: 03-11-2024 ambulatory NAVID ALONDRA Not Available Start: 02-25-2024 End: 02-25-2024 Office outpatient visit 15 minutes Navid Alondra DO Work Phone: [facility] Comment on above: size inconsist ent with dates (Primary Dx); Second trimester ; 26 weeks gestation of Start: 02-25-2024 End: 02-25-2024 ambulatory NAVID ALONDRA Not Available Start: 02-25-2024 End: 02-25-2024 Bamboo flowsheet Navid Alondra DO Work Phone: [facility] Start: 02-25-2024 End: 02-25-2024 Bamboo flowsheet Navid Alondra DO Work Phone: [facility] Start: 02-21-2024 End: 02-21-2024 Clinisync Result Encounter Linda MITCHELL Work Phone: [facility] External Department Unsolicited Start: 02-21-2024 End: 02-21-2024 Clinisync Result Encounter Linda MITCHELL Work Phone: [facility] External Department Unsolicited Start: 02-09-2024 End: 02-09-2024 Office outpatient visit 15 minutes Rahel L Ginaion OSTOMY CARE NURSE Work Phone[facility] Comment on above: Acute non-recurrent pansinusitis [...] Bamboo flowsheet Linda Robert PA Work Phone: [facility] Start: 01-22-2024 End: 01-22-2024 Bamboo flowsheet Linda Robert PA Work Phone: [facility] Start: 01-12-2024 End: 01-12-2024 Periodic preventive med est patient 18-39 yrs Ok Tyson DO Work Phone: [facility] Comment on above: Wellness examination (Primary Dx); Right leg pain; Celiac disease (CMS/HCC); Acquired right calf asymmetry Start: 01-12-2024 End: 01-12-2024 ambulatory OK SOTOBEATRIZDamon Not Available Start: 01-12-2024 End: 01-12-2024 Patient encounter status Ok Tyson DO Work Phone: [facility] Start: 01-03-2024 End: 01-03-2024 Patient encounter procedure Ok Tyson DO Work Phone: [facility] Main [place] Work Phone: Start: 01-03-2024 End: 01-03-2024 ambulatory Ok Tyson Facility:[facility] Start: 01-02-2024 End: 01-02-2024 Office outpatient visit 25 minutes Yaritza Gonzalez OSTOMY CARE NURSE Work Phone: [facility] Comment on above: Pain of left calf (P rimary Dx); Swelling of calf Start: 01-02-2024 End: 01-02-2024 ambulatory YARITZA GONZALEZ Not Available Start: 12-24-2023 End: 12-24-2023 Patient encounter procedure Navid Cantu DO Work Phone: [facility] Work Phone: Start: 12-24-2023 End: [...] Office outpatient visit 25 minutes Suzan Patrick OSTOMY CARE NURSE Work Phone: [facility] Comment on above: Acute [...] Department Unsolicited Start: 10-23-2023 End: 10-23-2023 ambulatory ILNDA ROBERT Not Available Start: 10-23-2023 End: 10-23-2023 Office outpatient visit 5 minutes [facility] Nurse [facility] Comment on above: GA: 8w5d Start: 08-06-2023 End: 08-06-2023 ambulatory TERENCE A VISCI Not Available Start: 07-04-2023 End: 07-04-2023 ambulatory DO Ok Tyson Work Phone: [facility] Work Phone: Start: 07-04-2023 End: 07-04-2023 Patient encounter procedure DO Ok Tyson Work Phone: [facility] Work Phone: Start: 06-18-2023 End: 06-18-2023 ambulatory OK TYSON Not Available Start: 06-07-2023 Non-patient / Non-visit DO Guillermo Tyson Work Phone: [facility] Work Phone: Start: 06-02-2023 End: 06-02-2023 ambulatory TERENCE A VISCI Not Available Start: 05-31-2023 End: 05-31-2023 Patient encounter procedure DO Ok Tyson Work Phone: [facility]-Electrodiagnostics Work Phone: Start: 05-31-2023 End: 05-31-2023 ambulatory DO Ok Tyson Work Phone: [facility] Work Phone: Start: 05-23-2023 End: 05-23-2023 ambulatory TERENCE A VISCI Not Available Start: 05-14-2023 End: 05-14-2023 ambulatory RAHEL MOLINA Not Available Start: 09-23-2022 End: 09-23-2022 ambulatory DO Ok Vaschak Work Phone: [facility] Work Phone: Start: 09-23-2022 End: 09-23-2022 Patient encounter procedure DO Ok Tyson Work Phone: [facility]- Visit Work Phone: Start: 09-18-2022 End: 09-20-2022 Evaluation and management of inpatient DO Ok Tyson Work Phone: [facility]-[address] [place] Work Phone: Start: 09-03-2022 End: 09-03-2022 Departed Referred DO Ok Tyson Work Phone: [facility]-Lab [facility] [place] Work Phone: Start: 08-10-2022 End: 08-10-2022 ambulatory DO Ok Tyson Work Phone: [facility] Work Phone: Start: 08-10-2022 End: 08-10-2022 Patient encounter procedure DO Ok Tyson Work Phone: [facility]-3 East Labor - O/P Start: 11-25-2021 End: 11-26-2021 Emergency department patient visit Rayray Aquino Facility:[facility] Start: 11-25-2021 End: 11-25-2021 Emergency department patient visit Rayray RadhaCharley Kenia [facility] Start: 10-09-2021 End: 10-09-2021 Patient encounter procedure DO Ok Tyson Work Phone: [facility] Start: 09-23-2021 End: 09-23-2021 ambulatory Pankaj Berger Other [facility] Other Start: 09-23-2021 Telephone encounter Pankaj Berger [facility] Start: 09-18-2021 End: 09-18-2021 ambulatory Pankaj Berger Other [facility] Other Start: 09-18-2021 Telephone encounter Pankaj STONE [facility] Start: 09-13-2021 End: 09-13-2021 Patient encounter procedure DO Ok Tyson Work Phone: [facility] Start: 09-03-2021 Rx Renewal Terence Eugene er Work Phone: JY-Eenvnfqdnu-Fnsifc 220 Work Phone: Start: 08-20-2021 End: 08-20-2021 Patient encounter procedure DO Ok Tyson Work Phone: [facility]-Electrodiagnostics Start: 07-03-2021 End: 07-03-2021 ambulatory Pankaj Berger Other [facility] Other Start: 07-03-2021 Telephone encounter Pankaj STONE [facility] Start: 06-11-2021 End: 06-11-2021 ambulatory Pankaj Berger Other [facility] Other Start: 06-11-2021 Telephone encounter Pankaj STONE [facility] Start: 06-02-2021 Rx Renewal Terence Eugene er Work Phone: YJ-Cydinwumqg-Tjtcyszfl-Ad min RBC 585 Work Phone: Start: 05-30-2021 ambulatory Terence Pyle Facility: Start: 05-30-2021 Office outpatient vi sit 15 minutes Terence Pyle Work Phone: OR-Gxsqenexqf-Lrwzbhjqc-Ad min RBC 585 Work Phone: Start: 05-30-2021 Patient encounter procedure Terence Pyle Work Phone: QJ-Wllqvyvpg-Cxejbtar H DO Work Phone: Start: 05-17-2021 End: 05-17-2021 Emergency department patient visit Bipin Skelton [facility] Start: 05-11-2021 Telephone encounter Terence Pyle Work Phone: SO-Xhedlbscgh-Vzebmelbkbw 220 Work Phone: Start: 04-27-2021 End: 04-27-2021 ambulatory Pankaj Berger Other [facility] Other Start: 04-27-2021 Telephone encounter Pankaj Serrano [facility] Start: 04-09-2021 AUDIT Terence hoffmann Work Phone: ZU-Kzocfekalz-Emnzqwfmtdi 814 Work Phone: Start: 04-06-2021 End: 04-06-2021 ambulatory Albert White Other [facility] Other Start: 04-06-2021 Telephone encounter Albert White [facility] Start: 04-05-2021 End: 04-05-2021 ambulatory Pankaj Berger Other [facility] Other Start: 04-05-2021 Telephone encounter Pankaj Serrano [facility] Start: 04-04-2021 End: 04-04-2021 ambulatory Albert Kingsport Other [facility] Other Start: 04-04-2021 Office outpatient vi sit 15 minutes Albert White [facility] Start: 04-03-2021 End: 04-03-2021 ambulatory Pankaj Berger Other [facility] Other Start: 04-03-2021 Telephone encounter Pankaj Serrano [facility] Start: 03-30-2021 End: 03-30-2021 ambulatory Pankaj Berger Other [facility] Other Start: 03-30-2021 Telephone encounter Pankaj STONE [facility] Start: 03-26-2021 Rx Renewal Terence Jimena Valorie er Work Phone: OM-Tinrkdvctr-Xereeptk 1600 Work Phone: Start: 03-22-2021 ambulatory Terence Pyle Facility:[id number] Start: 03-22-2021 Office outpatient vi sit 15 minutes Terence Jimena Pyle Work Phone: RR-Efusddxosz-Zjvohehld-Ad min RBC 585 Work Phone: Start: 03-22-2021 Patient encounter procedure Terence Pyle Work Phone: TJ-Qbqouxyfst-Dudxor 220 Work Phone: Start: 2021 End: 2021 ambulatory Pankaj Berger Other [facility] Other Start: 2021 Patient encounter procedure Pankaj Berger [facility] Start: 03-07-2021 End: 03-07-2021 ambulatory Pankaj Berger Other [facility] Other Start: 03-07-2021 Telephone encounter Pankaj STONE [facility] Start: 02-15-2021 End: 02-15-2021 ambulatory Pankaj Berger Other [facility] Other Start: 02-15-2021 Telephone encounter Pankaj STONE [facility] Start: 02-12-2021 End: 02-12-2021 ambulatory Brenda Ginty Other [facility] Other Start: 02-12-2021 Office outpatient vi sit 5 minutes Brenda Ginty [facility] Start: 12-20-2020 End: 12-20-2020 ambulatory Pankaj Berger Other [facility] Other Start: 12-20-2020 Telephone encounter Pankaj STONE [facility] Start: 12-14-2020 (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 [facility] Start: 12-14-2020 End: 12-14-2020 ambulatory Laura Day Other [facility] Other Start: 12-13-2020 End: 12-13-2020 ambulatory Chacho Domingo Other [facility] Other Start: 12-13-2020 Office outpatient vi sit 15 minutes Chacho Domingo [facility] Start: 12-11-2020 End: 12-11-2020 ambulatory Pankaj Berger Other [facility] Other Start: 12-11-2020 Telephone encounter Pankaj STONE [facility] Start: 11-28-2020 AUDIT Terence Eugene er Work Phone: HW-Iyarblyjsl-Hncvjryaq-Ad min RBC 585 Work Phone: Start: 11-27-2020 Telephone encounter Pankaj STONE [facility] Start: 11-21-2020 Telephone encounter Pankaj STONE [facility] Start: 11-19-2020 Office outpatient vi sit 15 minutes Albert White [facility] Urgent [facility] Start: 11-08-2020 Telephone encounter Pankaj STONE [facility] Start: 11-06-2020 Patient encounter procedure Pankaj Berger [facility] Start: 09-27-2020 AUDIT Terence Eugene er Work Phone: XV-Bqhacctnsx-Oyyyygvap Work Phone: Start: 08-30-2020 Office outpatient vi sit 15 minutes Terence Pyle Work Phone: OY-Eekqbvbcnc-Ftzuvazfk Work Phone: Start: 08-22-2020 AUDIT Terence Eugene er Work Phone: JD-Qcmtowrvqk-Jwshlzahp-Ad min RBC 585 Work Phone: Start: 07-19-2020 Rx Renewal Terence Eugene er Work Phone: PA-Tjpgzqinko-Uurfhopis-Ad min RBC 585 Work Phone: Start: 03-29-2020 Patient encounter procedure Chica Whitmore MEDICAL SECRETARY RECEPTIONIST-PLUG PASTER, MEDICAL SECRETARY RECEPTIONIST-EMR TRAINER OW-Rvziulrdew-Yeojpgve 1600 Work Phone: Start: 12-29-2019 Patient encounter procedure Chica Whitmore MEDICAL SECRETARY RECEPTIONIST-PLUG PASTER, MEDICAL SECRETARY RECEPTIONIST-EMR TRAINER ZN-Maetpfebmc-Twulefja 1600 Work Phone: Start: 12-24-2019 End: 12-24-2019 Patient encounter procedure Bree (Lidding Machine Operator) Aleshia Work Phone: [facility] Start: 12-24-2019 Results Only Bree (Lidding Machine Operator) Alehsia Work Phone: Colorectal Surgery Start: 12-10-2019 End: 12-10-2019 Orders Only Bree (Lidding Machine Operator) Aleshia Work Phone: Gastroenterology Comment on above: Constipation, unspec ified constipation type (Primary Dx) Start: 11-05-2019 Patient encounter procedure Chica Whitmore WY-Eutdmodzwc-Ybsxlxbsl-Ad min RBC 585 Work Phone: Start: 08-25-2019 Patient encounter procedure Chica Whitmore ED-Wyepqydesm-Pvndgqkz-Adm in RBC 585 Work Phone: Start: 04-28-2019 Patient encounter procedure Chica Whitmore EO-Lmvpkyvphc-Ooihefos-Adm in RBC 585 Work Phone: Start: 12-30-2018 Patient encounter procedure Chica Finkwell CN-Tdffuembyd-Orfxxwogh Work Phone: Start: 09-30-2018 Patient encounter procedure Chica Whitmore VG-Qapbwfzayp-Oeyfbihyf Work Phone: Start: 04-29-2018 Patient encounter procedure Chica Finkwell DG-Irjgpkoiky-Dzsldbdma Work Phone: Start: 01-28-2018 Patient encounter procedure Chica Whitmore [facility] Work Phone: Start: 11-07-2017 Patient encounter procedure Chica HOPEYX-Mstcwmpzel-Lpaztjfdg Work Phone: Start: 08-01-2017 Patient encounter procedure Chica Whitmore [facility] Work Phone: Start: 05-02-2017 Patient encounter procedure Chica Whitmore [facility] Work Phone: Procedures Date Procedure Procedure Detail Performing Clinician Start: 05-06-2024 US OB BPP W NON-STRESS Generic Ext ernal Data Provider Start: 04-29-2024 ALL CBC WITH AUTO DIFF Navid Alondra DO Work Phone: Start: 04-22-2024 OB BPP W NON-STRESS Generic Ext ernal [...] Start: 02-09-2024 STATUS COVID-19/FLU Rahel Antonietta Molina OSTOMY CARE NURSE Work Phone: Start: 01-22-2024 Urnls dip stick/tablet rgnt non-auto w/o micrscp Linda MITCHELL Work Phone: Start: 01-03-2024 Comprehensive metabolic panel Yaritza Gonzalez OSTOMY CARE NURSE Work Phone: Start: 01-03-2024 HEMOGRAM CBC WITHOUT DIFF ([facility] Yaritza Gonzalez OSTOMY CARE NURSE Work Phone: Start: 12-24-2023 RECURRENT VAGINITIS (HTRX) [...] A strit Hajdari Urine culture DO Ok Kaur ladidamon Work Phone: Plan of Treatment Date Care Activity Detail Author Start: 05-06-2024 End: 05-06-2024 Patient encounter procedure 05/06/2024 10:00 AM EDT Routine [facility] [address] [facility] [phone] Navid Cantu, [address] [place] [address] [facility] Start: 05-06-2024 End: 05-06-2024 Professional / ancillary services management [facility] Start: 04-29-2024 [facility] Start: 04-29-2024 Hospital admission [facility] Start: 04-29-2024 Urine culture [facility] Start: 04-29-2024 Bacteria identified in Urine by Culture Urine Culture [facility] Start: 04-27-2024 End: 04-27-2024 Patient encounter procedure 04/27/2024 3:00 PM EDT Routine [facility] [address] [facility] [id number] Navid Cantu, [facility] [place] [address] [facility] Start: 04-22-2024 End: 04-22-2024 [...] Routine [facility] [address] [place] [phone] Linda Robert PA [address] [place] [address] [facility] Start: 04-08-2024 End: 04-08-2024 Professional / ancillary services management 04/08/2024 3:00 PM EST Ancillary Procedure [facility] [address] [facility] [place] [phone] [facility] Start: 03-25-2024 End: 03-25-2024 Patient encounter procedure 03/25/2024 3:40 PM EST Routine [facility] [address] [facility] [place] [phone] Linda Robert PA [address] [facility] [address] [place], [place] [id number] [facility] Start: 03-25-2024 [facility] Start: 03-25-2024 Hospital admission [facility] Start: 03-11-2024 End: 03-11-2025 US for US OB follow up transabdominal approach Imaging Routine Third trimester Gestational diabetes mellitus (GDM), antepartum, gestational diabetes method of control unspecified Expected: 03/11/2024, Expires: 03/11/2025 [facility] Work Phone: Comment on above: Expected: 03/11/2024 , Expires: 03/11/2025 Start: 03-11-2024 End: 03-11-2024 Patient encounter procedure [facility] Start: 02-25-2024 End: 02-25-2024 Patient encounter procedure 02/25/2024 3:10 PM EST Routine [facility] [address] [facility] [place] [phone] Navid Cantu DO [address] [place], [place] [id number] [facility] Start: 02-25-2024 End: 02-24-2025 [...] IM [address] [place] [address] Ok Tyson DO [address] [place] [address] [facility] Start: 12-24-2023 End: 12-24-2023 Patient encounter procedure 12/24/2023 3:40 PM EST Routine [facility] [address] [place] [phone] Navid Cantu DO [address] [place] [address] [facility] Start: 12-24-2023 End: 06-22-2024 Alpha fetoprotein, maternal Alpha fetoprotein, maternal Lab Routine Second trimester 17 weeks gestation of Expected: 12/24/2023 (Approximate), Expires: 06/22/2024 [facility] Comment on above: Expected: 12/24/2023 [...] Missed menses Expected: 10/23/2023 (Approximate), Expires: 10/22/2024 [facility] Comment on above: Expected: 10/23/2023 (Approximate), Expires: 10/22/2024 Start: 10-23-2023 End: 10-22-2024 Blood type and Indirect antibody screen panel - Blood Type and screen Lab Routine Missed menses Expected: 10/23/2023 (Approximate), Expires: 10/22/2024 [facility] Work Phone: Comment on above: Expected: 10/23/2023 (Approximate), Expires: 10/22/2024 Start: 10-23-2023 End: 10-22-2024 Drugs of abuse panel - Urine by Screen method Rapid drug screen, urine Lab Routine Encounter for supervision of normal first in first trimester , unspecified gestational age Expected: 10/23/2023 (Approximate), Expires: 10/22/2024 [facility] Comment on above: Expected: 10/23/2023 (Approximate), Expires: 10/22/2024 Start: 10-23-2023 End: 10-22-2024 US Pelvis transvaginal US OB transvaginal Imaging Routine Missed menses Expected: 10/23/2023 (Approximate), Expires: 10/22/2024 [facility] Comment on above: Expected: 10/23/2023 (Approximate), Expires: 10/22/2024 Start: 10-12-2023 Influenza vaccination Influenza Vacc ine (#1) [facility] Start: 07-04-2023 [facility] Start: 09-20-2022 [facility] Start: 09-19-2022 Hospital admission [facility] Start: 09-18-2022 Hospital admission [facility] Start: 08-10-2022 [facility] Start: 08-10-2022 Hospital admission [facility] Start: 08-10-2022 Bacteria identified in Urine by Culture Urine Culture [facility] Start: 10-09-2021 End: 10-09-2021 Patient encounter procedure Departed Clinical [facility] Start: 05-30-2021 FUV, Provider: Chica Whitmore, Status: Pen, Time: 12:30 PM FUV, Provider: Chica Whitmore, Status: Pen, Time: 12:30 PM AY-Lnfhycykng-Voflmm 220 Work Phone: Start: 02-28-2021 FUV, Provider: Chica Whitmore, Status: Pen, Time: 12:30 PM FUV, Provider: Chica Whitmore, Status: Pen, Time: 12:30 PM JT-Hnzdhurhmu-Jjeovv ogy-Admin RBC 585 Work Phone: Start: 08-30-2020 FUV, Provider: Chica Whitmore, Status: Pen, Time: 12:30 PM FUV, Provider: Chica Whitmore, Status: Pen, Time: 12:30 PM UZ-Jozayqikfu-Ickbuk ogy-Admin RBC 585 Work Phone: Start: 10-12-2019 Influenza vaccination INFLUENZA (#1) [facility] Start: 2019 CHLAMYDIA SCREENING (18-24) CHLAMYDIA SCREENING (18-24) [facility] Start: 2019 GC (GONORRHEA) SCREENING (18-24) GC (GONORRHEA) SCREENING (18-24) [facility] Start: 2019 HEPATITIS C SCREENING HEPATITIS C [facility] Start: 2019 HIV SCREENING HIV SCREENING [facility] Start: 2017 MENINGOCOCCAL CONJUG ATE (1 - 2-dose series) MENINGOCOCCAL CONJUGATE (1 - 2-dose series) [facility] Start: 2013 PHQ-A PHQ-A [facility] Start: 2012 HPV VACCINE (1 - 2-d ose series) HPV VACCINE (1 - 2-dose series) [facility] Start: 2008 Urine microalbumin profile DTAP,TDAP,TD (1 - Tdap) [facility] End: 12-09-2020 Anorectal manometry MANOMETRY ANORECTAL Endoscopy Routine Constipation, unspecified constipation type 1 Occurrences starting 12/23/2019 until 12/09/2020 [facility] Comment on above: 1 Occurrences starti ng 12/23/2019 until 12/09/2020 Bacteria identified in Urine by Culture Urine culture Microbiology Routine Missed menses Ordered: 10/23/2023 [facility] Comment on above: Ordered: 10/23/2023 CBC W Auto Different ial panel - Blood CBC and differential Lab Routine Missed menses Ordered: 10/23/2023 [facility] Comment on above: Ordered: 10/23/2023 CHLAMYDIA TRACHOMATI S (GENITO/STI) CHLAMYDIA TRACHOMATIS (GENITO/STI) Lab Routine STD exposure Ordered: 12/24/2023 [facility] Comment on above: Ordered: 12/24/2023 Cytology Cervical or vaginal smear or scraping study Pap Smear Pathology and Cytology Routine Well woman exam with routine gynecological exam Ordered: 12/24/2023 [facility] Comment on above: Ordered: 12/24/2023 Hemoglobin A1c/Hemoglobin.total in Blood Hemoglobin A1c Lab Routine Missed menses Ordered: 10/23/2023 [facility] Comment on above: Ordered: 10/23/2023 Hepatitis B virus surface Ag [Presence] in Serum or Plasma by Immunoassay Hepatitis B surface antigen Lab Routine Missed menses Ordered: 10/23/2023 [facility] Comment on above: Ordered: 10/23/2023 Hepatitis C virus Ab [Presence] in Serum or Plasma by Immunoassay Hepatitis C antibody Lab Routine Missed menses Ordered: 10/23/2023 [facility] Comment on above: Ordered: 10/23/2023 HIV-1/HIV-2 antigen/antibody combination immunoassay HIV-1 and HIV-2 antibodies Lab Routine Missed menses Ordered: 10/23/2023 [facility] Comment on above: Ordered: 10/23/2023 Neisseria gonorrhoea e DNA [Presence] in Unspecified specimen by PAMELA with probe detection Neisseria gonorrhea DNA probe, direct Lab Routine STD exposure Ordered: 12/24/2023 [facility] Comment on above: Ordered: 12/24/2023 Patient Education [facility] Work Phone: Patient referral [facility] Work Phone: PT ED PATIENT INFORMATION PT ED PATIENT INFORMATION Other 12/24/2019 [facility] Reagin Ab [Presence] in Serum by RPR RPR Lab Routine Missed menses Ordered: 10/23/2023 [facility] Comment on above: Ordered: 10/23/2023 Rubella antibody, IgG Rubella an tibody, IgG Lab Routine Missed menses Ordered: 10/23/2023 [facility] Comment on above: Ordered: 10/23/2023 SURESWAB(R) ADVANCED VAGINITIS PLUS, TMA SURESWAB(R) ADVANCED VAGINITIS PLUS, TMA Pathology and Cytology Routine Vaginal discharge Ordered: 12/24/2023 [facility] Work Phone: Comment on above: Ordered: 12/24/2023 [facility] Immunizations Immunization Date Immunization Notes Care Provider Jorge richard 11-11-2022 influenza, injectabl e, quadrivalent, preservative free Noms Nurse [facility] 11-11-2022 influenza virus vacc ine, unspecified formulation Noms Nurse [facility] 05-07-2021 pneumococcal polysaccharide vaccine, 23 valent Nom Nurse [facility] 10-25-2020 influenza, injectabl e, quadrivalent, preservative free Terence Pyle Work Phone: FW-Njnbibijta-Aeysf a 220 Work Phone: 06-09-2020 COVID-19 mRNA-1273 (Moderna) DO Ok Tyson Work Phone: [facility] 06-06-2020 Moderna COVID-19 Vac cine 100 MCG/0.5ML Intramuscular Suspension Terence Pyle Work Phone: [facility] 05-09-2020 Moderna COVID-19 Vac cine 100 MCG/0.5ML Intramuscular Suspension Terence Pyle Work Phone: mgRQ-Ebldlgavib-Oxgir ands Work Phone: 10-27-2019 meningococcal B vacc ine, recombinant, OMV, adjuvanted Terence Pyle Work Phone: mgJM-Xothpflcyf-Qaevm ands Work Phone: 10-07-2019 influenza, injectabl e, quadrivalent, preservative free Noms Nurse [facility] 03-04-2018 influenza, injectabl e, quadrivalent, preservative free Terence Pyle Work Phone: mgFG-Gettuykdqo-Jijyj ands Work Phone: 03-04-2018 meningococcal B vacc ine, recombinant, OMV, adjuvanted Terence Plye Work Phone: mgPE-Pqgmmuxcnc-Uxwxr ands Work Phone: 03-04-2018 meningococcal oligosaccharide (groups A, C, Y and W-135) diphtheria toxoid conjugate vaccine (MCV4O) Terence Pyle Work Phone: mgNU-Aqibiititf-Vebax ands Work Phone: 10-24-2016 Human Papillomavirus 9-valent vaccine Terence Pyle Work Phone: mgMB-Nljsizmuko-Dipoi ands Work Phone: 10-02-2016 diphtheria, tetanus toxoids and acellular pertussis vaccine Noms Nurse [facility] 09-28-2015 Human Papillomavirus 9-valent vaccine Terence Pyle Work Phone: mgVD-Eairzncwho-Bqzok ands Work Phone: 09-28-2015 meningococcal oligosaccharide (groups A, C, Y and W-135) diphtheria toxoid conjugate vaccine (MCV4O) Terence Pyle Work Phone: mgZP-Snngevbbzj-Wanfl ands Work Phone: 08-26-2013 hepatitis A vaccine, pediatric/adolescent dosage, 2 dose schedule Terence Jimena Pyle Work Phone: BM-Jpwxzdnjey-Eidka ands Work Phone: 08-26-2013 tetanus toxoid, redu deisy diphtheria toxoid, and acellular pertussis vaccine, adsorbed Terence Jimena Pyle Work Phone: VB-Ttcyjqsjfv-Ecdko ands Work Phone: 01-26-2009 novel Influenza-H1N1 -09, live virus for nasal administration Terence Pyle Work Phone: TW-Xyeoxdqsqt-Elfzu ands Work Phone: 12-28-2008 novel influenza-H1N1 -09, preservative-free, injectable Terence Pyle Work Phone: BF-Azbdwbwczx-Gfzgq ands Work Phone: 10-02-2006 diphtheria, tetanus toxoids and acellular pertussis vaccine, unspecified formulation Terence Pyle Work Phone: AA-Saeybrizit-Nxldt ands Work Phone: 10-02-2006 hepatitis A vaccine, unspecified formulation Terence Pyle Work Phone: DK-Azeaiatpun-Ggtdx ands Work Phone: 10-02-2006 measles, mumps and rubella virus vaccine Terence Pyle Work Phone: QY-Wpovjtkxqg-Zusle ands Work Phone: 10-02-2006 poliovirus vaccine, inactivated Terence Pyle Work Phone: JF-Wgyohbzcli-Xafin ands Work Phone: 10-02-2006 varicella virus vaccine Rich marzenaluciano Pyle Work Phone: EK-Phpbwnktlt-Qwqrr ands Work Phone: 06-01-2002 diphtheria, tetanus toxoids and acellular pertussis vaccine, unspecified formulation Terence Pyle Work Phone: QI-Zhvtfcqlrm-Arnjx ands Work Phone: 06-01-2002 haemophilus influenz ae type b vaccine, conjugate unspecified formulation Terence Hess Pyle Work Phone: LP-Joudbuktpv-Byawd ands Work Phone: 06-01-2002 measles, mumps and rubella virus vaccine Terence Hess Pyle Work Phone: HQ-Uxygplndhe-Itbxz ands Work Phone: 06-01-2002 varicella virus vaccine Marito Pyle Work Phone: QF-Pdvijdruzv-Capzb ands Work Phone: 2001 diphtheria, tetanus toxoids and acellular pertussis vaccine, unspecified formulation Terence Hess Pyle Work Phone: QM-Cnvfucozom-Efviq ands Work Phone: 2001 haemophilus influenz ae type b conjugate and Hepatitis B vaccine Terence Jimena Pyle Work Phone: LO-Vgigfhngvd-Dywga ands Work Phone: 2001 pneumococcal conjuga te vaccine, 7 valent Terence Pyle Work Phone: BI-Lytzxgszyf-Pvfml ands Work Phone: 2001 poliovirus vaccine, inactivated Terence Jimena Pyle Work Phone: LB-Lwzzdjfyvk-Ipaad ands Work Phone: 2001 diphtheria, tetanus toxoids and acellular pertussis vaccine, unspecified formulation Terence Jimena Pyle Work Phone: DW-Twrrlvffdt-Kmrdw ands Work Phone: 2001 haemophilus influenz ae type b vaccine, conjugate unspecified formulation Terence Pyle Work Phone: SJ-Pidrxecngi-Fkzmd ands Work Phone: 2001 pneumococcal conjuga te vaccine, 7 valent Terence Pyle Work Phone: YN-Gtdrjowjrq-Rnryi ands Work Phone: 2001 poliovirus vaccine, inactivated Terence Pyle Work Phone: mgMI-Sugykznwti-Fnnip ands Work Phone: 2001 diphtheria, tetanus toxoids and acellular pertussis vaccine, unspecified formulation Terence Pyle Work Phone: mgEK-Albalmbrxx-Acxbq ands Work Phone: 2001 haemophilus influenz ae type b conjugate and Hepatitis B vaccine Terence Pyle Work Phone: JT-Xztzdacmlc-Dyjkr ands Work Phone: 2001 poliovirus vaccine, inactivated Terence Pyle Work Phone: AG-Vyesyunhxr-Qzcdf ands Work Phone: 2001 hepatitis B vaccine, pediatric or pediatric/adolescent dosage Terence Pyle Work Phone: mgMR-Chtdzcikdg-Sxfcx ands Work Phone: Payers Date Payer Category Payer [facility] [id number] 2024 Unknown [id number] 2024 Unknown [id number] 2023 Self-pay [id number] 2022 Private Health Insurance [employer] [id number] 2022 Unknown [id number] 2.16.840.1.694301.19 2022 Medicaid [id number]. 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 [id number] 2001 Unknown [id number] 2.16.840.1.419973.3.579.2. 356 2001 Unknown [id number] 2.16.840.1.625104.3.579.2. 727 2001 Unknown [id number] 2.16.840.1.649687.3.579.2. 1259 2001 Unknown [id number] 2.16.840.1.680084.3.579.2. 1259 2001 Unknown [id number] 2.16.840.1.008139.3.579.2. 1259 2001 Unknown [id number] 2.16.840.1.592904.3.579.2. 1259 2001 Unknown [id number] 2.16.840.1.863799.3.579.2. 1259 2001 Unknown [id number] 2.16.840.1.554452.3.579.2. 1259 2001 Unknown [id number] 2.16.840.1.041269.3.579.2. 1259 2001 Unknown [id number] 2.16.840.1.816679.3.579.2. 1258 2001 Unknown [id number] 2.16.840.1.647834.3.579.2. 1258 2001 Unknown [id number] 2.16.840.1.269623.3.579.2. 1258 2001 Unknown [id number] 2.16.840.1.032296.3.579.2. 1258 2001 Unknown [id number] 2.16.840.1.022300.3.579.2. 1258 2001 Unknown [id number] 2.16.840.1.797301.3.579.2. 1258 2001 Unknown [id number] 2.16.840.1.884488.3.579.2. 1258 2001 Unknown [id number] 2.16840.1.603844.3.579.2. 1258 2001 Unknown [id number] 2.16.840.1.011397.3.579.2. 1258 2001 Unknown [id number] 2.16.840.1.554573.3.579.2. 1258 2001 Unknown [id number] 2.16.840.1.328910.3.579.2. 1258 2001 Unknown [id number] 2.16840.1.918905.3.579.2. 1258 2001 Unknown [id number] 2.16.840.1.365008.3.579.2. 1258 2001 Unknown [id number] 2.16.840.1.691612.3.579.2. 1258 2001 Unknown [id number] 2.16.840.1.130010.3.579.2. 1258 2001 Unknown [id number] 2.16.840.1.859540.3.579.2. 1258 2001 Unknown [id number] 2.16.840.1.234134.3.579.2. 1259 2001 Unknown [id number] 2.16.840.1.496462.3.579.2. 1259 1974 Unknown [id number] 2.16.840.1.994414.3.579.2. 356 Unknown [id number] Unknown HCAP/HFA/FAP Active [id number] Unknown [id number] 2.16.840.1.696012.3.579.2. 531 Unknown [id number] 2.16.840.1.226442.3.579.2. 531 Unknown [id number] 2.16.840.1.463639.3.579.2. 531 Unknown [id number] 2.16.840.1.735166.3.579.2. 531 Unknown [id number] 2.16.840.1.275242.3.579.2. 531 Social History Date Type Detail Facility Assertion Unknown if ever smoked [employer] Work Phone: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 Internal Medicine 07/19/22 Luis Antonio Blas DO [address] [place] [address] PCP - Medical [employer] 03/13/22 02/09/99 Show Worker Relationship Specialty Start Date End Date Ok Tyson DO [address] [place] [address] PCP - General Internal Medicine 07/19/22 Luis Antonio Blas DO [address] [place] [address] PCP - Medical [employer] 03/13/22 02/09/99 Show Worker Relationship Specialty Start Date End Date Ok Tyson DO [address] [place] [address] PCP - General Internal Medicine 07/19/22 Luis Antonio Blas DO [address] [place] [address] PCP - Medical [employer] 03/13/22 02/09/99 Show Worker Relationship Specialty Start Date End Date Ok Tyson DO [address] [place] [address] PCP - General Internal Medicine 07/19/22 Luis Antonio Blas DO [address] [place] [address] PCP - Medical [employer] 03/13/22 02/09/99 Show Worker Relationship Specialty Start Date End Date Ok Tyson DO [address] [place] [address] PCP - General Internal Medicine 07/19/22 Luis Antonio Blas DO [address] [place] [address] PCP - Medical [employer] 03/13/22 02/09/99 Show Worker Relationship Specialty Start Date End Date Ok Tyson, [address] [place] [address] PCP - General Internal Medicine 07/19/22 Ok Tyson, [address] [place] [address] PCP - Medical [employer] 03/13/22 02/09/99 Show Worker Relationship Specialty Start Date End Date Ok Tyson, [address] [place] [address] PCP - General Internal Medicine 07/19/22 Luis Antonio Blas, [address] [place] [address] PCP - Medical [employer] 03/13/22 01/22/24 Show Worker Relationship Specialty Start Date End Date Ok Tyson, [address] [place] [address] PCP - General Internal Medicine 07/19/22 Luis Antonio Blas DO [address] [place] [address] PCP - Medical [employer] 03/13/22 02/09/99 Show Worker Relationship Specialty Start Date End Date Ok Tyson DO [address] [place] [address] PCP - General Internal Medicine 07/19/22 Show Worker Relationship Specialty Start Date End Date Ok Tyson DO [address] [place] [address] PCP - General Internal Medicine 07/19/22 Show Worker Relationship Specialty Start Date End Date Ok Tyson DO [address] [place] [address] PCP - General Internal Medicine 07/19/22 Show Worker Relationship Specialty Start Date End Date Ok Tyson DO [address] [place] [address] PCP - General Internal Medicine 07/19/22 Show Worker Relationship Specialty Start Date End Date Ok Tyson DO [address] [place] [address] PCP - General Internal Medicine 07/19/22 Team Status: Active Member Role Status Dates Artur Kang MD [employer] Active Ok Tyson DO Primary Care Provider Active Team Status: Inactive Member Role Status Dates Ok Tyson DO Primary Care Provider Active Start: January 03, 2024 End: January 03, 2024 [facility] [place] Attending Provider Active Start: January 03, 2024 [...] March 25, 2024 End: March 25, 2024 Show Worker Relationship Specialty Start Date End Date Ok Tyson DO [address] [place] [address] PCP - General Internal Medicine 07/19/22 Show Worker Relationship Specialty Start Date End Date Ok Tyson DO [address] [place] [address] PCP - General Internal Medicine 07/19/22 Show Worker Relationship Specialty Start Date End Date Ok Tyson DO [address] [place] [address] PCP - General Internal Medicine 07/19/22 Show Worker Relationship Specialty Start Date End Date Ok Tyson DO [address] [place] [address] PCP - General Internal Medicine 07/19/22 Team Status: Inactive Member Role Status Dates Ok Tyson DO Primary Care Provider Active Start: April 29, 2024 End: April 29, 2024 Chica Newman DO Attending Provider Active S tart: April 29, 2024 End: April 29, 2024 Show Worker Relationship Specialty Start Date End Date Ok Tyson DO [address] [place] [address] PCP - General Internal Medicine 07/19/22 Goals [...] BE BASED ON THE PRIMARY CLINICAL RECORDS. [facility]. provides no warranty or guarantee of the accuracy or completeness of information in this document.
[2024-05-09 10:40] LABS: Bilirubin Urine NEGATIVE (NEGATIVE); Blood Urine NEGATIVE (NEGATIVE); Clarity Urine CLEAR (CLEAR); Color Urine LT. YELLOW (YELLOW); Glucose Urine UA 100 mg/dL (NEGATIVE); Ketones Urine NEGATIVE (NEGATIVE); Leukocyte Esterase Urine SMALL (NEGATIVE); Nitrite Urine NEGATIVE (NEGATIVE); Protein Urine NEGATIVE (NEG/TRACE); Specific Gravity Urine <=1.005 (1.005-1.025); Urine Microscopic Indicated YES; Urobilinogen Urine 0.2 EU/dL (0.2-1.0)
[2024-05-09 10:49] LABS: Bacteria Urine MODERATE #/HPF (NONE SEEN); Cast Seen? NONE SEEN #/LPF (NONE SEEN); Crystals Seen? None Seen #/HPF (None Seen); Mucus Urine NONE SEEN (NONE SEEN); RBC Urine 0-2 #/HPF (0-2); Squamous Epithelial Cell Urine MODERATE #/LPF (NONE/RARE); Urine Culture Indicated YES-LC
[2024-05-09] MEDS: ACETAMINOPHEN 300 MG/ 30 MG CODEINE TABLET 2 TAB PO (11:48)
[2024-05-09] MEDS: PROMETHAZINE HCL 25 MG/ML VIAL 12.5 MG IM (13:06)
== END 2024-05-09 13:20 | disposition home or self-care (01) ==
PROVIDERS: Admitting Provider Obstetrics & Gynecology; PCP Internal Medicine; Visit Provider Obstetrics & Gynecology
DX: O99.891 Other specified diseases and conditions complicating pregnancy (principal); R51.9 Headache, unspecified; Z3A.00 Weeks of gestation of pregnancy not specified
CPT/HCPCS: 81001; 87086; 96372; G0378; G0379; J2550

== ENCOUNTER 2024-05-10 15:59 | Inpatient (IN) | payer MEDICAID, SELFPAY ==
[2024-05-10] VITALS (16 sets, daily range): BP systolic 98–132; BP diastolic 55–75; PULSE 76–102; TEMP 37.3
[2024-05-10 17:48] LABS: Hematocrit 33.1 % (36.0-48.0); Hemoglobin 11.2 g/dL (12.0-16.0); Mean Corpuscular HGB Conc 33.8 g/dL (29.9-35.2); Mean Corpuscular Hemoglobin 30.4 pg (26.7-34.0); Mean Corpuscular Volume 89.9 fL (81.0-99.0); Mean Platelet Volume 10.9 fL (9.5-13.5); Platelet Count 205 10^3/uL (150-450); Red Blood Count 3.68 10^6/uL (4.20-5.40); Red Cell Distribution Width 12.4 % (11.0-15.0); White Blood Count 9.8 10^3/uL (4.0-11.0)
[2024-05-10 17:58] LABS: Amphetamine Screen Urine NEGATIVE (NEGATIVE); Barbiturates Screen Urine NEGATIVE (NEGATIVE); Benzodiazepines Screen Urine NEGATIVE (NEGATIVE); Buprenorphine Screen Urine NEGATIVE (NEGATIVE); Cannabinoid Screen Urine NEGATIVE (NEGATIVE); Cocaine Screen Urine NEGATIVE (NEGATIVE); Methadone Screen Urine NEGATIVE (NEGATIVE); Methamphetamines Screen Urine NEGATIVE (NEGATIVE); Opiate Screen Urine NEGATIVE (NEGATIVE); Oxycodone Screen Urine NEGATIVE (NEGATIVE); Phencyclidine Screen Urine NEGATIVE (NEGATIVE); Tricyclic Antidepressant Urine NEGATIVE (NEGATIVE)
[2024-05-10] MEDS: DINOPROSTONE 10 MG VAG INSERT.ER VAGINAL (18:06)
[2024-05-10] MEDS: ACETAMINOPHEN 500 MG TABLET 1000 MG PO (23:29)
[2024-05-10] MEDS: ZOLPIDEM TARTRATE 10 MG TABLET PO (23:29)
[2024-05-10] MEDS: INSULIN GLARGINE 300 UNIT/3 ML INSULN.PEN SQ (23:30)
[2024-05-11] VITALS (59 sets, daily range): BP systolic 89–143; BP diastolic 50–78; PULSE 73–118; TEMP 36.4–37.3
[2024-05-11] MEDS: OXYTOCIN/0.9 % SODIUM CHLORIDE 10 UNITS/500 ML PLAST..BAG 6 UNIT IV (06:25)
[2024-05-11] MEDS: 0.9 % SODIUM CHLORIDE 1,000 ML 125 ML IV ×2 (06:30→09:32)
[2024-05-11] MEDS: ROPIVACAINE HCL/PF 400 MG/200 ML PREMIX 6 MG EPIDURAL (08:10)
[2024-05-11 08:30] LABS: Glucometer 86 mg/dL (74-106)
[2024-05-11] MEDS: ONDANSETRON PF 4 MG/2 ML VIAL IV (08:31)
--- NOTE | 2024-05-11 10:04 | PM.OBPRCVD ---
Procedure Intrapartal events: None Induction method: per pitocin protocol Delivery augmentation: rupture of membranes and pitocin Delivery monitor: external FHT and external uterine Route of delivery: Episiotomy Description: none L&D Laceration Description: none Estimated blood loss (mL): 250 Anesthesia type: Epidural Disposition: floor Delivery date: 05/11/24 Gender: male presentation: vertex Placental delivery description: Spontaneous cord description: 3 Vessels and Nuchal Cord
[2024-05-11] MEDS: IBUPROFEN 600 MG TABLET PO (10:22)
[2024-05-11] MEDS: OXYTOCIN/0.9 % SODIUM CHLORIDE 20 UNITS/1,000 ML PLAST..BAG 125 UNIT IV (10:26)
== END 2024-05-11 17:10 | disposition home or self-care (01) | DRG 560 ==
PROVIDERS: Admitting Provider Obstetrics & Gynecology; PCP Internal Medicine; Visit Provider Obstetrics & Gynecology
DX: O24.424 Gestational diabetes mellitus in childbirth, insulin controlled (principal); Z37.0 Single live birth; O69.81X0 Labor and delivery complicated by cord around neck, without compression, not applicable or unspecified; Z3A.37 37 weeks gestation of pregnancy; O99.62 Diseases of the digestive system complicating childbirth; K90.0 Celiac disease; O99.891 Other specified diseases and conditions complicating pregnancy; R51.9 Headache, unspecified
CPT/HCPCS: 36415; 59050; 59410; 80307; 81001; 82948; 85027; 86850; 86900; 86901; 87086; 96372; G0378; G0379; J2405; J2550; J2795